=== PATIENT | female | born 1965 | race Caucasian/White ===

== ENCOUNTER → 2017-06-30 13:58 | Outpatient (CLI) | payer OTHER, SELFPAY ==
[2017-07-01 01:09] LABS: Rapid Plasmin Reagin (RPR) NONREACTIVE (NONREACTIVE)
== END ==
PROVIDERS: Nurse Practitioner Women's Health; Family Provider Family Medicine; PCP Family Medicine; Visit Provider Obstetrics & Gynecology
DX: Z11.3 Encounter for screening for infections with a predominantly sexual mode of transmission (principal)
CPT/HCPCS: 36415; 86592; 86695; 86696; 87340; 87522

== ENCOUNTER → 2017-06-30 20:31 | Outpatient (CLI) | payer OTHER, SELFPAY ==
[2017-06-30 22:24] LABS: Chlamydia Trachomatis by PCR Negative (Negative); Neisserai gonorrhoeae by PCR Negative (Negative); Probe Check PASS; Sample Adequacy Control PASS; Specimen Processing Control PASS
[2017-07-06 11:20] LABS: HPV APTIMA, High Risk Negative (Negative)
== END ==
PROVIDERS: Family Provider Family Medicine; PCP Family Medicine; Visit Provider Nurse Practitioner Women's Health
DX: Z11.3 Encounter for screening for infections with a predominantly sexual mode of transmission (principal); Z12.4 Encounter for screening for malignant neoplasm of cervix
CPT/HCPCS: 87491; 87591; 88175; G0145

== ENCOUNTER 2018-06-26 22:04 | Observation (INO) | payer OTHER, SELFPAY ==
[2018-06-26 22:05] VITALS: BP 175/108; PULSE 108; RESP 14; TEMP 36.9; O2SAT 96; BMI 37.8
[2018-06-26 22:11] VITALS: BP 175/108; PULSE 105; RESP 20; TEMP 36.9; O2SAT 94
--- NOTE | 2018-06-26 22:19 | EKG12_ITS ---
Test Reason : ABD PAIN/CP Blood Pressure : / mmHG Vent. Rate : 109 BPM Atrial Rate : 109 BPM P-R Int : 132 ms QRS Dur : 076 ms QT Int : 334 ms P-R-T Axes : 012 -38 048 degrees QTc Int : 449 ms Sinus tachycardia with occasional Premature ventricular complexes Nonspecific ST abnormality Abnormal ECG Confirmed by TYLER VERMA ([id number]), continuity editor YOHANA CHUN ([id number]) on 06/30/2018 1:24:40 PM Referred By: Nilton Nguyen Confirmed By:TYLER VERMA
[2018-06-26] MEDS: 0.9% Normal Saline 1,000 ML 125 ML IV (22:46)
[2018-06-26] MEDS: Ondansetron 4 MG/2 ML Vial IV (22:46)
[2018-06-26] MEDS: Morphine 4 MG/ML Syringe IV (22:48)
[2018-06-26 22:59] LABS: Absolute Lymphocyte Count 0.62 X10^3/ul (0.83-4.51); Absolute Neutrophil Count 5.8 X10^3/uL (2.0-7.7); Basophil# 0.02 X10^3/uL; Basophil% 0.3 % (0-1); Eosinophil# 0.02 X10^3/uL; Eosinophils% 0.3 % (0-5); Hematocrit 50.1 % (37-47); Hemoglobin 16.1 g/dl (12.0-15.0); Lymphocyte # 0.62 X10^3/ul (4.0); Lymphocyte % 9.2 % (19-41); Mean Corp Hgb Conc 32.1 g/gl (32-36); Mean Corpuscular Hgb 26.8 pg (27.0-32.0); Mean Corpuscular Volume 83.5 fL (81-99); Mean Platelet Vol. 10.3 fl (6.2-12.0); Monocyte# 0.28 X10^3/uL; Monocyte% 4.2 % (0-10); Neutrophil # 5.78 X10^3/uL (2.7-7.7); Neutrophil % 85.7 % (47-70); POSITIVE COUNT NO; POSITIVE DIFFERENTIAL NO; POSITIVE MORPHOLOGY NO; Platelet Count 237 K/mm3 (150-450); RBC Distribution Width CV 14.1 % (11.6-14.6); RBC Distribution Width SD 43.6 fl (35.1-43.9); White Blood Count 6.7 K/mm3 (4.4-11.0)
[2018-06-26 23:19] LABS: AST(SGOT) 24 U/L (15-37); Alanine Aminotransfer ALT/SGPT 27 U/L (13-56); Albumin, Serum 3.6 g/dL (3.2-5.0); Alkaline Phosphatase 79 U/L (45-117); Anion Gap 9 (5-15); BUN 11 mg/dL (7-18); BUN/Creat Ratio 13.4 RATIO (10-20); Bilirubin, Direct 0.15 mg/dL (0.00-0.30); Calcium,Total 8.7 mg/dL (8.5-10.1); Chloride 105 mmol/L (98-107); Creatinine, Serum 0.82 mg/dL (0.55-1.02); EST Glomerular Filtration Rate 78 mL/min (>60); Est Glom Filt Rate - Afr Amer 94 mL/min (>60); Estimated Creatinine Clearance 60.56 ml/min; Globulin 3.4 g/dL (2.2-4.2); Glucose 121 mg/dL (74-106); Lipase 80 U/L (73-393); Potassium 3.4 mmol/L (3.5-5.1); Sodium Level 138 mmol/L (136-145)
--- NOTE | 2018-06-26 23:58 | ED.VISSUMM ---
- ER Visit Summary Date of Service: 06/26/18 Chief Complaint: Abdominal pain History of Present Illness: The patient is a 53 F with diffuse abdominal pain he describes it as cramping sensation. He occasionally has radiated to the epigastric region but is mostly in the left lower quadrant and left flank. No chest pain or shortness of breath. No cough. No neck pain or headaches. No confusion. No rash or fever. Physical Examination: Mild tenderness in the left lower quadrant. Bowel sounds normal. No clinical evidence of DVT. Strong pulses in all extremities. Test Results: Labs are fairly unremarkable so far. CT scan is pending. Emergency Department Course and Treatment: Care will be turned over to the oncoming physician to check labs and CT scan. Treatment Plan: [] Disposition: [] Impression: [] This note was generated with [employer] dictation software. It may contain incorrect words, spelling, and punctuation that were not noted in review of the chart prior to signing ED Disposition - Plan for ED Patient: Referrals: Anibal Oliva III, MD [Primary Care Provider] -
[2018-06-27] VITALS (17 sets, daily range): BP systolic 101–154; BP diastolic 46–102; PULSE 73–106; RESP 14–19; TEMP 36.4–37.8; O2SAT 93–100; BMI 37.7
--- NOTE | 2018-06-27 | RAD_ITS ---
STUDY: X-RAY CHEST REASON FOR EXAM: Female, 53 years old. Epigastric pain. TECHNIQUE: Frontal and lateral views of the chest. COMPARISON: CT scan abdomen and pelvis done today. FINDINGS: There is mild atelectasis in the lung bases. Otherwise the lungs are clear and adequately expanded. There is no demonstrated pleural abnormality. Normal size heart. Normal mediastinum and johnnie. Normal visualized pulmonary arteries. Normal visualized aortic arch and descending thoracic aorta. There are multilevel degenerative changes of the visualized thoracic spine. Normal visualized ribs, clavicles, and shoulders. There is a small hiatal hernia. RAD/Chest PA and Lateral IMPRESSION: No evidence for acute cardiopulmonary pathology. Electronically Signed: Shin Bang MD at 1:06 EST , Service support ,
[2018-06-27] MEDS: Ketorolac 30 MG/ML Syringe IV (00:53)
[2018-06-27] MEDS: Dicyclomine 10 MG Capsule 20 MG PO (00:54)
[2018-06-27 01:20] LABS: Mucous, Urine 0 SEEN /hpf (<or=2+); Red Blood Cells-Urine 0 SEEN /hpf (0-5)
[2018-06-27 01:25] LABS: Color, Urine Yellow (Yellow); Glucose, Dipstick Normal (Normal); Ketone-Dipstick 5 mg/dl (Negative); Leukocyte Esterase-Dipstick 25 /ul (Negative); Nitrite-Dipstick Negative (Negative); Occult Blood-Urine 10 /ul (Negative); Protein-Dipstick 15 mg/dl (Negative); Urine Bilirubin Dipstick Negative (Negative); Urine Clarity Clear (Clear); Urine Urobilinogen Normal (Normal)
[2018-06-27 01:26] LABS: Bacteria RARE /hpf (None Seen); Squamous Epithelial Cells - UA 0-5 SEEN /hpf (5-10); White Blood Cells 0-5 SEEN /hpf (0-5)
--- NOTE | 2018-06-27 01:50 | ED.RN ---
PER DR. KO, SURGEON REQUESTED PT TO REMOVE ALL CLOTHING EXCEPT GOWN, BE PLACED IN TRENDELENBURG, ICE PACK APPLIED TO RIGHT GROIN. THIS RN COMPLETED VERBAL ORDERS REQUESTED. PT REQUESTING MORE PAIN MEDICATION. DR. KO AWARE.
--- NOTE | 2018-06-27 02:21 | CT_ITS ---
STUDY: CT ABDOMEN AND PELVIS WITHOUT CONTRAST REASON FOR EXAM: Female, 53 years old. Right inguinal hernia RADIATION DOSAGE (If Supplied By Facility): CTDIvol = ( 19.23 ) mGy, DLP = ( 994.47 ) mGycm TECHNIQUE: Transaxial images were obtained from the dome of the diaphragm to the symphysis pubis with oral contrast, and without intravenous contrast. Sagittal and coronal images were reconstructed. Individualized dose optimization techniques were used for this CT. COMPARISON: Same day FINDINGS: The visualized lung bases are unremarkable. The visualized portions of the heart are within normal limits. Interval decrease in size of hiatal hernia. Normal liver. There are surgical clips in the gallbladder fossa consistent with a prior cholecystectomy. Normal spleen. Normal pancreas. Normal bilateral adrenal glands. Bilateral peripelvic renal cysts. 2 cm left cortical renal cyst. Normal visualized stomach. 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 No evidence of associated volvulus. There is non-visualization of the appendix. Normal abdominal aorta. Normal inferior vena cava. Normal retroperitoneum. Normal urinary bladder. Pelvic surgical clips. Right inguinal hernia containing a segment of small bowel. When compared to exam from earlier same day, small bowel within the hernia is no longer dilated. No secondary signs of interval strangulation. The recently described associated mechanical small bowel obstruction has apparently resolved, as no residual small bowel dilation is seen. Anterior abdominal wall hernia repair. Normal osseous structures. CT/Abdomen/Pelvis without Cont IMPRESSION: Interval resolution of recently described mechanical small bowel obstruction. Small bowel loops within the right inguinal hernia are now normal in size and there are no secondary signs of strangulation. Interval decrease in size of hiatal hernia. Electronically Signed: Piyush Yepez MD at 3:15 EST Tel , Service support ,
--- NOTE | 2018-06-27 02:24 | PCM.HP.STD ---
Problem List (1) Incarcerated right inguinal hernia Status: Acute (2) SBO (small bowel obstruction) Status: Acute History of Present Illness Date of Admission: 06/27/18 The patient is a 53 year old F who presented to the emergency room with abdominal pain. She reports abdominal pain is in the epigastric region and radiates to the back. The patient reports that she has had nausea but no vomiting. She reports feeling very gassy. Past Medical History Medical History: Medical History (Last Updated 06/30/17 @ 13:26 by Theresa Sparks) Endometrial cancer C54.1 H/O: hysterectomy Onset Date: ~2005 Z98.890, Z90.710 Allergies Penicillins [PCN] Allergy (Verified 06/26/18 22:04) Swelling erythromycin base [Erythromycin Base] Adverse Reaction (Verified 06/26/18 22:04) Upset Stomach sulfamethoxazole [From Bactrim] Adverse Reaction (Verified 06/26/18 22:04) Upset Stomach trimethoprim [From Bactrim] Adverse Reaction (Verified 06/26/18 22:04) Upset Stomach MACROBID Allergy (Mild, Uncoded 06/26/18 22:04) Hives Home Medications: Ambulatory Orders Medication Instructions Recorded Lorazepam 0.5 mg PO PRN 04/23/13 Citalopram Hydrobromide [Celexa] 60 mg PO DAILY 08/26/13 buspirone 10 mg tablet 15 mg PO BID 06/30/17 gabapentin 300 mg capsule 300 mg PO QHS 06/30/17 Gabapentin [Neurontin] 100 mg PO DAILY 06/26/18 Hydrochlorothiazide 1 tablet PO DAILY 06/26/18 Surgical History: - - Hysterectomy, ventral hernia repair, cholecystectomy Smoking Status: Never smoker Alcohol: None Drugs: None - *Family History Maternal History Items: No pertinent history Review of Systems Constitutional: Reports: Anorexia. Denies: Fever HEENT: Denies: Difficulty Swallowing Cardiovascular: Denies: Chest Pain Respiratory: Denies: Cough, Shortness of Breath Gastrointestinal: Reports: Abdominal Pain, Nausea. Denies: Vomiting Genitourinary: Denies: Dysuria Musculoskeletal: Denies: Joint Tenderness Skin: Denies: Jaundice Neurological: Denies: Balance problems Hematologic/ Lymphatic: Denies: Anemia VTE Information - Inpt Only VTE Present on Admission: No VTE Mechan Device Prophylaxis: SCD's Patient Problems: Active and Suspected Problems (Last Updated 06/30/17 @ 13:26 by Theresa Sparks) Incarcerated right inguinal hernia (Acute) SBO (small bowel obstruction) (Acute) - Physical Exam General: Alert, Oriented x3, Cooperative Oral: Moist Mucosa Neck: No JVD Lungs: Normal air movement Cardiovascular: Regular rate, Regular Rhythm Abdomen: Soft, Non Tender, Non-Distended Extremities: No edema Musculoskeletal: No Muscle Wasting Neurological: Cranial nerves II-XII grossly intact Psych/Mental Status: Normal Affect Vital Signs Temp Pulse Resp BP Pulse Ox 99.3 F H 102 H 19 H 148/90 H 94 06/27/18 01:33 06/27/18 01:33 06/27/18 01:33 06/27/18 01:33 06/27/18 01:33 Oxygen Delivery Method Room Air Weight: 200 lb Body Mass Index (BMI) 37.8 Laboratory Tests Past 24 Hrs 06/26/18 06/26/18 06/27/18 22:50 22:50 01:10 WBC 6.7 RBC 6.00 H Hgb 16.1 H Hct 50.1 H MCV 83.5 MCH 26.8 L MCHC 32.1 RDW 14.1 RDW Differential 43.6 Plt Count 237 MPV 10.3 Immature Gran % (Auto) 0.300 Neut % (Auto) 85.7 H Lymph % (Auto) 9.2 L [place] % (Auto) 4.2 Eos % (Auto) 0.3 Baso % (Auto) 0.3 Absolute Neuts (auto) 5.8 Absolute Lymphs (auto) 0.62 L Total Counted Not Reportable Sodium 138 Potassium 3.4 L Chloride 105 Carbon Dioxide 24.0 Anion Gap 9 BUN 11 Creatinine 0.82 Estim Creat Clear Calc 60.56 Est GFR (MDRD) Af Amer 94 Est GFR (MDRD) Non-Af 78 BUN/Creatinine Ratio 13.4 Glucose 121 H Calcium 8.7 Total Bilirubin 0.60 Direct Bilirubin 0.15 AST 24 ALT 27 Alkaline Phosphatase 79 Troponin I < 0.015 Total Protein 7.0 Albumin 3.6 Globulin 3.4 Lipase 80 Urine Color Yellow Urine Clarity Clear Urine pH 6.0 Ur Specific [place] 1.010 Urine Protein 15 H Urine Glucose (UA) Normal Urine Ketones 5 H Urine Occult Blood 10 H Urine Nitrite Negative Urine Bilirubin Negative Urine Urobilinogen Normal Ur Leukocyte Esterase 25 H Urine RBC 0 SEEN Urine WBC 0-5 SEEN Ur Squamous Epith Cells 0-5 SEEN Urine Bacteria RARE Urine Mucus 0 SEEN Clinical Impression(s) from Imaging Studies Chest X-Ray 06/27/18 00:00 IMPRESSION: No evidence for acute cardiopulmonary pathology. Electronically Signed: Shin Bang MD at 1:06 EST , Service support , Abdomen/Pelvis CT 06/27/18 22:19 IMPRESSION: Right inguinal hernia contains a loop of jejunum. There is associated partial small bowel obstruction, but no evidence for strangulation. Developmental large and small bowel malrotation. There is no evidence for associated midgut volvulus.. Moderately large hiatal hernia. Minimal colonic diverticulosis, without evidence for acute diverticulitis. Previous ventral hernia repair. Left inguinal hernia contains fat, but no bowel. Previous cholecystectomy and hysterectomy. Renal cysts. No demonstrated urinary calculi or hydronephrosis. Atherosclerosis. N.B. : The above information has been verbally conveyed by Shin Bang MD to Dr. Anabela MD, on 06/27/2018 01:03:15 (ET). Electronically Signed: Shin Bang MD at 1:04 EST , Service support , ADDENDUM: 06/27/18 0111 IMPRESSION: Right inguinal hernia contains a loop of jejunum. There is associated partial small bowel obstruction, but no evidence for strangulation. Developmental large and small bowel malrotation. There is no evidence for associated midgut volvulus.. Moderately large hiatal hernia. Minimal colonic diverticulosis, without evidence for acute diverticulitis. Previous ventral hernia repair. Left inguinal hernia contains fat, but no bowel. Previous cholecystectomy and hysterectomy. Renal cysts. No demonstrated urinary calculi or hydronephrosis. Atherosclerosis. N.B. : The above information has been verbally conveyed by Shin Bang MD to Dr. Anabela MD, on 06/27/2018 01:03:15 (ET). Electronically Signed: Shin Bang MD at 1:04 EST , Service support , Assessment/Plan All Active Problems (Last Updated 06/30/17 @ 13:26 by Theresa Sparks) Incarcerated right inguinal hernia (Acute) SBO (small bowel obstruction) (Acute) 53-year-old female with incarcerated right inguinal hernia and small bowel obstruction 1. Patient was placed in Trendelenburg position and hernia was attempted to be reduced and repeat CT scan was performed. Repeat CAT scan showed that the contrast had reached the colon and that the loops of small bowel are nondilated. She still did have loops of bowel in her inguinal hernia but these were non-obstructed after reduction. I will admit the patient and keep her n.p.o. and take her for surgery in the morning for right inguinal hernia repair. It appears she is currently not obstructed and shows no signs of strangulation. 2. I discussed right inguinal hernia repair with the patient in detail. I discussed the risks including but not limited to bleeding, infection, injury to bowel or surrounding organs, chronic groin pain, placement of mesh with mesh infection. The patient understands the risks and is willing to proceed with surgery. Nilton Nguyen MD Pager: [facility] [address] [place] [address], [address] [place] [address] Office:
--- NOTE | 2018-06-27 02:29 | HP.PCM_ITS ---
Problem List (1) Incarcerated right inguinal hernia Status: Acute (2) SBO (small bowel obstruction) Status: Acute History of Present Illness Date of Admission: 06/27/18 The patient is a 53 year old F who presented to the emergency room with abdominal pain. She reports abdominal pain is in the epigastric region and radiates to the back. The patient reports that she has had nausea but no vomiting. She reports feeling very gassy. Past Medical History Medical History: Medical History (Last Updated 06/30/17 @ 13:26 by Theresa Sparks) Endometrial cancer C54.1 H/O: hysterectomy Onset Date: ~2005 Z98.890, Z90.710 Allergies Penicillins [PCN] Allergy (Verified 06/26/18 22:04) Swelling erythromycin base [Erythromycin Base] Adverse Reaction (Verified 06/26/18 22:04) Upset Stomach sulfamethoxazole [From Bactrim] Adverse Reaction (Verified 06/26/18 22:04) Upset Stomach trimethoprim [From Bactrim] Adverse Reaction (Verified 06/26/18 22:04) Upset Stomach MACROBID Allergy (Mild, Uncoded 06/26/18 22:04) Hives Home Medications: Ambulatory Orders Medication Instructions Recorded Lorazepam 0.5 mg PO PRN 04/23/13 Citalopram Hydrobromide [Celexa] 60 mg PO DAILY 08/26/13 buspirone 10 mg tablet 15 mg PO BID 06/30/17 gabapentin 300 mg capsule 300 mg PO QHS 06/30/17 Gabapentin [Neurontin] 100 mg PO DAILY 06/26/18 Hydrochlorothiazide 1 tablet PO DAILY 06/26/18 Surgical History: - - Hysterectomy, ventral hernia repair, cholecystectomy Smoking Status: Never smoker Alcohol: None Drugs: None - *Family History Maternal History Items: No pertinent history Review of Systems Constitutional: Reports: Anorexia. Denies: Fever HEENT: Denies: Difficulty Swallowing Cardiovascular: Denies: Chest Pain Respiratory: Denies: Cough, Shortness of Breath Gastrointestinal: Reports: Abdominal Pain, Nausea. Denies: Vomiting Genitourinary: Denies: Dysuria Musculoskeletal: Denies: Joint Tenderness Skin: Denies: Jaundice Neurological: Denies: Balance problems Hematologic/ Lymphatic: Denies: Anemia VTE Information - Inpt Only VTE Present on Admission: No VTE Mechan Device Prophylaxis: SCD's Patient Problems: Active and Suspected Problems (Last Updated 06/30/17 @ 13:26 by Theresa Sparks) Incarcerated right inguinal hernia (Acute) SBO (small bowel obstruction) (Acute) - Physical Exam General: Alert, Oriented x3, Cooperative Oral: Moist Mucosa Neck: No JVD Lungs: Normal air movement Cardiovascular: Regular rate, Regular Rhythm Abdomen: Soft, Non Tender, Non-Distended Extremities: No edema Musculoskeletal: No Muscle Wasting Neurological: Cranial nerves II-XII grossly intact Psych/Mental Status: Normal Affect Vital Signs Temp Pulse Resp BP Pulse Ox 99.3 F H 102 H 19 H 148/90 H 94 06/27/18 01:33 06/27/18 01:33 06/27/18 01:33 06/27/18 01:33 06/27/18 01:33 Oxygen Delivery Method Room Air Weight: 200 lb Body Mass Index (BMI) 37.8 Laboratory Tests Past 24 Hrs 06/26/18 06/26/18 06/27/18 22:50 22:50 01:10 WBC 6.7 RBC 6.00 H Hgb 16.1 H Hct 50.1 H MCV 83.5 MCH 26.8 L MCHC 32.1 RDW 14.1 RDW Differential 43.6 Plt Count 237 MPV 10.3 Immature Gran % (Auto) 0.300 Neut % (Auto) 85.7 H Lymph % (Auto) 9.2 L [place] % (Auto) 4.2 Eos % (Auto) 0.3 Baso % (Auto) 0.3 Absolute Neuts (auto) 5.8 Absolute Lymphs (auto) 0.62 L Total Counted Not Reportable Sodium 138 Potassium 3.4 L Chloride 105 Carbon Dioxide 24.0 Anion Gap 9 BUN 11 Creatinine 0.82 Estim Creat Clear Calc 60.56 Est GFR (MDRD) Af Amer 94 Est GFR (MDRD) Non-Af 78 BUN/Creatinine Ratio 13.4 Glucose 121 H Calcium 8.7 Total Bilirubin 0.60 Direct Bilirubin 0.15 AST 24 ALT 27 Alkaline Phosphatase 79 Troponin I < 0.015 Total Protein 7.0 Albumin 3.6 Globulin 3.4 Lipase 80 Urine Color Yellow Urine Clarity Clear Urine pH 6.0 Ur Specific [place] 1.010 Urine Protein 15 H Urine Glucose (UA) Normal Urine Ketones 5 H Urine Occult Blood 10 H Urine Nitrite Negative Urine Bilirubin Negative Urine Urobilinogen Normal Ur Leukocyte Esterase 25 H Urine RBC 0 SEEN Urine WBC 0-5 SEEN Ur Squamous Epith Cells 0-5 SEEN Urine Bacteria RARE Urine Mucus 0 SEEN Clinical Impression(s) from Imaging Studies Chest X-Ray 06/27/18 00:00 IMPRESSION: No evidence for acute cardiopulmonary pathology. Electronically Signed: Shin Bang MD at 1:06 EST , Service support , Abdomen/Pelvis CT 06/27/18 22:19 IMPRESSION: Right inguinal hernia contains a loop of jejunum. There is associated partial small bowel obstruction, but no evidence for strangulation. Developmental large and small bowel malrotation. There is no evidence for associated midgut volvulus.. Moderately large hiatal hernia. Minimal colonic diverticulosis, without evidence for acute diverticulitis. Previous ventral hernia repair. Left inguinal hernia contains fat, but no bowel. Previous cholecystectomy and hysterectomy. Renal cysts. No demonstrated urinary calculi or hydronephrosis. Atherosclerosis. N.B. : The above information has been verbally conveyed by Shin Bang MD to Dr. Anabela MD, on 06/27/2018 01:03:15 (ET). Electronically Signed: Shin Bang MD at 1:04 EST , Service support , ADDENDUM: 06/27/18 0111 IMPRESSION: Right inguinal hernia contains a loop of jejunum. There is associated partial small bowel obstruction, but no evidence for strangulation. Developmental large and small bowel malrotation. There is no evidence for associated midgut volvulus.. Moderately large hiatal hernia. Minimal colonic diverticulosis, without evidence for acute diverticulitis. Previous ventral hernia repair. Left inguinal hernia contains fat, but no bowel. Previous cholecystectomy and hysterectomy. Renal cysts. No demonstrated urinary calculi or hydronephrosis. Atherosclerosis. N.B. : The above information has been verbally conveyed by Shin Bang MD to Dr. Anabela MD, on 06/27/2018 01:03:15 (ET). Electronically Signed: Shin Bang MD at 1:04 EST , Service support , Assessment/Plan All Active Problems (Last Updated 06/30/17 @ 13:26 by Theresa Sparks) Incarcerated right inguinal hernia (Acute) SBO (small bowel obstruction) (Acute) 53-year-old female with incarcerated right inguinal hernia and small bowel o bstruction 1. Patient was placed in Trendelenburg position and hernia was attempted to be reduced and repeat CT scan was performed. Repeat CAT scan showed that the contrast had reached the colon and that the loops of small bowel are nondilated. She still did have loops of bowel in her inguinal hernia but these were non- obstructed after reduction. I will admit the patient and keep her n.p.o. and take her for surgery in the morning for right inguinal hernia repair. It appears she is currently not obstructed and shows no signs of strangulation. 2. I discussed right inguinal hernia repair with the patient in detail. I discussed the risks including but not limited to bleeding, infection, injury to bowel or surrounding organs, chronic groin pain, placement of mesh with mesh infection. The patient understands the risks and is willing to proceed with surgery. Nilton Nguyen MD Pager: [facility] [address] [place] [address], [address] [place] [address] Office:
[2018-06-27] MEDS: Morphine 2 MG/ML Syringe IV ×3 (04:25→23:24)
[2018-06-27] MEDS: 0.9% Normal Saline 1,000 ML 125 ML IV ×2 (04:26→09:55)
[2018-06-27] MEDS: 0.9% NaCl Peripheral Flush Adult/Peds IV (06:01)
[2018-06-27 06:33] LABS: Anion Gap 11 (5-15); BUN 10 mg/dL (7-18); BUN/Creat Ratio 12.1 RATIO (10-20); Calcium,Total 8.2 mg/dL (8.5-10.1); Chloride 105 mmol/L (98-107); Creatinine, Serum 0.83 mg/dL (0.55-1.02); EST Glomerular Filtration Rate 77 mL/min (>60); Est Glom Filt Rate - Afr Amer 93 mL/min (>60); Estimated Creatinine Clearance 59.83 ml/min; Glucose 115 mg/dL (74-106); Sodium Level 138 mmol/L (136-145)
[2018-06-27 06:34] LABS: Absolute Lymphocyte Count 0.39 X10^3/ul (0.83-4.51); Absolute Neutrophil Count 3.4 X10^3/uL (2.0-7.7); Basophil# 0.06 X10^3/uL; Basophil% 1.4 % (0-1); Eosinophil# 0.01 X10^3/uL; Eosinophils% 0.2 % (0-5); Hematocrit 44.8 % (37-47); Lymphocyte # 0.39 X10^3/ul (4.0); Lymphocyte % 9.4 % (19-41); Mean Corp Hgb Conc 31.3 g/gl (32-36); Mean Corpuscular Hgb 26.4 pg (27.0-32.0); Mean Corpuscular Volume 84.5 fL (81-99); Mean Platelet Vol. 10.2 fl (6.2-12.0); Monocyte# 0.35 X10^3/uL; Monocyte% 8.4 % (0-10); Neutrophil # 3.35 X10^3/uL (2.7-7.7); Neutrophil % 80.6 % (47-70); Platelet Count 198 K/mm3 (150-450); RBC Distribution Width CV 14.3 % (11.6-14.6); RBC Distribution Width SD 44.4 fl (35.1-43.9); White Blood Count 4.2 K/mm3 (4.4-11.0)
[2018-06-27 06:40] LABS: Differential Indicated SCAN CRITERIA MET; POSITIVE COUNT NO; POSITIVE DIFFERENTIAL YES; POSITIVE MORPHOLOGY NO
[2018-06-27 06:50] LABS: Reactive Lymphocyte RARE
--- NOTE | 2018-06-27 07:30 | HERN_PTH ---
PATIENT: ANGELITO LIVE LOC: MS3 U#:[id number] AGE/SX: 53/F ROOM: MS319 RE06/27/[address]: Dr. Nilton Nguyen MD : 1965 BED: 1 DIS: 06/28/2018 SPEC #: [id number] RECD: 06/27/18 12:08 STATUS: BOBBY TA #: [id number] RACHEL: 06/27/18 07:[address]: Nilton Nguyen DEPT: SURGICAL PATHOLOGY RECD BY: Kwabena Palm ENTERED: 06/27/18 13:05 SP TYPE: Hernia OTHR DR: Dr. Anibal Oliva III, MD Tissues: HERNIA Procedures: Surgery Specimen Level II HEADER OPERATION: Hernia, inguinal with mesh PRE-OP DIAGNOSIS: Incarcerated right inguinal hernia TISSUE SUBMITTED: Hernia sac MICROSCOPIC DIAGNOSIS Soft tissue of right inguinal region, excision: Hernia sac with mild fibrosis. AM:bo 06/28/18 MICROSCOPIC DESCRIPTION Slides are reviewed. GROSS DESCRIPTION Received in fixative is one container labeled with the patient's name and designated hernia sac. The specimen consists of an irregular piece of weaver-yellow adipose tissue measuring 9.5 x 4 x 1 cm. No mass lesion is identified. Pin Attacher sections are submitted in one cassette. / SJ:bo 06/27/18 TC:5 CPT: [id number]
--- NOTE | 2018-06-27 07:41 | NURSING ---
Called handoof down to PACU.
--- NOTE | 2018-06-27 07:44 | NURSING ---
off unit via bed for surgery
[2018-06-27] MEDS: Bupiv/Epi 0.25% 30 ML Vial (09:22)
[2018-06-27 10:36] LABS: Pathologist Review Reviewed
--- NOTE | 2018-06-27 12:05 | OP.PCM_ITS ---
Problem List (1) Incarcerated right inguinal hernia Status: Acute (2) SBO (small bowel obstruction) Status: Acute Report of Operation Date of Procedure: 06/27/18 Pre-Operative Diagnosis: Right inguinal hernia causing small bowel obstruction Post-Operative Diagnosis: Same Surgery/Procedure Performed:: Right inguinal hernia repair with mesh Specimen's removed: Hernia sac Description of Procedure: Patient was brought to surgery and general anesthesia was induced. The right groin is prepped and draped in the usual sterile fashion. Incision was marked between the ASIS and the pubic tubercle and then injected with lidocaine and an incision was made with a scalpel. This was deepened to the external aponeurosis using electrocautery. Next the external aponeurosis was nicked with a scalpel and the edges were raised with hemostats and using scissors this was extended to the external ring as well as proximally. The external aponeurosis was retracted and the hernia sac was identified and dissected free. The hernia sac was opened and inspected. There was a piece of small bowel inside of the hernia sac was reduced. It appeared very viable and pink. Next the hernia sac was suture ligated with a pursestring suture of 2-0 silk from the inside under direct visualization. The remainder of the hernia sac was then divided and sent for pathology. The hernia sac was reduced. The weak floor of the inguinal canal was reapproximated with interrupted 3-0 Vicryl sutures to reduce the tissue. Next a piece of polypropylene keyhole mesh was tacked to the pubic tubercle using 2-0 PDS suture. Next using interrupted 2-0 PDS sutures the lateral aspect of the mesh was tacked to the shelving portion of the inguinal ligament. The medial edge was tacked to the conjoined tendon using interrupted 2-0 PDS sutures. The tail was brought together and tied to obliterate the opening using 2-0 PDS sutures. The tails were tucked down and the inguinal canal was irrigated and suctioned. The external aponeurosis was then reapproximated using running 3-0 Vicryl suture. Phyllis's fascia was then reapproximated with interr upted 3-0 Vicryl suture. The skin was then anesthetized with Marcaine and closed with a running 4-0 Monocryl suture as well as glue. The patient tolerated the procedure well was brought back in stable condition. Grafts/Implants Used: Polypropylene keyhole mesh - Admit VTE Documentation VTE Mechan Device Prophylaxis: SCD's
[2018-06-27] MEDS: hydroCHLOROthiazide 12.5mg 12.5 MG PO (13:15)
[2018-06-27] MEDS: Citalopram 40 MG TABLET 60 MG PO (13:15)
[2018-06-27] MEDS: busPIRone 15 MG TABLET PO ×2 (13:16→21:12)
[2018-06-27] MEDS: Gabapentin 100 MG Capsule PO (13:16)
--- NOTE | 2018-06-27 15:01 | DCINST_ITS ---
Discharge Diet: Light diet - advance as tolerated Discharge Activity: Return to Normal Activity, May Not Drive - for 2-3 days or while taking narcotic pain meds., May Shower - with the bandage in place 1-2 days after surgery. Lifting Restrictions: 20 pounds for 4 weeks. Additional Activity Instructions:: Climbing stairs is fine, walking is encouraged. Sitting in bed may be uncomfortable. Sitting up using your lateral muscles (sitting up sideways) is usually more comfortable. Do not drive, work heavy equipment of sign legal documents for 24 hours. Pain medications may cause nausea, you should typically eat light foods as you take your pain medications. Pain medications may also cause constipation. If you have difficulty with this, discuss with your doctor. Call your doctor if your incision/area has: Continuous Slow Oozing, Sudden Increased Bleeding, Increased Pain/ Swelling, Increased Redness, Foul Smelling Discharge Call your doctor if you observe: Fever of 101 or Higher Suture Line Care: Avoid Pulling/Pushing, Avoid Pinching/Bending Cleanse incision/area with: Soap & Water Allergies/Adverse Reactions: Allergies Penicillins [PCN] Allergy (Verified 06/26/18 22:04) Swelling erythromycin base [Erythromycin Base] Adverse Reaction (Verified 06/26/18 22:04) Upset Stomach sulfamethoxazole [From Bactrim] Adverse Reaction (Verified 06/26/18 22:04) Upset Stomach trimethoprim [From Bactrim] Adverse Reaction (Verified 06/26/18 22:04) Upset Stomach MACROBID Allergy (Mild, Uncoded 06/26/18 22:04) Hives Medications to take at Discharge Citalopram Hydrobromide [Celexa] 60 mg PO DAILY 08/26/13 buspirone 10 mg tablet 15 mg PO BID 06/30/17 gabapentin 300 mg capsule 300 mg PO QHS 06/30/17 Gabapentin [Neurontin] 100 mg PO DAILY 06/26/18 Hydrochlorothiazide 1 tablet PO DAILY 06/26/18 Oxycodone HCl/Acetaminophen [Percocet 5/325] 1 - 2 tablet PO Q4H PRN PRN 7 Days #40 tablet 06/27/18 The following prescriptions were given: Oxycodone HCl/Acetaminophen [Percocet 5/325] 1 - 2 tablet PO Q4H PRN PRN 7 Days #40 tablet PRN Reason: Pain Primary Care Physician: Anibal Oliva III, MD [Primary Care Provider] - Test Results: Test results from this visit will be discussed in further detail at your follow- up appointment, if applicable. Please Follow Up With: Nilton Nguyen MD When: Call for 2 week follow up appt [phone]
[2018-06-27] MEDS: oxyCODONE 5 MG Tablet PO (15:39)
[2018-06-27] MEDS: Ensure Clear 120 ML Liquid PO ×2 (18:24→21:18)
[2018-06-27] MEDS: Acetaminophen 325 MG Tablet 650 MG PO (18:27)
[2018-06-27] MEDS: Gabapentin 300 MG Capsule PO (21:12)
--- NOTE | 2018-06-27 22:19 | CT_ITS ---
STUDY: CT ABDOMEN AND PELVIS WITH CONTRAST REASON FOR EXAM: Female, 53 years old. Lower abdominal pain tonight. Elevated blood pressure. History of uterine cancer. RADIATION DOSAGE (If Supplied By Facility): CTDIvol = ( 18.72 ) mGy, DLP = ( 1224.57 ) mGycm TECHNIQUE: Transaxial images were obtained from the dome of the diaphragm to the symphysis pubis with oral contrast. Isovue 300 100ML IV/Oral was administered. Sagittal and coronal images were reconstructed. Individualized dose optimization techniques were used for this CT. COMPARISON: 04/02/2015. FINDINGS: The visualized lung bases are unremarkable. The visualized portions of the heart are within normal limits. Normal liver. There are surgical clips in the gallbladder fossa consistent with a prior cholecystectomy. Normal spleen. Normal pancreas. Normal bilateral adrenal glands. There are prominent peripelvic cysts in both kidneys as well as a few small cortical cysts. There is no demonstrated urinary calculus or hydronephrosis. There is a moderately large hiatal hernia. There is a developmental small bowel malrotation with a non-extension of the duodenum across the midline. There is a right inguinal hernia containing a loop of jejunum. The afferent loops of jejunum are dilated, with diameters ranging up to 4.4 cm while the afferent loops are relatively decompressed, consistent with a partial small bowel obstruction. There is minimal fluid in the hernia sac, however, there is no demonstrated mural thickening of the herniated loops or significant fat infiltration to indicate strangulation. There is a developmental large bowel malrotation, with absence of a retroperitoneal and ascending colon and with location of the cecum in the left side of the pelvis. There are a few colonic diverticula consistent with diverticulosis. There is non-visualization of the appendix. There is no evidence for appendicitis. There is diffuse atherosclerotic calcification of the abdominal aorta, without a demonstrated aneurysm. Normal inferior vena cava. Normal retroperitoneum. Normal urinary bladder. There is absence of the uterus consistent with a prior hysterectomy. There is surgical mesh underlying the anterior midline abdomen, consistent with previous ventral hernia repair. There is a right inguinal hernia which contains a loop of jejunum, as described above. There is a left inguinal hernia which contains fat but no bowel. There are multilevel degenerative changes of the visualized lumbar spine. CT/Abdomen/Pelvis WITH Contrast IMPRESSION: Right inguinal hernia contains a loop of jejunum. There is associated partial small bowel obstruction, but no evidence for strangulation. Developmental large and small bowel malrotation. There is no evidence for associated midgut volvulus.. Moderately large hiatal hernia. Minimal colonic diverticulosis, without evidence for acute diverticulitis. Previous ventral hernia repair. Left inguinal hernia contains fat, but no bowel. Previous cholecystectomy and hysterectomy. Renal cysts. No demonstrated urinary calculi or hydronephrosis. Atherosclerosis. N.B. : The above information has been verbally conveyed by Shin Bang MD to Dr. Anabela MD, on 06/27/2018 01:03:15 (ET). Electronically Signed: Shin Bang MD at 1:04 EST , Service support ,
[2018-06-28 01:00] VITALS: RESP 16
[2018-06-28] MEDS: oxyCODONE 5 MG Tablet PO ×2 (06:18→10:25)
[2018-06-28 07:05] VITALS: O2SAT 96
[2018-06-28 08:02] VITALS: BP 149/84; PULSE 86; RESP 16; TEMP 36.9; O2SAT 96
[2018-06-28] MEDS: Gabapentin 100 MG Capsule PO (08:22)
[2018-06-28] MEDS: 0.9% NaCl Peripheral Flush Adult/Peds IV (08:40)
[2018-06-28] MEDS: Morphine 2 MG/ML Syringe IV (08:41)
[2018-06-28] MEDS: Citalopram 40 MG TABLET 60 MG PO (10:28)
[2018-06-28] MEDS: hydroCHLOROthiazide 12.5mg 12.5 MG PO (10:29)
[2018-06-28] MEDS: busPIRone 15 MG TABLET PO (10:29)
[2018-06-28] MEDS: Ensure Clear 120 ML Liquid PO (10:31)
[2018-06-28 10:51] VITALS: TEMP 36.8
[2018-06-28 14:35] VITALS: BP 153/84; PULSE 88; RESP 16; TEMP 37.1; O2SAT 94
--- NOTE | 2018-06-28 14:41 | NURSING ---
[facility] student nurse's charting reviewed for educational learning purposes by shira marroquin.
[2018-06-28] MEDS: Acetaminophen 325 MG Tablet 650 MG PO (15:52)
== END 2018-06-28 16:52 | disposition home or self-care (01) ==
LOC: ED 22:27 → MS3 06-27 03:00
PROVIDERS: Admitting Provider Surgery; Emergency Provider Emergency Medicine; Family Provider Family Medicine; PCP Family Medicine; Referring Provider Surgery; Visit Provider Surgery
PROC: (CPT 49507; principal; 2018-06-27 07:15)
DX: K40.30 Unilateral inguinal hernia, with obstruction, without gangrene, not specified as recurrent (principal); Z85.42 Personal history of malignant neoplasm of other parts of uterus; F41.9 Anxiety disorder, unspecified; F32.9 Major depressive disorder, single episode, unspecified; Z79.899 Other long term (current) drug therapy; I10 Essential (primary) hypertension; Z87.891 Personal history of nicotine dependence; G47.30 Sleep apnea, unspecified; G25.81 Restless legs syndrome
CPT/HCPCS: 49507; 36415; 71046; 74176; 74177; 80048; 80076; 81001; 83690; 84484; 85025; 88302; 93005; 96361; 96374; 96375; 96376; 97802; 99282; J7030; Q9967; A4216; C1781; J2405

== ENCOUNTER → 2018-08-25 12:36 | Outpatient (CLI) | payer OTHER, SELFPAY ==
[2018-06-27 07:28] VITALS: BMI 37.7
--- NOTE | 2018-08-25 12:45 | BI_ITS ---
MAMMOGRAPHY - BILATERAL SCREENING 3-D TOMOSYNTHESIS REASON FOR EXAM: Female, 53 years old. Bilateral Screening 3-D tomosynthesis PERTINENT HISTORY: Maternal grandmother at age 89 with history of breast cancer. Patient has lost 35 pounds in the interval. Bilateral reduction surgery in 1990.. TECHNIQUE: 2-D mammograms and 3-D Tomosynthesis of the breast (s) were performed. CAD was performed. COMPARISON: Digitized film-screen mammograms from outside institution dated May 31, 2011. FINDINGS: The breast composition is almost entirely fat. Scattered benign calcifications are seen. No dense spiculated masses or suspicious microcalcifications are identified. No architectural distortion is identified. There is no skin thickening or retraction. There are stable, subcentimeter, well-defined, reniform foci within bilateral breasts most compatible with intramammary lymph nodes. There are benign macrocalcifications within the anterior right breast. There has been no significant change since the prior study. BI/SCREENING MAMM (CAD), BILAT IMPRESSION: No mammographic signs of malignancy. Routine yearly mammograms recommended. ASSESSMENT CATEGORY: BIRADS Category 2: Benign. A letter regarding these results will be sent to the patient by the facility within 30 days. FOLLOW UP RECOMMENDATION: Yearly follow up mammogram recommended. (A) Approximately 10% of breast cancers are not detected by mammography. A normal mammogram should not delay biopsy of a clinically suspicious abnormality. Electronically Signed: Tank Herring MD at 16:01 EDT , Service support ,
== END ==
PROVIDERS: Family Provider Family Medicine; PCP Family Medicine; Referring Provider Nurse Practitioner Women's Health; Visit Provider Nurse Practitioner Women's Health
DX: Z12.31 Encounter for screening mammogram for malignant neoplasm of breast (principal)
CPT/HCPCS: 77063; 77067

== ENCOUNTER → 2018-09-27 | Outpatient (CLI) | payer OTHER, SELFPAY ==
[2018-09-27 13:36] VITALS: BMI 37.7
[2018-09-27 14:11] LABS: Mucous, Urine 0 SEEN /hpf (<or=2+)
[2018-09-27 14:19] LABS: Color, Urine Yellow (Yellow); Glucose, Dipstick Normal (Normal); Ketone-Dipstick 5 mg/dl (Negative); Leukocyte Esterase-Dipstick 500 /ul (Negative); Nitrite-Dipstick Positive (Negative); Occult Blood-Urine 10 /ul (Negative); Protein-Dipstick 15 mg/dl (Negative); Urine Bilirubin Dipstick Negative (Negative); Urine Clarity Sl. Cloudy (Clear); Urine Urobilinogen Normal (Normal)
[2018-09-27 14:38] LABS: Bacteria 2+ /hpf (None Seen); Red Blood Cells-Urine 0-5 SEEN /hpf (0-5); Squamous Epithelial Cells - UA 0-5 SEEN /hpf (5-10); White Blood Cells 25-50 SEEN /hpf (0-5)
== END | disposition home or self-care (01) ==
LOC: LABSPEC 14:06
PROVIDERS: Family Provider Family Medicine; PCP Family Medicine; Referring Provider Physician Assistant Medical; Visit Provider Physician Assistant Medical
DX: R30.0 Dysuria (principal)
CPT/HCPCS: 81001; 87086; 87088; 87186

== ENCOUNTER 2018-11-15 22:57 | Emergency (ER) | payer OTHER, SELFPAY ==
[2018-09-27 13:36] VITALS: BMI 37.7
[2018-11-15 22:59] VITALS: BP 163/103; PULSE 92; RESP 18; TEMP 36.1; O2SAT 96; BMI 35.1
--- NOTE | 2018-11-15 23:07 | ED.RN ---
corporate care transportation planner notified to see pt in ed room 8.
--- NOTE | 2018-11-15 23:11 | RAD_ITS ---
STUDY: X-RAY - LEFT FOOT CLINICAL: Female, 53 years old. Pain TECHNIQUE: 3 view(s) of the foot. COMPARISON: None. FINDINGS: Fourth digit amputation. Diffuse hindfoot osteoarthritis. No acute fractures or osteolytic lesions are seen. Soft tissue swelling. RAD/Foot min 3 Views IMPRESSION: Diffuse hindfoot osteoarthritis. No acute fractures or osteolytic lesions are seen. Electronically Signed: Piyush Yepez MD at 23:32 EDT Tel , Service support ,
--- NOTE | 2018-11-15 23:11 | RAD_ITS ---
STUDY: X-RAY - LEFT ANKLE REASON FOR EXAM: Female, 53 years old. Pain TECHNIQUE: 3 view(s) of the ankle. COMPARISON: None. FINDINGS: Diffuse hindfoot osteoarthritis. Tibiotalar osteoarthritis. Soft tissue swelling. No fractures or osteolytic lesions. Fourth digit amputation. RAD/Ankle min 3 Views IMPRESSION: Diffuse hindfoot osteoarthritis. Tibiotalar osteoarthritis. No fractures or osteolytic lesions. Electronically Signed: Piyush Yepez MD at 23:35 EDT Tel , Service support ,
--- NOTE | 2018-11-15 23:49 | ED.DCSUM_ITS ---
- ER Visit Summary Date of Service: 11/15/18 Chief Complaint: Left ankle injury History of Present Illness: The patient is a 53 F presenting with left ankle pain. She states she was walking at work. She felt a pop, sudden pain in left ankle. She states it felt like she was struck in the left ankle but did not get hit by anything. She was able to bear weight with pain. She denies other injuries. Physical Examination: Vitals are stable. Patient is afebrile. Alert no acute distress. HEENT exam is unremarkable. Neck is supple. Lungs are clear and equal bilaterally. Heart is regular rate and rhythm. Extremities tenderness left lateral and posterior ankle. Normal pulse. Tho mpson test is positive. Skin is warm and dry. No focal neurologic deficit. Remainder of exam is unremarkable. Emergency Department Course and Treatment: Left foot xray diffuse hindfoot osteoarthritis. No acute fractures or osteolytic lesions are seen. Left ankle xray shows diffuse hindfoot osteoarthritis. Tibiotalar osteoarthritis. No fractures or osteolytic lesions. Patient was given [place]. Advised to ice and elevate. She was put in a boot orthosis. She is advised nonweightbearing. She is given crutches. She is [facility]. Advised to return to the ED for worsening complaints. Disposition: Discharge home Impression: Left ankle injury, concern for Achilles tear This note was generated with [employer] dictation software. It may contain incorrect words, spelling, and punctuation that were not noted in review of the chart prior to signing ED Disposition - Plan for ED Patient: Instructions: Achilles Tendon Rupture, Sprain, Ankle, with X-Ray Prescriptions: Hydrocodone Bitart/Apap 5-325 [[place] 5MG-325MG] 1 tab PO Q6H PRN PRN 3 Days #10 tab PRN Reason: Pain Prescription Printed Referrals: [facility] [GROUP OF PHYSICIANS] - Laura Harris DO [STAFF PHYSICIAN] - Anibal Oliva III, MD [Primary Care Provider] -
--- NOTE | 2018-11-16 00:07 | ED.DEP ---
ED Disposition - Plan for ED Patient: Instructions: Achilles Tendon Rupture, Sprain, Ankle, with X-Ray Prescriptions: Hydrocodone Bitart/Apap 5-325 [[place] 5MG-325MG] 1 tablet PO Q6H PRN PRN 3 Days #10 tablet PRN Reason: Pain Referrals: Anibal Oliva III, MD [Primary Care Provider] - Laura Harris DO [STAFF PHYSICIAN] - [facility] [[facility] OF PHYSICIANS] -
[2018-11-16] MEDS: HYDROcodone Bitartrate/Apap 5/325 Tablet PO (00:36)
[2018-11-16 00:47] VITALS: BP 178/102; PULSE 84; RESP 18; O2SAT 99
== END 2018-11-16 00:51 | disposition home or self-care (01) ==
PROVIDERS: Emergency Provider Emergency Medicine; Family Provider Family Medicine; PCP Family Medicine
DX: S99.912A Unspecified injury of left ankle, initial encounter (principal); X50.1XXA Overexertion from prolonged static or awkward postures, initial encounter; Y93.01 Activity, walking, marching and hiking; Y92.89 Other specified places as the place of occurrence of the external cause; Y99.0 Civilian activity done for income or pay; I10 Essential (primary) hypertension; Z86.73 Personal history of transient ischemic attack (TIA), and cerebral infarction without residual deficits
CPT/HCPCS: 73610; 73630; 99283

== ENCOUNTER → 2018-12-01 12:01 | Outpatient (CLI) | payer OTHER, SELFPAY ==
[2018-11-20 09:06] VITALS: BMI 35.1
--- NOTE | 2018-12-01 12:05 | MRI_ITS ---
STUDY: MRI LEFT ANKLE WITHOUT CONTRAST REASON FOR EXAM: Female, 53 years old. Ankle pain TECHNIQUE: Standardized fat and water weighted pulse sequences were obtained in all 3 orthogonal planes. COMPARISON: None. FINDINGS: Normal subcutis adipose space. Normal posterior tibialis tendon. Normal flexor digitorum longus tendon. Normal flexor hallucis longus tendon. There is a tenosynovitis of the peroneal tendons without a demonstrated tendon tear. Normal tibialis anterior tendon. Normal extensor hallucis longus tendon. Normal extensor digitorum longus tendons. Severe noninsertional Achilles tendinitis with a full-thickness split tear of the Achilles tendon 5 cm proximal to the insertion. Normal plantar fascia. Normal plantar calcaneal tubercles. Normal intrinsic muscles of the rearfoot. Normal distal tibiofibular syndesmotic ligamentous complex. Normal lateral ligamentous complex. Normal subtalar ligaments and sinus tarsi. Normal deltoid ligamentous complexes. Normal plantar calcaneonavicular (spring) ligament. Normal tibiotalar articulation. Normal talar dome. Normal subtalar articulations. Normal talonavicular articulation. Mild midfoot arthrosis with erosions of the calcaneocuboid joint and the navicular-cuneiform joints. MRI/Lower Ext Joint Only (Routine) IMPRESSION: 1. Severe noninsertional Achilles tendinosis with a full-thickness split tear of the Achilles tendon 5 cm proximal to the insertion. 2. Mild peroneus brevis tenosynovitis. 3. Mild midfoot arthrosis. Electronically Signed: Charlie Alejandro MD at 13:44 EDT Tel , Service support ,
== END ==
PROVIDERS: Family Provider Family Medicine; PCP Family Medicine; Referring Provider Physician Assistant; Visit Provider Physician Assistant
DX: M25.572 Pain in left ankle and joints of left foot (principal); M65.9 Synovitis and tenosynovitis, unspecified
CPT/HCPCS: 73721

== ENCOUNTER 2020-04-25 19:37 | Observation (INO) | payer OTHER, SELFPAY ==
[2018-12-06 08:11] VITALS: BMI 35.1
[2020-04-25] VITALS (7 sets, daily range): BP systolic 144–171; BP diastolic 87–105; PULSE 76–94; RESP 16–17; TEMP 36.4–36.8; O2SAT 92–100; BMI 34.9; BMI 36.6
--- NOTE | 2020-04-25 19:57 | EKG12_ITS ---
Test Reason : DYSRHYTHMIA Blood Pressure : / mmHG Vent. Rate : 082 BPM Atrial Rate : 082 BPM P-R Int : 154 ms QRS Dur : 088 ms QT Int : 358 ms P-R-T Axes : 028 -01 072 degrees QTc Int : 418 ms Sinus rhythm with Premature atrial complexes with Aberrant conduction Nonspecific ST abnormality Abnormal ECG Confirmed by FALLON GOODWIN, HUGO ([id number]), editor in chief СЕРГЕЙ VALDERRAMA ([id number]) on 04/28/2020 8:56:45 AM Referred By: [facility] Confirmed By:HUGO LEHMAN MD
--- NOTE | 2020-04-25 19:58 | ED.VIS.GEN ---
History of Present Illness Chief Complaint: Dizziness Informant: Patient Narrative: 55-year-old female states that prior to arrival she was eating at [employer] in [place]. She states that she did not have anything unusual but she suddenly felt like she was going to pass out had nausea and lightheadedness. She states that last about a minute but she has had several intermittent episodes while driving from [place] to [place]. She states that her noted that she looked pale. She states that she was not sweaty or clammy. No palpitations. No chest pain. She states that her chest does feel different. She states that she was told she had a heart murmur prior to a surgery several years ago. Patient denies any diarrhea. No pain. She tells me that 7 8 years ago she was to have a surgery and she tells me she was diagnosed with a murmur and saw cardiology. She states nothing more is come from that. She also reports a history of sleep apnea that is gone untreated. She states she had the test and was fitted for the machine but could not get used to the machine so she stopped wearing it. Past Medical History - Allergies and Home Meds Allergies/Adverse Reactions: Allergies Penicillins [PCN] Allergy (Verified 04/25/20 19:40) Swelling erythromycin base [Erythromycin Base] Adverse Reaction (Verified 04/25/20 19:40) Upset Stomach sulfamethoxazole [From Bactrim] Adverse Reaction (Verified 04/25/20 19:40) Upset Stomach trimethoprim [From Bactrim] Adverse Reaction (Verified 04/25/20 19:40) Upset Stomach MACROBID Allergy (Mild, Uncoded 04/25/20 19:40) Hives Primary Care Physician: Anibal Oliva III, MD [Primary Care Provider] - Past Medical History: - - Hypertension stroke seizure Surgical History: - Lives: Spouse/ Significant Other Smoking Status: Former smoker Drugs: None - Family History Maternal Family History: Reports: No pertinent history Review of Systems General: Denies: Chills, Fever, Sweats Eyes: Denies: Visual changes - bilaterally, Diplopia ENT: Denies: Rhinorrhea, Sore throat Cardiovascular: Reports: - - Near syncope. Denies: Chest pain, Palpitations, Heart racing Respiratory: Denies: Dyspnea, Cough, Dyspnea on exertion Gastrointestinal: Reports: Nausea, -. Denies: Abdominal pain, Vomiting, Diarrhea, Melena, Hematochezia Genitourinary: Denies: Dysuria, Hematuria, Frequency Musculoskeletal: Denies: Back pain, Extremity Pain Skin: Denies: Rash, Wounds Neurological: Denies: Headache, Weakness, Numbness Physical Exam Vital Signs/Narrative: Vital Signs Temp Pulse Resp BP Pulse Ox 04/25/20 19:38 97.6 F L 91 16 150/87 H 92 Inital Vital Signs reviewed: Yes General: Well nourished, Well developed, No Acute Distress Head: Normocephalic, Atraumatic Eyes: Perrl, EOMI ENT: Moist mucous membranes, No rhinorrhea Neck: Supple, Nontender Cardiovascular: Regular rate, Regular rhythm, No murmurs Respiratory: No distress, CTA bilaterally, Chest nontender Abdomen: Soft, Nontender, Nondistended, Normal bowel sounds Back: Nontender, Normal Inspection Extremities: Nontender, No edema Skin: Normal color, No rash Neurological: Alert, Oriented x3, Cranial nerves II-XII grossly intact, Normal Strength, Normal Sensation Psychological: Normal affect, Normal Mood Diagnostic/Tx/Re-eval Clinical Impression(s) from Imaging Studies Chest X-Ray 04/25/20 20:20 IMPRESSION: Hiatal hernia. No acute disease. Electronically Signed: Darren Andersen MD at 20:55 EST , Service support , Laboratory Last Values WBC 6.8 K/mm3 (4.4-11.0) 04/25/20 20:25 RBC 6.15 M/mm3 (4.2-5.4) H 04/25/20 20:25 Hgb 15.9 g/dL (12.0-15.0) H 04/25/20 20:25 Hct 49.8 % (37-47) H 04/25/20 20:25 MCV 81.0 fL (81-99) 04/25/20 20:25 MCH 25.9 pg (27.0-32.0) L 04/25/20 20:25 MCHC 31.9 g/dL (32-36) L 04/25/20 20:25 RDW Std Deviation 50.2 fl (35.1-43.9) H 04/25/20 20:25 RDW Coeff of Love 18.4 % (11.6-14.6) H 04/25/20 20:25 Plt Count 303 K/mm3 (150-450) 04/25/20 20:25 MPV 10.2 fl (6.2-12.0) 04/25/20 20:25 Immature Gran % (Auto) 0.300 % (0.0-0.9) 04/25/20 20:25 Neut % (Auto) 64.2 % (47-70) 04/25/20 20:25 Lymph % (Auto) 25.2 % (19-41) 04/25/20 20:25 [place] % (Auto) 6.6 % (0-10) 04/25/20 20:25 Eos % (Auto) 1.2 % (0-5) 04/25/20 20:25 Baso % (Auto) 2.5 % (0-1) H 04/25/20 20:25 Absolute Neuts (auto) 4.4 X10^3/uL (2.0-7.7) 04/25/20 20:25 Absolute Lymphs (auto) 1.72 X10^3/uL (0.83-4.51) 04/25/20 20:25 Nucleated RBC % 0 % (0-5) 04/25/20 20:25 Sodium 142 mmol/L (136-145) 04/25/20 20:25 Potassium 3.1 mmol/L (3.5-5.1) L 04/25/20 20:25 Chloride 109 mmol/L (98-107) H 04/25/20 20:25 Carbon Dioxide 28.0 mmol/L (21.0-32.0) 04/25/20 20:25 Anion Gap 5 (5-15) 04/25/20 20:25 BUN 17 mg/dL (7-18) 04/25/20 20:25 Creatinine 0.96 mg/dL (0.55-1.02) 04/25/20 20:25 Estim Creat Clear Calc 50.55 ml/min 04/25/20 20:25 Est GFR (MDRD) Af Amer 78 mL/min (>60) 04/25/20 20:25 Est GFR (MDRD) Non-Af 64 mL/min (>60) 04/25/20 20:25 BUN/Creatinine Ratio 17.7 RATIO (10-20) 04/25/20 20:25 Glucose 130 mg/dL (74-106) H 04/25/20 20:25 Calcium 9.1 mg/dL (8.5-10.1) 04/25/20 20:25 Troponin I < 0.015 ng/mL (<0.045) 04/25/20 20:25 - EKG Initial EKG Interpretation: Sinus Rhythm - EKG demonstrates a sinus rhythm at a rate of 82 with PACs. No concerning features of ACS. - Medical Decision Making While on the monitor patient has had a couple episodes of nonsustained ventricular tachycardia. These have lasted about 10 beats each. She is slightly hypokalemic at 3.1. She is on HCTZ and states that she was on potassium supplementation but stopped. We are going to check a magnesium level. We gave her 40 mEq p.o. x1. I spoke with our on-call configuration engineer Dr. Lopez. We will plan on observing the patient tonight obtain echocardiogram in the morning. ED Disposition - Plan for ED Patient: Disposition: Acute Care Hospital [facility] Diagnosis: Non-sustained ventricular tachycardia, Hypokalemia, Near syncope Referrals: Anibal Oliva III, MD [Primary Care Provider] -
--- NOTE | 2020-04-25 20:20 | RAD_ITS ---
STUDY: X-RAY CHEST REASON FOR EXAM: Female, 55 years old. PT BECAME SUDDENLY DIZZY TONIGHT AND FELT LIKE SHE WAS GOING TO PASS OUT TECHNIQUE: Single frontal view of the chest. COMPARISON: 06/27/2018 FINDINGS: The lungs are clear and expanded. There is no demonstrated pleural abnormality. Normal size heart. Normal mediastinum and johnnie. Normal visualized pulmonary arteries. Normal visualized aortic arch and descending thoracic aorta. Normal visualized thoracic spine. Normal visualized ribs, clavicles, and shoulders. Hiatal hernia. RAD/Chest 1 View (Portable) IMPRESSION: Hiatal hernia. No acute disease. Electronically Signed: Darren Andersen MD at 20:55 EST , Service support ,
[2020-04-25] MEDS: 0.9% Normal Saline 1,000 ML 1000 ML IV (20:35)
[2020-04-25 20:38] LABS: Absolute Lymphocyte Count 1.72 X10^3/uL (0.83-4.51); Absolute Neutrophil Count 4.4 X10^3/uL (2.0-7.7); Basophil# 0.17 X10^3/uL; Basophil% 2.5 % (0-1); Eosinophil# 0.08 X10^3/uL; Eosinophils% 1.2 % (0-5); Hematocrit 49.8 % (37-47); Hemoglobin 15.9 g/dL (12.0-15.0); Lymphocyte # 1.72 X10^3/ul (4.0); Lymphocyte % 25.2 % (19-41); Mean Corp Hgb Conc 31.9 g/dL (32-36); Mean Corpuscular Hgb 25.9 pg (27.0-32.0); Mean Platelet Vol. 10.2 fl (6.2-12.0); Monocyte# 0.45 X10^3/uL; Monocyte% 6.6 % (0-10); NRBC Flagged by Analyzer 0 % (0-5); Neutrophil # 4.38 X10^3/uL (2.7-7.7); Neutrophil % 64.2 % (47-70); Platelet Count 303 K/mm3 (150-450); RBC Distribution Width CV 18.4 % (11.6-14.6); RBC Distribution Width SD 50.2 fl (35.1-43.9); Red Blood Count 6.15 M/mm3 (4.2-5.4); White Blood Count 6.8 K/mm3 (4.4-11.0)
[2020-04-25 21:00] LABS: Anion Gap 5 (5-15); BUN 17 mg/dL (7-18); BUN/Creat Ratio 17.7 RATIO (10-20); Calcium,Total 9.1 mg/dL (8.5-10.1); Chloride 109 mmol/L (98-107); Creatinine, Serum 0.96 mg/dL (0.55-1.02); EST Glomerular Filtration Rate 64 mL/min (>60); Est Glom Filt Rate - Afr Amer 78 mL/min (>60); Estimated Creatinine Clearance 50.55 ml/min; Glucose 130 mg/dL (74-106); Potassium 3.1 mmol/L (3.5-5.1); Sodium Level 142 mmol/L (136-145)
--- NOTE | 2020-04-25 21:50 | HP.PCM_ITS ---
Problem List (1) Near syncope Status: Acute (2) Non-sustained ventricular tachycardia Status: Acute (3) Hypokalemia Status: Acute (4) Chronic anemia Status: Chronic (5) Anxiety and depression Status: Chronic (6) Hypertension Status: Chronic Qualifiers: Hypertension type: essential hypertension Qualified Code(s): I10 - Essential (primary) hypertension (7) History of hemorrhagic cerebrovascular accident (CVA) without residual deficits Status: Chronic (8) Seizure disorder as sequela of cerebrovascular accident Status: Chronic (9) History of uterine cancer Status: Chronic (10) Obesity (BMI 30-39.9) Status: Chronic (11) CLARKE (obstructive sleep apnea) Status: Chronic (12) Former tobacco use Status: Chronic History of Present Illness Date of Admission: 04/25/20 Chief Complaint: Dizziness, near syncope The patient is a 55 y/o F w/ PMHx: Chronic anemia, Obesity, Seizure disorder, HTN, Hx endometrial CA, OA, Hx CVA, Anxiety and Depression who presents to the [facility] ED on 04/25/20 with history of onset near syncopal sensation while at dinner at [employer] in [place], noted sudden in nature with lightheadedness/dizziness (no spinning), noted she was very pale with nausea without emesis which resolved initially in < 1 minute however upon attempted return to home she had 2 similar episodes which lasted less long prompting eventual ED presentation. Patient denied any chest discomfort, palpitations, dyspnea with these episodes. Work-up in the ED included T 97.6, heart rate 91, BP 150/87 with not marked appearing orthostatic vital signs, respiratory rate 16, 92% on room air, CBC with WBC 6.8, hemoglobin 15.9, platelet 303 with no significant left shift, BMP with potassium 3.1, chloride 109, glucose 130, troponin less than 0.015, chest x-ray with no acute cardiopulmonary findings with evidence hiatal hernia, EKG with sinus rhythm with PACs however on monitor patient with couple episodes per ED physician of nonsustained ventricular tachycardia noted to be approximately 10 beats each. 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 In the ED patient ministered normal saline, potassium 40 mill equivalent p.o. x1. Past Medical History Past Medical History (Chronic Problems): Chronic Problems Chronic anemia (Chronic) Anxiety and depression (Chronic) Hypertension (Chronic) History of hemorrhagic cerebrovascular accident (CVA) without residual deficits (Chronic) Seizure disorder as sequela of cerebrovascular accident (Chronic) History of uterine cancer (Chronic) Obesity (BMI 30-39.9) (Chronic) CLARKE (obstructive sleep apnea) (Chronic) Former tobacco use (Chronic) Medical History: Medical History (Last Updated 09/27/18 @ 13:21 by Kavitha Zhang) Anemia D64.9 Arthritis M19.90 Right inguinal hernia K40.90 Seizures R56.9 Stroke I63.9 Hypertension I10 Endometrial cancer C54.1 Allergies Penicillins [PCN] Allergy (Verified 04/25/20 19:40) Swelling erythromycin base [Erythromycin Base] Adverse Reaction (Verified 04/25/20 19:40) Upset Stomach sulfamethoxazole [From Bactrim] Adverse Reaction (Verified 04/25/20 19:40) Upset Stomach trimethoprim [From Bactrim] Adverse Reaction (Verified 04/25/20 19:40) Upset Stomach MACROBID Allergy (Mild, Uncoded 04/25/20 19:40) Hives Home Medications: Ambulatory Orders Medication Instructions Recorded buspirone 10 mg tablet 15 mg PO BID 06/30/17 gabapentin 300 mg capsule 300 mg PO QHS PRN 06/30/17 Hydrochlorothiazide 1 tab PO DAILY 06/26/18 Duloxetine Hcl [Cymbalta] 60 mg PO DAILY 04/25/20 Loratadine 10 mg PO DAILY 04/25/20 Losartan Potassium [Cozaar] 50 mg PO DAILY 04/25/20 Meloxicam 7.5 mg PO QHS 04/25/20 Surgical History: Surgical History (Last Updated 09/27/18 @ 13:21 by Kavitha Zhang) History of cholecystectomy Z90.49 Status post club foot correction at Z87.76 s/p right inguinal hernia repair with mesh Onset Date: ~06/27/18 H/O: hysterectomy Onset Date: ~2005 Z98.890, Z90.710 Surgical History: - 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 Lives: Spouse/ Significant Other Smoking Status: Former smoker - Patient quit cigarette tobacco usage approximately 25 years prior to current presentation with prior to this 1 pack/day since approximately age 19. Tobacco Use: Non-smoker Alcohol: None Drugs: None - *Family History Maternal History Items: Hypertension Paternal History Items: High Cholesterol, Heart Disease, Hypertension Review of Systems Constitutional: Reports: Malaise, Weakness, Fatigue. Denies: Chills, Fever, Weight Change HEENT: Denies: Head Aches, Sinus Congestion, Sinus Drainage Cardiovascular: Reports: Light Headedness. Denies: Chest Pain, Chest Pressure, Chest Tightness, Orthopnea, Palpitations, Syncope Respiratory: Denies: Cough, Shortness of breath at rest, Sputum production Gastrointestinal: Reports: Nausea. Denies: Abdominal Pain, Vomiting Genitourinary: Denies: Dysuria Musculoskeletal: Reports: Joint Pain. Denies: Joint Tenderness Skin: Denies: Rash, Wounds Neurological: Denies: Numbness, Tingling, Focal weakness Psychiatric: Reports: Anxiety, Depression. Denies: Homicidal Ideations, Suicidal Ideations Hematologic/ Lymphatic: Reports: Anemia. Denies: Easy Bruising, Easy Bleeding VTE Information - Inpt Only VTE Present on Admission: No VTE Mechan Device Prophylaxis: SCD's VTE Pharm Prophylaxis ordered?: Yes Patient Problems: Active and Suspected Problems (Last Updated 09/27/18 @ 13:21 by Kavitha Zhang) Non-sustained ventricular tachycardia (Acute) Hypokalemia (Acute) Near syncope (Acute) Subjective: Patient seated upright in the ED bed, mildly fatigued appearance otherwise no acute distress, no chest discomfort, dyspnea, dizziness complaint at this time. Objective: Physical Examination: General: awake, alert, oriented x 3 and cooperative, seated upright in the ED bed in no apparent distress. Skin: normal color, turgor, no icterus, cyanosis. HEENT: AT/NC, EOMI, PERRLA, MMM, no carotid bruits or JVD noted. Lungs: CTA bilaterally, moderate effort, moderate decrease BL bases, no rales, ronchi or wheezing. Heart: Currently regular rate and rhythm; no gallop, rub audible, + SM. Abdomen: soft, obese, NTTP, ND, mildly hyperactive BS, no HSM. Extremities: no cyanosis, clubbing, or edema. Neurological: patient awake, alert, oriented as noted; cognitive function intact; pupils equally reactive to light and accomodation; cranial nerves II-XII grossly normal, moving all 4 extremities, no focal deficits, strength mildly globally Nara secondary to acute presentation and complaints. Psychiatric: affect appears mildly fatigued otherwise normal, no acute evidence of depressive or anxiety feelings. - Physical Exam Vitals/I&O's: Vital Signs Temp Pulse Resp BP Pulse Ox 97.6 F L 80 16 144/90 H 92 04/25/20 19:38 04/25/20 19:57 04/25/20 19:38 04/25/20 19:57 04/25/20 19:38 Oxygen Delivery Method Room Air Weight: 185 lb Body Mass Index (BMI) 34.9 Laboratory Results 04/25/20 20:25: WBC 6.8, RBC 6.15 H, Hgb 15.9 H, Hct 49.8 H, MCV 81.0, MCH 25.9 L, MCHC 31.9 L, RDW Std Deviation 50.2 H, RDW Coeff of Love 18.4 H, Plt Count 303, MPV 10.2, Immature Gran % (Auto) 0.300, Neut % (Auto) 64.2, Lymph % (Auto) 25.2, [place] % (Auto) 6.6, Eos % (Auto) 1.2, Baso % (Auto) 2.5 H, Absolute Neuts (auto) 4.4, Absolute Lymphs (auto) 1.72, Nucleated RBC % 0 04/25/20 20:25: Sodium 142, Potassium 3.1 L, Chloride 109 H, Carbon Dioxide 28.0, Anion Gap 5, BUN 17, Creatinine 0.96, Estim Creat Clear Calc 50.55, Est GFR (MDRD) Af Amer 78, Est GFR (MDRD) Non-Af 64, BUN/Creatinine Ratio 17.7, Glucose 130 H, Calcium 9.1, Troponin I < 0.015 Assessment/Plan All Active Problems (Last Updated 09/27/18 @ 13:21 by Kavitha Zhang) Non-sustained ventricular tachycardia (Acute) Hypokalemia (Acute) Near syncope (Acute) UTI (urinary tract infection) (Acute) Incarcerated right inguinal hernia (Acute) SBO (small bowel obstruction) (Acute) The patient is a 55 y/o F w/ PMHx: Chronic anemia, Obesity, Seizure disorder, HTN, Hx endometrial CA, OA, Hx CVA, Anxiety and Depression who presents to the [facility] ED on 04/25/20 with history of onset near syncopal sensation while at dinner at [employer] in [place], noted sudden in nature with lightheadedness/dizziness (no spinning), noted she was very pale with nausea without emesis which resolved initially in < 1 minute however upon attempted return to home she had 2 similar episodes which lasted less long prompting eventual ED presentation. 1. Near syncopal event likely secondary to nonsustained SVT: EKG in ED w/ sinus rhythm without evidence of acute ischemia however had 2 episodes of nonsustained SVT with 10 beats each on monitor (was not symptomatic when she had her episodes), CXR w/ no acute cardiopulmonary findings, initial trop normal. Will admit to PCU, place on a monitored bed to assure no acute myocardial infarction with serial cardiac enzymes and EKGs planned administration of supplemental potassium, magnesium level requested and supplementation will be performed if appropriate, TSH pending, will obtain echocardiogram, will initiate low dose BB therapy pending Cardiology assessment in AM. 2. Hypokalemia: Admission K+ 3.1, magnesium level requested, supplementation given, repeat level in AM. 3. Chronic anemia, unclear type: Admission hemoglobin 15.9, unclear prior type, MCV 81, encourage continued outpatient follow-up. 4. Anxiety and depression: We will continue patient home duloxetine and BuSpar regimen. 5. Hypertension: Continue home regimen including losartan, hydrochlorothiazide regimen with hold parameters given presentation, monitor electrolytes, PRN hydralazine. 6. 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 7. History of Uterine cancer: Remission, s/p radical hysterectomy, encourage continued outpatient follow-up. 8. Obesity: Weight loss and lifestyle changes encouraged. 9. CLARKE: Non-complaint with CPAP, will attempt usage again per her amenability especially given #1. 10. DVT prophylaxis: SCDs, Lovenox. 11. CODE status: Patient NADIYA is her son Osvaldo and living will is currently in place. Discussed CODE status at length including difference between FULL code, DNR-CCA and DNR-CC status. 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 Advanced Care Planning Face to Face Time: 16 minutes. OBSV E&M: 12028 Initial observation care L3 Procedures: 58755 Advncd Care Plan 30 Min
[2020-04-25 22:22] LABS: Magnesium 1.9 mg/dL (1.6-2.6)
--- NOTE | 2020-04-25 23:00 | ECHOD_ITS ---
Reason For Study: Arrhythmia Procedure This was a 2D Doppler, Color Flow transthoracic echocardiogram. Exam performed portable in patient room. Left Ventricle Normal LV size. Left ventricular systolic function is normal. The estimated ejection fraction is 65 %. Stage 1 diastolic dysfunction. No regional wall motion abnormalities noted. Right Ventricle Normal RV size. Normal systolic function. Atria Normal left atrium. Normal right atrium. Mitral Valve Mild mitral valve prolapse. Tricuspid Valve Normal tricuspid valve. Mild tricuspid valve insufficiency. Aortic Valve Normal aortic valve. Trisinus/trileaflet aortic valve. Pulmonic Valve Normal pulmonic valve. Great Vessels Normal aortic root. The pulmonary artery is normal size. Normal inferior vena cava. Pericardium/Pleural No pericardial effusion. MMode/2D Measurements & Calculations LVIDd: 3.8 cm IVSd: 1.1 cm Ao root diam: 3.3 cm LVIDs: 2.1 cm LVPWd: 1.1 cm RVDd: 3.3 cm FS: 44.3 % LAV(MOD-bp): 60.5 ml LA A4 area: 20.3 cm2 LA dimension(2D): 4.1 cm LAV(MOD-bp) Indexed: 32.5 ml/m2 LAV(MOD-sp2): 51.7 ml LAV(MOD-sp4): 60.8 ml RA A4 area: 13.5 cm2 Doppler Measurements & Calculations MV E max jewel: 80.8 cm/sec Lat Peak E' Jewel: 10.6 cm/sec Med Peak E' Jewel: 8.1 cm/sec MV A max jewel: 85.9 cm/sec E/E' lat: 7.6 E/E' med: 10.0 MV E/A: 0.94 Ao V2 max: 104.0 cm/sec LV V1 max: 79.7 cm/sec PA V2 max: 84.4 cm/sec Ao max P.3 mmHg LV V1 max P.5 mmHg TR max jewel: 220.6 cm/sec TR max P.5 mmHg Interpretation Summary Normal LV size. Left ventricular systolic function is normal. The estimated ejection fraction is 65 %. Stage 1 diastolic dysfunction. Mild mitral valve prolapse. Mild tricuspid valve insufficiency. Ordering Physician: Lucero Us Referring Physician: LIN Oliva M.D. Performed By: Chapis Claros RDCS
[2020-04-25] MEDS: Losartan Potassium 50 MG Tablet PO (23:36)
[2020-04-25] MEDS: Metoprolol Tartrate 25 MG Tablet PO (23:36)
[2020-04-25] MEDS: busPIRone 15 MG TABLET PO (23:37)
[2020-04-25] MEDS: Meloxicam 7.5 MG Tablet PO (23:38)
[2020-04-25] MEDS: Gabapentin 300 MG Capsule PO (23:41)
[2020-04-25 23:42] LABS: Cholesterol 216 mg/dL (200); High Density Lipoprotein 50 mg/dL; T4 Free Direct 0.99 ng/dL (0.76-1.46); Thyroid Stim Hormone (TSH) 3.55 uIU/mL (0.358-3.74); Triglycerides 331 mg/dL; Very Low Density Lipoprotein 66 mg/dL (5-40)
[2020-04-25] MEDS: Mag Hydrox/Al Hydrox/Simeth 30 ML UDC PO (23:42)
[2020-04-26] VITALS (18 sets, daily range): BP systolic 103–181; BP diastolic 55–105; PULSE 53–86; RESP 14–20; TEMP 36.2–36.8; O2SAT 87–96
[2020-04-26 05:24] LABS: Absolute Lymphocyte Count 2.11 X10^3/uL (0.83-4.51); Basophil# 0.16 X10^3/uL; Basophil% 2.8 % (0-1); Eosinophil# 0.12 X10^3/uL; Eosinophils% 2.1 % (0-5); Hemoglobin 13.7 g/dL (12.0-15.0); Lymphocyte # 2.11 X10^3/ul (4.0); Lymphocyte % 36.5 % (19-41); Mean Corp Hgb Conc 31.1 g/dL (32-36); Mean Corpuscular Hgb 25.3 pg (27.0-32.0); Mean Corpuscular Volume 81.2 fL (81-99); Mean Platelet Vol. 10.3 fl (6.2-12.0); Monocyte# 0.37 X10^3/uL; Monocyte% 6.4 % (0-10); NRBC Flagged by Analyzer 0 % (0-5); Neutrophil % 51.9 % (47-70); Platelet Count 257 K/mm3 (150-450); RBC Distribution Width CV 17.4 % (11.6-14.6); RBC Distribution Width SD 51.5 fl (35.1-43.9); Red Blood Count 5.42 M/mm3 (4.2-5.4); White Blood Count 5.8 K/mm3 (4.4-11.0)
[2020-04-26 05:49] LABS: ALB/GLOB Ratio 1.2 RATIO (0.9-2.4); AST(SGOT) 11 U/L (15-37); Alanine Aminotransfer ALT/SGPT 21 U/L (13-56); Albumin, Serum 2.9 g/dL (3.2-5.0); Alkaline Phosphatase 53 U/L (45-117); Anion Gap 5 (5-15); BUN 16 mg/dL (7-18); BUN/Creat Ratio 20.6 RATIO (10-20); Calcium,Total 8.5 mg/dL (8.5-10.1); Chloride 115 mmol/L (98-107); Creatinine, Serum 0.78 mg/dL (0.55-1.02); EST Glomerular Filtration Rate 82 mL/min (>60); Est Glom Filt Rate - Afr Amer 99 mL/min (>60); Estimated Creatinine Clearance 62.22 ml/min; Globulin 2.5 g/dL (2.2-4.2); Glucose 103 mg/dL (74-106); Potassium 3.5 mmol/L (3.5-5.1); Protein, Total 5.4 g/dL (6.4-8.2); Sodium Level 145 mmol/L (136-145)
--- NOTE | 2020-04-26 05:55 | EKG12_ITS ---
Test Reason : AM EKG Blood Pressure : / mmHG Vent. Rate : 054 BPM Atrial Rate : 054 BPM P-R Int : 166 ms QRS Dur : 080 ms QT Int : 402 ms P-R-T Axes : 038 011 251 degrees QTc Int : 381 ms Sinus bradycardia Nonspecific ST and T wave abnormality Abnormal ECG Confirmed by FALLON GOODWIN, HUGO ([id number]), publications editor СЕРГЕЙ VALDERRAMA ([id number]) on 04/29/2020 9:20:11 AM Referred By: CLIFTON Confirmed By:HUGO LEHMAN MD
[2020-04-26] MEDS: Metoprolol Tartrate 25 MG Tablet PO ×2 (09:42→21:43)
[2020-04-26] MEDS: Loratadine 10 MG Tablet PO (09:42)
[2020-04-26] MEDS: Enoxaparin 40 MG/0.4 ML Syringe SC (09:42)
[2020-04-26] MEDS: busPIRone 15 MG TABLET PO ×2 (09:42→20:23)
[2020-04-26] MEDS: hydroCHLOROthiazide 12.5mg 12.5 MG PO (09:43)
[2020-04-26] MEDS: DULoxetine Hcl 60 MG Capsule PO (09:44)
--- NOTE | 2020-04-26 09:53 | CON.PCM_ITS ---
Reason for Consult Date of Consultation: 04/26/20 Reason for Consultation: Presyncopal episode History of Present Illness: The patient is a 55 year old F with no previous cardiac history other than hypertension and hyperlipidemia who went to eat at [employer]. After she ordered her fettuccine Ashwin she started getting dizzy and felt that she was going to pass out. This happened on 2 occasions. Her then told her that they needed to go home and while she was getting to the car she also nearly passed out. This was not preceded by any chest pain or palpitations. This is the first episode of this symptomatology. She has had no pedal edema no neck arm or jaw discomfort suggest angina. The emergency medical squad was called and at the time of the saw had an EKG was done with a rhythm strip demonstrating a 9 beat run of a wide-complex tachycardia. She was brought to the emergency room she was noted to be mildly hypokalemic. She was admitted to the telemetry care unit. She has had no further symptomatology. [] Past Medical History Allergies/Adverse Reactions: Allergies Penicillins [PCN] Allergy (Verified 04/25/20 19:40) Swelling erythromycin base [Erythromycin Base] Adverse Reaction (Verified 04/25/20 19:40) Upset Stomach sulfamethoxazole [From Bactrim] Adverse Reaction (Verified 04/25/20 19:40) Upset Stomach trimethoprim [From Bactrim] Adverse Reaction (Verified 04/25/20 19:40) Upset Stomach MACROBID Allergy (Mild, Uncoded 04/25/20 19:40) Hives Home Medications: Ambulatory Orders Medication Instructions Recorded buspirone 10 mg tablet 15 mg PO BID 06/30/17 gabapentin 300 mg capsule 300 mg PO QHS PRN 06/30/17 Hydrochlorothiazide 1 tab PO DAILY 06/26/18 Duloxetine Hcl [Cymbalta] 60 mg PO DAILY 04/25/20 Loratadine 10 mg PO DAILY 04/25/20 Losartan Potassium [Cozaar] 50 mg PO DAILY 04/25/20 Meloxicam 7.5 mg PO QHS 04/25/20 Past Medical History (Chronic Problems): Chronic Problems Chronic anemia (Chronic) Anxiety and depression (Chronic) Hypertension (Chronic) History of hemorrhagic cerebrovascular accident (CVA) without residual deficits (Chronic) Seizure disorder as sequela of cerebrovascular accident (Chronic) History of uterine cancer (Chronic) Obesity (BMI 30-39.9) (Chronic) CLARKE (obstructive sleep apnea) (Chronic) Former tobacco use (Chronic) Surgical History: - 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 - *Family History Maternal History Items: Hypertension Paternal History Items: High Cholesterol, Heart Disease, Hypertension Lives: Spouse/ Significant Other Smoking Status: Former smoker - Patient quit cigarette tobacco usage approximately 25 years prior to current presentation with prior to this 1 pack/day since approximately age 19. Tobacco Use: Non-smoker Alcohol: None Drugs: None Review of Systems - Review of Systems General: Denies: Fever, Night Sweats, Fatigue HEENT: Denies: Vision Change Cardiovascular: Reports: Dizziness, Near Syncope. Denies: Chest Discomfort, Shortness of Breath, Orthopnea, PND, Peripheral Edema, Palpitations, Lightheadedness, Syncope Respiratory: Denies: Cough, Sputum Production, Hemoptysis Gastrointestinal: Denies: Hematemesis, Hematochezia, Melena Genitourinary: Denies: Dysuria, Hematuria Skin: Denies: Rash Psychiatric: Reports: Anxiety Endocrine: Denies: Heat Intolerance Hematologic/ Lymphatic: Denies: Anemia Subjectve: Pleasant lady in no distress Objective: Vital Signs Temp Pulse Resp BP Pulse Ox 97.8 F 66 14 125/58 H 94 04/26/20 09:15 04/26/20 09:42 04/26/20 09:15 04/26/20 09:42 04/26/20 09:15 Oxygen Flow Rate (L/min) 2 Oxygen Delivery Method Nasal Cannula Weight: 193 lb 9.054 oz Body Mass Index (BMI) 36.6 Intake and Output for Last 24 Hours 04/24/20 04/25/20 04/26/20 23:59 23:59 23:59 Intake Total 1000 / 1000 120 / 120 Balance 1000 / 1000 120 / 120 General: Awake, Alert, Oriented x 3 HEENT: PERRL, EOMI, Sclera Non Icteric Neck: Supple, Good ROM, No Lymph Node Enlargement Lungs: Clear to auscultation Cardiovascular: Regular Rhythm, Normal S1, Normal S2, No Murmurs, No Rubs, No Gallops Vascular: No Carotid Bruits, Normal Femoral Pulses, Normal Radial Pulses, Normal Dorsalis Pedal Pulse, Normal Posterior Tibial Pulses Abdomen: Bowel Sounds Present, Soft, Non Tender, No HSM, No Organomegaly Extremities: No Cyanosis, No Clubbing, No edema Musculoskeletal: No Erythema Skin: No Rashes Lymphatic: No Lymph Node Enlargement Neurological: No Focal Motor or Sensory Deficit Psych/Mental Status: Appropriate 04/25/20 20:25: WBC 6.8, RBC 6.15 H, Hgb 15.9 H, Hct 49.8 H, MCV 81.0, MCH 25.9 L, MCHC 31.9 L, Plt Count 303, MPV 10.2, Immature Gran % (Auto) 0.300, Neut % (Auto) 64.2, Lymph % (Auto) 25.2, Callahan % (Auto) 6.6, Eos % (Auto) 1.2, Baso % (Auto) 2.5 H, Absolute Neuts (auto) 4.4, Nucleated RBC % 0 04/25/20 20:25: Sodium 142, Potassium 3.1 L, Chloride 109 H, Carbon Dioxide 28.0 , Anion Gap 5, BUN 17, Creatinine 0.96, Est GFR (MDRD) Af Amer 78, Est GFR (MDRD) Non-Af 64, BUN/Creatinine Ratio 17.7, Glucose 130 H, Calcium 9.1, Troponin I < 0.015 04/25/20 20:25: Magnesium 1.9 04/25/20 20:25: Triglycerides 331 H, Cholesterol 216 H, LDL Cholesterol 100, VLDL Cholesterol 66 H, HDL Cholesterol 50 04/26/20 01:25: Troponin I < 0.015 04/26/20 05:12: WBC 5.8, RBC 5.42 H, Hgb 13.7, Hct 44.0, MCV 81.2, MCH 25.3 L, MCHC 31.1 L, Plt Count 257, MPV 10.3, Immature Gran % (Auto) 0.300, Neut % (Auto) 51.9, Lymph % (Auto) 36.5, Callahan % (Auto) 6.4, Eos % (Auto) 2.1, Baso % (Auto) 2.8 H, Absolute Neuts (auto) 3.0, Nucleated RBC % 0 04/26/20 05:12: Sodium 145, Potassium 3.5, Chloride 115 H, Carbon Dioxide 25.0, Anion Gap 5, BUN 16, Creatinine 0.78, Est GFR (MDRD) Af Amer 99, Est GFR (MDRD) Non-Af 82, BUN/Creatinine Ratio 20.6 H, Glucose 103, Calcium 8.5, Total Bilirubin 0.30 04/26/20 05:12: Troponin I < 0.015 Rhythm: Normal sinus rhythm with a wide complex tachycardia of 9 beats of over 200 bpm EKG: Normal sinus rhythm with no acute changes ECHO: Pending Stress Test: Cardiac Cath: PCI: CT Surgery: Holter monitor: EPS: PPM: CXR: Chest CT Scan: Assessment/Plan 1. Presyncopal episode * She presents with an episode of presyncope with a normal EKG and rhythm strip demonstrating a wide-complex tachycardia at the pretty fast rate. This appears to be fairly malignant and symptomatic. I would therefore recommend that we obtain an echocardiogram to assess her ventricular function * Consider coronary ischemia as a possible etiology and exclude the above. I would therefore recommend a cardiac catheterization. If the above is normal then further recommendations will be made. * Electrolyte replacement would be aggressive. * Would recommend discontinuing the hydrochlorothiazide * I have discussed the above with her in detail she understands and agrees to proceed. 2. Hypertension * Good control would recommend DC hydrochlorothiazide * Use an JAJA inhibitor instead * 3. Risk factor modification We will continue with aggressive risk factor modification.Thank you for allowing me to participate in the care of your patient. Please don't hesitate to call if any issues arise.
--- NOTE | 2020-04-26 12:33 | PN_ITS ---
<Dora Hitchcock INVESTIGATION MANAGER - Last Filed: 04/26/20 12:43> Patient Problems: Active and Suspected Problems (Last Updated 09/27/18 @ 13:21 by Kavitha Zhang) Non-sustained ventricular tachycardia (Acute) Hypokalemia (Acute) Near syncope (Acute) Subjective: Patient seen and examined. Denies further lightheadedness, presyncope/syncope. States she has been experiencing these symptoms off and on over the past week. Denies palpitations, chest pain. - Physical Exam Vitals/I&O's: Vital Signs Temp Pulse Resp BP Pulse Ox 97.8 F 61 15 138/83 H 93 04/26/20 12:01 04/26/20 12:01 04/26/20 12:04/26/20 12:04/26/20 12:01 Oxygen Flow Rate (L/min) 2 Oxygen Delivery Method Room Air Weight: 193 lb 9.054 oz Body Mass Index (BMI) 36.6 Intake and Output for Last 24 Hours 04/24/20 04/25/20 04/26/20 23:59 23:59 23:59 Intake Total 1000 / 1000 640 / 640 Balance 1000 / 1000 640 / 640 General: Alert, Oriented x3, Cooperative HEENT: Atraumatic, PERRLA, EOMI, Normocephalic Neck: Supple, No JVD, Negative Carotid Bruits Lungs: Clear to auscultation, Normal air movement Cardiovascular: Regular rate, Regular Rhythm, Normal S1, Normal S2, No murmurs, - - PVCs on monitor Abdomen: Bowel Sounds Present, Soft, Non Tender, Non-Distended Extremities: No clubbing, No cyanosis, No edema, Capillary Refill Less than 3 Seconds Skin: No rashes, No breakdown Musculoskeletal: No Tenderness to Palpation of Joints or Extremities Neurological: Cranial nerves II-XII grossly intact, Neuro grossly intact Psych/Mental Status: Normal Affect, Appropriate Laboratory Results 04/25/20 20:25: WBC 6.8, RBC 6.15 H, Hgb 15.9 H, Hct 49.8 H, MCV 81.0, MCH 25.9 L, MCHC 31.9 L, RDW Std Deviation 50.2 H, RDW Coeff of Love 18.4 H, Plt Count 303, MPV 10.2, Immature Gran % (Auto) 0.300, Neut % (Auto) 64.2, Lymph % (Auto) 25.2, Whitley % (Auto) 6.6, Eos % (Auto) 1.2, Baso % (Auto) 2.5 H, Absolute Neuts (auto) 4.4, Absolute Lymphs (auto) 1.72, Nucleated RBC % 0 04/25/20 20:25: Sodium 142, Potassium 3.1 L, Chloride 109 H, Carbon Dioxide 28.0, Anion Gap 5, BUN 17, Creatinine 0.96, Estim Creat Clear Calc 50.55, Est GFR (MDRD) Af Amer 78, Est GFR (MDRD) Non-Af 64, BUN/Creatinine Ratio 17.7, Glucose 130 H, Calcium 9.1, Troponin I < 0.015 04/25/20 20:25: Magnesium 1.9 04/25/20 20:25: Triglycerides 331 H, Cholesterol 216 H, LDL Cholesterol 100, VLDL Cholesterol 66 H, HDL Cholesterol 50, TSH 3.55, Free T4 0.99 04/26/20 01:25: Troponin I < 0.015 04/26/20 05:12: WBC 5.8, RBC 5.42 H, Hgb 13.7, Hct 44.0, MCV 81.2, MCH 25.3 L, MCHC 31.1 L, RDW Std Deviation 51.5 H, RDW Coeff of Love 17.4 H, Plt Count 257, MPV 10.3, Immature Gran % (Auto) 0.300, Neut % (Auto) 51.9, Lymph % (Auto) 36.5, Whitley % (Auto) 6.4, Eos % (Auto) 2.1, Baso % (Auto) 2.8 H, Absolute Neuts (auto) 3.0, Absolute Lymphs (auto) 2.11, Nucleated RBC % 0 04/26/20 05:12: Sodium 145, Potassium 3.5, Chloride 115 H, Carbon Dioxide 25.0, Anion Gap 5, BUN 16, Creatinine 0.78, Estim Creat Clear Calc 62.22, Est GFR (MDRD) Af Amer 99, Est GFR (MDRD) Non-Af 82, BUN/Creatinine Ratio 20.6 H, Glucose 103, Calcium 8.5, Total Bilirubin 0.30, AST 11 L, ALT 21, Alkaline Phosphatase 53, Total Protein 5.4 L, Albumin 2.9 L, Globulin 2.5, Albumin/Globulin Ratio 1.2 04/26/20 05:12: Troponin I < 0.015 Current Medications Acetaminophen (Acetaminophen 325 Mg Tablet) 650 mg PO Q6H PRN PRN PRN Reason: Pain Score 1-10/Temp > 100.7 F Al Hydroxide/Mg Hydroxide (Mag Hydrox/Al Hydrox/Simeth 30 Ml Udc) 30 ml PO Q6H PRN PRN PRN Reason: Gastric Burning Last Admin: 04/25/20 23:42 Dose: 30 ml Documented by: Albuterol Sulfate (Albuterol 2.5 Mg/3 Ml Vial.Neb.) 2.5 mg INHALATION Q2H PRN PRN PRN Reason: Dyspnea, wheezing Buspirone HCl (Buspirone 15 Mg Tablet) 15 mg PO BID [facility] Last Admin: 04/26/20 09:42 Dose: 15 mg Documented by: Duloxetine HCl (Duloxetine Hcl 60 Mg Capsule) 60 mg PO DAILY [facility] Last Admin: 04/26/20 09:44 Dose: 60 mg Documented by: Enoxaparin Sodium (Enoxaparin 40 Mg/0.4 Ml Syringe) 40 mg SC DAILY [facility] Last Admin: 04/26/20 09:42 Dose: 40 mg Documented by: Gabapentin (Gabapentin 300 Mg Capsule) 300 mg PO QHS PRN PRN PRN Reason: Pain/Inflammation Last Admin: 04/25/20 23:41 Dose: 300 mg Documented by: Guaifenesin (Guaifenesin 10 Ml Udc (200mg/10ml)) 20 ml PO Q4H PRN PRN PRN Reason: COUGH Hydralazine HCl (Hydralazine 20 Mg/Ml Vial) 10 mg IV Q4H PRN PRN PRN Reason: SBP > 160 Loratadine (Loratadine 10 Mg Tablet) 10 mg PO DAILY [facility] Last Admin: 04/26/20 09:42 Dose: 10 mg Documented by: Losartan Potassium (Losartan Potassium 50 Mg Tablet) 50 mg PO DAILY [facility] Last Admin: 04/25/20 23:36 Dose: 50 mg Documented by: Magnesium Hydroxide (Magnesium Hydroxide 30 Ml Udc) 30 ml PO DAILY PRN PRN PRN Reason: Constipation Meloxicam (Meloxicam 7.5 Mg Tablet) 7.5 mg PO QHS [facility] Last Admin: 04/25/20 23:38 Dose: 7.5 mg Documented by: Metoprolol Tartrate (Metoprolol Tartrate 25 Mg Tablet) 25 mg PO BID [facility] Last Admin: 04/26/20 09:42 Dose: 25 mg Documented by: Nitroglycerin (Nitroglycerin (Inpatient Use) 0.4 Mg Tab.Subl) 0.4 mg SUBLINGUAL Q5M PRN PRN Reason: CARDIAC/CHEST PAIN Ondansetron HCl (Ondansetron 4 Mg/2 Ml Vial) 4 mg IV Q8H PRN PRN PRN Reason: NAUSEA/VOMITING Prochlorperazine Edisylate (Prochlorperazine 10 Mg/2 Ml Vial) 5 mg IV Q4H PRN PRN PRN Reason: Breakthrough Nausea/Vomiting Psyllium Hydrophilic Mucilloid (Psyllium 1 Packet) 1 packet PO DAILY PRN PRN PRN Reason: Constipation Senna/Docusate Sodium (Senna/Docusate Sodium 1 Tablet) 2 tablet PO BID PRN PRN PRN Reason: Constipation Sodium Chloride (0.9% Saline Lock 10 Ml Syringe) 10 - 40 ml IV UD PRN PRN Reason: SALINE FLUSH Temazepam (Temazepam 15 Mg Capsule) 15 mg PO QHS PRN PRN PRN Reason: INSOMNIA Throat Lozenges (Benzocaine/Menthol 1 Lozenge) 1 lozenge MUCOUS MEM Q2H PRN PRN PRN Reason: SORE THROAT Medical Necessity - Tobacco Use Smoking Status: Former smoker - Patient quit cigarette tobacco usage approximately 25 years prior to current presentation with prior to this 1 pack/day since approximately age 19. Tobacco Use: Non-smoker Assessment/Plan All Active Problems (Last Updated 09/27/18 @ 13:21 by Kavitha Zhang) Non-sustained ventricular tachycardia (Acute) Hypokalemia (Acute) Near syncope (Acute) UTI (urinary tract infection) (Acute) Incarcerated right inguinal hernia (Acute) SBO (small bowel obstruction) (Acute) 1. Presyncope, nonsustained wide-complex tachycardia-cardiology consulted. Echocardiogram pending. Plan for heart cath on Tuesday. HCTZ discontinued. Initiated on metoprolol 25 mg twice daily. PVCs on monitor however no further wide-complex tachycardia since about 8 PM last night. Troponin negative. 2. Hypokalemia- replaced per protocol. Mag normal. 3. Hypertension-stable. HCTZ discontinued. Continue losartan regimen. 4. Hyperlipidemia-lipid panel elevated. Initiate statin. 5. 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 6. History of uterine cancer-in remission. 7. CLARKE-reports she has not worn CPAP in 12 years. Encouraged outpatient follow-up for repeat sleep study. 8. Anxiety/depression-continue home duloxetine, BuSpar. DVT prophylaxis- Lovenox sc This patient was seen by IRENA Ugalde under the supervision of Dr. Calzada. <Fabian Calzada - Last Filed: 04/26/20 14:48> Objective: Patient was admitted with dizziness and lightheadedness but no syncope. No vertigo. Currently she does not have dizziness and vertigo. Orthostatic vitals was negative for hypotension or tachycardia. groundwater monitoring technician shows 9 beats of NSVT, PVCs, pulsus bigeminy. Physical exam General: Alert, Oriented x3, Cooperative HEENT: Atraumatic, PERRLA, EOMI, Normocephalic Oral: No Gingival or Mucosal Lesions/ Ulcerations Neck: Supple, No JVD, Negative Carotid Bruits Lungs: Air entry equal in bilateral lung bases. No crepitation/rhonchi Cardiovascular: Regular rate, Regular Rhythm, Normal S1, Normal S2, No murmurs Abdomen: Bowel Sounds Present, Soft, Non Tender, Non-Distended : No renal angle tenderness. No suprapubic tenderness. Extremities: No edema, Capillary Refill Less than 3 Seconds Skin: No rashes, No breakdown Musculoskeletal: No Tenderness to Palpation of Joints or Extremities Neurological: Cranial nerves II-XII grossly intact, Deep Tendon Reflexes 2+/4 and Symmetrical, Neuro grossly intact Psych/Mental Status: Normal Affect, Appropriate. - Physical Exam Vitals/I&O's: Vital Signs Temp Pulse Resp BP Pulse Ox 97.8 F 62 15 135/81 H 93 04/26/20 12:01 04/26/20 12:46 04/26/20 12:01 04/26/20 12:46 04/26/20 12:01 Oxygen Flow Rate (L/min) 2 Oxygen Delivery Method Room Air Weight: 193 lb 9.054 oz Body Mass Index (BMI) 36.6 Orthostatic Vital Signs Start: 04/26/20 12:46 Freq: q24h Status: Active Protocol: Activity Type Activity Date Activity User E-Sign Co-Sign Detail Recorded Client Recorded Date Recorded By Document 04/26/20 12:46 DS [id number] 04/26/20 12:51 DS 04/26/20 12:46 Orthostatic Vitals Standing -Blood Pressure (90/60-120/80) 156/101 H -Extremity Use Right Arm -Pulse Rate (60-100) 67 Sitting -Blood Pressure (90/60-120/80) 152/86 H -Extremity Use Right Arm -Pulse Rate (60-100) 60 Lying -Blood Pressure (90/60-120/80) 135/81 H -Extremity Use Right Arm -Pulse Rate (60-100) 62 Intake and Output for Last 24 Hours 04/24/20 04/25/20 04/26/20 23:59 23:59 23:59 Intake Total 1000 / 1000 640 / 640 Balance 1000 / 1000 640 / 640 Laboratory Results 04/25/20 20:25: WBC 6.8, RBC 6.15 H, Hgb 15.9 H, Hct 49.8 H, MCV 81.0, MCH 25.9 L, MCHC 31.9 L, RDW Std Deviation 50.2 H, RDW Coeff of Love 18.4 H, Plt Count 303, MPV 10.2, Immature Gran % (Auto) 0.300, Neut % (Auto) 64.2, Lymph % (Auto) 25.2, Whitley % (Auto) 6.6, Eos % (Auto) 1.2, Baso % (Auto) 2.5 H, Absolute Neuts (auto) 4.4, Absolute Lymphs (auto) 1.72, Nucleated RBC % 0 04/25/20 20:25: Sodium 142, Potassium 3.1 L, Chloride 109 H, Carbon Dioxide 28.0, Anion Gap 5, BUN 17, Creatinine 0.96, Estim Creat Clear Calc 50.55, Est GFR (MDRD) Af Amer 78, Est GFR (MDRD) Non-Af 64, BUN/Creatinine Ratio 17.7, Glucose 130 H, Calcium 9.1, Troponin I < 0.015 04/25/20 20:25: Magnesium 1.9 04/25/20 20:25: Triglycerides 331 H, Cholesterol 216 H, LDL Cholesterol 100, VLDL Cholesterol 66 H, HDL Cholesterol 50, TSH 3.55, Free T4 0.99 04/26/20 01:25: Troponin I < 0.015 04/26/20 05:12: WBC 5.8, RBC 5.42 H, Hgb 13.7, Hct 44.0, MCV 81.2, MCH 25.3 L, MCHC 31.1 L, RDW Std Deviation 51.5 H, RDW Coeff of Love 17.4 H, Plt Count 257, MPV 10.3, Immature Gran % (Auto) 0.300, Neut % (Auto) 51.9, Lymph % (Auto) 36.5, Whitley % (Auto) 6.4, Eos % (Auto) 2.1, Baso % (Auto) 2.8 H, Absolute Neuts (auto) 3.0, Absolute Lymphs (auto) 2.11, Nucleated RBC % 0 04/26/20 05:12: Sodium 145, Potassium 3.5, Chloride 115 H, Carbon Dioxide 25.0, Anion Gap 5, BUN 16, Creatinine 0.78, Estim Creat Clear Calc 62.22, Est GFR (MDRD) Af Amer 99, Est GFR (MDRD) Non-Af 82, BUN/Creatinine Ratio 20.6 H, Glucose 103, Calcium 8.5, Total Bilirubin 0.30, AST 11 L, ALT 21, Alkaline Phosphatase 53, Total Protein 5.4 L, Albumin 2.9 L, Globulin 2.5, Albumin/Globulin Ratio 1.2 04/26/20 05:12: Troponin I < 0.015 Current Medications Acetaminophen (Acetaminophen 325 Mg Tablet) 650 mg PO Q6H PRN PRN PRN Reason: Pain Score 1-10/Temp > 100.7 F Al Hydroxide/Mg Hydroxide (Mag Hydrox/Al Hydrox/Simeth 30 Ml Udc) 30 ml PO Q6H PRN PRN PRN Reason: Gastric Burning Last Admin: 04/25/20 23:42 Dose: 30 ml Documented by: Albuterol Sulfate (Albuterol 2.5 Mg/3 Ml Vial.Neb.) 2.5 mg INHALATION Q2H PRN PRN PRN Reason: Dyspnea, wheezing Buspirone HCl (Buspirone 15 Mg Tablet) 15 mg PO BID [facility] Last Admin: 04/26/20 09:42 Dose: 15 mg Documented by: Duloxetine HCl (Duloxetine Hcl 60 Mg Capsule) 60 mg PO DAILY [facility] Last Admin: 04/26/20 09:44 Dose: 60 mg Documented by: Enoxaparin Sodium (Enoxaparin 40 Mg/0.4 Ml Syringe) 40 mg SC DAILY [facility] Last Admin: 04/26/20 09:42 Dose: 40 mg Documented by: Gabapentin (Gabapentin 300 Mg Capsule) 300 mg PO QHS PRN PRN PRN Reason: Pain/Inflammation Last Admin: 04/25/20 23:41 Dose: 300 mg Documented by: Guaifenesin (Guaifenesin 10 Ml Udc (200mg/10ml)) 20 ml PO Q4H PRN PRN PRN Reason: COUGH Hydralazine HCl (Hydralazine 20 Mg/Ml Vial) 10 mg IV Q4H PRN PRN PRN Reason: SBP > 160 Loratadine (Loratadine 10 Mg Tablet) 10 mg PO DAILY [facility] Last Admin: 04/26/20 09:42 Dose: 10 mg Documented by: Losartan Potassium (Losartan Potassium 50 Mg Tablet) 50 mg PO DAILY [facility] Last Admin: 04/25/20 23:36 Dose: 50 mg Documented by: Magnesium Hydroxide (Magnesium Hydroxide 30 Ml Udc) 30 ml PO DAILY PRN PRN PRN Reason: Constipation Meloxicam (Meloxicam 7.5 Mg Tablet) 7.5 mg PO QHS [facility] Last Admin: 04/25/20 23:38 Dose: 7.5 mg Documented by: Metoprolol Tartrate (Metoprolol Tartrate 25 Mg Tablet) 25 mg PO BID [facility] Last Admin: 04/26/20 09:42 Dose: 25 mg Documented by: Nitroglycerin (Nitroglycerin (Inpatient Use) 0.4 Mg Tab.Subl) 0.4 mg SUBLINGUAL Q5M PRN PRN Reason: CARDIAC/CHEST PAIN Ondansetron HCl (Ondansetron 4 Mg/2 Ml Vial) 4 mg IV Q8H PRN PRN PRN Reason: NAUSEA/VOMITING Prochlorperazine Edisylate (Prochlorperazine 10 Mg/2 Ml Vial) 5 mg IV Q4H PRN PRN PRN Reason: Breakthrough Nausea/Vomiting Psyllium Hydrophilic Mucilloid (Psyllium 1 Packet) 1 packet PO DAILY PRN PRN PRN Reason: Constipation Senna/Docusate Sodium (Senna/Docusate Sodium 1 Tablet) 2 tablet PO BID PRN PRN PRN Reason: Constipation Sodium Chloride (0.9% Saline Lock 10 Ml Syringe) 10 - 40 ml IV UD PRN PRN Reason: SALINE FLUSH Temazepam (Temazepam 15 Mg Capsule) 15 mg PO QHS PRN PRN PRN Reason: INSOMNIA Throat Lozenges (Benzocaine/Menthol 1 Lozenge) 1 lozenge MUCOUS MEM Q2H PRN PRN PRN Reason: SORE THROAT Assessment/Plan This patient was seen in conjunction with INVESTIGATION MANAGERDora. I have independently interviewed and examined the patient and reviewed pertinent history, examination findings, laboratory and plan of management. I have reviewed the note and agree with the documented findings with the few additional points. In brief, patient is 55-year-old female was admitted with near syncope on cardiac telemetry. She did not pass out. Patient found to have nonsustained V. tach. Serial troponin enzymes are negative. Mild hypokalemia, potassium corrected. Magnesium 1.9. Fasting profile TG 1031, TC 216, LDL 100 and HDL 50. TSH and free T4 are in normal range. 2D echo is ordered. Cardiac cath on Tuesday. Keep potassium above 4 and magnesium more than 1.8. Other comorbidities include hypertension, dyslipidemia, seizure disorder secondary to traumatic brain injury with hemorrhagic stroke in 2008. Obstructive sleep apnea does not wear CPAP. I have discussed my assessment with Dora MIKE and orders have been reviewed. Inpatient E&M: 58891 Subs Hosp L2
[2020-04-26] MEDS: hydrALAZINE 20 MG/ML Vial 10 MG IV (17:59)
[2020-04-26] MEDS: 0.9% Saline Lock 10 ML Syringe IV (18:00)
--- NOTE | 2020-04-26 21:06 | PCM.DC.SUM ---
Discharge Date and Diagnosis - Problem List Patient Problems: Active and Suspected Problems (Last Updated 09/27/18 @ 13:21 by Kavitha Zhang) Non-sustained ventricular tachycardia (Acute) Hypokalemia (Acute) Near syncope (Acute) Date of Admission: 04/25/20 Date of Discharge: 04/26/20 - Primary Discharge Diagnosis Acute Problems: Active Problems (Last Updated 09/27/18 @ 13:21 by Kavitha Zhang) 1. Near syncopal event likely secondary to nonsustained SVT 2. Hypokalemia, likely secondary to HCTZ regimen 3. Chronic anemia, unclear type 4. Anxiety and depression 5. Hypertension 6. 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 History of Uterine cancer, Remission, s/p radical hysterectomy 8. Obesity 9. CLARKE, non-complaint with CPAP - Secondary Discharge Diagnosis Chronic Problems: Chronic Problems Chronic anemia (Chronic) Anxiety and depression (Chronic) Hypertension (Chronic) History of hemorrhagic cerebrovascular accident (CVA) without residual deficits (Chronic) Seizure disorder as sequela of cerebrovascular accident (Chronic) History of uterine cancer (Chronic) Obesity (BMI 30-39.9) (Chronic) CLARKE (obstructive sleep apnea) (Chronic) Former tobacco use (Chronic) Hospital Course and Treatment Cardiology consulted Rogelio Lopez Operations: None Procedures: 2-D Echocardiogram, EKG Summary of Care Provided: The patient is a 55 y/o F w/ PMHx: Chronic anemia, Obesity, Seizure disorder, HTN, Hx endometrial CA, OA, Hx CVA, Anxiety and Depression who presented to the [facility] ED on 04/25/20 with history of onset near syncopal sensation while at dinner at [employer] in [place], noted sudden in nature with lightheadedness/dizziness (no spinning), noted she was very pale with nausea without emesis which resolved initially in < 1 minute however upon attempted return to home she had 2 similar episodes which lasted less long prompting eventual ED presentation. Patient denied any chest discomfort, palpitations, dyspnea with these episodes. Work-up in the ED included T 97.6, heart rate 91, BP 150/87 with not marked appearing orthostatic vital signs, respiratory rate 16, 92% on room air, CBC with WBC 6.8, hemoglobin 15.9, platelet 303 with no significant left shift, BMP with potassium 3.1, chloride 109, glucose 130, troponin less than 0.015, chest x-ray with no acute cardiopulmonary findings with evidence hiatal hernia, EKG with sinus rhythm with PACs however on monitor patient with couple episodes per ED physician of nonsustained ventricular tachycardia noted to be approximately 10 beats each. ED physician discussed case with patient pomologist, Dr. Lopez. In the ED patient ministered normal saline, potassium 40 mill equivalent p.o. x1. The patient was admitted to the PCU, placed on a monitored bed with serial cardiac enzymes which remained < 0.015 x 3 and EKGs which remained unremarkable, continued planned administration of supplemental potassium, normal magnesium level requested. TSH normal level. She had no further events on telemetry. ECHO was obtained 04/26/19 with normal LV size, normal LV systolic function, EF 65%, stage I diastolic dysfunction, mild mitral valve prolapse, mild tricuspid valve insufficiency. Patient was initiated on metoprolol therapy additionally. Patient evaluated 04/26/2020 per cardiology who reviewed echocardiogram, labs and following evaluation recommended plan for cardiac catheterization to be performed on 04/28/2020 with continued electrolyte replacement, discontinuation of home hydrochlorothiazide regimen and transition to JAJA inhibitor if necessary. 04/26/2020 evening patient and family insistent she be transferred to [facility]. Rapid covid ag negative. Transfer was arranged to [facility] per their preference. They were made aware that the care plan per Cardiology at [facility] may be different than at [facility], including potentially deferral of cardiac catheterization. Patient Problems: Active and Suspected Problems (Last Updated 09/27/18 @ 13:21 by Kavitha Zhang) Non-sustained ventricular tachycardia (Acute) Hypokalemia (Acute) Near syncope (Acute) - Physical Exam Vitals/I&O's: Vital Signs Temp Pulse Resp BP Pulse Ox 98.1 F 83 17 145/100 H 94 04/26/20 20:21 04/26/20 20:21 04/26/20 20:21 04/26/20 20:21 04/26/20 20:21 Oxygen Flow Rate (L/min) 2 Oxygen Delivery Method Room Air Weight: 193 lb 9.054 oz Body Mass Index (BMI) 36.6 Orthostatic Vital Signs Start: 04/26/20 12:46 Freq: q24h Status: Active Protocol: Activity Type Activity Date Activity User E-Sign Co-Sign Detail Recorded Client Recorded Date Recorded By Document 04/26/20 12:46 DS [id number] 04/26/20 12:51 DS 04/26/20 12:46 Orthostatic Vitals Standing -Blood Pressure (90/60-120/80 mm Hg) 156/101 H -Extremity Use Right Arm -Pulse Rate (60-100 beats/min) 67 Sitting -Blood Pressure (90/60-120/80 mm Hg) 152/86 H -Extremity Use Right Arm -Pulse Rate (60-100 beats/min) 60 Lying -Blood Pressure (90/60-120/80 mm Hg) 135/81 H -Extremity Use Right Arm -Pulse Rate (60-100 beats/min) 62 Intake and Output for Last 24 Hours 04/24/20 04/25/20 04/26/20 23:59 23:59 23:59 Intake Total 1000 / 1000 1160 / 1160 Balance 1000 / 1000 1160 / 1160 Laboratory Results 04/25/20 20:25: Magnesium 1.9 04/25/20 20:25: Triglycerides 331 H, Cholesterol 216 H, LDL Cholesterol 100, VLDL Cholesterol 66 H, HDL Cholesterol 50, TSH 3.55, Free T4 0.99 04/26/20 01:25: Troponin I < 0.015 04/26/20 05:12: WBC 5.8, RBC 5.42 H, Hgb 13.7, Hct 44.0, MCV 81.2, MCH 25.3 L, MCHC 31.1 L, RDW Std Deviation 51.5 H, RDW Coeff of Love 17.4 H, Plt Count 257, MPV 10.3, Immature Gran % (Auto) 0.300, Neut % (Auto) 51.9, Lymph % (Auto) 36.5, Bollinger % (Auto) 6.4, Eos % (Auto) 2.1, Baso % (Auto) 2.8 H, Absolute Neuts (auto) 3.0, Absolute Lymphs (auto) 2.11, Nucleated RBC % 0 04/26/20 05:12: Sodium 145, Potassium 3.5, Chloride 115 H, Carbon Dioxide 25.0, Anion Gap 5, BUN 16, Creatinine 0.78, Estim Creat Clear Calc 62.22, Est GFR (MDRD) Af Amer 99, Est GFR (MDRD) Non-Af 82, BUN/Creatinine Ratio 20.6 H, Glucose 103, Calcium 8.5, Total Bilirubin 0.30, AST 11 L, ALT 21, Alkaline Phosphatase 53, Total Protein 5.4 L, Albumin 2.9 L, Globulin 2.5, Albumin/Globulin Ratio 1.2 04/26/20 05:12: Troponin I < 0.015 Current Medications Acetaminophen (Acetaminophen 325 Mg Tablet) 650 mg PO Q6H PRN PRN PRN Reason: Pain Score 1-10/Temp > 100.7 F Al Hydroxide/Mg Hydroxide (Mag Hydrox/Al Hydrox/Simeth 30 Ml Udc) 30 ml PO Q6H PRN PRN PRN Reason: Gastric Burning Last Admin: 04/25/20 23:42 Dose: 30 ml Documented by: Albuterol Sulfate (Albuterol 2.5 Mg/3 Ml Vial.Neb.) 2.5 mg INHALATION Q2H PRN PRN PRN Reason: Dyspnea, wheezing Buspirone HCl (Buspirone 15 Mg Tablet) 15 mg PO BID [facility] Last Admin: 04/26/20 20:23 Dose: 15 mg Documented by: Duloxetine HCl (Duloxetine Hcl 60 Mg Capsule) 60 mg PO DAILY [facility] Last Admin: 04/26/20 09:44 Dose: 60 mg Documented by: Enoxaparin Sodium (Enoxaparin 40 Mg/0.4 Ml Syringe) 40 mg SC DAILY [facility] Last Admin: 04/26/20 09:42 Dose: 40 mg Documented by: Gabapentin (Gabapentin 300 Mg Capsule) 300 mg PO QHS PRN PRN PRN Reason: Pain/Inflammation Last Admin: 04/25/20 23:41 Dose: 300 mg Documented by: Guaifenesin (Guaifenesin 10 Ml Udc (200mg/10ml)) 20 ml PO Q4H PRN PRN PRN Reason: COUGH Hydralazine HCl (Hydralazine 20 Mg/Ml Vial) 10 mg IV Q4H PRN PRN PRN Reason: SBP > 160 Last Admin: 04/26/20 17:59 Dose: 10 mg Documented by: Loratadine (Loratadine 10 Mg Tablet) 10 mg PO DAILY [facility] Last Admin: 04/26/20 09:42 Dose: 10 mg Documented by: Losartan Potassium (Losartan Potassium 50 Mg Tablet) 50 mg PO DAILY [facility] Last Admin: 04/25/20 23:36 Dose: 50 mg Documented by: Magnesium Hydroxide (Magnesium Hydroxide 30 Ml Udc) 30 ml PO DAILY PRN PRN PRN Reason: Constipation Meloxicam (Meloxicam 7.5 Mg Tablet) 7.5 mg PO QHS [facility] Last Admin: 04/25/20 23:38 Dose: 7.5 mg Documented by: Metoprolol Tartrate (Metoprolol Tartrate 25 Mg Tablet) 25 mg PO BID [facility] Last Admin: 04/26/20 09:42 Dose: 25 mg Documented by: Nitroglycerin (Nitroglycerin (Inpatient Use) 0.4 Mg Tab.Subl) 0.4 mg SUBLINGUAL Q5M PRN PRN Reason: CARDIAC/CHEST PAIN Ondansetron HCl (Ondansetron 4 Mg/2 Ml Vial) 4 mg IV Q8H PRN PRN PRN Reason: NAUSEA/VOMITING Prochlorperazine Edisylate (Prochlorperazine 10 Mg/2 Ml Vial) 5 mg IV Q4H PRN PRN PRN Reason: Breakthrough Nausea/Vomiting Psyllium Hydrophilic Mucilloid (Psyllium 1 Packet) 1 packet PO DAILY PRN PRN PRN Reason: Constipation Senna/Docusate Sodium (Senna/Docusate Sodium 1 Tablet) 2 tablet PO BID PRN PRN PRN Reason: Constipation Sodium Chloride (0.9% Saline Lock 10 Ml Syringe) 10 - 40 ml IV UD PRN PRN Reason: SALINE FLUSH Last Admin: 04/26/20 18:00 Dose: 20 ml Documented by: Temazepam (Temazepam 15 Mg Capsule) 15 mg PO QHS PRN PRN PRN Reason: INSOMNIA Throat Lozenges (Benzocaine/Menthol 1 Lozenge) 1 lozenge MUCOUS MEM Q2H PRN PRN PRN Reason: SORE THROAT Home Medications: Medications to take at Discharge buspirone 10 mg tablet 15 mg PO BID 06/30/17 gabapentin 300 mg capsule 300 mg PO QHS PRN 06/30/17 Hydrochlorothiazide 1 tab PO DAILY 06/26/18 Duloxetine Hcl [Cymbalta] 60 mg PO DAILY 04/25/20 Loratadine 10 mg PO DAILY 04/25/20 Losartan Potassium [Cozaar] 50 mg PO DAILY 04/25/20 Meloxicam 7.5 mg PO QHS 04/25/20 Primary Care Physician: Anibal Oliva III, MD [Primary Care Provider] - Disposition: Acute care Hospital Minutes spent on discharge:: 35 Patient Condition:: Fair Medical Necessity - Tobacco Use Smoking Status: Former smoker - Patient quit cigarette tobacco usage approximately 25 years prior to current presentation with prior to this 1 pack/day since approximately age 19. Tobacco Use: Non-smoker Meaningful Use Info Meaningful Use Diagnoses (Choose all that apply): None applicable OBSV E&M: 33774 Observation care discharge
[2020-04-26] MEDS: Gabapentin 300 MG Capsule PO (21:43)
[2020-04-26] MEDS: Losartan Potassium 50 MG Tablet PO (21:44)
[2020-04-26] MEDS: Meloxicam 7.5 MG Tablet PO (21:44)
== END 2020-04-26 23:26 | disposition short-term general hospital (02) ==
LOC: ED 21:23 → PCU 22:43
PROVIDERS: Admitting Provider Family Medicine; Emergency Provider Emergency Medicine; PCP Family Medicine; Visit Provider Internal Medicine
DX: R55 Syncope and collapse (principal); I47.2 Ventricular tachycardia; E87.6 Hypokalemia; F41.9 Anxiety disorder, unspecified; F32.9 Major depressive disorder, single episode, unspecified; I10 Essential (primary) hypertension; I69.398 Other sequelae of cerebral infarction; E66.9 Obesity, unspecified; G40.509 Epileptic seizures related to external causes, not intractable, without status epilepticus; E78.5 Hyperlipidemia, unspecified; G47.33 Obstructive sleep apnea (adult) (pediatric); M19.90 Unspecified osteoarthritis, unspecified site; Z68.34 Body mass index [BMI] 34.0-34.9, adult; Z79.899 Other long term (current) drug therapy; Z87.891 Personal history of nicotine dependence
CPT/HCPCS: 36415; 71045; 80048; 80053; 80061; 83735; 84439; 84443; 84484; 85025; 87426; 93005; 93306; 96361; 96372; 96374; 99218; 99251; 99285; J7030; Q9957; A4216; G0378; G0463

== ENCOUNTER 2020-05-26 14:36 | Emergency (ER) | payer OTHER, SELFPAY ==
[2020-04-25 23:01] VITALS: BMI 36.6
[2020-05-26 14:37] VITALS: BP 180/115; PULSE 92; RESP 18; TEMP 36.1; O2SAT 97; BMI 36.8
--- NOTE | 2020-05-26 15:16 | CT_ITS ---
STUDY: CT BRAIN WITHOUT CONTRAST REASON FOR EXAM: Female, 55 years old. CONFUSION TODAY, DISORIENTED, ?UTI, HX-HTN, SZ, UTERINE CA RADIATION DOSAGE (If Supplied By Facility): CTDIvol = ( 44.99 ) mGy, DLP = ( 745.49 ) mGycm TECHNIQUE: Transaxial CT imaging of the brain was performed without administration of intravenous contrast material. Individualized dose optimization techniques were used for this CT. COMPARISON: 01/18/2016 FINDINGS: Normal soft tissue structures. Normal calvarium. Normal size ventricles and extra-axial spaces for the patient''s age. Normal white matter tracts of the cerebral hemispheres. Normal basal ganglia and thalami. Normal brainstem. Normal cerebellum. Focal encephalomalacia in the superior left parietal lobe at the site of prior hemorrhage. There is no intracranial hemorrhage. There are no findings of an acute ischemic infarction. Normal visualized paranasal sinuses. CT/Brain/Head without Contrast IMPRESSION: No acute abnormality. Electronically Signed: Charlie Alejandro MD at 16:31 EST Tel , Service support ,
--- NOTE | 2020-05-26 16:06 | ED.VISSUMM ---
- ER Visit Summary Date of Service: 05/26/20 Chief Complaint: Confusion History of Present Illness: The patient is a 55 F who presents with confusion episode that occurred today. Patient states she got out of her bathtub today and went to get her medicines to take later in the day. Patient states that she then became confused as to what medicine she should grab. Patient states she knew where she was at but did not know what she should do with her medications. Patient states this episode lasted approximately 15 minutes and then she started to feel better. Patient states she has been having thick urine. Patient states she feels like there is some mucus in her urine. Patient states she does self cath for urine and has been noticing some burning with catheterization. Patient is concerned over possible urinary tract infection. Physical Examination: Vital signs are stable. Patient is afebrile. Patient is in no acute distress. Patient is texting on her phone as I walked into the room. Neck is supple. Trachea is midline. There is no JVD. Heart was regular rate and rhythm. Lungs are clear and equal bilateral. Abdomen is soft. Bowel sounds are normal. There is no tenderness. Cranial nerves II through XII are intact. There are no focal motor or sensory deficits. Extremities are intact. There is no calf tenderness or edema. Test Results: CBC was within normal limits. Comprehensive metabolic profile was within normal limits. Urinalysis shows leukocyte esterase of 25 with positive nitrates, 2+ bacteria, and 5-[address] scan of the brain was obtained. There is no acute intracranial abnormality. Emergency Department Course and Treatment: Patient was given a dose of Keflex here. Patient was given a prescription for Keflex. Patient states this has worked for her urinary tract infections in the past. Patient was instructed to follow-up with her primary care physician in 5 to 7 days. Patient understood and was agreeable with plan. All questions were answered. Disposition: Discharge home Impression: 1. Urinary tract infection 2. Confusion episode This note was generated with [employer] dictation software. It may contain incorrect words, spelling, and punctuation that were not noted in review of the chart prior to signing ED Disposition - Plan for ED Patient: Disposition: Home or Assisted Living Diagnosis: UTI (urinary tract infection), Episode of confusion Instructions: ED Bladder Infection, Female (Adult) Prescriptions: Cephalexin [Keflex] 500 mg PO Q6 #28 cap Transmission Status: Received by [facility]/pharmacy #[id number] Referrals: Anibal Oliva III, MD [Primary Care Provider] - 3-5 Days
[2020-05-26 16:08] LABS: Mucous, Urine 0 SEEN /hpf (<or=2+); Red Blood Cells-Urine 0 SEEN /hpf (0-5)
[2020-05-26 16:11] LABS: Color, Urine Yellow (Yellow); Glucose, Dipstick Normal (Normal); Ketone-Dipstick Negative (Negative); Leukocyte Esterase-Dipstick 25 /ul (Negative); Nitrite-Dipstick Positive (Negative); Occult Blood-Urine Negative /ul (Negative); Protein-Dipstick Negative (Negative); Specific Gravity, Urine 1.015 (1.002-1.030); Urine Bilirubin Dipstick Negative (Negative); Urine Clarity Clear (Clear); Urine Urobilinogen Normal (Normal)
[2020-05-26 16:18] LABS: Bacteria 2+ /hpf (None Seen); Squamous Epithelial Cells - UA 0-5 SEEN /hpf (5-10); White Blood Cells 5-10 SEEN /hpf (0-5)
[2020-05-26 16:23] VITALS: BP 188/103; PULSE 83; RESP 17; O2SAT 97
[2020-05-26 16:48] LABS: Absolute Lymphocyte Count 2.15 X10^3/uL (0.83-4.51); Absolute Neutrophil Count 4.1 X10^3/uL (2.0-7.7); Basophil# 0.18 X10^3/uL; Basophil% 2.5 % (0-1); Eosinophil# 0.07 X10^3/uL; Hematocrit 54.1 % (37-47); Hemoglobin 16.9 g/dL (12.0-15.0); Lymphocyte # 2.15 X10^3/ul (4.0); Lymphocyte % 30.2 % (19-41); Mean Corp Hgb Conc 31.2 g/dL (32-36); Mean Corpuscular Hgb 26.2 pg (27.0-32.0); Monocyte# 0.55 X10^3/uL; Monocyte% 7.7 % (0-10); NRBC Flagged by Analyzer 0 % (0-5); Neutrophil # 4.13 X10^3/uL (2.7-7.7); Neutrophil % 58.2 % (47-70); Platelet Count 269 K/mm3 (150-450); RBC Distribution Width CV 18.3 % (11.6-14.6); Red Blood Count 6.44 M/mm3 (4.2-5.4); White Blood Count 7.1 K/mm3 (4.4-11.0)
[2020-05-26 17:02] VITALS: BP 195/115; PULSE 82; RESP 16; O2SAT 96
[2020-05-26 17:05] LABS: ALB/GLOB Ratio 1.3 RATIO (0.9-2.4); AST(SGOT) 17 U/L (15-37); Alanine Aminotransfer ALT/SGPT 26 U/L (13-56); Albumin, Serum 3.5 g/dL (3.2-5.0); Alkaline Phosphatase 63 U/L (45-117); Anion Gap 10 (5-15); BUN 11 mg/dL (7-18); BUN/Creat Ratio 12.9 RATIO (10-20); Chloride 107 mmol/L (98-107); Creatinine, Serum 0.85 mg/dL (0.55-1.02); EST Glomerular Filtration Rate 74 mL/min (>60); Est Glom Filt Rate - Afr Amer 90 mL/min (>60); Estimated Creatinine Clearance 57.09 ml/min; Globulin 2.7 g/dL (2.2-4.2); Glucose 93 mg/dL (74-106); Protein, Total 6.2 g/dL (6.4-8.2); Sodium Level 142 mmol/L (136-145)
[2020-05-26 17:28] VITALS: BP 160/122; PULSE 89; RESP 18; O2SAT 96
[2020-05-26] MEDS: Cephalexin 250 MG Capsule 500 MG PO (17:29)
== END 2020-05-26 17:57 | disposition home or self-care (01) ==
PROVIDERS: Emergency Provider Emergency Medicine; PCP Family Medicine
DX: N39.0 Urinary tract infection, site not specified (principal); R41.0 Disorientation, unspecified; I10 Essential (primary) hypertension; Z85.42 Personal history of malignant neoplasm of other parts of uterus; Z87.440 Personal history of urinary (tract) infections
CPT/HCPCS: 70450; 80053; 81001; 85025; 99284; A4216

== ENCOUNTER 2020-06-15 16:56 | Emergency (ER) | payer OTHER, SELFPAY ==
[2020-06-15] VITALS (11 sets, daily range): BP systolic 98–138; BP diastolic 66–104; PULSE 71–190; RESP 12–22; TEMP 35.1–36.2; O2SAT 93–98; BMI 36.8
--- NOTE | 2020-06-15 17:02 | EKG12_ITS ---
Test Reason : V-TACH Blood Pressure : / mmHG Vent. Rate : 186 BPM Atrial Rate : 182 BPM P-R Int : 000 ms QRS Dur : 114 ms QT Int : 260 ms P-R-T Axes : 000 264 080 degrees QTc Int : 457 ms AGE AND GENDER SPECIFIC ECG ANALYSIS Supraventricular tachycardia Wide QRS tachycardia Confirmed by FALLON GOODWIN, HUGO ([id number]), senior technical editor СЕРГЕЙ VALDERRAMA ([id number]) on 06/17/2020 11:35:23 AM Referred By: RO Confirmed By:HUGO LEHMAN MD
[2020-06-15] MEDS: Adenosine 6 MG/2 ML Syringe IV (17:21)
[2020-06-15] MEDS: Adenosine 6 MG/2 ML Syringe 12 MG IV (17:22)
[2020-06-15] MEDS: Etomidate 20 MG/10 ML Vial 8 MG IV (17:25)
--- NOTE | 2020-06-15 17:30 | EKG12_ITS ---
Test Reason : V-TACH Blood Pressure : / mmHG Vent. Rate : 057 BPM Atrial Rate : 057 BPM P-R Int : 150 ms QRS Dur : 078 ms QT Int : 436 ms P-R-T Axes : 056 -19 056 degrees QTc Int : 424 ms Sinus bradycardia Nonspecific ST and T wave abnormality Abnormal ECG Confirmed by FALLON GOODWIN, HUGO ([id number]), newspaper editor managing СЕРГЕЙ VALDERRAMA ([id number]) on 06/17/2020 11:36:00 AM Referred By: RO Confirmed By:HUGO LEHMAN MD
[2020-06-15] MEDS: Metoprolol Tartrate 5 MG/5 ML Vial IV (17:37)
[2020-06-15] MEDS: Amiodarone 360 MG in Dextrose 5% Viaflo Bag 192.8 ML 33.3 MG CONT INF (18:02)
[2020-06-15 18:04] LABS: Absolute Lymphocyte Count 2.52 X10^3/uL (0.83-4.51); Basophil# 0.15 X10^3/uL; Basophil% 1.4 % (0-1); Eosinophil# 0.07 X10^3/uL; Eosinophils% 0.7 % (0-5); Hematocrit 52.2 % (37-47); Hemoglobin 16.9 g/dL (12.0-15.0); Lymphocyte # 2.52 X10^3/ul (4.0); Lymphocyte % 23.8 % (19-41); Mean Corp Hgb Conc 32.4 g/dL (32-36); Mean Corpuscular Hgb 26.7 pg (27.0-32.0); Mean Corpuscular Volume 82.5 fL (81-99); Mean Platelet Vol. 10.5 fl (6.2-12.0); Monocyte# 0.76 X10^3/uL; Monocyte% 7.2 % (0-10); NRBC Flagged by Analyzer 0 % (0-5); Neutrophil # 7.02 X10^3/uL (2.7-7.7); Neutrophil % 66.4 % (47-70); Platelet Count 325 K/mm3 (150-450); RBC Distribution Width CV 16.7 % (11.6-14.6); RBC Distribution Width SD 48.6 fl (35.1-43.9); Red Blood Count 6.33 M/mm3 (4.2-5.4); White Blood Count 10.6 K/mm3 (4.4-11.0)
[2020-06-15] MEDS: Ondansetron 4 MG/2 ML Vial IV (18:12)
--- NOTE | 2020-06-15 18:15 | EKG12_ITS ---
Test Reason : V-TACH Blood Pressure : / mmHG Vent. Rate : 191 BPM Atrial Rate : 193 BPM P-R Int : 000 ms QRS Dur : 108 ms QT Int : 252 ms P-R-T Axes : 000 266 084 degrees QTc Int : 449 ms AGE AND GENDER SPECIFIC ECG ANALYSIS Wide QRS tachycardia Inferior-posterior infarct , possibly acute Confirmed by FALLON GOODWIN, HUGO ([id number]), technical editor СЕРГЕЙ VALDERRAMA ([id number]) on 06/17/2020 11:36:33 AM Referred By: RO Confirmed By:HUGO LEHMAN MD
[2020-06-15 18:22] LABS: ALB/GLOB Ratio 1.2 RATIO (0.9-2.4); AST(SGOT) 12 U/L (15-37); Alanine Aminotransfer ALT/SGPT 20 U/L (13-56); Albumin, Serum 3.5 g/dL (3.2-5.0); Alkaline Phosphatase 60 U/L (45-117); Anion Gap 10 (5-15); BUN 14 mg/dL (7-18); BUN/Creat Ratio 13.7 RATIO (10-20); Calcium,Total 8.7 mg/dL (8.5-10.1); Chloride 110 mmol/L (98-107); Creatinine, Serum 1.02 mg/dL (0.55-1.02); EST Glomerular Filtration Rate 60 mL/min (>60); Est Glom Filt Rate - Afr Amer 73 mL/min (>60); Estimated Creatinine Clearance 47.58 ml/min; Globulin 2.9 g/dL (2.2-4.2); Glucose 144 mg/dL (74-106); Potassium 3.3 mmol/L (3.5-5.1); Protein, Total 6.4 g/dL (6.4-8.2); Sodium Level 143 mmol/L (136-145)
--- NOTE | 2020-06-15 18:29 | ED.DCSUM_ITS ---
History of Present Illness Chief Complaint: Chest Pain Detail of Chief Complaint: Discomfort, near syncope and palpitations 15 to 30 minutes prior to present Informant: Patient Onset: Hours Context: Sudden Onset Timing: Continuous Quality: Palpitations and chest discomfort Location: Midsternal Current Severity: Mild Maximum Severity: Moderate Worsened by: Standing Relieved by: Nothing Associated Symptoms: Nausea and near syncope Narrative: Patient is a 55-year-old woman who was seen beginning of April. Patient had a wide-complex tachycardia that was felt to be supraventricular in origin. Patient's hydrochlorothiazide was discontinued. She is presently on Coreg and losartan. She states she is compliant with her medication. She was seen by grinder set up operator centerless at [facility]. She wore a 30-day Holter monitor. No abnormality noted. Patient states her heart began to beat quickly developed chest discomfort with near syncope and nausea. She states she was slightly sweaty. She denies headache, visual, ocular auditory symptoms. She denies trouble with speech or swallowing. She states she had something to eat and drink 1 hour prior to presentation. She denies black or maroon stool. She denies urologic symptoms. She denies focal neurologic symptoms. Prior similar symptoms: Yes Recent Illness/Hospitalization: Yes - Past Medical History (1) SBO (small bowel obstruction) Status: Acute (2) Anxiety and depression Status: Chronic (3) Chronic anemia Status: Chronic (4) Former tobacco use Status: Chronic (5) History of hemorrhagic cerebrovascular accident (CVA) without residual deficits Status: Chronic (6) History of uterine cancer Status: Chronic (7) Hypertension Status: Chronic (8) CLARKE (obstructive sleep apnea) Status: Chronic (9) Obesity (BMI 30-39.9) Status: Chronic (10) Seizure disorder as sequela of cerebrovascular accident Status: Chronic Past Medical History - Allergies and Home Meds Allergies/Adverse Reactions: Allergies Penicillins [PCN] Allergy (Verified 05/26/20 14:36) Swelling erythromycin base [Erythromycin Base] Adverse Reaction (Verified 05/26/20 14:36) Upset Stomach sulfamethoxazole [From Bactrim] Adverse Reaction (Verified 05/26/20 14:36) Upset Stomach trimethoprim [From Bactrim] Adverse Reaction (Verified 05/26/20 14:36) Upset Stomach MACROBID Allergy (Mild, Uncoded 05/26/20 14:36Franky Marin Primary Care Physician: Anibal Oliva III, MD [Primary Care Provider] - Prior records reviewed: Yes Surgical History: noncontributory, - Lives: Spouse/ Significant Other Smoking Status: Former smoker Alcohol: Rare Drugs: None - Family History Maternal Family History: Reports: Hypertension Paternal Family History: Reports: High Cholesterol, Heart Disease, Hypertension Review of Systems General: Denies: Chills, Fever, Malaise ENT: Denies: Rhinorrhea, Sore throat Cardiovascular: Reports: Chest pain, Palpitations, Heart racing Respiratory: Reports: Dyspnea. Denies: Cough, Sputum, Dyspnea on exertion, Orthopnea, Paroxysmal nocturnal dyspnea Gastrointestinal: Reports: Nausea. Denies: Abdominal pain, Vomiting, Diarrhea, Melena, Hematochezia Genitourinary: Denies: Dysuria, Hematuria, Frequency Musculoskeletal: Denies: Myalgias, Arthralgias, Neck pain, Back pain, Swelling, Extremity Pain, -, - Skin: Denies: Rash, Wounds Neurological: Reports: Weakness. Denies: Headache, Parasthesia Endocrine: Denies: Polyuria, Polydipsia Hematologic: Reports: - - States she is on a baby aspirin a day. She is not on anticoagulant.. Denies: Easy bruising, Easy bleeding Physical Exam Vital Signs/Narrative: Vital Signs Temp Pulse Pulse Resp Resp BP BP 06/15/20 18:02 95.1 F L 163 H 12 102/66 06/15/20 17:53 190 H 190 H 22 H 20 H 98/85 H 98/85 H 06/15/20 17:51 169 H 18 116/77 06/15/20 17:25 186 H 15 138/93 H 06/15/20 17:17 186 H 20 H 123/104 H 06/15/20 17:05 97.2 F L 184 H 19 H 123/104 H Pulse Ox 06/15/20 18:02 95 06/15/20 17:53 96 06/15/20 17:51 93 06/15/20 17:25 96 06/15/20 17:17 06/15/20 17:05 98 Inital Vital Signs reviewed: Yes General: Well nourished, Well developed, Obese, Acute Distress Head: Normocephalic, Atraumatic Eyes: Perrl, EOMI. Negative for: Pale conjunctiva, Scleral icterus ENT: No rhinorrhea Neck: Supple, Nontender, No lymphadenopathy, No JVD Cardiovascular: Regular rhythm, No murmurs, Tachycardia Respiratory: No distress, CTA bilaterally, Chest nontender Abdomen: Soft, Nontender, Nondistended, Normal bowel sounds Rectal: Deferred Back: Nontender, Normal Inspection. Negative for: CVA tenderness Extremities: Nontender, No edema. Negative for: Tenderness, Edema Skin: No rash, Pallor. Negative for: Normal color, Cyanosis, Diaphoresis, Jaundice, No Trauma Psychological: Normal Mood Diagnostic/Tx/Re-eval - EKG Initial EKG Interpretation: SVT - Wide-complex supraventricular tachycardia with a heart rate of 185. ST T wave changes felt to be due to heart rate/demand. Follow-up EKG Interpretation: Sinus Bradycardia - Sinus bradycardia with a ventricular to 57. OR interval 150 ms. Cures duration 78 ms. QT duration 436 ms. [place] is normal. Computer is reading nonspecific ST-T wave changes which is artifact in the inferior leads. Similar to EKG obtained in April. - Medical Decision Making Patient presents with wide-complex tachycardia. Suspected a supraventricular tachycardia based on twelve-lead. I right IJ was placed by me. Site right was used. Attempted to put an Angiocath. Angiocath was not long enough. Using 7.5 Kenyan triple-lumen a 2- 1/2 inch Angiocath was placed in the right IJ. Blood was drawn. 6 mg of adenosine was administered with no effect. 12 mg of adenosine was administered with no effect. Since patient is hypotensive she received 8 mg of etomidate. Once patient was sedated attempt at cardioversion using 100 J and 200 J he converted her 5 and 3 seconds respectively. Once it was determined patient on beta-adilene she received 5 mg metoprolol. This did not have any effect on her heart rate. Spoke with the grinder set up operator centerless on- call Dr. Vega. He recommended amiodarone. Amiodarone was ordered. Patient did convert to a sinus bradycardia and appears similar to the EKG that was performed in April. Spoke with Dr. Benítez grinder set up operator centerless on-call at [facility]. He requested Dr. Mondragon involvement. I was informed by the transfer line that patient was not accepted. Patient requested [facility]. Spoke with the transfer nurse at [facility]. Spoke with the EP grinder set up operator centerless. He accepted patient. Patient will be a direct admit to the coronary care unit. - Critical Care Time Critical care time (excluding procedures): 30-74 minutes - Critical care time excluding procedures 37 minutes this included obtaining history, physical exam, documentation, bedside management of patient, obtaining medications from pharmacist, speaking with grinder set up operator centerless at outside facility and destination, [facility]., Discussing w/Patient &/or Family/Concrete Paving Supervisor, Discussing w/Consultants, Arranging Admission or Transfer Procedures Procedure(s): Consent was not obtained because of the critical nature of situation. Patient was informed what was going to be done and she acknowledged she understood. Patient received 8 mg of etomidate (4 cc) IV push through the right IJ. Once patient was sedated attempt at cardioversion using 100 J and 200 J. This was transiently effective. With use of ultrasound a 1/2 inch Angiocath was placed in the right IJ for IV access since there was none. Was done under sterile condition. Blood was aspirated from Angiocath. Port was used for administration of meds. ED Disposition - Plan for ED Patient: Disposition: [facility] Diagnosis: Wide-complex tachycardia, Acute hypotension, History of hypertension Referrals: Anibal Oliva III, MD [Primary Care Provider] -
--- NOTE | 2020-06-15 18:43 | ED.RN ---
aware of hard stick and asked if lactic acid was necessary. dr. macedo cancelled.
--- NOTE | 2020-06-15 19:25 | ED.RN ---
was unable to complete aldrette score due pt pt having decreased respirations, pt was being bag valve mask respirs with near intubation. pt awoke spontaneously and did not require intubation. pt continued to have svt with rate between 170 and 190 until after her amiodarone was started and pt converted back to sinus rhythm.
== END 2020-06-15 20:24 | disposition short-term general hospital (02) ==
PROVIDERS: Emergency Provider Emergency Medicine; PCP Family Medicine
DX: I47.1 Supraventricular tachycardia (principal); I10 Essential (primary) hypertension; I95.9 Hypotension, unspecified; E66.9 Obesity, unspecified; F32.9 Major depressive disorder, single episode, unspecified; F41.9 Anxiety disorder, unspecified; G47.33 Obstructive sleep apnea (adult) (pediatric); Z82.49 Family history of ischemic heart disease and other diseases of the circulatory system; Z83.49 Family history of other endocrine, nutritional and metabolic diseases; Z85.42 Personal history of malignant neoplasm of other parts of uterus; Z86.73 Personal history of transient ischemic attack (TIA), and cerebral infarction without residual deficits; Z87.891 Personal history of nicotine dependence; Z88.0 Allergy status to penicillin; Z88.1 Allergy status to other antibiotic agents; Z88.2 Allergy status to sulfonamides
CPT/HCPCS: 80053; 84484; 85025; 87426; 92960; 93005; 99285; J7030; A4216; C1751; J0153; J2405

== ENCOUNTER 2020-10-06 19:12 | Emergency (ER) | payer OTHER, SELFPAY ==
[2020-06-15 17:05] VITALS: BMI 36.8
[2020-10-06 19:13] VITALS: BP 208/114; PULSE 62; RESP 18; TEMP 36.7; O2SAT 97; BMI 35.9
--- NOTE | 2020-10-06 19:16 | EKG12_ITS ---
Test Reason : CP Blood Pressure : / mmHG Vent. Rate : 060 BPM Atrial Rate : 060 BPM P-R Int : 180 ms QRS Dur : 074 ms QT Int : 436 ms P-R-T Axes : 011 000 006 degrees QTc Int : 436 ms Atrial-paced rhythm Septal infarct , age undetermined Abnormal ECG Confirmed by FALLON GOODWIN, HUGO ([id number]), general expeditor СЕРГЕЙ VALDERRAMA ([id number]) on 10/09/2020 9:59:36 AM Referred By: MARLEE Confirmed By:HUGO LEHMAN MD
[2020-10-06 19:23] VITALS: PULSE 63; RESP 18; O2SAT 97
[2020-10-06 19:37] VITALS: O2SAT 97
[2020-10-06 19:50] LABS: Absolute Lymphocyte Count 2.22 X10^3/uL (0.83-4.51); Absolute Neutrophil Count 4.2 X10^3/uL (2.0-7.7); Basophil# 0.18 X10^3/uL; Basophil% 2.5 % (0-1); Eosinophil# 0.18 X10^3/uL; Eosinophils% 2.5 % (0-5); Hematocrit 51.5 % (37-47); Hemoglobin 16.2 g/dL (12.0-15.0); Lymphocyte # 2.22 X10^3/ul (0.83-4.51); Lymphocyte % 30.5 % (19-41); Mean Corp Hgb Conc 31.5 g/dL (32-36); Mean Corpuscular Volume 85.8 fL (81-99); Mean Platelet Vol. 10.6 fl (6.2-12.0); Monocyte# 0.46 X10^3/uL; Monocyte% 6.3 % (0-10); NRBC Flagged by Analyzer 0 % (0-5); Neutrophil % 57.8 % (47-70); Platelet Count 281 K/mm3 (150-450); RBC Distribution Width CV 14.5 % (11.6-14.6); RBC Distribution Width SD 45.5 fl (35.1-43.9); White Blood Count 7.3 K/mm3 (4.4-11.0)
[2020-10-06 20:06] LABS: Anion Gap 6 (5-15); BUN 21 mg/dL (7-18); BUN/Creat Ratio 19.4 RATIO (10-20); Calcium,Total 9.3 mg/dL (8.5-10.1); Chloride 104 mmol/L (98-107); Creatinine, Serum 1.08 mg/dL (0.55-1.02); EST Glomerular Filtration Rate 56 mL/min (>60); Est Glom Filt Rate - Afr Amer 68 mL/min (>60); Estimated Creatinine Clearance 44.94 ml/min; Glucose 89 mg/dL (74-106); Potassium 4.7 mmol/L (3.5-5.1); Sodium Level 137 mmol/L (136-145)
--- NOTE | 2020-10-06 20:07 | RAD_ITS ---
STUDY: X-RAY CHEST REASON FOR EXAM: Female, 55 years old. chest pain TECHNIQUE: Frontal portable view of the chest COMPARISON: 25 April 2020 FINDINGS: Pacemaker is present in the left upper chest with leads terminating in the right atrium and right ventricle. The lungs are clear and expanded. There is no demonstrated pleural abnormality. The heart is mildly enlarged. Normal mediastinum and johnnie. Normal visualized pulmonary arteries. Normal visualized aortic arch and descending thoracic aorta. There is hiatal hernia. Normal visualized thoracic spine. Normal visualized ribs, clavicles, and shoulders. There is no demonstrated abnormality of the visualized soft tissue structures of the upper abdomen. RAD/Chest 1 View (Portable) IMPRESSION: No acute findings. Mild cardiomegaly, no failure. Hiatal hernia. Electronically Signed: Pan Laurent MD at 20:26 EDT Tel , Service support ,
[2020-10-06 20:13] VITALS: BP 165/107; PULSE 64; RESP 16; O2SAT 96
[2020-10-06 21:32] VITALS: BP 138/98; PULSE 60; RESP 18; O2SAT 94
--- NOTE | 2020-10-06 21:38 | ED.VIS.CHEST ---
HPI History of Present Illness Chief Complaint: Chest Pain Narrative Narrative: Patient presenting for evaluation secondary chest pain. Patient states prior to arrival she was at work, and had a sudden onset of a chest pain. Patient states that it felt as if she had an electric shock in her chest that spontaneously resolved. It did not cause her to fall to the floor. She did not have any preceding chest pain or palpitations or shortness of breath or lightheadedness. Patient does have a history of cardiac arrhythmia with recent ablation and implantation of a defibrillator/pacer. Patient denies recent illnesses. She denies that she has had any discharges of her defibrillator prior to this. She has been dealing with high blood pressures that have been difficult to control, and she stated that following this chest pain episode she had blood pressures in the 200s systolics. No recent changes in her medications. Review of systems otherwise negative. [facility] Medical History Anemia Arthritis Endometrial cancer Hypertension ICD (implantable cardioverter-defibrillator) in place Right inguinal hernia Seizures Stroke Ventricular tachycardia Home Medications buspirone 10 mg tablet 15 mg PO TID PRN PRN 06/30/17 [History Last Taken 04/24/20 22:00] loratadine 10 mg PO DAILY 04/25/20 [History Last Taken 04/24/20 22:00] losartan 100 mg PO DAILY 04/25/20 [History Last Taken 04/24/20 22:00] meloxicam 15 mg PO QHS 04/25/20 [History Last Taken 04/24/20 22:00] potassium chloride 10 meq PO DAILY 05/26/20 [History Last Taken Unknown] carvedilol 6.25 mg PO BID 06/15/20 [History Last Taken Unknown] duloxetine 60 mg PO DAILY 06/15/20 [History Last Taken Unknown] gabapentin 300 mg PO QHS 10/06/20 [History Last Taken Unknown] magnesium oxide 400 mg PO DAILY 10/06/20 [History Last Taken Unknown] sotalol 120 mg PO BID 10/06/20 [History Last Taken Unknown] Allergy/AdvReac Type Severity Reaction Status Date / Time Penicillins [PCN] Allergy Swelling Verified 10/06/20 19:13 erythromycin base AdvReac Upset Verified 10/06/20 19:13 [Erythromycin Base] Stomach sulfamethoxazole AdvReac Upset Verified 10/06/20 19:13 [From Bactrim] Stomach trimethoprim [From Bactrim] AdvReac Upset Verified 10/06/20 19:13 Stomach MACROBID Allergy Mild Hives Uncoded 05/26/20 14:36 Surgical History H/O: hysterectomy (~2005) History of cholecystectomy s/p right inguinal hernia repair with mesh (~06/27/18) Status post club foot correction at Social History Smoking Status: Former smoker ROS ROS ED Constitutional Constitutional ED: Denies fever(s) Eyes Eyes: Denies change in vision ENT ENT ED: Denies rhinorrhea or sore throat Cardiovascular Cardiovascular: Reports as per HPI and chest pain Respiratory/Chest Respiratory/Chest: Denies cough, dyspnea or dyspnea on exertion Gastrointestinal Gastrointestinal: Denies abdominal pain, nausea or vomiting Genitourinary Genitourinary ED: Denies dysuria Musculoskeletal Musculoskeletal: Denies myalgias or neck pain Integumentary Denies rash Neurologic Neurologic: Denies headache(s), paresthesias or weakness Psychiatric Psychiatric: Denies depression Endocrine Endocrinology: Denies polydipsia or polyuria Hematologic/Lymphatic Hematologic/Lymphatic: Denies easy bleeding or easy bruising Allergic/Immunologic Allergic/Immunologic ED: Denies urticaria EXAM Physical Exam Const Vital Signs: 10/06/20 19:13 10/06/20 19:23 10/06/20 19:37 Temperature 98.1 F Temperature Source Temporal Pulse Rate 62 63 Respiratory Rate 18 18 Respiratory Effort Normal Respiratory Pattern Normal Blood Pressure 208/114 H Blood Pressure Mean 145 Pulse Ox 97 97 97 Oxygen Delivery Method Room Air Room Air Room Air 10/06/20 20:13 10/06/20 21:32 Temperature Temperature Source Pulse Rate 64 60 Respiratory Rate 16 18 Respiratory Effort Respiratory Pattern Blood Pressure 165/107 H 138/98 H Blood Pressure Mean 126 111 Pulse Ox 96 94 Oxygen Delivery Method Room Air Positive well nourished and well developed General Appearance ED: well developed and NAD HEENT Reports moist mucous membranes normocephalic and atraumatic Eyes EOMs intact bilaterally Neck no lymphadenopathy, supple and no JVD Chest Wall inspection of chest normal and palpation of chest normal Chest Narrative: No evidence of vesicular rash Well-healing surgical scar over the patient's pacer implantation site Resp normal respiratory effort and clear to auscultation bilaterally Auscultation: Negative for rales, rhonchi or wheezes Cardio regular rate, regular rhythm, S1 normal heart sound, S2 normal heart sound and no murmurs Rate: other Other Details: Occasional extrasystoles are noted Peripheral Pulses: radial pulses present and posterior tibial pulses present GI normal to inspection, nondistended, normoactive bowel sounds, soft to palpation and non-tender Extremity normal to inspection Extremity Narrative: Calves are supple no palpable cord General Extremety ED: Negative for edema or tenderness General Extremity: Negative for edema Neuro oriented x3 and no sensory deficits noted Sensorium / Orientation: awake and alert Motor Exam: strength abnormal Psych mental status grossly normal Skin no rashes or lesions noted MDM MDM MDM Narrative Medical decision making narrative: Patient presented secondary to chest pain. She was concerned for a defibrillator discharge, I did have the defibrillator interrogated. Patient has not had any events since September 02, and this was a nonsustained VT that did not require any sort of intervention. Patient had negative work-up in the emergency department including CBC, chemistry, and troponin. Her chest x-ray by my personal review as well as radiology is found to be negative for acute process and to only show chronic changes. Patient's symptoms sound relatively atypical, and I do not think that she requires admission. Her blood pressure did downward trend in the emergency department without intervention. I believe the patient is safe and appropriate for discharge and follow-up with her park guard. Patient was discharged in stable condition. Lab Data Labs: Laboratory Results - last 24 hr 10/06/20 10/06/20 19:38 19:38 WBC 7.3 RBC 6.00 H Hgb 16.2 H Hct 51.5 H MCV 85.8 MCH 27.0 MCHC 31.5 L RDW Std Deviation 45.5 H RDW Coeff of Love 14.5 Plt Count 281 MPV 10.6 Immature Gran % (Auto) 0.400 Neut % (Auto) 57.8 Lymph % (Auto) 30.5 [place] % (Auto) 6.3 Eos % (Auto) 2.5 Baso % (Auto) 2.5 H Absolute Neuts (auto) 4.2 Absolute Lymphs (auto) 2.22 Nucleated RBC % 0 Sodium 137 Potassium 4.7 Chloride 104 Carbon Dioxide 27.0 Anion Gap 6 BUN 21 H Creatinine 1.08 H Estim Creat Clear Calc 44.94 Est GFR (MDRD) Af Amer 68 Est GFR (MDRD) Non-Af 56 L BUN/Creatinine Ratio 19.4 Glucose 89 Calcium 9.3 Troponin I < 0.015 Radiography Chest X-Ray - ED: 2 View and Chronic Changes Diagnostic Testing: Radiology Impression Chest X-Ray 10/06/20 20:07 IMPRESSION: No acute findings. Mild cardiomegaly, no failure. Hiatal hernia. Electronically Signed: Pan Laurent MD at 20:26 EDT Tel , Service support , Discharge Plan Triage Chief Complaint: Chest Pain ED Provider: Tenzin Bob Dx/Rx/DC Orders Clinical Impression: Chest pain Instructions: ED Chest Pain, Noncardiac Prescriptions: No Action buspirone 10 mg tablet 15 mg PO TID PRN PRN (Reason: Anxiety/Agitation) RF: 0 losartan 50 MG tablet 100 mg PO DAILY RF: 0 loratadine 10 MG tablet 10 mg PO DAILY RF: 0 meloxicam 7.5 MG tablet 15 mg PO QHS RF: 0 potassium chloride 10 MEQ tablet,ER particles/crystals 10 meq PO DAILY RF: 0 carvedilol 6.25 MG tablet 6.25 mg PO BID RF: 0 duloxetine 60 MG capsule,delayed release(DR/EC) 60 mg PO DAILY RF: 0 sotalol 120 mg Tablet 120 mg PO BID RF: 0 gabapentin 300 mg Tablet 300 mg PO QHS RF: 0 magnesium oxide 400 mg magnesium Tablet 400 mg PO DAILY RF: 0 Primary Care Provider: Anibal Oliva III Referrals: Anibal Oliva III, MD [Primary Care Provider] - Activity Restrictions/Additional Instructions: Follow-up with your park guard in 3 to 5 days Disposition Disposition: Home, self care
[2020-10-06 21:47] VITALS: BP 175/111; PULSE 62; RESP 16; O2SAT 93
== END 2020-10-06 21:53 | disposition home or self-care (01) ==
PROVIDERS: Emergency Provider Emergency Medicine; PCP Family Medicine
DX: R07.9 Chest pain, unspecified (principal); K44.9 Diaphragmatic hernia without obstruction or gangrene; Z87.891 Personal history of nicotine dependence; Z90.49 Acquired absence of other specified parts of digestive tract; D64.9 Anemia, unspecified; I10 Essential (primary) hypertension; Z79.1 Long term (current) use of non-steroidal anti-inflammatories (NSAID)
CPT/HCPCS: 71045; 80048; 84484; 85025; 93005; 99284; A4216

== ENCOUNTER 2021-01-30 17:34 | Outpatient (CLI) | payer OTHER, SELFPAY ==
[2021-01-30 18:12] VITALS: BP 94/57; PULSE 70; RESP 16; TEMP 37.1; O2SAT 92; BMI 34.7
[2021-01-30] MEDS: 0.9% Saline Lock 10 ML Syringe IV (18:23)
[2021-01-30 18:58] VITALS: BP 112/62; PULSE 71; RESP 16; TEMP 37.3; O2SAT 91
[2021-01-30 19:47] VITALS: BP 123/57; PULSE 71; RESP 16; TEMP 36.6; O2SAT 94
== END 2021-01-30 20:00 | disposition home or self-care (01) ==
LOC: MS3OUT 17:34 → MS3 17:35
PROVIDERS: Referring Provider Nurse Practitioner Adult Health; Visit Provider Nurse Practitioner Adult Health
DX: Z23 Encounter for immunization (principal); U07.1 COVID-19
CPT/HCPCS: J7050; M0243; A4216; Q0240

== ENCOUNTER 2021-02-01 16:26 | Inpatient (IN) | payer OTHER, SELFPAY ==
[2021-02-01] VITALS (8 sets, daily range): BP systolic 120–135; BP diastolic 82–87; PULSE 59–64; RESP 18–25; TEMP 36.5–36.6; O2SAT 88–97; BMI 34.9; BMI 35.1
--- NOTE | 2021-02-01 17:15 | RAD_ITS ---
STUDY: X-RAY CHEST REASON FOR EXAM: Female, 55 years old. Bilateral rales, Covid positive and hypoxic TECHNIQUE: Frontal portable view of the chest COMPARISON: 06 October 2020 FINDINGS: Examination is technically suboptimal due to patient''s condition and ability to cooperate. Diagnostic information is available. There is no pneumothorax, pulmonary edema or pleural effusions. There are bilateral irregular basal opacities, worse on the right. Cardiac size is normal. There is hiatal hernia. Pacemaker is present in the left upper chest with intact leads in the right atrium and right ventricle. RAD/Chest 1 View (Portable) IMPRESSION: Bilateral basal pneumonia. Electronically Signed: Pan Laurent MD at 17:49 EDT Tel , Service support ,
[2021-02-01] MEDS: Loperamide 2 MG Capsule 4 MG PO (17:35)
--- NOTE | 2021-02-01 17:37 | ED.VIS.DYS ---
HPI History of Present Illness Chief Complaint: Shortness of Breath Informant: patient Onset/Context/Timing Onset: Days (January 27) Context: sudden Timing: Continuous Quality: Positive for Dyspnea on exertion Current Severity: Mild Maximum Severity: Moderate Worsened by: Exertion and Coughing Relieved by: Nothing Associated Symptoms cough, rhinorrhea, sore throat, chills and sweats; Negative for post nasal drip, ear pain, fever or subjective Chest Pain: Positive for None Narrative Narrative: Patient is a 58-year-old woman who presents with Covid-like symptoms. She had a positive Covid test on January 28. She presents with increased shortness of breath and GI symptoms. She states does not feel well. She does report headache. Denies photophobia, neck pain or neck stiffness. She denies loss of taste or smell. She does report nasal symptoms. She does report shortness of breath and cough. Cough is nonproductive. She does have GI symptoms. She complains of vague GI symptoms. She does report thirst and dry mouth. She denies rash. She does complain of body aches. There is no history of PE or DVT. PE Risk Factors: Negative for Cancer, OCP + Smoking + > 35, Prior DVT or PE, Recent immobilization, Recent surgery and Recent travel Prior similar symptoms: Yes Recent Illness/Hospitalization: Yes PFSH [facility] Medical History Anemia Arthritis Endometrial cancer Hypertension ICD (implantable cardioverter-defibrillator) in place Right inguinal hernia Seizures Stroke Ventricular tachycardia Home Medications buspirone 10 mg tablet 15 mg PO TID PRN PRN 06/30/17 [History Last Taken 01/31/21] loratadine 10 mg PO DAILY 04/25/20 [History Last Taken 01/31/21] losartan 100 mg PO DAILY 04/25/20 [History Last Taken 01/31/21] meloxicam 15 mg PO DAILY 04/25/20 [History Last Taken 01/31/21] potassium chloride 10 meq PO DAILY 05/26/20 [History Last Taken 01/31/21] carvedilol 12.5 mg PO BID 06/15/20 [History Last Taken 01/31/21] duloxetine 60 mg PO DAILY 06/15/20 [History Last Taken 01/31/21] gabapentin 400 mg PO BID 10/06/20 [History Last Taken 01/31/21] magnesium oxide 400 mg PO DAILY 10/06/20 [History Last Taken 01/31/21] sotalol 120 mg PO BID 10/06/20 [History Last Taken 01/31/21] Allergy/AdvReac Type Severity Reaction Status Date / Time Penicillins [PCN] Allergy Swelling Verified 02/01/21 16:27 erythromycin base AdvReac Upset Verified 02/01/21 16:27 [Erythromycin Base] Stomach sulfamethoxazole AdvReac Upset Verified 02/01/21 16:27 [From Bactrim] Stomach trimethoprim [From Bactrim] AdvReac Upset Verified 02/01/21 16:27 Stomach MACROBID Allergy Mild Hives Uncoded 02/01/21 16:27 Family History (Updated 02/01/21 @ 19:[address] Lucero Us MD) Mother Cancer Hx endometrial CA. Father Myocardial infarction Heart disease Surgical History H/O: hysterectomy (~2005) History of cholecystectomy s/p right inguinal hernia repair with mesh (~06/27/18) Status post club foot correction at Status post implantation of automatic cardioverter/defibrillator (AICD) Social History (Updated 02/01/21 @ 17:[address] Miguel Up MD) household members: spouse Smoking Status: Former smoker alcohol intake: current alcohol intake frequency: other substance use type: does not use ROS ROS ED Constitutional Constitutional ED: Reports chills, fever(s) and other Details: Fevers are subjective. There is no documented fever. ; Denies sweats or weight loss Eyes Eyes: Denies blurry vision, change in vision or diplopia ENT ENT ED: Reports ear pain, rhinorrhea and sore throat Cardiovascular Cardiovascular: Denies chest pain, orthopnea, palpitations or paroxysmal nocturnal dyspnea Respiratory/Chest Respiratory/Chest: Reports cough, dyspnea and dyspnea on exertion; Denies orthopnea or paroxysmal nocturnal dyspnea Gastrointestinal Gastrointestinal: Reports diarrhea and nausea; Denies abdominal pain, constipation or vomiting Genitourinary Genitourinary ED: Denies dysuria, hematuria or urinary frequency Musculoskeletal Musculoskeletal: Reports arthralgias and myalgias; Denies back pain or neck pain Integumentary Denies rash Neurologic Neurologic: Reports headache(s) and weakness; Denies paresthesias Endocrine Endocrinology: Denies polydipsia, polyphagia or polyuria Hematologic/Lymphatic Hematologic/Lymphatic: Denies easy bleeding or easy bruising EXAM Physical Exam Const Vital Signs: 02/01/21 16:27 02/01/21 16:28 02/01/21 16:32 Temperature 97.8 F Temperature Source Temporal Pulse Rate 61 Respiratory Rate 18 Respiratory Effort Normal Non-Labored Respiratory Depth Normal Respiratory Pattern Normal Blood Pressure 122/82 H Blood Pressure Mean 95 Pulse Ox 88 95 Oxygen Delivery Method Room Air Nasal Cannula Oxygen Flow Rate (L/min) 2 02/01/21 18:11 02/01/21 18:13 Temperature 97.8 F Temperature Source Oral Pulse Rate 60 60 Respiratory Rate 25 H 25 H Respiratory Effort Respiratory Depth Respiratory Pattern Blood Pressure 120/82 H 120/82 H Blood Pressure Mean 94 94 Pulse Ox 96 96 Oxygen Delivery Method Nasal Cannula Nasal Cannula Oxygen Flow Rate (L/min) 2 2 Positive well nourished, well developed and obese General Appearance ED: well developed and other Patient appears slightly tachypneic and does not appear toxic. Nutritional Appearance: obese HEENT Reports TM's clear and dry mucous membranes HEENT Narrative: Head is normocephalic. atraumatic Tympanic Membrane ED: Yes TM's clear Mouth ED: Yes dry mucous membranes Mouth: dry mucous membranes Eyes PERRL and EOMs intact bilaterally General Eye ED: Negative for pale conjunctiva or scleral icterus Neck no lymphadenopathy, supple and no meningeal signs Resp normal respiratory effort and No clear to auscultation bilaterally Auscultation: rales bilateral lower and diminished lung sounds Cardio regular rate, regular rhythm, S1 normal heart sound, S2 normal heart sound and no murmurs GI non-tender, non-distended and no masses Auscultation: normoactive bowel sounds Palpation: soft Back/Spine no CVA tenderness and normal to inspection Extremity normal to inspection Extremity Narrative: There is no asymmetry, swelling, discoloration, leg vein distention, palpable cords or tenderness along the distribution of the deep venous system. General Extremety ED: Negative for edema or tenderness General Extremity: Negative for edema Neuro oriented x3 and CN's II-XII intact bilaterally Sensorium / Orientation: alert Motor Exam: strength 5/5 throughout Psych mental status grossly normal Skin no wounds Lesions: no lesions Rashes: no rashes MDM MDM MDM Narrative Medical decision making narrative: With bilateral rales dyspnea suspect patient has Covid pneumonia. She states she has been treated with monoclonal antibiotic therapy. She has not been on Decadron. Since she was hypoxic and clinically has pneumonia will treat with Decadron. Blood work was obtained to assess white count and rule out anemia. Has a diarrhea electrolyte panel was obtained and to specifically rule out hypokalemia. Also to evaluate for any kidney dysfunction. In light of hypoxia, acute renal insufficiency with GFR of 41 diarrhea, and infiltrates due to Covid pneumonia will contact hospitalist for admission. Lab Data Attestation: I reviewed the patient's lab results. Lab results narrative: Patient is neutropenic consistent with Covid. Sodium is 134. Creatinine is 1.41. We will need to compare to prior. Lactate is normal. Labs: Laboratory Results - last 24 hr 02/01/21 02/01/21 02/01/21 17:30 17:30 17:30 WBC 4.1 L RBC 5.81 H Hgb 15.6 H Hct 49.7 H MCV 85.5 MCH 26.9 L MCHC 31.4 L RDW Std Deviation 45.0 H RDW Coeff of Love 14.5 Plt Count 141 L MPV 11.2 Immature Gran % (Auto) 0.500 Neut % (Auto) 71.2 H Lymph % (Auto) 20.8 [place] % (Auto) 7.0 Eos % (Auto) 0.0 Baso % (Auto) 0.5 Absolute Neuts (auto) 2.9 Absolute Lymphs (auto) 0.86 Nucleated RBC % 0 Sodium 134 L Potassium 4.9 Chloride 101 Carbon Dioxide 26.0 Anion Gap 7 BUN 25 H Creatinine 1.41 H Estim Creat Clear Calc 34.42 Est GFR (MDRD) Af Amer 50 L Est GFR (MDRD) Non-Af 41 L BUN/Creatinine Ratio 17.7 Glucose 109 H Lactic Acid 0.8 Calcium 8.7 Phosphorus Magnesium Ferritin Total Bilirubin 0.40 AST 65 H ALT 62 H Alkaline Phosphatase 92 Lactate Dehydrogenase C-React Prot Ext Range B-Natriuretic Peptide Total Protein 6.8 Albumin 2.8 L Globulin 4.0 Albumin/Globulin Ratio 0.7 L Procalcitonin 02/01/21 02/01/21 02/01/21 17:30 17:30 17:30 WBC RBC Hgb Hct MCV MCH MCHC RDW Std Deviation RDW Coeff of Love Plt Count MPV Immature Gran % (Auto) Neut % (Auto) Lymph % (Auto) [place] % (Auto) Eos % (Auto) Baso % (Auto) Absolute Neuts (auto) Absolute Lymphs (auto) Nucleated RBC % Sodium Potassium Chloride Carbon Dioxide Anion Gap BUN Creatinine Estim Creat Clear Calc Est GFR (MDRD) Af Amer Est GFR (MDRD) Non-Af BUN/Creatinine Ratio Glucose Lactic Acid Calcium Phosphorus 4.2 Magnesium 2.6 Ferritin 470 H Total Bilirubin AST ALT Alkaline Phosphatase Lactate Dehydrogenase 505 H C-React Prot Ext Range 56.30 H B-Natriuretic Peptide 48.2 Total Protein Albumin Globulin Albumin/Globulin Ratio Procalcitonin 0.31 H Radiography Chest X-Ray - ED: 1 View, Read by ED Physician (Bibasilar infiltrates are noted. In light of patient's clinical presentation, positive Covid test she has Covid pneumonia.), Normal, Heart, Mediastinum, Bony Structures, Right Infiltrate and Left Infiltrate Diagnostic Testing: Clinical Impression(s) from Imaging Studies Chest X-Ray 02/01/21 17:15 IMPRESSION: Bilateral basal pneumonia. Electronically Signed: Pan Laurent MD at 17:49 EDT Tel , Service support , Discharge Plan Dx/Rx/DC Orders Clinical Impression: Pneumonia due to 2019-nCoV, Diarrhea, MARY (acute kidney injury) Disposition Disposition: Acute Care Hospital [facility] Discharge Date/Time: 02/01/21 19:35
[2021-02-01 17:47] LABS: Absolute Lymphocyte Count 0.86 X10^3/uL (0.83-4.51); Absolute Neutrophil Count 2.9 X10^3/uL (2.0-7.7); Basophil# 0.02 X10^3/uL; Basophil% 0.5 % (0-1); Hematocrit 49.7 % (37-47); Hemoglobin 15.6 g/dL (12.0-15.0); Lymphocyte # 0.86 X10^3/ul (0.83-4.51); Lymphocyte % 20.8 % (19-41); Mean Corp Hgb Conc 31.4 g/dL (32-36); Mean Corpuscular Hgb 26.9 pg (27.0-32.0); Mean Corpuscular Volume 85.5 fL (81-99); Mean Platelet Vol. 11.2 fl (6.2-12.0); Monocyte# 0.29 X10^3/uL; NRBC Flagged by Analyzer 0 % (0-5); Neutrophil # 2.94 X10^3/uL (2.7-7.7); Neutrophil % 71.2 % (47-70); Platelet Count 141 K/mm3 (150-450); RBC Distribution Width CV 14.5 % (11.6-14.6); Red Blood Count 5.81 M/mm3 (4.2-5.4); White Blood Count 4.1 K/mm3 (4.4-11.0)
[2021-02-01] MEDS: dexAMETHasone 10 MG/ML Vial IV (17:52)
[2021-02-01 18:07] LABS: ALB/GLOB Ratio 0.7 RATIO (0.9-2.4); AST(SGOT) 65 U/L (15-37); Alanine Aminotransfer ALT/SGPT 62 U/L (13-56); Albumin, Serum 2.8 g/dL (3.2-5.0); Alkaline Phosphatase 92 U/L (45-117); Anion Gap 7 (5-15); BUN 25 mg/dL (7-18); BUN/Creat Ratio 17.7 RATIO (10-20); Calcium,Total 8.7 mg/dL (8.5-10.1); Chloride 101 mmol/L (98-107); Creatinine, Serum 1.41 mg/dL (0.55-1.02); EST Glomerular Filtration Rate 41 mL/min (>60); Est Glom Filt Rate - Afr Amer 50 mL/min (>60); Estimated Creatinine Clearance 34.42 ml/min; Glucose 109 mg/dL (74-106); Potassium 4.9 mmol/L (3.5-5.1); Protein, Total 6.8 g/dL (6.4-8.2); Sodium Level 134 mmol/L (136-145)
[2021-02-01 18:13] LABS: Lactic Acid 0.8 mmol/L (0.4-1.9)
--- NOTE | 2021-02-01 18:25 | HP.PCM.HOS_ITS ---
HPI - General General Date of Admission: 02/01/21 Date of Service: 02/01/21 Chief Complaint: COVID +, worsening dyspnea HPI Narrative The patient is a 55 y/o F w/ PMHx: Obesity, HTN, Hx endometrial CA, OA, Chronic anemia, Hx ventricular arrhythmias status post ICD placement, Hx remote seizure w/ TBI (only once, not on AED), Hx CVA, Former Tobacco use who presents to the [facility] ED on 02/01/21 with history of initial onset of Covid type symptoms 01/26/2021, testing positive on 01/27/2021 with monoclonal antibody administration however patient has had continued fatigue, malaise, dyspnea, worse with exertion, body aches, ongoing coughing, rhinorrhea, sore throat, diaphoresis, subjective fevers, chills in addition to nausea without emesis and now onset diarrhea 4-5 episodes daily with failure to thrive at home prompting ED reevaluation. Patient is not vaccinated against COVID-19. Work-up in the ED included T 98, heart rate 61, BP 122/82, RR 18, 88% on RA-->95% on 2L NC, CBC with WC 4.1, hemoglobin 15.6, platelet 141 with no marked shift, CMP with sodium 134, BUN/creatinine 25/1.41, glucose 109, lactic acid 0.8, AST/ALT 65/62, chest x-ray with bilateral basal pneumonia. In the ED patient ministered loperamide and Decadron 10 mg IV x1. [facility] Medical History (Updated 02/01/21 @ 18:[address] Miguel Up MD) Anemia Arthritis Endometrial cancer Hypertension ICD (implantable cardioverter-defibrillator) in place Right inguinal hernia Seizures Stroke Ventricular tachycardia Home Medications buspirone 10 mg tablet 15 mg PO TID PRN PRN 06/30/17 [History Last Taken 04/24/20 22:00] loratadine 10 mg PO DAILY 04/25/20 [History Last Taken 04/24/20 22:00] losartan 100 mg PO DAILY 04/25/20 [History Last Taken 04/24/20 22:00] meloxicam 15 mg PO DAILY 04/25/20 [History Last Taken 04/24/20 22:00] potassium chloride 10 meq PO DAILY 05/26/20 [History Last Taken Unknown] carvedilol 12.5 mg PO BID 06/15/20 [History Last Taken Unknown] duloxetine 60 mg PO DAILY 06/15/20 [History Last Taken Unknown] gabapentin 400 mg PO BID 10/06/20 [History Last Taken Unknown] magnesium oxide 400 mg PO DAILY 10/06/20 [History Last Taken Unknown] sotalol 120 mg PO BID 10/06/20 [History Last Taken Unknown] Allergy/AdvReac Type Severity Reaction Status Date / Time Penicillins [PCN] Allergy Swelling Verified 02/01/21 16:27 erythromycin base AdvReac Upset Verified 02/01/21 16:27 [Erythromycin Base] Stomach sulfamethoxazole AdvReac Upset Verified 02/01/21 16:27 [From Bactrim] Stomach trimethoprim [From Bactrim] AdvReac Upset Verified 02/01/21 16:27 Stomach MACROBID Allergy Mild Hives Uncoded 02/01/21 16:27 Family History (Updated 02/01/21 @ 19:[address] Lucero Us MD) Mother Cancer Hx endometrial CA. Father Myocardial infarction Heart disease Surgical History (Updated 02/01/21 @ 19:[address] Lucero Us MD) H/O: hysterectomy (~2005) History of cholecystectomy s/p right inguinal hernia repair with mesh (~06/27/18) Status post club foot correction at Status post implantation of automatic cardioverter/defibrillator (AICD) Social History (Updated 02/01/21 @ 17:[address] Miguel Up MD) household members: spouse Smoking Status: Former smoker alcohol intake: current alcohol intake frequency: other substance use type: does not use ROS ROS Narrative Admission Review of Systems: CONSTITUTIONAL: No weight loss, + fever, chills, weakness or fatigue. HEENT: + TRAN, sore throat, rhinorrhea. Eyes: No visual loss, blurred vision, double vision or yellow sclerae. Ears, Nose, Throat: No hearing loss. SKIN: No rash or itching, lesions, wounds. CARDIOVASCULAR: No chest pain, chest pressure or chest discomfort, palpitations, edema, orthopnea, syncopal events. RESPIRATORY: + shortness of breath, cough without marked sputum, No wheezing, hemoptysis. GASTROINTESTINAL: + anorexia, nausea without vomiting, diarrhea, No abdominal pain, melena, BRBPR. GENITOURINARY: No dysuria, frequency, urgency or retention. NEUROLOGICAL: + headache, Remote Hx TBI w/ seizure x 1. No dizziness, syncope, paralysis, ataxia, numbness or tingling in the extremities, focal weakness, change in bowel or bladder control. MUSCULOSKELETAL: + muscle, back pain, joint pain or stiffness. HEMATOLOGIC: + anemia, bleeding or bruising. LYMPHATICS: No enlarged nodes. No history of splenectomy. PSYCHIATRIC: + history of depression or anxiety. ENDOCRINOLOGIC: No reports of sweating, cold or heat intolerance. No polyuria or polydipsia. ALLERGIES: No history of asthma, hives, eczema or rhinitis. Vital Signs Vital Signs Vital Signs: 02/01/21 16:27 02/01/21 16:28 02/01/21 16:32 Temperature 97.8 F Temperature Source Temporal Pulse Rate 61 Respiratory Rate 18 Respiratory Effort Normal Non-Labored Respiratory Depth Normal Respiratory Pattern Normal Blood Pressure 122/82 H Blood Pressure Mean 95 Pulse Ox 88 95 Oxygen Delivery Method Room Air Nasal Cannula Oxygen Flow Rate (L/min) 2 02/01/21 18:11 02/01/21 18:13 Temperature 97.8 F Temperature Source Oral Pulse Rate 60 60 Respiratory Rate 25 H 25 H Respiratory Effort Respiratory Depth Respiratory Pattern Blood Pressure 120/82 H 120/82 H Blood Pressure Mean 94 94 Pulse Ox 96 96 Oxygen Delivery Method Nasal Cannula Nasal Cannula Oxygen Flow Rate (L/min) 2 2 Weight Weight: 184 lb 15.485 oz Body Mass Index (BMI) 34.9 Physical Exam Narrative Physical Examination: General: Awake, alert, oriented x 3 and cooperative, seated upright in the ED bed, fatigued, ill-appearing, no acute distress. Skin: Normal color, normal turgor, no icterus, no cyanosis. HEENT: AT/NC, EOMI, PERRLA, moderately dry MM, no carotid bruits or JVD noted. Lungs: Diffusely diminished, greater bases, mildly increased respiratory rate, no evidence of any respiratory distress, no rales, ronchi or wheezing. Heart: Regular rate and rhythm; no gallop, rub audible. Abdomen: Soft, obese, NTTP, ND, mildly hyperactive BS, no HSM. Extremities: No cyanosis, clubbing, or edema. Neurological: Patient awake, alert, oriented as noted, cognitive function appears baseline intact; pupils equally reactive to light and accommodation, cranial nerves II-XII grossly normal, moving all 4 extremities, no focal deficits, strength moderately global decrease secondary to acute presentation. Psychiatric: Affect appears fatigued, ill-appearing, no acute evidence of depressive or anxiety feelings. Results Lab / Micro Data Result Diagrams: 02/01/21 17:30 02/01/21 17:30 Labs: Laboratory Results - last 24 hr 02/01/21 17:30: WBC 4.1 L, RBC 5.81 H, Hgb 15.6 H, Hct 49.7 H, MCV 85.5, MCH 26.9 L, MCHC 31.4 L, RDW Std Deviation 45.0 H, RDW Coeff of Love 14.5, Plt Count 141 L, MPV 11.2, Immature Gran % (Auto) 0.500, Neut % (Auto) 71.2 H, Lymph % (Auto) 20.8, [place] % (Auto) 7.0, Eos % (Auto) 0.0, Baso % (Auto) 0.5, Absolute Neuts (auto) 2.9, Absolute Lymphs (auto) 0.86, Nucleated RBC % 0 02/01/21 17:30: Sodium 134 L, Potassium 4.9, Chloride 101, Carbon Dioxide 26.0, Anion Gap 7, BUN 25 H, Creatinine 1.41 H, Estim Creat Clear Calc 34.42, Est GFR (MDRD) Af Amer 50 L, Est GFR (MDRD) Non-Af 41 L, BUN/Creatinine Ratio 17.7, Glucose 109 H, Calcium 8.7, Total Bilirubin 0.40, AST 65 H, ALT 62 H, Alkaline Phosphatase 92, Total Protein 6.8, Albumin 2.8 L, Globulin 4.0, Albumin/Globulin Ratio 0.7 L 02/01/21 17:30: Lactic Acid 0.8 Radiology Impression Chest X-Ray 02/01/21 17:15 IMPRESSION: Bilateral basal pneumonia. Electronically Signed: Pan Laurent MD at 17:49 EDT Tel , Service support , Assessment & Plan Assessment/Plan (1) Pneumonia due to 2019-nCoV: (2) COVID-19: PLAN: The patient is a 55 y/o F w/ PMHx: Obesity, HTN, Hx endometrial CA, OA, Chronic anemia, Hx ventricular arrhythmias status post ICD placement, Hx remote seizure w/ TBI (only once, not on AED), Hx CVA, Former Tobacco use who presents to the [facility] ED on 02/01/21 with history of initial onset of Covid type symptoms 01/26/2021, testing positive on 01/27/2021 with monoclonal antibody administration however patient has had continued fatigue, malaise, dyspnea, worse with exertion, body aches, ongoing coughing, rhinorrhea, sore throat, diaphoresis, subjective fevers, chills in addition to nausea without emesis and now onset diarrhea 4-5 episodes daily with failure to thrive at home prompting ED reevaluation. 1. Acute Hypoxia secondary to Acute Bilateral Pneumonia secondary to Acute Viral Syndrome, COVID-19: Will admit to the MS telemetry, maintain on COVID precautions, will maintain on oxygen with wean as tolerated to room air, PRN albuterol, HOB, IS parameters w/ pending sputum cultures, respiratory viral panel and urine antigens, will obtain D-dimer, procalcitonin, CRP, CPK, Ferritin, LDH, trop and BNP, continue supportive care including q 2 hour turning including prone given no prone bed availability and judicious hydration, closely monitor for worsening status for ARDS and multiorgan failure, will continue IV decadron x 10 doses, given presentation timeline will also initiate IV remdesivir but will need to closely monitor patient renal function and if worsens may need to discontinue. Will have as needed loperamide in addition given ongoing diarrhea. 2. Mild acute renal insufficiency: Secondary to acute presentation as noted #1, GI losses concurrently. Admission BUN/Cr 25/1.41, prior baseline creatinine noted to be 0.7-1.0 primary. Will hydrate, hold nephrotoxic medications and repeat chemistry in AM. If no improvement would plan FeNa assessment. 3. Ventricular arrhythmias: Status post ICD placement, will continue patient home Coreg, sotalol with hold parameters as needed. 4. Hypertension: Continue home regimen including Coreg, sotalol, losartan however if renal function worsens any further will hold nephrotoxic regimen, PRN hydralazine. 5. Chronic pain syndrome with neuropathy: We will continue patient home gabapentin regimen however if renal function worsens further may require renal dosing adjustments. 6. Chart reported History CVA: Will maintain on aspirin, not on statin therapy, continue hypertensive regimen as noted 7. Anxiety and depression: We will continue patient home duloxetine as well as BuSpar regimen. 8. History of TBI with seizure x1: Patient reports she only had one seizure with a head injury and has had no seizure since, not on antiepileptic medication. States she is not on the gabapentin for seizure disorder. 9. DVT prophylaxis: SCDs, Lovenox. 10. CODE status: Patient NADIYA is her son Osvaldo and living will is currently in place. Discussed CODE status at length including difference between FULL code, DNR-CCA and DNR-CC status. Following discussions about the differences in these status, requested Full Code status. Advanced Care Planning Face to Face Time: 16 minutes. Charges/Coding Visit Charges Inpatient E&M: 30004 Init Hosp L3 Procedures Hospitalists Procedures: 41696 Advncd Care Plan 30 Min
[2021-02-01 19:20] LABS: BNP,B-Type NATRIURETIC PEPTIDE 48.2 pg/mL (0-100); Ferritin 470 ng/mL (8-252); LDH 505 U/L (84-246); Magnesium 2.6 mg/dL (1.6-2.6); Phosphorus 4.2 mg/dL (2.5-4.9)
[2021-02-01 19:34] LABS: Procalcitonin 0.31 ng/mL (0.00-0.09)
[2021-02-01] MEDS: 0.9% Normal Saline 1,000 ML 100 ML IV (20:28)
[2021-02-01] MEDS: 0.9% Saline Lock 10 ML Syringe IV (20:28)
[2021-02-01] MEDS: Enoxaparin 30 MG/0.3 ML Syringe SC (22:27)
[2021-02-01] MEDS: Famotidine 20 MG Tablet PO (22:28)
[2021-02-01] MEDS: Sotalol Hydrochloride 80 MG Tablet 120 MG PO (22:28)
[2021-02-01] MEDS: Carvedilol 12.5 MG Tablet PO (22:28)
[2021-02-01] MEDS: Gabapentin 400 MG Capsule PO (22:28)
--- NOTE | 2021-02-01 23:26 | PCS.PANDOC ---
PANDEMIC DOCUMENTATION INITIATED: Date: 02/01/21 Time: 1899
[2021-02-02] VITALS (13 sets, daily range): BP systolic 108–147; BP diastolic 71–85; PULSE 60–64; RESP 16–18; TEMP 36.5–36.9; O2SAT 85–94
[2021-02-02 05:47] LABS: Absolute Lymphocyte Count 0.46 X10^3/uL (0.83-4.51); Absolute Neutrophil Count 1.2 X10^3/uL (2.0-7.7); Basophil# 0.01 X10^3/uL; Basophil% 0.6 % (0-1); Hematocrit 48.5 % (37-47); Hemoglobin 15.3 g/dL (12.0-15.0); Lymphocyte # 0.46 X10^3/ul (0.83-4.51); Lymphocyte % 26.1 % (19-41); Mean Corp Hgb Conc 31.5 g/dL (32-36); Mean Corpuscular Hgb 27.3 pg (27.0-32.0); Mean Corpuscular Volume 86.6 fL (81-99); Mean Platelet Vol. 11.3 fl (6.2-12.0); Monocyte# 0.09 X10^3/uL; Monocyte% 5.1 % (0-10); NRBC Flagged by Analyzer 0 % (0-5); Neutrophil # 1.19 X10^3/uL (2.7-7.7); Neutrophil % 67.6 % (47-70); POSITIVE DIFFERENTIAL YES; POSITIVE MORPHOLOGY YES; Platelet Count 126 K/mm3 (150-450); RBC Distribution Width CV 14.2 % (11.6-14.6); RBC Distribution Width SD 45.3 fl (35.1-43.9); White Blood Count 1.8 K/mm3 (4.4-11.0)
[2021-02-02 05:57] LABS: D-Dimer Quantitative (DVT/PE) <= 0.27 FEU/ug/m (0.27-0.49)
[2021-02-02 06:13] LABS: ALB/GLOB Ratio 0.6 RATIO (0.9-2.4); AST(SGOT) 86 U/L (15-37); Alanine Aminotransfer ALT/SGPT 89 U/L (13-56); Albumin, Serum 2.4 g/dL (3.2-5.0); Alkaline Phosphatase 100 U/L (45-117); Anion Gap 8 (5-15); BUN 20 mg/dL (7-18); BUN/Creat Ratio 20.7 RATIO (10-20); Chloride 107 mmol/L (98-107); Creatinine, Serum 0.97 mg/dL (0.55-1.02); EST Glomerular Filtration Rate 64 mL/min (>60); Est Glom Filt Rate - Afr Amer 77 mL/min (>60); Estimated Creatinine Clearance 50.03 ml/min; Globulin 3.9 g/dL (2.2-4.2); Glucose 168 mg/dL (74-106); Potassium 4.7 mmol/L (3.5-5.1); Protein, Total 6.3 g/dL (6.4-8.2); Sodium Level 136 mmol/L (136-145)
[2021-02-02 06:18] LABS: Differential Indicated SCAN CRITERIA MET
[2021-02-02] MEDS: Losartan Potassium 100 MG Tablet PO (09:30)
[2021-02-02] MEDS: Meloxicam 15 MG Tablet PO (09:30)
[2021-02-02] MEDS: Famotidine 20 MG Tablet PO ×2 (09:30→21:41)
[2021-02-02] MEDS: Potassium Chloride Oral Tablet 10 MEQ PO (09:30)
[2021-02-02] MEDS: Sotalol Hydrochloride 80 MG Tablet 120 MG PO ×2 (09:30→21:41)
[2021-02-02] MEDS: Carvedilol 12.5 MG Tablet PO ×2 (09:30→21:41)
[2021-02-02] MEDS: DULoxetine Hcl 60 MG Capsule PO (09:31)
[2021-02-02] MEDS: Gabapentin 400 MG Capsule PO ×2 (09:31→21:41)
[2021-02-02] MEDS: Magnesium Chloride 64 MG Delay Rel.Tablet 128 MG PO (09:31)
[2021-02-02] MEDS: Loratadine 10 MG Tablet PO (09:31)
[2021-02-02] MEDS: dexAMETHasone 4 MG/ML Vial 6 MG IV (09:32)
[2021-02-02] MEDS: Enoxaparin 30 MG/0.3 ML Syringe SC ×2 (09:32→21:41)
--- NOTE | 2021-02-02 12:21 | CASEMGMT ---
Social Work Note Per geochemist questions, pt has completed HCPOA and LW and provided documents to [facility]. SW reviewed chart, both HCPOA and LW are on file at [facility]. SW printed off documents and placed on pt's chart. Radha Dash MSW, INSIDE SALES ACCOUNT REPRESENTATIVE
--- NOTE | 2021-02-02 12:34 | CASEMGMT ---
ESMER LEWIS Assessment: Face to Face with pt for initial transition planning/care coordination assessment. ESMER LEWIS introduced self and role at [facility], pt voices understanding and consents to assessment. Pt is A/O x4 and answers all questions appropriately at this time. Pt sitting up in bed with O2 on in no distress. Care providers, pharmacy, and demographics verified/updated. Admitting Dx: COVID PNA, hypoxia, renal insuff PCP: Jarett Specialists: Dr. Martin, cardio invoice coder in [place] Preferred Pharmacy: [facility] Insurance: [employer] Prescription Benefit: yes LW/HPOA: Pt states she has a LW/DPOA. Her DPOA is her son Osvaldo Hernandez. LNOK: Osvaldo and Timoteo Hernandez, sons; Cali Hernnadez, Living Arrangements: Pt lives with in a ground level apt with 7 steps to enter with a rail. Pt reports being I in ADL's and denies concerns at home. Transportation: Pt drives self and denies concerns with transportation. DME/HHC/SNF: Pt has a pulse ox at home, denies previous hx of HHC or SNF stays. Pt states she was first tested at [facility] urgent care. She states her is also positive. Provided pt with a verbal local in network list of DME providers, pt has no preference between [facility] [place] [place] and [facility]. Pt states her dil has been providing groceries and supplies. 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 She denies alcohol, cigarette, street drug or illegal drug use. Pt states no concerns with going home at time of dc. Pt states no further concerns/needs. CM to follow. Advised pt to ask CM if any further question/concerns/needs arise, voices understanding. Pt Goal: Home Plan: Home
[2021-02-02 12:55] LABS: Pathologist Review Reviewed
--- NOTE | 2021-02-02 15:43 | PCM.PN.HOSP ---
Subjective Subjective Patient symptom onset on 01/26 and tested positive on 01/27. Mild shortness of breath on exertion and cough with clear phlegm. Mild chest pleuritic discomfort all around the chest on deep breathing and cough. Objective Data Objective Data Vital Signs: Vital Signs Temp Pulse Resp BP Pulse Ox 97.8 F 60 16 108/74 94 02/02/21 08:30 02/02/21 14:00 02/02/21 08:30 02/02/21 08:30 02/02/21 08:30 Oxygen Flow Rate (L/min) 2 Oxygen Delivery Method Nasal Cannula Weight: 185 lb 13.595 oz Body Mass Index (BMI) 35.1 Intake & Output: Intake and Output for Last 24 Hours 01/31/21 02/01/21 02/02/21 23:59 23:59 23:59 Intake Total 750 / 750 1600 / 1600 Balance 750 / 750 1600 / 1600 Lab / Micro Data Result Diagrams: 02/02/21 05:20 02/02/21 05:20 Labs: Laboratory Results - last 24 hr 02/01/21 17:30: WBC 4.1 L, RBC 5.81 H, Hgb 15.6 H, Hct 49.7 H, MCV 85.5, MCH 26.9 L, MCHC 31.4 L, RDW Std Deviation 45.0 H, RDW Coeff of Love 14.5, Plt Count 141 L, MPV 11.2, Immature Gran % (Auto) 0.500, Neut % (Auto) 71.2 H, Lymph % (Auto) 20.8, [place] % (Auto) 7.0, Eos % (Auto) 0.0, Baso % (Auto) 0.5, Absolute Neuts (auto) 2.9, Absolute Lymphs (auto) 0.86, Nucleated RBC % 0 02/01/21 17:30: Sodium 134 L, Potassium 4.9, Chloride 101, Carbon Dioxide 26.0, Anion Gap 7, BUN 25 H, Creatinine 1.41 H, Estim Creat Clear Calc 34.42, Est GFR (MDRD) Af Amer 50 L, Est GFR (MDRD) Non-Af 41 L, BUN/Creatinine Ratio 17.7, Glucose 109 H, Calcium 8.7, Total Bilirubin 0.40, AST 65 H, ALT 62 H, Alkaline Phosphatase 92, Total Protein 6.8, Albumin 2.8 L, Globulin 4.0, Albumin/Globulin Ratio 0.7 L 02/01/21 17:30: Lactic Acid 0.8 02/01/21 17:30: Phosphorus 4.2, Magnesium 2.6, Ferritin 470 H, Lactate Dehydrogenase 505 H, C-React Prot Ext Range 56.30 H 02/01/21 17:30: B-Natriuretic Peptide 48.2 02/01/21 17:30: Procalcitonin 0.31 H 02/02/21 05:20: D-Dimer Quant (PE/DVT) <= 0.27 02/02/21 05:20: WBC 1.8 L, RBC 5.60 H, Hgb 15.3 H, Hct 48.5 H, MCV 86.6, MCH 27.3, MCHC 31.5 L, RDW Std Deviation 45.3 H, RDW Coeff of Love 14.2, Plt Count 126 L, MPV 11.3, Immature Gran % (Auto) 0.600, Neut % (Auto) 67.6, Lymph % (Auto) 26.1, [place] % (Auto) 5.1, Eos % (Auto) 0.0, Baso % (Auto) 0.6, Absolute Neuts (auto) 1.2 L, Absolute Lymphs (auto) 0.46 L, Nucleated RBC % 0, Diff Path Review Reviewed 02/02/21 05:20: Sodium 136, Potassium 4.7, Chloride 107, Carbon Dioxide 21.0, Anion Gap 8, BUN 20 H, Creatinine 0.97, Estim Creat Clear Calc 50.03, Est GFR (MDRD) Af Amer 77, Est GFR (MDRD) Non-Af 64, BUN/Creatinine Ratio 20.7 H, Glucose 168 H, Calcium 8.0 L, Total Bilirubin 0.40, AST 86 H, ALT 89 H, Alkaline Phosphatase 100, Total Protein 6.3 L, Albumin 2.4 L, Globulin 3.9, Albumin/Globulin Ratio 0.6 L Micro: Microbiology 02/01/21 22:00 Urine, Random Legionella Antigen - Final 02/01/21 22:00 Urine, Random Streptococcus pneumoniae Antigen (M - Final 02/01/21 20:15 Mucosa - Nasopharyngeal Respiratory Panel (PCR) - Final Radiography Diagnostic Testing: Radiology Impression Chest X-Ray 10/10/21 17:15 IMPRESSION: Bilateral basal pneumonia. Electronically Signed: Pan Laurent MD at 17:49 EDT Tel , Service support , Physical Exam Narrative General: Alert, Oriented x3, Cooperative HEENT: Atraumatic, PERRLA, EOMI, Normocephalic Oral: No Gingival or Mucosal Lesions/ Ulcerations Neck: Supple, No JVD, Negative Carotid Bruits Lungs: Air entry diminished in bilateral lung bases. Bilateral expiratory wheezing Cardiovascular: Regular rate, Regular Rhythm, Normal S1, Normal S2, No murmurs Abdomen: Bowel Sounds Present, Soft, Non Tender, Non-Distended : No renal angle tenderness. No suprapubic tenderness. Extremities: No edema, Capillary Refill Less than 3 Seconds Skin: No rashes, No breakdown Musculoskeletal: No Tenderness to Palpation of Joints or Extremities Neurological: Cranial nerves II-XII grossly intact, DTR 2+/4 and Symmetrical, Neuro grossly intact Psych/Mental Status: Normal Affect, Appropriate. Assessment & Plan Assessment/Plan (1) Pneumonia due to 2019-nCoV: (2) COVID-19: PLAN: The patient is a 55 y/o F was admitted with flulike symptoms consistent with COVID-19 pneumonia. 1. Acute Hypoxia secondary to Acute Bilateral Pneumonia secondary to COVID-19: On Decadron and remdesivir. Incentive spirometry, Pep and bronchodilator as needed. Respiratory panel negative. Urinary antigens are negative. Inflammatory markers are elevated. Calcitonin 0.31. 2. Mild acute acute renal failure probably prerenal from, GI losses: Admission BUN/Cr 25/1.41, repeat creatinine 0.97 returned to the baseline. MARY resolved 3. Ventricular arrhythmias: Status post ICD placement, on home Coreg, sotalol with hold parameters as needed. 4. Hypertension: Continue Coreg, sotalol, losartan, PRN hydralazine. 5. Chronic pain syndrome with neuropathy: continue patient home gabapentin regimen 6. Chart reported History CVA: Will maintain on aspirin, not on statin therapy, continue hypertensive regimen as noted 7. Anxiety and depression: We will continue patient home duloxetine as well as BuSpar regimen. 8. History of TBI with seizure x1: Patient reports she only had one seizure with a head injury and has had no seizure since, not on antiepileptic medication. States she is not on the gabapentin for seizure disorder. 9. DVT prophylaxis: SCDs, Lovenox. 10. CODE status: Patient NADIYA is her son Osvaldo and living will is currently in place. Full code. Clinical Impression(s) from Imaging Studies Chest X-Ray 02/01/21 17:15 IMPRESSION: Bilateral basal pneumonia. Charges/Coding Visit Charges Inpatient E&M: 00773 Subs Hosp L2
[2021-02-02] MEDS: MELATONIN 3 MG TABLET PO (21:43)
[2021-02-03] VITALS (13 sets, daily range): BP systolic 117–153; BP diastolic 70–97; PULSE 60–64; RESP 16–18; TEMP 36.4–36.8; O2SAT 79–96
--- NOTE | 2021-02-03 04:06 | NURSING ---
Patients pulse ox alarming at 79%, this RN went into patients room and patient had removed 02. 02 reapplied and increased from 5L to 6L, now 92%. IS encouraged and humidification to 02 applied
--- NOTE | 2021-02-03 04:46 | NURSING ---
Patient assisted into prone position.
[2021-02-03] MEDS: Enoxaparin 30 MG/0.3 ML Syringe SC ×2 (09:46→22:54)
[2021-02-03] MEDS: Famotidine 20 MG Tablet PO ×2 (09:47→22:53)
[2021-02-03] MEDS: Losartan Potassium 100 MG Tablet PO (09:47)
[2021-02-03] MEDS: Magnesium Chloride 64 MG Delay Rel.Tablet 128 MG PO (09:47)
[2021-02-03] MEDS: Sotalol Hydrochloride 80 MG Tablet 120 MG PO ×2 (09:47→22:53)
[2021-02-03] MEDS: 0.9% Saline Lock 10 ML Syringe IV (09:47)
[2021-02-03] MEDS: Loratadine 10 MG Tablet PO (09:47)
[2021-02-03] MEDS: Carvedilol 12.5 MG Tablet PO ×2 (09:47→22:54)
[2021-02-03] MEDS: DULoxetine Hcl 60 MG Capsule PO (09:47)
[2021-02-03] MEDS: Meloxicam 15 MG Tablet PO (09:48)
[2021-02-03] MEDS: Gabapentin 400 MG Capsule PO ×2 (09:48→22:54)
[2021-02-03] MEDS: dexAMETHasone 4 MG/ML Vial 6 MG IV (09:48)
[2021-02-03] MEDS: Potassium Chloride Oral Tablet 10 MEQ PO (09:48)
--- NOTE | 2021-02-03 10:41 | PCM.CONS.GEN ---
Assessment & Plan Assessment/Plan (1) Pneumonia due to 2019-nCoV: (2) MARY (acute kidney injury): (3) COVID-19: PLAN: Sx started 01/26. Unvaccinated. recovering. Got monoclonal Ab 01/30. On dex, remdesivir. Isolate for 20 days until 02/15. Vaccination in 3 months due to monoclonal Abs. O2 at 8L. With borderline neutropenia and mid-level O2 reqs, will hold off on baricitinib for now. Will follow, thank you HPI Consult Data Date of Consult: 02/03/21 HPI Narrative HPI Narrative: ANGELITO LIVE, is a 55 F who presented with sx starting 01/26, c/o dry cough, some headache, fatigue, not feeling well. No change in taste or smell. was sick with covid first, recovering. Unvaccinated. Got monoclonal Ab 01/30. Sx worsened, came to ED 02/01, admitted on dex, remdesivir. Feeling a little better, proning. Full ROS performed and neg except as noted above. [facility] Medical History Anemia Arthritis Endometrial cancer Hypertension ICD (implantable cardioverter-defibrillator) in place Right inguinal hernia Seizures Stroke Ventricular tachycardia Home Medications buspirone 10 mg tablet 15 mg PO TID PRN PRN 06/30/17 [History Last Taken 01/31/21] loratadine 10 mg PO DAILY 04/25/20 [History Last Taken 01/31/21] losartan 100 mg PO DAILY 04/25/20 [History Last Taken 01/31/21] meloxicam 15 mg PO DAILY 04/25/20 [History Last Taken 01/31/21] potassium chloride 10 meq PO DAILY 05/26/20 [History Last Taken 01/31/21] carvedilol 12.5 mg PO BID 06/15/20 [History Last Taken 01/31/21] duloxetine 60 mg PO DAILY 06/15/20 [History Last Taken 01/31/21] gabapentin 400 mg PO BID 10/06/20 [History Last Taken 01/31/21] magnesium oxide 400 mg PO DAILY 10/06/20 [History Last Taken 01/31/21] sotalol 120 mg PO BID 10/06/20 [History Last Taken 01/31/21] Allergy/AdvReac Type Severity Reaction Status Date / Time Penicillins [PCN] Allergy Swelling Verified 02/01/21 16:27 erythromycin base AdvReac Upset Verified 02/01/21 16:27 [Erythromycin Base] Stomach sulfamethoxazole AdvReac Upset Verified 02/01/21 16:27 [From Bactrim] Stomach trimethoprim [From Bactrim] AdvReac Upset Verified 02/01/21 16:27 Stomach MACROBID Allergy Mild Hives Uncoded 02/01/21 16:27 Family History (Updated 02/01/21 @ 19:[address] Lucero Us MD) Mother Cancer Hx endometrial CA. Father Myocardial infarction Heart disease Surgical History H/O: hysterectomy (~2005) History of cholecystectomy s/p right inguinal hernia repair with mesh (~06/27/18) Status post club foot correction at Status post implantation of automatic cardioverter/defibrillator (AICD) Social History (Updated 02/01/21 @ 17:[address] Miguel Up MD) household members: spouse Smoking Status: Former smoker alcohol intake: current alcohol intake frequency: other substance use type: does not use Physical Exam Const alert and oriented x3 General Appearance: cooperative Exam Limitations: no limitations HEENT normocephalic and head/scalp atraumatic Eyes PERRL and EOMs intact bilaterally Neck supple and No nodes Resp Auscultation: wheezes and diminished lung sounds Cardio regular rate and regular rhythm GI normal to inspection, nondistended, normoactive bowel sounds Extremity no clubbing, cyanosis or edema Skin no rashes or lesions noted Neuro CN's II-XII intact bilaterally Lab / Micro Data Result Diagrams: 02/02/21 05:20 02/02/21 05:20 Labs: Laboratory Results - last 24 hr 02/02/21 05:20: Diff Path Review Reviewed Micro: Microbiology 02/01/21 22:00 Urine, Random Legionella Antigen - Final 02/01/21 22:00 Urine, Random Streptococcus pneumoniae Antigen (M - Final
--- NOTE | 2021-02-03 13:01 | PCM.PN.HOSP ---
Subjective Subjective Patient got more hypoxic and requires 10 L of oxygen. Mild short of breath. Leukopenia with lymphopenia. ID consulted Objective Data Objective Data Vital Signs: Vital Signs Temp Pulse Resp BP Pulse Ox 97.8 F 60 18 131/78 H 96 02/03/21 09:38 02/03/21 09:38 02/03/21 10:00 02/03/21 09:38 02/03/21 09:45 Oxygen Flow Rate (L/min) 10 Oxygen Delivery Method Nasal Cannula Weight: 187 lb 6.287 oz Body Mass Index (BMI) 35.1 Intake & Output: Intake and Output for Last 24 Hours 02/01/21 02/02/21 02/03/21 23:59 23:59 23:59 Intake Total 750 / 750 1600 / 1600 250 / 250 Output Total 200 / 200 Balance 750 / 750 1400 / 1400 250 / 250 Lab / Micro Data Result Diagrams: 02/02/21 05:20 02/02/21 05:20 Micro: Microbiology 02/01/21 22:00 Urine, Random Legionella Antigen - Final 02/01/21 22:00 Urine, Random Streptococcus pneumoniae Antigen (M - Final 02/01/21 20:15 Mucosa - Nasopharyngeal Respiratory Panel (PCR) - Final Physical Exam Narrative General: Alert, Oriented x3, Cooperative HEENT: Atraumatic, PERRLA, EOMI, Normocephalic Oral: No Gingival or Mucosal Lesions/ Ulcerations Neck: Supple, No JVD, Negative Carotid Bruits Lungs: Air entry diminished in bilateral lung bases. No obvious crepitation or wheezing. Cardiovascular: Regular rate, Regular Rhythm, Normal S1, Normal S2, No murmurs Abdomen: Bowel Sounds Present, Soft, Non Tender, Non-Distended : No renal angle tenderness. No suprapubic tenderness. Extremities: No edema, Capillary Refill Less than 3 Seconds Skin: No rashes, No breakdown Musculoskeletal: No Tenderness to Palpation of Joints or Extremities Neurological: Cranial nerves II-XII grossly intact, DTR 2+/4 and Symmetrical, Neuro grossly intact Psych/Mental Status: Normal Affect, Appropriate. Assessment & Plan Assessment/Plan (1) Pneumonia due to 2019-nCoV: (2) COVID-19: PLAN: The patient is a 55 y/o F was admitted with flulike symptoms consistent with COVID-19 pneumonia. 1. Acute Hypoxia secondary to Acute Bilateral Pneumonia secondary to COVID-19: On Decadron and remdesivir. Incentive spirometry, Pep and bronchodilator as needed. Respiratory panel negative. Urinary antigens are negative. Inflammatory markers are elevated. Calcitonin 0.31. 02/03: Leukopenic with lymphopenia, 0.46 thousand. Thrombocytopenia. Overall suggestive of severe infection. ID consult reviewed and appreciated. Not an ideal candidate for baricitinib with ongoing neutropenia and moderate oxygen requirement. Patient on Decadron and remdesivir. Continue bronchopulmonary hygiene. Transaminases elevated suggestive of acute viral hepatitis due to COVID-19 2. Mild acute acute renal failure probably prerenal from, GI losses: Admission BUN/Cr 25/1.41, repeat creatinine 0.97 returned to the baseline. MARY resolved 3. Ventricular arrhythmias: Status post ICD placement, on home Coreg, sotalol with hold parameters as needed. 4. Hypertension: Continue Coreg, sotalol, losartan, PRN hydralazine. 5. Chronic pain syndrome with neuropathy: continue patient home gabapentin regimen 6. Chart reported History CVA: Will maintain on aspirin, not on statin therapy, continue hypertensive regimen as noted 7. Anxiety and depression: We will continue patient home duloxetine as well as BuSpar regimen. 8. History of TBI with seizure x1: Patient reports she only had one seizure with a head injury and has had no seizure since, not on antiepileptic medication. States she is not on the gabapentin for seizure disorder. 9. DVT prophylaxis: SCDs, Lovenox. 10. CODE status: Patient NADIYA is her son Osvaldo and living will is currently in place. Full code. Clinical Impression(s) from Imaging Studies Chest X-Ray 02/01/21 17:15 IMPRESSION: Bilateral basal pneumonia. Charges/Coding Visit Charges Inpatient E&M: 42906 Subs Hosp L2
--- NOTE | 2021-02-03 15:45 | NURSING ---
talked with Casie Hartmann Infectious disease as well as patient. requested copy of lab result from [facility] regarding covid results. Recieved return fax lab report stating positive Covid collected on 01/27/21, placed on chart
[2021-02-04] VITALS (9 sets, daily range): BP systolic 143–183; BP diastolic 76–97; PULSE 59–62; RESP 16–19; TEMP 36.3–36.7; O2SAT 92–98
--- NOTE | 2021-02-04 00:58 | NURSING ---
Osvaldo Hernandez, pt's son, called in for an update. Yaa LYMAN was unavailable so I updated him on her current condition.
[2021-02-04 06:04] LABS: Hematocrit 44.4 % (37-47); Mean Corp Hgb Conc 31.5 g/dL (32-36); Mean Corpuscular Hgb 27.3 pg (27.0-32.0); Mean Corpuscular Volume 86.5 fL (81-99); Mean Platelet Vol. 11.3 fl (6.2-12.0); Platelet Count 220 K/mm3 (150-450); RBC Distribution Width CV 13.9 % (11.6-14.6); RBC Distribution Width SD 44.9 fl (35.1-43.9); Red Blood Count 5.13 M/mm3 (4.2-5.4); White Blood Count 7.6 K/mm3 (4.4-11.0)
[2021-02-04 06:35] LABS: ALB/GLOB Ratio 0.7 RATIO (0.9-2.4); AST(SGOT) 151 U/L (15-37); Alanine Aminotransfer ALT/SGPT 355 U/L (13-56); Albumin, Serum 2.3 g/dL (3.2-5.0); Alkaline Phosphatase 88 U/L (45-117); Anion Gap 10 (5-15); BUN 22 mg/dL (7-18); BUN/Creat Ratio 22.2 RATIO (10-20); Calcium,Total 7.9 mg/dL (8.5-10.1); Chloride 105 mmol/L (98-107); Creatinine, Serum 0.99 mg/dL (0.55-1.02); EST Glomerular Filtration Rate 62 mL/min (>60); Est Glom Filt Rate - Afr Amer 75 mL/min (>60); Estimated Creatinine Clearance 49.02 ml/min; Globulin 3.5 g/dL (2.2-4.2); Glucose 208 mg/dL (74-106); Potassium 3.9 mmol/L (3.5-5.1); Protein, Total 5.8 g/dL (6.4-8.2); Sodium Level 135 mmol/L (136-145)
[2021-02-04] MEDS: Sotalol Hydrochloride 80 MG Tablet 120 MG PO ×2 (10:20→21:15)
[2021-02-04] MEDS: Loratadine 10 MG Tablet PO (10:21)
[2021-02-04] MEDS: Meloxicam 15 MG Tablet PO (10:21)
[2021-02-04] MEDS: Magnesium Chloride 64 MG Delay Rel.Tablet 128 MG PO (10:21)
[2021-02-04] MEDS: DULoxetine Hcl 60 MG Capsule PO (10:21)
[2021-02-04] MEDS: Losartan Potassium 100 MG Tablet PO (10:21)
[2021-02-04] MEDS: Carvedilol 12.5 MG Tablet PO ×2 (10:21→21:15)
[2021-02-04] MEDS: Gabapentin 400 MG Capsule PO ×2 (10:21→21:15)
[2021-02-04] MEDS: Potassium Chloride Oral Tablet 10 MEQ PO (10:21)
[2021-02-04] MEDS: Famotidine 20 MG Tablet PO ×2 (10:21→21:15)
[2021-02-04] MEDS: Enoxaparin 30 MG/0.3 ML Syringe SC ×2 (11:07→21:15)
[2021-02-04] MEDS: dexAMETHasone 4 MG/ML Vial 6 MG IV (11:44)
[2021-02-04] MEDS: 0.9% Saline Lock 10 ML Syringe IV (11:44)
--- NOTE | 2021-02-04 17:29 | PN.HOSP_ITS ---
Subjective Subjective Patient was seen and examined today, she remains on 7 L via nasal cannula. Patient has no complaints of any fevers or chills to this examiner. Objective Data Objective Data Vital Signs: Vital Signs Temp Pulse Resp BP Pulse Ox 97.6 F L 60 19 H 143/94 H 98 02/04/21 14:16 02/04/21 14:16 02/04/21 14:16 02/04/21 14:16 02/04/21 14:16 Oxygen Flow Rate (L/min) 7 Oxygen Delivery Method Nasal Cannula Weight: 84.9 kg Body Mass Index (BMI) 35.1 Intake & Output: Intake and Output for Last 24 Hours 02/02/21 02/03/21 02/04/21 23:59 23:59 23:59 Intake Total 1600 / 1600 250 / 250 700 / 700 Output Total 200 / 200 Balance 1400 / 1400 250 / 250 700 / 700 Lab / Micro Data Result Diagrams: 02/04/21 05:18 02/04/21 05:18 Labs: Laboratory Results - last 24 hr 02/04/21 05:18: WBC 7.6, RBC 5.13, Hgb 14.0, Hct 44.4, MCV 86.5, MCH 27.3, MCHC 31.5 L, RDW Std Deviation 44.9 H, RDW Coeff of Love 13.9, Plt Count 220, MPV 11.3 02/04/21 05:18: Sodium 135 L, Potassium 3.9, Chloride 105, Carbon Dioxide 20.0 L , Anion Gap 10, BUN 22 H, Creatinine 0.99, Estim Creat Clear Calc 49.02, Est GFR (MDRD) Af Amer 75, Est GFR (MDRD) Non-Af 62, BUN/Creatinine Ratio 22.2 H, Glucose 208 H, Calcium 7.9 L, Total Bilirubin 0.30, AST 151 H, ALT 355 H, Alkaline Phosphatase 88, Total Protein 5.8 L, Albumin 2.3 L, Globulin 3.5, Albumin/Globulin Ratio 0.7 L Micro: Microbiology 02/01/21 22:00 Urine, Random Legionella Antigen - Final 02/01/21 22:00 Urine, Random Streptococcus pneumoniae Antigen (M - Final 02/01/21 20:15 Mucosa - Nasopharyngeal Respiratory Panel (PCR) - Final Physical Exam Const alert, oriented x3, no apparent distress and healthy appearing General Appearance: cooperative, well kempt and well developed Orientation / Consciousness: awake, oriented to person, oriented to place and oriented to time HEENT normocephalic, head/scalp atraumatic and moist oral mucous membranes Head and Scalp: normocephalic Eyes PERRL, EOMs intact bilaterally and conjunctivae normal Neck nuchal rigidity, supple, no JVD, thyroid normal and no carotid bruits General: trachea midline Resp normal respiratory effort, no retractions, no use of accessory muscles and clear to auscultation bilaterally Auscultation: Negative for rales, rhonchi or wheezes Cardio regular rate, regular rhythm, S1 normal heart sound, S2 normal heart sound, no murmurs, no rub, no gallops and no clicks GI normal to inspection, nondistended, normoactive bowel sounds, soft to palpation, non-tender and non-distended Extremity normal to inspection and no clubbing, cyanosis or edema Skin no rashes or lesions noted General Skin Exam: no breakdown Neuro oriented x3, CN's II-XII intact bilaterally, no focal motor deficits and no sensory deficits noted Sensorium / Orientation: awake and alert Speech: speech normal Psych thought process normal and affect normal Assessment & Plan Assessment/Plan (1) Pneumonia due to 2019-nCoV: PLAN: 1. COVID-19 pneumonia-patient remains on dexamethasone and remdesivir, she is being seen by infectious disease #2 acute hypoxic respiratory failure secondary to COVID-19 pneumonia-continue to monitor pulse ox and adjust oxygen accordingly #3 essential hypertension #4 acute kidney injury-resolved #5 history of ventricular tachycardia-status post ICD placement #6 obstructive sleep apnea Charges/Coding Visit Charges Inpatient E&M: 68467 Subs Hosp L2
[2021-02-05] VITALS (8 sets, daily range): BP systolic 117–175; BP diastolic 65–97; PULSE 60–61; RESP 18–20; TEMP 36.4–36.8; O2SAT 92–97
[2021-02-05] MEDS: hydrALAZINE 20 MG/ML Vial 10 MG IV (03:40)
[2021-02-05 07:46] LABS: Hematocrit 45.5 % (37-47); Hemoglobin 14.9 g/dL (12.0-15.0); Mean Corp Hgb Conc 32.7 g/dL (32-36); Mean Corpuscular Hgb 26.6 pg (27.0-32.0); Mean Corpuscular Volume 81.3 fL (81-99); Mean Platelet Vol. 10.7 fl (6.2-12.0); Platelet Count 239 K/mm3 (150-450); RBC Distribution Width CV 13.7 % (11.6-14.6); RBC Distribution Width SD 40.4 fl (35.1-43.9); White Blood Count 8.1 K/mm3 (4.4-11.0)
[2021-02-05 07:53] LABS: Scan Indicated on CBC? Y/N NO
[2021-02-05 08:13] LABS: ALB/GLOB Ratio 0.8 RATIO (0.9-2.4); AST(SGOT) 59 U/L (15-37); Alanine Aminotransfer ALT/SGPT 278 U/L (13-56); Albumin, Serum 2.4 g/dL (3.2-5.0); Alkaline Phosphatase 80 U/L (45-117); Anion Gap 9 (5-15); BUN 18 mg/dL (7-18); Calcium,Total 8.3 mg/dL (8.5-10.1); Chloride 106 mmol/L (98-107); Creatinine, Serum 0.78 mg/dL (0.55-1.02); EST Glomerular Filtration Rate 81 mL/min (>60); Est Glom Filt Rate - Afr Amer 99 mL/min (>60); Estimated Creatinine Clearance 62.22 ml/min; Globulin 3.2 g/dL (2.2-4.2); Glucose 146 mg/dL (74-106); Protein, Total 5.6 g/dL (6.4-8.2); Sodium Level 138 mmol/L (136-145)
[2021-02-05] MEDS: Sotalol Hydrochloride 80 MG Tablet 120 MG PO ×2 (10:48→21:16)
[2021-02-05] MEDS: Gabapentin 400 MG Capsule PO ×2 (10:48→21:16)
[2021-02-05] MEDS: Famotidine 20 MG Tablet PO ×2 (10:48→21:16)
[2021-02-05] MEDS: Potassium Chloride Oral Tablet 10 MEQ PO (10:48)
[2021-02-05] MEDS: Losartan Potassium 100 MG Tablet PO (10:49)
[2021-02-05] MEDS: DULoxetine Hcl 60 MG Capsule PO (10:49)
[2021-02-05] MEDS: Enoxaparin 30 MG/0.3 ML Syringe SC ×2 (10:49→21:16)
[2021-02-05] MEDS: Carvedilol 12.5 MG Tablet PO ×2 (10:49→21:16)
[2021-02-05] MEDS: Loratadine 10 MG Tablet PO (10:49)
[2021-02-05] MEDS: Magnesium Chloride 64 MG Delay Rel.Tablet 128 MG PO (10:49)
[2021-02-05] MEDS: Meloxicam 15 MG Tablet PO (10:49)
[2021-02-05] MEDS: dexAMETHasone 4 MG/ML Vial 6 MG IV (10:50)
[2021-02-05] MEDS: 0.9% Saline Lock 10 ML Syringe IV ×2 (10:50→11:42)
--- NOTE | 2021-02-05 11:01 | PCM.PN.ID ---
Physical Exam Narrative Feeling better, no fever, no sputum, no n/v/d Const alert and no apparent distress General Appearance: cooperative Resp clear to auscultation bilaterally Auscultation: diminished lung sounds Cardio regular rate and regular rhythm GI normal to inspection, nondistended, normoactive bowel sounds Skin no rashes or lesions noted ID ID: Route of nutrition/ use of supplements: [] Nutritional Intake: [] IV Site: [] Flores Catheter: [] Assessment & Plan Assessment/Plan (1) Pneumonia due to 2019-nCoV: (2) MARY (acute kidney injury): (3) COVID-19: PLAN: Sx started 01/26. Unvaccinated. recovering. Got monoclonal Ab 01/30. On dex, remdesivir. Isolate for 20 days until 02/15. Vaccination in 3 months due to monoclonal Abs. O2 at 9L. Feeling better. ALT starting to improve. Will follow
--- NOTE | 2021-02-05 17:52 | PN.HOSP_ITS ---
Subjective Subjective Patient was seen and examined today, she does not complain of any shortness of breath or chest discomfort, she has no complaints of fevers or chills. Patient is currently on 6 L via nasal cannula at this time. Objective Data Objective Data Vital Signs: Vital Signs Temp Pulse Resp BP Pulse Ox 98.1 F 60 18 158/94 H 96 02/05/21 15:55 02/05/21 15:55 02/05/21 15:55 02/05/21 15:55 02/05/21 15:55 Oxygen Flow Rate (L/min) 6 Oxygen Delivery Method Nasal Cannula Weight: 85.4 kg Body Mass Index (BMI) 35.1 Intake & Output: Intake and Output for Last 24 Hours 02/03/21 02/04/21 02/05/21 23:59 23:59 23:59 Intake Total 250 / 250 1400 / 1650 1150 / 1150 Balance 250 / 250 1400 / 1650 1150 / 1150 Lab / Micro Data Result Diagrams: 02/05/21 06:50 02/05/21 06:50 Labs: Laboratory Results - last 24 hr 02/05/21 06:50: WBC 8.1, RBC 5.60 H, Hgb 14.9, Hct 45.5, MCV 81.3 D, MCH 26.6 L , MCHC 32.7, RDW Std Deviation 40.4, RDW Coeff of Love 13.7, Plt Count 239, MPV 10.7 02/05/21 06:50: Sodium 138, Potassium 4.0, Chloride 106, Carbon Dioxide 23.0, Anion Gap 9, BUN 18, Creatinine 0.78, Estim Creat Clear Calc 62.22, Est GFR (MDRD) Af Amer 99, Est GFR (MDRD) Non-Af 81, BUN/Creatinine Ratio 23.0 H, Glucose 146 H, Calcium 8.3 L, Total Bilirubin 0.60, AST 59 H, ALT 278 H, Alkaline Phosphatase 80, Total Protein 5.6 L, Albumin 2.4 L, Globulin 3.2, Albumin/Globulin Ratio 0.8 L Micro: Microbiology 02/01/21 22:00 Urine, Random Legionella Antigen - Final 02/01/21 22:00 Urine, Random Streptococcus pneumoniae Antigen (M - Final 02/01/21 20:15 Mucosa - Nasopharyngeal Respiratory Panel (PCR) - Final Physical Exam Narrative General: Alert, Oriented x3, Cooperative HEENT: Atraumatic, PERRLA, EOMI, Normocephalic Oral: No Gingival or Mucosal Lesions/ Ulcerations Neck: Supple, No JVD, Negative Carotid Bruits Lungs: Air entry diminished in bilateral lung bases. No obvious crepitation or wheezing. Cardiovascular: Regular rate, Regular Rhythm, Normal S1, Normal S2, No murmurs Abdomen: Bowel Sounds Present, Soft, Non Tender, Non-Distended : No renal angle tenderness. No suprapubic tenderness. Extremities: No edema, Capillary Refill Less than 3 Seconds Skin: No rashes, No breakdown Musculoskeletal: No Tenderness to Palpation of Joints or Extremities Neurological: Cranial nerves II-XII grossly intact, DTR 2+/4 and Symmetrical, Neuro grossly intact Psych/Mental Status: Normal Affect, Appropriate. Const alert, oriented x3, no apparent distress and healthy appearing General Appearance: cooperative, well kempt and well developed Orientation / Consciousness: awake, oriented to person, oriented to place and oriented to time HEENT normocephalic, head/scalp atraumatic and moist oral mucous membranes Eyes PERRL, EOMs intact bilaterally and conjunctivae normal Neck nuchal rigidity, supple, no JVD, thyroid normal and no carotid bruits General: trachea midline Resp normal respiratory effort, no retractions, no use of accessory muscles and clear to auscultation bilaterally Auscultation: Negative for rales, rhonchi or wheezes Cardio regular rate, regular rhythm, S1 normal heart sound, S2 normal heart sound, no murmurs, no rub, no gallops and no clicks GI normal to inspection, nondistended, normoactive bowel sounds, soft to palpation, non-tender and non-distended Extremity normal to inspection and no clubbing, cyanosis or edema Skin no rashes or lesions noted General Skin Exam: no breakdown Neuro oriented x3, CN's II-XII intact bilaterally, no focal motor deficits and no sensory deficits noted Sensorium / Orientation: awake and alert Speech: speech normal Psych thought process normal and affect normal Assessment & Plan Assessment/Plan (1) Pneumonia due to 2019-nCoV: PLAN: 1. COVID-19 pneumonia-patient remains on dexamethasone and remdesivir, she is being seen by infectious disease, date of onset appears to be January 27, 2021 #2 acute hypoxic respiratory failure secondary to COVID-19 pneumonia-continue to monitor pulse ox and adjust oxygen accordingly, patient's oxygenation has improved from yesterday #3 essential hypertension #4 acute kidney injury-resolved #5 history of ventricular tachycardia-status post ICD placement #6 obstructive sleep apnea Charges/Coding Visit Charges Inpatient E&M: 70910 Subs Hosp L2
[2021-02-06] VITALS (11 sets, daily range): BP systolic 125–183; BP diastolic 66–101; PULSE 59–61; RESP 16–18; TEMP 36.1–36.8; O2SAT 86–96
[2021-02-06] MEDS: hydrALAZINE 20 MG/ML Vial 10 MG IV (03:56)
[2021-02-06 07:31] LABS: Hematocrit 45.8 % (37-47); Hemoglobin 15.2 g/dL (12.0-15.0); Mean Corp Hgb Conc 33.2 g/dL (32-36); Mean Corpuscular Hgb 26.8 pg (27.0-32.0); Mean Corpuscular Volume 80.8 fL (81-99); Mean Platelet Vol. 10.6 fl (6.2-12.0); Platelet Count 264 K/mm3 (150-450); RBC Distribution Width CV 13.8 % (11.6-14.6); RBC Distribution Width SD 40.4 fl (35.1-43.9); Red Blood Count 5.67 M/mm3 (4.2-5.4); White Blood Count 7.9 K/mm3 (4.4-11.0)
[2021-02-06 07:39] LABS: ALB/GLOB Ratio 0.8 RATIO (0.9-2.4); AST(SGOT) 40 U/L (15-37); Alanine Aminotransfer ALT/SGPT 213 U/L (13-56); Albumin, Serum 2.5 g/dL (3.2-5.0); Alkaline Phosphatase 71 U/L (45-117); Anion Gap 7 (5-15); BUN 19 mg/dL (7-18); BUN/Creat Ratio 26.4 RATIO (10-20); Calcium,Total 8.6 mg/dL (8.5-10.1); Chloride 105 mmol/L (98-107); Creatinine, Serum 0.72 mg/dL (0.55-1.02); EST Glomerular Filtration Rate 89 mL/min (>60); Est Glom Filt Rate - Afr Amer 108 mL/min (>60); Globulin 3.1 g/dL (2.2-4.2); Glucose 135 mg/dL (74-106); Potassium 4.1 mmol/L (3.5-5.1); Protein, Total 5.6 g/dL (6.4-8.2); Sodium Level 136 mmol/L (136-145)
[2021-02-06] MEDS: Magnesium Chloride 64 MG Delay Rel.Tablet 128 MG PO (09:36)
[2021-02-06] MEDS: Famotidine 20 MG Tablet PO (09:36)
[2021-02-06] MEDS: Meloxicam 15 MG Tablet PO (09:36)
[2021-02-06] MEDS: DULoxetine Hcl 60 MG Capsule PO (09:36)
[2021-02-06] MEDS: Sotalol Hydrochloride 80 MG Tablet 120 MG PO (09:36)
[2021-02-06] MEDS: Losartan Potassium 100 MG Tablet PO (09:36)
[2021-02-06] MEDS: Gabapentin 400 MG Capsule PO (09:36)
[2021-02-06] MEDS: Carvedilol 12.5 MG Tablet PO (09:36)
[2021-02-06] MEDS: Loratadine 10 MG Tablet PO (09:37)
[2021-02-06] MEDS: Enoxaparin 30 MG/0.3 ML Syringe SC (09:37)
[2021-02-06] MEDS: 0.9% Saline Lock 10 ML Syringe IV (09:37)
[2021-02-06] MEDS: Potassium Chloride Oral Tablet 10 MEQ PO (09:37)
[2021-02-06] MEDS: dexAMETHasone 4 MG/ML Vial 6 MG IV (09:37)
--- NOTE | 2021-02-06 11:17 | PCM.DC ---
Discharge Instructions Diet Discharge Diet: No restrictions Activity Discharge Activity: Return to Normal Activity Weight Bearing Status: Full weight bearing Additional Activity Instructions:: Please quarantine till 02/15/2021 Follow Up Care Test Results: Test results from this visit will be discussed in further detail at your follow-up appointment, if applicable. Discharge Plan Admission Admit Date/Time: 02/01/21 18:34 Primary Reason for Your Visit: covid-19 Attending Provider: Bal Tanner Primary Care Provider: Slim Denson Consulting Providers: Gregory Eduardo Instructions Additional Instructions / Restrictions: Use oxygen-2 L/min at rest, 4 L/min with ambulation Quarantine until 02/15/2021 Discharge Orders/Prescriptions Prescriptions: New dexamethasone 2 mg tablet 6 mg PO DAILY Qty: 15 RF: 0 famotidine 20 mg Tablet 20 mg PO BID Qty: 10 RF: 0 Continued buspirone 10 mg tablet 15 mg PO TID PRN PRN (Reason: Anxiety/Agitation) RF: 0 losartan 50 MG tablet 100 mg PO DAILY RF: 0 loratadine 10 MG tablet 10 mg PO DAILY RF: 0 meloxicam 7.5 MG tablet 15 mg PO DAILY RF: 0 potassium chloride 10 MEQ tablet,ER particles/crystals 10 meq PO DAILY RF: 0 carvedilol 6.25 MG tablet 12.5 mg PO BID RF: 0 duloxetine 60 MG capsule,delayed release(DR/EC) 60 mg PO DAILY RF: 0 sotalol 120 mg Tablet 120 mg PO BID RF: 0 gabapentin 300 mg Tablet 400 mg PO BID RF: 0 magnesium oxide 400 mg magnesium Tablet 400 mg PO DAILY RF: 0 Referrals / Follow Up: Slim Denson DO [Primary Care Provider] - See Referral Note (in two weeks) Disposition Disposition (needs filled in before D/C Order can be placed): Home, Self Care
--- NOTE | 2021-02-06 19:52 | PCM.DC.SUM ---
Providers Date of Admission: 02/01/21 Date of Discharge: 02/06/21 Primary Care Physician: Dr. Slim Denson, Consultations 02/03/21 08:46 Consult: Infectious Disease Routine Consulting Provider: Gregory Eduardo Reason for Consult: Leukopenia, lymphopenia, COVID-19. Severe hypoxia, Barticinib? EMERGENT Consult: No MD Notified: Yes Date Notified: 02/03/21 Time Notified: 08:46 Method of Notification: Verbal Reason For Visit: COVID PNA, HYPOXIA, RENAL INSUFFICIENCY Diagnosis Discharge Diagnosis (1) Pneumonia due to 2019-nCoV: Status: Acute Code(s): U07.1 - COVID-19; J12.82 - Pneumonia due to coronavirus disease 2018 Plan: Diagnosis: #1 COVID-19 pneumonia #2 acute hypoxic respiratory failure secondary to COVID-19 pneumonia #3 essential hypertension #4 acute kidney injury #5 obstructive sleep apnea Medications at Discharge Home Medications buspirone 10 mg tablet 15 mg PO TID PRN PRN 06/30/17 loratadine 10 mg PO DAILY 04/25/20 losartan 100 mg PO DAILY 04/25/20 meloxicam 15 mg PO DAILY 04/25/20 potassium chloride 10 meq PO DAILY 05/26/20 carvedilol 12.5 mg PO BID 06/15/20 duloxetine 60 mg PO DAILY 06/15/20 gabapentin 400 mg PO BID 10/06/20 magnesium oxide 400 mg PO DAILY 10/06/20 sotalol 120 mg PO BID 10/06/20 dexamethasone 6 mg PO DAILY #15 tab 02/06/21 famotidine 20 mg PO BID #10 tab 02/06/21 Hospital Course Operations None Procedures None Summary of Care Provided Minutes Spent on Discharge: 31 Hospital Course: This 56-year-old white female was seen in the emergency room at [facility] with complaints of shortness of breath, she had positive Covid test on Thursday, January 28, 2021, she complained of shortness of breath and GI symptoms and malaise. Work-up in the emergency room revealed the patient to be hypoxic, labs showed an elevated creatinine at 1.41 and an elevated BUN of 25. Chest x-ray showed bilateral basal pneumonia. Patient was admitted to [place] [address], he was maintained on supplemental oxygen, she was seen in consultation by infectious diseases and she was placed on dexamethasone and remdesivir. Patient improved during her hospital stay, on 02/06/2021, patient was felt to be stable for discharge home, patient needed supplemental oxygen at home at the time of discharge, she needed 2 L via nasal cannula at rest and 4 L via nasal cannula when ambulating. Patient was expected to use oxygen in her home and outside of her home. Patient was cautioned to quarantine until 02/15/2021. On 02/06/2021, patient was seen and examined: On examination she appeared in good health and spirits, she does not appear to be in any distress. Vital signs as documented. Skin warm and dry and without overt rashes. Neck without JVD, thyroid appears normal, trachea is midline, neck is supple. Lungs clear, normal air movement was noted. Heart exam notable for regular rhythm, normal sounds and absence of murmurs, rubs or gallops. Abdomen unremarkable and without evidence of organomegaly, masses, or abdominal aortic enlargement, bowel sounds are present in all 4 quadrants, no abdominal tenderness was noted. Extremities nonedematous, no cyanosis was noted, no clubbing was noted. Neuro: Cranial nerves II through XII are grossly intact, no focal motor deficits were noted, sensation to light touch and pinprick is intact, motor exam 5/5 throughout. Psych: Patient is alert and oriented x3, she does not appear anxious or depressed, she does not appear agitated. Patient was discharged home in stable condition on 02/06/2021. Weight / BMI Weight Weight: 84.7 kg Body Mass Index (BMI) 35.1 ABG / Lab / Microbiology Data Result Diagrams: 02/06/21 07:00 02/06/21 07:00 Laboratory: Laboratory Results - last 24 hr 02/06/21 07:00: WBC 7.9, RBC 5.67 H, Hgb 15.2 H, Hct 45.8, MCV 80.8 L, MCH 26.8 L, MCHC 33.2, RDW Std Deviation 40.4, RDW Coeff of Love 13.8, Plt Count 264, MPV 10.6 02/06/21 07:00: Sodium 136, Potassium 4.1, Chloride 105, Carbon Dioxide 24.0, Anion Gap 7, BUN 19 H, Creatinine 0.72, Estim Creat Clear Calc 67.40, Est GFR (MDRD) Af Amer 108, Est GFR (MDRD) Non-Af 89, BUN/Creatinine Ratio 26.4 H, Glucose 135 H, Calcium 8.6, Total Bilirubin 0.60, AST 40 H, ALT 213 H, Alkaline Phosphatase 71, Total Protein 5.6 L, Albumin 2.5 L, Globulin 3.1, Albumin/Globulin Ratio 0.8 L Microbiology: Microbiology 02/01/21 22:00 Urine, Random Legionella Antigen - Final 02/01/21 22:00 Urine, Random Streptococcus pneumoniae Antigen (M - Final 02/01/21 20:15 Mucosa - Nasopharyngeal Respiratory Panel (PCR) - Final D/C Instructions Discharge Diet: No restrictions Weight Bearing Status: Full weight bearing Additional Activity Instructions: Please quarantine till 02/15/2021 Meaningful Use Info Meaningful Use Diagnoses (Choose all that apply): None applicable Discharge Plan Admission Admit Date/Time: 02/01/21 18:34 Primary Reason for Your Visit: covid-19 Attending Provider: Bal Tanner Primary Care Provider: Slim Denson Consulting Providers: Gregory Eduardo Instructions Additional Instructions / Restrictions: Use oxygen-2 L/min at rest, 4 L/min with ambulation Quarantine until 02/15/2021 Discharge Orders/Prescriptions Prescriptions: New dexamethasone 2 mg tablet 6 mg PO DAILY Qty: 15 RF: 0 famotidine 20 mg Tablet 20 mg PO BID Qty: 10 RF: 0 Continued buspirone 10 mg tablet 15 mg PO TID PRN PRN (Reason: Anxiety/Agitation) RF: 0 losartan 50 MG tablet 100 mg PO DAILY RF: 0 loratadine 10 MG tablet 10 mg PO DAILY RF: 0 meloxicam 7.5 MG tablet 15 mg PO DAILY RF: 0 potassium chloride 10 MEQ tablet,ER particles/crystals 10 meq PO DAILY RF: 0 carvedilol 6.25 MG tablet 12.5 mg PO BID RF: 0 duloxetine 60 MG capsule,delayed release(DR/EC) 60 mg PO DAILY RF: 0 sotalol 120 mg Tablet 120 mg PO BID RF: 0 gabapentin 300 mg Tablet 400 mg PO BID RF: 0 magnesium oxide 400 mg magnesium Tablet 400 mg PO DAILY RF: 0 Referrals / Follow Up: Slim Denson DO [Primary Care Provider] - See Referral Note (in two weeks) Disposition Disposition (needs filled in before D/C Order can be placed): Home, Self Care Charges/Coding Visit Charges Inpatient E&M: 64495 Disch Hosp
--- NOTE | 2021-02-09 15:14 | CASEMGMT ---
RN CM Discharge Follow Up Phone Call: DAMIAN: Radha Strata:3 Call Date: 02/09/21 Discharge Date: 02/06/21 Time of Call:[id number] Duration:<1 min Admitting Dx:Covid pna, hypoxia, renal insuff RN CM attempted to complete follow up phone call after recent hospitalization. Received unidentified voicemail, no message left.
== END 2021-02-06 17:04 | disposition home or self-care (01) | DRG 177 ==
LOC: ED 18:23 → MS3 18:46
PROVIDERS: Internal Medicine Infectious Disease; Admitting Provider Family Medicine; Emergency Provider Emergency Medicine; PCP Student in an Organized Health Care Education/Training Program; Visit Provider Internal Medicine
DX: U07.1 COVID-19 (principal); J12.82 Pneumonia due to coronavirus disease 2019; J96.01 Acute respiratory failure with hypoxia; N17.9 Acute kidney failure, unspecified; I10 Essential (primary) hypertension; F32.A Depression, unspecified; F41.9 Anxiety disorder, unspecified; Z66 Do not resuscitate; Z95.810 Presence of automatic (implantable) cardiac defibrillator; G89.4 Chronic pain syndrome; G62.9 Polyneuropathy, unspecified; Z87.820 Personal history of traumatic brain injury; D64.9 Anemia, unspecified; G47.33 Obstructive sleep apnea (adult) (pediatric); Z28.3 Underimmunization status; Z79.1 Long term (current) use of non-steroidal anti-inflammatories (NSAID); Z82.49 Family history of ischemic heart disease and other diseases of the circulatory system; Z85.42 Personal history of malignant neoplasm of other parts of uterus; Z87.891 Personal history of nicotine dependence; Z88.0 Allergy status to penicillin; Z90.49 Acquired absence of other specified parts of digestive tract; Z90.710 Acquired absence of both cervix and uterus; E66.9 Obesity, unspecified; Z68.35 Body mass index [BMI] 35.0-35.9, adult
CPT/HCPCS: 36415; 71045; 80053; 82728; 83605; 83615; 83735; 83880; 84100; 84145; 85025; 85027; 85379; 86140; 87449; 87633; 97110; 97116; 97162; 97166; 97530; 97535; 99251; 99285; J7030; J7040; J7050; A4216; G0463

== ENCOUNTER 2021-02-10 14:36 | Emergency (ER) | payer OTHER, SELFPAY ==
[2021-02-10 14:38] VITALS: BP 154/91; PULSE 78; RESP 20; TEMP 36.1; O2SAT 92; BMI 34.7
--- NOTE | 2021-02-10 16:48 | RAD_ITS ---
STUDY: X-RAY CHEST REASON FOR EXAM: Female, 56 years old. cough TECHNIQUE: Single AP portable view of the chest. COMPARISON: February 01, 2021 FINDINGS: Moderate irregular consolidation is present throughout the right lung with mild to moderate finding seen in the left lung. The apices are relatively spared. Small bilateral pleural effusions are also present. Stable left chest cardiac device and leads. Normal size heart. Normal mediastinum and johnnie. Normal visualized pulmonary arteries. Normal visualized aortic arch and descending thoracic aorta. Stable osseous structures A small hiatal hernia is present. RAD/Chest 1 View (Portable) IMPRESSION: 1. Mild to moderate bilateral patchy pneumonia Electronically Signed: Reid Smallwood MD at 18:33 EDT , Service support ,
--- NOTE | 2021-02-10 16:48 | CT_ITS ---
STUDY: CT BRAIN WITHOUT CONTRAST REASON FOR EXAM: Female, 56 years old. Confusion covid, foggy, dizzy, hx htn, ca RADIATION DOSAGE (If Supplied By Facility): CTDIvol = ( 44.99 ) mGy, DLP = ( 796.11 ) mGycm TECHNIQUE: Transaxial CT imaging of the brain was performed without administration of intravenous contrast material. Individualized dose optimization techniques were used for this CT. COMPARISON: Head CT dated May 26, 2020 FINDINGS: Normal soft tissue structures. Normal calvarium. There is mild cerebral atrophy with widening of the extra-axial spaces and ventricular dilatation. Focal parenchymal loss in the superior aspect of the left frontal lobe suggest prior infarction or sequela from old trauma. Asymmetric density in the cavernous ICAs and MCAs is a chronic finding. Normal white matter tracts of the cerebral hemispheres. Normal basal ganglia and thalami. Normal brainstem. Normal cerebellum. There is no intracranial hemorrhage. There are no findings of an acute ischemic infarction. Normal visualized paranasal sinuses. CT/Brain/Head without Contrast IMPRESSION: Chronic involutional changes of the brain. Electronically Signed: Reid Smallwood MD at 19:24 EDT , Service support ,
--- NOTE | 2021-02-10 16:50 | EKG12_ITS ---
Test Reason : Blood Pressure : / mmHG Vent. Rate : 066 BPM Atrial Rate : 066 BPM P-R Int : 154 ms QRS Dur : 080 ms QT Int : 434 ms P-R-T Axes : 019 -12 -85 degrees QTc Int : 454 ms Atrial-paced rhythm with occasional Premature ventricular complexes Nonspecific ST-T Changes Abnormal ECG Confirmed by CAITLYN GOODWIN, VAMSI ([id number]), newspaper editor СЕРГЕЙ VALDERRAMA ([id number]) on 02/12/2021 1:44:36 P M Referred By: AKIL Confirmed By:JALIL BRADY MD
[2021-02-10 18:10] LABS: Absolute Lymphocyte Count 0.41 X10^3/uL (0.83-4.51); Absolute Neutrophil Count 6.7 X10^3/uL (2.0-7.7); Basophil# 0.02 X10^3/uL; Basophil% 0.3 % (0-1); Hematocrit 48.9 % (37-47); Hemoglobin 16.3 g/dL (12.0-15.0); Lymphocyte # 0.41 X10^3/ul (0.83-4.51); Lymphocyte % 5.3 % (19-41); Mean Corp Hgb Conc 33.3 g/dL (32-36); Mean Corpuscular Hgb 26.9 pg (27.0-32.0); Mean Corpuscular Volume 80.7 fL (81-99); Mean Platelet Vol. 9.9 fl (6.2-12.0); Monocyte# 0.52 X10^3/uL; Monocyte% 6.7 % (0-10); NRBC Flagged by Analyzer 0 % (0-5); Neutrophil # 6.72 X10^3/uL (2.7-7.7); Neutrophil % 86.9 % (47-70); POSITIVE DIFFERENTIAL YES; Platelet Count 315 K/mm3 (150-450); RBC Distribution Width CV 14.2 % (11.6-14.6); RBC Distribution Width SD 41.1 fl (35.1-43.9); Red Blood Count 6.06 M/mm3 (4.2-5.4); White Blood Count 7.7 K/mm3 (4.4-11.0)
[2021-02-10 18:27] LABS: Differential Indicated SCAN CRITERIA MET
[2021-02-10 18:42] LABS: AST(SGOT) 19 U/L (15-37); Alanine Aminotransfer ALT/SGPT 95 U/L (13-56); Albumin, Serum 2.6 g/dL (3.2-5.0); Alkaline Phosphatase 64 U/L (45-117); Anion Gap 10 (5-15); BUN 16 mg/dL (7-18); BUN/Creat Ratio 19.3 RATIO (10-20); Bilirubin, Direct 0.18 mg/dL (0.00-0.30); Calcium,Total 9.3 mg/dL (8.5-10.1); Chloride 107 mmol/L (98-107); Creatinine, Serum 0.83 mg/dL (0.55-1.02); EST Glomerular Filtration Rate 76 mL/min (>60); Est Glom Filt Rate - Afr Amer 92 mL/min (>60); Estimated Creatinine Clearance 57.79 ml/min; Glucose 192 mg/dL (74-106); Potassium 4.2 mmol/L (3.5-5.1); Protein, Total 6.6 g/dL (6.4-8.2); Sodium Level 138 mmol/L (136-145); Thyroid Stim Hormone (TSH) 0.84 uIU/mL (0.358-3.74); Troponin-I HS 8 pg/mL (3.0-54.0)
[2021-02-10 18:49] LABS: Platelet Estimate ADEQUATE (ADEQ)
[2021-02-10 18:50] LABS: Anisocytosis RARE; Platelet Morphology LARGE; Red Cell Morphology N CHROM NORMAL (NORM C&C)
[2021-02-10 18:53] LABS: Alcohol, Blood (Medical)-Serum < 3.0 mg/dL
[2021-02-10 20:27] LABS: Mucous, Urine 0 SEEN /hpf (<or=2+); Red Blood Cells-Urine 0 SEEN /hpf (0-5)
[2021-02-10 20:29] LABS: Color, Urine Yellow (Yellow); Glucose, Dipstick 50 mg/dl (Normal); Ketone-Dipstick Negative (Negative); Leukocyte Esterase-Dipstick 25 /ul (Negative); Nitrite-Dipstick Positive (Negative); Occult Blood-Urine 10 /ul (Negative); Protein-Dipstick Negative (Negative); Urine Bilirubin Dipstick Negative (Negative); Urine Clarity Clear (Clear); Urine Urobilinogen Normal (Normal)
[2021-02-10 20:34] LABS: Bacteria 2+ /hpf (None Seen); Squamous Epithelial Cells - UA 0-5 SEEN /hpf (5-10); White Blood Cells 0-5 SEEN /hpf (0-5)
[2021-02-10 21:18] LABS: Amphetamine Urine VISTA NEGATIVE (<1000 ng/mL); Barbiturate Urine VISTA NEGATIVE (< 200 ng/mL); Benzodiazepine Urine VISTA NEGATIVE (< 200 ng/mL); Cocaine Urine VISTA NEGATIVE (< 300 ng/mL); Ecstacy Urine VISTA NEGATIVE (< 500 ng/mL); Methadone Urine VISTA NEGATIVE (< 300 ng/mL); PCP Urine VISTA NEGATIVE (< 25 ng/mL); THC Urine VISTA NEGATIVE (< 50 ng/mL); Vista UDS pH Range 5
--- NOTE | 2021-02-10 21:20 | EX.ED.DYSGE1 ---
HPI History of Present Illness Chief Complaint: Dizziness Narrative Narrative: Patient is a 56-year-old female who presents to the ER with multiple complaints. She states she was positive for Covid about 10 days ago and admitted to the hospital for a few days. She states she was discharged home but is felt like she has been having mild confusion and difficulty performing simple tasks. She states she has felt lightheaded and dizzy and with the confusion was concerned there could be worsening infection or need for oxygen so she presents to the hospital for evaluation [facility] Medical History Anemia Arthritis COVID-19 Endometrial cancer Hypertension ICD (implantable cardioverter-defibrillator) in place Right inguinal hernia Seizures Stroke Ventricular tachycardia Home Medications buspirone 10 mg tablet 15 mg PO TID PRN PRN 06/30/17 [History Last Taken 01/31/21] loratadine 10 mg PO DAILY 04/25/20 [History Last Taken 01/31/21] losartan 100 mg PO DAILY 04/25/20 [History Last Taken 01/31/21] meloxicam 15 mg PO DAILY 04/25/20 [History Last Taken 01/31/21] potassium chloride 10 meq PO DAILY 05/26/20 [History Last Taken 01/31/21] carvedilol 12.5 mg PO BID 06/15/20 [History Last Taken 01/31/21] duloxetine 60 mg PO DAILY 06/15/20 [History Last Taken 01/31/21] gabapentin 400 mg PO BID 10/06/20 [History Last Taken 01/31/21] magnesium oxide 400 mg PO DAILY 10/06/20 [History Last Taken 01/31/21] sotalol 120 mg PO BID 10/06/20 [History Last Taken 01/31/21] dexamethasone 6 mg PO DAILY #15 tab 02/06/21 [Rx Last Taken Unknown] famotidine 20 mg PO BID #10 tab 02/06/21 [Rx Last Taken Unknown] cephalexin 500 mg PO TID 7 Days #21 cap 02/10/21 [Rx Last Taken Unknown] Allergy/AdvReac Type Severity Reaction Status Date / Time Penicillins [PCN] Allergy Swelling Verified 02/10/21 14:37 erythromycin base AdvReac Upset Verified 02/10/21 14:37 [Erythromycin Base] Stomach sulfamethoxazole AdvReac Upset Verified 02/10/21 14:37 [From Bactrim] Stomach trimethoprim [From Bactrim] AdvReac Upset Verified 02/10/21 14:37 Stomach MACROBID Allergy Mild Hives Uncoded 02/10/21 14:37 Family History (Updated 02/01/21 @ 19:[address] Lucero Us MD) Mother Cancer Hx endometrial CA. Father Myocardial infarction Heart disease Surgical History H/O: hysterectomy (~2005) History of cholecystectomy s/p right inguinal hernia repair with mesh (~06/27/18) Status post club foot correction at Status post implantation of automatic cardioverter/defibrillator (AICD) Social History (Updated 02/01/21 @ 17:[address] Miguel Up MD) household members: spouse Smoking Status: Former smoker alcohol intake: current alcohol intake frequency: other substance use type: does not use ROS ROS ED Constitutional Constitutional ED: Reports chills, fever(s) and subjective ENT ENT ED: Reports rhinorrhea; Denies sore throat Cardiovascular Cardiovascular: Denies chest pain Respiratory/Chest Respiratory/Chest: Reports cough and dyspnea Gastrointestinal Gastrointestinal: Denies abdominal pain, diarrhea, nausea or vomiting Genitourinary Genitourinary ED: Denies dysuria Musculoskeletal Musculoskeletal: Reports myalgias Integumentary Denies rash Neurologic Neurologic: Denies headache(s) Hematologic/Lymphatic Hematologic/Lymphatic: Denies easy bleeding or easy bruising EXAM Physical Exam Const Vital Signs: 02/10/21 14:38 02/10/21 17:31 Temperature 97 F L Temperature Source Temporal Pulse Rate 78 Respiratory Rate 20 H Respiratory Effort Normal Non-Labored Respiratory Pattern Normal Blood Pressure 154/91 H Blood Pressure Mean 112 Pulse Ox 92 Oxygen Delivery Method Room Air Positive well nourished and well developed General Appearance ED: well developed HEENT Reports moist mucous membranes Eyes PERRL and EOMs intact bilaterally Neck supple Chest Wall palpation of chest normal Resp normal respiratory effort and clear to auscultation bilaterally Cardio regular rate and regular rhythm GI normal to inspection, nondistended, normoactive bowel sounds, non-tender, non-distended and no masses Auscultation: normoactive bowel sounds Palpation: soft Extremity normal to inspection Neuro oriented x3 and CN's II-XII intact bilaterally Neuro Narrative: Cranial nerves II through XII are grossly intact there are no focal neurologic deficits. No pronator drift no dysmetria no truncal ataxia Sensorium / Orientation: alert Motor Exam: strength 5/5 throughout Psych mental status grossly normal Skin no rashes or lesions noted MDM MDM MDM Narrative Medical decision making narrative: Patient presented to the ER in no acute distress with normal neurologic exam and no focal deficits to suggest stroke. With her report of dizziness and mild confusion I did elect to perform a basic laboratory work. Blood work revealed no acute findings and urine sample did show changes consistent with infection. However patient does not have acute kidney injury changes or uroseptic changes. Noncontrast CT revealed no acute finding is age-related change. Chest x-ray did show infiltrates but with her recent Covid diagnosis this is consistent with Covid pneumonia. On reevaluation the patient is awake and alert with normal neurologic exam. She has no need for supplemental oxygen. Therefore I do not feel there is need to keep the patient in the hospital and she can be placed on antibiotics for the UTI and can follow-up with family doctor on an outpatient basis Lab Data Attestation: I reviewed the patient's lab results. Labs: Laboratory Results - last 24 hr 02/10/21 02/10/21 02/10/21 17:45 17:45 17:45 WBC 7.7 RBC 6.06 H Hgb 16.3 H Hct 48.9 H MCV 80.7 L MCH 26.9 L MCHC 33.3 RDW Std Deviation 41.1 RDW Coeff of Love 14.2 Plt Count 315 MPV 9.9 Immature Gran % (Auto) 0.800 Neut % (Auto) 86.9 H Lymph % (Auto) 5.3 L [place] % (Auto) 6.7 Eos % (Auto) 0.0 Baso % (Auto) 0.3 Absolute Neuts (auto) 6.7 Absolute Lymphs (auto) 0.41 L Nucleated RBC % 0 Differential Comment SEE COMMENT Platelet Estimate ADEQUATE Plt Morphology Comment LARGE RBC Morphology N CHROM Anisocytosis RARE Sodium 138 Potassium 4.2 Chloride 107 Carbon Dioxide 21.0 Anion Gap 10 BUN 16 Creatinine 0.83 Estim Creat Clear Calc 57.79 Est GFR (MDRD) Af Amer 92 Est GFR (MDRD) Non-Af 76 BUN/Creatinine Ratio 19.3 Glucose 192 H Calcium 9.3 Total Bilirubin 0.70 Direct Bilirubin 0.18 AST 19 ALT 95 H Alkaline Phosphatase 64 Ammonia 17.0 Troponin I High Sens 8 Total Protein 6.6 Albumin 2.6 L Globulin 4.0 TSH 0.84 Urine Color Urine Clarity Urine pH Ur Specific [place] Urine Protein Urine Glucose (UA) Urine Ketones Urine Occult Blood Urine Nitrite Urine Bilirubin Urine Urobilinogen Ur Leukocyte Esterase Urine RBC Urine WBC Ur Squamous Epith Cells Urine Bacteria Urine Mucus Urine Opiates Screen Urine Methadone Screen Ur Barbiturates Screen Ur Phencyclidine Scrn Ur Amphetamines Screen U Methamphetamin-MDMA U Benzodiazepines Scrn Urine Cocaine Screen U Cannabinoids Screen Ur Drug Screen Comment Ethyl Alcohol 02/10/21 02/10/21 02/10/21 17:45 20:22 20:22 WBC RBC Hgb Hct MCV MCH MCHC RDW Std Deviation RDW Coeff of Love Plt Count MPV Immature Gran % (Auto) Neut % (Auto) Lymph % (Auto) [place] % (Auto) Eos % (Auto) Baso % (Auto) Absolute Neuts (auto) Absolute Lymphs (auto) Nucleated RBC % Differential Comment Platelet Estimate Plt Morphology Comment RBC Morphology Anisocytosis Sodium Potassium Chloride Carbon Dioxide Anion Gap BUN Creatinine Estim Creat Clear Calc Est GFR (MDRD) Af Amer Est GFR (MDRD) Non-Af BUN/Creatinine Ratio Glucose Calcium Total Bilirubin Direct Bilirubin AST ALT Alkaline Phosphatase Ammonia Troponin I High Sens Total Protein Albumin Globulin TSH Urine Color Yellow Urine Clarity Clear Urine pH 5.0 Ur Specific [place] 1.020 Urine Protein Negative Urine Glucose (UA) 50 H Urine Ketones Negative Urine Occult Blood 10 H Urine Nitrite Positive H Urine Bilirubin Negative Urine Urobilinogen Normal Ur Leukocyte Esterase 25 H Urine RBC 0 SEEN Urine WBC 0-5 SEEN Ur Squamous Epith Cells 0-5 SEEN Urine Bacteria 2+ Urine Mucus 0 SEEN Urine Opiates Screen NEGATIVE Urine Methadone Screen NEGATIVE Ur Barbiturates Screen NEGATIVE Ur Phencyclidine Scrn NEGATIVE Ur Amphetamines Screen NEGATIVE U Methamphetamin-MDMA NEGATIVE U Benzodiazepines Scrn NEGATIVE Urine Cocaine Screen NEGATIVE U Cannabinoids Screen NEGATIVE Ur Drug Screen Comment Ethyl Alcohol < 3.0 Radiography Diagnostic Testing: Clinical Impression(s) from Imaging Studies Brain CT 02/10/21 16:48 IMPRESSION: Chronic involutional changes of the brain. Electronically Signed: Reid Smallwood MD at 19:24 EDT , Service support , Chest X-Ray 02/10/21 16:48 IMPRESSION: 1. Mild to moderate bilateral patchy pneumonia Electronically Signed: Reid Smallwood MD at 18:33 EDT , Service support , Discharge Plan Triage Chief Complaint: Dizziness Other Complaint: Shortness of Breath ED Provider: Scar Howe Dx/Rx/DC Orders Clinical Impression: UTI (urinary tract infection), Pneumonia due to 2019 novel coronavirus Instructions: Coronavirus Disease 2019 (COVID-19): Caring for Yourself or Others, Urinary Tract Infections in Women Prescriptions: New cephalexin 500 mg capsule 500 mg PO TID 7 Days Qty: 21 RF: 0 No Action buspirone 10 mg tablet 15 mg PO TID PRN PRN (Reason: Anxiety/Agitation) RF: 0 losartan 50 MG tablet 100 mg PO DAILY RF: 0 loratadine 10 MG tablet 10 mg PO DAILY RF: 0 meloxicam 7.5 MG tablet 15 mg PO DAILY RF: 0 potassium chloride 10 MEQ tablet,ER particles/crystals 10 meq PO DAILY RF: 0 carvedilol 6.25 MG tablet 12.5 mg PO BID RF: 0 duloxetine 60 MG capsule,delayed release(DR/EC) 60 mg PO DAILY RF: 0 sotalol 120 mg Tablet 120 mg PO BID RF: 0 gabapentin 300 mg Tablet 400 mg PO BID RF: 0 magnesium oxide 400 mg magnesium Tablet 400 mg PO DAILY RF: 0 dexamethasone 2 mg tablet 6 mg PO DAILY Qty: 15 RF: 0 famotidine 20 mg Tablet 20 mg PO BID Qty: 10 RF: 0 Primary Care Provider: Slim Denson Referrals: Slim Denson DO [Primary Care Provider] - Disposition Disposition: Home, Self Care
[2021-02-10 21:44] VITALS: BP 151/89; PULSE 68; RESP 20; O2SAT 99
[2021-02-10] MEDS: Cephalexin 250 MG Capsule 500 MG PO (21:47)
== END 2021-02-10 21:49 | disposition home or self-care (01) ==
PROVIDERS: Emergency Provider Emergency Medicine; PCP Student in an Organized Health Care Education/Training Program
DX: N39.0 Urinary tract infection, site not specified (principal); U07.1 COVID-19; J12.82 Pneumonia due to coronavirus disease 2019; Z87.891 Personal history of nicotine dependence
CPT/HCPCS: 70450; 71045; 80048; 80076; 80307; 81001; 82077; 82140; 84443; 84484; 85025; 87077; 87086; 87088; 87186; 93005; 99285; A4216

== ENCOUNTER 2021-04-01 09:00 | Outpatient (RCR) | payer OTHER, SELFPAY ==
--- NOTE | 2021-04-01 09:03 | BH.SGPN.GN ---
Behaviors/Verbalizations/Mental Status: []Client alert and oriented, casually dressed and groomed. Eye contact good. Motor activity appropriate. Speech within normal limits. Affect constricted, mood dysthymic. Thoughts linear, logical, no signs of hallucinations or delusions. Reviewed client?s symptom tracker, no risk for suicidal ideation, plan, or intent as of 04/01/21 Client Response/Progress/Benefit: C[]Client responded well to session, receptive to feedback. Client's first day of IOP tx and reports feeling ready to be in treatment, but also anxious. Client shared she had COVID a few months ago and now has long-COVID which continues to impact client's ability to function. Client has been off work because of her health which increases financial stress. Client reports she hopes to learn how to manage her depression and anxiety while in IOP. Group members did well to welcome client and give client feedback on what to expect from IOP. Appeared to benefit from connecting with peers. Client will continue IOP tx to prevent decompensation, gain healthy coping skills, and improve daily functioning. Narrative Note: []
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
[2021-04-01 12:23] VITALS: BP 142/98; PULSE 69
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
--- NOTE | 2021-04-01 12:50 | BH.DR.ITP ---
Initial Treatment Plan Patient Information Visit Information: ADMISSION DATE: EXPECTED LOS: 4-6 weeks Problems/Symptoms Problem #1:: Anxiety Symptom:: Worry, negative rumination, avoidance and isolating Problem #2:: Depression Symptom:: Sadness, crying, irritable, low energy, decreased concentration, worthlessness, guilt, passive thoughts of
--- NOTE | 2021-04-01 16:06 | BH.COMM_ITS ---
Communication Note - Communication with Client Communication Note: Discussed with Dr. Chavarria after Dr. Chavarria spoke with client's criminal defense attorney about possibly ordering Wellbutrin XL 150mg. Dr. Chavarria gave verbal order for Wellbutrin XL 150mg PO daily. Discussed this new order with client and prescription was called into [facility] in [place] per client's request.
--- NOTE | 2021-04-02 09:07 | BH.SGPN.GN ---
Behaviors/Verbalizations/Mental Status: []Eye contact is good. Motor activity is appropriate. Appearance is casual. Speech is Appropriate. Mood is euthymic. Affect is congruent. Thoughts are linear and logical. No evidence of psychosis. Reviewed daily check in sheet and no reports of suicidal ideations or intent. Client Response/Progress/Benefit: [] Pt responded well to session AEB pt listening attentively to others and sharing thoughts and feelings. 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 Pt stated additional mental health positive as getting the appropriate amount of sleep last night for the first time in a long time. Pt reported additional positive as making it to IOP despite having stressor of having to find transportation this morning. Pt stated in the past she would have just cancelled coming but instead called herself a taxi so she could make it today. Pt identified stressor as her apartment being cluttered and she has a hard time letting go of items. Pt seemed to benefit from support from peers and openly sharing her thoughts. Pt to continue IOP to continue use of healthy coping skills, challenge negative thoughts and prevent decompensation.
--- NOTE | 2021-04-02 10:18 | BH.SGPN.GN ---
Behaviors/Verbalizations/Mental Status: []Client alert and oriented, casually dressed and groomed. Eye contact good. Motor activity appropriate. Speech within normal limits. Affect congruent, mood anxious and depressed. Thoughts linear, logical, no signs of hallucinations or delusions.[] Client Response/Progress/Benefit: []Pt first day in IOP treatment, she was an attentive participant AEB taking notes and contributing throughout. Attentive during psychoeducation on Conflict Styles ( Avoidant, Competing, Accommodating, and Collaborating). Participated in interactive group discussion on benefits of conflict.? Pt agreed with fellow participants that ?conflict is necessary for personal growth?. Pt along with peers identified several reasons conflict is often avoided which included; anxiety, fear of other?s reaction, not wanting to face additional conflict, and negative past experiences. Pt reported connecting most with the competing conflict resolution style. Benefited from increased awareness on conflict styles. Will continue in IOP to increase insight into healthier coping skills, promote mood stability, and improve functioning. Narrative Note: []
--- NOTE | 2021-04-02 11:19 | BH.SGPN.GN ---
Behaviors/Verbalizations/Mental Status: []Client alert and oriented, casually dressed and groomed. Eye contact good. Motor activity appropriate. Speech within normal limits. Affect congruent, mood anxious. Thoughts linear, logical, no signs of hallucinations or delusions. Client Response/Progress/Benefit: []Client new to IOP tx, did well to remain engaged in session AEB actively participating in group activity and providing input during reflection exercise. Client did well to review own approach to conflict in the activity versus how she approaches conflict outside group environment. Client wants to work on better managing conflict by taking more of a cooperative approach to conflict as she often struggles with being competing. Shared she can do so by challenging herself to refrain from responding right away and instead take a break to calm down first. Appeared to benefit from gaining strategies to help client better manage conflict. Will continue IOP tx to improve mood stability, improve self-care and use of healthy coping skills, as well as improve overall functioning. Narrative Note: []
--- NOTE | 2021-04-02 13:37 | BH.MDN ---
Multi-Disciplinary Note - Note 30-min Individual Time Started:: 11:30 Date: 04/02/21 Purpose of session/treatment goals addressed:: To gather information on client's current stressors, symptoms, triggers, and tx goals. Another goal was to build rapport and provide emotional support. Eye Contact:: Good Motor Activity:: Appropriate Appearance:: Casual Speech:: Rapid, Other - circumstantial Mood:: Euthymic, Anxious Affect:: Congruent Thoughts:: Racing, No evidence of hallucinations/delusions noted Staff Interventions:: psychoeducation on: - depression, anxiety, and the connection of emotions, thoughts, and behaviors., rapport building, strengths perspective, goal setting Client Response:: Client responded well to session, open to meeting with therapist. Client stated she is excited to be in IOP and recognizes she needed the help. Client reported she has struggled with anxiety and depression for a long time, but having COVID exacerbated her mental health symptoms. Client identified her treatment goals as reducing overthinking, reduce guilt, gain better communication skills, reduce avoidance, improve daily functioning, and breaking unhelpful patterns of behavior to improve her relationships. Client shared she has been avoiding everything right now, even though she knows there are consequences and things need done. Responded well to the psychoeducation on the connection between emotions, thoughts, and behaviors. Client stated she wants to stop being like my mother referring to certain behaviors she does that create conflict between client and her son. Client has been in counseling on and off for the past 3-4 years and has found it helpful. Client shared she is receptive to homework. Risks/Concerns:: Client denies any suicidal ideations, plan, or intent as of 04/02/21. Denies any homicidal ideations. Progress Toward Goals/Plan:: Client?s second day of IOP tx and she reports feeling excited about the program, but also overwhelmed. Client reports numerous stressors within the last year that contribute to her worsening mental health symptoms including getting COVID earlier this year. Client now has long COVID which continues to impact her physical functioning and mental health. Client endorses a depressed mood, anxiety, ruminations, irritability, guilt, and difficulty regulating her emotions. Client to continue IOP tx as the structure, support, and education will hopefully prevent worsening of symptoms and hospitalization. Time Stopped:: 11:55
--- NOTE | 2021-04-02 13:51 | BH.MTP_ITS ---
Master Treatment Plan - Patient Information Program Physician:: Dr. Yoanna Buchanan Primary Therapist:: Mel KINNEY - Psychiatric Diagnoses Psychiatric Diagnoses:: Generalized anxiety disorder; Major depressive disorder, recurrent, severe without psychosis F 33.2 Diagnosis Code(s):: F 33.2 - Estimated LOS Estimated LOS (in weeks):: 6 Problem/Goal #1 - Problem/Goal #1 Stated Goal:: Client will decrease intensity, duration, and frequency of anxiety so that daily functioning is not impaired. Description of Barriers: Client has numerous health issues including long COVID that continues to impact client. Client has experienced grief throughout her life and lost her daughter almost two decades ago. Client reports because she has been depressed she has been more irritable and isolating which impacts relationships. Functional Impact: Client is a 56 year-old female who was self-referred to [facility] due to worsening depression, anxiety, and functioning. Client reports history of anxiety, depression, and hoarding behaviors. No previous psychiatric admissions. Client reports her anxiety exacerbates her depressive symptoms because of constant worries that lead to negative thought patterns. Client reports symptoms have been worsening over the last several months. Client had COVID in January 2021 and she is still experiencing after effects that are preventing client from working. Client currently endorses poor concentration, lack of energy, lack of motivation, poor sleep, decreased appetite, racing thoughts, and increased irritability. 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 Client has also been isolating which is impacting her relationships and social life. Goal Relevant Strengths/Supports: Client is motivated and tired of feeling this way which will benefit client in treatment. Client has family support. - Objectives Objective #1 Stated Objective: Client will identify 2-3 anxiety triggers and 2 calming coping skills to reduce anxiety as shown by decreased DSM-5 cross cutting symptom measure scores. Interventions: Therapist will help client increase awareness of anxiety triggers and avoidance behaviors. Therapist will teach client various calming and mindfulness strategies to promote emotional regulation and reduction of anxiety. Therapist will encourage client to implement healthy coping skills on a regular basis and increase self-care in all areas. Discharge Criteria: Client will have accomplished this goal when can report at least 2 triggers for anxiety and 2 calming strategies to manage symptoms. Additionally, client will have accomplished this goal when she can report reduced DSM-5 cross cutting symptoms for anxiety. Target Date: 05/13/21 Review Date: 04/29/21 Status: open Objective #2 Stated Objective: Client will identify 2-3 cognitive distortions that lead to rumination and learn 2-3 ways to manage these thoughts to better manage anxiety and stress. Interventions: Therapist will provide education on the most common cognitive distortions and teach client the connection between thoughts, emotions, and feelings. Therapist will assist client in identifying, challenging, and replacing dysfunctional thoughts with positive, more realistic thoughts. Therapist will use CBT and DBT techniques to help client gain awareness of thinking errors and learn how to more effectively handle negative thoughts. Discharge Criteria: Client will have accomplished this goal when can identify at least 2 cognitive distortions and at least 2 coping skills to manage negative thoughts. Target Date: 05/13/21 Review Date: 04/29/21 Status: open Problem/Goal #2 - Problem/Goal #2 Stated Goal:: Client will decrease depressive symptoms, guilt, low motivation, negative self-talk, and passive thoughts of due to major depression disorder. Description of Barriers: Client has numerous health issues including long COVID that continues to impact client. Client has experienced grief throughout her life and lost her daughter almost two decades ago. Client reports because she has been depressed she has been more irritable and isolating which impacts relationships. Functional Impact: Client is a 56 year-old female who was self-referred to [facility] due to worsening depression, anxiety, and functioning. Client reports history of anxiety, depression, and hoarding behaviors. No previous psychiatric admissions. Client reports her anxiety exacerbates her depressive symptoms because of constant worries that lead to negative thought patterns. Client reports symptoms have been worsening over the last several months. Client had COVID in January 2021 and she is still experiencing after effects that are preventing client from working. Client currently endorses poor concentration, lack of energy, lack of motivation, poor sleep, decreased appetite, racing thoughts, and increased irritability. 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 Client has also been isolating which is impacting her relationships and social life. Goal Relevant Strengths/Supports: Client is motivated and tired of feeling this way which will benefit client in treatment. Client has family support. - Objectives Objective #1 Stated Objective: Client will learn and utilize 2-3 healthy coping strategies to better manage depressive symptoms as shown by a reduced DSM-5 scores for depression. Interventions: Through group and individual sessions, therapist will help client identify triggers and warning signs of depression and emotional dysregulation including emotional, physical, and behavioral changes. Therapist will teach client various coping skills to manage her symptoms and give client tangible resources to use to regulate emotions. Therapist will use cognitive restructuring techniques and help client gain awareness of negative thoughts that reinforce guilt and depression. Therapist will provide psychoeducation on maintenance cycles and help client learn ways to break unhealthy maintenance cycles. Therapist will help client incorporate behavioral activation and assist client in setting SMART goals. Discharge Criteria: Client will have met this goal when she can report learning and using at least 2 coping skills to manage depressive symptoms. Additionally, client will have met this goal when her depressive symptoms have reduced on the DSM-5 scale. Target Date: 05/13/21 Review Date: 04/29/21 Status: open Objective #2 Stated Objective: Client will identify at least 2-3 negative self-talk messages used to reinforce negative core beliefs and replace thoughts with positive, realistic messages. Interventions: Therapist will help client identify distorted, negative beliefs about self and replace with more realistic, affirmative messages. Therapist will use CBT to help client increase insight to the connection between thoughts, emotions, and behaviors. Therapist will encourage client to practice thought challenging. Discharge Criteria: Client will have achieved this goal when can verbalize at least 2 negative self-talk messages and effectively replace those thoughts with affirmative messages. Target Date: 05/13/21 Review Date: 04/29/21 Status: open
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
--- NOTE | 2021-04-06 09:07 | BH.SGPN.GN ---
Behaviors/Verbalizations/Mental Status: []Client alert and oriented, casually dressed and groomed. Eye contact good. Motor activity appropriate. Speech within normal limits. Affect congruent, mood euthymic and anxious. Thoughts linear, logical, no signs of hallucinations or delusions. Reviewed client?s symptom tracker, no risk for suicidal ideation, plan, or intent as of 04/06/21 Client Response/Progress/Benefit: []Client responded well to session, providing input to peers and willing to process with group. Client reports feeling optimistic? today as she had a positive weekend spending time with her grandchildren. Shared that she had a small moment of increased stress and anxiety when one of her older grandchildren appeared overwhelmed and began acting out. Shared that she did well to communicate with him and ask what he needed which aided in successfully defusing the situation and allowing him to get his needs met. Shared additional wins of going shopping with her without becoming too overwhelmed, as well as attending jainism. Shared that reconnecting with her jainism community has aided in feeling more supported and positive. Appeared to benefit from group support and discussing skills client has been using. Will continue IOP tx to continue to promote healthy change behaviors, improve consistent use of anxiety management skills, and prevent decompensation. Narrative Note: []
--- NOTE | 2021-04-06 10:15 | BH.SGPN.GN ---
Behaviors/Verbalizations/Mental Status: []Client alert and oriented, neatly dressed and groomed. Eye contact good. Motor activity appropriate. Speech within normal limits. Affect congruent, mood euthymic. Thoughts linear, logical, no signs of hallucinations or delusions. Client Response/Progress/Benefit: []Client responded well to session, attentive and participating in discussion. Participated in discussion of things that can keep people feeling trapped or stuck in life including: avoidance, decreased confidence, give up easily and not try. Group discussed the connection between thoughts, emotions, and behaviors as well as how negative thinking can keep a person stuck. Client attentive during psychoeducation on maintenance cycles. Client able to identify negative thoughts that have kept client stuck which included I can't get my house cleaned. I'll never get this filing done, I'll never get a better job. Appeared to benefit from gaining awareness of how negative thoughts reinforce mental health symptoms and keep people stuck. Will continue IOP tx to reinforce healthy coping skills, challenge negative thoughts and prevent decompensation.
--- NOTE | 2021-04-06 11:15 | BH.SGPN.GN ---
Behaviors/Verbalizations/Mental Status: []Client alert and oriented, neatly dressed and groomed. Eye contact good. Motor activity appropriate. Speech within normal limits. Affect constricted, mood anxious. Thoughts linear, logical, no signs of hallucinations or delusions. Client Response/Progress/Benefit: []Client engaged during activity and discussion. Client worked in small group to apply skills learned to reframe own personal fixed thoughts. Appeared to benefit from suggestions provided by peers and from providing ideas to peers in return. Client identified several fixed thoughts including ?I can?t get my house clean? and ?I?ll never get a better job.? Client practiced reframing these fixed thoughts using growth-mindset strategies. Reframed one of her thoughts and shared ?I can clean my kitchen counter and then move on to another area of the house.? Benefitted from discussing benefits of growth mindset and brainstorming strategies for prompting growth-mindset. Will continue IOP tx to improve mood stability, gain healthy coping skills, and reduce isolative behaviors. Narrative Note: []
--- NOTE | 2021-04-07 09:05 | BH.SGPN.GN ---
Behaviors/Verbalizations/Mental Status: []Client alert and oriented, neatly dressed and groomed. Eye contact good. Motor activity appropriate. Speech tangential. Affect congruent, mood euthymic. Thoughts linear, logical, no signs of hallucinations or delusions. Reviewed client?s symptom tracker, no risk for suicidal ideation, plan, or intent as of 04/07/22 Client Response/Progress/Benefit: C[]Client responded well to session, providing emotional support to peers. Client reports feeling optimistic this morning. Client shared she had a good and relaxing evening last night and that she has been using the coping skills from IOP. Client stated she did not want to come to IOP today, but she used opposite action. Client reports opposite action has been helpful and it reminds client how she feels better after accomplishing things. Client's stressor today is that she has been feeling guilty and ruminating about the past. Client receptive to group support and feedback which client appeared to benefit from. Client will continue IOP tx to prevent decompensation, increase knowledge of healthy coping skills, and reduce isolation. Narrative Note: []
--- NOTE | 2021-04-07 10:25 | BH.SGPN.GN ---
Behaviors/Verbalizations/Mental Status: [] Client Response/Progress/Benefit: [] Pt was an active participant in interactive group discussion and experiential activity. Attentive and provided insight and feedback during psychoeducation on the role and types of supports. Group members were able to identify types of healthy support which included; family, friends, medications, pets, professionals, and healthy hobbies. Also able to identify the difference between healthy and unhealthy support. Listed that healthy support is; non-judgemental, understanding, challenges us, can keep us in check, motivates us, and gives us space when needed. Obstacles that were identified to keep one from seeking or utilizing support included; cognitive distortions, pride, lack of awareness, fear of other's reactions. During experiential activity pt was able to relate and make connections between psychoeducation and the activity. Benefited from increased insight into the benefits of having a balanced support system. Will continue in IOP to prevent decompensation, stabilize anxiety, and increase healthy coping. Narrative Note: []
--- NOTE | 2021-04-07 11:16 | BH.SGPN.GN ---
Behaviors/Verbalizations/Mental Status: []Client alert and oriented, casually dressed and groomed. Eye contact good. Motor activity appropriate. Speech within normal limits. Affect congruent, mood euthymic and anxious. Thoughts linear, logical, no signs of hallucinations or delusions. Client Response/Progress/Benefit: []Client was an active participant throughout AEB contributing to discussion, providing personal examples, and taking notes. Client did well to relate group topic back to her own experiences. Participated in the group activity highlighting the various barriers to effectively utilizing supports and strategies for improving support. Client provided input during discussion on the types of support our supports can provide (emotional, tangible, affirmational, network/belonging, and instructional) and the group listed examples for all types. Client reports wanting to work on increasing emotional supports, noting this will help improve anxiety and her ability to manage her anger when feeling anxious. Client plans to improve this support area by continuing to seek support through episcopal and therapy, as well as creating a list reminding her of her reasons to get out of bed each day. Client seemed to benefit from identifying the type of support and how this support will aid in promoting overall mental wellness. Will continue IOP tx to further improve healthy coping repertoire, continue to improve anxiety management, as well as prevent decompensation. Narrative Note: []
--- NOTE | 2021-04-08 10:15 | BH.SGPN.GN ---
Behaviors/Verbalizations/Mental Status: []Client alert and oriented, neatly dressed and groomed. Eye contact good. Motor activity appropriate. Speech within normal limits. Affect congruent, mood euthymic. Thoughts linear, logical, no signs of hallucinations or delusions. Client Response/Progress/Benefit: []Client engaged in session AEB taking notes, contributing to discussion, and providing examples throughout. Client assisted group with identifying benefits of setting boundaries such as advocating for oneself, less anxiety and stress, and better quality of life. Client also identified personal barriers to setting boundaries such as having a hard time saying no and putting others? needs ahead of her own. Client seemed to benefit from increased awareness of how boundaries impact mental health and the different types of boundaries there are. Progress noted as client reports using healthy coping skills outside of IOP setting. Will continue IOP tx reduce isolative behaviors, improve emotional regulation skills, and improve daily functioning. Narrative Note: []
--- NOTE | 2021-04-08 10:24 | BH.MDN_ITS ---
Multi-Disciplinary Note - Note 45-min Individual Time Started:: 09:05 Date: 04/08/21 Purpose of session/treatment goals addressed:: To provide education on the maintenance cycle for depression as well as teach client about the common cognitive distortions. Other topics included behavioral activation. Eye Contact:: Good Motor Activity:: Appropriate Appearance:: Casual Speech:: Appropriate Mood:: Dysthymic Affect:: Congruent Thoughts:: Linear, Logical, No evidence of hallucinations/delusions noted Staff Interventions:: thought challenging, psychoeducation on: - depression, CBT techniques, strengths perspective, other - reviewed the cognitive distortions and provided a handout on strategies to challenge negative thinking. Client Response:: Client responded well to session, open to meeting with therapist. Client shared she has been using opposite action in the mornings when she does not want to get out of bed. Client reports when she uses opposite action she feels less depressed and more accomplished. Discussed why IOP encourages opposite action and client learned about the depressive maintenance cycle. Client connected with the maintenance cycle and able to see how thoughts and behaviors reinforce depression. Client was introduced to the common cognitive distortions, but did not get to read all of them during session. Emotional reasoning and jumping to conclusions were two of client's most used distortions. Discussed how these impact client including creating self- fulfilling prophecies and reinforcing guilt. Client receptive to reviewing the rest of the distortions for homework and reading the handout given. Risks/Concerns:: Client denies any suicidal ideations, plan, or intent as of 04/08/21. Denies HI Progress Toward Goals/Plan:: Client responding well to IOP tx AEB her active engagement and consistent attendance. Client reports gaining valuable skill from IOP and shared she has been using opposite action a lot in the mornings. Client recently stopped her Wellbutrin due to headaches and met with the psychiatrist today. Client continues to endorse a depressed mood, isolative behaviors, constant worry, inappropriate guilt, and distorted thought patterns. Client will continue IOP tx to prevent decompensation, learn healthy coping skills to improve functioning, and reduce isolative behaviors. Time Stopped:: 09:55
--- NOTE | 2021-04-08 12:12 | PCM.BH.PN ---
Progress Note Progress Note: History of Present Illness/Interim History: [] The patient is a 56-year-old female who was last seen 1 week ago at the [facility] health IOP program. I called the patient's learning disabilities resource teacher to see if he would okay her starting Wellbutrin to augment her treatment of depression. The Wellbutrin had an interaction potentially with the carvedilol she takes but the learning disabilities resource teacher said that it was not contraindicated. The patient started the Wellbutrin XL but says that it gave her severe headache so she stopped taking it after 2 to 3 days and her headaches pretty much resolved. Her mood is still depressed. She does feel though that she is learning valuable skills in the [facility] program. She denies any passive thoughts of and denies any suicidal ideation, homicidal ideation, hallucinations, delusions. She continues to suffer from some of her long Covid symptoms including fatigue and muscle weakness. She continues to worry as she has been a worrier for all of her life. Current Psychiatric Medications: [] BuSpar 15 mg twice a day; Cymbalta 60 mg p.o. daily; Wellbutrin XL discontinued after 2 days. Mental Status Examination: [] The patient is a 56-year-old female who appears older than stated age and is casually dressed and groomed with good hygiene. She is seen wearing a mask due to the pandemic. She has no psychomotor agitation or retardation. Eye contact is good and speech is normal rate and rhythm and fluent with no pressure. Mood is depressed. Affect is full and normal. Thought processes goal-directed and organized. Thought content: There is no evidence of thoughts of , suicidal ideation, homicidal ideation, plan for suicide, hallucinations or delusions. Reality testing is intact. Judgment is intact. Insight is good. Impulsivity is low. Diagnoses: [] 1. Generalized anxiety disorder 2. Major depressive disorder, recurrent, severe without psychosis 3. Urinary retention requiring self-catheterization 4. Traumatic brain injury in 2016 5. History of V. tach with pacemaker cardiac in place 6. Financial, work and primary support issues Plan: [] The patient will continue the IOP program as the structure, support, education and group therapy will hopefully prevent worsening of the patient's symptoms. She felt safe during the interview and if it anytime she does not feel safe she agrees to let us know or go to the emergency room. The risk, options, possible complications and side effects of medications were discussed with the patient and she understands and accepts these. She agrees to try increasing the BuSpar to 20 mg p.o. twice a day to help with her anxiety and depression. Prescription was sent in for BuSpar 5 mg p.o. twice daily. She is to take 1 5 mg in 115 mg for a total of 20 mg twice daily. She will continue to follow-up with her outpatient medical and psychiatric providers.
--- NOTE | 2021-04-13 09:05 | BH.SGPN.GN ---
Behaviors/Verbalizations/Mental Status: [] Eye contact is good. Motor activity is appropriate. Appearance is casual. Speech is Appropriate. Mood is depressed/irritable. Affect is flat. Thoughts are linear and logical. No evidence of psychosis. Reviewed daily check in sheet and no reports of suicidal ideations or intent. Client Response/Progress/Benefit: [] Pt was an active participant in group discussion. Attentive. Provided appropriate feedback. Emotion for today is stressed. Reports holiday stress and elaborated on her stressors and how they impact her mental health. Increased irritability, ruminations, and anxiety. Overwhelming at times which has impact some social functions. Mental issa wins included spending time with support. Group provided feedback and some suggestions for dealing with holiday stress which was beneficial. Will continue in IOP to prevent decompensation, increase healthy coping, and improve functioning. Narrative Note: []
--- NOTE | 2021-04-13 10:10 | BH.SGPN.GN ---
Behaviors/Verbalizations/Mental Status: []Client alert and oriented, casually dressed and groomed. Eye contact good. Motor activity appropriate. Speech within normal limits. Affect congruent, mood euthymic. Thoughts linear, logical, no signs of hallucinations or delusions. Client Response/Progress/Benefit: []Client was an engaged participant AEB contributing to discussion and staying engaged with group activity. Connected with the topic of pitfalls and helped the group discuss barriers that keep them from choosing a healthier path to mental wellness such as pitfalls. Group worked together to identify examples of personal pitfalls which included: lashing out, jumping to conclusions, social media, isolation and addictive behaviors. Client shared personal pitfalls as: no patience, self-doubt, fear of change, and procrastination. Engaged during the activity by offering group members encouragement and problem solving techniques. Client benefited from group as learned personal barriers from improving mental health. Client will continue IOP to increase the use of healthy coping skills, reduce negative thinking, and prevent decompensation.
--- NOTE | 2021-04-13 11:10 | BH.SGPN.GN ---
Behaviors/Verbalizations/Mental Status: []Client alert and oriented, neatly dressed and groomed. Eye contact good. Motor activity appropriate. Speech within normal limits. Affect congruent, mood euthymic. Thoughts linear, logical, no signs of hallucinations or delusions. Client Response/Progress/Benefit: []Client engaged throughout AEB client actively listening, taking notes, and at times contributing to discussion. Client completed worksheet identifying personal pitfalls impacting mental health progress. Client identified the following pitfalls: fear of failure, fear of change, lack of patience, self-doubt, and procrastination. Group brainstormed different coping skills to help manage pitfalls. Client selected fear of failure as the pitfall client would like to overcome. Client plans to work on this by using positive self-talk and challenging distorted thoughts. Benefited from identifying personal pitfalls and strategies to overcome these pitfalls. Will continue IOP tx to reduce isolative behaviors, improve daily functioning, and increase mood stability. Narrative Note: []
--- NOTE | 2021-04-14 09:00 | BH.SGPN.GN ---
Behaviors/Verbalizations/Mental Status: [] Eye contact is good. Motor activity is appropriate. Appearance is casual. Speech is Appropriate. Mood is depressed/irritable. Affect is congruent. Thoughts are linear and logical. No evidence of psychosis. Reviewed daily check-in tracker and no reports of suicidal ideations or intent. Client Response/Progress/Benefit: [] Pt was an active participant in group discussion. Attentive. Provided appropriate feedback. Daily symptom tracker notes 2/5 for depression, anxiety, and irritability. Emotion for today is stressed. Mental health wins include setting boundary with support. Talked about close support that can often be judgemental which can make the holidays very stressful and lead he to be irritable. While support is frustrating she does appreciate them and understands they are of importance to her. She talked at length regarding her perceived struggle with patience. She is able to be patient in certain situations (mainly work) however during day-today interactions struggles. Insight that she has the overall tools however would benefit from applying them more consistently. Progress noted per pt report. Benefited from group support, encouragement, and feedback. Will continue in IOP to prevent decompensation, improve functioning, and learn healthy coping skills. Narrative Note: []
--- NOTE | 2021-04-14 10:15 | BH.SGPN.GN ---
Behaviors/Verbalizations/Mental Status: []Client alert and oriented, casually dressed and groomed. Eye contact good. Motor activity appropriate. Speech within normal limits. Affect congruent, mood anxious and euthymic. Thoughts linear, logical, no signs of hallucinations or delusions Client Response/Progress/Benefit: [] Client was an engaged participant AEB providing input to discussion and taking notes throughout. Connected with group topic of perspective and the impacts of one?s perspective on mental health. Client worked with the group to identify impact of a negative perspective which included: not believing treatment will work, giving up, negative self-talk, and unhealthy coping. Client stated she can relate to the idea that humans tend to ?revert to the negative?. Client appeared to benefit from increasing understanding of mental health benefits of a positive perspective which included: improved resilience, willing to try new things, able to cope with setbacks, and improved self-esteem. Progress noted as client is more interactive during group sessions and reports application of skills outside group environment. Will continue IOP tx to reduce anxiety, improve self-care, and continue to promote healthy communication with supports. Narrative Note: []
--- NOTE | 2021-04-14 11:15 | BH.SGPN.GN ---
Behaviors/Verbalizations/Mental Status: []Client alert and oriented, neatly dressed and groomed. Eye contact good. Motor activity appropriate. Speech within normal limits. Affect congruent, mood euthymic and anxious. Thoughts linear, logical, no signs of hallucinations or delusions Client Response/Progress/Benefit: []Pt did well to remain attentive throughout session, AEB providing input throughout discussion. Engaged as group reviewed the importance of taking a strengths-based approach in order to foster a healthier perspective and better manage mental health symptoms. Completed strengths exploration worksheet and identified personal strengths to include: humor, persistence, love, empathy, common sense, honesty, and assertiveness. Pt reported she will build her strengths by working on increasing self-control and patience. Benefited from identifying personal strengths and strategies for enhancing use of identified strengths. Pt demonstrating progress AEB her increased insight. Pt to continue IOP tx to improve emotional regulation skills, reduce isolation, and improve overall functioning. Narrative Note: []
--- NOTE | 2021-04-15 11:15 | BH.SGPN.GN ---
Behaviors/Verbalizations/Mental Status: []Client alert and oriented, casually dressed and groomed. Eye contact good. Motor activity appropriate. Speech within normal limits. Affect congruent, mood euthymic. Thoughts linear, logical, no signs of hallucinations or delusions Client Response/Progress/Benefit: []Client responded well to session AEB contributing to discussion and completing the resilience worksheet provided. Client participated in the discussion of how each resiliency component can help increase personal resiliency and worked cooperatively with group to identify strategies to enhance each of the components discussed. Client identifying doing well with the resilience component of accepting that change is a part of living. Went on to reflect wanting to improve in the personal resilience component of keeping things in perspective and avoiding seeing problems as insurmountable problems. Client stated she wants to work on this by reminding herself that rough times will pass. Client seemed to benefit from discussing strategies for improving personal resilience. Will continue IOP tx to reduce intensity of symptoms, improve emotional regulation skills, and increase motivation. Narrative Note: []
--- NOTE | 2021-04-15 15:08 | BH.MDN ---
Multi-Disciplinary Note - Note 60-min Individual Time Started:: 08:50 Date: 04/15/21 Purpose of session/treatment goals addressed:: to address goal #1 of client's tx plan. Another goal was to help client learn how to set more realistic goals that will reduce anxiety and improve productivity. Eye Contact:: Good Motor Activity:: Appropriate Appearance:: Casual Speech:: Tangential Mood:: Anxious Affect:: Congruent Thoughts:: Circular, No evidence of hallucinations/delusions noted Staff Interventions:: thought challenging, psychoeducation on: - stress, CBT techniques, strengths perspective, goal setting - identify five priorities to focus on today to reduce stress. Client Response:: Client responded well to session, open to meeting with therapist. Client reports feeling very stressed today as client has a much to do before [place]. Client also has a sleep study scheduled for tomorrow which is adding to client's stress. Through processing client's stress, client able to recognize that her expectations for herself around the holidays are unrealistic. Client willing to break down these stressors, set goals for herself that are realistic, and identify who can help her. Client identified her top five priorities to accomplish today and reported that after organizing her to-do list, she felt less anxious. Client also learned a new way to cope with stress (the 4 A's) avoid, adapt, accept, and adjust. Client used these strategies to identify what tasks are top priority and to increase awareness of how client's expectations increase stress. Risks/Concerns:: Client denies any suicidal ideations, plan, or intent as of 04/15/21. Denies any HI. Progress Toward Goals/Plan:: Client responding well to IOP tx AEB her active engagement and consistent attendance. Client reports gaining valuable skill from IOP and shared she benefits from working through her stressors. Client reports application of coping skills outside of IOP, but her symptoms are still ongoing. Client continues to endorse constant worry, inappropriate guilt, irritability, lack of motivation and energy, and distorted thought patterns. Client?s depressed mood is beginning to resolve. Client will continue IOP tx to improve daily functioning, improve mood stability, and reduce intensity of anxiety. Time Stopped:: 09:55
--- NOTE | 2021-04-21 09:05 | BH.SGPN.GN ---
Behaviors/Verbalizations/Mental Status: []Eye contact is good. Motor activity is appropriate. Appearance is casual. Speech is Appropriate. Mood is dysthymic, anxious. Affect is congruent. Thoughts are linear and logical. No evidence of psychosis. Reviewed daily check in sheet and no reports of suicidal ideations or intent. Client Response/Progress/Benefit: []Pt responded well to session AEB listening attentively to peers and sharing thoughts with group. Reported her current emotion is ?overwhelmed? as she had several experiences over the holiday weekend in which she was confronted with navigating family stress. Discussed feeling frustrated by this as well as struggling to sleep the previous night, further impacting her mood. Pt shared feeling unsure of what she may need today to reduce her anxiety and improve her overall mood. Receptive of discussion reviewing impact of external stressors on feeling ?out of control? and suggestions for improving her internal locus of control today. Connected with idea of taking time to engage in self-care and challenge herself to focus on remaining in the present moment. Identified current positives as not escalating the family stress over the weekend and making a dessert for one of the events. Appeared to benefit from supportive group environment and suggestions provided. Pt to continue IOP to continue practicing challenging negative thinking patterns, further improve mood and stress management, as well as promote healthy conflict resolution skills. Narrative Note: []
--- NOTE | 2021-04-21 10:10 | BH.SGPN.GN ---
Behaviors/Verbalizations/Mental Status: []Client alert and oriented, casually dressed and groomed. Eye contact good. Motor activity appropriate. Speech within normal limits. Affect congruent, mood euthymic. Thoughts linear, logical, no signs of hallucinations or delusions. Client Response/Progress/Benefit: []Client responded well to session, attentive and providing input throughout. Participated in discussion of things that can keep people feeling trapped or stuck in life including: avoidance, unhealthy coping, isolation, self-harm, and surrounding self with toxic people. Group discussed the connection between thoughts, emotions, and behaviors as well as how negative thinking can keep a person stuck. Client attentive during psychoeducation on maintenance cycles. Client able to identify negative thoughts that have kept client stuck which included: I failed my family. What's wrong with me? I can't do anything right. What is wrong with me? Appeared to benefit from gaining awareness of how negative thoughts reinforce mental health symptoms and keep people stuck. Will continue IOP tx to prevent decompensation, increase healthy coping skills, and continue challenging negative thoughts.
--- NOTE | 2021-04-21 11:10 | BH.SGPN.GN ---
Behaviors/Verbalizations/Mental Status: []Client alert and oriented, casually dressed and groomed. Eye contact good. Motor activity appropriate. Speech within normal limits. Affect congruent, mood calm. Thoughts linear, logical, no signs of hallucinations or delusions. Client Response/Progress/Benefit: []Client responded well to session, contributing to discussion and completed worksheet. Client identified a negative thought that has kept client stuck. Client's thought was I just can?t do anything right.? Client reported when client thinks this way, client isolates, stays in bed, does not accomplish tasks, and ?I feel worse.? Client worked to reframe the thought by finding more rational, realistic ways to look at the thought and then processed within group setting. Client reframed the thought to ?it?s okay if I can?t get it all done today, I can do one thing today.? Client stated she will work on telling herself thoughts are thoughts not facts to combat distortions. Client appeared to benefit from practicing challenging negative thinking. Client will continue IOP tx to reduce isolation, improve daily functioning, and increase motivation. Narrative Note: []
--- NOTE | 2021-04-22 09:05 | BH.SGPN.GN ---
Behaviors/Verbalizations/Mental Status: []Client alert and oriented, casually dressed and groomed. Eye contact good. Motor activity appropriate. Speech within normal limits. Affect congruent, mood calm. Thoughts linear, logical, no signs of hallucinations or delusions. Reviewed client?s symptom tracker, no risk for suicidal ideation, plan, or intent as of 04/22/21 Client Response/Progress/Benefit: []Client responded well to session, providing supportive statements to peers. Client reports feeling blah this morning, but per client's daily symptom tracker, client reports her mood has generally been better. Client had several mental health wins this morning including doing her dishes, successfully making it through [employer] without getting angry, and reading affirmations. Client's stressor today is that she is missing going to alevism because services are closed this week. Discussed alternative options and client is considering attending another a[facility]ism this week. Appeared to benefit from reflecting on her wins and connecting with peers. Progress noted in client's increased motivation. Will continue IOP tx to increase emotional regulation skills, improve daily functioning, and reduce anxiety. Narrative Note: []
--- NOTE | 2021-04-22 10:10 | BH.SGPN.GN ---
Behaviors/Verbalizations/Mental Status: [] Eye contact is good. Motor activity is appropriate. Appearance is casual. Speech is Appropriate. Mood is anxious. Affect is congruent. Thoughts are linear and logical. No evidence of psychosis. Client Response/Progress/Benefit: [] Pt was an active participant in group discussion. Attentive during psychoeducation. Pt provided insight and was engaged during interactive discussion on the definition of anxiety, what distinguishes normal anxiety vs anxiety disorder, and the benefits of anxiety. Also participated in discussion on the physiological symptoms, fearful thoughts, and safety behaviors related to anxiety. Pt was able to identify the 3 most significant physiological symptoms of anxiety that she experiences which included; racing thoughts, blurry focus, heart pounding, and SOB. Benefited from psychoeducation on anxiety as well as personal physiological signs of anxiety. Will continue in IOP to prevent decompensation, increase healthy coping, and improve functioning. Narrative Note: []
--- NOTE | 2021-04-23 10:10 | BH.SGPN.GN ---
Behaviors/Verbalizations/Mental Status: []Client alert and oriented, casually dressed and groomed. Eye contact good. Motor activity appropriate. Speech within normal limits. Affect congruent, mood euthymic. Thoughts linear, logical, no signs of hallucinations or delusions. Client Response/Progress/Benefit: [] Pt was an active participant in group discussion and activity. Attentive during psychoeducation on what it means to take action. Group discussed barriers to taking action as well as what it takes to finally overcome the fear associated with change. Pt identified symptoms pt want to take gain control over which included fear of change, self-criticism, fear of disappointing others, and self of self.? Increased insight into what could be holding pt back from mental wellness and the importance of taking action on symptoms and obstacles rather than avoiding or ignoring. Will continue in IOP tx to reduce rumination, improve daily functioning, and increase application of healthy coping skills. Narrative Note: []
--- NOTE | 2021-04-23 11:10 | BH.SGPN.GN ---
Behaviors/Verbalizations/Mental Status: []Client alert and oriented, neatly dressed and groomed. Eye contact good. Motor activity appropriate. Speech within normal limits. Affect congruent, mood euthymic. Thoughts linear, logical, no signs of hallucinations or delusions. Client Response/Progress/Benefit: []Client responded well to session, taking notes and participating in worksheet discussion. Client set a goal to gain control over negative thinking and self-talk. Client plans to work on this by working on identifying and challenging distortions using a thought log. Client reports she will need to set a time to write out her thoughts and challenge them and to use self-care after working on her thought log to help accomplish this goal. Appeared to benefit from identifying a small goal to benefit mental health. Progress noted as client reports increased use of opposite action, but she continues to struggle with challenging negative thinking that reinforces anxiety and depression. Will continue IOP tx to combat distorted thought patterns, improve mood stability, and increase knowledge of healthy coping skills. Narrative Note: []
--- NOTE | 2021-04-23 11:10 | BH.SGPN.GN ---
Behaviors/Verbalizations/Mental Status: []Client alert and oriented, casually dressed and groomed. Eye contact good. Motor activity appropriate. Speech within normal limits. Affect congruent, mood euthymic. Thoughts linear, logical, no signs of hallucinations or delusions. Client Response/Progress/Benefit: []Client able to provide input to discussion when prompted, appeared to listen attentively to peers. Reviewed safety behaviors she engages in that reinforce anxiety. Client identified spending money, avoidance and isolation as safety behaviors she uses to make anxiety go away. Attentive during psychoeducation on healthy coping skills and their impact on mental health wellness. The group worked together to brainstorm anxiety reduction strategies. Client reported will practice breathing skills and walking as ways to help manage his anxious symptoms. Client seemed to benefit from increased repertoire of anxiety reduction skills. Client will continue IOP tx to continue to continue to practice healthy coping skills, challenge negative thoughts and prevent decompensation.
--- NOTE | 2021-04-23 14:35 | BH.MDN_ITS ---
Multi-Disciplinary Note - Note 45-min Individual Time Started:: 09:10 Date: 04/23/21 Purpose of session/treatment goals addressed:: To work on identifying and challenging distortions using thought logs. Another goal was to review progress towards goals. Eye Contact:: Good Motor Activity:: Appropriate Appearance:: Casual Speech:: Tangential Mood:: Euthymic Affect:: Congruent Thoughts:: Linear, Logical, No evidence of hallucinations/delusions noted Staff Interventions:: thought challenging, CBT techniques, strengths perspective, goal setting, taught coping skills Client Response:: Client responded well to session, open to meeting with therapist. Client reports her sleep study went well and she is having a better week this week. Client stated she accomplished all the tasks on her to-do list from last session. Client reports she feels good about being productive, but she still struggles with motivation. Through further exploration, client able to see how her underlying thought patterns led to feeling overwhelmed and shutting down. Client receptive to learning how to use a thought log. Practiced client's recent negative thought of I'll never get things done. Client identified emotions that result from this thought including loneliness, depressed, anxious, and overwhelmed. Client labeled this thought as the all or nothing distortion. Client then reframed the thought saying, I can get things done and then listed all the things she did last week. Client will identify and reframe two thoughts for homework using her thought log and call her old therapist. Risks/Concerns:: Client denies any suicidal ideations, plan, or intent as of 04/23/21. Denies any HI. Progress Toward Goals/Plan:: Client responding well to IOP tx AEB her consistent attendance and self-report of increased functioning at home. Client reports accomplishing ?all my goals from last week.? Client has also increased self- awareness since starting IOP per her report. Client continues to endorse constant worry, inappropriate guilt, irritability, lack of motivation and energy, and rumination, especially at night. Client shared ?I?m always negative? which impacts client?s outlook on tasks and relationships. Client will continue IOP tx to reduce distorted thought patterns that reinforce anxiety and depression and to improve daily functioning. Time Stopped:: 09:53
== END 2021-04-24 23:59 ==
LOC: BHIOP 09:00
PROVIDERS: PCP Student in an Organized Health Care Education/Training Program; Referring Provider Psychiatry & Neurology Psychiatry; Visit Provider Psychiatry & Neurology Psychiatry
DX: F41.1 Generalized anxiety disorder (principal); F33.2 Major depressive disorder, recurrent severe without psychotic features; R33.9 Retention of urine, unspecified; Z87.820 Personal history of traumatic brain injury; Z95.0 Presence of cardiac pacemaker; Z79.899 Other long term (current) drug therapy
CPT/HCPCS: S9480; 90832; 90834; 90837; 90853

== ENCOUNTER → 2021-04-16 19:49 | Outpatient (CLI) | payer OTHER, SELFPAY | PROVIDERS: PCP Student in an Organized Health Care Education/Training Program; Referring Provider Psychiatry & Neurology Sleep Medicine; Visit Provider Psychiatry & Neurology Sleep Medicine | DX: G47.33 Obstructive sleep apnea (adult) (pediatric) (principal) | CPT/HCPCS: 95811 ==

== ENCOUNTER 2021-04-28 09:00 | Outpatient (RCR) | payer OTHER, SELFPAY ==
[2021-04-25 00:38] VITALS: BP 142/98; PULSE 69
--- NOTE | 2021-04-28 11:42 | BH.COMM ---
Communication Note - Communication with Client Communication Note: Client is out this week due to illness. Client reported plan to take a COVID test yesterday, 04/27/21. IOP staff will follow up on status of test to determine next steps and protocol.
--- NOTE | 2021-05-05 09:05 | BH.SGPN.GN ---
Behaviors/Verbalizations/Mental Status: []Eye contact is good. Motor activity is appropriate. Appearance is casual. Speech is Appropriate. Mood is euthymic, anxious. Affect is congruent. Thoughts are linear and logical. No evidence of psychosis. Reviewed daily check in sheet and no reports of suicidal ideations or intent Client Response/Progress/Benefit: []Pt responded well to session AEB pt listening attentively to peers and willing to process. Pt reported she is feeling ?anxious? today as she is beginning to feel worried about her upcoming return to work. Shared that she had be scheduled to return last week but had tested positive for COVID and is therefore unable to return until released by her doctor. Shared she is excited but anxious to go back as she has not worked since January and several changes have been made in the meantime. 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 Went on to share that she has been struggling with self-care over that past several days due to being sick and being isolated as a result. Expressed plans to reach out to her mother and call her grandchildren to help reduce feelings of loneliness. Pt continues to make progress with insight, however, continues to struggle with internal motivation when supports are unavailable. Seemed to benefit from supportive group environment and identifying skills to help reduce anxiety about returning to work. Pt to continue IOP to continue promote self-care, further improve anxiety management as pt returns to work, as well as prevent decompensation. Narrative Note: []
--- NOTE | 2021-05-05 10:10 | BH.SGPN.GN ---
Behaviors/Verbalizations/Mental Status: []Client alert and oriented, casually dressed and groomed. Eye contact good. Motor activity appropriate. Speech within normal limits. Affect congruent, mood euthymic. Thoughts linear, logical, no signs of hallucinations or delusions. Client Response/Progress/Benefit: []Pt was well engaged in group AEB taking notes, providing input, and listening attentively throughout. Attentive during psychoeducation and discussed the importance of goal-setting with the group. Group identified potential benefits of having goals include: giving direction, giving purpose, improving mood, and better relationships. Group also worked together to identify barriers to goal-setting which included; negative self-talk, fear of change, unrealistic expectations, and fear of failure. Pt reported personal barriers for her are motivating herself and following through with goals. Benefited from increased awareness of benefits and barriers to goal-setting. Pt missed a week due to COVID. Will continue IOP tx to increase mood stability, increase motivation, and improve daily functioning. Narrative Note: []
--- NOTE | 2021-05-05 11:15 | BH.SGPN.GN ---
Behaviors/Verbalizations/Mental Status: []Client alert, oriented, casually dressed and groomed. Eye contact good. Motor activity appropriate. Speech within normal limits. Affect congruent, mood euthymic. Thoughts linear, logical, no signs of hallucinations or delusions. Client Response/Progress/Benefit: []Pt was a active participant in group discussions and activities. Engaged in activity. Was willing to complete the goal setting worksheet provided. Pt identified a SMART goal for the next week is: Spend 15-20 minutes daily on one area of her kitchen for one week. Pt reported this would benefit her mental health by decreasing clutter, don't waste food and easier to food prep with counters clean. Identified negative thoughts and procrastination as potential barriers to completing this goal. Pt able to identify several solutions, such as identifying daily accomplishments and making a list, that can help overcome identified barriers. Benefited from group by being able to utilize SMART formula to create a goal. Pt to continue IOP to continue use of healthy coping, challenge negative thoughts and prevent decompensation. Narrative Note: []
--- NOTE | 2021-05-06 08:12 | BH.MTP_ITS ---
Treatment Plan Review Date of Admission:: 04/01/21 Date of Treatment Plan Review:: 05/04/21 Admitting Diagnoses:: Generalized anxiety disorder; Major depressive disorder, recurrent, severe without psychosis F 33.2 Current Diagnoses:: Generalized anxiety disorder; Major depressive disorder, recurrent, severe without psychosis F 33.2 Patient's Response to Treatment:: Pt has responded well to treatment AEB pt consistently attending IOP sessions and her reduction of DSM-5 scores by 30% since admission. Pt contributes well during individual sessions and listens and takes notes during group sessions. Pt applies coping skills outside of IOP and r eports she has been feeling better most days. Pt reports she has been setting and accomplishing small goals which has helped pt increase motivation. Status of Current Problems and Symptoms: Pt recently missed a week of IOP due to illness which impacted client's motivation at home. Pt continues to report moderate anxiety, ruminations, and catastrophizing that pt is working on reducing. Pt reports ongoing issues with sleep that has impacted client's ability to attend IOP a few times. Pt also has stressors of finances and returning to work. Problem #1 Problem Name:: Intensity, duration, and frequency of anxiety impairing functioning Status of Goals:: Objective 1- complete with ongoing work encouraged. Pt?s DSM-5 scores for anxiety have decreased by 30% since admission. Pt can identify triggers and warning signs for anxiety and reports utilizing grounding skills and affirmations. Pt?s DSM-5 scores are still moderate in severity. Objective 2- in progress. Pt is working on catching her catastrophizing and jumping to conclusion distortions and challenging these. Team Recommendations:: Treatment team recommends pt continue to work on self- care strategies and to further combat catastrophizing thoughts that reinforce anxiety. Pt also does well with breaking down stressors and prioritizing tasks to manage anxiety. Problem #2 Problem Name:: Guilt, low motivation, negative self-talk, and passive thoughts of Status of Goals:: Objective 1- complete with ongoing work encouraged. Pt?s DSM-5 scores for depression have decreased by 17% since admission. Pt has been using opposite action, thought challenging, and affirmations to manage depression. Pt continues to struggle with self-motivation and lack of energy. Objective 2- In progress. Pt recently got a journal to keep track of her accomplishments and mental health wins. Pt will be using this to increase self-compassion and positive self-talk. Team Recommendations:: Treatment team recommends that pt continue to work on setting small goals, increasing self-accountability, and exploring potential volunteer or career changes that will help client feel valued.
--- NOTE | 2021-05-06 09:05 | BH.SGPN.GN ---
Behaviors/Verbalizations/Mental Status: []Client alert and oriented, casually dressed and groomed. Eye contact good. Motor activity appropriate. Speech within normal limits. Affect congruent, mood euthymic. Thoughts linear, logical, no signs of hallucinations or delusions. Reviewed client?s symptom tracker, no risk for suicidal ideation, plan, or intent as of 05/06/21 Client Response/Progress/Benefit: []Client responded well to session, providing emotional support and attentive. Client reports feeling accomplished this morning and shared that she did the dishes and vacuumed last night. Client also went out to lunch with her mother and bought a journal yesterday. Client reports plan to use the journal to write down her accomplishments and mental health wins. Client stated her stressor today is that she is having sleep issues, which makes it harder to get up for IOP. Client reported she had to use opposite action today to get out of bed. Appeared to benefit from reflecting on her use of coping skills. Will continue IOP tx to promote gains, increase work-related functioning, and improve mood stability. Narrative Note: []
--- NOTE | 2021-05-06 10:05 | BH.SGPN.GN ---
Behaviors/Verbalizations/Mental Status: []Client alert and oriented, casually dressed and groomed. Eye contact good. Motor activity appropriate. Speech within normal limits. Affect congruent, mood anxious. Thoughts linear, logical, no signs of hallucinations or delusions. Client Response/Progress/Benefit: []Client responded well to session AEB client contributing to session and listening attentively to others. Client participated in group discussion introducing the topic of self care. Discussed that though self care is not selfish, she has a hard time practicing it. Group identified myths about self care, such as self care is selfish, takes too much time, has to be fun, and has to be earned.Client discussed these myths and identified their invalidity, stating that self care is difficult for her to fit into her schedule but not impossible. Client gave the example of cleaning her dishes as self care that is not fun in the moment, but feels good afterward. Client appeared to benefit from increased knowledge of the importance and benefits of self care. Will continue IOP treatment to increase self care usage and decrease negative self talk. Narrative Note: []
--- NOTE | 2021-05-06 11:13 | BH.SGPN.GN ---
Behaviors/Verbalizations/Mental Status: [] Client alert and oriented, casually dressed and groomed. Eye contact good. Motor activity appropriate. Speech within normal limits, at times tangential. Affect congruent and bright, mood euthymic. Thoughts linear, logical, no signs of hallucinations or delusions. Client Response/Progress/Benefit: [] Client engaged participant AEB taking notes and providing input and examples throughout. Attentive during group discussion on the various areas of self-care and made connections with the activity. Client completed worksheet which identified current self-care practices and what self-care activities client wants to start using. Client shared currently doing well in self-care areas of physical via attending medical check-ups and spiritual via connecting with her pentecostal. Client selected physical self-care via establishing a better diet and sleep routine as the areas of self-care client would like to improve. Appeared to benefit from completing the self-care evaluation and gaining insights into current self-care practices, as well as identifying areas in which she would like to improve upon. Will continue IOP tx to increase application of healthy coping skills, further improve personal accountability, and transition back to full-time employment. Narrative Note: []
--- NOTE | 2021-05-08 08:24 | BH.COMM ---
Communication Note - Communication with Client Communication Note: Pt cancelled today due to not sleeping well last night. Pt will continue treatment next week.
--- NOTE | 2021-05-12 10:05 | BH.SGPN.GN ---
Behaviors/Verbalizations/Mental Status: []Client alert and oriented, casually dressed and groomed. Eye contact good. Motor activity appropriate. Speech within normal limits. Affect congruent, mood anxious. Thoughts linear, logical, no signs of hallucinations or delusions. Client Response/Progress/Benefit: []Client responded well to session AEB client contributing to group discussion and listening attentively to others. Group discussed coping skills, reviewing examples of unhealthy coping, and why we use them. Client participated in experiential activity, and was attentive throughout group processing, showing an understanding of the importance of internal coping skills and external supports. Client discussed the importance of having a foundation of internal coping skills to maintain stability. Appeared to benefit from increased knowledge of internal coping skills and external supports, as well as increased self awareness. 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 Narrative Note: []
--- NOTE | 2021-05-12 11:10 | BH.SGPN.GN ---
Behaviors/Verbalizations/Mental Status: []Client alert and oriented, casually dressed and groomed. Eye contact good. Motor activity appropriate. Speech within normal limits. Affect congruent, mood dysthymic. Thoughts linear, logical, no signs of hallucinations or delusions. Client Response/Progress/Benefit: []Client responded well to session, taking notes and contributing at times. Group discussed the different categories of coping skills which included distraction, emotional release, grounding, self-love, and thought challenging. Client's coping skill menu included: cleaning and organizing, attending tenriism, affirmations, keeping track of her wins, and using thoughts are thoughts not facts. Appeared to benefit from increasing repertoire of healthy coping skills. Progress noted in client?s report of using opposite action after a difficult weekend. Will continue tx to combat distorted thoughts that increased over the weekend and to improve overall mood stability. Narrative Note: []
--- NOTE | 2021-05-12 13:13 | BH.MDN ---
Multi-Disciplinary Note - Note 45-min Individual Time Started:: 09:10 Date: 05/12/21 Purpose of session/treatment goals addressed:: To work on goal #2 of client's treatment plan. Eye Contact:: Good Motor Activity:: Appropriate Appearance:: Casual Speech:: Appropriate Mood:: Anxious, Dysthymic Affect:: Constricted Thoughts:: Linear, Logical, No evidence of hallucinations/delusions noted Staff Interventions:: thought challenging, CBT techniques, strengths perspective, other - discussed DBT skills including riding the wave and gave client homework to write letters to self to help combat distortions. Client Response:: Client responded well to session, open to meeting with therapist. Client shared this was a really tough weekend. Client stated she became depressed on night and throughout the weekend she had a difficult time getting out of bed. Discussed triggers and client could identify being frustrated about the length of the pandemic, family illness, and negative self-talk. Client shared she gets frustrated with having to deal with this stuff and getting tired of it. Receptive to thought challenging and learning about riding the wave. Client connected with these skills and shared that challenging her perspective continues to be a barrier for her. Client stated she gets swept away by her emotions and it leads to client catastrophizing and shutting down. Client able to use thought challenging and identify positives over the weekend and give herself credit for what she did do to support her mental health. Client also receptive to writing a letter to depressed self and her anxious self when she is in a more balanced mindset, so client can help herself challenge her thoughts when not at IOP. Client to work on this for homework. Risks/Concerns:: Client denies any suicidal ideations, plan, or intent as of 05/12/21. Progress Toward Goals/Plan:: Client continues to respond well to IOP tx AEB her reduced DSM-5 scores of 30% since admission. Client reports feeling anxious about returning to work and maintaining the progress made in IOP. Client continues to endorse ruminations, depressive symptoms (although resolving) and negative self-talk. Discussed aftercare options including IOP aftercare and outpatient counseling with her previous counselor at [facility]. Client given homework to write a letter to herself and to begin working on her maintenance plan. Will continue IOP tx to promote mood stability, reduce ruminations, and increase work-related functioning. Time Stopped:: 09:54
--- NOTE | 2021-05-13 09:00 | BH.SGPN.GN ---
Behaviors/Verbalizations/Mental Status: []Eye contact is good. Motor activity is appropriate. Appearance is casual. Speech is Appropriate. Mood is euthymic. Affect is congruent. Thoughts are linear and logical. No evidence of psychosis. Reviewed daily check in sheet and no reports of suicidal ideations or intent. Client Response/Progress/Benefit: []Client was attentive and engaged throughout group session. Client identified some of last week and past weekend she struggled with getting out of bed. Client reported she used opposite action to get out of bed on Tuesday and move around. Client stated she noticed laying around started to increase her negative thinking so is glad she made herself get moving. Client identified mental health positive as completing thank you notes she had been putting off for awhile. client stated current stressor is being tired of covid and the isolation due to covid. Identified feeling optimistic today. Client appeared to benefit from supportive group environment. Will continue IOP to continue use of healthy coping, challenge negative thoughts and prevent decompensation. Narrative Note: []
--- NOTE | 2021-05-13 11:08 | BH.SGPN.GN ---
Behaviors/Verbalizations/Mental Status: []Client alert and oriented, casually dressed and groomed. Eye contact good. Motor activity appropriate. Speech within normal limits. Affect congruent, mood dysthymic and anxious. Thoughts linear, logical, no signs of hallucinations or delusions. Client Response/Progress/Benefit: []Client engaged in session AEB listening attentively, working collaboratively with others, and providing input throughout discussions. Client was an active participant in challenge activity and did well to use calming and healthy communication skills in the moment to help group with problem solving while in high stress situations. Client remained attentive during discussion about the 4 A's of managing stress and expressed connecting with the various benefits of each. Shared she would like to work on using the skill of accept to recognize the stressors she does have and be more open to accepting help. Discussed she has begun to accept her mental health as a long-term stressor and has been more open to seeking help via therapy, which client indicates as progress. Client seemed to benefit from increased awareness of the impact of stress on mental health and increasing repertoire of stress management strategies. Will continue IOP tx to continue to promote thought challenging and use of self-care skills, as well as further improve social support. Narrative Note: []
--- NOTE | 2021-05-14 09:00 | BH.SGPN.GN ---
Behaviors/Verbalizations/Mental Status: [] Eye contact is good. Motor activity is appropriate. Appearance is casual. Speech is Appropriate. Mood is depressed/irritable. Affect is congruent. Thoughts are linear and logical. No evidence of psychosis. Reviewed daily check in sheet and pt denies any suicidal ideations. Client Response/Progress/Benefit: [] Pt was an active participant. Attentive. Provided appropriate feedback. Mental health wins included self-care last evening. She discussed attending an event rather than isolating and how this was beneficial. She also discussed setting boundaries and communicating assertively with support. Pt's car has been in the shop for several weeks which has impacted her mental health. She feels stuck and does not have the freedom to leave at her will. She also has to taxi her spouse around which is increasing irritability and has led to conflict. Group reframed this as an opportunity to work on internal skills and assertive communication with spouse which she was responsive. Progress noted. Benefited from group support, encouragement, and feedback. Will continue in IOP to maintain progress, increase healthy coping, and stabilize mood. Narrative Note: []
--- NOTE | 2021-05-14 10:05 | BH.SGPN.GN ---
Behaviors/Verbalizations/Mental Status: [] Client alert and oriented, casually dressed and groomed. Eye contact good. Motor activity appropriate. Speech within normal limits. Affect congruent, mood euthymic. Thoughts linear, logical, no signs of hallucinations or delusions. Client Response/Progress/Benefit: []Client responded well to session AEB contributing to group discussion and listening attentively to others. Client participated in experiential activity illustrating emotions that come with change, and was attentive throughout group processing. Client connected with change feeling overwhelming, stating that making change can be time-limited and like it needs to happen all at once. Clinician provided psychoeducation on the stages of change, and led group discussion of emotions associated with each. Client appeared to benefit from increased knowledge of stages of change and self awareness of emotions surrounding change. 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 Narrative Note: []
--- NOTE | 2021-05-14 11:16 | BH.SGPN.GN ---
Behaviors/Verbalizations/Mental Status: []Client alert and oriented, casually dressed and groomed. Eye contact good. Motor activity appropriate. Speech within normal limits. Affect congruent, mood euthymic and anxious. Thoughts linear, logical, no signs of hallucinations or delusions. Client Response/Progress/Benefit: []Client responded well to session, attentive and providing input and personal examples throughout. Did well to process activity and work with group to relate the strategies used to overcome barriers in the activity to managing change in own life. Client identified a change they would like to make as ?find a different job?. Client reports making this change will benefit her by reducing financial stress, improving personal growth, and learning new skills which will improve self-confidence as well. Client plans to try using starting small by finding a few places to send her resume out to. Appeared to benefit from identifying a small goal to work towards. Client will continue IOP tx to further reduce negative self-talk, improve self-care and personal accountability, as well as prevent decompensation. Narrative Note: []
--- NOTE | 2021-05-21 10:15 | BH.SGPN.GN ---
Behaviors/Verbalizations/Mental Status: []Client alert and oriented, casually dressed and groomed. Eye contact good. Motor activity appropriate. Speech within normal limits. Affect congruent, mood euthymic. Thoughts linear, logical, no signs of hallucinations or delusions. Client Response/Progress/Benefit: []Client engaged during session AEB client contributing thoughts throughout discussion and completing worksheet. Connected with discussion on crisis and how coping with external crises by using unhealthy coping skills could result in a personal crisis. Group reflected on the importance of having awareness of personal warning signs in order to prevent reaching crisis point. Group identified potential warning signs for crisis and client completed the personal warning signs worksheet. Client identified personal crisis warning signs to include: isolation, lack of motivation, and lash out on loved ones. Client benefited by increasing awareness of what leads to crisis and personal warning signs. Client will continue IOP to continue use of healthy skills, successfully transition back to work and prevent decompensation.
--- NOTE | 2021-05-21 11:15 | BH.SGPN.GN ---
Behaviors/Verbalizations/Mental Status: []Client alert and oriented, casually dressed and groomed. Eye contact good. Motor activity appropriate. Speech within normal limits. Affect congruent, mood euthymic. Thoughts linear, logical, no signs of hallucinations or delusions Client Response/Progress/Benefit: []Client responded well to session as evidenced by client listening attentively to others and providing strategies during discussion. Client identified warning signs for crisis and gained further awareness of earliest warning signs. Client created a crisis action plan to help client better manage warning signs for crisis. Client?s action plan for negative thinking, loss of motivation, and uncontrollable worries included coping skills such as: identify positive affirmations, break down chores into smaller parts, make a list of what is good in her life, and remember a thought is just a thought not a fact. Client appeared to benefit from creating a crisis action plan and increasing self-awareness. Client to continue IOP tx to reinforce healthy coping skills, continue to challenge negative thoughts and prevent decompensation.
--- NOTE | 2021-05-21 12:21 | BH.MDN_ITS ---
Multi-Disciplinary Note - Note 30-min Individual Time Started:: 09:27 Date: 05/21/21 Purpose of session/treatment goals addressed:: Reviewed progress on treatment plan in IOP. Discussed pt aftercare plans and reviewed importance of boundaries in maintaining self-care post IOP discharge. Eye Contact:: Good Motor Activity:: Appropriate Appearance:: Casual Speech:: Rambling Mood:: Euthymic, Anxious Affect:: Congruent Thoughts:: Linear, Logical, Other - at times appearing tangential and difficult to remain on topic, No evidence of hallucinations/delusions noted Staff Interventions:: motivational interviewing, discharge planning, strengths perspective, goal setting - identifying self-care activities to continue following IOP discharge and upon returning to work Client Response:: Reviewed progress in IOP and on treatment plan goals. Pt discussed recently struggling with increased anxiety about upcoming return to work as well as fears she won?t be able to maintain progress after discharging from IOP tx. Pt reports forgetting to complete the maintenance plan she and her regular therapist had discussed last week. Shared knowing self-care is an important component of maintaining progress but is unsure of what her schedule will look like upon retuning to work. Reports anxiety about unknows associated with return to work, such as no start date or clear job role. Discussed identifying brewer self-care activities she would like to continue following return to work so that she can ensure she makes time for these when planning her work schedule. Identified having Sundays for jehovah's witness as well as some daylight hours to go for walks with her dog as important. Shared she would like to additionally work on establishing concrete aftercare services and inquired about local therapists as she does not believe her previously established provider is still practicing in the area. Open to having several counseling options given to her and reports plans to follow up with suggested agencies. Risks/Concerns:: none noted as of this date, 05/21/21. Progress Toward Goals/Plan:: Client responding well to IOP tx AEB her continued consistency of attendance and self-report of readiness to return to work. Discussed some anxiety about doing so but ultimately is ready for a change in her routine and knows this is a positive step. Client reports anxieties about maintaining progress post-iop discharge and was receptive of discussion on healthy boundaries regarding her time and self-care skills for preventing decompensation. Client continues to endorse worry, rumination, and lack of motivation though this is improved. Client displays readiness to step down to outpatient level of counseling given consistent gains and is scheduled for discharge on 05/25/21. Interested in attending the Aftercare program but is checking into her schedule for availability to do so. Time Stopped:: 09:56
--- NOTE | 2021-05-22 10:10 | BH.SGPN.GN ---
Behaviors/Verbalizations/Mental Status: []Client alert and oriented, casually dressed and groomed. Eye contact good. Motor activity appropriate. Speech within normal limits. Affect congruent, mood euthymic. Thoughts linear, logical, no signs of hallucinations or delusions. Client Response/Progress/Benefit: []Pt was an attentive participant AEB taking notes and contributing throughout. Attentive during psychoeducation on Conflict Styles ( Avoidant, Competing, Accommodating, and Collaborating). Participated in interactive group discussion on benefits of conflict.? Pt along with peers identified several reasons conflict is often avoided which included: anxiety, fear of other?s reaction, not wanting to face additional conflict, and negative past experiences. Pt reported connecting most with the competing style when at work. Pt stated competing style can be helpful when advocating for someone else. Recognizes if overuses this style it can cause more conflict with others. Benefited from increased awareness on conflict styles. Will continue in IOP to maintain gains, continue use of healthy coping and prevent decompensation.
--- NOTE | 2021-05-22 11:10 | BH.SGPN.GN ---
Behaviors/Verbalizations/Mental Status: []Client alert and oriented, casually dressed and groomed. Eye contact good. Motor activity appropriate. Speech within normal limits. Affect congruent, mood euthymic. Thoughts linear, logical, no signs of hallucinations or delusions. Client Response/Progress/Benefit: []Client engaged in session AEB contributing to discussion and engaging in activity. Client did well to review conflict styles and the various impacts of each on mental health. Client participated in activity and was actively listening to peers? suggestions at times, as well as was willing to be assertive when the potential conflict was important. Client attentive on education about fair fighting rules handout. To better address conflict, client wants to work on using a calm voice instead of yelling when upset. Client stated she realizes when she is yelling no one is listening to what she's saying. Appeared to benefit from gaining strategies to help client better manage conflict. Pt is to continue IOP to maintain gains, continue use of healthy coping and prevent decompensation.
--- NOTE | 2021-05-25 10:05 | BH.SGPN.GN ---
Behaviors/Verbalizations/Mental Status: []Client alert and oriented, casually dressed and groomed. Eye contact good. Motor activity appropriate. Speech within normal limits. Affect congruent, mood euthymic. Thoughts linear, logical, no signs of hallucinations or delusions. Client Response/Progress/Benefit: []Pt was an engaged participant AEB pt listening attentively to others and providing input throughout. Attentive during psychoeducation on communication styles. Assisted group with identifying benefits of effective communication on mental health which included: getting needs met, improves relationships, maintains boundaries, and prevents additional conflict. Pt reported yelling as a communication barrier because recognizes others are not listening to her when yells. Pt identified she most often uses passive-aggressive and aggressive communication styles. Pt stated she has been moving towards using assertive communication. Benefited from increased awareness of different communication barriers, styles, and the importance of communicating effectively to improve mental wellness. Will continue IOP tx to continue use of healthy coping strategies, maintain gains, and prevent decompensation.
--- NOTE | 2021-05-25 11:05 | BH.SGPN.GN ---
Behaviors/Verbalizations/Mental Status: []Client alert and oriented, casually dressed and groomed. Eye contact good. Motor activity appropriate. Speech within normal limits. Affect constricted, mood anxious and euthymic. Thoughts linear, logical, no signs of hallucinations or delusions. Client Response/Progress/Benefit: []Pt was a active participant in group discussion. Attentive during psychoeducation on communication styles (Passive, Passive-Aggressive, Aggressive, and Assertive) and benefits/disadvantages to each style. Pt reflected on how her communication styles of passive aggressive and aggressive have impacted her mental health and relationships. Participated in the group activity and learned DEAR MAN skill. Pt reports wanting to work on the assert component of this skill to advocate for herself at work. Benefited from learning DEAR MAN and setting a goal to improve communication. Will discharge from IOP tx today as client has made significant progress and no longer meets criteria for IOP level of care. Narrative Note: []
--- NOTE | 2021-05-25 14:43 | BH.MDN_ITS ---
Multi-Disciplinary Note - Note 45-min Individual Time Started:: 12:20 Date: 05/25/21 Purpose of session/treatment goals addressed:: The purpose of this session was to review client's progress and review strategies that will promote mood stability and gains made in [facility]. Another goal was to discuss discharge recommendations and process any current stressors. Eye Contact:: Good Motor Activity:: Appropriate Appearance:: Casual Speech:: Tangential, Rambling Mood:: Euthymic, Anxious Affect:: Congruent Thoughts:: Other - Tangential, No evidence of hallucinations/delusions noted Staff Interventions:: discharge planning, reviewed DSM-5, goal setting Client Response:: Client responded well to session, open to meeting with therapist. This therapist had been out due to COVID, so client met with another therapist last week. Client shared she worked on identifying self-care strategies and has been thinking about the pros and cons of finding a new job. Client will discharge from [facility] today, and she reports feeling anxious about l eaving the supportive network, but client recognizes the progress she has made. Client wants to participate in [facility] aftercare and also see her outpatient counseling which will help promote gains. Discussed other strategies such as continuing to journal, use opposite action, and challenge negative thought patterns. Discussed the maintenance plan worksheet provided by therapist that included triggers, warning signs, and coping skills. Client able to identify her warning signs for worsening mental health symptoms including isolation, avoidance, ruminations, and lack of motivation. Client has done well to set small goals while in [facility] and she has been isolating less. Client still has days when client struggles to get out of bed, but she reports she is able to challenge herself and bounce back quicker. 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 Client is anxious about this, but less anxious than last week. Client continues to experience long COVID symptoms, and will be evaluating in two weeks to see if she can return to work full-time. Client stated she will advocate for herself and make sure she gets time off each week for counseling. Risks/Concerns:: Client denies any suicidal ideations, plan, or intent as of 05/25/21. Denies any thoughts of or HI. Progress Toward Goals/Plan:: Client has responded well to treatment and has made great progress while in [facility] AEB her DSM-5 score reduction and self-report. Client self-reports overall improved ability to cope with stressors, reduced depression, and increased ability to manage anxiety. Client?s DSM-5 scores decreased by 48% since admission. Client reports increased ability to manage her emotions and challenge negative thoughts. Client still endorses mild anxiety and depression, but she reports increased confidence to manage these symptoms despite feeling worried about leaving IOP. Client will continue with outpatient counseling and plans to participate in IOP aftercare. Time Stopped:: 13:00
--- NOTE | 2021-05-25 14:50 | BH.AFTERPLAN ---
Aftercare Plan - Demographics Treatment End Date:: 05/25/21 Psychiatrist:: Yoanna Buchanan Psychiatrist Office #:: [phone] [facility]/IOP Therapist:: Mel Rodriguez Therapist Phone #:: [phone] - Plan Details Progress/Aftercare Plan Details:: Gema has made significant strides since starting IOP as shown by her reduced symptoms, ability to challenge distortions, and overall increased ability to manage emotions and stressors. When Gema started IOP, she was anxious and depressed. Gema was isolating, was feeling constantly overwhelmed, and had increased irritability. Now, Gema is actively using healthy coping skills like opposite action, challenging negative thoughts, and using the awareness she has gained to manage her emotions. Gema was always attentive during group, offered emotional support to peers, and consistently followed through with her goals. In individual sessions, Gema was receptive to feedback, consistent with homework, and willing to push herself. Gema?s overall DSM-5 scores decreased by 48% since admission. Depression decreased by 33%, anxiety by 60%, and thoughts of actually hurting herself decreased by 100%. Gema still has anxiety about returning to work and about maintenance, but she is doing much better at handling daily stressors. Gema plans to follow up with outpatient counseling at [facility]. Strategies for Success:: 1. Continue to use positive self-talk when you feel anxious, fearful, or down. 2. Remember thoughts are thoughts NOT facts! And feelings are feelings NOT facts. 3. When anxious thoughts and feelings of being overwhelmed occur, remember to break down your stressors and set small, realistic goals. Ask yourself ?what can be done today?? 4. Opposite action! Continue to push yourself to do the anxious thing or be social when you want to isolate. 5. Self-care and boundaries! At work, at home, and with self to keep you accountable. 6. Continue to spend time with supports and go to yazidism. 7. Keep journaling and giving yourself credit. 8. Maintenance! Self-care is important and so is checking in with yourself each day. - Appointments Appointments/Referrals to Other Services:: 1. Twila treviño [facility] on 06/11/21 at 12:30pm 2. IOP aftercare starting 06/04/21 at 2:00pm. 3. Follow up with Dr. Denson for medication management or explore psychiatry options at [facility]. - Medications Home Medications: Home Medications buspirone 10 mg tablet 15 mg PO TID PRN PRN 06/30/17 loratadine 10 mg PO DAILY 04/25/20 losartan 100 mg PO DAILY 04/25/20 meloxicam 15 mg PO DAILY 04/25/20 potassium chloride 10 meq PO DAILY 05/26/20 carvedilol 12.5 mg PO BID 06/15/20 duloxetine 60 mg PO DAILY 06/15/20 magnesium oxide 400 mg PO DAILY 10/06/20 sotalol 120 mg PO BID 10/06/20 gabapentin 300 mg PO BID 04/01/21 buspirone 5 mg PO BID #60 tab 04/08/21
--- NOTE | 2021-05-25 15:01 | BH.DS_ITS ---
Discharge Summary - Demographics Date of Admission:: 04/01/21 Discharge Date: 05/25/21 Presenting Problems at Admission:: Client is a 56 year-old female who was self- referred to [facility] due to worsening depression, anxiety, and functioning. Client reports history of anxiety, depression, and hoarding behaviors. No previous psychiatric admissions. Client reports her anxiety exacerbates her depressive symptoms because of constant worries that lead to negative thought patterns. Client reports symptoms have been worsening over the last several months. Client had COVID in January 2021 and she is still experiencing after effects that are preventing client from working. Client currently endorses poor concentration, lack of energy, lack of motivation, poor sleep, decreased appetite, racing thoughts, and increased irritability. 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 Client has also been isolating which is impacting her relationships and social life. Discharge Diagnoses:: Generalized anxiety disorder; Major depressive disorder, recurrent, severe without psychosis F 33.2 Reason for Discharge:: Client has made significant progress towards her treatment goals AEB her reduction in DSM-5 symptom scores, self-report of increased ability to manage emotions and negative thoughts, and improved functioning. Client no longer meets criteria for IOP level of care and will transition to outpatient counseling and IOP aftercare. - Treatment Progress During Treatment & Response: Client has made significant strides since starting IOP as shown by her reduced symptoms, ability to challenge distortions, and overall increased ability to manage emotions and stressors. When Client started IOP, she was anxious and depressed. Client was isolating, was feeling constantly overwhelmed, and had increased irritability. Now, Client is actively using healthy coping skills like opposite action, challenging negative thoughts, and using the awareness she has gained to manage her emotions. Client was always attentive during group, offered emotional support to peers, and consistently followed through with her goals. In individual sessions, Client was receptive to feedback, consistent with homework, and willing to push herself. Client?s overall DSM-5 scores decreased by 48% since admission. Depression decreased by 33%, anxiety by 60%, and thoughts of actually hurting herself decreased by 100%. Client still has anxiety about returning to work and about maintenance, but she is doing much better at handling daily stressors. Client plans to follow up with outpatient counseling at [facility]. Issues Still to be Addressed:: Client can benefit from ongoing counseling to reinforce healthy coping skills, challenge negative thought patterns, and promote gains made in IOP. Client self-reported that the accountability from IOP was very helpful as client struggles with internal motivation at times. Client encouraged to set small daily/weekly goals and to focus on prioritizing tasks. Client can benefit from continuing to work on establishing a self-care routine and utilizing emotional regulation skills. Lastly, client is considering finding a new job and can benefit from processing anxiety and stress that comes with changing employment. Discharge Recommendations/Instructions:: Client is recommended to follow up with her outpatient therapist, Twila, at [facility] for individual counseling. Client will see Twila on 06/11/21 at 12:30pm. Client would like to have her PCP, Dr. Denson, monitor medications for now and client reports plan to explore psychiatry in the future if she does not find this beneficial. Client will start IOP aftercare group on 06/04/21. Discharge Handout: Complete Discharge Handout with client on aftercare options and continuity of care.
== END 2021-05-25 13:02 | disposition home or self-care (01) ==
LOC: BHIOP 09:00
PROVIDERS: PCP Student in an Organized Health Care Education/Training Program; Referring Provider Psychiatry & Neurology Psychiatry; Visit Provider Psychiatry & Neurology Psychiatry
DX: F41.8 Other specified anxiety disorders (principal); F33.2 Major depressive disorder, recurrent severe without psychotic features
CPT/HCPCS: S9480; 90832; 90834; 90853

== ENCOUNTER 2021-06-04 09:00 | Outpatient (RCR) | payer OTHER, SELFPAY ==
--- NOTE | 2021-06-04 13:27 | BH.MTP ---
Master Treatment Plan - Patient Information Program Physician:: Dr. Yoanna Buchanan Primary Therapist:: Mel KINNEY - Psychiatric Diagnoses Psychiatric Diagnoses:: Generalized anxiety disorder; Major depressive disorder, recurrent, severe without psychosis F 33.2 Diagnosis Code(s):: F 33.2 - Estimated LOS Estimated LOS (in weeks):: 12 Problem/Goal #1 - Problem/Goal #1 Stated Goal:: client will maintain or see a reduction in symptoms AEB client score on the DSM 5 cross-cutting measure and improve client's daily functioning. - Objectives Objective #1 Stated Objective: Client will continue to consistently apply healthy coping skills to maintain progress made in IOP tx. Interventions: Through group therapy, client will review warning signs and triggers as well as healthy coping skills learned in IOP tx to successfully maintain gains while transitioning into outpatient therapy. Discharge Criteria: Client will have accomplished this goal when client's score on the DSM-5 cross-cutting measure has either maintained or reduced over a 12 week period. Target Date: 08/27/21 Review Date: 07/02/21 Status: open Objective #2 Stated Objective: Client will learn and utilize 2-3 maintenance strategies to prevent decompensation. Interventions: Through group therapy, client will be provided with education on healthy maintenance behaviors, relapse prevention techniques, and healthy coping strategies. Discharge Criteria: Client will have accomplished this goal when can report using at least 2 maintenance skills to prevent decompensation. Target Date: 08/27/21 Review Date: 07/02/21 Status: open
--- NOTE | 2021-06-04 14:00 | BH.SGPN.GN ---
Behaviors/Verbalizations/Mental Status: []Client alert and oriented, casually dressed and groomed. Eye contact good. Motor activity appropriate. Speech within normal limits. Affect congruent, mood euthymic and anxious. Thoughts linear, logical, no signs of hallucinations or delusions. Client Response/Progress/Benefit: []Client responded well to session, actively engaged and providing supportive feedback throughout. Client reported her emotion as ?optimistic? as today is her first day of aftercare. Discussed getting ready for a job fair and her car not starting, causing agitation. Client stated that she used breathing as a way to calm herself. Client stated that she is anxious about the unknown, but is looking over her therapy notes and is working toward finding a new job. Client participated in group discussion regarding skills and routines that make up mental health maintenance, and completed their own maintenance plan. Client identified her triggers as the seasons changing and making other people?s stressors her own. Client reported her warning signs including irritability, sleep problems, and self isolation. Client?s prevention plan included self care activities and coping strategies, as well as identified how they will know when to return to therapy. Appeared to benefit from identifying personal triggers, warning signs, and skills to help maintain mental health. Client to continue aftercare group to reinforce healthy coping skills and promote mood stability. Narrative Note: []
--- NOTE | 2021-06-11 14:00 | BH.SGPN.GN ---
Behaviors/Verbalizations/Mental Status: []Client alert and oriented, casually dressed and groomed. Eye contact good. Motor activity appropriate. Speech within normal limits, tangential at times. Affect congruent, mood euthymic. Thoughts linear, logical, no signs of hallucinations or delusions. Client Response/Progress/Benefit: []Pt responded well to session AEB pt openly sharing thoughts and feelings and completing worksheet. Pt stated she is feeling ?more optimistic than usual? today. Pt stated she returned to work this week which pt was anxious about, but it is going better than expected. Pt feels with her new schedule she can more easily balance self-care and her appointments. Pt also had her first outpatient counseling appointment today post IOP and it went well. Pt is anxious about an upcoming heart appointment, but is challenging distortions. Pt responded well to group discussion and review about self-care. Pt stated she will work on following self-care activities: reading, making phone calls as needed, attending jewish and small jewish groups, spending time with family, and house hold chores. Pt seemed to benefit from support from peers and identifying self-care plan. Pt to continue aftercare to prevent decompensation and continue use of healthy coping. Narrative Note: []
--- NOTE | 2021-06-18 14:00 | BH.SGPN.GN ---
Behaviors/Verbalizations/Mental Status: []Client alert and oriented, casually dressed and groomed. Eye contact good. Motor activity appropriate. Speech within normal limits. Affect congruent, mood euthymic. Thoughts linear, logical, no signs of hallucinations or delusions. Client Response/Progress/Benefit: []Client responded well to session AEB providing supportive feedback throughout and listening attentively to others. Client reported her emotion as ?excited?, as she is looking forward to attending a meeting at her hindu. Client discussed that she has been back to work for two weeks and is feeling tired, but that she is seeing her family, participating in hindu groups, and doing crossword puzzles as self care. Client participated in group discussion of gratitude and the importance of practicing both internal and external gratitude into your routine. Client completed a one-week gratitude challenge schedule, setting a goal to focus on internal gratitude by listening to a song she loves, noticing something that she likes about herself, and appreciating somethings she has created. Appeared to benefit from increased knowledge of the internal and external gratitude in relation to mental health and increased self-awareness. Client to continue aftercare group to reinforce healthy coping skills and continue increasing application of self care to promote gains. Narrative Note: []
== END 2021-06-22 23:59 ==
LOC: BHOG 09:00
PROVIDERS: PCP Student in an Organized Health Care Education/Training Program; Referring Provider Psychiatry & Neurology Psychiatry; Visit Provider Psychiatry & Neurology Psychiatry
DX: F41.8 Other specified anxiety disorders (principal); F33.2 Major depressive disorder, recurrent severe without psychotic features
CPT/HCPCS: 90853

== ENCOUNTER 2021-06-23 07:55 | Outpatient (RCR) | payer OTHER, SELFPAY ==
--- NOTE | 2021-06-25 14:00 | BH.SGPN.GN ---
Behaviors/Verbalizations/Mental Status: []Client alert and oriented, casually dressed and groomed. Eye contact good. Motor activity appropriate. Speech within normal limits. Affect congruent, mood euthymic. Thoughts linear, logical, no signs of hallucinations or delusions. Client Response/Progress/Benefit: []Client responded well to session AEB sharing and listening attentively to others. Client reported her emotion as ?upbeat?. Client discussed staying busy by taking care of her family, working, and attending hoahaoism events. Client reports continuing to look for a new job, and is planning to attend a job fair this week. Client was attentive throughout group discussion defining self compassion, reviewing the three brewer elements, and identifying what self compassion is not. Client completed exercise working through a past situation where they could have benefited from self compassion. Client identified ?shoulding? herself when she was asked to babysit when she had plans. Client applied self compassion to this situation, stating, ?I need to get out with a friend? and remembered that she has helped in the past. Appeared to benefit from increased knowledge of self compassion and increased self awareness. Will continue aftercare treatment to reinforce application of self-care to continue to promote gains. Narrative Note: []
== END 2021-07-23 23:59 | disposition short-term general hospital (02) ==
LOC: BHOG 07:55
PROVIDERS: PCP Student in an Organized Health Care Education/Training Program; Referring Provider Psychiatry & Neurology Psychiatry; Visit Provider Psychiatry & Neurology Psychiatry
DX: F41.8 Other specified anxiety disorders (principal); F33.2 Major depressive disorder, recurrent severe without psychotic features
CPT/HCPCS: 90853

== ENCOUNTER 2021-07-02 08:01 | Emergency (ER) | payer OTHER, SELFPAY ==
--- NOTE | 2021-07-02 08:07 | RAD_ITS ---
HISTORY: cp. TECHNIQUE: XR Chest 1 View. # of images incl. paperwork: 2. COMPARISON: 02/10/2021. FINDINGS: CARDIOMEDIASTINAL STRUCTURES: Unchanged borderline cardiomegaly with pacemaker. Moderate hiatal hernia noted. LUNGS: Mild left basilar atelectasis or scarring. PLEURA: No pleural effusion or pneumothorax. OSSEOUS STRUCTURES: Unremarkable. RAD/Chest 1 View (Portable) IMPRESSION: Mild left basilar atelectasis or scarring. Hiatal hernia. at 0916 Reported and signed by: Antonia Calles MD Electronically Signed: Antonia Calles MD at 9:15 EST ,
[2021-07-02 08:08] VITALS: BP 150/111; PULSE 63; RESP 22; TEMP 36.4; O2SAT 99; BMI 37.5
--- NOTE | 2021-07-02 08:08 | EKG12_ITS ---
Test Reason : CP Blood Pressure : / mmHG Vent. Rate : 066 BPM Atrial Rate : 066 BPM P-R Int : 152 ms QRS Dur : 074 ms QT Int : 436 ms P-R-T Axes : 015 -08 020 degrees QTc Int : 457 ms Suspect unspecified pacemaker failure Normal sinus rhythm with sinus arrhythmia Normal ECG Confirmed by FALLON GOODWIN, HUGO ([id number]), supervising editor news reel [email or web address] VALDERRAMA ([id number]) on 07/03/2021 8:38:05 AM Referred By: SUREKHA Confirmed By:HUGO LEHMAN MD
--- NOTE | 2021-07-02 08:11 | CT_ITS ---
EXAM: CT ANGIOGRAPHY CHEST WITHOUT AND WITH INTRAVENOUS CONTRAST CLINICAL INDICATION: Chest pain. TECHNIQUE: Helically acquired angiography images were obtained of the chest without and with intravenous contrast. This CT exam was performed using one or more of the following dose reduction techniques: automated exposure control, adjustment of the mA and/or kV according to patient size, and/or use of iterative reconstruction technique. This report was created using [employer] report generation technology. MIP reconstructed images were created and reviewed. CONTRAST: IV 100mL Isovue-370 COMPARISON: None. FINDINGS: PULMONARY ARTERIES: Unremarkable. Normal in caliber. No evidence of pulmonary embolism. AORTA: Unremarkable. Normal in caliber. No evidence of dissection. GREAT VESSELS OF AORTIC ARCH: Unremarkable. Normal in caliber. No evidence of dissection. LUNGS AND PLEURAL SPACES: Asymmetric posterior pleural thickening, right greater than left. No mass. No pneumothorax. HEART: Cardiomegaly. Normal pericardium. No signs of right heart strain, ratio of right ventricle to left ventricle measures less than 1. MEDIASTINUM: Unremarkable. No mediastinal or hilar adenopathy. Esophagus is unremarkable. No hiatal hernia. THYROID: Unremarkable. No thyroid lesions. BONES/JOINTS: Unremarkable. No suspicious lytic or blastic abnormality. SOFT TISSUES: Large left gastric hernia. GALLBLADDER AND BILE DUCTS: Surgical clips in the gallbladder fossa area from cholecystectomy. CT/CTA Chest W/WO Contrast IMPRESSION: 1. No CTA evidence of pulmonary thromboemboli, thoracic aortic aneurysm or dissection. 2. Cardiomegaly with dual-chamber pacing lead tips in the right atrium and right ventricle. 3. Asymmetric posterior pleural thickening, right greater than left. The possibility of right pleural based masses cannot be excluded. CT guided biopsy may be helpful for further evaluation. 4. Large left gastric hernia. Electronically Signed: Monty Crespo MD at 9:35 EST ,
--- NOTE | 2021-07-02 08:11 | CT_ITS ---
STUDY: CTA HEAD AND NECK WITH CONTRAST REASON FOR EXAM: Female, 56 years old. Headache RADIATION DOSAGE (If Supplied By Facility): CTDIvol = ( 21.50 ) mGy, DLP = ( 2571.43 ) mGycm TECHNIQUE: CT angiography was performed with a multi-detector CT scanner. Data acquisition was obtained from the skull base through the vertex following intravenous administration of 100CC ISOVUE 370. MIP images were reconstructed from the axial data set. Post-processing of the angiographic images was performed, with multiplanar reformation and 3D reconstruction. Individualized dose optimization techniques were used for this CT. COMPARISON: No relevant priors. FINDINGS: Normal bilateral petrous carotid arteries. Normal right cavernous carotid artery with a normal supraclinoid bifurcation. Normal left cavernous carotid artery with a normal supraclinoid bifurcation. Normal right A1 segment of the anterior cerebral artery. Normal left A1 segment of the anterior cerebral artery. Normal intact anterior communicating artery (ACOM). Normal bilateral A2 segments of the anterior cerebral arteries. Normal right M1 and M2 segments of the middle cerebral arteries, with a normal M1 bifurcation. Normal left M1 and M2 segments of the middle cerebral arteries, with a normal M1 bifurcation. No visible right posterior communicating artery (PCOM). Normal left posterior communicating artery (PCOM). Normal bilateral vertebral arteries. The left is slightly more dominant. Normal basilar artery with a normal basilar bifurcation. The visualized bilateral superior cerebellar (SCA) arteries are normal. Normal bilateral P1, P2 and visualized P3 segments of the posterior cerebral arteries. There is no demonstrated aneurysm of the knik of [place]. There is no demonstrated abnormality of the visualized brain. AORTIC ARCH: Normal visualized aortic arch. Normal origins of the brachiocephalic, left common carotid, and left subclavian arteries. RIGHT CAROTID ARTERIES: Normal right common carotid artery (CCA). Normal right carotid bulb. Normal origin of the right internal carotid (ICA) artery without a hemodynamically significant stenosis. Normal visualized cervical portion of the right internal carotid artery. Normal origin of the right external carotid artery (ECA). LEFT CAROTID ARTERIES: Normal left common carotid artery (CCA). Normal left carotid bulb. Normal origin of the left internal carotid (ICA) artery without a hemodynamically significant stenosis. Normal visualized cervical portion of the left internal carotid artery. Normal origin of the left external carotid artery (ECA). VERTEBRAL ARTERIES: Normal bilateral vertebral arteries. CT/CTA Head AND Neck W/ Contrast IMPRESSION: Normal CTA Head and neck with contrast. Electronically Signed: Monty Crespo MD at 9:14 EST ,
--- NOTE | 2021-07-02 08:12 | EDS_ITS ---
HPI History of Present Illness Chief Complaint: Chest Pain Narrative Narrative: Patient woke up this morning she did not have any symptoms, she developed a relatively rapid onset of a headache and then very briefly afterwards developed severe chest pain, both which she rates 10 out of 10. She has no back pain or tearing sensation. She has no neurological deficits, no vision changes no weakness or paresthesias. She has no neck pain or stiffness. No abdominal pain. [facility] Medical History Anemia Arthritis COVID-19 Endometrial cancer Generalized anxiety disorder History of traumatic brain injury Hypertension ICD (implantable cardioverter-defibrillator) in place Major depressive disorder, recurrent severe without psychotic features Pneumonia due to 2019-nCoV Right inguinal hernia Seizures Stroke Urinary retention Ventricular tachycardia Home Medications loratadine 10 mg PO DAILY 04/25/20 [History Last Taken 01/31/21] losartan 100 mg PO DAILY 04/25/20 [History Last Taken 01/31/21] meloxicam 15 mg PO DAILY 04/25/20 [History Last Taken 01/31/21] potassium chloride 10 meq PO DAILY 05/26/20 [History Last Taken 01/31/21] carvedilol 12.5 mg PO BID 06/15/20 [History Last Taken 01/31/21] duloxetine 60 mg PO DAILY 06/15/20 [History Last Taken 01/31/21] magnesium oxide 400 mg PO DAILY 10/06/20 [History Last Taken 01/31/21] sotalol 120 mg PO BID 10/06/20 [History Last Taken 01/31/21] gabapentin 400 mg PO QHS 04/01/21 [History Last Taken Unknown] buspirone 30 mg PO BID 07/02/21 [History Last Taken Unknown] cephalexin 500 mg PO HUNTER 07/02/21 [History Last Taken Unknown] cholecalciferol (vitamin D3) [Vitamin D3] 125 mcg PO DAILY 07/02/21 [History Last Taken Unknown] qjsvoeyrhbwh-[id number]-[id number] acid [Centrum Women] 1 tab PO DAILY 07/02/21 [History Last Taken Unknown] nortriptyline 75 mg PO DAILY #14 cap 07/02/21 [Rx Last Taken Unknown] oxycodone 5 mg PO BID PRN 3 Days #12 tab 07/02/21 [Rx Last Taken Unknown] triamcinolone acetonide [Nasacort] 2 spray INTRANASAL BID 07/02/21 [History Last Taken Unknown] Allergy/AdvReac Type Severity Reaction Status Date / Time Penicillins [PCN] Allergy Swelling Verified 07/02/21 08:02 erythromycin base AdvReac Upset Verified 07/02/21 08:02 [Erythromycin Base] Stomach sulfamethoxazole AdvReac Upset Verified 07/02/21 08:02 [From Bactrim] Stomach trimethoprim [From Bactrim] AdvReac Upset Verified 07/02/21 08:02 Stomach MACROBID Allergy Mild Hives Uncoded 07/02/21 08:02 Family History Mother Cancer Hx endometrial CA. Father Myocardial infarction Heart disease Surgical History H/O: hysterectomy (~2005) History of cholecystectomy s/p right inguinal hernia repair with mesh (~06/27/18) Status post club foot correction at Status post implantation of automatic cardioverter/defibrillator (AICD) Social History household members: spouse Smoking Status: Former smoker alcohol intake: current alcohol intake frequency: other substance use type: does not use ROS ROS ED ROS Narrative Past medical history: Reviewed, it is extensive, includes history of CLARKE, hypertension, hypercholesterolemia, history of V. tach, anxiety depression, history of hemorrhagic CVA Medications: Reviewed, she is not anticoagulated. Social history: Noncontributory Review of systems: All systems negative except as indicated General: No fever. Eyes: No visual changes ENT: No upper airway congestion, normal voice Neck: No neck pain Cardiovascular: Chest pain as in HPI Respiratory: No shortness of breath or cough Gastrointestinal: No abdominal pain, nausea vomiting or diarrhea Genitourinary: No dysuria Musculoskeletal: Denies myalgias no difficulty with ambulation Skin: No rash Neurological: Severe headache as in HPI. No memory loss, confusion or any focal weakness. Psych: No recent behavioral changes Hematologic: No easy bleeding or easy bruising EXAM Physical Exam Narrative Exam Narrative: Physical exam General: Patient appears uncomfortable. She does appear in distress. Head: Normocephalic, Atraumatic Eyes: Conjunctiva not pale ENT: Moist mucous membranes Neck: Supple, Nontender, No lymphadenopathy Cardiovascular: Regular rate, Regular rhythm Chest wall: Patient does have somewhat reproducible diffuse but mostly midline chest wall pain Respiratory: No distress, CTA bilaterally Abdomen: Soft, Nontender, Nondistended Back: Nontender, Normal Inspection. Negative for: CVA tenderness Extremities: Nontender, No edema Skin: Normal color, No rash Neurological: Alert, Normal Strength, Normal Sensation Psychological: Slightly anxious Const Vital Signs: 07/02/21 08:08 07/02/21 10:50 07/02/21 11:05 Temperature 97.5 F L Temperature Source Oral Pulse Rate 63 63 60 Respiratory Rate 22 H 24 H 17 Respiratory Effort Normal Non-Labored Respiratory Pattern Normal Blood Pressure 150/111 H 126/47 H 103/43 L Blood Pressure Mean 124 73 63 Pulse Ox 99 95 95 Oxygen Delivery Method Room Air Room Air MDM MDM MDM Narrative Medical decision making narrative: Patient has an unremarkable emergency department work-up, she still has pain but now her pain is the right side of her face, she does have a history of trigeminal neuralgia I wonder if this is what is causing her symptoms. I will add Pamelor to her treatment and discharge her with analgesia. I will refer to pain management. Lab Data Labs: Laboratory Results - last 24 hr 07/02/21 07/02/21 07/02/21 08:20 08:20 08:20 WBC 5.7 RBC 5.49 H Hgb 15.7 H Hct 46.9 MCV 85.4 MCH 28.6 MCHC 33.5 RDW Std Deviation 42.4 RDW Coeff of Love 13.5 Plt Count 275 MPV 10.3 Immature Gran % (Auto) 0.200 Neut % (Auto) 49.2 Lymph % (Auto) 38.1 Hernando % (Auto) 7.5 Eos % (Auto) 2.4 Baso % (Auto) 2.6 H Absolute Neuts (auto) 2.8 Absolute Lymphs (auto) 2.18 Nucleated RBC % 0 PT 12.3 INR 1.0 Sodium 141 Potassium 4.1 Chloride 109 H Carbon Dioxide 27.0 Anion Gap 5 BUN 16 Creatinine 0.85 Estim Creat Clear Calc 56.43 Est GFR (MDRD) Af Amer 89 Est GFR (MDRD) Non-Af 74 BUN/Creatinine Ratio 18.8 Glucose 131 H Calcium 9.2 Total Bilirubin 0.30 AST 17 ALT 23 Alkaline Phosphatase 47 Troponin I High Sens 5 B-Natriuretic Peptide Total Protein 6.2 L Albumin 3.3 Globulin 2.9 Albumin/Globulin Ratio 1.1 Lipase 95 07/02/21 07/02/21 08:20 10:37 WBC RBC Hgb Hct MCV MCH MCHC RDW Std Deviation RDW Coeff of Love Plt Count MPV Immature Gran % (Auto) Neut % (Auto) Lymph % (Auto) Hern[place] % (Auto) Eos % (Auto) Baso % (Auto) Absolute Neuts (auto) Absolute Lymphs (auto) Nucleated RBC % PT INR Sodium Potassium Chloride Carbon Dioxide Anion Gap BUN Creatinine Estim Creat Clear Calc Est GFR (MDRD) Af Amer Est GFR (MDRD) Non-Af BUN/Creatinine Ratio Glucose Calcium Total Bilirubin AST ALT Alkaline Phosphatase Troponin I High Sens 10 B-Natriuretic Peptide 56.7 Total Protein Albumin Globulin Albumin/Globulin Ratio Lipase Radiography Diagnostic Testing: Clinical Impression(s) from Imaging Studies Chest X-Ray 07/02/21 08:07 IMPRESSION: Mild left basilar atelectasis or scarring. Hiatal hernia. at 0916 Reported and signed by: Antonia Calles MD Electronically Signed: Antonia Calles MD at 9:15 EST , Chest CTA 07/02/21 08:11 IMPRESSION: 1. No CTA evidence of pulmonary thromboemboli, thoracic aortic aneurysm or dissection. 2. Cardiomegaly with dual-chamber pacing lead tips in the right atrium and right ventricle. 3. Asymmetric posterior pleural thickening, right greater than left. The possibility of right pleural based masses cannot be excluded. CT guided biopsy may be helpful for further evaluation. 4. Large left gastric hernia. Electronically Signed: Monty Crespo MD at 9:35 EST , Head/Neck CTA 07/02/21 08:11 IMPRESSION: Normal CTA Head and neck with contrast. Electronically Signed: Monty Crespo MD at 9:14 EST , EKG Initial EKG: Comments: Sinus rhythm with a rate of 66. Normal MT and QTc intervals. No obvious ischemic changes. No pacemaker spikes seen. Interpreted by emergency doctor Discharge Plan Triage Chief Complaint: Chest Pain ED Provider: Olegario Lee Dx/Rx/DC Orders Clinical Impression: Chest pain, Headache Instructions: Measuring Your Pain, Medicine for Pain Prescriptions: New nortriptyline 75 mg capsule 75 mg PO DAILY Qty: 14 RF: 0 oxycodone 5 mg tablet 5 mg PO BID PRN (Reason: pain) 3 Days Qty: 12 RF: 0 No Action losartan 50 MG tablet 100 mg PO DAILY RF: 0 loratadine 10 MG tablet 10 mg PO DAILY RF: 0 meloxicam 7.5 MG tablet 15 mg PO DAILY RF: 0 potassium chloride 10 MEQ tablet,ER particles/crystals 10 meq PO DAILY RF: 0 carvedilol 6.25 MG tablet 12.5 mg PO BID RF: 0 duloxetine 60 MG capsule,delayed release(DR/EC) 60 mg PO DAILY RF: 0 sotalol 120 mg Tablet 120 mg PO BID RF: 0 magnesium oxide 400 mg magnesium Tablet 400 mg PO DAILY RF: 0 gabapentin 300 mg Capsule 400 mg PO QHS RF: 0 triamcinolone acetonide [Nasacort] 55 mcg Aerosol,[place] 2 spray INTRANASAL BID RF: 0 cephalexin 500 mg Tablet 500 mg PO HUNTER RF: 0 Centrum Women 18-400 mg-mcg Tablet 1 tab PO DAILY RF: 0 cholecalciferol (vitamin D3) [Vitamin D3] 125 mcg (5,000 unit) Tablet 125 mcg PO DAILY RF: 0 buspirone 5 mg tablet 30 mg PO BID RF: 0 Stand Alone Forms: Work / School Excuse Primary Care Provider: Slim Denson Referrals: Slim Denson DO [Primary Care Provider] - Akiko Chao MD [STAFF PHYSICIAN] - 2 Days Disposition Disposition: Home, Self Care
[2021-07-02] MEDS: Ondansetron 4 MG/2 ML Vial IV (08:28)
[2021-07-02] MEDS: Morphine 4 MG/ML Syringe IV (08:28)
[2021-07-02 08:32] LABS: Absolute Lymphocyte Count 2.18 X10^3/uL (0.83-4.51); Absolute Neutrophil Count 2.8 X10^3/uL (2.0-7.7); Basophil# 0.15 X10^3/uL; Basophil% 2.6 % (0-1); Eosinophil# 0.14 X10^3/uL; Eosinophils% 2.4 % (0-5); Hematocrit 46.9 % (37-47); Hemoglobin 15.7 g/dL (12.0-15.0); Lymphocyte # 2.18 X10^3/ul (0.83-4.51); Lymphocyte % 38.1 % (19-41); Mean Corp Hgb Conc 33.5 g/dL (32-36); Mean Corpuscular Hgb 28.6 pg (27.0-32.0); Mean Corpuscular Volume 85.4 fL (81-99); Mean Platelet Vol. 10.3 fl (6.2-12.0); Monocyte# 0.43 X10^3/uL; Monocyte% 7.5 % (0-10); NRBC Flagged by Analyzer 0 % (0-5); Neutrophil # 2.81 X10^3/uL (2.7-7.7); Neutrophil % 49.2 % (47-70); Platelet Count 275 K/mm3 (150-450); RBC Distribution Width CV 13.5 % (11.6-14.6); RBC Distribution Width SD 42.4 fl (35.1-43.9); Red Blood Count 5.49 M/mm3 (4.2-5.4); White Blood Count 5.7 K/mm3 (4.4-11.0)
[2021-07-02 08:51] LABS: ALB/GLOB Ratio 1.1 RATIO (0.9-2.4); AST(SGOT) 17 U/L (15-37); Alanine Aminotransfer ALT/SGPT 23 U/L (13-56); Albumin, Serum 3.3 g/dL (3.2-5.0); Alkaline Phosphatase 47 U/L (45-117); Anion Gap 5 (5-15); BUN 16 mg/dL (7-18); BUN/Creat Ratio 18.8 RATIO (10-20); Calcium,Total 9.2 mg/dL (8.5-10.1); Chloride 109 mmol/L (98-107); Creatinine, Serum 0.85 mg/dL (0.55-1.02); EST Glomerular Filtration Rate 74 mL/min (>60); Est Glom Filt Rate - Afr Amer 89 mL/min (>60); Estimated Creatinine Clearance 56.43 ml/min; Globulin 2.9 g/dL (2.2-4.2); Glucose 131 mg/dL (74-106); Lipase 95 U/L (73-393); Potassium 4.1 mmol/L (3.5-5.1); Protein, Total 6.2 g/dL (6.4-8.2); Sodium Level 141 mmol/L (136-145); Troponin-I HS 5 pg/mL (3.0-54.0)
[2021-07-02 08:52] LABS: BNP,B-Type NATRIURETIC PEPTIDE 56.7 pg/mL (0-100)
[2021-07-02 09:42] LABS: Prothrombin Time (Protime)PT. 12.3 SECONDS (11.7-14.9)
[2021-07-02] MEDS: Ketorolac 15 MG/ML Vial IV (09:53)
[2021-07-02 10:50] VITALS: BP 126/47; PULSE 63; RESP 24; O2SAT 95
[2021-07-02] MEDS: HYDROmorphone 1 MG/ML Syringe IM (11:00)
[2021-07-02 11:02] LABS: Troponin-I HS 10 pg/mL (3.0-54.0)
[2021-07-02 11:05] VITALS: BP 103/43; PULSE 60; RESP 17; O2SAT 95
[2021-07-02] MEDS: Gabapentin 600 MG Tablet 300 MG PO (11:57)
[2021-07-02 12:47] VITALS: BP 108/45; PULSE 62; RESP 16; O2SAT 95
[2021-07-02] MEDS: oxyCODONE 5 MG Tablet 10 MG PO (12:52)
== END 2021-07-02 13:09 | disposition home or self-care (01) ==
PROVIDERS: Emergency Provider Emergency Medicine; PCP Student in an Organized Health Care Education/Training Program; Visit Provider Emergency Medicine
DX: R07.9 Chest pain, unspecified (principal); Z87.891 Personal history of nicotine dependence; I10 Essential (primary) hypertension; E78.00 Pure hypercholesterolemia, unspecified; R51.9 Headache, unspecified
CPT/HCPCS: 36415; 70496; 70498; 71045; 71275; 80053; 83690; 83880; 84484; 85025; 85610; 93005; 99285; J7040; Q9967; A4216; J2405

== ENCOUNTER 2021-07-03 14:17 | Inpatient (IN) | payer OTHER, SELFPAY ==
[2021-07-03] VITALS (18 sets, daily range): BP systolic 60–138; BP diastolic 35–111; PULSE 90–110; RESP 17–30; TEMP 36.3–37.2; O2SAT 80–96; BMI 37.4; BMI 35.4
--- NOTE | 2021-07-03 14:57 | EX.ED.VIS.HA ---
HPI History of Present Illness Chief Complaint: Overdose Informant: patient Onset/Context/Timing Onset: Yesterday Context: Sudden Timing: Continuous Quality -Headache: Positive for Sharp Location: Right side of head Worsened by: Nothing Relieved by: Nothing Associated Symptoms/Injury Associated Symptoms: Positive for Nausea and Vomiting; Negative for Fever, Sore Throat, Sinus Pressure, Numbness, Tingling, Preceding Aura, Visual Changes, Blurred Vision, Photophobia and Visual Loss Injury - TRAN: Negative for Direct Trauma Narrative Narrative: Patient presents with a headache that began yesterday. Patient states it began rather suddenly yesterday. Patient was seen here yesterday for this. Patient had a negative CTA of the head neck and chest. Patient states that her symptoms improved yesterday and she was able to sleep last night without any problems. Patient was given a prescription for nortriptyline and oxycodone. Patient took 3 doses of oxycodone with minimal relief. Patient describes her pain as sharp. Patient states the pain is localized to the right side of her head. Patient states nothing makes it worse and nothing makes it better. [facility] Medical History Anemia Arthritis COVID-19 Endometrial cancer Generalized anxiety disorder History of traumatic brain injury Hypertension ICD (implantable cardioverter-defibrillator) in place Major depressive disorder, recurrent severe without psychotic features Pneumonia due to 2019-nCoV Right inguinal hernia Seizures Stroke Urinary retention Ventricular tachycardia Home Medications loratadine 10 mg PO DAILY 04/25/20 [History Last Taken 01/31/21] losartan 100 mg PO DAILY 04/25/20 [History Last Taken 01/31/21] meloxicam 15 mg PO DAILY 04/25/20 [History Last Taken 01/31/21] potassium chloride 10 meq PO DAILY 05/26/20 [History Last Taken 01/31/21] carvedilol 12.5 mg PO BID 06/15/20 [History Last Taken 01/31/21] duloxetine 60 mg PO DAILY 06/15/20 [History Last Taken 01/31/21] magnesium oxide 400 mg PO DAILY 10/06/20 [History Last Taken 01/31/21] sotalol 120 mg PO BID 10/06/20 [History Last Taken 01/31/21] gabapentin 400 mg PO QHS 04/01/21 [History Last Taken Unknown] buspirone 30 mg PO BID 07/02/21 [History Last Taken Unknown] cephalexin 500 mg PO DAILY 07/02/21 [History Last Taken Unknown] cholecalciferol (vitamin D3) [Vitamin D3] 125 mcg PO DAILY 07/02/21 [History Last Taken Unknown] [id number] acid [Centrum Women] 1 tab PO DAILY 07/02/21 [History Last Taken Unknown] nortriptyline 75 mg PO DAILY #14 cap 07/02/21 [Rx Last Taken Unknown] oxycodone 5 mg PO BID PRN 3 Days #12 tab 07/02/21 [Rx Last Taken Unknown] triamcinolone acetonide [Nasacort] 2 spray INTRANASAL BID 07/02/21 [History Last Taken Unknown] Allergy/AdvReac Type Severity Reaction Status Date / Time nitrofurantoin Allergy Hives Verified 07/03/21 21:28 [From Macrobid] Penicillins [PCN] Allergy Swelling Verified 07/03/21 21:28 erythromycin base AdvReac Upset Verified 07/03/21 21:28 [Erythromycin Base] Stomach sulfamethoxazole AdvReac Upset Verified 07/03/21 21:28 [From Bactrim] Stomach trimethoprim [From Bactrim] AdvReac Upset Verified 07/03/21 21:28 Stomach Family History Mother Cancer Hx endometrial CA. Father Myocardial infarction Heart disease Surgical History H/O: hysterectomy (~2005) History of cholecystectomy s/p right inguinal hernia repair with mesh (~06/27/18) Status post club foot correction at Status post implantation of automatic cardioverter/defibrillator (AICD) Social History household members: spouse Smoking Status: Former smoker alcohol intake: current alcohol intake frequency: other substance use type: does not use ROS ROS ED Constitutional Constitutional ED: Denies chills or fever(s) Eyes Eyes: Denies blurry vision or change in vision ENT ENT ED: Denies rhinorrhea or sore throat Cardiovascular Cardiovascular: Reports chest pain; Denies palpitations Respiratory/Chest Respiratory/Chest: Denies cough or dyspnea Gastrointestinal Gastrointestinal: Reports nausea and vomiting Genitourinary Genitourinary ED: Denies dysuria or hematuria Musculoskeletal Musculoskeletal: Reports neck pain; Denies back pain Integumentary Denies abscess or rash Neurologic Neurologic: Reports headache(s); Denies weakness Allergic/Immunologic Allergic/Immunologic ED: Denies mouth swelling or urticaria EXAM Physical Exam Const Vital Signs: 07/03/21 14:20 07/03/21 14:24 07/03/21 14:28 Temperature 97.4 F L Temperature Source Oral Pulse Rate 98 Respiratory Rate 20 H Blood Pressure 70/56 L Blood Pressure Mean 60 Pulse Ox 80 88 89 Oxygen Delivery Method Room Air Nasal Cannula Nasal Cannula Oxygen Flow Rate (L/min) 4 4 07/03/21 14:30 07/03/21 14:31 07/03/21 14:44 Temperature Temperature Source Pulse Rate 109 H Respiratory Rate 26 H Blood Pressure 78/50 L 60/35 L 96/47 L Blood Pressure Mean 59 43 63 Pulse Ox 91 92 94 Oxygen Delivery Method Nasal Cannula Nasal Cannula Nasal Cannula Oxygen Flow Rate (L/min) 5 5 5 07/03/21 15:44 07/03/21 16:25 07/03/21 16:39 Temperature Temperature Source Pulse Rate 110 H 103 H 100 Respiratory Rate 21 H Blood Pressure 82/73 L 138/111 H 101/50 L Blood Pressure Mean 76 120 67 Pulse Ox 90 Oxygen Delivery Method Nasal Cannula Oxygen Flow Rate (L/min) 5 07/03/21 16:54 07/03/21 17:15 07/03/21 17:16 Temperature Temperature Source Pulse Rate 103 H Respiratory Rate 30 H Blood Pressure 103/51 L Blood Pressure Mean 68 Pulse Ox 94 95 95 Oxygen Delivery Method Nasal Cannula Nasal Cannula Nasal Cannula Oxygen Flow Rate (L/min) 5 5 5 07/03/21 18:21 07/03/21 19:06 Temperature Temperature Source Pulse Rate 96 104 H Respiratory Rate 17 20 H Blood Pressure 93/52 L Blood Pressure Mean 65 Pulse Ox 95 Oxygen Delivery Method Oxygen Flow Rate (L/min) Positive well nourished and well developed General Appearance ED: well developed HEENT Reports normocephalic and moist mucous membranes atraumatic Neck supple and no JVD Resp normal respiratory effort and clear to auscultation bilaterally Cardio regular rate, regular rhythm and no murmurs GI normal to inspection, nondistended, normoactive bowel sounds, non-tender and non-distended Palpation: soft Extremity normal to inspection General Extremety ED: Negative for edema or tenderness General Extremity: Negative for edema Neuro oriented x3, CN's II-XII intact bilaterally and no sensory deficits noted Sensorium / Orientation: awake and alert Motor Exam: strength 5/5 throughout Psych mental status grossly normal Skin no rashes or lesions noted MDM MDM MDM Narrative Medical decision making narrative: Patient was given IV fluids, Compazine, and Benadryl. EKG was obtained. On my interpretation, was there is atrial fibrillation with occasional sinus beats and occasional with a rate of 107. There is a right bundle branch block pattern noted. There are no acute ST or T wave changes. Portable 1 view chest x-ray was obtained. On my interpretation, lung mullins show bibasilar atelectasis. There is normal cardiac silhouette. Bony thorax is normal. There is no acute process noted. Radiologist also interpreted the x-ray and agrees. CBC was within normal limits. Comprehensive metabolic profile showed an elevated BUN and creatinine of 25 and 1.4. These are consistent with prior results. High-sensitivity troponin was elevated at 1309. Patient was given aspirin. Patient states her headache has improved on reevaluation. Patient was sleeping when I walked in the room on reevaluation. Patient woke up to tactile stimulation. Patient was immediately awake and alert. Patient answers questions appropriately. Patient denies any chest pain. Case was discussed with the hospitalist. She will admit the patient to her service. Case was also discussed with cardiology. He recommended starting the patient on a heparin drip. This was ordered. Patient and family understood and were agreeable with the plan. All questions were answered. Lab Data Attestation: I reviewed the patient's lab results. Labs: Laboratory Results - last 24 hr 07/03/21 07/03/21 07/03/21 04:26 15:50 15:50 WBC 10.3 RBC 5.15 Hgb 14.9 Hct 45.7 MCV 88.7 MCH 28.9 MCHC 32.6 RDW Std Deviation 45.2 H RDW Coeff of Love 14.0 Plt Count 181 MPV 10.7 Immature Gran % (Auto) 0.600 Neut % (Auto) 70.5 H Lymph % (Auto) 15.3 L Waller % (Auto) 12.4 H Eos % (Auto) 0.2 Baso % (Auto) 1.0 Absolute Neuts (auto) 7.2 Absolute Lymphs (auto) 1.57 Nucleated RBC % 0 Sodium 139 Potassium 4.6 Chloride 110 H Carbon Dioxide 23.0 Anion Gap 6 BUN 25 H Creatinine 1.40 H Estim Creat Clear Calc 34.26 Est GFR (MDRD) Af Amer 50 L Est GFR (MDRD) Non-Af 41 L BUN/Creatinine Ratio 17.9 Glucose 100 Lactic Acid Cancelled Calcium 8.8 Magnesium Total Bilirubin 0.50 AST 33 ALT 32 Alkaline Phosphatase 48 Troponin I High Sens 1309 H* Total Protein 5.8 L Albumin 3.1 L Globulin 2.7 Albumin/Globulin Ratio 1.1 Urine Color Urine Clarity Urine pH Ur Specific Jud Urine Protein Urine Glucose (UA) Urine Ketones Urine Occult Blood Urine Nitrite Urine Bilirubin Urine Urobilinogen Ur Leukocyte Esterase Urine RBC Urine WBC Ur Squamous Epith Cells Urine Bacteria Urine Mucus 07/03/21 07/03/21 07/03/21 19:31 19:40 19:40 WBC RBC Hgb Hct MCV MCH MCHC RDW Std Deviation RDW Coeff of Love Plt Count MPV Immature Gran % (Auto) Neut % (Auto) Lymph % (Auto) Waller % (Auto) Eos % (Auto) Baso % (Auto) Absolute Neuts (auto) Absolute Lymphs (auto) Nucleated RBC % Sodium Potassium Chloride Carbon Dioxide Anion Gap BUN Creatinine Estim Creat Clear Calc Est GFR (MDRD) Af Amer Est GFR (MDRD) Non-Af BUN/Creatinine Ratio Glucose Lactic Acid Calcium Magnesium 2.2 Total Bilirubin AST ALT Alkaline Phosphatase Troponin I High Sens 1245 H* Total Protein Albumin Globulin Albumin/Globulin Ratio Urine Color Yellow Urine Clarity Clear Urine pH 5.0 Ur Specific Jud 1.020 Urine Protein 30 H Urine Glucose (UA) Normal Urine Ketones 5 H Urine Occult Blood Negative Urine Nitrite Negative Urine Bilirubin 1 H Urine Urobilinogen Normal Ur Leukocyte Esterase 25 H Urine RBC 0 SEEN Urine WBC 0-5 SEEN Ur Squamous Epith Cells 0-5 SEEN Urine Bacteria 0 SEEN Urine Mucus 1+ Radiography Chest X-Ray - ED: 1 View, Read by ED Physician and Read by Radiologist Diagnostic Testing: Clinical Impression(s) from Imaging Studies Chest X-Ray 07/03/21 17:00 IMPRESSION: Poor inspiration with some bibasilar atelectasis. Electronically Signed: Charlie Alejandro MD at 17:19 EST , Treatment and Re-Evaluation Narrative: Vital signs were reviewed prior to admission. Blood pressure is 93/52. Patient is asymptomatic with this. Remaining vital signs are stable. Discharge Plan Dx/Rx/DC Orders Clinical Impression: Non-STEMI (non-ST elevated myocardial infarction) Disposition Disposition: Acute Care Hospital [facility] Discharge Date/Time: 07/03/21 21:01
--- NOTE | 2021-07-03 15:01 | ED.RN ---
spoke with provider regarding giving pt benadryl. reminded provider pt given narcan d/t pt being lethargic after taking oxycontin. provider stated he was aware of this and continues to want benadryl given for hernandez. this rn concerned by will become more lethargic with benadryl. provider states she was awake and talking. pt does awaken when spoken too or with touch. this rn remain concerned regarding pt remain lethargic and falling asleep.
--- NOTE | 2021-07-03 15:03 | EKG12_ITS ---
Test Reason : AM EKG Blood Pressure : / mmHG Vent. Rate : 089 BPM Atrial Rate : 089 BPM P-R Int : 128 ms QRS Dur : 080 ms QT Int : 380 ms P-R-T Axes : 020 019 -88 degrees QTc Int : 462 ms Sinus rhythm with frequent Premature ventricular complexes in a pattern of bigeminy ST & T wave abnormality, consider inferior ischemia Prolonged QT Abnormal ECG When compared with ECG of 03-JUL-2021 15:15, MANUAL COMPARISON REQUIRED, DATA IS UNCONFIRMED Confirmed by FALLON GOODWIN, HUGO ([id number]), metropolitan editor СЕРГЕЙ VALDERRAMA ([id number]) on 07/06/2021 11:20:56 AM Referred By: CLIFTON Confirmed By:HUGO LEHMAN MD
[2021-07-03] MEDS: 0.9% Normal Saline 1,000 ML 999 ML IV (15:06)
[2021-07-03] MEDS: proCHLORPERazine 10 MG/2 ML Vial IV (15:18)
[2021-07-03] MEDS: DiphenhydrAMINE 50 MG/ML Syringe 25 MG IV (15:19)
[2021-07-03 16:00] LABS: Absolute Lymphocyte Count 1.57 X10^3/uL (0.83-4.51); Absolute Neutrophil Count 7.2 X10^3/uL (2.0-7.7); Eosinophil# 0.02 X10^3/uL; Eosinophils% 0.2 % (0-5); Hematocrit 45.7 % (37-47); Hemoglobin 14.9 g/dL (12.0-15.0); Lymphocyte # 1.57 X10^3/ul (0.83-4.51); Lymphocyte % 15.3 % (19-41); Mean Corp Hgb Conc 32.6 g/dL (32-36); Mean Corpuscular Hgb 28.9 pg (27.0-32.0); Mean Corpuscular Volume 88.7 fL (81-99); Mean Platelet Vol. 10.7 fl (6.2-12.0); Monocyte# 1.27 X10^3/uL; Monocyte% 12.4 % (0-10); NRBC Flagged by Analyzer 0 % (0-5); Neutrophil # 7.24 X10^3/uL (2.7-7.7); Neutrophil % 70.5 % (47-70); Platelet Count 181 K/mm3 (150-450); RBC Distribution Width SD 45.2 fl (35.1-43.9); Red Blood Count 5.15 M/mm3 (4.2-5.4); White Blood Count 10.3 K/mm3 (4.4-11.0)
[2021-07-03 16:23] LABS: ALB/GLOB Ratio 1.1 RATIO (0.9-2.4); AST(SGOT) 33 U/L (15-37); Alanine Aminotransfer ALT/SGPT 32 U/L (13-56); Albumin, Serum 3.1 g/dL (3.2-5.0); Alkaline Phosphatase 48 U/L (45-117); Anion Gap 6 (5-15); BUN 25 mg/dL (7-18); BUN/Creat Ratio 17.9 RATIO (10-20); Calcium,Total 8.8 mg/dL (8.5-10.1); Chloride 110 mmol/L (98-107); EST Glomerular Filtration Rate 41 mL/min (>60); Est Glom Filt Rate - Afr Amer 50 mL/min (>60); Estimated Creatinine Clearance 34.26 ml/min; Globulin 2.7 g/dL (2.2-4.2); Glucose 100 mg/dL (74-106); Potassium 4.6 mmol/L (3.5-5.1); Protein, Total 5.8 g/dL (6.4-8.2); Sodium Level 139 mmol/L (136-145); Troponin-I HS 1309 pg/mL (3.0-54.0)
[2021-07-03] MEDS: Aspirin 81 MG TAB.CHEW 324 MG PO (16:40)
--- NOTE | 2021-07-03 17:00 | RAD_ITS ---
STUDY: X-RAY CHEST REASON FOR EXAM: Female, 56 years old. Hypotension TECHNIQUE: Single AP portable view of the chest. COMPARISON: 07/02/2021 FINDINGS: Left subclavian dual-lead AICD which is unchanged. Poor inspiration with some bibasilar atelectasis. There is no demonstrated pleural abnormality. There is moderate cardiac enlargement. Normal mediastinum and johnnie. Normal visualized pulmonary arteries. Normal visualized aortic arch and descending thoracic aorta. Normal visualized thoracic spine. Normal visualized ribs, clavicles, and shoulders. There is no demonstrated abnormality of the visualized soft tissue structures of the upper abdomen. RAD/Chest 1 View (Portable) IMPRESSION: Poor inspiration with some bibasilar atelectasis. Electronically Signed: Charlie Alejandro MD at 17:19 EST ,
[2021-07-03 19:39] LABS: Bacteria 0 SEEN /hpf (None Seen); Red Blood Cells-Urine 0 SEEN /hpf (0-5)
--- NOTE | 2021-07-03 19:42 | HP.PCM.HOS_ITS ---
HPI - General General Date of Admission: 07/03/21 Date of Service: 07/03/21 Chief Complaint: Suspected accidental opiate overdose, increased lethargy HPI Narrative The patient is a 56 y/o F w/ PMHx: Hx VT s/p AICD placement, Obesity, Hx CVA w/ Hx TBI, HTN, HLD, Seizure disorder, Anxiety and Depression, Chronic anemia, Hx COVID-10 illness, CLARKE who presents to the [facility] ED on 07/03/21 with history of headache that began the day prior noted to have come on suddenly with patient actual evaluation in the ED with negative CTA of the head and neck as well as chest at that time with symptom improvement and patient noted she felt improved with no difficulty sleeping with prescription at that time for nortriptyline as well as oxycodone with unfortunate return of her headache on day of presentation with associated nausea as well as emesis with self administration of 3 doses of oxycodone on day of presentation with unfortunately ongoing recurrent sharp pain localized to the right side of her head with onset of fatigue, lethargy and hypoxia prompting ED evaluation. Patient denies any chest discomfort, chest tightness or significant dyspnea complaint work-up in the ED included T 97.4, heart rate 98, BP initially 70/56, respiratory rate 20, initially 80% on room air with most recent vital signs heart rate 104, BP 93/52, respiratory rate 20, 95% on 5 L nasal cannula, CBC with WC 10.3, hemoglobin 14.9, platelet 181 without marked shift, CMP with chloride 110, BUN/creat 25/1.40, initial cardiac troponin 1309, urinalysis pending per ED, chest x-ray with bibasilar atelectasis otherwise no acute cardiopulmonary findings, EKG sinus beats with ? intermittent difficulty noting P waves, occasional PVC, ? wandering pacemaker. In the ED p atient administered ASA 324 mg x 1, benadryl IV x 1, prochlorperazine. [facility] Medical History Anemia Arthritis COVID-19 Endometrial cancer Generalized anxiety disorder History of traumatic brain injury Hypertension ICD (implantable cardioverter-defibrillator) in place Major depressive disorder, recurrent severe without psychotic features Pneumonia due to 2019 Right inguinal hernia Seizures Stroke Urinary retention Ventricular tachycardia Home Medications loratadine 10 mg PO DAILY 04/25/20 [History Last Taken 01/31/21] losartan 100 mg PO DAILY 04/25/20 [History Last Taken 01/31/21] meloxicam 15 mg PO DAILY 04/25/20 [History Last Taken 01/31/21] potassium chloride 10 meq PO DAILY 05/26/20 [History Last Taken 01/31/21] carvedilol 12.5 mg PO BID 06/15/20 [History Last Taken 01/31/21] duloxetine 60 mg PO DAILY 06/15/20 [History Last Taken 01/31/21] magnesium oxide 400 mg PO DAILY 10/06/20 [History Last Taken 01/31/21] sotalol 120 mg PO BID 10/06/20 [History Last Taken 01/31/21] gabapentin 400 mg PO QHS 04/01/21 [History Last Taken Unknown] buspirone 30 mg PO BID 07/02/21 [History Last Taken Unknown] cephalexin 500 mg PO HUNTER 07/02/21 [History Last Taken Unknown] cholecalciferol (vitamin D3) [Vitamin D3] 125 mcg PO DAILY 07/02/21 [History Last Taken Unknown] qadsueekczpa-plya-ollde acid [Centrum Women] 1 tab PO DAILY 07/02/21 [History Last Taken Unknown] nortriptyline 75 mg PO DAILY #14 cap 07/02/21 [Rx Last Taken Unknown] oxycodone 5 mg PO BID PRN 3 Days #12 tab 07/02/21 [Rx Last Taken Unknown] triamcinolone acetonide [Nasacort] 2 spray INTRANASAL BID 07/02/21 [History Last Taken Unknown] Allergy/AdvReac Type Severity Reaction Status Date / Time Penicillins [PCN] Allergy Swelling Verified 07/03/21 14:19 erythromycin base AdvReac Upset Verified 07/03/21 14:19 [Erythromycin Base] Stomach sulfamethoxazole AdvReac Upset Verified 07/03/21 14:19 [From Bactrim] Stomach trimethoprim [From Bactrim] AdvReac Upset Verified 07/03/21 14:19 Stomach MACROBID Allergy Mild Hives Uncoded 07/03/21 14:19 Family History Mother Cancer Hx endometrial CA. Father Myocardial infarction Heart disease Surgical History H/O: hysterectomy (~2005) History of cholecystectomy s/p right inguinal hernia repair with mesh (~06/27/18) Status post club foot correction at Status post implantation of automatic cardioverter/defibrillator (AICD) Social History household members: spouse Smoking Status: Former smoker alcohol intake: current alcohol intake frequency: other substance use type: does not use ROS Review of Systems ROS Unobtainable: due to encephalopathy Vital Signs Vital Signs Vital Signs: 07/03/21 14:20 07/03/21 14:24 07/03/21 14:28 Temperature 97.4 F L Temperature Source Oral Pulse Rate 98 Respiratory Rate 20 H Blood Pressure 70/56 L Blood Pressure Mean 60 Pulse Ox 80 88 89 Oxygen Delivery Method Room Air Nasal Cannula Nasal Cannula Oxygen Flow Rate (L/min) 4 4 07/03/21 14:30 07/03/21 14:31 07/03/21 14:44 Temperature Temperature Source Pulse Rate 109 H Respiratory Rate 26 H Blood Pressure 78/50 L 60/35 L 96/47 L Blood Pressure Mean 59 43 63 Pulse Ox 91 92 94 Oxygen Delivery Method Nasal Cannula Nasal Cannula Nasal Cannula Oxygen Flow Rate (L/min) 5 5 5 07/03/21 15:44 07/03/21 16:25 07/03/21 16:39 Temperature Temperature Source Pulse Rate 110 H 103 H 100 Respiratory Rate 21 H Blood Pressure 82/73 L 138/111 H 101/50 L Blood Pressure Mean 76 120 67 Pulse Ox 90 Oxygen Delivery Method Nasal Cannula Oxygen Flow Rate (L/min) 5 07/03/21 16:54 07/03/21 17:15 07/03/21 17:16 Temperature Temperature Source Pulse Rate 103 H Respiratory Rate 30 H Blood Pressure 103/51 L Blood Pressure Mean 68 Pulse Ox 94 95 95 Oxygen Delivery Method Nasal Cannula Nasal Cannula Nasal Cannula Oxygen Flow Rate (L/min) 5 5 5 07/03/21 18:21 07/03/21 19:06 Temperature Temperature Source Pulse Rate 96 104 H Respiratory Rate 17 20 H Blood Pressure 93/52 L Blood Pressure Mean 65 Pulse Ox 95 Oxygen Delivery Method Oxygen Flow Rate (L/min) Weight Weight: 198 lb 3.129 oz Body Mass Index (BMI) 37.4 Physical Exam Narrative Physical Examination: General: Patient will awaken with stimuli, becomes alert for several moments and will discuss things but does quickly fall back asleep, oriented to self, place and eventually gives correct year and month but is very fatigued, no acute distress, denies any current pain. Skin: Normal color, normal turgor, no icterus, no cyanosis. HEENT: AT/NC, EOMI, PERRLA, dry MM, no carotid bruits or JVD noted. Lungs: Diminished, greater bases, mildly decreased effort, no rales, ronchi or wheezing. Heart: Irregular irregular; no gallop, rub audible. Abdomen: Soft, obese, NTTP, ND, distant mildly hyperactive BS, no HSM. Extremities: No cyanosis, clubbing, or edema. Neurological: Patient will awaken with stimuli, becomes alert for several moments and will discuss things but does quickly fall back asleep, oriented to self, place and eventually gives correct year and month but is very fatigued, cognitive function not baseline intact; pupils equally reactive to light and accommodation but sluggish, cranial nerves grossly normal, moving all 4 extremities, strength severely globallly decreased. Psychiatric: Affect appears lethargic, flat, no acute evidence of depressive or anxiety feelings. Results Lab / Micro Data Result Diagrams: 07/03/21 15:50 07/03/21 15:50 Labs: Laboratory Results - last 24 hr 07/03/21 04:26: Lactic Acid Cancelled 07/03/21 15:50: WBC 10.3, RBC 5.15, Hgb 14.9, Hct 45.7, MCV 88.7, MCH 28.9, MCHC 32.6, RDW Std Deviation 45.2 H, RDW Coeff of Love 14.0, Plt Count 181, MPV 10.7, Immature Gran % (Auto) 0.600, Neut % (Auto) 70.5 H, Lymph % (Auto) 15.3 L, [place] % (Auto) 12.4 H, Eos % (Auto) 0.2, Baso % (Auto) 1.0, Absolute Neuts (auto) 7.2, Absolute Lymphs (auto) 1.57, Nucleated RBC % 0 07/03/21 15:50: Sodium 139, Potassium 4.6, Chloride 110 H, Carbon Dioxide 23.0, Anion Gap 6, BUN 25 H, Creatinine 1.40 H, Estim Creat Clear Calc 34.26, Est GFR (MDRD) Af Amer 50 L, Est GFR (MDRD) Non-Af 41 L, BUN/Creatinine Ratio 17.9, Glucose 100, Calcium 8.8, Total Bilirubin 0.50, AST 33, ALT 32, Alkaline Phosphatase 48, Troponin I High Sens 1309 H*, Total Protein 5.8 L, Albumin 3.1 L , Globulin 2.7, Albumin/Globulin Ratio 1.1 Radiology Impression Chest X-Ray 07/03/21 17:00 IMPRESSION: Poor inspiration with some bibasilar atelectasis. Electronically Signed: Charlie Alejandro MD at 17:19 EST Reading Location ID and State: [id number] [facility] Tel , Service support , Assessment & Plan Assessment/Plan (1) Acute respiratory failure with hypoxia: (2) Non-STEMI (non-ST elevated myocardial infarction): (3) Accidental overdose: QUALIFIERS: Encounter type: initial encounter Qualified Code(s): T50.901A - Poisoning by unspecified drugs, medicaments and biological substances, accidental (unintentional), initial encounter (4) Headache: QUALIFIERS: Headache type: unspecified Headache chronicity fabio peter: acute headache Intractability: intractable Qualified Code(s): R51.9 - Headache, unspecified PLAN: The patient is a 56 y/o F w/ PMHx: Hx VT s/p AICD placement, Obesity, Hx CVA w/ Hx TBI, HTN, HLD, Seizure disorder, Anxiety and Depression, Chronic anemia, Hx COVID-10 illness, CLARKE who presents to the [facility] ED on 07/03/21 with history of headache that began the day prior noted to have come on suddenly with patient actual evaluation in the ED with negative CTA of the head and neck as well as chest at that time with symptom improvement and patient noted she felt improved with no difficulty sleeping with prescription at that time for nortriptyline as well as oxycodone with unfortunate return of her headache on day of presentation with associated nausea as well as emesis with self administration of 3 doses of oxycodone on day of presentation with unfortunately ongoing recurrent sharp pain localized to the right side of her head with onset of fatigue, lethargy and hypoxia. #1. Acute NSTEMI, suspect likely type II with demand secondary to hypoxia from overdose w/ Unclear rhythm: EKG in ED w/ sinus beats with ? intermittent difficulty noting P waves, occasional PVC, ? wandering pacemaker sent to cardiology for evaluation, CXR w/ bibasilar atelectasis, Trop elevated, 1309. Will admit to PCU, maintain on a monitored bed, continue serial cardiac enzymes and EKGs. Admission EKG sent to [facility] given atypical appearance. Obtain magnesium level upon admission. Start Heparin drip. Continue medical management. Cardiology consulted. Magnesium requested. FLP in AM. Echocardiogram requeste d. Maintain NPO after midnight. ASA, NG, morphine only if not extremely sedate and if has onset chest pain. #2. Acute Persistent Headache: Will hold narcotic therapy give this may exacerbate migraine unless needed for chest pain, improved in the ED with their regimen, if returns and intractable will initiate IV VPA 500mg Q6 hours, IV Decadron 4mg Q6 hours, hold on toradol given NSTEMI concurrently, hold on neurotin given lethargy but improves add. Given AICD will be unable to obtain MRI of the brain and CTA head, neck and chest were not marked appearing day prior. Will consider Neurology consultation. #3. Acute Hypoxic Respiratory Failure, Suspect medication related with narcotics and nortriptyline: Suspect it is more the combination, will maintain on monitor, continue hydration, hold sedative regimen, supplement oxygen as needed, CXR without acute findings, as noted in the setting of NSTEMI, unfortunately compounded by COVID PNA long-hauler syndrome (01/2021). #4. Mild acute renal insufficiency: Admission BUN/creatinine 25/1.40, baseline creatinine 0.7-0.9, will continue judicious hydration, repeat CMP in AM. #5. Hypertension: We will hold all hypertensive regimen given hypotension upon ED presentation, continue hydration, resume medications once appropriate. #6. Anxiety and Depression: We will hold patient BuSpar regimen, continue duloxetine if able, resume BuSpar once mental status and respiratory status have improved. #7. Hx CVA w/ Hx TBI with reported seizure disorder: Patient only on gabapentin chronically and suspect this is likely more neuropathy related, temporally holding given sedation, not on any antielliptic drugs per review of current regimen, suspect likely this was related to prior TBI, will continue aspirin, statin, heparin drip as noted, holding all hypertensive medications given hypotension as noted. #8. History of VT: Status post AICD placement. #9. CLARKE: We will place on CPAP nightly #10. DVT prophylaxis: SCDs, heparin drip as noted. Charges/Coding Visit Charges Inpatient E&M: 22093 Init Hosp L3
[2021-07-03 19:43] LABS: Color, Urine Yellow (Yellow); Glucose, Dipstick Normal (Normal); Ketone-Dipstick 5 mg/dl (Negative); Leukocyte Esterase-Dipstick 25 /ul (Negative); Nitrite-Dipstick Negative (Negative); Occult Blood-Urine Negative /ul (Negative); Protein-Dipstick 30 mg/dl (Negative); Urine Clarity Clear (Clear); Urine Urobilinogen Normal (Normal)
[2021-07-03 19:50] LABS: Urine Bilirubin Dipstick 1 mg/dL (Negative)
[2021-07-03 19:53] LABS: Mucous, Urine 1+ /hpf (<or=2+); Squamous Epithelial Cells - UA 0-5 SEEN /hpf (5-10); White Blood Cells 0-5 SEEN /hpf (0-5)
[2021-07-03 20:17] LABS: Troponin-I HS 1245 pg/mL (3.0-54.0)
[2021-07-03 20:23] LABS: Magnesium 2.2 mg/dL (1.6-2.6)
--- NOTE | 2021-07-03 21:02 | ECHOD_ITS ---
Reason For Study: NSTEMI Procedure This was a 2D Doppler, Color Flow transthoracic echocardiogram. Exam performed portable in patient room. Left Ventricle Normal left ventricle. The estimated ejection fraction is 55-60 %. Right Ventricle Normal right ventricle. Normal systolic function. Atria Normal left atrium. Normal right atrium. Mitral Valve The mitral valve is structurally normal. No prolapse or stenosis seen. Mild (1+) mitral valve insufficiency. Tricuspid Valve Normal tricuspid valve. Aortic Valve Dissection Flap/ascending aortic dissection extending into Abdominal aorta Moderate AI. Moderate (2+) eccentric aortic valve insufficiency. Pulmonic Valve The pulmonic valve is not well visualized. Great Vessels Aortic root dissection. Pericardium/Pleural No pericardial effusion. MMode/2D Measurements & Calculations LVIDd: 3.6 cm IVSd: 1.4 cm Ao root diam: 4.3 cm LVIDs: 1.8 cm LVPWd: 1.3 cm FS: 51.0 % LAV(MOD-sp4): 58.7 ml LVAd ap4: 24.4 cm2 SV(MOD-sp4): 50.4 ml LVLd ap4: 7.2 cm EDV(MOD-sp4): 65.5 ml EDV(sp4-el): 70.1 ml LVAs ap4: 10.7 cm2 LVLs ap4: 6.2 cm ESV(MOD-sp4): 15.1 ml ESV(sp4-el): 15.5 ml EF(MOD-sp4): 77.0 % EF(sp4-el): 77.8 % SV(sp4-el): 54.6 ml LA A4 area: 19.6 cm2 LA dimension(2D): 3.8 cm RA A4 area: 15.9 cm2 Doppler Measurements & Calculations MV E max maría elena: 114.3 cm/sec Ao V2 max: 107.0 cm/sec AI max maría elena: 297.4 cm/sec MV A max maría elena: 38.8 cm/sec Ao max P.6 mmHg AI max P.4 mmHg MV E/A: 2.9 AI dec slope: 533.0 cm/sec2 AI P1/2t: 163.4 msec LV V1 max: 91.0 cm/sec LV V1 max P.3 mmHg ECHO/Echo Complete Interpretation Summary The estimated ejection fraction is 55-60 %. Dissection Flap/ascending aortic dissection extending into Abdominal aorta Moderate AI ICD/Pacer lead on R.side Ordering Physician: Lucero Us Referring Physician: Slim Denson Performed By: Chapis Claros RDCS
[2021-07-03] MEDS: 0.9% Normal Saline 1,000 ML 125 ML IV (21:57)
--- NOTE | 2021-07-03 23:47 | CPS ---
Pt refusing CPAP at this time
--- NOTE | 2021-07-03 23:52 | PCM.HOSP.N ---
Hospitalist Note Significantly difficult access with several tries per staff including ICU nurses. Lab also unable to draw any labs including coags needed to start heparin drip. Discussed with patient and she was loath to have a central line but was amenable to trying an easy IJ. The region was cleaned in a standard fashion and ultrasound guidance was used to obtain access with catheter placement with lines drawn and flushed without difficulty and covered in appropriate fashion.
[2021-07-04] VITALS (19 sets, daily range): BP systolic 105–156; BP diastolic 40–89; PULSE 87–101; RESP 18–36; TEMP 36.3–36.7; O2SAT 85–98
[2021-07-04] MEDS: Atorvastatin Calcium 80 MG Tablet PO (00:06)
[2021-07-04] MEDS: Sotalol Hydrochloride 80 MG Tablet 120 MG PO (00:06)
[2021-07-04 00:09] LABS: International Normalized Ratio 1.1
[2021-07-04 00:25] LABS: Partial Thromboplast Time 31.2 Seconds (24.1-36.2)
[2021-07-04 00:35] LABS: Lactic Acid 0.8 mmol/L (0.4-1.9)
--- NOTE | 2021-07-04 00:38 | NURSING ---
Lab unable to draw labs ordered. Multiple attempts by other ICU and ED RNs, also ED RN looked w/ US. Unable to obtain labs, Dr. Us notified. to bedside to place R IJ.
[2021-07-04] MEDS: HEPARIN/D5w 25,000 UNITS 25,000 UNITS/250 ML IV.SOLN. 12 UNITS IV (00:39)
[2021-07-04 00:46] LABS: Troponin-I HS 1215 pg/mL (3.0-54.0)
[2021-07-04] MEDS: Heparin Injection (Vial) 5,000 UNIT/ML VIAL 6000 UNIT IV (01:09)
--- NOTE | 2021-07-04 05:16 | NURSING ---
This RN went into room to plug in beeping IV pump and found R IJ IV lying beside pt's neck. When questioned what had happened, pt stated, I thought I was just sweaty and denied knowing what happened to the IV. Dr. Us notified and order placed for midline. Access[facility] called.
--- NOTE | 2021-07-04 05:55 | EKG12_ITS ---
Test Reason : OVERDOSE Blood Pressure : / mmHG Vent. Rate : 107 BPM Atrial Rate : 122 BPM P-R Int : 000 ms QRS Dur : 132 ms QT Int : 334 ms P-R-T Axes : 000 261 065 degrees QTc Int : 445 ms Atrial fibrillation with frequent AV dual-paced complexes Right bundle branch block Abnormal ECG Confirmed by RADHA GOODWIN, GABRIELLA ([id number]), map editor СЕРГЕЙ VALDERRAMA ([id number]) on 07/09/2021 10:22:35 AM Referred By: DANNY Confirmed By:GABRIELLA GARCIA MD
[2021-07-04] MEDS: 0.9% Saline Lock 10 ML Syringe IV (06:52)
[2021-07-04] MEDS: 0.9% Normal Saline 1,000 ML 125 ML IV (06:53)
[2021-07-04 08:57] LABS: Absolute Lymphocyte Count 1.84 X10^3/uL (0.83-4.51); Absolute Neutrophil Count 7.6 X10^3/uL (2.0-7.7); Basophil# 0.11 X10^3/uL; Eosinophil# 0.05 X10^3/uL; Eosinophils% 0.5 % (0-5); Hematocrit 46.9 % (37-47); Hemoglobin 14.8 g/dL (12.0-15.0); Lymphocyte # 1.84 X10^3/ul (0.83-4.51); Lymphocyte % 17.1 % (19-41); Mean Corp Hgb Conc 31.6 g/dL (32-36); Mean Corpuscular Hgb 28.2 pg (27.0-32.0); Mean Corpuscular Volume 89.5 fL (81-99); Mean Platelet Vol. 11.9 fl (6.2-12.0); Monocyte# 1.14 X10^3/uL; Monocyte% 10.6 % (0-10); NRBC Flagged by Analyzer 0 % (0-5); Neutrophil # 7.59 X10^3/uL (2.7-7.7); Neutrophil % 70.2 % (47-70); POSITIVE COUNT YES; RBC Distribution Width CV 14.3 % (11.6-14.6); RBC Distribution Width SD 46.5 fl (35.1-43.9); Red Blood Count 5.24 M/mm3 (4.2-5.4); White Blood Count 10.8 K/mm3 (4.4-11.0)
[2021-07-04 09:26] LABS: Differential Indicated SCAN CRITERIA MET
[2021-07-04 09:27] LABS: Platelet Estimate ADEQUATE (ADEQ)
[2021-07-04 09:28] LABS: ALB/GLOB Ratio 0.9 RATIO (0.9-2.4); AST(SGOT) 44 U/L (15-37); Alanine Aminotransfer ALT/SGPT 30 U/L (13-56); Albumin, Serum 2.9 g/dL (3.2-5.0); Alkaline Phosphatase 58 U/L (45-117); Anion Gap 5 (5-15); BUN 22 mg/dL (7-18); BUN/Creat Ratio 22.4 RATIO (10-20); Calcium,Total 8.5 mg/dL (8.5-10.1); Chloride 113 mmol/L (98-107); Cholesterol 179 mg/dL (200); Creatinine, Serum 0.98 mg/dL (0.55-1.02); EST Glomerular Filtration Rate 62 mL/min (>60); Est Glom Filt Rate - Afr Amer 76 mL/min (>60); Estimated Creatinine Clearance 48.94 ml/min; Globulin 3.1 g/dL (2.2-4.2); Glucose 92 mg/dL (74-106); High Density Lipoprotein 63 mg/dL; Potassium 5.1 mmol/L (3.5-5.1); Sodium Level 138 mmol/L (136-145); Triglycerides 127 mg/dL; Very Low Density Lipoprotein 25 mg/dL (5-40)
--- NOTE | 2021-07-04 09:50 | CT_ITS ---
INDICATION: Dissection COMPARISON: 02 July 2021 TECHNIQUE: CT scan angiographic through the chest, abdomen, and pelvis was performed before and after the administration of intravenous contrast and with oral contrast. CT scan done according to ALARA (As Low As Reasonably Achievable). CONTRAST: mL of Omnipaque (350 mmol/mL) single-use vial was administered IV with 0 mL discarded. FINDINGS: There is extensive dissection arising from the ascending aorta, reaching the right and noncoronary sinuses of Valsalva. True lumen is to the left and is smaller than the false lumen. Brachiocephalic, left common carotid and left subclavian arteries are perfused from the true lumen. Dissection extends through the transverse and into the descending aorta and continues to the abdomen. The dissection involves the left renal artery origin partially narrowing it. Right renal artery is normal. Celiac and SMA are perfused from the true lumen without extension of dissection into them. The dissection continues to the bifurcation and extends predominantly to the left iliac. Left common iliac is severely narrow, greater than 85% stenosis, possibly due dissection related thrombus. Left external and internal iliacs further down are patent. Right common and internal and external iliac arteries are patent. There is mediastinal hematoma, new since 2 days prior. Pericardium is normal without fluid. There are surgical clips in the pelvis. There is moderate pulmonary edema and pleural effusions. There is no pneumothorax. Abdominal solid organs are normal. Kidneys contain benign central renal sinus cysts not requiring further evaluation. Bowel is normal. Bladder is decompressed with a Flores catheter. There is prior mesh repair of ventral abdominal hernia without recurrence. Skeletal structures are intact. Pacemaker is present in the left upper chest. CT/CTA Chst, Abd, Pel W and/or WO IMPRESSION: 1. 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 2. Mediastinal hematoma. 3. Great vessels and visceral arteries perfused from the true lumen. 4. Thrombus in the left common iliac with high-grade stenosis, attention to left leg perfusion is advised. 5. Moderate pulmonary edema, small effusions. N.B. : The above Results were Read Back by Pan Laurent MD to Jennifer Santiago RN, and understanding confirmed on 07/04/2021 12:19:55 (ET). Electronically Signed: Pan Laurent MD at 12:36 EST ,
--- NOTE | 2021-07-04 09:55 | CASEMGMT ---
According to the [facility] website, the following are in-network tertiary facilities: [facility], [place], [facility], [facility], and . Lino LYMAN CM
--- NOTE | 2021-07-04 10:39 | NURSING ---
Pt taken to CTA @ 1005
--- NOTE | 2021-07-04 10:39 | NURSING ---
1020- [employer] into room to speak with . 1038-Pt mouth breathing. Placed on non rebreather.
--- NOTE | 2021-07-04 10:53 | PCM.CONS.C ---
Assessment & Plan Assessment/Plan (1) Chest pain: (2) Ascending aortic dissection: (3) CLARKE (obstructive sleep apnea): (4) Former tobacco use: (5) Non-STEMI (non-ST elevated myocardial infarction): PLAN: 56-year-old patient seen and evaluated at bedside today Bedside echocardiogram showing ascending aortic flap with ascending aortic dissection extending into the descending abdominal aorta Urgent CT chest abdomen and pelvis confirmed the aortic dissection On clinical exam she had clinical evidence of aortic incompetence. Patient had a history of V. tach with ICD device in place Also had a history of for obstructive sleep apnea She had elevated troponin level Her symptoms of chest pain resolved Cardiac care plan and assessment; I discussed with the cardiothoracic surgeons at [facility] for emergency transfer of this patient accepted the patient to be transferred as emergency, to cardiothoracic ICU?[id number] To evaluate for ascending aortic dissection and to discuss surgical plan. 2. Patient has been stable clinically. 3. Other health problem include history of obstructive sleep apnea she been on CPAP. 4. History of V. tach with ICD device 5. I discussed in detail with the patient, and her mother as well as the nursing staff the emergency transfer to [facility] for type A aortic dissection surgery. HPI Consult Data Date of Consult: 07/04/21 HPI Narrative Reason for Consultation: Patient with a history of V. tach/AICD elevated troponin HPI Narrative: ANGELITO LIEV, is a 56 F who presents [facility] Medical History Anemia Arthritis COVID-19 Endometrial cancer Generalized anxiety disorder History of traumatic brain injury Hypertension ICD (implantable cardioverter-defibrillator) in place Major depressive disorder, recurrent severe without psychotic features Pneumonia due to 2019-nCoV Right inguinal hernia Seizures Stroke Urinary retention Ventricular tachycardia Home Medications loratadine 10 mg PO DAILY 04/25/20 [History Last Taken 01/31/21] losartan 100 mg PO DAILY 04/25/20 [History Last Taken 01/31/21] meloxicam 15 mg PO DAILY 04/25/20 [History Last Taken 01/31/21] potassium chloride 10 meq PO DAILY 05/26/20 [History Last Taken 01/31/21] carvedilol 12.5 mg PO BID 06/15/20 [History Last Taken 01/31/21] duloxetine 60 mg PO DAILY 06/15/20 [History Last Taken 01/31/21] magnesium oxide 400 mg PO DAILY 10/06/20 [History Last Taken 01/31/21] sotalol 120 mg PO BID 10/06/20 [History Last Taken 01/31/21] gabapentin 400 mg PO QHS 04/01/21 [History Last Taken Unknown] buspirone 30 mg PO BID 07/02/21 [History Last Taken Unknown] cephalexin 500 mg PO DAILY 07/02/21 [History Last Taken Unknown] cholecalciferol (vitamin D3) [Vitamin D3] 125 mcg PO DAILY 07/02/21 [History Last Taken Unknown] vztuczuceeqy-csjw-rdozs acid [Centrum Women] 1 tab PO DAILY 07/02/21 [History Last Taken Unknown] nortriptyline 75 mg PO DAILY #14 cap 07/02/21 [Rx Last Taken Unknown] oxycodone 5 mg PO BID PRN 3 Days #12 tab 07/02/21 [Rx Last Taken Unknown] triamcinolone acetonide [Nasacort] 2 spray INTRANASAL BID 07/02/21 [History Last Taken Unknown] Allergy/AdvReac Type Severity Reaction Status Date / Time nitrofurantoin Allergy Hives Verified 07/03/21 21:28 [From Macrobid] Penicillins [PCN] Allergy Swelling Verified 07/03/21 21:28 erythromycin base AdvReac Upset Verified 07/03/21 21:28 [Erythromycin Base] Stomach sulfamethoxazole AdvReac Upset Verified 07/03/21 21:28 [From Bactrim] Stomach trimethoprim [From Bactrim] AdvReac Upset Verified 07/03/21 21:28 Stomach Family History Mother Cancer Hx endometrial CA. Father Myocardial infarction Heart disease Surgical History H/O: hysterectomy (~2005) History of cholecystectomy s/p right inguinal hernia repair with mesh (~06/27/18) Status post club foot correction at Status post implantation of automatic cardioverter/defibrillator (AICD) Social History household members: spouse Smoking Status: Former smoker alcohol intake: current alcohol intake frequency: other substance use type: does not use Physical Exam Narrative Seen and evaluated at bedside along with the nursing staff and the medical team and mother were at bedside. Mildly confused but she denied symptoms of chest pain at this time. 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 Examination abdomen soft. Examination lower extremity palpable pedal pulses Central nervous system exam no focal neurological deficit. R Risk Stratification Risk Stratification Applicable: Yes Age >/= 65: No >/= 3 CAD Risk Factors (HTN, HLD, DM, family hx of CAD, or current smoker): No Aspirin Use in the Past 7 Days: No Severe Angina (>/= episodes in 24 hours): No EKG ST Changes >/= 0.5mm: Yes Positive Cardiac Marker: Yes ARCHIE Risk Stratification Score: 2 ARCHIE % Risk: 8% Risk Objective Data Vital Signs: Vital Signs Temp Pulse Resp BP Pulse Ox 97.5 F L 91 31 H 121/42 H 96 07/04/21 10:45 07/04/21 10:45 07/04/21 10:45 07/04/21 10:45 07/04/21 10:45 Oxygen Flow Rate (L/min) 15 Oxygen Delivery Method Non-Rebreather Weight: 187 lb 13.341 oz Body Mass Index (BMI) 35.4 Intake & Output: Intake and Output for Last 24 Hours 07/02/21 07/03/21 07/04/21 23:59 23:59 23:59 Intake Total 1500 / 1500 1083.2 / 1083.2 Output Total 0 / 0 Balance 1500 / 1500 1083.2 / 1083.2 Lab / Micro Data Result Diagrams: 07/04/21 08:26 07/04/21 08:26 Labs: Laboratory Results - last 24 hr 07/03/21 04:26: Lactic Acid Cancelled 07/03/21 15:50: WBC 10.3, RBC 5.15, Hgb 14.9, Hct 45.7, MCV 88.7, MCH 28.9, MCHC 32.6, RDW Std Deviation 45.2 H, RDW Coeff of Love 14.0, Plt Count 181, MPV 10.7, Immature Gran % (Auto) 0.600, Neut % (Auto) 70.5 H, Lymph % (Auto) 15.3 L, [place] % (Auto) 12.4 H, Eos % (Auto) 0.2, Baso % (Auto) 1.0, Absolute Neuts (auto) 7.2, Absolute Lymphs (auto) 1.57, Nucleated RBC % 0 07/03/21 15:50: Sodium 139, Potassium 4.6, Chloride 110 H, Carbon Dioxide 23.0, Anion Gap 6, BUN 25 H, Creatinine 1.40 H, Estim Creat Clear Calc 34.26, Est GFR (MDRD) Af Amer 50 L, Est GFR (MDRD) Non-Af 41 L, BUN/Creatinine Ratio 17.9, Glucose 100, Calcium 8.8, Total Bilirubin 0.50, AST 33, ALT 32, Alkaline Phosphatase 48, Troponin I High Sens 1309 H*, Total Protein 5.8 L, Albumin 3.1 L, Globulin 2.7, Albumin/Globulin Ratio 1.1 07/03/21 19:31: Urine Color Yellow, Urine Clarity Clear, Urine pH 5.0, Ur Specific [place] 1.020, Urine Protein 30 H, Urine Glucose (UA) Normal, Urine Ketones 5 H, Urine Occult Blood Negative, Urine Nitrite Negative, Urine Bilirubin 1 H, Urine Urobilinogen Normal, Ur Leukocyte Esterase 25 H, Urine RBC 0 SEEN, Urine WBC 0-5 SEEN, Ur Squamous Epith Cells 0-5 SEEN, Urine Bacteria 0 SEEN, Urine Mucus 1+ 07/03/21 19:40: Troponin I High Sens 1245 H* 07/03/21 19:40: Magnesium 2.2 07/03/21 23:45: PT 14.0, INR 1.1, APTT 31.2 07/03/21 23:45: Lactic Acid 0.8 07/03/21 23:45: Troponin I High Sens 1215 H* 07/04/21 06:50: WBC Cancelled, Corrected WBC Cancelled, RBC Cancelled, Hgb Cancelled, Hct Cancelled, MCV Cancelled, MCH Cancelled, MCHC Cancelled, RDW Std Deviation Cancelled, RDW Coeff of Love Cancelled, Plt Count Cancelled, MPV Cancelled, Immature Gran % (Auto) Cancelled, Neut % (Auto) Cancelled, Lymph % (Auto) Cancelled, [place] % (Auto) Cancelled, Eos % (Auto) Cancelled, Baso % (Auto) Cancelled, Absolute Neuts (auto) Cancelled, Absolute Lymphs (auto) Cancelled, Total Counted Cancelled, Neutrophils % (Manual) Cancelled, Band Neutrophils % Cancelled, Lymphocytes % (Manual) Cancelled, Monocytes % (Manual) Cancelled, Eosinophils % (Manual) Cancelled, Basophils % (Manual) Cancelled, Metamyelocytes % Cancelled, Myelocytes % Cancelled, Promyelocytes % Cancelled, Blast Cells % Cancelled, Plasma Cell % (Manual) Cancelled, Other Cells % Cancelled, Nucleated RBC % Cancelled, Nucleated RBCs/100 WBC Cancelled, Differential Comment Cancelled, Diff Path Review Cancelled, Hypersegmented Neuts Cancelled, Atypical Lymphocytes Cancelled, Reactive Lymphocytes Cancelled, Smudge Cells Cancelled, Toxic Granulation Cancelled, Toxic Vacuolation Cancelled, Dohle Bodies Cancelled, Joce Rods Cancelled, Platelet Estimate Cancelled, Plt Morphology Comment Cancelled, RBC Morphology Cancelled, Polychromasia Cancelled, Hypochromasia Cancelled, Poikilocytosis Cancelled, Basophilic Stippling Cancelled, Anisocytosis Cancelled, Microcytosis Cancelled, Macrocytosis Cancelled, Spherocytes Cancelled, Sickle Cells Cancelled, Target Cells Cancelled, Tear Drop Cells Cancelled, Ovalocytes Cancelled, Stomatocytes Cancelled, [place] Bodies Cancelled, Willie Cells Cancelled, Bite Cells Cancelled, Crenated Cell Cancelled, Acanthocytes (Spur) Cancelled, Rouleaux Cancelled, Schistocytes Cancelled 07/04/21 06:50: Sodium Cancelled, Potassium Cancelled, Chloride Cancelled, Carbon Dioxide Cancelled, Anion Gap Cancelled, BUN Cancelled, Creatinine Cancelled, Estim Creat Clear Calc Cancelled, Est GFR (MDRD) Af Amer Cancelled, Est GFR (MDRD) Non-Af Cancelled, BUN/Creatinine Ratio Cancelled, Glucose Cancelled, Calcium Cancelled, Total Bilirubin Cancelled, AST Cancelled, ALT Cancelled, Alkaline Phosphatase Cancelled, Total Protein Cancelled, Albumin Cancelled, Globulin Cancelled, Albumin/Globulin Ratio Cancelled, Triglycerides Cancelled, Cholesterol Cancelled, LDL Cholesterol Cancelled, VLDL Cholesterol Cancelled, HDL Cholesterol Cancelled 07/04/21 06:50: APTT Cancelled 07/04/21 08:26: WBC 10.8, RBC 5.24, Hgb 14.8, Hct 46.9, MCV 89.5, MCH 28.2, MCHC 31.6 L, RDW Std Deviation 46.5 H, RDW Coeff of Love 14.3, Plt Count , MPV 11.9, Immature Gran % (Auto) 0.600, Neut % (Auto) 70.2 H, Lymph % (Auto) 17.1 L, [place] % (Auto) 10.6 H, Eos % (Auto) 0.5, Baso % (Auto) 1.0, Absolute Neuts (auto) 7.6, Absolute Lymphs (auto) 1.84, Nucleated RBC % 0, Platelet Estimate ADEQUATE 07/04/21 08:26: Sodium 138, Potassium 5.1, Chloride 113 H, Carbon Dioxide 20.0 L, Anion Gap 5, BUN 22 H, Creatinine 0.98, Estim Creat Clear Calc 48.94, Est GFR (MDRD) Af Amer 76, Est GFR (MDRD) Non-Af 62, BUN/Creatinine Ratio 22.4 H, Glucose 92, Calcium 8.5, Total Bilirubin 0.80, AST 44 H, ALT 30, Alkaline Phosphatase 58, Total Protein 6.0 L, Albumin 2.9 L, Globulin 3.1, Albumin/Globulin Ratio 0.9, Triglycerides 127, Cholesterol 179, LDL Cholesterol 91, VLDL Cholesterol 25, HDL Cholesterol 63 07/04/21 08:26: APTT Cancelled Cardiology Labs/Tests 07/03/21 04:26: Lactic Acid Cancelled 07/03/21 15:50: WBC 10.3, RBC 5.15, Hgb 14.9, Hct 45.7, MCV 88.7, MCH 28.9, MCHC 32.6, Plt Count 181, MPV 10.7, Immature Gran % (Auto) 0.600, Neut % (Auto) 70.5 H, Lymph % (Auto) 15.3 L, [place] % (Auto) 12.4 H, Eos % (Auto) 0.2, Baso % (Auto) 1.0, Absolute Neuts (auto) 7.2, Nucleated RBC % 0 07/03/21 15:50: Sodium 139, Potassium 4.6, Chloride 110 H, Carbon Dioxide 23.0, Anion Gap 6, BUN 25 H, Creatinine 1.40 H, Est GFR (MDRD) Af Amer 50 L, Est GFR (MDRD) Non-Af 41 L, BUN/Creatinine Ratio 17.9, Glucose 100, Calcium 8.8, Total Bilirubin 0.50 07/03/21 19:31: Urine Color Yellow, Urine Clarity Clear, Urine pH 5.0, Ur Specific [place] 1.020, Urine Protein 30 H, Urine Glucose (UA) Normal, Urine Ketones 5 H, Urine Occult Blood Negative, Urine Nitrite Negative, Urine Bilirubin 1 H, Urine Urobilinogen Normal, Ur Leukocyte Esterase 25 H, Urine RBC 0 SEEN, Urine WBC 0-5 SEEN 07/03/21 19:40: Magnesium 2.2 07/03/21 23:45: PT 14.0, INR 1.1, APTT 31.2 07/03/21 23:45: Lactic Acid 0.8 07/04/21 06:50: WBC Cancelled, Corrected WBC Cancelled, RBC Cancelled, Hgb Cancelled, Hct Cancelled, MCV Cancelled, MCH Cancelled, MCHC Cancelled, Plt Count Cancelled, MPV Cancelled, Immature Gran % (Auto) Cancelled, Neut % (Auto) Cancelled, Lymph % (Auto) Cancelled, [place] % (Auto) Cancelled, Eos % (Auto) Cancelled, Baso % (Auto) Cancelled, Absolute Neuts (auto) Cancelled, Total Counted Cancelled, Neutrophils % (Manual) Cancelled, Band Neutrophils % Cancelled, Lymphocytes % (Manual) Cancelled, Monocytes % (Manual) Cancelled, Eosinophils % (Manual) Cancelled, Basophils % (Manual) Cancelled, Metamyelocytes % Cancelled, Myelocytes % Cancelled, Promyelocytes % Cancelled, Blast Cells % Cancelled, Plasma Cell % (Manual) Cancelled, Other Cells % Cancelled, Nucleated RBC % Cancelled 07/04/21 06:50: Sodium Cancelled, Potassium Cancelled, Chloride Cancelled, Carbon Dioxide Cancelled, Anion Gap Cancelled, BUN Cancelled, Creatinine Cancelled, Est GFR (MDRD) Af Amer Cancelled, Est GFR (MDRD) Non-Af Cancelled, BUN/Creatinine Ratio Cancelled, Glucose Cancelled, Calcium Cancelled, Total Bilirubin Cancelled, Triglycerides Cancelled, Cholesterol Cancelled, LDL Cholesterol Cancelled, VLDL Cholesterol Cancelled, HDL Cholesterol Cancelled 07/04/21 06:50: APTT Cancelled 07/04/21 08:26: WBC 10.8, RBC 5.24, Hgb 14.8, Hct 46.9, MCV 89.5, MCH 28.2, MCHC 31.6 L, Plt Count , MPV 11.9, Immature Gran % (Auto) 0.600, Neut % (Auto) 70.2 H, Lymph % (Auto) 17.1 L, [place] % (Auto) 10.6 H, Eos % (Auto) 0.5, Baso % (Auto) 1.0, Absolute Neuts (auto) 7.6, Nucleated RBC % 0 07/04/21 08:26: Sodium 138, Potassium 5.1, Chloride 113 H, Carbon Dioxide 20.0 L, Anion Gap 5, BUN 22 H, Creatinine 0.98, Est GFR (MDRD) Af Amer 76, Est GFR (MDRD) Non-Af 62, BUN/Creatinine Ratio 22.4 H, Glucose 92, Calcium 8.5, Total Bilirubin 0.80, Triglycerides 127, Cholesterol 179, LDL Cholesterol 91, VLDL Cholesterol 25, HDL Cholesterol 63 07/04/21 08:26: APTT Cancelled Rhythm: Normal sinus with frequent PVCs EKG: Normal sinus with ventricular bigeminy. ECHO: Abnormal at bedside echocardiogram with evidence of a dissection flap noted in the ascending aorta as well as the descending aorta And evidence of aortic incompetence LV function is preserved Chest CT Scan: Radiography Diagnostic Testing: Radiology Impression Chest X-Ray 07/03/21 17:00 IMPRESSION: Poor inspiration with some bibasilar atelectasis. Electronically Signed: Charlie Alejandro MD at 17:19 EST ,
--- NOTE | 2021-07-04 12:17 | DS.PCM_ITS ---
Documented by User: Dora Hitchcock NP, MACHINE SHOP SPECIALIST-C 07/04/21 12:43 Providers Date of Admission: 07/03/21 Date of Discharge: 07/04/21 Primary Care Physician: Dr. Slim Dneson, Consultations 07/03/21 21:02 Consult: Cardiology Routine Consulting Provider: Martha Vega Reason for Consult: NSTEMI, suspect demand w/ hypoxia 2/2 accidental overdose EMERGENT Consult: No MD Notified: Yes Date Notified: 07/03/21 Time Notified: 19:58 Method of Notification: Page Reason For Visit: NSTEMI, ACCIDENTAL OD, RESP FAILURE Diagnosis Discharge Diagnosis (1) Chest pain: Status: Acute Code(s): R07.9 - Chest pain, unspecified (2) Ascending aortic dissection: Status: Acute Code(s): I71.01 - Dissection of thoracic aorta (3) CLARKE (obstructive sleep apnea): Status: Chronic Code(s): G47.33 - Obstructive sleep apnea (adult) (pediatric) (4) Former tobacco use: Status: Chronic Code(s): Z87.891 - Personal history of nicotine dependence (5) Non-STEMI (non-ST elevated myocardial infarction): Status: Acute Code(s): I21.4 - Non-ST elevation (NSTEMI) myocardial infarction Medications at Discharge Home Medications loratadine 10 mg PO DAILY 04/25/20 losartan 100 mg PO DAILY 04/25/20 meloxicam 15 mg PO DAILY 04/25/20 potassium chloride 10 meq PO DAILY 05/26/20 carvedilol 12.5 mg PO BID 06/15/20 duloxetine 60 mg PO DAILY 06/15/20 magnesium oxide 400 mg PO DAILY 10/06/20 sotalol 120 mg PO BID 10/06/20 gabapentin 400 mg PO QHS 04/01/21 buspirone 30 mg PO BID 07/02/21 cephalexin 500 mg PO DAILY 07/02/21 cholecalciferol (vitamin D3) [Vitamin D3] 125 mcg PO DAILY 07/02/21 [id number]-vhya-qguex acid [Centrum Women] 1 tab PO DAILY 07/02/21 nortriptyline 75 mg PO DAILY #14 cap 07/02/21 oxycodone 5 mg PO BID PRN 3 Days #12 tab 07/02/21 triamcinolone acetonide [Nasacort] 2 spray INTRANASAL BID 07/02/21 Hospital Course Operations None Procedures None Summary of Care Provided Hospital Course: Patient is a normal admitted 07/03/2021 due to lethargy. Patient was seen in the emergency room 07/02/2021 due to chest pain and headache. CT of chest and CTA of head and neck at that time unremarkable. 1. Type A ascending aortic dissection-echocardiogram with EF 55 to 60%, dissection flap/a sending aortic dissection extending into the abdominal aorta. CTA of chest/abdomen/pelvis read pending however consistent with dissection. Patient emergently transferred to [facility], accepted by cardiothoracic surgery. 2. NSTEMI- secondary to #1. Echo per above. 3. Acute hypoxic respiratory failure- secondary to above. On 15 L nonreb reather. May require intubation prior to transfer. 4. History of CVA/TBI with seizure disorder-not on antiepileptic drugs. Continue aspirin, statin. 5. History of VT-status post AICD. On sotalol. 6. Hypertension-on carvedilol, losartan. 7. CLARKE-on CPAP. 8. Depression/anxiety-oral regimen on hold due to lethargy. Patient seen and examined prior to discharge. Physical assessment as noted above. Attempted med flight however canceled due to weather. Ground transfer emergently to [facility]. This patient was seen by IRENA Ugalde under the supervision of Dr. Calzada. Time spent examining patient, reviewing data and subsequent management of care: 35 Minutes Physical Exam Const Constitutional Narrative: Lethargic, confused HEENT Mouth: dry mucous membranes Eyes PERRL, EOMs intact bilaterally and conjunctivae normal Neck no lymphadenopathy Resp clear to auscultation bilaterally Auscultation: diminished lung sounds Cardio regular rate, regular rhythm and no murmurs Peripheral Pulses: pulses 2+ throughout GI normal to inspection, nondistended, normoactive bowel sounds, non-tender and non-distended Extremity normal to inspection Skin no rashes or lesions noted Lesions: no lesions Rashes: no rashes Trauma: no lacerations or abrasions Neuro CN's II-XII intact bilaterally, no focal motor deficits, no sensory deficits noted and deep tendon reflexes 2+ bilaterally Psych mental status grossly normal and affect normal Weight / BMI Weight Weight: 187 lb 13.341 oz Body Mass Index (BMI) 35.4 ABG / Lab / Microbiology Data Result Diagrams: 07/04/21 08:26 07/04/21 08:26 Laboratory: Laboratory Results - last 24 hr 07/03/21 04:26: Lactic Acid Cancelled 07/03/21 15:50: WBC 10.3, RBC 5.15, Hgb 14.9, Hct 45.7, MCV 88.7, MCH 28.9, MCHC 32.6, RDW Std Deviation 45.2 H, RDW Coeff of Love 14.0, Plt Count 181, MPV 10.7, Immature Gran % (Auto) 0.600, Neut % (Auto) 70.5 H, Lymph % (Auto) 15.3 L, [place] % (Auto) 12.4 H, Eos % (Auto) 0.2, Baso % (Auto) 1.0, Absolute Neuts (auto) 7.2, Absolute Lymphs (auto) 1.57, Nucleated RBC % 0 07/03/21 15:50: Sodium 139, Potassium 4.6, Chloride 110 H, Carbon Dioxide 23.0, Anion Gap 6, BUN 25 H, Creatinine 1.40 H, Estim Creat Clear Calc 34.26, Est GFR (MDRD) Af Amer 50 L, Est GFR (MDRD) Non-Af 41 L, BUN/Creatinine Ratio 17.9, Glucose 100, Calcium 8.8, Total Bilirubin 0.50, AST 33, ALT 32, Alkaline Phosphatase 48, Troponin I High Sens 1309 H*, Total Protein 5.8 L, Albumin 3.1 L , Globulin 2.7, Albumin/Globulin Ratio 1.1 07/03/21 19:31: Urine Color Yellow, Urine Clarity Clear, Urine pH 5.0, Ur Specific Outlook 1.020, Urine Protein 30 H, Urine Glucose (UA) Normal, Urine Ketones 5 H, Urine Occult Blood Negative, Urine Nitrite Negative, Urine Bilirubin 1 H, Urine Urobilinogen Normal, Ur Leukocyte Esterase 25 H, Urine RBC 0 SEEN, Urine WBC 0-5 SEEN, Ur Squamous Epith Cells 0-5 SEEN, Urine Bacteria 0 SEEN, Urine Mucus 1+ 07/03/21 19:40: Troponin I High Sens 1245 H* 07/03/21 19:40: Magnesium 2.2 07/03/21 23:45: PT 14.0, INR 1.1, APTT 31.2 07/03/21 23:45: Lactic Acid 0.8 07/03/21 23:45: Troponin I High Sens 1215 H* 07/04/21 06:50: WBC Cancelled, Corrected WBC Cancelled, RBC Cancelled, Hgb Cancelled, Hct Cancelled, MCV Cancelled, MCH Cancelled, MCHC Cancelled, RDW Std Deviation Cancelled, RDW Coeff of Love Cancelled, Plt Count Cancelled, MPV Cancelled, Immature Gran % (Auto) Cancelled, Neut % (Auto) Cancelled, Lymph % (Auto) Cancelled, [place] % (Auto) Cancelled, Eos % (Auto) Cancelled, Baso % (Auto) Cancelled, Absolute Neuts (auto) Cancelled, Absolute Lymphs (auto) Cancelled, Total Counted Cancelled, Neutrophils % (Manual) Cancelled, Band Neutrophils % Cancelled, Lymphocytes % (Manual) Cancelled, Monocytes % (Manual) Cancelled, Eosinophils % (Manual) Cancelled, Basophils % (Manual) Cancelled, Metamyelocytes % Cancelled, Myelocytes % Cancelled, Promyelocytes % Cancelled, Blast Cells % Cancelled, Plasma Cell % (Manual) Cancelled, Other Cells % Cancelled, Nucleated RBC % Cancelled, Nucleated RBCs/100 WBC Cancelled, Differential Comment Cancelled, Diff Path Review Cancelled, Hypersegmented Neuts Cancelled, Atypical Lymphocytes Cancelled, Reactive Lymphocytes Cancelled, Smudge Cells Cancelled, Toxic Granulation Cancelled, Toxic Vacuolation Cancelled, Dohle Bodies Cancelled, Joce Rods Cancelled, Platelet Estimate Cancelled, Plt Morphology Comment Cancelled, RBC Morphology Cancelled, Polychromasia Cancelled, Hypochromasia Cancelled, Poikilocytosis Cancelled, Basophilic Stippling Cancelled, Anisocytosis Cancelled, Microcytosis Cancelled, Macrocytosis Cancelled, Spherocytes Cancelled, Sickle Cells Cancelled, Target Cells Cancelled, Tear Drop Cells Cancelled, Ovalocytes Cancelled, Stomatocytes Cancelled, [place] Bodies Cancelled, Willie Cells Cancelled, Bite Cells Cancelled, Crenated Cell Cancelled, Acanthocytes (Spur) Cancelled, Rouleaux Cancelled, Schistocytes Cancelled 07/04/21 06:50: Sodium Cancelled, Potassium Cancelled, Chloride Cancelled, Carbon Dioxide Cancelled, Anion Gap Cancelled, BUN Cancelled, Creatinine Cancelled, Estim Creat Clear Calc Cancelled, Est GFR (MDRD) Af Amer Cancelled, Est GFR (MDRD) Non-Af Cancelled, BUN/Creatinine Ratio Cancelled, Glucose Cancelled, Calcium Cancelled, Total Bilirubin Cancelled, AST Cancelled, ALT Cancelled, Alkaline Phosphatase Cancelled, Total Protein Cancelled, Albumin Cancelled, Globulin Cancelled, Albumin/Globulin Ratio Cancelled, Triglycerides Cancelled, Cholesterol Cancelled, LDL Cholesterol Cancelled, VLDL Cholesterol Cancelled, HDL Cholesterol Cancelled 07/04/21 06:50: APTT Cancelled 07/04/21 08:26: WBC 10.8, RBC 5.24, Hgb 14.8, Hct 46.9, MCV 89.5, MCH 28.2, MCHC 31.6 L, RDW Std Deviation 46.5 H, RDW Coeff of Love 14.3, Plt Count , MPV 11.9, Immature Gran % (Auto) 0.600, Neut % (Auto) 70.2 H, Lymph % (Auto) 17.1 L, [place] % (Auto) 10.6 H, Eos % (Auto) 0.5, Baso % (Auto) 1.0, Absolute Neuts (auto) 7.6, Absolute Lymphs (auto) 1.84, Nucleated RBC % 0, Platelet Estimate ADEQUATE 07/04/21 08:26: Sodium 138, Potassium 5.1, Chloride 113 H, Carbon Dioxide 20.0 L , Anion Gap 5, BUN 22 H, Creatinine 0.98, Estim Creat Clear Calc 48.94, Est GFR (MDRD) Af Amer 76, Est GFR (MDRD) Non-Af 62, BUN/Creatinine Ratio 22.4 H, Glucose 92, Calcium 8.5, Total Bilirubin 0.80, AST 44 H, ALT 30, Alkaline Phosphatase 58, Total Protein 6.0 L, Albumin 2.9 L, Globulin 3.1, Albumin/Globulin Ratio 0.9, Triglycerides 127, Cholesterol 179, LDL Cholesterol 91, VLDL Cholesterol 25, HDL Cholesterol 63 07/04/21 08:26: APTT Cancelled Microbiology: Microbiology 07/04/21 Unknown Nasal Secretion SARS-CoV-2 Antigen (Rapid) - Final Radiography Diagnostic Testing: Radiology Impression Chest X-Ray 07/03/21 17:00 IMPRESSION: Poor inspiration with some bibasilar atelectasis. Electronically Signed: Charlie Alejandro MD at 17:19 EST , Meaningful Use Info Meaningful Use Diagnoses (Choose all that apply): AMI AMI/Post PCI/Angioplasty Aspirin given w/in 24hrs of arrival?: Yes ASA at discharge?: Yes Statins at discharge?: Yes Colin/ARB at discharge?: Yes Beta Yenni at discharge?: Yes Done w/ Acute TX measure.: Yes Discharge Plan Admission Admit Date/Time: 07/03/21 19:54 Primary Reason for Your Visit: Aortic dissection Attending Provider: Fabian Calzada Primary Care Provider: Slim Denson Consulting Providers: Martha Vega ; Chance Duarte ; Ryan Selby ; Reyes House MACHINE SHOP SPECIALIST Discharge Orders/Prescriptions Prescriptions: No Action losartan 50 MG tablet 100 mg PO DAILY RF: 0 loratadine 10 MG tablet 10 mg PO DAILY RF: 0 meloxicam 7.5 MG tablet 15 mg PO DAILY RF: 0 potassium chloride 10 MEQ tablet,ER particles/crystals 10 meq PO DAILY RF: 0 carvedilol 6.25 MG tablet 12.5 mg PO BID RF: 0 duloxetine 60 MG capsule,delayed release(DR/EC) 60 mg PO DAILY RF: 0 sotalol 120 mg Tablet 120 mg PO BID RF: 0 magnesium oxide 400 mg magnesium Tablet 400 mg PO DAILY RF: 0 gabapentin 300 mg Capsule 400 mg PO QHS RF: 0 triamcinolone acetonide [Nasacort] 55 mcg Aerosol,Ida 2 spray INTRANASAL BID RF: 0 cephalexin 500 mg Tablet 500 mg PO DAILY RF: 0 Centrum Women 18-400 mg-mcg Tablet 1 tab PO DAILY RF: 0 cholecalciferol (vitamin D3) [Vitamin D3] 125 mcg (5,000 unit) Tablet 125 mcg PO DAILY RF: 0 buspirone 5 mg tablet 30 mg PO BID RF: 0 nortriptyline 75 mg capsule 75 mg PO DAILY Qty: 14 RF: 0 oxycodone 5 mg tablet 5 mg PO BID PRN (Reason: pain) 3 Days Qty: 12 RF: 0 Referrals / Follow Up: Slim Denson DO [Primary Care Provider] - Disposition Disposition (needs filled in before D/C Order can be placed): [facility] Documented by User: Dr. Fabian Calzada MD 07/04/21 14:22 Providers Date of Admission: 07/03/21 Reason For Visit: NSTEMI, ACCIDENTAL OD, RESP FAILURE Medications at Discharge Home Medications loratadine 10 mg PO DAILY 04/25/20 losartan 100 mg PO DAILY 04/25/20 meloxicam 15 mg PO DAILY 04/25/20 potassium chloride 10 meq PO DAILY 05/26/20 carvedilol 12.5 mg PO BID 06/15/20 duloxetine 60 mg PO DAILY 06/15/20 magnesium oxide 400 mg PO DAILY 10/06/20 sotalol 120 mg PO BID 10/06/20 gabapentin 400 mg PO QHS 04/01/21 buspirone 30 mg PO BID 07/02/21 cephalexin 500 mg PO DAILY 07/02/21 cholecalciferol (vitamin D3) [Vitamin D3] 125 mcg PO DAILY 07/02/21 [id number]-ovdh-acnma acid [Centrum Women] 1 tab PO DAILY 07/02/21 nortriptyline 75 mg PO DAILY #14 cap 07/02/21 oxycodone 5 mg PO BID PRN 3 Days #12 tab 07/02/21 triamcinolone acetonide [Nasacort] 2 spray INTRANASAL BID 07/02/21 Hospital Course Summary of Care Provided Hospital Course: Seen and examined in the morning this patient was seen in conjunction with MACHINE SHOP SPECIALIST, Dora. I have independently interviewed and examined the patient and reviewed pertinent history, examination findings, laboratory and plan of management. I have reviewed the note and agree with the documented findings with the few additional points. In brief, patient is a 36-year-old female admitted in PCU with headache, nausea and emesis and then shortness of breath. Her troponins are high, 1309, 1245 and 1215. Glass Toughening Operator was consulted. 2D echo done shows dissection flap ascending aortic dissection extending to the abdominal aorta. Moderate AI. I suggest patient did on the right side. Subsequently, CTA chest abdomen and was done CTA shows extensive dissection arising from ascending aorta reaching right and the noncoronary sinuses of Valsalva. 2 luminous to the left and smaller than false lumen. Brachiocephalic, left CCA and left subclavian artery are perfused through true lumen. Dissection continues to abdominal aorta and involves the left renal artery origin. Right renal artery normal. Mediastinal hematoma new since 2 days prior. Pericardium normal without fluid. Patient blood pressure was low yesterday afternoon in ED, systolic 60 and she was restarted. Her blood pressure responded good and by the morning it was 123/50. Patient has high pulse pressure. Heart rate diminished in low 90s. Patient tachypneic res piratory rate 30 to 34/min. Patient initially on 4 to 5 L of oxygen. After that it was increased to 15 L/min nonrebreather still she was short of breath and stated she is difficult to breathe. Thereafter she was transferred to ICU. She has history of sleep apnea on CPAP at home. In the ICU, patient underwent rapid sequence intubation. Discussed with the instructional resource teacher. ET tube patient confirmed with the chest x-ray. Please see the procedure note Her diagnoses as mentioned below along with assessment and plan Type A ascending aortic dissection flap extending up to the abdominal aorta with moderate aortic regurgitation. Echo EF 55 to 30%. Moderate aortic stenosis. Glass Toughening Operator immediately talk to cardiothoracic surgeon and just admit her to instructional resource teacher and patient accepted in [facility] patient AND transferred to [facility] by ICU embolus ruled as weather was bad for helicopter. Non-STEMI due to type A aortic dissection Acute hypoxic respiratory failure secondary to type a aortic dissection. Patient intubated on AC mode of ventilator and transferred to [facility] History of CVA/TBI with seizure disorder. Not on elliptic medication History of V. tach status post AICD Other comorbidities include hypertension, central sleep apnea anxiety depression on CPAP Total time spent more than 60 minutes in overall care regarding type A aortic dissection, moderate AR, non-STEMI, discussion with the statuary painter patient's mother, [facility] instructional resource teacher and overall transfer of the care. I have discussed my assessment with MACHINE SHOP SPECIALISTDora and orders have been reviewed. Physical Exam Narrative Seen and examined in the morning, noontime and then intubated the patient in ICU. I also talked to the patient's mother near the bedside Patient came to the ER on past mainly for headache for 1 day. She had a CTA head and neck and chest done which was negative. Her symptoms improved thereafter she was sent on oxycodone and nortriptyline. She came back to ER on 07/03 with headache associated with nausea and vomiting after taking oxycodone 3 doses. She was very groggy and EMS even given a dose of Narcan. She denies chest discomfort tightness or chest pain. Patient had shortness of breath since early years teacher. After that she had an echo. Echo showed aortic dissection type I. This was confirmed by CT angiogram chest abdomen pelvis. This is measuring during course of hospitalization. Patient got more progressively short of breath short of breath during afternoon therefore intubated Physical exam General: Alert, Oriented x3, Cooperative HEENT: Atraumatic, PERRLA, EOMI, Normocephalic Oral: No Gingival or Mucosal Lesions/ Ulcerations Neck: Supple, No JVD, Negative Carotid Bruits Lungs: Air entry diminished in bilateral lung bases. No crepitation/rhonchi. Severe hypoxia. Tachypnea Cardiovascular: Sinus rhythm. Status post AICD. Diastolic murmur over the rig ht second ICS, AI Abdomen: Bowel Sounds Present, Soft, Non Tender, Non-Distended : No renal angle tenderness. No suprapubic tenderness. Extremities: Mild bilateral ankle pitting edema, Capillary Refill Less than 3 Seconds Skin: No rashes, No breakdown Musculoskeletal: No Tenderness to Palpation of Joints or Extremities Neurological: Cranial nerves II-XII grossly intact, DTR 2+/4 and Symmetrical, Neuro grossly intact Psych/Mental Status: Anxiety ABG / Lab / Microbiology Data Result Diagrams: 07/04/21 08:26 07/04/21 08:26 Discharge Plan Admission Admit Date/Time: 07/03/21 19:54 Primary Reason for Your Visit: Aortic dissection Attending Provider: Fabian Calzada Primary Care Provider: Slim Denson Consulting Providers: Martha Vega ; Chance Duarte ; Ryan Selby ; Marjan House MACHINE SHOP SPECIALIST Discharge Orders/Prescriptions Prescriptions: No Action losartan 50 MG tablet 100 mg PO DAILY RF: 0 loratadine 10 MG tablet 10 mg PO DAILY RF: 0 meloxicam 7.5 MG tablet 15 mg PO DAILY RF: 0 potassium chloride 10 MEQ tablet,ER particles/crystals 10 meq PO DAILY RF: 0 carvedilol 6.25 MG tablet 12.5 mg PO BID RF: 0 duloxetine 60 MG capsule,delayed release(DR/EC) 60 mg PO DAILY RF: 0 sotalol 120 mg Tablet 120 mg PO BID RF: 0 magnesium oxide 400 mg magnesium Tablet 400 mg PO DAILY RF: 0 gabapentin 300 mg Capsule 400 mg PO QHS RF: 0 triamcinolone acetonide [Nasacort] 55 mcg Aerosol,Ida 2 spray INTRANASAL BID RF: 0 cephalexin 500 mg Tablet 500 mg PO DAILY RF: 0 Centrum Women 18-400 mg-mcg Tablet 1 tab PO DAILY RF: 0 cholecalciferol (vitamin D3) [Vitamin D3] 125 mcg (5,000 unit) Tablet 125 mcg PO DAILY RF: 0 buspirone 5 mg tablet 30 mg PO BID RF: 0 nortriptyline 75 mg capsule 75 mg PO DAILY Qty: 14 RF: 0 oxycodone 5 mg tablet 5 mg PO BID PRN (Reason: pain) 3 Days Qty: 12 RF: 0 Referrals / Follow Up: Slim Denson DO [Primary Care Provider] - Disposition Disposition (needs filled in before D/C Order can be placed): Acute Care Hospital Charges/Coding Visit Charges Inpatient E&M: 27397 Disch Hosp
--- NOTE | 2021-07-04 12:22 | NURSING ---
Addendum entered by Dora See 07/04/21 13:06: Call placed to [address] to Kyung LYMAN, updated on changes in transport. Original Note: Updated Carlos Hitchcock [employer] on pt oxygenation. pt satting 86% on non rebreather. While speaking with Carlos Hitchcock, charge out clerk received CT results. Results shared with [employer]. [id number] secretary to the vice president received call from [facility] that air transport was cancelled and they are sending ground transport which will not be here for roughly 55 mins. Decision was made to transfer pt to ICU. Report called to Caio LYMAN @ [phone]
[2021-07-04] MEDS: Propofol 10MG/Ml 1,000 MG/100 ML Bottle 5.1 MG CONT INF (12:30)
--- NOTE | 2021-07-04 13:00 | NURSING ---
pt intubated per Dr Calzada started on fentanyl & propofol gtt as per order, transferred per [facility] ground crew with Fentanyl & propofol
[2021-07-04] MEDS: Midazolam 2 MG/2 ML Syringe IV (13:12)
[2021-07-04] MEDS: Etomidate 20 MG/10 ML Vial IV (13:15)
--- NOTE | 2021-07-04 13:20 | RAD_ITS ---
STUDY: X-RAY CHEST REASON FOR EXAM: Female, 56 years old. et tube placement OG NG tube placement TECHNIQUE: Frontal portable view of the chest COMPARISON: Same day CT chest, 03 July 2021 chest x-ray FINDINGS: Endotracheal tube terminates with its tip 3.5 cm from the maia. Gastric tube terminates in the distal esophagus with side-port in the mid esophagus. Pacemaker is in the left upper chest. There are extensive heterogeneous bilateral pulmonary opacities, new since 24 hours prior, likely pulmonary edema and possibly superimposed lung disease such as pneumonia. The heart is mildly enlarged. Superior mediastinum is widened due to known mediastinal hematoma of dissection. There is no pneumothorax on this supine portable view. There no pleural effusions. RAD/Chest 1 View (Portable) IMPRESSION: 1. Endotracheal tube 3.5 center meters from the maia. 2. Gastric drainage tube with tip in the distal esophagus, recommend advancement. 3. Extensive bilateral lung disease, most probably pulmonary edema given the rapidity of development since 24 hours prior. 4. Known mediastinal hematoma and aortic dissection. Electronically Signed: Pan Laurent MD at 15:34 EST ,
--- NOTE | 2021-07-04 13:40 | PCM.OP.PRO ---
Assessment & Plan Assessment/Plan (1) Acute respiratory failure with hypoxia: Procedure Report Date of Procedure: 07/04/21 Rapid sequence intubation under Gleidoscope Earlier, patient was moved to ICU because of shortness of breath and hypoxia even 100% nonrebreather. Urine retention. Patient was desaturating 88% to 91% intermittently. Discussed with the account processor we are all agree for intubation. Verbal consult taken from patient's mother near the bedside and patient herself. Patient received 2 mg IV Versed and 20 mg of etomidate for sedation but still her jaw muscle was tight therefore 100 mg IV succinylcholine given as muscle relaxant. With glideoscope, she conciliation base of tongue, vallecula and aryepiglottic folds and epiglottis and vocal cords visualized. Under vision, 7.5 mm endotracheal tube passed. Colorimeter showed the change of color. Air entry equal on both lungs. ET tube was secured at 23 cm from incisor teeth level. Chest x-ray was done and tip of ET tube about 2 cm above maia. Tip of OG tube at gastric fundus level. Advised to possible G-tube 5 cm more. EMS at the bedside and patient is transferred. Vent setting 100% FiO2, 450 mL/12/5. Advised ABG after 1 hour to titrate the vent setting. Procedures Hospitalists Procedures: 90365 Insert Emergency Airway
--- NOTE | 2021-07-04 14:02 | NURSING ---
Patient received to ICU4 from PCU while waiting for transport to [facility] for Aortic Dissection. On arrival, patient was alert and oriented, conversing with staff on 100% Non-rebreather. Pulse Ox would not increase above 87% once transferred into new bed and placed on monitor. Dr Calzada notified and he came to the bedside. Decision made to intubate patient, Dr Calzada discussed intubation with the patient and her family at the bedside. [facility] team arrived as preperations for intubation were completed. Patient was intubated by Dr Calzada at 1340, #7.5 ETT, 23 CM at lip. Patient tolerated without complications. After intubation, Fentanyl and propofol gtts were started by the transport team and patient was transferred to EMS stretcher. Family came back into room to briefly before transport team took her out to ambulance.
== END 2021-07-04 13:40 | disposition short-term general hospital (02) | DRG 280 ==
LOC: ED 19:59 → PCU 20:06 → ICU 07-04 12:50
PROVIDERS: Admitting Provider Family Medicine; Emergency Provider Emergency Medicine; PCP Student in an Organized Health Care Education/Training Program; Visit Provider Internal Medicine
DX: I71.01 Dissection of thoracic aorta (principal); I21.4 Non-ST elevation (NSTEMI) myocardial infarction; J96.01 Acute respiratory failure with hypoxia; G40.909 Epilepsy, unspecified, not intractable, without status epilepticus; I48.91 Unspecified atrial fibrillation; E78.5 Hyperlipidemia, unspecified; F32.A Depression, unspecified; I10 Essential (primary) hypertension; G62.9 Polyneuropathy, unspecified; G47.31 Primary central sleep apnea; I35.2 Nonrheumatic aortic (valve) stenosis with insufficiency; I45.10 Unspecified right bundle-branch block; G47.33 Obstructive sleep apnea (adult) (pediatric); F41.1 Generalized anxiety disorder; Z87.891 Personal history of nicotine dependence; Z95.810 Presence of automatic (implantable) cardiac defibrillator; Z79.82 Long term (current) use of aspirin; Z86.16 Personal history of COVID-19; Z87.820 Personal history of traumatic brain injury
CPT/HCPCS: 31500; 71045; 71275; 74174; 80053; 80061; 81001; 83605; 83735; 84484; 85025; 85610; 85730; 87426; 93005; 93306; 99251; 99285; J7030; J7040; P9612; Q9967; A4216; C1751; G0463; J3010

== ENCOUNTER 2021-07-18 17:35 | Inpatient (IN) | payer OTHER, SELFPAY ==
[2021-07-18 17:49] VITALS: BP 173/90; PULSE 89; RESP 18; TEMP 36.6; O2SAT 99; BMI 36.6
--- NOTE | 2021-07-18 18:01 | NURSING ---
Patient just admitted, alert but delayed with thought processes. BS check 31, lab called for back up. Able to swallow and orange juice given at this time.
[2021-07-18 18:05] LABS: Bedside Glucose 31 mg/dL (74-106)
--- NOTE | 2021-07-18 18:08 | NURSING ---
Patient drank 8 ounces orange juice, lab back up here, patient currently eating sandwich.
--- NOTE | 2021-07-18 18:15 | NURSING ---
BS WNL at this time, Dr. Robertson aware of hypoglycemia. Family made aware. Will continue to monitor.
[2021-07-18 18:21] LABS: Bedside Glucose 82 mg/dL (74-106)
[2021-07-18 20:41] LABS: Bedside Glucose 95 mg/dL (74-106)
[2021-07-18 20:43] VITALS: BP 150/90; PULSE 88; RESP 18; TEMP 36.7; O2SAT 98
[2021-07-18 21:50] VITALS: O2SAT 88
[2021-07-18 22:00] VITALS: PULSE 88; RESP 18
[2021-07-18 22:10] VITALS: BMI 37.7
[2021-07-18] MEDS: Acetaminophen 325 MG Tablet 650 MG PO (22:13)
[2021-07-18] MEDS: busPIRone 5 MG Tablet 10 MG PO (22:14)
[2021-07-18] MEDS: Magnesium Chloride 64 MG Delay Rel.Tablet 128 MG PO (22:14)
[2021-07-18] MEDS: ALPRAZolam 0.25 MG Tablet PO (22:14)
[2021-07-18] MEDS: APIXABAN 2.5 MG TABLET PO (22:15)
[2021-07-18 22:51] LABS: Bedside Glucose 115 mg/dL (74-106)
[2021-07-19 01:20] LABS: Bedside Glucose 120 mg/dL (74-106)
[2021-07-19 02:50] LABS: Bedside Glucose 110 mg/dL (74-106)
[2021-07-19] MEDS: oxyCODONE 5 MG Tablet PO ×2 (04:36→22:00)
[2021-07-19 04:51] LABS: Bedside Glucose 72 mg/dL (74-106)
[2021-07-19 06:18] VITALS: O2SAT 94
[2021-07-19 06:36] LABS: Bedside Glucose 151 mg/dL (74-106)
[2021-07-19] MEDS: busPIRone 5 MG Tablet 10 MG PO ×3 (06:36→21:23)
[2021-07-19 07:21] LABS: Hematocrit 30.7 % (37-47); Hemoglobin 10.2 g/dL (12.0-15.0); Mean Corp Hgb Conc 33.2 g/dL (32-36); Mean Corpuscular Volume 87.2 fL (81-99); Mean Platelet Vol. 10.2 fl (6.2-12.0); Platelet Count 312 K/mm3 (150-450); RBC Distribution Width CV 15.7 % (11.6-14.6); Red Blood Count 3.52 M/mm3 (4.2-5.4); White Blood Count 9.1 K/mm3 (4.4-11.0)
[2021-07-19] MEDS: APIXABAN 2.5 MG TABLET PO ×2 (07:35→21:23)
[2021-07-19] MEDS: Aspirin 81 MG TAB.CHEW PO (07:35)
[2021-07-19] MEDS: Cholecalciferol (Vit D3) 125 MCG CAPSULE (5,000 UNITS) PO (07:36)
[2021-07-19] MEDS: Magnesium Chloride 64 MG Delay Rel.Tablet 128 MG PO ×2 (07:36→21:22)
[2021-07-19] MEDS: Losartan Potassium 50 MG Tablet PO (07:37)
[2021-07-19] MEDS: Acetaminophen 325 MG Tablet 650 MG PO ×2 (07:38→13:49)
[2021-07-19 07:48] LABS: ALB/GLOB Ratio 0.6 RATIO (0.9-2.4); AST(SGOT) 32 U/L (15-37); Alanine Aminotransfer ALT/SGPT 51 U/L (13-56); Albumin, Serum 2.2 g/dL (3.2-5.0); Alkaline Phosphatase 76 U/L (45-117); Anion Gap 5 (5-15); BUN 14 mg/dL (7-18); BUN/Creat Ratio 18.6 RATIO (10-20); Calcium,Total 8.4 mg/dL (8.5-10.1); Chloride 111 mmol/L (98-107); Creatinine, Serum 0.75 mg/dL (0.55-1.02); EST Glomerular Filtration Rate 85 mL/min (>60); Est Glom Filt Rate - Afr Amer 103 mL/min (>60); Estimated Creatinine Clearance 63.95 ml/min; Globulin 3.6 g/dL (2.2-4.2); Glucose 126 mg/dL (74-106); Magnesium 1.8 mg/dL (1.6-2.6); Phosphorus 2.5 mg/dL (2.5-4.9); Potassium 3.9 mmol/L (3.5-5.1); Protein, Total 5.8 g/dL (6.4-8.2); Sodium Level 136 mmol/L (136-145)
[2021-07-19 08:19] VITALS: BP 153/74; PULSE 103; RESP 20; TEMP 37.2; O2SAT 92
[2021-07-19] MEDS: ALPRAZolam 0.25 MG Tablet PO ×2 (11:04→21:59)
[2021-07-19 11:06] LABS: Bedside Glucose 97 mg/dL (74-106)
[2021-07-19 11:33] VITALS: BMI 37.7
[2021-07-19 16:20] LABS: Bedside Glucose 97 mg/dL (74-106)
--- NOTE | 2021-07-19 18:42 | NURSING ---
Patient is alert to self. Patient can answer some questions appropriately but is mostly confused and needs reorientation and cues. This AM x 4 staff members including 2 therapists, she was [place] [facility] [place] have a BM and once on the toilet, she stated, do you guys have a toilet around her? Patient did not even try to have a BM and then reported she did not need to go. Patient had a BM the day before. Fluids encouraged, her mother brought her in electrolyte drinks because she will not drink water.
[2021-07-19 18:57] VITALS: BP 147/77; PULSE 97; RESP 18; TEMP 36.7; O2SAT 98
[2021-07-19 19:41] VITALS: O2SAT 96
--- NOTE | 2021-07-19 19:42 | CPS ---
set up pt home CPAP, Auto CPAP +5-+20, 21%, pt did not have mask gave her a Medium nasal mask, tolerating well at this time
[2021-07-19] MEDS: Senna/Docusate Sodium 1 Tablet 2 TABLET PO (21:22)
[2021-07-19 21:26] LABS: Bedside Glucose 122 mg/dL (74-106)
[2021-07-19 21:34] VITALS: BMI 37.7
[2021-07-19 22:00] VITALS: PULSE 94; RESP 14; RESP 18; O2SAT 89
--- NOTE | 2021-07-19 23:03 | NURSING ---
Pt restless and anxious this hs. Pt impulsive as well and demanding to get OOB. 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 Pt falls asleep readily but awakens suddenly making numerous demands. Pt removed CPAP and stated she will not wear this thing! O2 @ 2L has been applied. Staff is in and out of the room frequently.
[2021-07-20 00:56] LABS: Bedside Glucose 152 mg/dL (74-106)
[2021-07-20] MEDS: busPIRone 5 MG Tablet 10 MG PO ×3 (06:11→21:08)
[2021-07-20] MEDS: oxyCODONE 5 MG Tablet PO ×3 (06:42→21:52)
[2021-07-20] MEDS: Magnesium Hydroxide 30 ML UDC PO (06:47)
[2021-07-20 07:11] LABS: Bedside Glucose 159 mg/dL (74-106)
[2021-07-20 07:36] VITALS: BP 162/86; PULSE 96; RESP 18; TEMP 36.6; O2SAT 92
[2021-07-20] MEDS: Losartan Potassium 50 MG Tablet PO (08:25)
[2021-07-20] MEDS: Aspirin 81 MG TAB.CHEW PO (08:25)
[2021-07-20] MEDS: Magnesium Chloride 64 MG Delay Rel.Tablet 128 MG PO ×2 (08:25→21:10)
[2021-07-20] MEDS: Senna/Docusate Sodium 1 Tablet 2 TABLET PO ×2 (08:26→21:10)
[2021-07-20] MEDS: Cholecalciferol (Vit D3) 125 MCG CAPSULE (5,000 UNITS) PO (08:26)
[2021-07-20] MEDS: APIXABAN 2.5 MG TABLET PO ×2 (08:26→21:08)
[2021-07-20 11:17] LABS: Bedside Glucose 114 mg/dL (74-106)
--- NOTE | 2021-07-20 11:44 | EX.PCM.HP.RE ---
HPI - General General Date of Admission: 07/18/21 HPI Narrative GEMA LIVE, is a 56 YO F with a PMH of non-ischemic VT (hx of ICD placement), non-obstructive CAD, tobacco dependence in remission, TBI, seizure disorder, hx of CVA (hemorrhagic at the time of the TBI), HLD, CLARKE, HTN, endometrial CA (S/P radical hysterectomy in 2005), generalized anxiety, Major depression, urine retention due to a neurogenic bladder, hx of trigeminal neuralgia and obesity who presented to the ED at [facility] on 07/02/21 c/o TRAN followed by severe CP estimated at 02/01. She later developed pain in the R face. Chest x-ray in the emergency department showed mild left basilar atelectasis versus scarring and a hiatal hernia. CTA of the chest showed no evidence of pulmonary thromboemboli, thoracic aortic aneurysm or dissection. CTA of the head neck was normal. EKG showed no obvious ischemic changes. She was given a prescription for Pamelor 75 mg and also oxycodone 5 mg tablets. The following day she returned to the ED again c/o a severe R side TRAN. She had taken 3 doses of the Oxycodone 5 mg and Pamelor 75mg and had no relief. Pulse ox on RA at presentation to the ER was 80% and it came up to 89% on a 4LPM NC. BP was low at 70/56. She was not on oxygen at home. Lab was unremarkable with the exception of an elevated Troponin at 1390. She was admitted to the hospitalist service with acute respiratory failure and hypotension due to suspected overdose of sedative medications including Oxycodone/Pamelor and NSTEMI. Cardiology consult was ordered and also a ECHO. The echocardiogram showed dissection flap/ascending aortic dissection extending into the abdominal aorta with moderate aortic insufficiency. The EF was estimated at 55 to 60%. An urgent CTA of the abdomen and chest confirmed the aortic dissection. She was emergently transferred to [facility] for cardiothoracic surgery. Surgery was done on 07/04/21. She underwent root replacement #27 Konect, ascending and arch replacement with Gelweave tube graft with single sidearm, frozen elephant trunk CTAG [id number], left subclavian stent and reconstruction of the RCA ostium and left main ostium. In addition to the repair of the dissection she also had a ablation for VT. Post operatively she had increased neuro deficits including dysarthria and left side weakness and a CTH without contrast revealed possibly acute BL cerebellar infarcts and chronic LBG infarct. A cervical spine infarct was suspected by neurology and MRI of the C/T/L was recommended. I do not have any imaging reports of the C/T or LS spine. She also had a blood clot to the L radial artery and is on anticoagulation (Eliquis). Post op ECHO showed and EF of 55%n and the L atrium was not well visualized. Gema was transferred to the inpt acute rehab unit at [facility] on 07/18/21 for 3 hours of therapy daily to restore function/independence at or near her prior level of function. All documentation from the 2 ER visits to [facility], the inpt admission at [facility] and admission to [facility] were personally reviewed. She had a sleep study on 04/16/21. She had 0 apneas but. she had 90 hypopneas per hour. 46% of the time the O2 was less than 88% There were 0 PML's. She had a split study and when she had CPAP the O2 was < 89% only 12% of the time. She had 12 arousals per hour on CPAP. Interpretation: 1. Severe CLARKE that appears worse when she is supine. 2. ECG was irregular irregular at times with premature beats. 3. At CPAP of 11 the AHI improved to the mild range despite persistence of respiratory events when she was supine. When oxygen was added The AHI normalized. [facility] Medical History (Updated 07/21/21 @ 10:[address] Liberty Robertson, ) Arthritis Cognitive dysfunction COVID-19 DVT (deep venous thrombosis) (~07/14/21) Endometrial cancer Former tobacco use Generalized anxiety disorder History of IBS History of traumatic brain injury Hypertension ICD (implantable cardioverter-defibrillator) in place Infarction of left basal ganglia Insomnia Intracerebral bleed due to trauma Major depressive disorder, recurrent severe without psychotic features Neurogenic bladder CLARKE (obstructive sleep apnea) Prediabetes Right inguinal hernia SBO (small bowel obstruction) Seizure disorder Seizures Tobacco dependence due to cigarettes, in remission Urinary retention Ventricular tachycardia Home Medications losartan 50 mg PO DAILY 04/25/20 [History Last Taken 01/31/21] cholecalciferol (vitamin D3) [Vitamin D3] 125 mcg PO DAILY 07/02/21 [History Last Taken Unknown] acetaminophen [Tylenol] 650 mg PO Q4H PRN 07/18/21 [History Last Taken Unknown] alprazolam [Xanax] 0.25 mg PO BID PRN 07/18/21 [History Last Taken Unknown] apixaban 2.5 mg PO BID 07/18/21 [History Last Taken Unknown] aspirin 81 mg PO DAILY 07/18/21 [History Last Taken Unknown] buspirone 10 mg PO TID 07/18/21 [History Last Taken Unknown] dextrose 15 g PO TID PRN PRN 07/18/21 [History Last Taken Unknown] ipratropium-albuterol 3 ml INHALATION Q6H PRN 07/18/21 [History Last Taken Unknown] lidocaine HCl [Lidocaine Viscous] 1 applic MUCOUS MEMBRANE TID PRN 07/18/21 [History Last Taken Unknown] oxycodone 5 mg PO Q4H PRN PRN 07/18/21 [History Last Taken Unknown] Allergy/AdvReac Type Severity Reaction Status Date / Time nitrofurantoin Allergy Hives Verified 07/03/21 21:28 [From Macrobid] Penicillins [PCN] Allergy Swelling Verified 07/03/21 21:28 amlodipine AdvReac Other Verified 07/18/21 19:48 ciprofloxacin AdvReac Other Verified 07/18/21 19:48 erythromycin base AdvReac Upset Verified 07/03/21 21:28 [Erythromycin Base] Stomach lisinopril AdvReac Other Verified 07/18/21 19:47 sulfamethoxazole AdvReac Upset Verified 07/03/21 21:28 [From Bactrim] Stomach trimethoprim [From Bactrim] AdvReac Upset Verified 07/03/21 21:28 Stomach Family History (Updated 07/20/21 @ 14:[address] Liberty Robertson DO) Mother Cancer Hx endometrial CA. Hypertension Father Myocardial infarction Heart disease Hypertension Grandfather CAD (coronary artery disease) Diabetes Daughter Seizures Surgical History (Updated 07/20/21 @ 16:[address] Liberty Robertson DO) H/O umbilical hernia repair H/O: hysterectomy (~2005) History of cholecystectomy Hx of breast reduction, elective s/p right inguinal hernia repair with mesh (~06/27/18) Status post aortic dissection repair Status post club foot correction at Status post implantation of automatic cardioverter/defibrillator (AICD) Social History (Updated 07/20/21 @ 16:[address] 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 She had seizures. Smoking Status: Former smoker how long ago did patient quit smoking: She quit smoking in 1995 alcohol intake: current alcohol intake frequency: holidays/special occasions only substance use type: does not use ROS Constitutional Constitutional: Reports fatigue and weakness; Denies anorexia, change in weight, chills, fever(s) or night sweats Eyes Eyes: Denies blurry vision, change in vision, eye pain or loss of vision ENT HEENT: Denies abnormal hearing, dysphagia, headache(s), hearing loss, nasal congestion or sore throat Cardiovascular Cardiovascular: Reports chest pain and edema; Denies dyspnea on exertion, lightheadedness, orthopnea, palpitations, paroxysmal nocturnal dyspnea or syncope Respiratory/Chest Respiratory/Chest: Reports shortness of breath with exertion; Denies cough, dyspnea, shortness of breath at rest or wheezing Gastrointestinal Gastrointestinal: Reports constipation; Denies abdominal pain, diarrhea, dyspepsia, hematemesis, hematochezia, nausea or vomiting Genitourinary Genitourinary: Reports other Details: Flores present and the urine in the tubing is a dark yellow but it is clear. ; Denies dysuria, hematuria, nocturia, urinary frequency, urinary hesitancy, urinary incontinence or urinary urgency Musculoskeletal Musculoskeletal: Denies back pain, joint pain, joint swelling or neck pain Integumentary Integumentary: Reports dry skin, rash and other Details: many bruises ; Denies jaundice Neurologic Neurologic: Reports confusion and other Details: She has not had a seizure since the fall that lead to the hemorrhagic CVA vs hemorrhage due to injury. She is no antiepileptic drugs. She does have some persistent cognitive dysfunction since the TBI. ; Denies disequilibrium, dizziness, focal weakness, headache(s), paresthesias, seizures or tremor(s) Psychiatric Psychiatric: Reports anxiety, depression and other Details: She has thought she would be better off in the past but, would never try and hurt herself. ; Denies homicidal ideation or suicidal ideation Endocrine Endocrinology: Denies change in body appearance, polydipsia or polyuria Hematologic/Lymphatic Hematologic/Lymphatic: Reports easy bleeding and easy bruising; Denies lymphadenopathy Allergic/Immunologic Allergic/Immunologic: Denies rhinitis, eczemia or asthma Vital Signs Vital Signs Vital Signs: 07/19/21 18:57 07/19/21 19:41 07/19/21 22:00 Temperature 98.1 F Temperature Source Oral Pulse Rate 97 94 Respiratory Rate 18 14 Respiratory Effort Normal Respiratory Depth Shallow Respiratory Pattern Normal Apnea Blood Pressure 147/77 H Blood Pressure Mean 100 Blood Pressure Source Monitor Blood Pressure Position Sitting Blood Pressure Location Right Forearm Pulse Ox 98 96 89 Oxygen Delivery Method Room Air Room Air Oxygen Flow Rate (L/min) Fraction of Inspired Oxygen (FIO2) 21 07/20/21 07:36 07/20/21 10:00 07/20/21 10:38 Temperature 97.8 F Temperature Source Temporal Pulse Rate 96 Respiratory Rate 18 Respiratory Effort Respiratory Depth Respiratory Pattern Blood Pressure 162/86 H Blood Pressure Mean 111 Blood Pressure Source Monitor Blood Pressure Position Semi-Fowlers Blood Pressure Location Right Arm Pulse Ox 92 Oxygen Delivery Method Room Air Room Air Oxygen Flow Rate (L/min) 1.5 Fraction of Inspired Oxygen (FIO2) Weight Weight: 188 lb 0.869 oz Body Mass Index (BMI) 37.7 Indicators for Scoring Admitted with or Primary Diagnosis of CVA/Stroke: Yes Hx of CVA/Stroke: Yes Modified Towns Score MRS Score at time of Evaluation: 4-Moderate/severe disability NIHSS NIHSS 1a. Level of Consciousness: Alert; keenly responsive (she does nod off while I am talking with her but arouses to calling her name) 1b. LOC Questions: Answers one question correctly. 1c. LOC Commands: Performs one task correctly. (She closed her eyes when asked but, when I told her to open her eyes she opened her mouth repeatedly and not her eyes. She was able to make a fist with the left hand and releases when U told her to. ) 2. Best Gaze: Normal 3. Visual: No visual loss 4. Facial Palsy: Minor paralysis (flattened nasolabial fold, asymmetry on smiling) (when she smiles I see more teeth on the left than the R and there is mild flattening of the R nasolabial fold. ) 5a. Left Arm: No drift; arm holds 90 (or 45) degrees for full 10 seconds 5b. Right Arm: Drift; arm drifts downward but doesn?t hit the bed 6a. Left Leg: Some effort against gravity; (falls to the bed in 1 sec) 6b. Right Leg: Some effort against gravity; (fell to the bed at 5 sec) 7. Limb Ataxia: Absent 8. Sensory: Normal; no sensory loss 9. Best Language: [id number] aphasia; (She could not read the word Mama........She kept spelling it and saying M, A, M, A ) 10. Dysarthria: Normal 11. Extinction and Inattention: No abnormality Total: 9 Stroke Questions Stroke Team Activated: No Physical Exam Const well nourished Constitutional Narrative: She is alert when I arouse her but, she drifts off to sleep frequently and has to be aroused again. Seems very fatigued. She did not wear the CPAP last night......she said it was too tight. General Appearance: well developed HEENT normocephalic and head/scalp atraumatic HEENT Narrative: some dental caries. No thrush Mouth: dry mucous membranes Eyes PERRL and EOMs intact bilaterally Neck No nuchal rigidity, supple and no carotid bruits Neck Narrative: She has many bruises of the R neck and they are very tender to touch. General: trachea midline; Negative for lymphadenopathy Lymph Lymphatic: no lymphadenopathy noted Resp normal respiratory effort Resp Narrative: very diminished in the bases. Effort and Inspection: Negative for tachypneic, respiratory distress, labored or uses accessory muscles Auscultation: diminished lung sounds; Negative for wheezes Cardio regular rate, regular rhythm, S1 normal heart sound, S2 normal heart sound, no rub and no gallops Cardio Narrative: She has a soft 1-2/6 systolic MM over the second RICS GI normal to inspection, nondistended, normoactive bowel sounds, soft to palpation and non-tender Extremity Extremity Narrative: She has some edema of the ankles. She has no calf tenderness. General Extremity: edema; Negative for clubbing or cyanosis Skin no jaundice Skin Narrative: She has a sternal wound and the incision is intact and has no erythema and no DC. She also has an incision in the epigastric area and there are still sutures present. This incision is intact with no erythema and no discharge. She has bruising over the chest, neck, extremities. She is very tender in the Left wrist and this is where she has a radial clot. The fingers on both hands are warm with intact sensation. General Skin Exam: no breakdown Rashes: no rashes Neuro Neuro Narrative: See the NIHSS. She has mild trouble with word finding and some trouble with following instructions. This may be due to the fact that she has untreated CLARKE and she is very tired. She has generalized weakness. The Left arm is stronger than the R and the Left leg is weaker than the R. She has decreased plantar flexion on the L compared to the R. Psych cooperative, denies hallucinations, denies homicidal ideation and denies suicidal ideation Appearance: grossly normal and appropriate Attitude: calm and engaged Activity / Motor Behavior: appropriate eye contact; Negative for fidgetting, hyperactive, disorganized or restless Speech: normal speech Results Lab / Micro Data Result Diagrams: 07/19/21 07:12 07/19/21 07:12 Labs: Laboratory Results - last 24 hr 07/19/21 16:15: POC Glucose 97 07/19/21 21:19: POC Glucose 122 H 07/20/21 00:49: POC Glucose 152 H 07/20/21 06:52: POC Glucose 159 H 07/20/21 11:10: POC Glucose 114 H Assessment & Plan Assessment/Plan (1) Physical debility: (2) Recent non-ST elevation myocardial infarction (NSTEMI): (3) History of aortic dissection: (4) Status post aortic dissection repair: (5) Spinal cord infarction: (6) New cerebellar infarct: (7) Non-sustained ventricular tachycardia: (8) History of radiofrequency ablation (RFA) procedure for cardiac arrhythmia: (9) Acute blood loss anemia: (10) Chronic anemia: (11) Anxiety and depression: (12) Hypertension: QUALIFIERS: Hypertension type: essential hypertension Qualified Code(s): I10 - Essential (primary) hypertension (13) Pseudobulbar affect: (14) Insomnia: QUALIFIERS: Insomnia type: unspecified Qualified Code(s): G47.00 - Insomnia, unspecified (15) Obesity (BMI 30-39.9): (16) History of traumatic brain injury: (17) Acute respiratory failure with hypoxia: (18) Radial artery thrombosis, left: (19) CLARKE (obstructive sleep apnea): (20) Cognitive dysfunction: PLAN: PLAN PT for gait stability OT for ADL's ST for evaluation Analgesics as needed Bowel protocol Fall precautions Assess for Anxiety/Depression GI prophylaxis not necessary at this time.,....no nausea or epigastric pain DVT prophylaxis - Eliquis 2.5 BID for L radial artery or vein clot Follow up with cardiology, thoracic surgery and PCP following DC from [facility] AM lab including CMP, CBC, Mag and Phos - all personally reviewed I encouraged her to wear the CPAP - she refused last night. Nursing placed her on a NC at 2 LPM. Continue to encourage use of CPAP. She was hypoglycemia at arrival from [facility] and she is not on any hypoglycemic agents........overnight the BS's were WNL. I suspect she got a dose of insulin by mistake at previous hospital. The hypoglycemia was apparently new on the day of DC. I do not like Xanax in a pt with cognitive dysfunction and brenda with severe untreated CLARKE. Use sparingly and hopefully DC prior to DC. She is on Buspar and she is not currently on anything for depression. May benefit from an SSRI to treat anxiety and depression. Aggressive pulmonary toilet. Check a UA Maintain the Flores and she will need to be able to straight cath prior to DC or go home with a Flores Improvement will be slow if she is chronically sleep deprived and she will not likely reach her full potential unless she is complaint with the PAP therapy. Get an overnight trending pulse ox. Charges/Coding Visit Charges Inpatient E&M: 70949 Init Hosp L3
[2021-07-20 14:19] VITALS: O2SAT 97
[2021-07-20 14:22] VITALS: BMI 37.7
--- NOTE | 2021-07-20 16:05 | NURSING ---
pt requesting 4 side rails up while in bed. states she feels more comfortable that way
[2021-07-20 16:41] LABS: Bedside Glucose 99 mg/dL (74-106)
--- NOTE | 2021-07-20 17:06 | REHABEVAL_ITS ---
Admission Information Primary Diagnosis:: Physical debility due to aortic dissection with subsequent surgical repair and complications that include cerebellar infarcts and a suspected C3 spinal infarct that are likely embolic. Status Changes from Prescreening?: No changes Identified Actual Problem List:: DVT, Skin Intergrity, Pain, ALteration in Cmfrt, Cognitve Impr/Memory Loss, Depression, Bladder Incontinence, Bowel, Constipation, Mobility Impaired, Self Care Deficit, Know.Dfct/Disease Process, BP, Hypertension, Alteration/ Air Exchange, Fluid Change-Dehydration and Alteration- Leisure Activ. Potential Problem List:: DVT, Bleeding, Infection, UTI, Aspiration, Falls, Skin Integrity and Depression Risk of Complications DVT: XAVIER Hose and - (Eliquis) Bleeding: Monitor Lab Values, Nursing to Teach Precautions for anti-coagulation therapy., Wound, if applicable, to be assessed every shift. and Stroke patients assessed for lethargy or change in status. Infection: Clinical Staff to Monitor for S/S of infection: and S/S of infection include fever, redness, warmth, etc. Urinary Tract Infection: Monitor for frequency, burning, discomfort, or incon tinence. and Nursing will obtain urine sample for urinalysis and C&S when ordered. Aspiration: Clinical staff will monitor for coughing, drooling, congestion., Speech will evaluate swallowing and dsyphasia. and Nursing will monitor patient swallowing during meals. Falls: Patient will be evaluated for Fall Precautions and Patient will be placed on Fall Precautions as indicated per protocol. Skin Breakdown: Nursing will assess skin daily using assessment tool. and Nursing will place on Skin Breakdown Precautions as indicated. Pain: Clinical staff will assess patient's pain level per protocol., Medications will be given, if needed, and the pain level reassessed. and Other methods: Massage, distraction, decrease stimulus, etc. used PRN. Plan of Care Patient requires physician specializing in physical medicine and rehab oversight to provide close medical supervision of rehab issues including: Pain Management, Sleep Problems, Bowel and Bladder, Medical and co-morbidity Management, DVT prophylaxis, Rehabilitation Leadership and Coordination of treatment team Patient needs Physical Therapy: For a minimum of 1 hour and At least 5 out of 7 days Patient needs Physical Therapy to improve:: Mobility, Strengthening, Transfers, Stretching, ROM, Endurance, Stairs, Gait and Balance Patient needs Occupational Therapy: For a minimum of 1 hour and At least 5 out of 7 days Patient needs Occupational Therapy to improve ADL's incl.: Eating, Grooming, Bathing, Dressing, Toileting, Toilet transfers, Community Reintegration, Higher functioning activities, Household tasks, Adaptive Equipment, Splinting and Other activities as determined Patient requires speech therapy: For a minimum of 1 hour and At least 5 out of 7 days Patient requires speech therapy for: Swallowing, Cognition, Language Skills and Compensatory Strategies Patient requires 24/7 Rehabilitation Nursing for: Pain Issues, Identifying and preventing risk factors, Monitoring and reporting current medical conditions, Assisting with ambulation, transfer, and all ADL's, Teaching patients about disease process and medications, Family teaching, Providing safe environment, Bowel and Bladder Issues, Skin integrity and Medication Management Patient needs Yardage Control Clerk/ Case Management for: Discharge Planning, Arranging Home Equipment or Services and Family Interventions Patient needs Dietary and Nutrition Services for: Adequate Nutrition, Nutritional Supplements and Nutritional Education Goals Patient will remain: free from falls and or injury at time of discharge. Patient will perform bed mobility at: MOD I level of assist. Patient will complete transfers from bed to chair at: MOD I level of assist. Patient will ambulate: with LRD and - (150 ft) Patient will complete upper body dressing at: MOD I level of assist. Patient will complete lower body dressing at: - (MIN A or better with AD/AE) Patient will complete toileting at: - (toilet hygiene at SBA, transfer at min A or better) Patient will perform bathing at: - (min to mod assist) Patient will complete grooming at: MOD I level of assist. Patient will complete home management skills at: MOD I level of assist. Patient will achieve: - (1 curb step and 7 steps. ) Patient will have pain level of: of 3 or less Patient's skin will: remain intact Patient will receive: adequate nutrition. Discharge Planning Pt Prognosis for Sig. Practical Improv. w/in Reasonable Time: Good Estimated Length of stay (days): 28 Anticipated D/C Destination: Home Was Preadmission Assessment Accurate?: Yes
[2021-07-20 19:18] VITALS: BP 127/79; PULSE 90; RESP 17; TEMP 35.7; O2SAT 98
[2021-07-20 22:00] VITALS: PULSE 90; RESP 16
[2021-07-20 22:11] LABS: Bedside Glucose 149 mg/dL (74-106)
--- NOTE | 2021-07-20 22:16 | NURSING ---
22:00- RT notified that pt is ready for Trending Pulse Ox.
[2021-07-20 22:25] VITALS: PULSE 114; O2SAT 94
--- NOTE | 2021-07-20 22:32 | NURSING ---
RT in room to apply Trending Pulse Ox.
[2021-07-20 22:45] VITALS: BMI 37.7
[2021-07-21 00:56] LABS: Mucous, Urine 0 SEEN /hpf (<or=2+); Red Blood Cells-Urine 0 SEEN /hpf (0-5); Squamous Epithelial Cells - UA 0 SEEN /hpf (5-10)
[2021-07-21 00:57] LABS: Color, Urine Yellow (Yellow); Glucose, Dipstick Normal (Normal); Ketone-Dipstick Negative (Negative); Leukocyte Esterase-Dipstick 25 /ul (Negative); Nitrite-Dipstick Negative (Negative); Occult Blood-Urine Negative /ul (Negative); Protein-Dipstick Negative (Negative); Specific Gravity, Urine 1.005 (1.002-1.030); Urine Bilirubin Dipstick Negative (Negative); Urine Clarity Clear (Clear); Urine Urobilinogen Normal (Normal)
[2021-07-21 01:31] LABS: Bacteria RARE /hpf (None Seen); White Blood Cells 0-5 SEEN /hpf (0-5)
[2021-07-21] MEDS: busPIRone 5 MG Tablet 10 MG PO ×3 (06:24→20:17)
[2021-07-21] MEDS: oxyCODONE 5 MG Tablet PO ×2 (06:43→16:03)
[2021-07-21] MEDS: Acetaminophen 325 MG Tablet 650 MG PO ×3 (06:43→20:17)
[2021-07-21 07:01] LABS: Bedside Glucose 127 mg/dL (74-106)
[2021-07-21 07:15] VITALS: O2SAT 97
[2021-07-21 07:33] VITALS: BP 150/71; PULSE 105; RESP 16; TEMP 36.4; O2SAT 99
[2021-07-21] MEDS: Losartan Potassium 50 MG Tablet PO (07:56)
[2021-07-21] MEDS: Aspirin 81 MG TAB.CHEW PO (07:56)
[2021-07-21] MEDS: APIXABAN 2.5 MG TABLET PO ×2 (07:56→20:17)
[2021-07-21] MEDS: Cholecalciferol (Vit D3) 125 MCG CAPSULE (5,000 UNITS) PO (07:57)
[2021-07-21] MEDS: Senna/Docusate Sodium 1 Tablet 2 TABLET PO ×2 (07:57→20:16)
[2021-07-21] MEDS: Magnesium Chloride 64 MG Delay Rel.Tablet 128 MG PO ×2 (07:57→20:16)
--- NOTE | 2021-07-21 10:43 | PN_ITS ---
Subjective Subjective Afebrile VSS-blood pressures are erratic but the systolic blood pressure is more often than not greater than goal. The diastolic ranges from 40-90. Pulse rate ranges from 88-114. Maintaining appropriate oxygen saturation on RA while awake Oral intake is erratic...she took 1020 yesterday WT is stable. I reviewed the nutrition consult and appreciate the recommendations. No evidence of malnutrition exists. Discussed with nursing - no problems that need addressed. She was more alert and cooperative last night with nursing. Reviewed the PT/OT/ST notes Medication list reviewed. I reviewed the overnight trending pulse ox results and the study was done on RA. Approximately 14% of the time the pulse ox was less than 89% but, there were no desaturation events. The HR was > 100 most of the monitoring period and reached a high of 120. The UA had only 0-5 WBC's and rare bacteria. She continues to c/o chest wall pain. It does not radiate. She denies SOB and she is also denying palpitations, nausea and diaphoresis. She denies epigastric pain. Will apply oxygen at night if she is not wearing the CPAP....I continue to urge her to wear the CPAP because it will help with the cognitive dysfuncti on. Whenever I enter her room she is lying in bed sleeping.....no matter what time of day it is. She sometimes tells the therapist that she does not want to get out of bed and do therapy. She can not stay on topic when I talk with her and goes off on tangents and then perseverates on whatever topic she has picked. Attention span is very short and short term memory is poor. Objective Data Objective Data Vital Signs: Vital Signs Temp Pulse Resp BP Pulse Ox 97.6 F L 105 H 16 150/71 H 99 07/21/21 07:33 07/21/21 07:33 07/21/21 07:33 07/21/21 07:33 07/21/21 07:33 Oxygen Flow Rate (L/min) 1.5 Oxygen Delivery Method Room Air Weight: 189 lb 9.561 oz Body Mass Index (BMI) 37.7 Intake & Output: Intake and Output for Last 24 Hours 07/19/21 07/20/21 07/21/21 23:59 23:59 23:59 Intake Total 2060 / 2260 1020 / 1020 300 / 300 Output Total 1625 / 1875 1900 / 1900 825 / 825 Balance 435 / 385 -880 / -880 -525 / -525 Lab / Micro Data Result Diagrams: 07/19/21 07:12 07/25/21 22:24 Labs: Laboratory Results - last 24 hr 07/20/21 11:10: POC Glucose 114 H 07/20/21 16:33: POC Glucose 99 07/20/21 21:57: POC Glucose 149 H 07/20/21 23:11: Urine Color Yellow, Urine Clarity Clear, Urine pH 7.0, Ur Specific Thelma 1.005, Urine Protein Negative, Urine Glucose (UA) Normal, Urine Ketones Negative, Urine Occult Blood Negative, Urine Nitrite Negative, Urine Bilirubin Negative, Urine Urobilinogen Normal, Ur Leukocyte Esterase 25 H, Urine RBC 0 SEEN, Urine WBC 0-5 SEEN, Ur Squamous Epith Cells 0 SEEN, Urine Bacteria RARE, Urine Mucus 0 SEEN 07/21/21 06:30: POC Glucose 127 H Physical Exam Const Constitutional Narrative: Sleeping when I entered the room. Appears in no acute distress. Resp Resp Narrative: Initially had a few coarse crackles in the bases but, after several deep breaths the lungs were CTA. She is not tachypneic and she is able to speak in full sentences. Cardio regular rhythm, no murmurs and no gallops Cardio Narrative: She has a mild resting tachycardia with no ectopy. Heart sounds are distant over the apex. GI normal to inspection, nondistended, normoactive bowel sounds, soft to palpation and non-tender GI Narrative: no guarding with palpation Extremity no calf tenderness Extremity Narrative: Her ankles and feet are puffy but there is no pitting. There is also no pitting in the posterior thighs or over the distal tibia. Skin Skin Narrative: Incisions are healing well and have no erythema or DC. General Skin Exam: no breakdown Rashes: no rashes Neuro CN's II-XII intact bilaterally, moves all extremities and no focal motor deficits Psych denies hallucinations and denies homicidal ideation Psych Narrative: She is having some bad dreams at times Appearance: grossly normal Attitude: calm, No belligerent, No agitated, No aggressive and No hostile Activity / Motor Behavior: appropriate eye contact; Negative for psychomotor agitation, fidgetting, hyperactive or restless Speech: No slurred Mood & Affect: labile affect Thought Process: disorganized, flight of ideas, loose associations and perseverating Thought Content: No depersonalization Attention / Concentration: attention grossly impaired and concentration grossly impaired Memory / Cognition: cognition impaired Insight: poor Judgement: poor Assessment & Plan Assessment/Plan (1) Cognitive dysfunction: (2) CLARKE (obstructive sleep apnea): (3) Radial artery thrombosis, left: (4) Physical debility: (5) History of traumatic brain injury: (6) Acute blood loss anemia: (7) Insomnia: QUALIFIERS: Insomnia type: unspecified Qualified Code(s): G47.00 - Insomnia, unspecified (8) Recent non-ST elevation myocardial infarction (NSTEMI): (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 Continue therapy 2. Monitor the BP for another 2-3 days and if it remains elevated will need to adjust the antihypertensives. 3. Continue to encourage her to use the CPAP - she keeps perseverating on the fact that she got a mask from someplace in [place] and it was not the right size and then she never picked up another mask etc. there is a nasal mask in her room with the CPAP unit from the hospital and I told her that is hers to keep and she can use that one. Her cognitive dysfunction is a barrier to therapy. 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 Will continue to observe but if she is not able to do therapy for 3 hours daily will need to consider transfer to an SNF. She also is not willing to do things for herself and is asking staff to do things like feed her, move her cereal a few inches closer to her.....things that she could be doing for herself. I explained to her that the goal of therapy is to get her back to her prior level of function and her do things for herself to get stronger so that she may 1 day return home. Charges/Coding Visit Charges Inpatient E&M: 74885 Subs Hosp L2
[2021-07-21 10:58] VITALS: BP 129/65; BP 130/65; BP 136/64; PULSE 104; PULSE 96
[2021-07-21 14:49] VITALS: BMI 37.7
--- NOTE | 2021-07-21 15:45 | CASEMGMT ---
Social Work Met with patient to complete initial assessment. Introduced self and role. Pt wishes to have son, Osvaldo, as primary contact, whom is also HCPOA. Pt states she does not want her listed as a contact. Only disclosed he left me 4 years ago and I'm not going to have him know what's going on. Inquired about safety and returning home with him. She said she feels safe and has no issues with him otherwise. Offered support or to provide supportive listening if she chooses. Pt expressed understanding. Explained [facility] insurance with [employer] 07/28 and continued stay is not guaranteed with each review. The goal is for pt to return home, however, encouraged to begin brainstorming on alternative plans if she cannot go home directly from . Pt agreed. Will Team 07/23. SW to continue to follow. Sabina Lee, CARYN KRUSEW
[2021-07-21] MEDS: Bisacodyl 10 MG Suppository RC (16:03)
--- NOTE | 2021-07-21 18:07 | NURSING ---
pts mother questioning why pt has to use BSC and can not go in to restroom. explained to mother that the pt is not able to ambulate into the restroom to be transferred to the toilet, the pt is a 2A St pivot and is only able to stand for less than a minute at a time, so the BSC is used for her safety. pts mother also demanding that pt have her hair washed, this nurse explain to her that the pt is an ADL in the morning with OT and that the plan is to get the pt into the shower as long as the pt is able to transferred safely.
[2021-07-21 19:45] VITALS: BP 137/77; PULSE 97; RESP 16; TEMP 36.5; O2SAT 99; BMI 37.7
[2021-07-21] MEDS: Polyethylene Glycol 3350 17 GM PACKET PO (20:16)
[2021-07-21] MEDS: ALPRAZolam 0.25 MG Tablet PO (20:17)
[2021-07-22] MEDS: Acetaminophen 325 MG Tablet 650 MG PO (00:24)
[2021-07-22] MEDS: oxyCODONE 5 MG Tablet PO ×2 (00:24→08:32)
[2021-07-22] MEDS: busPIRone 5 MG Tablet 10 MG PO ×3 (06:32→22:12)
[2021-07-22] MEDS: Aspirin 81 MG TAB.CHEW PO (08:02)
[2021-07-22] MEDS: Polyethylene Glycol 3350 17 GM PACKET PO ×2 (09:15→22:13)
[2021-07-22] MEDS: APIXABAN 2.5 MG TABLET PO ×2 (09:15→22:12)
[2021-07-22] MEDS: Cholecalciferol (Vit D3) 125 MCG CAPSULE (5,000 UNITS) PO (09:15)
[2021-07-22] MEDS: Losartan Potassium 50 MG Tablet PO (09:15)
[2021-07-22] MEDS: Magnesium Chloride 64 MG Delay Rel.Tablet 128 MG PO ×2 (09:15→22:13)
[2021-07-22 10:00] VITALS: BP 136/86; PULSE 115; RESP 18; TEMP 36.3; O2SAT 98
[2021-07-22] MEDS: Senna/Docusate Sodium 1 Tablet 2 TABLET PO ×2 (10:08→22:13)
[2021-07-22] MEDS: Menthol/Lanolin/Calamine/Znox 113 GM Tube 1 APPLIC TOPICAL (10:08)
[2021-07-22 10:39] VITALS: O2SAT 98
[2021-07-22 14:44] VITALS: BMI 37.7
[2021-07-22 19:00] VITALS: BP 122/57; PULSE 113; RESP 18; TEMP 36.9; O2SAT 99
[2021-07-22 20:00] VITALS: PULSE 114; RESP 18; O2SAT 99
--- NOTE | 2021-07-22 20:09 | EKG12_ITS ---
Test Reason : CP Blood Pressure : / mmHG Vent. Rate : 115 BPM Atrial Rate : 115 BPM P-R Int : 142 ms QRS Dur : 072 ms QT Int : 298 ms P-R-T Axes : 017 002 005 degrees QTc Int : 412 ms Sinus tachycardia with occasional Premature ventricular complexes Nonspecific T wave abnormality Abnormal ECG Confirmed by RADHA GOODWIN, GABRIELLA ([id number]), deputy editor in chief VIVIANE YAO ([id number]) on 07/28/2021 1:14:45 PM Referred By: MARANDA Confirmed By:GABRIELLA GARCIA MD
--- NOTE | 2021-07-22 20:41 | RAD_ITS ---
INDICATION: chest pain EXAMINATION/TECHNIQUE: X-RAY - XR Chest 1 View COMPARISON: CT angiography thoracic and abdominal aorta 07/04/2021. Also compared with recent chest x-ray 07/04/2021 FINDINGS: LINES/DEVICES: Left chest x-ray cardiac device with leads projecting over right atrium and right ventricle unchanged. The device secures left costophrenic angle. New thoracotomy wires and aortic arch graft. New cardiac valve, likely aortic. Previously seen enteric tube and endotracheal tube are absent. LUNGS: Improved aeration of the lungs compared to prior exam. There appears to be some minimal residual bibasilar airspace disease likely representing atelectasis, associated with hiatal hernia on the left. No pneumothorax. No nodule, mass or significant pleural effusion. MEDIASTINUM AND CARDIOVASCULAR STRUCTURES: No significant mediastinal widening or heart enlargement. BONES AND SOFT TISSUES: No abnormality within limits of the exam. RAD/Chest 1 View (Portable) IMPRESSION: 1. No evidence of acute cardiopulmonary disease. 2. New aortic arch graft and cardiac valve status post thoracotomy. No significant mediastinal widening. 3. Hiatal hernia. Electronically Signed: Tenzin Mckeon DO at 22:01 EDT ,
[2021-07-22] MEDS: Aspirin 325 MG Tablet PO (20:58)
[2021-07-22] MEDS: Mag Hydrox/Al Hydrox/Simeth 30 ML UDC PO (21:10)
[2021-07-22 22:02] VITALS: BP 129/54; PULSE 111
[2021-07-22] MEDS: Nitroglycerin (INPATIENT USE) 0.4 MG TAB.SUBL SL ×2 (22:02→22:23)
[2021-07-22 22:08] LABS: Troponin-I HS 100 pg/mL (3.0-54.0)
[2021-07-22 22:23] VITALS: BP 119/62; PULSE 111
[2021-07-22 23:01] LABS: Erythrocyte Sedimentation Rate 54 mm/hr (0-30)
[2021-07-22 23:13] LABS: Troponin-I HS 122 pg/mL (3.0-54.0)
--- NOTE | 2021-07-22 23:46 | PCM.PN.BLA ---
Progress Note Patient with recent thoracic aneurysm repair currently on the rehabilitation unit complaining of sharp substernal chest pain at 10 out of 10. EKG with no ST-T wave abnormalities. Giving GI cocktail with no effect. Patient received nitroglycerin that brought her blood pressure but improved her symptoms. ESR and CRP ordered; returned elevated. Cannot rule out acute pericarditis at this time. Previously given aspirin 325 mg x 1. Will give additional aspirin 325 mg. Will start patient on colchicine. Last echocardiogram was on 07/04/2021. Patient was then transferred for ascending aortic dissection repair. High-sensitivity troponin x2 elevated: 102, then 122. Troponin on 07/03/2021 was 1215; 1245 and 1309. Will discuss with cardiology in the a.m.
[2021-07-23] MEDS: Aspirin 325 MG Tablet PO (00:01)
[2021-07-23] MEDS: Colchicine 0.6 MG TABLET PO ×3 (00:01→19:53)
[2021-07-23] MEDS: ALPRAZolam 0.25 MG Tablet PO (00:01)
--- NOTE | 2021-07-23 02:52 | NURSING ---
2004; Pt called nurse in states she has chest pain. Describes as burning pain. Radiates to back 1010. Skin warm and dry. O2 placed on per nc at 2 L. Called for EKG. VS 146/53, 114 hr, 100% spo2, rr 18, 98.2. 2009; EKG being done. Pt denies change in chest pain 10/10, burning pain in center of chest, radiates to back. Denies sob. Skin warm and dry. 2012; EKG Completed. VS 162/60, hr 115, 99% spo2 on 2 l o2. No changes in chest pain from above. 2014; Call to Dr. Sousa to update on pt status. 2019; Orders received from Dr. Sousa for stat chest xray, asa 325 mg po, order troponins x 3. 2027; current ekg and ekg from 07-[address] Sousa. 2049; VSS 159/40, hr 116, spo2 98%, rr 20, skin warm and dry states cp remains same, no change. pt laying on back with head elevated. 2057; Dr. Sousa here to see pt. 325 mg asa given po. Lab here to draw blood. 2109; GI cocktail given to pt. 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 Pt states Pain now at a 7/10. Center of chest. Radiation to back. Burning pain. Skin warm and dry. 2144; This nurse spoke to Dr. Sousa to give update on pt. Notified unable to get an IV. Nitro ordered sl. 2149; 142/69, 114 hr, 98% spo2 on 2 L nc, rr 20. CP at a 7. Burning pain center of chest with radiation to back. Skin warm and dry, Denies sob. 2201; 1 st nitro sl given. VS 129/54, hr 111, rr 18, spo2 98%. 2209; Pt diaphoretic. States she feels hot and woozy BP 97/41, hr 122, 96% on 2 l per nc, rr 18. Fan turned on. Pt given drink of water. Denies nausea. States Chest pain decreased to 5 out of 10. 2222; VS 119/62, 118 hr, 98% on 2 l per nc, rr 18. Skin warm and dry. Pt states she feels better the woozy feeling gone. 2nd nitro given sl. 2235; 114/62, 113 hr, 98% on2 l per nc, rr 18, skin warm and dry. Pt states chest pain is down to a 2. 2245; Pt continues to rest in bed. States chest pain is a 1 or less. Skin warm and dry. Pt denies sob. O2 remains on at 2 l per nc. 2330; Lab called this nurse with critical troponin 122. Call to Dr. Sousa with lab and update on pt. Orders received see jun. 0030; Pt sleeping at this time.
[2021-07-23 03:57] VITALS: BMI 37.7
[2021-07-23 04:42] LABS: Troponin-I HS 109 pg/mL (3.0-54.0)
--- NOTE | 2021-07-23 06:22 | ECHOD_ITS ---
Reason For Study: Chest pain Procedure This was a 2D Doppler, Color Flow transthoracic echocardiogram. The study was technically difficult. Patient scanned supine due to recent surgery. Technically limited due to incisions. No IV access. Patient scanned portable in rehab unit. Left Ventricle Normal LV size. Left ventricular systolic function is normal. The estimated ejection fraction is 60 %. No regional wall motion abnormalities noted. Right Ventricle Normal RV size. Normal systolic function. Pulmonic Valve Normal pulmonic valve. Great Vessels Normal aortic root. Pericardium/Pleural No pericardial effusion. Doppler Measurements & Calculations MV E max jewel: 53.4 cm/sec Lat Peak E' Jewel: 4.5 cm/sec Med Peak E' Jewel: 4.5 cm/sec MV A max jewel: 103.3 cm/sec E/E' lat: 11.8 E/E' med: 11.8 MV E/A: 0.52 Ao V2 max: 172.0 cm/sec PA V2 max: 88.2 cm/sec Ao max P.8 mmHg ECHO/Echo Complete Interpretation Summary Normal LV size. Left ventricular systolic function is normal. The estimated ejection fraction is 60 %. Ordering Physician: John Sousa Referring Physician: Slim Denson Performed By: Chapis Claros RDCS
[2021-07-23 07:00] VITALS: BP 155/73; PULSE 99; RESP 20; TEMP 36.4; O2SAT 95
[2021-07-23] MEDS: busPIRone 5 MG Tablet 10 MG PO ×3 (07:11→19:53)
[2021-07-23] MEDS: Aspirin 81 MG TAB.CHEW PO (08:15)
[2021-07-23 08:35] VITALS: BP 149/73; PULSE 107; RESP 18; TEMP 36.2; O2SAT 97
[2021-07-23 08:54] VITALS: PULSE 107
--- NOTE | 2021-07-23 09:26 | PCM.PROGNOTE ---
Subjective Subjective Gema was seen on TEAM rounds today. Her mother was present in the room and her son Osvaldo participated by phone. Afebrile VSS-systolic blood pressure is mildly elevated today. Heart rate has ranged from 10 7-1 14 over the past 24 hours. Maintaining appropriate oxygen saturation on RA-95 to 97% on room air. Oral intake is not accurately being recorded by nursing and the wt yesterday was 9 lbs less than the previous day........this can not be right Discussed with nursing - She had CP last night and she was evaluated by the hospitalist. I reviewed his note. The CP was sharp and she was resting when it started. No relief with a GI cocktail. She was given NTG with some relief of the pain. Troponin was very mildly elevated but really did not trend. She recently had thoracotomy for dissecting aortic aneurysm. An ECHO was ordered. Reviewed the PT/OT/ST notes Medication list reviewed. I reviewed the EKG from last night and there are NS ST and T wave changes and she is in SR. voltage is mildly decreased but, I suspect this is due to body habitus. I do not appreciate NC depression in any of the leads and There is no significant ST depression and no ST elevation. Troponins are not trending. She states she was lying in the bed last night and the CP started suddenly. It went through to her back. No radiation to the neck, jaw or arm. No diaphoresis. No lightheadedness. she had 2 NTG and she said the pain went from a 10 to a 1. She tells me that she has some soreness in the chest wqall today. The ESR and the CRP were elevated last night.....which they would be with the recent surgery.....and she was started on Colchicine for suspected pericarditis. Denies palpitations. She does have a large hiatal hernia and the pain could have been reflux, although the GI cocktail did not help. She refused to do therapy today. She tells me that she wore the CPAP last night BUT, there is no documentation that she did. She seems more alert today. She only started to nod off once when I was talking to her. Memory is poor and she can not remember if she ever got a CPAP machine after the sleep study in March......she did remember that Dr. Vazquez was the one who did the test. Will have to query the night staff if she did in fact wear the CPAP and for how long. Urine culture had yeast........no tx at this time Objective Data Objective Data Vital Signs: Vital Signs Temp Pulse Resp BP Pulse Ox 97.1 F L 107 H 18 149/73 H 97 07/23/21 08:35 07/23/21 08:54 07/23/21 08:35 07/23/21 08:35 07/23/21 08:35 Oxygen Flow Rate (L/min) 2 Oxygen Delivery Method Room Air Weight: 180 lb 12.465 oz Body Mass Index (BMI) 37.7 Intake & Output: Intake and Output for Last 24 Hours 07/21/21 07/22/21 07/23/21 23:59 23:59 23:59 Intake Total 1140 / 1140 60 / 260 460 / 460 Output Total 1575 / 1575 1000 / 1275 725 / 725 Balance -435 / -435 -940 / -1015 -265 / -265 Lab / Micro Data Result Diagrams: 07/19/21 07:12 07/25/21 22:24 Labs: Laboratory Results - last 24 hr 07/22/21 21:12: Troponin I High Sens 100 H, C-React Prot Ext Range 57.40 H 07/22/21 22:45: ESR 54 H 07/22/21 22:45: Troponin I High Sens 122 H* 07/23/21 03:41: Troponin I High Sens 109 H Micro: Microbiology 07/20/21 23:11 Urine Catheter - Flores Urine Culture - Final Lilia albicans Radiography Diagnostic Testing: Radiology Impression Chest X-Ray 07/22/21 20:41 IMPRESSION: 1. No evidence of acute cardiopulmonary disease. 2. New aortic arch graft and cardiac valve status post thoracotomy. No significant mediastinal widening. 3. Hiatal hernia. Electronically Signed: Tenzin Mckeon DO at 22:01 EDT , Physical Exam Const Constitutional Narrative: She is lying on her left side in bed and was sleeping when I entered the room. She appeared in no distress. General Appearance: uncooperative and other Not compliant with getting out of bed today for orthostatics or therapy. Chest Chest: symmetrical chest wall rise Resp Resp Narrative: Clear after a few deep breaths. Breathing is not labored. She nodded off to sleep once during my visit with her today and she was apneic. She is not tachypneic. Effort and Inspection: able to speak in complete sentences Cardio regular rhythm Cardio Narrative: Tachycardic at rest. Having premature beats. she has a soft systolic MM at the 2nd RICS with radiation to the apex. There is no pericardial friction rub. No gallop. No diastolic MM. The chest wall on the left is tender to palpation.......hx from this pt is a challenge because her memory is poor and she has some expressive aphasia. The bowel sounds are loud in the left chest. GI normal to inspection, nondistended, normoactive bowel sounds, soft to palpation and non-tender GI Narrative: obese. Extremity no calf tenderness Extremity Narrative: she has some edema in the ankles. Skin Skin Narrative: The chest and abdomen incisions are intact with no dehiscence. There is no purulent DC and no significant erythema. Assessment & Plan Assessment/Plan (1) Cognitive dysfunction: (2) CLARKE (obstructive sleep apnea): (3) History of traumatic brain injury: (4) Recent non-ST elevation myocardial infarction (NSTEMI): (5) New cerebellar infarct: (6) Status post aortic dissection repair: (7) History of aortic dissection: (8) Chest pain: PLAN: 1. I do not think the CP is cardiac but, in light of recent NSTEMI, aortic dissection with extension into the coronary ostia of 2 arteries I think the ECHO and a cardiology consult is warranted. A cortext was sent to Dr. Kothari about the consult. She has a large HH and the gastric bubble last night was in the left chest. She is not on a PPI and I suspect the pain last night might have been GI, even though the viscous Lidocaine did not relieve the pain. Will start her on a PPI BID. Will continue the colchicine for now......if no change in the pain in the next couple days will DC the colchicine. 2. Recheck CBC and a BMP and Mag in the AM 3. I reinforced with the patient that in order to be in an acute rehab facility she must d 3 hours of therapy daily and if she continues to refuse she will need to be downgraded to an SNF. I also reinforced again that she has severe CLARKE and she is confused and nods off when you are talking with her. If she is going to get back home and be functional she must wear the CPAP and have good sleep. She will not benefit from therapy to the degree she would if she had adequate sleep and the thought Charges/Coding Visit Charges Inpatient E&M: 80245 Subs Hosp L2
[2021-07-23] MEDS: APIXABAN 2.5 MG TABLET PO ×2 (12:03→19:53)
[2021-07-23] MEDS: Losartan Potassium 50 MG Tablet PO (12:03)
[2021-07-23] MEDS: Polyethylene Glycol 3350 17 GM PACKET PO ×2 (12:03→19:53)
[2021-07-23] MEDS: Magnesium Chloride 64 MG Delay Rel.Tablet 128 MG PO ×2 (12:03→19:52)
[2021-07-23] MEDS: Cholecalciferol (Vit D3) 125 MCG CAPSULE (5,000 UNITS) PO (12:04)
[2021-07-23] MEDS: Senna/Docusate Sodium 1 Tablet 2 TABLET PO ×2 (12:04→19:49)
--- NOTE | 2021-07-23 14:32 | CASEMGMT ---
Social Work IDT met with patient, mother and son via conference call for Team meeting. Discussed patient's progress in PT/OT/ST and nursing. IDT spoke on pt's recent refusals to work with therapy, low participation during therapy sessions, perseveration on topics, lack of consistency with wearing cpap and negative effects of that. Explained [facility] insurance update is 07/28 and will look at pt's progress. IDT nor insurance will continue to approve for pt to remain if she is unable to tolerate 3 hours of therapy a day or if she refuses therapy multiple times. Encouraged more independence, motivation to improve. Pt agreeable and understandable to all information. Mother and son agree with IDT. Explained pt will not be able to DC home from IRU and recommending SNF. Explained insurance may not cover SNF stay, then pt would need GENA or to pay privately. Provided in-network SNF list with Medicare data and a Medicaid application to complete to determine eligibility. Pt and family agreeable. Will ReTeam next week. SW to continue to follow. CARYN SebastianW
[2021-07-23 14:44] VITALS: BMI 37.7
[2021-07-23] MEDS: Menthol/Lanolin/Calamine/Znox 113 GM Tube 1 APPLIC TOPICAL ×2 (15:00→19:57)
[2021-07-23] MEDS: Magnesium Hydroxide 30 ML UDC PO (16:13)
--- NOTE | 2021-07-23 16:53 | CON.PCM.CA_ITS ---
Assessment & Plan Assessment/Plan (1) Chest pain: QUALIFIERS: Chest pain type: unspecified Qualified Code(s): R07.9 - Chest pain, unspecified PLAN: Appears musculoskeletal. Will monitor. ESR and CRP are elevated. She has been started on colchicine. If she has symptomatic benefit from this then we can continue this for a longer time. HPI Consult Data Date of Consult: 07/23/21 HPI Narrative HPI Narrative: ANGELITO LIVE, is a 56 F who is undergoing rehab after recent hospitalization for type a aortic dissection. She was found to have type a aortic dissection and was transferred to [facility]. She had a root replacement with reconstruction of the RCA and left main ostia, subclavian stent placement, V. tach ablation and and subsequently ICD placement. Patient is a somewhat poor historian. She does not recall her admission prior to surgery. She states that she has been having pain since surgery in the anterior part of the chest radiating to the back. She states that it has not changed. However her family member mentions that she has not mention chest pain in the past to her. It appears that patient had worsening of the chest pain yesterday. Patient also mentions that her bed is not very comfortable. Patient had a 2D echo today which is unremarkable. Review of systems: All systems reviewed. All else is negative except in HPI PFSH Medical History (Updated 07/23/21 @ 17:[address] Dominick Kothari MD) Arthritis Cognitive dysfunction COVID-19 DVT (deep venous thrombosis) (~07/14/21) Endometrial cancer Former tobacco use Generalized anxiety disorder History of IBS History of traumatic brain injury Hypertension ICD (implantable cardioverter-defibrillator) in place Infarction of left basal ganglia Insomnia Intracerebral bleed due to trauma Major depressive disorder, recurrent severe without psychotic features Neurogenic bladder CLARKE (obstructive sleep apnea) Prediabetes Right inguinal hernia SBO (small bowel obstruction) Seizure disorder Seizures Tobacco dependence due to cigarettes, in remission Urinary retention Ventricular tachycardia Home Medications losartan 50 mg PO DAILY 04/25/20 [History Last Taken 01/31/21] cholecalciferol (vitamin D3) [Vitamin D3] 125 mcg PO DAILY 07/02/21 [History Last Taken Unknown] acetaminophen [Tylenol] 650 mg PO Q4H PRN 07/18/21 [History Last Taken Unknown] alprazolam [Xanax] 0.25 mg PO BID PRN 07/18/21 [History Last Taken Unknown] apixaban 2.5 mg PO BID 07/18/21 [History Last Taken Unknown] aspirin 81 mg PO DAILY 07/18/21 [History Last Taken Unknown] buspirone 10 mg PO TID 07/18/21 [History Last Taken Unknown] dextrose 15 g PO TID PRN PRN 07/18/21 [History Last Taken Unknown] ipratropium-albuterol 3 ml INHALATION Q6H PRN 07/18/21 [History Last Taken Unknown] lidocaine HCl [Lidocaine Viscous] 1 applic MUCOUS MEMBRANE TID PRN 07/18/21 [History Last Taken Unknown] oxycodone 5 mg PO Q4H PRN PRN 07/18/21 [History Last Taken Unknown] Allergy/AdvReac Type Severity Reaction Status Date / Time nitrofurantoin Allergy Hives Verified 07/03/21 21:28 [From Macrobid] Penicillins [PCN] Allergy Swelling Verified 07/03/21 21:28 amlodipine AdvReac Other Verified 07/18/21 19:48 ciprofloxacin AdvReac Other Verified 07/18/21 19:48 erythromycin base AdvReac Upset Verified 07/03/21 21:28 [Erythromycin Base] Stomach lisinopril AdvReac Other Verified 07/18/21 19:47 sulfamethoxazole AdvReac Upset Verified 07/03/21 21:28 [From Bactrim] Stomach trimethoprim [From Bactrim] AdvReac Upset Verified 07/03/21 21:28 Stomach Family History (Updated 07/20/21 @ 14:[address] Liberty Robertson DO) Mother Cancer Hx endometrial CA. Hypertension Father Myocardial infarction Heart disease Hypertension Grandfather CAD (coronary artery disease) Diabetes Daughter Seizures Surgical History (Updated 07/20/21 @ 16:[address] Liberty Robertson DO) H/O umbilical hernia repair H/O: hysterectomy (~2005) History of cholecystectomy Hx of breast reduction, elective s/p right inguinal hernia repair with mesh (~06/27/18) Status post aortic dissection repair Status post club foot correction at Status post implantation of automatic cardioverter/defibrillator (AICD) Social History (Updated 07/20/21 @ 16:[address] 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 She had seizures. Smoking Status: Former smoker how long ago did patient quit smoking: She quit smoking in 1995 alcohol intake: current alcohol intake frequency: holidays/special occasions only substance use type: does not use Physical Exam Const alert and oriented x3 Orientation / Consciousness: awake HEENT normocephalic Eyes no scleral icterus Chest Chest: midline sternotomy incision Resp clear to auscultation bilaterally Cardio regular rate and regular rhythm Extremity no pedal edema Skin no rashes or lesions noted Neuro oriented x3 Risk Stratification Risk Stratification Applicable: No Charges/Coding Visit Charges Inpatient E&M: 90216 Init Hosp L2 Objective Data Vital Signs: Vital Signs Temp Pulse Resp BP Pulse Ox 97.1 F L 107 H 18 149/73 H 97 07/23/21 08:35 07/23/21 08:54 07/23/21 08:35 07/23/21 08:35 07/23/21 08:35 Oxygen Flow Rate (L/min) 2 Oxygen Delivery Method Room Air Weight: 180 lb 12.465 oz Body Mass Index (BMI) 37.7 Intake & Output: Intake and Output for Last 24 Hours 07/21/21 07/22/21 07/23/21 23:59 23:59 23:59 Intake Total 1140 / 1140 60 / 260 1070 / 1070 Output Total 1575 / 1575 1000 / 1275 1125 / 1125 Balance -435 / -435 -940 / -1015 -55 / -55 Lab / Micro Data Result Diagrams: 07/19/21 07:12 07/19/21 07:12 Labs: Laboratory Results - last 24 hr 07/22/21 21:12: Troponin I High Sens 100 H, C-React Prot Ext Range 57.40 H 07/22/21 22:45: ESR 54 H 07/22/21 22:45: Troponin I High Sens 122 H* 07/23/21 03:41: Troponin I High Sens 109 H Micro: Microbiology 07/20/21 23:11 Urine Catheter - Flores Urine Culture - Final Lilia albicans Cardiology Labs/Tests Rhythm: EKG: ECHO: Stress Test: Cardiac Cath: PCI: CT Surgery: Holter monitor: EPS: PPM: CXR: Chest CT Scan: Radiography Diagnostic Testing: Radiology Impression Chest X-Ray 07/22/21 20:41 IMPRESSION: 1. No evidence of acute cardiopulmonary disease. 2. New aortic arch graft and cardiac valve status post thoracotomy. No significant mediastinal widening. 3. Hiatal hernia. Electronically Signed: Tenzin Mckeon DO at 22:01 EDT , Echocardiogram 07/23/21 06:22 Interpretation Summary Normal LV size. Left ventricular systolic function is normal. The estimated ejection fraction is 60 %. Ordering Physician: John Sousa Referring Physician: Slim Denson Performed By: Chapis Claros RDCS
[2021-07-23 19:30] VITALS: BP 137/60; PULSE 107; RESP 18; TEMP 36.4; O2SAT 100
--- NOTE | 2021-07-23 21:17 | NURSING ---
Contacted respiratory due to patient complaints of CPAP mask not fitting well. Patient states that she will not wear it and she cannot tolerate it. Education provided on importance of wearing mask, patient voiced understanding.
[2021-07-23 21:21] VITALS: BMI 37.7
[2021-07-23] MEDS: Bisacodyl 10 MG Suppository RC (23:54)
--- NOTE | 2021-07-24 00:01 | NURSING ---
Respiratory fitted pt with a new cpap mask. Pt had mask off when this nurse entered the room.
--- NOTE | 2021-07-24 00:04 | NURSING ---
Pt has not had a bowel movement since 07/20/21, she has tried senna, miralax. with no result. Gave suppository will monitor.
[2021-07-24] MEDS: ALPRAZolam 0.25 MG Tablet PO (02:27)
--- NOTE | 2021-07-24 02:43 | NURSING ---
Pt had suppository with lg results.
[2021-07-24] MEDS: busPIRone 5 MG Tablet 10 MG PO ×3 (05:25→20:40)
[2021-07-24] MEDS: Aspirin 81 MG TAB.CHEW PO (08:06)
[2021-07-24] MEDS: APIXABAN 2.5 MG TABLET PO ×2 (08:07→20:41)
[2021-07-24] MEDS: Senna/Docusate Sodium 1 Tablet 2 TABLET PO ×2 (08:07→20:41)
[2021-07-24] MEDS: Cholecalciferol (Vit D3) 125 MCG CAPSULE (5,000 UNITS) PO (08:07)
[2021-07-24] MEDS: Magnesium Chloride 64 MG Delay Rel.Tablet 128 MG PO ×2 (08:07→20:41)
[2021-07-24] MEDS: Polyethylene Glycol 3350 17 GM PACKET PO ×2 (08:07→20:42)
[2021-07-24] MEDS: Menthol/Lanolin/Calamine/Znox 113 GM Tube 1 APPLIC TOPICAL (08:08)
[2021-07-24] MEDS: Losartan Potassium 50 MG Tablet PO (08:08)
[2021-07-24 08:30] VITALS: BP 126/82; PULSE 90; RESP 17; TEMP 36.6; O2SAT 98
[2021-07-24] MEDS: Colchicine 0.6 MG TABLET PO ×2 (09:49→20:40)
--- NOTE | 2021-07-24 14:36 | PN.CARD_ITS ---
Subjective Subjective Patient states her chest continues to remain sore. No significant worsening from baseline. 2D echo was unremarkable. Chest pain appears musculoskeletal at this time. She can follow-up with us as an outpatient. We will sign off at this time. If we can be of any further assistance please let us know. Thank you much for letting us participate in the care of this patient. Objective Data Vital Signs: Vital Signs Temp Pulse Resp BP Pulse Ox 97.8 F 90 17 126/82 H 98 07/24/21 08:30 07/24/21 08:30 07/24/21 08:30 07/24/21 08:30 07/24/21 08:30 Oxygen Flow Rate (L/min) 2 Oxygen Delivery Method Room Air Weight: 186 lb 4 oz Body Mass Index (BMI) 37.7 Intake & Output: Intake and Output for Last 24 Hours 07/22/21 07/23/21 07/24/21 23:59 23:59 23:59 Intake Total 60 / 260 1310 / 1310 1920 / 1920 Output Total 1000 / 1275 1425 / 1425 1720 / 1720 Balance -940 / -1015 -115 / -115 200 / 200 Lab / Micro Data Result Diagrams: 07/19/21 07:12 07/19/21 07:12 Cardiology Labs/Tests Rhythm: EKG: ECHO: Stress Test: Cardiac Cath: PCI: CT Surgery: Holter monitor: EPS: PPM: CXR: Chest CT Scan: Radiography Diagnostic Testing: Radiology Impression Echocardiogram 07/23/21 06:22 Interpretation Summary Normal LV size. Left ventricular systolic function is normal. The estimated ejection fraction is 60 %. Ordering Physician: John Sousa Referring Physician: Slim Denson Performed By: Chapis Claros RDCS Physical Exam Const alert and oriented x3 Orientation / Consciousness: awake HEENT normocephalic Resp normal respiratory effort Charges/Coding Visit Charges Inpatient E&M: 64982 Subs Hosp L2
[2021-07-24 16:26] VITALS: BMI 37.7
[2021-07-24 19:28] VITALS: BP 158/87; PULSE 109; RESP 14; TEMP 36.7; O2SAT 100
[2021-07-24 22:30] VITALS: BP 148/61; PULSE 108
--- NOTE | 2021-07-24 22:43 | NURSING ---
RT, Richi, called to explain the CPAP as pt was wondering why she had to wear the CPAP. RT changed the mask to a full mask and gave education to pt. Pt wondered how to get a drink if she wants one during the night. Then she wondered how she was going to talk through the night with the mask on. RT showed her how to use the magnetic straps.
--- NOTE | 2021-07-24 23:59 | NURSING ---
23:40- Pt found sitting in bed with CPAP off when staff when in to empty [place]. Pt stated, Oh, I'm supposed to have this CPAP on but I took it off to get a drink and couldn't figure it out to put it back on. Staff reeducated pt and put mask back on. Pt was reminded to call staff when she removes mask and needs assistance to get it back on.
[2021-07-25 01:09] VITALS: BMI 37.7
--- NOTE | 2021-07-25 04:32 | NURSING ---
0040 CPAP mask on. 0100 Pt awake with mask on. 0130 and 0200 mask on. 0300 Pt awake with mask on. SN notes left strap undone. Assisted Pt in repositioning mask and strap, added water to reservoir. 0400 Mask on. Pt sleeping 0430 Mask on. Pt sleeping. Pt seems much more compliant and comfortable with this mask.
[2021-07-25] MEDS: busPIRone 5 MG Tablet 10 MG PO ×3 (05:35→22:27)
[2021-07-25 07:06] VITALS: BP 139/67; PULSE 98; RESP 16; TEMP 36.6; O2SAT 98
--- NOTE | 2021-07-25 07:22 | NURSING ---
0530 Pt continued to leave mask on until staff assisted with AM care.
[2021-07-25] MEDS: Aspirin 81 MG TAB.CHEW PO (08:03)
[2021-07-25] MEDS: Colchicine 0.6 MG TABLET PO ×2 (08:09→22:26)
[2021-07-25] MEDS: Losartan Potassium 50 MG Tablet PO (08:09)
[2021-07-25] MEDS: APIXABAN 2.5 MG TABLET PO ×2 (08:10→22:27)
[2021-07-25] MEDS: Magnesium Chloride 64 MG Delay Rel.Tablet 128 MG PO ×2 (08:10→22:27)
[2021-07-25] MEDS: Polyethylene Glycol 3350 17 GM PACKET PO ×2 (08:10→22:24)
[2021-07-25] MEDS: Cholecalciferol (Vit D3) 125 MCG CAPSULE (5,000 UNITS) PO (08:11)
[2021-07-25] MEDS: Senna/Docusate Sodium 1 Tablet 2 TABLET PO (08:11)
[2021-07-25] MEDS: oxyCODONE 5 MG Tablet PO ×2 (08:52→21:49)
[2021-07-25 16:29] VITALS: BMI 37.7
--- NOTE | 2021-07-25 20:15 | CPS ---
pt will wear 2 l/m via nc if not on own cpap at night
[2021-07-25 21:25] VITALS: PULSE 100; RESP 18; TEMP 36.6; O2SAT 100; BMI 37.7
[2021-07-25 21:27] VITALS: BP 171/81; PULSE 112
[2021-07-25] MEDS: Nitroglycerin (INPATIENT USE) 0.4 MG TAB.SUBL SL (21:27)
--- NOTE | 2021-07-25 21:47 | NURSING ---
2126 staff to pt room and pt reports that she is having chest pain a 9/10 on pain scale , pt stated that her pain is in her chest and back. vs as follows:171/81 ap112 and spo2 was 94%. bp retaken in 5 mins and bp was 147/46 ap 120, and spo2 was 95% . rn made aware and went in to see pt, when asked by rn pt was still stating that her pain was a 7/10, then pt stated that she though it was more muscle and bone pain now. 2148 rn called hospitalist and gave pt a oxyir at ths time.
[2021-07-25 22:00] VITALS: BP 142/83; PULSE 110; O2SAT 95
--- NOTE | 2021-07-25 22:17 | EKG12_ITS ---
Test Reason : CP Blood Pressure : / mmHG Vent. Rate : 113 BPM Atrial Rate : 113 BPM P-R Int : 158 ms QRS Dur : 072 ms QT Int : 312 ms P-R-T Axes : 032 -01 055 degrees QTc Int : 427 ms Sinus tachycardia with frequent Premature ventricular complexes Nonspecific T wave abnormality Abnormal ECG When compared with ECG of 22-JUL-2021 20:13, MANUAL COMPARISON REQUIRED, DATA IS UNCONFIRMED Confirmed by CAITLYN GOODWIN, VAMSI ([id number]), editor magazine [employer] ([id number]) on 08/07/2021 1:30:26 PM Referred By: MARANDA Confirmed By:JALIL BRADY MD
[2021-07-25 22:20] VITALS: BP 152/86; PULSE 111; O2SAT 98
[2021-07-25] MEDS: Acetaminophen 325 MG Tablet 650 MG PO (22:24)
[2021-07-25] MEDS: Menthol/Lanolin/Calamine/Znox 113 GM Tube 1 APPLIC TOPICAL (22:27)
[2021-07-25 22:47] LABS: Anion Gap 6 (5-15); BUN 17 mg/dL (7-18); Calcium,Total 8.7 mg/dL (8.5-10.1); Chloride 110 mmol/L (98-107); Creatinine, Serum 0.68 mg/dL (0.55-1.02); EST Glomerular Filtration Rate 95 mL/min (>60); Est Glom Filt Rate - Afr Amer 115 mL/min (>60); Estimated Creatinine Clearance 70.54 ml/min; Glucose 126 mg/dL (74-106); Magnesium 1.7 mg/dL (1.6-2.6); Sodium Level 139 mmol/L (136-145)
[2021-07-25 23:16] LABS: Troponin-I HS 34 pg/mL (3.0-54.0)
[2021-07-26] MEDS: ALPRAZolam 0.25 MG Tablet PO (00:09)
[2021-07-26 00:53] LABS: Troponin-I HS 38 pg/mL (3.0-54.0)
--- NOTE | 2021-07-26 02:00 | NURSING ---
late entry; 07-25-2021 214 MANAGER NURSING HOME notified RN pt is complaining of chest pain. This RN went into assess pt. MANAGER NURSING HOME had given pt a nitro sl and her chest pain had gone from a 9-02/01 with bp 171/81, hr 112 to a 710 bp 147/46 hr 120. Pt states chest pain is more muscular and bone. Assessment done on pt per RN. It was noted by both RN and MANAGER NURSING HOME pt had increased irregular beats so an EKG was ordered. Call to Dr. Sousa with update on pt vs, that she had received nitro sl x 1, oxycodone 5 mg and that an EKG had been done and cortexted to him along with the EKG from Tue-. Orders received for labs. Pts pain decreased throughout the [place]. Pt is resting in recliner without complaint. She is sleeping well. Cpap in place.
--- NOTE | 2021-07-26 04:14 | NURSING ---
0400 staff making hourly rounds and noted that pt had her cpap off and went in and assisted pt in reapplying. pt thanked staff and stated that she was sleeping better in the recliner. no other needs were voiced and call light was in reach. 0410 rn going up the [place] and noted that pt had her c-pap off again and assisted pt reapplying, after assisting pt getting a drink.
--- NOTE | 2021-07-26 04:17 | NURSING ---
Reviewed and agree with IMPREGNATOR CARBON PRODUCTS assessment and handoff.
[2021-07-26] MEDS: oxyCODONE 5 MG Tablet PO ×3 (05:18→18:17)
[2021-07-26] MEDS: Acetaminophen 325 MG Tablet 650 MG PO (05:19)
[2021-07-26] MEDS: busPIRone 5 MG Tablet 10 MG PO ×3 (05:19→22:19)
[2021-07-26 05:29] LABS: Troponin-I HS 33 pg/mL (3.0-54.0)
--- NOTE | 2021-07-26 07:30 | NURSING ---
0730 pt wore her c-pap for 3 hour and 49 minutes per what was on the c-pap machine
[2021-07-26 07:42] VITALS: BP 159/97; PULSE 71; RESP 18; TEMP 36.9; O2SAT 99
[2021-07-26] MEDS: Cholecalciferol (Vit D3) 125 MCG CAPSULE (5,000 UNITS) PO (08:15)
[2021-07-26] MEDS: Magnesium Chloride 64 MG Delay Rel.Tablet 128 MG PO ×2 (08:15→22:19)
[2021-07-26] MEDS: Aspirin 81 MG TAB.CHEW PO (08:15)
[2021-07-26] MEDS: Polyethylene Glycol 3350 17 GM PACKET PO ×2 (08:16→22:20)
[2021-07-26] MEDS: Colchicine 0.6 MG TABLET PO ×2 (08:16→22:19)
[2021-07-26] MEDS: APIXABAN 2.5 MG TABLET PO ×2 (08:16→22:19)
[2021-07-26] MEDS: Losartan Potassium 50 MG Tablet PO (08:16)
[2021-07-26] MEDS: Menthol/Lanolin/Calamine/Znox 113 GM Tube 1 APPLIC TOPICAL ×2 (08:17→22:21)
[2021-07-26 10:52] VITALS: O2SAT 98
[2021-07-26 14:46] VITALS: BMI 37.7
[2021-07-26] MEDS: Acetaminophen 500 MG Tablet 1000 MG PO ×2 (14:54→22:19)
[2021-07-26 22:30] VITALS: BP 150/70; PULSE 97; RESP 18; TEMP 36.6; O2SAT 95; BMI 37.7
[2021-07-27] MEDS: oxyCODONE 5 MG Tablet PO ×5 (01:40→18:16)
--- NOTE | 2021-07-27 03:38 | NURSING ---
Reviewed and agree with BUSINESS LIAISON OFFICER assessment.
[2021-07-27] MEDS: Acetaminophen 500 MG Tablet 1000 MG PO ×3 (05:41→21:03)
[2021-07-27] MEDS: busPIRone 5 MG Tablet 10 MG PO ×3 (05:41→21:04)
--- NOTE | 2021-07-27 06:24 | NURSING ---
0649 pt noted to have c-pap on for 6 hour and 27minutes approximately this past hs
[2021-07-27 07:05] VITALS: O2SAT 94
[2021-07-27] MEDS: Aspirin 81 MG TAB.CHEW PO (07:35)
[2021-07-27 07:47] VITALS: BP 155/89; PULSE 94; RESP 16; TEMP 36.7; O2SAT 96
--- NOTE | 2021-07-27 08:09 | CASEMGMT ---
Addendum entered by Sabina Lee 07/27/21 13:24: [facility] can accept pt. Contacted son to update and inquire about GENA macy or paying privately. Son stated he is working on the GENA macy and will provide to this worker. Reexplained insurance precert at SN[facility] and needing alternative payment. Son expressed understanding. Original Note: Social Work Received voicemail from son requesting referral to [facility] for alternative DC plan. Referral made. CARYN Sebastian MARBLE SETTER HELPER
[2021-07-27] MEDS: Colchicine 0.6 MG TABLET PO ×2 (11:59→21:04)
[2021-07-27] MEDS: Cholecalciferol (Vit D3) 125 MCG CAPSULE (5,000 UNITS) PO (11:59)
[2021-07-27] MEDS: APIXABAN 2.5 MG TABLET PO ×2 (12:00→21:04)
[2021-07-27] MEDS: Senna/Docusate Sodium 1 Tablet 2 TABLET PO (12:00)
[2021-07-27] MEDS: Magnesium Chloride 64 MG Delay Rel.Tablet 128 MG PO ×2 (12:01→21:03)
[2021-07-27] MEDS: Menthol/Lanolin/Calamine/Znox 113 GM Tube 1 APPLIC TOPICAL ×2 (12:01→21:04)
[2021-07-27] MEDS: Losartan Potassium 50 MG Tablet PO (12:02)
[2021-07-27 12:59] VITALS: BMI 37.7
[2021-07-27 16:35] LABS: Bedside Glucose 109 mg/dL (74-106)
[2021-07-27 19:37] VITALS: BP 179/97; PULSE 97; RESP 14; TEMP 36.6; O2SAT 100
[2021-07-27] MEDS: Polyethylene Glycol 3350 17 GM PACKET PO (21:03)
[2021-07-27 21:21] VITALS: BMI 37.7
--- NOTE | 2021-07-27 23:07 | NURSING ---
CPAP on at 2245
[2021-07-28] VITALS (8 sets, daily range): BP systolic 130–173; BP diastolic 73–95; PULSE 89–110; RESP 16–18; TEMP 36.2–37; O2SAT 100; BMI 37.7
--- NOTE | 2021-07-28 02:13 | NURSING ---
CPap removed by patient between rounds. Reapplied without complaint.
--- NOTE | 2021-07-28 02:41 | NURSING ---
Staff has found cpap removed within minutes of replacing the cpap. Pt calims that her teeth hurt and recalled a story about covid and being told her sinuses were filled with fluid and causing oral discomfort.
[2021-07-28] MEDS: oxyCODONE 5 MG Tablet PO ×3 (02:48→18:29)
[2021-07-28] MEDS: ALPRAZolam 0.25 MG Tablet PO (03:17)
--- NOTE | 2021-07-28 03:32 | NURSING ---
Responded to patient yelling out. Patient in chair trying to take of CPAP. Patient stating that her foot is cramping and that she is so tense. She states she is restless and anxious. She is unable to sleep. PRN Xanax given by MILL CRANE OPERATOR and banana. Mask remains off as patient continues to eat a banana. Patient states that she will call staff back into room to put mask back on when she is finished eating.
--- NOTE | 2021-07-28 04:05 | NURSING ---
Patient states that she will not be going back to sleep and will not be placing CPAP on. She is awake and on her phone currently.
--- NOTE | 2021-07-28 04:16 | NURSING ---
CPAP in place for about 5 hours overnight.
--- NOTE | 2021-07-28 04:17 | NURSING ---
Reviewed and agree with RAW PRODUCTS DIRECTOR documentation and assessment charting.
[2021-07-28] MEDS: Acetaminophen 500 MG Tablet 1000 MG PO ×3 (04:36→21:26)
[2021-07-28] MEDS: busPIRone 5 MG Tablet 10 MG PO ×3 (04:36→21:26)
--- NOTE | 2021-07-28 07:40 | NURSING ---
Appointments for lab, ekg, xray and f/u with cardiology at [facility] for today, canceled. Will call to reschedule once patient is closer to D/C date.
[2021-07-28] MEDS: Colchicine 0.6 MG TABLET PO (08:10)
[2021-07-28] MEDS: Losartan Potassium 50 MG Tablet PO (08:10)
[2021-07-28] MEDS: Aspirin 81 MG TAB.CHEW PO (08:10)
[2021-07-28] MEDS: Polyethylene Glycol 3350 17 GM PACKET PO ×2 (08:11→21:26)
[2021-07-28] MEDS: Cholecalciferol (Vit D3) 125 MCG CAPSULE (5,000 UNITS) PO (08:11)
[2021-07-28] MEDS: APIXABAN 2.5 MG TABLET PO ×2 (08:11→21:26)
[2021-07-28] MEDS: Magnesium Chloride 64 MG Delay Rel.Tablet 128 MG PO ×2 (08:18→21:26)
[2021-07-28] MEDS: Menthol/Lanolin/Calamine/Znox 113 GM Tube 1 APPLIC TOPICAL ×2 (08:33→22:09)
--- NOTE | 2021-07-28 09:35 | PN_ITS ---
Subjective Subjective Afebrile VSS-blood pressures are frequently elevated, both systolic and diastolic. Heart rate over the past few days has ranged from 71-1 10. Maintaining appropriate oxygen saturation on RA Oral intake is good Discussed with nursing -She was awake frequently last night and c/o pain. She was repositioned a few times. She had Oxycodone 5 times yesterday and had 1 Xanax. She wears the CPAP inconsistently and takes it off, nursing replaces. When she wore the CPAP for 6 hours her performance in therapy was much better the following day.......not as good today due to restlessness and inability to sleep last night and she took the mask off several times. Reviewed the PT/OT/ST notes Medication list reviewed. Gema is c/o pain in the Left foot today and last night. She had this at home prior to the dissection. What she is describing to me is restless leg. Prior to the dissection she had been taking Gabapentin 400 mg BID and she states that worked for her. She is not c/o chest pain today. She denies dysuria, SOB, lightheadedness, N/V or abd pain, cephalgia. She takes the Xanax when she has pain and it is not time for Oxycodone. She denies cough, sore throat, nasal DC. Urine grew Lilia Albicans......she has no vaginal itching or pain and she is AF so will not treat at this time. Objective Data Objective Data Vital Signs: Vital Signs Temp Pulse Resp BP Pulse Ox 98.6 F 110 H 16 159/76 H 100 07/28/21 07:30 07/28/21 07:30 07/28/21 07:30 07/28/21 07:30 07/28/21 09:07 Oxygen Flow Rate (L/min) 2 Oxygen Delivery Method Room Air Weight: 278 lb 10.629 oz Body Mass Index (BMI) 37.7 Intake & Output: Intake and Output for Last 24 Hours 07/26/21 07/27/21 07/28/21 23:59 23:59 23:59 Intake Total 1450 / 1450 1570 / 2520 1350 / 1350 Output Total 1000 / 1000 1300 / 1750 900 / 900 Balance 450 / 450 270 / 770 450 / 450 Lab / Micro Data Result Diagrams: 07/19/21 07:12 07/25/21 22:24 Labs: Laboratory Results - last 24 hr 07/27/21 16:28: POC Glucose 109 H Micro: Microbiology 07/20/21 23:11 Urine Catheter - Flores Urine Culture - Final Lilia albicans Physical Exam Const Constitutional Narrative: She is alert when I entered the room and she did not appear to be in any distress. She perseverates and it not always on the same topic. Today she is perseverating about the pain in her L>R leg and has retold a story about this several times. She can not seem to remember what I have told her we are going to do about this and then tells me the story again. General Appearance: cooperative Eyes conjunctivae normal and no scleral icterus Chest Chest Narrative: The sternal incision is intact with no dehiscence, no erythema and no DC. Chest: symmetrical chest wall rise Resp normal respiratory effort, normal air movement and clear to auscultation bilaterally Effort and Inspection: able to speak in complete sentences Cardio regular rate, regular rhythm, S1 normal heart sound, S2 normal heart sound, no murmurs and no gallops Cardio Narrative: no ectopy GI GI Narrative: sutures were removed from the abd incision today and there is no erythema, dehiscence and no purulent DC. No significant swelling around the incision Extremity no calf tenderness Extremity Narrative: no putting edema Skin General Skin Exam: no breakdown Rashes: no rashes Neuro CN's II-XII intact bilaterally and moves all extremities Assessment & Plan Assessment/Plan (1) Cognitive dysfunction: (2) CLARKE (obstructive sleep apnea): PLAN: 1. DC Xanax - Continue the Buspar. She does not appear anxious. She is not restless or fidgeting. She is almost always sleeping during the day when I enter her room. Will try adding Seroquel at HS to help re-establish the sleep wake cycle. 2. Change oxycodone to 5 mg p.o. every 6 hours as needed pain. She has not macy eared to be in any significant distress when she is asking for pain medication and she has pain at multiple different sites. Will try topical agents and try to wean off the narcotic as I am sure it contributes to her sleeping during the day. she was started on Tylenol 1 GM Q8H over the weekend to help with pain. 3. chest pain is not cardiac....it is likely musculoskeletal. Will try arthritis compounded cream with Lidocaine, Baclofen and Voltaren 3 times a day. 4. Repeat a CBC, BMP and mag in the AM. 5. She is only on Cozaar for BP - will add a cardioselective beta-adilene to help control heart rate and decrease the BP. Orthostatics in the AM. Check the BP Q4H while awake 6. Start Neurontin 200 mg at night - I do not know if she was being treated for neuropathy or RLS with this. It makes sense that she would have RLS due to severe CLARKE in a non-compliant patient who will not wear CPAP. Since she is anemic and has been microcytic in the past will also check iron studies to r/o iron deficiency as contributing to RLS sx. Charges/Coding Visit Charges Inpatient E&M: 88993 Subs Hosp L2
[2021-07-28] MEDS: Metoprolol Tartrate 25 MG Tablet PO ×2 (11:39→21:26)
--- NOTE | 2021-07-28 13:43 | NURSING ---
Sutures okay to remove per CC physician. 4 Sutures removed on abdomen. Scabbing intact and overlapping of the skin healed but noted. Patient tolerated removal overall pretty well. No complaints at this time. Will continue to monitor.
[2021-07-28] MEDS: Arthritis Pain Compound 60 CLICK TUBE TOPICAL ×2 (13:52→21:23)
--- NOTE | 2021-07-28 14:41 | CASEMGMT ---
Social Work Spoke with son to update on insurance NRD 08/03. Reminded son to provide this worker with completed GENA macy. Sabina Lee ,WORM FARM LABORER RESIDENTIAL MENTAL HEALTH WORKER
[2021-07-28] MEDS: QUEtiapine 25 MG Tablet PO (21:25)
[2021-07-28] MEDS: Gabapentin 100 MG Capsule 200 MG PO (21:25)
[2021-07-29] VITALS (7 sets, daily range): BP systolic 110–171; BP diastolic 67–100; PULSE 81–106; RESP 16–18; TEMP 36.4–36.8; O2SAT 95–99; BMI 37.7
--- NOTE | 2021-07-29 02:07 | NURSING ---
pt placed on her cpap at 2230 and rested well until 0020, staff assisted in putting cpap back on, pt continues to rest quietly. 0100 c-pap off and pt rings for assistance to place back and then completed task herself
--- NOTE | 2021-07-29 02:16 | NURSING ---
Reviewed and agree with SUPERVISOR FABRICATION documentation and assessment charting.
[2021-07-29] MEDS: busPIRone 5 MG Tablet 10 MG PO ×2 (05:36→20:36)
[2021-07-29] MEDS: Acetaminophen 500 MG Tablet 1000 MG PO ×3 (05:36→20:35)
[2021-07-29] MEDS: Arthritis Pain Compound 60 CLICK TUBE TOPICAL ×3 (05:36→20:14)
[2021-07-29 05:56] LABS: Hematocrit 34.4 % (37-47); Hemoglobin 10.8 g/dL (12.0-15.0); Mean Corp Hgb Conc 31.4 g/dL (32-36); Mean Corpuscular Hgb 28.6 pg (27.0-32.0); Mean Corpuscular Volume 91.2 fL (81-99); Mean Platelet Vol. 9.6 fl (6.2-12.0); Platelet Count 258 K/mm3 (150-450); RBC Distribution Width CV 16.9 % (11.6-14.6); RBC Distribution Width SD 54.9 fl (35.1-43.9); Red Blood Count 3.77 M/mm3 (4.2-5.4); White Blood Count 4.3 K/mm3 (4.4-11.0)
[2021-07-29 06:22] LABS: Anion Gap 4 (5-15); BUN 12 mg/dL (7-18); BUN/Creat Ratio 18.4 RATIO (10-20); Calcium,Total 9.3 mg/dL (8.5-10.1); Chloride 111 mmol/L (98-107); Creatinine, Serum 0.65 mg/dL (0.55-1.02); EST Glomerular Filtration Rate 100 mL/min (>60); Est Glom Filt Rate - Afr Amer 121 mL/min (>60); Estimated Creatinine Clearance 73.79 ml/min; Ferritin 223 ng/mL (8-252); Glucose 92 mg/dL (74-106); Iron 74 ug/dL (50-170); Iron Binding Capacity,Total 495 ug/dL (250-450); Magnesium 2.1 mg/dL (1.6-2.6); PERCENT IRON SATURATION 14.9 % (15.0-55.0); Potassium 4.1 mmol/L (3.5-5.1); Sodium Level 138 mmol/L (136-145)
[2021-07-29] MEDS: oxyCODONE 5 MG Tablet PO ×2 (06:37→12:41)
--- NOTE | 2021-07-29 06:41 | NURSING ---
pt used her c-pap for 7 hours and 51 minutes
[2021-07-29] MEDS: Menthol/Lanolin/Calamine/Znox 113 GM Tube 1 APPLIC TOPICAL ×2 (08:26→20:39)
[2021-07-29] MEDS: Metoprolol Tartrate 25 MG Tablet PO ×2 (08:29→20:36)
[2021-07-29] MEDS: Cholecalciferol (Vit D3) 125 MCG CAPSULE (5,000 UNITS) PO (08:29)
[2021-07-29] MEDS: APIXABAN 2.5 MG TABLET PO ×2 (08:29→20:36)
[2021-07-29] MEDS: Aspirin 81 MG TAB.CHEW PO (08:29)
[2021-07-29] MEDS: Losartan Potassium 50 MG Tablet PO (08:29)
[2021-07-29] MEDS: Magnesium Chloride 64 MG Delay Rel.Tablet 128 MG PO ×2 (10:17→20:36)
--- NOTE | 2021-07-29 11:16 | PCM.PN.BLA ---
Progress Note Afebrile VSS-blood pressure has improved somewhat with the addition of Lopressor 25 mg p.o. twice daily to her drug regimen. The heart rate has also come down and today is in the 80s. Maintaining appropriate oxygen saturation on RA while awake Oral intake is good Discussed with nursing - She slept well last night and she kept the CPAP on for 7 and 1/2 hours without taking it off. Reviewed the PT/OT/ST notes Medication list reviewed. She is c/o abd pain today. Denies nausea, heartburn, vomiting, loss of appetite, CP, SOB. The pain in the left LE was somewhat better last night with the Gabapentin. No hangover today. She is alert and she tells me that she notices a difference in her thinking today! She is not c/o pain in the chest or the L leg today. She has had severe Achilles tendonitis in the past and a full thickness tear. This may be what is causing the pain in the left foot and ankle. OA/nerve irritation/increased activity with therapy? Alert, appropriate, pleasant, not perseverating with me today, focusing better with no light of ideas today. Lungs - CTA with excellent air exchange better color in her face today and she does not look so fatigued. HRRR with normal HR today. No pitting edema in the LE's no rashes and no skin breakdown. Some scabbing of the abd incision but, no erythema and no drainage. ABD is soft, very active BS's, no guarding with palpation, soft and ND. May be having some cramping from stool softeners......I told her walking would help. Impressions 1. Severe sleep apnea - historically non-compliant with CPAP. Did very well last night with sleeping and wearing the CPAP - will continue the Seroquel and the Gabapentin 2. Denies anxiety at the present time. I discussed with her why I discontinued the Xanax. I think the anxiety probably had a lot to do with anxiety/depression. She was on Cymbalta in the past. I am going to start an SSRI and trying discontinuing the Buspar in 1 week. She tends to take medications any time she does not feel well or has a discomfort. I think many of her psychosomatic complaints will go away with consistent good sleep hygiene and wearing the CPAP. she has significant cognitive dysfunction and I would like to avoid any sedating meds that would add to confusion. 3. HR and BP are better with the addition of the Lopressor to the drug regimen.......will continue the current dose and continue to monitor the BP and HR closely 4. Continue therapy. Since cognition is improving she may be able to go home from rehab IF she has 24/7 supervision for at least 2 weeks. She will need someone to monitor her medications. 5. Check a UA today.......the urine in the Flores tubing is cloudy Visit Charges Inpatient E&M: 39138 Subs Hosp L2
[2021-07-29] MEDS: Sertraline 50 MG Tablet PO (12:43)
[2021-07-29] MEDS: Gabapentin 100 MG Capsule 200 MG PO (20:35)
[2021-07-29] MEDS: QUEtiapine 25 MG Tablet PO (20:35)
[2021-07-29] MEDS: Polyethylene Glycol 3350 17 GM PACKET PO (20:40)
--- NOTE | 2021-07-29 23:37 | NURSING ---
2145 c-pap mask placed on at this time. 2330 urine collected for ua and sent to the lab. pt took cpap off while staff was in the room, staff assisted in placing back on
[2021-07-29 23:38] LABS: Mucous, Urine 0 SEEN /hpf (<or=2+); Squamous Epithelial Cells - UA 0 SEEN /hpf (5-10)
[2021-07-29 23:39] LABS: Color, Urine Yellow (Yellow); Glucose, Dipstick Normal (Normal); Ketone-Dipstick 5 mg/dl (Negative); Leukocyte Esterase-Dipstick 500 /ul (Negative); Nitrite-Dipstick Positive (Negative); Occult Blood-Urine 150 /ul (Negative); Protein-Dipstick 30 mg/dl (Negative); Specific Gravity, Urine 1.025 (1.002-1.030); Urine Bilirubin Dipstick Negative (Negative); Urine Clarity Sl. Cloudy (Clear); Urine Urobilinogen Normal (Normal)
[2021-07-29 23:53] LABS: Bacteria 3+ /hpf (None Seen); White Blood Cells 25-50 SEEN /hpf (0-5)
[2021-07-29 23:54] LABS: Red Blood Cells-Urine 0-5 SEEN /hpf (0-5); Yeast-Urine RARE /hpf (None Seen)
--- NOTE | 2021-07-30 01:09 | NURSING ---
Upon rounding, staff found CPAP removed from pt. CPAP reapplied and straps tightened.
--- NOTE | 2021-07-30 02:56 | NURSING ---
Reviewed and agree with FOREST RESOURCE SPECIALIST documentation and assessment charting.
[2021-07-30] MEDS: Arthritis Pain Compound 60 CLICK TUBE TOPICAL ×3 (05:48→21:02)
[2021-07-30] MEDS: Acetaminophen 500 MG Tablet 1000 MG PO ×3 (05:48→20:55)
[2021-07-30] MEDS: oxyCODONE 5 MG Tablet PO ×3 (06:01→18:15)
--- NOTE | 2021-07-30 06:03 | NURSING ---
pt had c-pap on for 7hour and 56 minutes
[2021-07-30 06:48] VITALS: BP 145/80; PULSE 84; RESP 16; TEMP 36.1; O2SAT 98
[2021-07-30 07:43] VITALS: BP 145/80; PULSE 84; RESP 16; TEMP 36.1; O2SAT 98
[2021-07-30] MEDS: Losartan Potassium 50 MG Tablet PO (08:09)
[2021-07-30] MEDS: Aspirin 81 MG TAB.CHEW PO (08:09)
[2021-07-30] MEDS: busPIRone 5 MG Tablet 10 MG PO ×2 (08:09→21:02)
[2021-07-30 08:10] VITALS: PULSE 84
[2021-07-30] MEDS: Magnesium Chloride 64 MG Delay Rel.Tablet 128 MG PO ×2 (08:10→20:56)
[2021-07-30] MEDS: Polyethylene Glycol 3350 17 GM PACKET PO ×2 (08:10→20:56)
[2021-07-30] MEDS: APIXABAN 2.5 MG TABLET PO ×2 (08:10→20:57)
[2021-07-30] MEDS: Metoprolol Tartrate 25 MG Tablet PO ×2 (08:10→20:56)
[2021-07-30] MEDS: Sertraline 50 MG Tablet PO (08:11)
[2021-07-30] MEDS: Cholecalciferol (Vit D3) 125 MCG CAPSULE (5,000 UNITS) PO (08:11)
[2021-07-30] MEDS: Menthol/Lanolin/Calamine/Znox 113 GM Tube 1 APPLIC TOPICAL ×2 (08:22→21:03)
--- NOTE | 2021-07-30 10:46 | PCM.PROGNOTE ---
Subjective Subjective Afebrile VSS - BP is coming down. If it is still not at goal by Tuesday will adjust the antihypertensives again. Maintaining appropriate oxygen saturation on RA Oral intake is good Discussed with nursing - no problems that need addressed. she wore the CPAP of 7 hours and 56 minutes last night. she is sleeping much better since we added the Gabapentin and Seroquel Reviewed the PT/OT/ST notes She was able to ambulate 20' today for the TUG with a FWW at [facility]. She has done 3 steps and 4 inches with 2 handrails at contact-guard assist. she did a modified curb step today and had LOB and the L knee buckled when stepping up. She is supervision/set up for grooming today and requires minimal assistance with bathing. She was able to dress her upper body at set up but required moderate assistance to don her lower body clothing. She is contact-guard assist for tub/shower transfer. She was administered the brief cognitive assessment tool by speech therapy and scored 43 out of a total of 50 points which is consistent with mild cognitive impairment. Sleeping and wearing the CPAP has dramatically improved her cognition since admission. Medication list reviewed. She only took 2 doses of oxycodone 5 mg today and this is an improvement. She is sleeping well with Gabapentin and Seroquel at night and she is no longer c/o L foot pain. A UA was obtained yesterday due to cloudy urine in the Flores tubing and it had 25-50 WBCs per high-power field and was positive for nitrite. There was 3+ bacteria and rare yeast. Urine culture is pending. She lists many antibiotics as allergies including sulfa drugs which cause her an upset stomach, erythromycin which upsets her stomach, Cipro (unknown reaction), nitrofurantoin, PCN's which cause swelling. She is going to get Duricef empirically until the results of the culture are back. She self caths at home for neurogenic bladder......I can not see her being able to do that yet but, cognitively she is doing better so will discuss with nursing pulling the Flores Tuesday and having her try. Alert, still easily distracted but, clearly much better in the past few days since she has consistently wearing the CPAP. HRRR abd - soft, ND , NT to palpation and no guarding, no nausea and no vomiting or flank pain. Not c/o suprapubic pain. L - CTA after a few deep breath. no calf pain No pretibial edema Impressions 1. S/P aortic dissection with surgery to repair 2. S/P ischemic strokes during or after the surgery 3. hx of remote TBI 4. neurogenic bladder 5. severe CLARKE 6. cognitive impairment - doing much better since she is wearing CPAP and getting good sleep. 7. Neuropathy L foot - pain improved with restarting the Gabapentin at bedtime. 8. UTI/cystitis Continue therapy - she is making good progress. Objective Data Objective Data Vital Signs: Vital Signs Temp Pulse Resp BP Pulse Ox 97 F L 84 16 145/80 H 98 07/30/21 07:43 07/30/21 08:10 07/30/21 07:43 07/30/21 07:43 07/30/21 07:43 Oxygen Flow Rate (L/min) 2 Oxygen Delivery Method CPAP Weight: 183 lb 10.321 oz Body Mass Index (BMI) 37.7 Intake & Output: Intake and Output for Last 24 Hours 07/28/21 07/29/21 07/30/21 23:59 23:59 23:59 Intake Total 2510 / 2510 880 / 880 410 / 410 Output Total 2275 / 2275 625 / 625 100 / 100 Balance 235 / 235 255 / 255 310 / 310 Lab / Micro Data Result Diagrams: 07/29/21 05:45 07/29/21 05:45 Labs: Laboratory Results - last 24 hr 07/29/21 23:30: Urine Color Yellow, Urine Clarity Sl. Cloudy, Urine pH 5.0, Ur Specific [place] 1.025, Urine Protein 30 H, Urine Glucose (UA) Normal, Urine Ketones 5 H, Urine Occult Blood 150 H, Urine Nitrite Positive H, Urine Bilirubin Negative, Urine Urobilinogen Normal, Ur Leukocyte Esterase 500 H, Urine RBC 0-5 SEEN, Urine WBC 25-50 SEEN, Ur Squamous Epith Cells 0 SEEN, Urine Bacteria 3+, Urine Mucus 0 SEEN, Urine Yeast RARE Micro: Microbiology 07/20/21 23:11 Urine Catheter - Flores Urine Culture - Final Lilia albicans Charges/Coding Visit Charges Inpatient E&M: 87954 Subs Hosp L2
[2021-07-30] MEDS: Ferrous Sulfate 325 MG Tablet PO (12:08)
[2021-07-30] MEDS: Ascorbic Acid 500 MG Tablet 1000 MG PO (12:08)
[2021-07-30 15:00] VITALS: BP 140/82; PULSE 83; RESP 16; TEMP 36.2; O2SAT 96
[2021-07-30 16:35] VITALS: BMI 37.7
--- NOTE | 2021-07-30 18:09 | CASEMGMT ---
Addendum entered by Sabina Lee 07/31/21 15:06: Son provided SW with completed [employer] macy. Faxed to [facility]. Original Note: Social Work IDT met with patient, mother and son via conference call for Team meeting. Discussed patient's progress in PT/OT/ST and nursing. Pt making progress. IDT and pt would like pt to return home, but still realistic with needing supervision with IADLs and assistance with ADLs. [facility] can accept pt. Reiterated son needs to provide SW with completed [employer] application, otherwise, pt would need to pay privately, if insurance denies SNF. Son expressed understanding. SW to continue to follow. Sabina Lee ,CARYN KRUSEW
[2021-07-30 19:00] VITALS: BP 154/66; PULSE 77; RESP 16; TEMP 36.7; O2SAT 98
[2021-07-30 20:56] VITALS: BP 154/66; PULSE 77
[2021-07-30] MEDS: Senna/Docusate Sodium 1 Tablet 2 TABLET PO (20:56)
[2021-07-30] MEDS: Cefadroxil 500 MG CAPSULE 1000 MG PO (21:02)
[2021-07-30] MEDS: Gabapentin 100 MG Capsule 200 MG PO (21:03)
[2021-07-30] MEDS: QUEtiapine 25 MG Tablet PO (21:03)
[2021-07-31] MEDS: Acetaminophen 500 MG Tablet 1000 MG PO ×3 (04:31→22:56)
[2021-07-31] MEDS: Arthritis Pain Compound 60 CLICK TUBE TOPICAL ×3 (04:32→22:53)
[2021-07-31] MEDS: oxyCODONE 5 MG Tablet PO ×3 (05:56→18:19)
[2021-07-31 07:00] VITALS: BP 163/81; PULSE 86; RESP 16; TEMP 36.5; O2SAT 96
[2021-07-31] MEDS: Cefadroxil 500 MG CAPSULE 1000 MG PO ×2 (07:59→22:55)
[2021-07-31] MEDS: Losartan Potassium 50 MG Tablet PO (07:59)
[2021-07-31] MEDS: APIXABAN 2.5 MG TABLET PO ×2 (07:59→22:55)
[2021-07-31] MEDS: Cholecalciferol (Vit D3) 125 MCG CAPSULE (5,000 UNITS) PO (07:59)
[2021-07-31] MEDS: busPIRone 5 MG Tablet 10 MG PO ×2 (07:59→22:54)
[2021-07-31 08:00] VITALS: BP 163/81; PULSE 86
[2021-07-31] MEDS: Metoprolol Tartrate 25 MG Tablet PO ×2 (08:00→22:57)
[2021-07-31] MEDS: Sertraline 50 MG Tablet PO (08:00)
[2021-07-31] MEDS: Senna/Docusate Sodium 1 Tablet 2 TABLET PO ×2 (08:00→22:57)
[2021-07-31] MEDS: Aspirin 81 MG TAB.CHEW PO (08:00)
[2021-07-31] MEDS: Magnesium Chloride 64 MG Delay Rel.Tablet 128 MG PO ×2 (08:00→22:56)
[2021-07-31] MEDS: Menthol/Lanolin/Calamine/Znox 113 GM Tube 1 APPLIC TOPICAL ×2 (08:02→22:54)
[2021-07-31 11:00] VITALS: BP 157/73
[2021-07-31] MEDS: Ascorbic Acid 500 MG Tablet 1000 MG PO (12:09)
[2021-07-31] MEDS: Ferrous Sulfate 325 MG Tablet PO (12:09)
[2021-07-31 14:54] VITALS: BP 156/77
[2021-07-31 17:00] VITALS: BMI 37.7
[2021-07-31 19:00] VITALS: BP 150/69; PULSE 83; RESP 14; TEMP 36.7; O2SAT 98
[2021-07-31] MEDS: Gabapentin 100 MG Capsule 200 MG PO (22:52)
[2021-07-31] MEDS: QUEtiapine 25 MG Tablet PO (22:53)
[2021-07-31 22:57] VITALS: BP 180/77; PULSE 83
[2021-07-31] MEDS: Polyethylene Glycol 3350 17 GM PACKET PO (23:12)
[2021-08-01] VITALS (8 sets, daily range): BP systolic 146–167; BP diastolic 70–90; PULSE 78–95; RESP 16–18; TEMP 36.1–36.6; O2SAT 95–97; BMI 37.7
[2021-08-01] MEDS: oxyCODONE 5 MG Tablet PO ×4 (00:23→23:43)
[2021-08-01] MEDS: Acetaminophen 500 MG Tablet 1000 MG PO ×3 (06:33→21:18)
[2021-08-01] MEDS: Arthritis Pain Compound 60 CLICK TUBE TOPICAL ×3 (06:33→21:16)
--- NOTE | 2021-08-01 07:34 | NURSING ---
0700 am; pt wore cpap from midnight to 6 am. she did wake up at 3 am and took it off. pt was assisted with putting cpap back on. pt wore cpap a total of 5 hours and 45 min.
[2021-08-01] MEDS: Sertraline 50 MG Tablet PO (08:50)
[2021-08-01] MEDS: Cefadroxil 500 MG CAPSULE 1000 MG PO ×2 (08:50→21:17)
[2021-08-01] MEDS: Magnesium Chloride 64 MG Delay Rel.Tablet 128 MG PO ×2 (08:50→21:17)
[2021-08-01] MEDS: Metoprolol Tartrate 25 MG Tablet PO ×2 (08:50→21:17)
[2021-08-01] MEDS: APIXABAN 2.5 MG TABLET PO ×2 (08:51→21:17)
[2021-08-01] MEDS: Cholecalciferol (Vit D3) 125 MCG CAPSULE (5,000 UNITS) PO (08:52)
[2021-08-01] MEDS: busPIRone 5 MG Tablet 10 MG PO ×2 (08:53→21:17)
[2021-08-01] MEDS: Aspirin 81 MG TAB.CHEW PO (08:53)
[2021-08-01] MEDS: Losartan Potassium 50 MG Tablet PO ×2 (08:54→17:11)
[2021-08-01] MEDS: Menthol/Lanolin/Calamine/Znox 113 GM Tube 1 APPLIC TOPICAL ×2 (08:55→21:20)
[2021-08-01] MEDS: Mag Hydrox/Al Hydrox/Simeth 30 ML UDC PO (08:57)
[2021-08-01] MEDS: Ascorbic Acid 500 MG Tablet 1000 MG PO (12:31)
[2021-08-01] MEDS: Ferrous Sulfate 325 MG Tablet PO (12:32)
[2021-08-01] MEDS: QUEtiapine 25 MG Tablet PO (21:16)
[2021-08-01] MEDS: Gabapentin 100 MG Capsule 200 MG PO (21:16)
[2021-08-02] VITALS (8 sets, daily range): BP systolic 133–195; BP diastolic 68–104; PULSE 70–92; RESP 16–18; TEMP 36.6–36.8; O2SAT 96–98; BMI 37.7
--- NOTE | 2021-08-02 02:18 | NURSING ---
2230 Pt states not ready for CPAP just yet. Pt resting in bed, watching t.v. 2300 Pt still not ready for CPAP. 2345 SN notes Pt sleeping in bed. SN woke Pt up to put CPAP on at this time. Pt continues to wear CPAP and appears to be resting comfortably. Will continue to monitor.
--- NOTE | 2021-08-02 02:39 | NURSING ---
REVIEWED AND AGREE WITH UX INTERACTION DESIGNER'S FUNCTIONAL ASSESSMENT AND HANDOFF CHARTING.
--- NOTE | 2021-08-02 05:56 | NURSING ---
Pt wore CPAP all night. Off at 0600.
[2021-08-02] MEDS: Acetaminophen 500 MG Tablet 1000 MG PO ×3 (06:10→21:21)
[2021-08-02] MEDS: Arthritis Pain Compound 60 CLICK TUBE TOPICAL ×3 (06:10→21:20)
[2021-08-02] MEDS: oxyCODONE 5 MG Tablet PO ×3 (06:13→19:05)
[2021-08-02] MEDS: Menthol/Lanolin/Calamine/Znox 113 GM Tube 1 APPLIC TOPICAL ×2 (08:11→21:22)
[2021-08-02] MEDS: Aspirin 81 MG TAB.CHEW PO (08:15)
[2021-08-02] MEDS: Metoprolol Tartrate 25 MG Tablet PO ×2 (08:15→21:30)
[2021-08-02] MEDS: Cholecalciferol (Vit D3) 125 MCG CAPSULE (5,000 UNITS) PO (08:15)
[2021-08-02] MEDS: Sertraline 50 MG Tablet PO (08:15)
[2021-08-02] MEDS: Cefadroxil 500 MG CAPSULE 1000 MG PO ×2 (08:15→21:21)
[2021-08-02] MEDS: Magnesium Chloride 64 MG Delay Rel.Tablet 128 MG PO ×2 (08:15→21:21)
[2021-08-02] MEDS: Losartan Potassium 100 MG Tablet PO (08:16)
[2021-08-02] MEDS: busPIRone 5 MG Tablet 10 MG PO ×2 (08:16→21:21)
[2021-08-02] MEDS: APIXABAN 2.5 MG TABLET PO ×2 (08:16→21:21)
[2021-08-02] MEDS: Ascorbic Acid 500 MG Tablet 1000 MG PO (13:02)
[2021-08-02] MEDS: Ferrous Sulfate 325 MG Tablet PO (13:02)
[2021-08-02] MEDS: Mag Hydrox/Al Hydrox/Simeth 30 ML UDC PO (17:30)
[2021-08-02] MEDS: Gabapentin 100 MG Capsule 200 MG PO (21:20)
[2021-08-02] MEDS: QUEtiapine 25 MG Tablet PO (21:20)
[2021-08-03] VITALS (7 sets, daily range): BP systolic 145–151; BP diastolic 51–73; PULSE 76–79; RESP 16–18; TEMP 36.3–36.5; O2SAT 95–99; BMI 37.7
[2021-08-03] MEDS: Arthritis Pain Compound 60 CLICK TUBE TOPICAL ×3 (05:43→20:57)
[2021-08-03] MEDS: Acetaminophen 500 MG Tablet 1000 MG PO ×3 (05:43→20:55)
[2021-08-03] MEDS: oxyCODONE 5 MG Tablet PO ×3 (05:45→18:53)
--- NOTE | 2021-08-03 05:47 | NURSING ---
CPAP on at 2300, Pt wore mask all night. Pt meds around 0545, Pt put mask back on and plans to go back to sleep until about 0630 when OT in to work with Pt.
[2021-08-03] MEDS: APIXABAN 2.5 MG TABLET PO ×2 (08:09→20:56)
[2021-08-03] MEDS: Magnesium Chloride 64 MG Delay Rel.Tablet 128 MG PO ×2 (08:09→20:56)
[2021-08-03] MEDS: Cholecalciferol (Vit D3) 125 MCG CAPSULE (5,000 UNITS) PO (08:09)
[2021-08-03] MEDS: Sertraline 50 MG Tablet PO (08:09)
[2021-08-03] MEDS: busPIRone 5 MG Tablet 10 MG PO (08:09)
[2021-08-03] MEDS: Metoprolol Tartrate 25 MG Tablet PO ×2 (08:09→20:56)
[2021-08-03] MEDS: Aspirin 81 MG TAB.CHEW PO (08:10)
[2021-08-03] MEDS: Cefadroxil 500 MG CAPSULE 1000 MG PO (08:10)
[2021-08-03] MEDS: Losartan Potassium 100 MG Tablet PO (08:12)
[2021-08-03] MEDS: Menthol/Lanolin/Calamine/Znox 113 GM Tube 1 APPLIC TOPICAL ×2 (08:15→21:00)
--- NOTE | 2021-08-03 11:34 | PCM.PROGNOTE ---
Subjective Subjective Day #5 cefadroxil Afebrile VSS-the diastolic is now consistently within goal. The systolic blood pressure is in the 140s. Heart rate is within normal limits. Maintaining appropriate oxygen saturation on RA Oral intake is good Weight is erratic but, it appears that she has lost about 10lbs since admission. Discussed with nursing - no problems that need addressed Reviewed the PT/OT/ST notes - She ambulated off the unit today with FWW at [facility] and went 41 ft up a ramp prior to asking to sit due to fatigue. She c/o left wrist pain. PT tried QC and she was not steady enough for this. She did better with a HW but had a LOB. She is min assist for bathing and UB dressing but, still mod A with LB dressing. she is independent with eating and sup/set up with grooming. CGA for tub/shower transfer. Medication list reviewed. The urine culture results are not finalized yet and it has been 5 days since the urine was collected....will need to call the lab. Latasha has been wearing the CPAP at night consistently. She is alert and progressing in therapy. She is sleeping well with gabapentin and Seroquel at bedtime. Denies anxiety. Tolerating the sertraline with no nausea/vomiting/abdominal pain/cramping. Objective Data Objective Data Vital Signs: Vital Signs Temp Pulse Resp BP Pulse Ox 97.4 F L 79 18 145/51 H 99 08/03/21 08:29 08/03/21 08:29 08/03/21 08:29 08/03/21 08:29 08/03/21 08:29 Oxygen Flow Rate (L/min) 2 Oxygen Delivery Method Room Air Weight: 179 lb 7.3 oz Body Mass Index (BMI) 37.7 Intake & Output: Intake and Output for Last 24 Hours 08/01/21 08/02/21 08/03/21 23:59 23:59 23:59 Intake Total 2070 / 2070 2200 / 2200 560 / 560 Output Total 1725 / 1725 1150 / 1150 250 / 250 Balance 345 / 345 1050 / 1050 310 / 310 Lab / Micro Data Result Diagrams: 07/29/21 05:45 07/29/21 05:45 Micro: Microbiology 07/29/21 23:30 Urine Catheter - Flores Urine Culture - Preliminary Presumptive E. coli 07/20/21 23:11 Urine Catheter - Flores Urine Culture - Final Lilia albicans Physical Exam Const alert, oriented x3 and no apparent distress Resp clear to auscultation bilaterally Cardio regular rate and regular rhythm GI normal to inspection, nondistended, normoactive bowel sounds and soft to palpation Extremity no calf tenderness Extremity Narrative: she has not mentioned the pain in the left foot to me for the past few days. She continues to c/o pain in the left wrist and forearm. Skin General Skin Exam: no breakdown Rashes: no rashes Assessment & Plan Assessment/Plan (1) History of aortic dissection: (2) Hx of repair of dissecting thoracic aortic aneurysm, [place] type A: (3) Cognitive dysfunction: (4) CLARKE (obstructive sleep apnea): (5) Radial artery thrombosis, left: (6) Anxiety and depression: PLAN: Overall she is doing much better since she has been compliant with wearing the CPAP. Xanax has been discontinued and the Buspar is being tapered. She is tolerating the Sertraline with no adverse side effects. She has a CPAP unit at home and will be given the current mask when she is discharged from rehab. Will need to follow up with Dr. Vazquez at [facility]. Will decrease the Buspar to once a day in the AM. Continue the current dose of Sertraline. Destination at [facility]. She is progressing in therapy and is getting stronger but still not ready for DC......Will continue to work on strengthening and cognition......she is doing better with speech. Lab was called for the results of the urine culture.....continue the Cefadroxil for now.......she c/o burning around the catheter over the weekend and I have a feeling the Cefadroxil may not be helping. Charges/Coding Visit Charges Inpatient E&M: 03985 Subs Hosp L2
[2021-08-03] MEDS: Ascorbic Acid 500 MG Tablet 1000 MG PO (12:04)
[2021-08-03] MEDS: Ferrous Sulfate 325 MG Tablet PO (12:04)
[2021-08-03] MEDS: levoFLOXacin 250 MG Tablet PO (17:41)
[2021-08-03] MEDS: Gabapentin 100 MG Capsule 200 MG PO (20:55)
[2021-08-03] MEDS: Senna/Docusate Sodium 1 Tablet 2 TABLET PO (20:55)
[2021-08-03] MEDS: QUEtiapine 25 MG Tablet PO (20:56)
[2021-08-03] MEDS: Polyethylene Glycol 3350 17 GM PACKET PO (20:57)
[2021-08-03] MEDS: Mag Hydrox/Al Hydrox/Simeth 30 ML UDC PO (21:11)
[2021-08-03] MEDS: Calcium Carbonate 500 MG Tablet PO (21:11)
--- NOTE | 2021-08-03 21:20 | NURSING ---
Upon entrance to room patient is talking on cell phone with a family member, laughing while watching WWE wrestling on TV. Patient talks on phone for approximately 45 seconds while continuing to laugh and talk with family member. When patient hangs up phone she begins to moan and clutch her abdomen, stating that she is in extreme pain and nobody is helping her. This RN discusses options with patient regarding pain control and the use of PRN medications and when they are due. As this RN leaves the room the patient calls another family member on the phone and begins speak and laugh audibly which can be heard from the nurses station. Will continue to monitor patient and medicate as needed according to orders for patient comfort.
[2021-08-04] VITALS (8 sets, daily range): BP systolic 127–181; BP diastolic 56–90; PULSE 73–88; RESP 16; TEMP 36.1–36.4; O2SAT 94–95; BMI 37.7
[2021-08-04] MEDS: oxyCODONE 5 MG Tablet PO ×3 (06:01→19:06)
[2021-08-04] MEDS: Acetaminophen 500 MG Tablet 1000 MG PO ×3 (06:01→22:13)
[2021-08-04] MEDS: levoFLOXacin 250 MG Tablet PO (06:01)
[2021-08-04] MEDS: Arthritis Pain Compound 60 CLICK TUBE TOPICAL ×3 (06:04→22:15)
[2021-08-04] MEDS: Aspirin 81 MG TAB.CHEW PO (08:00)
[2021-08-04] MEDS: busPIRone 5 MG Tablet 10 MG PO (08:01)
[2021-08-04] MEDS: Metoprolol Tartrate 25 MG Tablet PO ×2 (08:01→22:22)
[2021-08-04] MEDS: Cholecalciferol (Vit D3) 125 MCG CAPSULE (5,000 UNITS) PO (08:01)
[2021-08-04] MEDS: Polyethylene Glycol 3350 17 GM PACKET PO ×2 (08:03→22:13)
[2021-08-04] MEDS: Losartan Potassium 100 MG Tablet PO (08:03)
[2021-08-04] MEDS: APIXABAN 2.5 MG TABLET PO ×2 (08:03→22:13)
[2021-08-04] MEDS: Magnesium Chloride 64 MG Delay Rel.Tablet 128 MG PO ×2 (08:09→22:14)
[2021-08-04] MEDS: Sertraline 50 MG Tablet PO (08:09)
[2021-08-04] MEDS: Calcium Carbonate 500 MG Tablet PO (08:10)
[2021-08-04] MEDS: Menthol/Lanolin/Calamine/Znox 113 GM Tube 1 APPLIC TOPICAL ×2 (08:13→22:30)
--- NOTE | 2021-08-04 11:04 | PCM.PROGNOTE ---
Subjective Subjective Dose #2 of 7 Levaquin for UTI associated for Flores catheter for neurogenic bladder. The bacteria is an E. Coli ESBL. Afebrile VSS-systolic blood pressure is still mildly elevated but the diastolics are all within normal limits now. Heart rate is within normal limits. Maintaining appropriate oxygen saturation on RA Oral intake is good Weight is stable. Discussed with nursing - no problems that need addressed. I reviewed the nurses notes from last night. She claims she did not sleep well but, in fact the nurse documented she slept well. She C/O heart burn but, she refused the Maalox and demanded TUMS for 10/10 pain but, prior to the TUMS coming up from pharmacy she was on the phone laughing and in no distress. Reviewed the PT/OT/ST notes - Cognition is improving. Wearing the CPAP is brewer to a lot of improvement in the cognitive function. She is now able to stay awake during the day and I can hold a conversation with her without her falling asleep while talking with me. Medication list reviewed. No adverse reactions to the Levaquin - no rashes, no pruritus. Gema is complaining about the Flores and insists she can straight cath herself.......I do not believe she can but, will give her that opportunity. She has a bizarre affect. She is laughing and talking on the phone one minute and then c/o 10/10 pain the next and then laughing again. She has an exaggerated response to any perceived discomfort. She continues to perseverate. Memory is short lived although her attention to task she is working on has improved somewhat. this AM she had a large BM and this afternoon she demanded MOM because she had not moved her bowels. She has not complained to me about chest pain in several days. She is also no longer c/o pain in the left foot. She is c/o fatigue. She di not c/o Left wrist pain today and she was able to do 15 biceps curls with noth arms today and did not c/o pain in either arm. She is perseverating today about the Flores and pain in the perineal area........she tells me it feels like sandpaper. Objective Data Objective Data Vital Signs: Vital Signs Temp Pulse Resp BP Pulse Ox 97.5 F L 87 16 156/78 H 94 04/12/22 07:00 08/04/21 08:01 08/04/21 07:00 08/04/21 07:00 08/04/21 07:00 Oxygen Flow Rate (L/min) 2 Oxygen Delivery Method Room Air Weight: 180 lb 15.992 oz Body Mass Index (BMI) 37.7 Intake & Output: Intake and Output for Last 24 Hours 08/02/21 08/03/21 08/04/21 23:59 23:59 23:59 Intake Total 2200 / 2200 1440 / 1790 470 / 470 Output Total 1150 / 1150 850 / 1100 450 / 450 Balance 1050 / 1050 590 / 690 20 / Lab / Micro Data Result Diagrams: 07/29/21 05:45 07/29/21 05:45 Micro: Microbiology 07/29/21 23:30 Urine Catheter - Flores Urine Culture - Final Escherichia coli 07/20/21 23:11 Urine Catheter - Flores Urine Culture - Final Lilia albicans Physical Exam Const alert and no apparent distress General Appearance: cooperative Eyes PERRL, EOMs intact bilaterally, conjunctivae normal and no scleral icterus Resp clear to auscultation bilaterally Cardio regular rate, regular rhythm and no gallops GI normal to inspection, nondistended, normoactive bowel sounds, soft to palpation and non-tender GI Narrative: She appears in no distress. She perseverated on heartburn with the ST today even after I discussed with her that TUMS contain calcium which lowers the LES pressure and increases acid production in the stomach and ultimately makes the heartburn worse. this has been explained to her more than once this admission. she can not retain information. Narrative: No irritation around the vaginal introitus, no vaginal DC. No irritation around the Flores and no DC around the Flores catheter. Extremity no calf tenderness and no pedal edema Extremity Narrative: The left hand/wrist and forearm today are warm with intact sensation. She did not c/o pain in the LUE today. Skin General Skin Exam: no breakdown Rashes: no rashes Psych cooperative, denies hallucinations, denies homicidal ideation and denies suicidal ideation Appearance: grossly normal Activity / Motor Behavior: appropriate eye contact and disorganized Mood & Affect: expansive affect; Negative for anxious, sad or tearful Thought Process: disorganized and flight of ideas Attention / Concentration: attention grossly impaired and concentration grossly impaired Memory / Cognition: memory grossly impaired and cognition impaired Insight: poor Judgement: poor Assessment & Plan Assessment/Plan (1) History of aortic dissection: (2) Hx of repair of dissecting thoracic aortic aneurysm, [place] type A: (3) Cognitive dysfunction: (4) CLARKE (obstructive sleep apnea): (5) New cerebellar infarct: (6) GERD (gastroesophageal reflux disease): PLAN: 1. Start Protonix 20 mg p.o. twice daily. Discontinue Tums. Continue Maalox as needed. 2. Continue Levaquin 3. Discontinue the Flores catheter today and institute straight cath every 8 hours. Will allow her to attempt this by herself with direct nursing supervision. 4. Continue CPAP at night. 5. Continue therapy - At this time I do not feel she would be safe at home. She is impulsive, has poor safety awareness, impaired cognition, likely needs to have someone straight cath her regularly.........she wants to take a pill for every complaint she has even though she is no apparent distress and she is laughing at the time she is complaining. She also thinks she can do more than she actually can and is at risk for falls/injuries. She would need close 24/7 supervision if she would go home......she would need this indefinitely and I do not think her family will be able to provide this type of supervision. I discussed this with the SW and the family has decided to have her go to [facility] for additional therapy. DC date is 08/10. The son was given a Medicaid application to complete last week. Charges/Coding Visit Charges Inpatient E&M: 59563 Subs Hosp L2
[2021-08-04] MEDS: Ascorbic Acid 500 MG Tablet 1000 MG PO (11:05)
[2021-08-04] MEDS: Ferrous Sulfate 325 MG Tablet PO (11:05)
--- NOTE | 2021-08-04 14:04 | CASEMGMT ---
Social Work Insurance approved with anticipated DC 08/10. Spoke with IDT and agreeable to DC 08/10. Contacted son whom is also agreeable. Updated [facility] and they can still accept. Will complete PASRR and schedule transport. [facility] to submit for precert 08/10, if denied, pt will admit part B therapies, MCDP. Emailed [facility] to obtain MCDP# and notify of DC disposition. Will Team . SW to continue to follow to finalize DC. Sabina Lee, DRUG REGULATORY AFFAIRS SPECIALIST REGULATORY AFFAIRS SPEC
[2021-08-04] MEDS: Mag Hydrox/Al Hydrox/Simeth 30 ML UDC PO (16:06)
[2021-08-04] MEDS: Gabapentin 100 MG Capsule 200 MG PO (22:13)
[2021-08-04] MEDS: Pantoprazole Sodium 20 MG Tablet PO (22:13)
[2021-08-04] MEDS: QUEtiapine 25 MG Tablet PO (22:13)
--- NOTE | 2021-08-05 01:26 | NURSING ---
2215 pt bp noted to be elevated this hs and retaken at this time and was found to be 181/80 and ap was 88. lopressor given and will recheck bp, rn aware. 2355 pt found sleeping after not wanting c-pap put on earlier d/t she wanted to drink some fluids. bp retaken and was 127/56 and pulse was 80. c-pap applied at this time and will monitor through out the night for compliance
--- NOTE | 2021-08-05 02:28 | NURSING ---
Reviewed and agree with SPRING SETTER documentation and assessment charting.
[2021-08-05] MEDS: Arthritis Pain Compound 60 CLICK TUBE TOPICAL ×3 (06:22→21:25)
[2021-08-05] MEDS: levoFLOXacin 250 MG Tablet PO (06:23)
[2021-08-05] MEDS: Acetaminophen 500 MG Tablet 1000 MG PO ×3 (06:23→21:24)
--- NOTE | 2021-08-05 06:28 | NURSING ---
pt used c-pap for 6 hours and 27 minutes and kept her mask on all of hs during rounding and intermittent checks
[2021-08-05 07:00] VITALS: BP 117/43; PULSE 78; RESP 16; TEMP 36.2; O2SAT 96
[2021-08-05 07:24] LABS: Absolute Lymphocyte Count 1.23 X10^3/uL (0.83-4.51); Absolute Neutrophil Count 1.5 X10^3/uL (2.0-7.7); Basophil# 0.04 X10^3/uL; Basophil% 1.2 % (0-1); Eosinophil# 0.15 X10^3/uL; Eosinophils% 4.4 % (0-5); Hematocrit 31.9 % (37-47); Hemoglobin 10.1 g/dL (12.0-15.0); Lymphocyte # 1.23 X10^3/ul (0.83-4.51); Lymphocyte % 35.9 % (19-41); Mean Corp Hgb Conc 31.7 g/dL (32-36); Mean Corpuscular Hgb 28.9 pg (27.0-32.0); Mean Corpuscular Volume 91.4 fL (81-99); Mean Platelet Vol. 9.5 fl (6.2-12.0); Monocyte# 0.46 X10^3/uL; Monocyte% 13.4 % (0-10); NRBC Flagged by Analyzer 0 % (0-5); Neutrophil # 1.54 X10^3/uL (2.7-7.7); Neutrophil % 44.8 % (47-70); Platelet Count 280 K/mm3 (150-450); RBC Distribution Width CV 16.3 % (11.6-14.6); RBC Distribution Width SD 54.2 fl (35.1-43.9); Red Blood Count 3.49 M/mm3 (4.2-5.4); White Blood Count 3.4 K/mm3 (4.4-11.0)
[2021-08-05 07:39] LABS: Anion Gap 4 (5-15); BUN 11 mg/dL (7-18); BUN/Creat Ratio 16.3 RATIO (10-20); Calcium,Total 8.9 mg/dL (8.5-10.1); Chloride 109 mmol/L (98-107); Creatinine, Serum 0.67 mg/dL (0.55-1.02); EST Glomerular Filtration Rate 96 mL/min (>60); Est Glom Filt Rate - Afr Amer 117 mL/min (>60); Estimated Creatinine Clearance 71.59 ml/min; Glucose 89 mg/dL (74-106); Potassium 4.1 mmol/L (3.5-5.1); Sodium Level 140 mmol/L (136-145)
[2021-08-05] MEDS: Aspirin 81 MG TAB.CHEW PO (08:00)
[2021-08-05] MEDS: busPIRone 5 MG Tablet 10 MG PO (08:00)
[2021-08-05] MEDS: Polyethylene Glycol 3350 17 GM PACKET PO ×2 (08:00→21:25)
[2021-08-05] MEDS: Losartan Potassium 100 MG Tablet PO (08:00)
[2021-08-05 08:01] VITALS: PULSE 78
[2021-08-05] MEDS: Cholecalciferol (Vit D3) 125 MCG CAPSULE (5,000 UNITS) PO (08:01)
[2021-08-05] MEDS: Metoprolol Tartrate 25 MG Tablet PO ×2 (08:01→21:30)
[2021-08-05] MEDS: APIXABAN 2.5 MG TABLET PO ×2 (08:01→21:26)
[2021-08-05] MEDS: Pantoprazole Sodium 20 MG Tablet PO ×2 (08:01→21:25)
[2021-08-05] MEDS: Magnesium Chloride 64 MG Delay Rel.Tablet 128 MG PO ×2 (08:01→21:24)
[2021-08-05] MEDS: Sertraline 50 MG Tablet PO (08:02)
[2021-08-05] MEDS: Menthol/Lanolin/Calamine/Znox 113 GM Tube 1 APPLIC TOPICAL (08:07)
[2021-08-05] MEDS: oxyCODONE 5 MG Tablet PO ×2 (10:20→18:19)
[2021-08-05 11:00] VITALS: BP 166/82; PULSE 86
[2021-08-05] MEDS: Ferrous Sulfate 325 MG Tablet PO (12:42)
[2021-08-05] MEDS: Ascorbic Acid 500 MG Tablet 1000 MG PO (12:42)
[2021-08-05 14:26] VITALS: BMI 37.7
[2021-08-05 15:00] VITALS: BP 160/76; PULSE 76
[2021-08-05] MEDS: Gabapentin 100 MG Capsule 200 MG PO (21:24)
[2021-08-05] MEDS: QUEtiapine 25 MG Tablet PO (21:25)
[2021-08-05 21:30] VITALS: BP 145/73; BP 180/80; PULSE 80; PULSE 83; RESP 16; TEMP 36.7; O2SAT 97; BMI 37.7
[2021-08-05] MEDS: Mag Hydrox/Al Hydrox/Simeth 30 ML UDC PO (22:35)
[2021-08-05 23:30] VITALS: BP 130/59; PULSE 72
[2021-08-06] VITALS (8 sets, daily range): BP systolic 145–185; BP diastolic 57–93; PULSE 71–97; RESP 16–18; TEMP 36.4–36.6; O2SAT 97–99; BMI 37.7
--- NOTE | 2021-08-06 00:03 | NURSING ---
2130 pt bp checked for lopressor and was found to bed 180/80 while sitting up in the recliner on her rt arm. hs medications were given and will recheck bp later. pt denied any sx, and rn aware 2330 pt resting in the bed and bp rechecked and was 130/59 on her right arm and semi-fowlers position. c-pap applied at this time
[2021-08-06] MEDS: Acetaminophen 500 MG Tablet 1000 MG PO ×3 (06:19→22:18)
[2021-08-06] MEDS: levoFLOXacin 250 MG Tablet PO (06:19)
[2021-08-06] MEDS: Arthritis Pain Compound 60 CLICK TUBE TOPICAL ×3 (06:19→22:18)
--- NOTE | 2021-08-06 07:27 | NURSING ---
pt had her c-pap on for 6 hour and 3 minutes this hs
[2021-08-06] MEDS: Cholecalciferol (Vit D3) 125 MCG CAPSULE (5,000 UNITS) PO (08:27)
[2021-08-06] MEDS: busPIRone 5 MG Tablet 10 MG PO (08:27)
[2021-08-06] MEDS: Sertraline 50 MG Tablet PO (08:27)
[2021-08-06] MEDS: Aspirin 81 MG TAB.CHEW PO (08:27)
[2021-08-06] MEDS: Polyethylene Glycol 3350 17 GM PACKET PO ×2 (08:28→22:19)
[2021-08-06] MEDS: Metoprolol Tartrate 25 MG Tablet PO ×2 (08:28→22:29)
[2021-08-06] MEDS: APIXABAN 2.5 MG TABLET PO ×2 (08:28→22:20)
[2021-08-06] MEDS: Losartan Potassium 100 MG Tablet PO (08:28)
[2021-08-06] MEDS: Magnesium Chloride 64 MG Delay Rel.Tablet 128 MG PO ×2 (08:28→22:19)
[2021-08-06] MEDS: Pantoprazole Sodium 20 MG Tablet PO ×2 (08:28→22:18)
--- NOTE | 2021-08-06 10:10 | CASEMGMT ---
Social Work Received Medicaid pending number - #[id number] Provided to [facility]. CARYN SebastianW
[2021-08-06] MEDS: Ferrous Sulfate 325 MG Tablet PO (12:12)
[2021-08-06] MEDS: Ascorbic Acid 500 MG Tablet 1000 MG PO (12:12)
[2021-08-06] MEDS: oxyCODONE 5 MG Tablet PO ×2 (12:15→19:53)
--- NOTE | 2021-08-06 12:15 | PN_ITS ---
Subjective Subjective Latasha was seen on TEAM rounds today. Her mother was present in the room and her son Osvaldo participated by phone. Her mother stayed after rounds for family training. Afebrile VSS Maintaining appropriate oxygen saturation on RA Oral intake is good Weight is stable Discussed with nursing - no problems that need addressed Reviewed the PT/OT/ST notes - She is doing much better cognitively and I suspect this is largely due to wearing the CPAP and getting effective sleep. Medication list reviewed. All lab from the was reviewed. White blood cell count is low at 4.3 and the hemoglobin is 10.1 which is stable. It was 10.8 on 29 July but, 10.1 prior to that. Sodium and potassium were within normal limits. BUN is 11 and the 12 is 0.67. Her only complaint is occasional pain in the L upper arm. It is not burning or lighting like and I suspect it is musculoskeletal. No CP, SOB, Lightheadedness, N/V. She complains of gas and this may be due to the greasy food brought in to her or to the CPAP........but the CPAP should not be causing the gas in the late morning and afternoon. Objective Data Objective Data Vital Signs: Vital Signs Temp Pulse Resp BP Pulse Ox 97.8 F 78 16 150/80 H 97 08/06/21 07:00 08/06/21 10:32 08/06/21 10:32 08/06/21 10:32 08/06/21 07:00 Oxygen Flow Rate (L/min) 2 Oxygen Delivery Method Room Air Weight: 182 lb 5.156 oz Body Mass Index (BMI) 37.7 Intake & Output: Intake and Output for Last 24 Hours 08/04/21 08/05/21 08/06/21 23:59 23:59 23:59 Intake Total 1320 / 1320 1335 / 1335 165 / 165 Output Total 900 / 900 900 / 900 350 / 350 Balance 420 / 420 435 / 435 -185 / -185 Lab / Micro Data Result Diagrams: 08/05/21 07:15 08/09/21 06:39 Micro: Microbiology 07/29/21 23:30 Urine Catheter - Flores Urine Culture - Final Escherichia coli 07/20/21 23:11 Urine Catheter - Flores Urine Culture - Final Lilia albicans Physical Exam Const alert and no apparent distress Constitutional Narrative: Sitting in the recliner at the bedside. General Appearance: cooperative, comfortable, well kempt and well developed; Negative for in distress Eyes conjunctivae normal and no scleral icterus Resp clear to auscultation bilaterally Effort and Inspection: able to speak in complete sentences Cardio regular rate, regular rhythm and no gallops GI normal to inspection, nondistended, normoactive bowel sounds, soft to palpation and non-tender Extremity no calf tenderness Skin General Skin Exam: no breakdown Rashes: no rashes Wound Narrative: the sternal incision and the incision in the upper abd are healing and there is no swelling, erythema, dehiscence or Purulent DC. Psych cooperative and affect normal Activity / Motor Behavior: appropriate eye contact Assessment & Plan Assessment/Plan (1) UTI due to extended-spectrum beta lactamase (ESBL) producing Escherichia col i: PLAN: finish 7 days of Levaquin (2) Granulocytopenia: PLAN: Suspect this is due to Seroquel. Will discontinue and start Tr azodone at HS for insomnia in addition to the Gabapentin at night for neuropathy in the L foot. (3) Catheter-associated urinary tract infection: PLAN: Will DC the Flores and allow her to try straight cath (4) Iron deficiency: PLAN: Continue iron and ascorbic acid at lunch. (5) History of aortic dissection: (6) Cognitive dysfunction: PLAN: Negative function is much improved since she has been consistently wearing the CPAP at night. She is also not falling asleep while I talk to her more during her therapy hours. (7) CLARKE (obstructive sleep apnea): PLAN: Continue CPAP. Charges/Coding Visit Charges Inpatient E&M: 12981 Subs Hosp L2
--- NOTE | 2021-08-06 14:50 | CASEMGMT ---
Social Work IDT met with patient, mother and son via conference call for Team meeting. Discussed patient's progress in PT/OT/ST and nursing. Pt progressing well, but still cannot return home alone. Pt will be discharging to [facility] 08/10. [facility] to start precert 08/10, if denied, MCDP# has been provided to [place]. W/C transport through [facility] has been scheduled for 1300. Plan: DC to [facility] 08/10, skilled CARYN Sebastian
[2021-08-06] MEDS: Mag Hydrox/Al Hydrox/Simeth 30 ML UDC PO (19:56)
[2021-08-06] MEDS: QUEtiapine 25 MG Tablet PO (22:18)
[2021-08-06] MEDS: Gabapentin 100 MG Capsule 200 MG PO (22:18)
[2021-08-07] VITALS (11 sets, daily range): BP systolic 124–189; BP diastolic 64–90; PULSE 80–87; RESP 16–23; TEMP 36.3–37.1; O2SAT 95–99; BMI 37.7
--- NOTE | 2021-08-07 00:14 | NURSING ---
2330 pt bp rechecked prior to given lopressor and was 182/87 and ap was 89 at 2114, then second recheck was at 0 and continued to be elevated at 172/86 and ap was 80. rn aware of elevated sbp and will continue to monitor. c-pap -placed on at 2330
--- NOTE | 2021-08-07 01:08 | NURSING ---
Reviewed and agree with [employer] assessment.
--- NOTE | 2021-08-07 01:23 | NURSING ---
0120 pt bp rechecked and was 124/64 and ap of 83. c-pap intact
[2021-08-07] MEDS: levoFLOXacin 250 MG Tablet PO (06:38)
[2021-08-07] MEDS: Arthritis Pain Compound 60 CLICK TUBE TOPICAL ×3 (06:39→21:12)
[2021-08-07] MEDS: Acetaminophen 500 MG Tablet 1000 MG PO ×3 (06:39→21:11)
--- NOTE | 2021-08-07 06:48 | NURSING ---
pt wore c-pap for 5hour and 10 minutes this hs and maintained all this hs
[2021-08-07] MEDS: Magnesium Chloride 64 MG Delay Rel.Tablet 128 MG PO ×2 (09:06→21:12)
[2021-08-07] MEDS: Senna/Docusate Sodium 1 Tablet 2 TABLET PO (09:06)
[2021-08-07] MEDS: Metoprolol Tartrate 25 MG Tablet PO ×2 (09:06→21:11)
[2021-08-07] MEDS: Sertraline 50 MG Tablet PO (09:07)
[2021-08-07] MEDS: busPIRone 5 MG Tablet 10 MG PO (09:07)
[2021-08-07] MEDS: Losartan Potassium 100 MG Tablet PO (09:07)
[2021-08-07] MEDS: Pantoprazole Sodium 20 MG Tablet PO ×2 (09:07→21:11)
[2021-08-07] MEDS: APIXABAN 2.5 MG TABLET PO ×2 (09:07→21:11)
[2021-08-07] MEDS: Aspirin 81 MG TAB.CHEW PO (09:07)
[2021-08-07] MEDS: Cholecalciferol (Vit D3) 125 MCG CAPSULE (5,000 UNITS) PO (09:08)
[2021-08-07] MEDS: Polyethylene Glycol 3350 17 GM PACKET PO (09:08)
--- NOTE | 2021-08-07 10:53 | PN_ITS ---
Progress Note Afebrile The blood pressure in the a.m. is within goal however all other blood pressures throughout the day are elevated. She is currently taking Cozaar 100 mg daily and metoprolol 25 mg twice daily. Heart rate over the past few days has ranged from 71-97. There has been no bradycardia. She is maintaining appropriate oxygen saturation on room air when awake. Good oral intake She is able to self cath however she is not good with sterile technique and the nurses are trying to educate her. Sleeping well. No CP, no SOB and no lightheadedness. Still c/o Left arm pain. She perseverates on this being due to the blood clot in the L radial artery however, the left hand is warm and there is a decent radial pulse. She has intact sensation in th e left hand and the pain is in the upper arm. I think it is musculosketal. GI - Soft, NT, ND, normal BS's, no guarding with palpation Some edema of the feet and ankles that is non-pitting and chronic due to multiple surgeries for club feet in the remote past. no rashes and no breakdown Impressions 1. Debility due to aortic dissection and surgical repair 2. Hx of TBI 3. CLARKE - non-compliant with CPAP in the past 4. Cognitive dysfunction - much improved after she started wearing the CPAP 5. iron deficiency - on Iron and Ascorbic acid. she is on a PPI and may not be able to absorb the Iron, even with the Vitamin C. Would recheck the iron studies again in 6 weeks if she is still anemic and if the iron saturation is less than 20% consider referral to hematology for iron infusions. 6. E. Coli ESBL UTI related to Flores 7. Neurogenic bladder with hx of multiple UTI's - nursing is educating her on proper technique. 8. HTN - ? It is going up? Seroquel can increase BP.....Will DC and use Trazodone for sleep instead. 9. Leukopenia-Seroquel and sertraline are the 2 newest medications and both can cause granulocytopenia but it is not common with either drug. The white blood cell count was low at 4.3 on the day the sertraline was started so I suspect it is the Seroquel that may be lowering the white blood cell count. Will recheck Tuesday, prior to discharge Tuesday since the Seroquel is being discontinued. 10. Add Hydralazine Q4H PRN HTN Visit Charges Inpatient E&M: 23531 Subs Hosp L2
[2021-08-07] MEDS: Ascorbic Acid 500 MG Tablet 1000 MG PO (12:17)
[2021-08-07] MEDS: Ferrous Sulfate 325 MG Tablet PO (12:18)
[2021-08-07] MEDS: oxyCODONE 5 MG Tablet PO ×2 (12:18→21:21)
--- NOTE | 2021-08-07 13:42 | PCM.TXEXTCAR ---
Diet 07/18/21 17:51 Diet: Cardiac - Heart Healthy Food consistency:: Regular Liquid Consistency:: Regular/Thin Diet Comments: add gravy/sauces on the side, pt c/o dry food; extra mrs.dash Ryder trasong Routine Orders/Code Status Enema Type: Fleetz Enema Frequency: Daily PRN Suppository Type: Dulcolax 10mg Suppository Frequency: Daily PRN Change Flores Catheter: She straight caths herself due to hx of neurogenic bladder. O2 Liters per Minute: 1-2 LPM O2 Frequency: PRN Keep PO Greater than or Equal to (%): 90 Routine Lab Work: CBC (1 week) Code Status: Full Code Wound(s) Rt neck: Wound Type: Surgical Incision sternum: Wound Type: Surgical Incision upper mid abdomen: Wound Type: Surgical Incision Left groin: Wound Type: Surgical Incision rt groin: Wound Type: Surgical Incision RAC: Wound Type: Surgical Incision Therapies Weight Bearing: Full weight bearing Physical Therapy: Eval and Treat Occupational Therapy: Eval and Treat Speech Therapy: Eval and Treat Problem/Diagnosis (1) Physical debility: Status: Acute (2) History of aortic dissection: Status: Acute Comment: into the coronary ostia and extending into the abd aorta (3) Hx of repair of dissecting thoracic aortic aneurysm, Ezequiel type A: Status: Acute Comment: Repair Type A aortic dissection, root replacement #27 Konect, ,ascending and arch replacement 30 mm Gelweave tube graft with single side arm, Frozen elephant trunk [place] CTAG 26 X 26 x 10, Left subclavian artery stent 12 x 40 fluency plus, BSAFER.. Reconstruction right coronary artery ostium and left main ostium. 07/04/2021 (4) New cerebellar infarct: Status: Acute Comment: BL (5) Radial artery thrombosis, left: Status: Acute Comment: The hand is warm and the documentation stated it was dora to PICC but I suspect it is venous thrombosis. (6) Spinal cord infarction: Status: Suspected Comment: Though by Neuro to be at the level of C3 (7) Cognitive dysfunction: Status: Acute Comment: this existed prior to the dissection and strokes due to TBI and is worse now (8) Sustained ventricular tachycardia: Status: Acute Comment: RFA 07/16/2021 (9) History of radiofrequency ablation (RFA) procedure for cardiac arrhythmia: Status: Acute Comment: RFA recurrent ventricular tachycardia 07/16/21 (10) History of implantable cardiac defibrillator (ICD): Status: Chronic (11) CLARKE (obstructive sleep apnea): Status: Acute Comment: severe on sleep study 04/16/22. Not compliant with CPAP (12) Acute blood loss anemia: Status: Acute (13) Iron deficiency: Status: Acute (14) Chronic anemia: Status: Chronic Comment: Attributed to iron deficiency (15) Insomnia: Status: Acute Comment: This started after the TBI in 2016 (16) GERD (gastroesophageal reflux disease): Status: Acute (17) Anxiety and depression: Status: Chronic (18) Hypertension: Status: Chronic (19) Obesity (BMI 30-39.9): Status: Chronic (20) Peripheral neuropathy: Status: Acute Comment: L foot/ankle - Allergies/Procedures Done in Hospital Allergies nitrofurantoin [From Macrobid] Allergy (Verified 07/03/21 21:28) Hives Penicillins [PCN] Allergy (Verified 07/03/21 21:28) Swelling amlodipine Adverse Reaction (Verified 07/18/21 19:48) Other ciprofloxacin Adverse Reaction (Verified 07/18/21 19:48) Other erythromycin base [Erythromycin Base] Adverse Reaction (Verified 07/03/21 21:28) Upset Stomach lisinopril Adverse Reaction (Verified 07/18/21 19:47) Other sulfamethoxazole [From Bactrim] Adverse Reaction (Verified 07/03/21 21:28) Upset Stomach trimethoprim [From Bactrim] Adverse Reaction (Verified 07/03/21 21:28) Upset Stomach Procedures: None Type of Care/Length of Stay Estimated LOS: Convalescent Care Less Than 30 days Type of Care Needed: Skilled Rehab Potential: Good Prognosis: Good Additional Orders/Day of Discharge Additional Orders: 1. She must remain upright for30- 60 minutes after eating and you should be in a chair and sitting at 90 degrees anytime she is eating. 2. She be wearing CPAP anytime she is sleeping. Cognitive function severely declines when she does not comply with the CPAP for a few days. 3. She has iron deficiency and she has never had a colonoscopy. 4. She was started on Sertraline for anxiety and depression in the rehab unit and she has been weaned off the Buspar with no problems. 5. She occasionally c/o Abd discomfort/cramping - usually after she has eaten a large meal of greasy foods brought in by family.......hamburgers and fries. 6. She will occasionally c/o chest pain and she was seen by cardiology in rehab and had CE's, EKG and an ECHO and the CP is due to musculoskeletal pain and reflux. 7. She has been on iron chronically but she is also chronically on a PPI. Ascorbic acid was added while in rehab. She needs a repeat iron, TIBC, transferrin saturation and ferritin in 1 month if she is still anemic and if the transferring saturation is Less 20% she should get IV Iron sucrose. 8. She lists many antibiotics as allergies. Some of the reactions are nausea which is a adverse reaction and not an allergy. She had a E. Coli ESL UTI while in rehab and she has tolerated both Cefadroxil and Levaquin with no adverse reactions. I recommended to her that she see and chief of police at some point and be tested for allergies to antibiotics so we know what she is truly allergic to since she lists Nitrofurantoin, PCN, Bactrim, EMycin and Cipro as allergies. H&P will serve as current which was dated: 07/18/21 Day of Discharge: 08/10/21 Dietary and Speech Recommendations Dietitian Recommendations/Changes: Will continue Cardiac - Heart Healthy diet with Ensure Enlive 120mL 4x/day medpass. Will add extra sauce/gravy on the side in addition to extra packets of Mrs. Clinton w/ meals. PO overall much improved at meals, d/c ensure with medpass as indicated upon follow-up if weight remains stable. Speech Linguistic Eval Summary: Informal cognitive-linguistic evaluation. Oriented to name, age, , current month and year. Verbal expression marked by mild-moderate dysarthria w/ frequent sound paraphasias and whole word substitutions. Impaired auditory comprehension suspected w/ little to no self-awareness of errored speech production errors. Significant lethargy was a limiting factor in participation. Plan to administer a standardized assessment of cognitive-communicative function 07/21/21. Follow Up Care Please Follow Up With: Slim Denson DO When: following DC from SNF Please Follow Up With: cardiothoracic surgery at [facility] main campus Discharge Plan Admission Admit Date/Time: 07/18/21 17:35 Primary Reason for Your Visit: Debility due to aortic dissection/CT surgery, cerebellar and spinal infarct Attending Provider: Liberty Robertson Primary Care Provider: Slim Denson Consulting Providers: Bret Kothari ; Rogelio Lopez Discharge Orders/Prescriptions Prescriptions: New acetaminophen 500 mg Tablet 1,000 mg PO Q8 Qty: 0 RF: 0 lidocaine HCl [Lidocaine Viscous] 2 % Solution 5 ml PO TID PRN PRN (Reason: Pain for right cheek) Qty: 0 RF: 0 losartan 100 mg Tablet 100 mg PO DAILY Qty: 0 RF: 0 ascorbic acid (vitamin C) 500 mg Tablet 1,000 mg PO LUNCH Qty: 0 RF: 0 bisacodyl 10 mg Suppository 10 mg NC .PRN X 1 PRN (Reason: Constipation) Qty: 0 RF: 0 Ensure Enlive 0.08 gram-1.5 kcal/mL Liquid 120 ml PO 4X/DAY Qty: 1 RF: 0 ferrous sulfate [FeroSul] 325 mg (65 mg iron) Tablet 325 mg PO DAILY@1200 Qty: 0 RF: 0 gabapentin 100 mg Capsule 200 mg PO 2100 7 Days Qty: 14 RF: 0 hydralazine 10 mg Tablet 10 mg PO Q4H PRN PRN (Reason: Sys>160Dist> 90) Qty: 0 RF: 0 sennosides-docusate sodium [Stool Softener-Stimulant Laxat] 8.6-50 mg Tablet 2 tab PO DAILY Qty: 1 RF: 0 pantoprazole 20 mg Tablet,Delayed Release (Dr/Ec) 20 mg PO BID Qty: 0 RF: 0 magnesium hydroxide 400 mg/5 mL Suspension 30 ml PO .PRN X 1 PRN (Reason: Constipation) Qty: 0 RF: 0 alum-mag hydroxide-simeth [Mag-Al Plus Extra Strength] 400-400-40 mg/5 mL Suspension 30 ml PO Q6H PRN PRN (Reason: chest discomfort) Qty: 0 RF: 0 Mag 64 64 mg Tablet,Delayed Release (Dr/Ec) 128 mg PO BID Qty: 0 RF: 0 menthol-zinc oxide [Calmoseptine] 0.44-20.6 % Ointment 1 applic topical BID Qty: 0 RF: 0 trazodone 50 mg Tablet 50 mg PO QHS Qty: 0 RF: 0 sertraline 50 mg Tablet 50 mg PO DAILY Qty: 0 RF: 0 metoprolol succinate 50 mg capsule,sprinkle,ER 24hr 50 mg PO DAILY Qty: 1 RF: 0 Continued cholecalciferol (vitamin D3) [Vitamin D3] 125 mcg (5,000 unit) Tablet 125 mcg PO DAILY RF: 0 aspirin 81 mg Capsule 81 mg PO DAILY RF: 0 apixaban 2.5 mg Tablet 2.5 mg PO BID Qty: 60 RF: 0 Changed oxycodone 5 mg tablet 5 mg PO Q4H PRN PRN (Reason: pain) 7 Days Qty: 14 RF: 0 Discontinued losartan 50 MG tablet 50 mg PO DAILY RF: 0 acetaminophen [Tylenol] 325 mg Tablet 650 mg PO Q4H PRN (Reason: Pain) RF: 0 ipratropium-albuterol 0.5 mg-3 mg(2.5 mg base)/3 mL Solution For Nebulization 3 ml INHALATION Q6H PRN (Reason: wheeze/sob) RF: 0 dextrose 40 % Gel 15 g PO TID PRN PRN (Reason: Hypoglycemia) RF: 0 alprazolam [Xanax] 0.25 mg Tablet 0.25 mg PO BID PRN (Reason: Anxiety) RF: 0 buspirone 10 mg Tablet 10 mg PO TID RF: 0 lidocaine HCl [Lidocaine Viscous] 2 % Solution 1 applic MUCOUS MEMBRANE TID PRN (Reason: Pain for right cheek) RF: 0 Referrals / Follow Up: Rogelio Lopez MD [STAFF PHYSICIAN] - 08/27/21 3:00 pm Slim Denson DO [Primary Care Provider] - (patient will make follow up appointment) Disposition Disposition (needs filled in before D/C Order can be placed): [facility]
--- NOTE | 2021-08-07 14:28 | DS.PCM_ITS ---
Providers Date of Admission: 07/18/21 Primary Care Physician: Dr. Slim Denson DO Reason For Visit: STROKE Diagnosis Discharge Diagnosis (1) Physical debility: Status: Acute Code(s): R53.81 - Other malaise (2) History of aortic dissection: Status: Acute Code(s): Z86.79 - Personal history of other diseases of the circulatory system (3) Hx of repair of dissecting thoracic aortic aneurysm, [place] type A: Status: Acute Code(s): Z98.890 - Other specified postprocedural states; Z86.79 - Personal history of other diseases of the circulatory system (4) New cerebellar infarct: Status: Acute Code(s): I63.9 - Cerebral infarction, unspecified (5) Radial artery thrombosis, left: Status: Acute Code(s): I74.2 - Embolism and thrombosis of arteries of the upper extremities (6) Spinal cord infarction: Status: Suspected Code(s): G95.11 - Acute infarction of spinal cord (embolic) (nonembolic) (7) Cognitive dysfunction: Status: Acute Code(s): F09 - Unspecified mental disorder due to known physiological condition (8) Sustained ventricular tachycardia: Status: Acute Code(s): I47.2 - Ventricular tachycardia (9) History of radiofrequency ablation (RFA) procedure for cardiac arrhythmia: Status: Acute Code(s): Z98.890 - Other specified postprocedural states (10) History of implantable cardiac defibrillator (ICD): Status: Acute Code(s): Z95.810 - Presence of automatic (implantable) cardiac defibrillator (11) CLARKE (obstructive sleep apnea): Status: Chronic Code(s): G47.33 - Obstructive sleep apnea (adult) (pediatric) (12) Acute blood loss anemia: Status: Acute Code(s): D62 - Acute posthemorrhagic anemia (13) Iron deficiency: Status: Acute Code(s): E61.1 - Iron deficiency (14) Chronic anemia: Status: Chronic Code(s): D64.9 - Anemia, unspecified (15) Insomnia: Status: Chronic Code(s): G47.00 - Insomnia, unspecified Qualifiers: Insomnia type: unspecified Qualified Code(s): G47.00 - Insomnia, unspecified (16) GERD (gastroesophageal reflux disease): Status: Acute Code(s): K21.9 - Gastro-esophageal reflux disease without esophagitis (17) Anxiety and depression: Status: Chronic Code(s): F41.9 - Anxiety disorder, unspecified; F32.9 - Major depressive disorder, single episode, unspecified (18) Hypertension: Status: Chronic Code(s): I10 - Essential (primary) hypertension Qualifiers: Hypertension type: essential hypertension Qualified Code(s): I10 - Essential (primary) hypertension (19) Obesity (BMI 30-39.9): Status: Chronic Code(s): E66.9 - Obesity, unspecified (20) Peripheral neuropathy: Status: Chronic Code(s): G62.9 - Polyneuropathy, unspecified (21) Catheter-associated urinary tract infection: Status: Acute Code(s): T83.511A - Infection and inflammatory reaction due to indwelling urethral catheter, initial encounter; N39.0 - Urinary tract infection, site not specified (22) Granulocytopenia: Status: Acute Code(s): D70.9 - Neutropenia, unspecified (23) UTI due to extended-spectrum beta lactamase (ESBL) producing Escherichia coli: Status: Acute Code(s): N39.0 - Urinary tract infection, site not specified; B96.29 - Other Escherichia coli [E. coli] as the cause of diseases classified elsewhere; Z16.12 - Extended spectrum beta lactamase (ESBL) resistance (24) Neurogenic bladder: Status: Chronic Code(s): N31.9 - Neuromuscular dysfunction of bladder, unspecified Plan: 1. DC to [facility] for additional therapy prior to returning home. 2. Needs a iron, TIBC, % transferrin saturation and ferritin in 4-6 weeks. If the transferrin saturation is still less than 20% would consider IV iron supplementation. She is on Ferrous sulfate and Vitamin C to increase absorption of iron from the GI tract at the time of DC. She has never had a Colonoscopy. 3. Compliance with CPAP is critical to her cognitive function........prior to being consistent with the CPAP she would fall asleep while you were talking with her and cognitive function was very poor making it difficult to do therapy. 4. Follow up with Dr. Denson following DC from [facility]. 5. Follow up with Dr. Lopez for cardiology care. 6. Follow up with cardiothoracic surgeon at [facility]. 7. Follow up with Dr. Vazquez for CLARKE Medications at Discharge Home Medications cholecalciferol (vitamin D3) [Vitamin D3] 125 mcg PO DAILY 07/02/21 aspirin 81 mg PO DAILY 07/18/21 acetaminophen 1,000 mg PO Q8 #0 tab 08/07/21 alum-mag hydroxide-simeth [Mag-Al Plus Extra Strength] 30 ml PO Q6H PRN PRN #0 ml 08/07/21 apixaban 2.5 mg PO BID #60 tab 08/07/21 ascorbic acid (vitamin C) 1,000 mg PO LUNCH #0 tab 08/07/21 bisacodyl 10 mg [place] .PRN X 1 PRN #0 ea 08/07/21 ferrous sulfate [FeroSul] 325 mg PO DAILY@1200 #0 tab 08/07/21 food supplemt, lactose-reduced [Ensure Enlive] 120 ml PO 4X/DAY #1 ml 08/07/21 gabapentin 200 mg PO 2100 7 Days #14 cap 08/07/21 hydralazine 10 mg PO Q4H PRN PRN #0 tab 08/07/21 lidocaine HCl [Lidocaine Viscous] 5 ml PO TID PRN PRN #0 ml 08/07/21 losartan 100 mg PO DAILY #0 tab 08/07/21 magnesium chloride [Mag 64] 128 mg PO BID #0 tab 08/07/21 magnesium hydroxide 30 ml PO .PRN X 1 PRN #0 ml 08/07/21 menthol-zinc oxide [Calmoseptine] 1 applic TOPICAL BID #0 g 08/07/21 metoprolol succinate 50 mg PO DAILY #1 ea 08/07/21 oxycodone 5 mg PO Q4H PRN PRN 7 Days #14 tab 08/07/21 pantoprazole 20 mg PO BID #0 tab 08/07/21 sennosides-docusate sodium [Stool Softener-Stimulant Laxat] 2 tab PO DAILY #1 tab 08/07/21 sertraline 50 mg PO DAILY #0 tab 08/07/21 trazodone 50 mg PO QHS #0 tab 08/07/21 Hospital Course Operations - (07/04/21 repair of aortic dissection at [facility] along with an ablation for VT ) Summary of Care Provided Minutes Spent on Discharge: 50 Hospital Course: GEMA BIENIEK, is a 56 YO F with a PMH of non-ischemic VT (hx of ICD placement), non-obstructive CAD, tobacco dependence in remission, TBI, seizure disorder, hx of CVA (hemorrhagic at the time of the TBI), HLD, severe LCARKE (non-compliant with CPAP), HTN, endometrial CA (S/P radical hysterectomy in 2005), generalized anxiety, Major depression, urine retention due to a neurogenic bladder, hx of trigeminal neuralgia and obesity who presented to the ED at [facility] on 07/02/21 c/o TRAN followed by severe CP estimated at 02/01. She later developed pain in the R face. Chest x-ray in the emergency department showed mild left basilar atelectasis versus scarring and a hiatal hernia. CTA of the chest showed no evidence of pulmonary thromboemboli, thoracic aortic aneurysm or dissection. CTA of the head neck was normal. EKG showed no obvious ischemic changes. She was given a prescription for Pamelor 75 mg and also oxycodone 5 mg tablets. The following day she returned to the ED again c/o a severe R side TRAN. She had taken 3 doses of the Oxycodone 5 mg and Pamelor 75mg and had no relief. Pulse ox on RA at presentation to the ER was 80% and it came up to 89% on a 4LPM NC. BP was low at 70/56. She was not on oxygen at home. Lab was unremarkable with the exception of an elevated Troponin at 1390. She was admitted to the hospitalist service with acute respiratory failure and hypotension due to suspected overdose of sedative medications including Oxycodone/Pamelor and NSTEMI. Cardiology consult was ordered and also a ECHO. The echocardiogram showed dissection flap/ascending aortic dissection extending into the abdominal aorta with moderate aortic insufficiency. The EF was estimated at 55 to 60%. An urgent CTA of the abdomen and chest confirmed the aortic dissection. She was emergently transferred to [facility] for cardiothoracic surgery. Surgery was done on 07/04/21. She underwent root replacement #27 Konect, ascending and arch replacement with Gelweave tube graft with single sidearm, frozen elephant trunk CTAG [id number], left subclavian stent and reconstruction of the RCA ostium and left main ostium. In addition to the repair of the dissection she also had a ablation for VT. Post operatively she had increased neuro deficits including dysarthria and left side weakness and a CTH without contrast revealed possibly acute BL cerebellar infarcts and chronic LBG infarct. A cervical spine infarct was suspected by neurology and MRI of the C/T/L was recommended, but to my knowledge were not completed. She also had a blood clot to the L radial artery and has been on anticoagulation (Eliquis). Post op ECHO showed and EF of 55% and the L atrium was not well visualized. Gema was transferred to the inpt acute rehab unit at [facility] on 07/18/21 for 3 hours of therapy daily to restore function/independence at or near her prior level of function. When she arrived in therapy she was very somnolent and could not even stay awake to talk to me without nodding off to sleep. She was quite confused and did poorly on cognitive testing. She was refusing therapy because she was too tired and she would not comply with CPAP. She had a sleep study in late 2020 and still did not have a proper fitting mask which she perseverated on. She was seen by RT and a suitable mask was obtained. she initially kept removing the mask at night after a short time. She was also c/o pain in the left foot which was keeping her awake. She was started on Seroquel and the Gabapentin for neuropathy in the Left foot was restarted at a lower dose of 200 mg Q HS. she began to sleep through the night and was not removing the mask. Performance in every aspect of therapy improved and she was motivated to do therapy so she could go home. She was no longer sleeping all day and she could stay awake during therapy sessions and when she was having conversations. She had a Flores catheter at transfer to rehab and this was discontinued after she improved with cognition and she has been able to straight herself. Nursing has been instructing her in proper sterile technique to minimize UTI's going forward. She had a catheter related UTI in rehab and it was due to E. COLI ESBL. She was treated with Levaquin 250 mg daily for 7 days and the antibiotics concluded prior to DC to [facility]. Xanax was discontinued at admission to rehab due to the severe cognitive dysfunction. she was started on Sertraline and has tolerated this well. She was weaned off Buspar with no change in her demeanor. If anxiety reappears would consider increasing the Sertraline to 100 mg. Systolic BP has been elevated since admission to rehab and She was transitioned from 25 mg Lopressor BID to Metoprolol XL 50 mg daily with some improvement in the BP. Cozaar was increased to 100 mg daily. The systolic is still mildly elevated at the time of DC. If it remains elevated would consider increasing the Metoprolol to 75-100 mg daily in the AM. Blood pressure at discharge from the hospital is 158/70. Prior to discharge Misty was able to ambulate 120 feet with a wheeled walker at contact-guard assist on various surfaces with no wheelchair follow. She was able to ascend/descend 5 steps with 2 handrails at contact-guard assist. The steps were 4 and 6 inches. She completed 7 sit to stands in 30 seconds and was able to do the tug test in 31.41 seconds, down from 65 seconds on 07/30/21. She is still requiring moderate assistance for bathing and maximal assistance for lower body dressing. Gema is impulsive and has poor safety awareness. She has some flight of ideas although her ability to attend to the task asked of her is improving. She was transferred to [facility] on 08/10/21 for additional therapy prior to returning home. She will follow up with Dr. Denson for primary Care, Dr. Lopez for cardiology, Dr. Vazquez for insomnia and with the CT surgeon at the [facility] [place]. Physical Exam Const alert, oriented x3, no apparent distress and well nourished Constitutional Narrative: Still tends to veer off the topic of conversation. Appears in no acute distress. General Appearance: cooperative, well developed, uncooperative and other Not compliant with getting out of bed today for orthostatics or therapy. HEENT normocephalic and head/scalp atraumatic Eyes PERRL, EOMs intact bilaterally, conjunctivae normal and no scleral icterus Eyes Narrative: No scleral icterus and no conjunctival injection. Neck No nuchal rigidity, supple and no carotid bruits Neck Narrative: Bruising about the neck has resolved since admission to rehab. General: trachea midline; Negative for lymphadenopathy Lymph Lymphatic: no lymphadenopathy noted Chest Chest Narrative: The sternal incision is intact with no dehiscence, no erythema and no DC. Chest: symmetrical chest wall rise Resp normal respiratory effort, normal air movement and clear to auscultation bilaterally Resp Narrative: Initially had a few coarse crackles in the bases but, after several deep breaths the lungs were CTA. She is not tachypneic and she is able to speak in full sentences. Effort and Inspection: able to speak in complete sentences; Negative for tachypneic, respiratory distress, labored or uses accessory muscles Auscultation: diminished lung sounds; Negative for wheezes Cardio regular rate, regular rhythm, S1 normal heart sound, S2 normal heart sound, no murmurs, no rub and no gallops Cardio Narrative: Heart sounds are distant over the apex and likely due to body habitus. GI normal to inspection, nondistended, normoactive bowel sounds, soft to palpation and non-tender GI Narrative: She appears in no distress. Narrative: No irritation around the vaginal introitus, no vaginal DC. Extremity no calf tenderness and no pedal edema Extremity Narrative: The left hand/wrist and forearm today are warm with intact sensation. She did not c/o pain in the LUE today. General Extremity: edema; Negative for clubbing or cyanosis Skin no jaundice Skin Narrative: Incisions are healing well and have no erythema or DC. General Skin Exam: no breakdown Rashes: no rashes Neuro CN's II-XII intact bilaterally, moves all extremities and no focal motor deficits Neuro Narrative: Alert, oriented X 3, moving all extremities, She has some weakness in the LUE which may be due to the spinal infarct that was suspected at C3.......this may also be associated with the pain.......which is mild and there is no need to treat at this time as she appears very comfortable. Psych cooperative, denies hallucinations, denies homicidal ideation and denies suicidal ideation Appearance: grossly normal Attitude: calm, engaged, No belligerent, No agitated, No aggressive and No hostile Activity / Motor Behavior: appropriate eye contact and disorganized; Negative for psychomotor agitation, fidgetting, hyperactive or restless Speech: normal speech, excessive and No slurred Mood & Affect: expansive affect; Negative for anxious, sad or tearful Thought Process: flight of ideas and loose associations Thought Content: No depersonalization Memory / Cognition: cognition impaired Insight: poor Judgement: poor Weight / BMI Weight Weight: 181 lb 14.102 oz Body Mass Index (BMI) 37.7 ABG / Lab / Microbiology Data Result Diagrams: 08/05/21 07:15 08/09/21 06:39 Microbiology: Microbiology 07/29/21 23:30 Urine Catheter - Flores Urine Culture - Final Escherichia coli 07/20/21 23:11 Urine Catheter - Flores Urine Culture - Final Lilia albicans D/C Instructions Please Follow Up With: Slim Denson, DO Meaningful Use Info Meaningful Use Diagnoses (Choose all that apply): Ischemic CVA (embolic ) AMI/Post PCI/Angioplasty ASA at discharge?: Yes CVA Therapy Assessed for PT,OT and/or ST?: Yes Ischemic Stroke Antithrombotic order at d/c?: Yes Dx of Atrial fib/flutter?: No Anticoagulant at discharge?: No Reason anticoagulant not ordered: Treatment not Indicated Statins at discharge?: No Reason Statin not ordered: Treatment not Indicated Primary Dx Acute Ischemic CVA?: Yes IV tPA ordered during stay?: No Reason IV t-PA not ordered: Treatment not Indicated Discharge Plan Admission Admit Date/Time: 07/18/21 17:35 Primary Reason for Your Visit: Debility due to aortic dissection/CT surgery, cerebellar and spinal infarct Attending Provider: Liberty Robertson Primary Care Provider: Slim Denson Consulting Providers: Bret Kothari ; Rogelio Lopez Discharge Orders/Prescriptions Prescriptions: New acetaminophen 500 mg Tablet 1,000 mg PO Q8 Qty: 0 RF: 0 lidocaine HCl [Lidocaine Viscous] 2 % Solution 5 ml PO TID PRN PRN (Reason: Pain for right cheek) Qty: 0 RF: 0 losartan 100 mg Tablet 100 mg PO DAILY Qty: 0 RF: 0 ascorbic acid (vitamin C) 500 mg Tablet 1,000 mg PO LUNCH Qty: 0 RF: 0 bisacodyl 10 mg Suppository 10 mg [place] .PRN X 1 PRN (Reason: Constipation) Qty: 0 RF: 0 Ensure Enlive 0.08 gram-1.5 kcal/mL Liquid 120 ml PO 4X/DAY Qty: 1 RF: 0 ferrous sulfate [FeroSul] 325 mg (65 mg iron) Tablet 325 mg PO DAILY@1200 Qty: 0 RF: 0 gabapentin 100 mg Capsule 200 mg PO 2100 7 Days Qty: 14 RF: 0 hydralazine 10 mg Tablet 10 mg PO Q4H PRN PRN (Reason: Sys>160Dist> 90) Qty: 0 RF: 0 sennosides-docusate sodium [Stool Softener-Stimulant Laxat] 8.6-50 mg Tablet 2 tab PO DAILY Qty: 1 RF: 0 pantoprazole 20 mg Tablet,Delayed Release (Dr/Ec) 20 mg PO BID Qty: 0 RF: 0 magnesium hydroxide 400 mg/5 mL Suspension 30 ml PO .PRN X 1 PRN (Reason: Constipation) Qty: 0 RF: 0 alum-mag hydroxide-simeth [Mag-Al Plus Extra Strength] 400-400-40 mg/5 mL Suspension 30 ml PO Q6H PRN PRN (Reason: chest discomfort) Qty: 0 RF: 0 Mag 64 64 mg Tablet,Delayed Release (Dr/Ec) 128 mg PO BID Qty: 0 RF: 0 menthol-zinc oxide [Calmoseptine] 0.44-20.6 % Ointment 1 applic topical BID Qty: 0 RF: 0 trazodone 50 mg Tablet 50 mg PO QHS Qty: 0 RF: 0 sertraline 50 mg Tablet 50 mg PO DAILY Qty: 0 RF: 0 metoprolol succinate 50 mg capsule,sprinkle,ER 24hr 50 mg PO DAILY Qty: 1 RF: 0 Continued cholecalciferol (vitamin D3) [Vitamin D3] 125 mcg (5,000 unit) Tablet 125 mcg PO DAILY RF: 0 aspirin 81 mg Capsule 81 mg PO DAILY RF: 0 apixaban 2.5 mg Tablet 2.5 mg PO BID Qty: 60 RF: 0 Changed oxycodone 5 mg tablet 5 mg PO Q4H PRN PRN (Reason: pain) 7 Days Qty: 14 RF: 0 Discontinued losartan 50 MG tablet 50 mg PO DAILY RF: 0 acetaminophen [Tylenol] 325 mg Tablet 650 mg PO Q4H PRN (Reason: Pain) RF: 0 ipratropium-albuterol 0.5 mg-3 mg(2.5 mg base)/3 mL Solution For Nebulization 3 ml INHALATION Q6H PRN (Reason: wheeze/sob) RF: 0 dextrose 40 % Gel 15 g PO TID PRN PRN (Reason: Hypoglycemia) RF: 0 alprazolam [Xanax] 0.25 mg Tablet 0.25 mg PO BID PRN (Reason: Anxiety) RF: 0 buspirone 10 mg Tablet 10 mg PO TID RF: 0 lidocaine HCl [Lidocaine Viscous] 2 % Solution 1 applic MUCOUS MEMBRANE TID PRN (Reason: Pain for right cheek) RF: 0 Referrals / Follow Up: Piyush Vazquez [Other] - 02/01/22 10:20 am (Sleep Apnea ) Marquita [facility] [Other] Rogelio Lopez MD [STAFF PHYSICIAN] - 08/27/21 3:00 pm Slim Denson DO [Primary Care Provider] - (patient will make follow up appointment) Disposition Disposition (needs filled in before D/C Order can be placed): Long-Term Facility Charges/Coding Visit Charges Inpatient E&M: 56810 Disch Hosp
--- NOTE | 2021-08-07 14:37 | CASEMGMT ---
SW completed 7000 in [employer] system. Elzbieta Jiang CHANNELER OUTSOLE PHOTO TECHNICIAN
[2021-08-07] MEDS: hydrALAZINE 10 MG Tablet PO (17:42)
[2021-08-07] MEDS: Gabapentin 100 MG Capsule 200 MG PO (21:11)
[2021-08-07] MEDS: traZODone 50 MG Tablet PO (21:11)
[2021-08-07] MEDS: Mag Hydrox/Al Hydrox/Simeth 30 ML UDC PO (21:44)
--- NOTE | 2021-08-07 22:54 | NURSING ---
Respiratory called per patient request to discuss issues with gas pain from wearing CPAP. Respiratory assessed and brought her a hospital CPAP set at 11 to ease gas pains. CPAP being placed on at this time.
[2021-08-08] VITALS (10 sets, daily range): BP systolic 152–181; BP diastolic 72–83; PULSE 86–113; RESP 16–26; TEMP 36.6–37; O2SAT 95–98; BMI 37.7
--- NOTE | 2021-08-08 01:53 | NURSING ---
Reviewed and agree with [employer] assessment.
[2021-08-08] MEDS: Acetaminophen 500 MG Tablet 1000 MG PO ×3 (05:37→21:17)
[2021-08-08] MEDS: levoFLOXacin 250 MG Tablet PO (05:37)
[2021-08-08] MEDS: Arthritis Pain Compound 60 CLICK TUBE TOPICAL ×3 (05:38→21:26)
[2021-08-08] MEDS: Aspirin 81 MG TAB.CHEW PO (07:25)
[2021-08-08] MEDS: busPIRone 5 MG Tablet 10 MG PO (10:12)
[2021-08-08] MEDS: APIXABAN 2.5 MG TABLET PO ×2 (10:13→21:17)
[2021-08-08] MEDS: Losartan Potassium 100 MG Tablet PO (10:13)
[2021-08-08] MEDS: Pantoprazole Sodium 20 MG Tablet PO ×2 (10:14→21:18)
[2021-08-08] MEDS: Magnesium Chloride 64 MG Delay Rel.Tablet 128 MG PO ×2 (10:14→21:21)
[2021-08-08] MEDS: Metoprolol(XL)Succ 50 MG Tablet PO (10:16)
[2021-08-08] MEDS: Sertraline 50 MG Tablet PO (10:18)
[2021-08-08] MEDS: Cholecalciferol (Vit D3) 125 MCG CAPSULE (5,000 UNITS) PO (10:18)
[2021-08-08] MEDS: Ferrous Sulfate 325 MG Tablet PO (11:47)
[2021-08-08] MEDS: Ascorbic Acid 500 MG Tablet 1000 MG PO (11:47)
[2021-08-08] MEDS: oxyCODONE 5 MG Tablet PO ×2 (12:19→21:34)
[2021-08-08] MEDS: hydrALAZINE 10 MG Tablet PO ×2 (18:54→23:04)
[2021-08-08] MEDS: traZODone 50 MG Tablet PO (21:18)
[2021-08-08] MEDS: Gabapentin 100 MG Capsule 200 MG PO (21:19)
[2021-08-09] VITALS (13 sets, daily range): BP systolic 150–204; BP diastolic 62–106; PULSE 74–92; RESP 14–16; TEMP 36.3–36.9; O2SAT 95–97; BMI 37.7
[2021-08-09] MEDS: Arthritis Pain Compound 60 CLICK TUBE TOPICAL ×3 (05:51→22:28)
[2021-08-09] MEDS: Acetaminophen 500 MG Tablet 1000 MG PO ×3 (06:17→22:28)
[2021-08-09] MEDS: levoFLOXacin 250 MG Tablet PO (06:17)
[2021-08-09 07:21] LABS: Anion Gap 5 (5-15); BUN 14 mg/dL (7-18); BUN/Creat Ratio 22.3 RATIO (10-20); Calcium,Total 8.6 mg/dL (8.5-10.1); Chloride 110 mmol/L (98-107); Creatinine, Serum 0.63 mg/dL (0.55-1.02); EST Glomerular Filtration Rate 104 mL/min (>60); Est Glom Filt Rate - Afr Amer 126 mL/min (>60); Estimated Creatinine Clearance 76.14 ml/min; Glucose 96 mg/dL (74-106); Potassium 3.9 mmol/L (3.5-5.1); Sodium Level 141 mmol/L (136-145)
[2021-08-09] MEDS: Aspirin 81 MG TAB.CHEW PO (07:55)
[2021-08-09] MEDS: Cholecalciferol (Vit D3) 125 MCG CAPSULE (5,000 UNITS) PO (10:09)
[2021-08-09] MEDS: Metoprolol(XL)Succ 50 MG Tablet PO (10:09)
[2021-08-09] MEDS: APIXABAN 2.5 MG TABLET PO ×2 (10:09→22:28)
[2021-08-09] MEDS: Sertraline 50 MG Tablet PO (10:09)
[2021-08-09] MEDS: Pantoprazole Sodium 20 MG Tablet PO ×2 (10:10→22:28)
[2021-08-09] MEDS: busPIRone 5 MG Tablet 10 MG PO (10:10)
[2021-08-09] MEDS: Losartan Potassium 100 MG Tablet PO (10:10)
[2021-08-09] MEDS: Magnesium Chloride 64 MG Delay Rel.Tablet 128 MG PO ×2 (10:11→22:27)
[2021-08-09] MEDS: Menthol/Lanolin/Calamine/Znox 113 GM Tube 1 APPLIC TOPICAL ×2 (10:12→22:29)
[2021-08-09] MEDS: Ascorbic Acid 500 MG Tablet 1000 MG PO (11:34)
[2021-08-09] MEDS: Ferrous Sulfate 325 MG Tablet PO (11:34)
[2021-08-09] MEDS: oxyCODONE 5 MG Tablet PO ×2 (11:37→20:50)
[2021-08-09] MEDS: hydrALAZINE 10 MG Tablet PO ×3 (11:48→22:31)
[2021-08-09] MEDS: Mag Hydrox/Al Hydrox/Simeth 30 ML UDC PO (20:51)
[2021-08-09] MEDS: Gabapentin 100 MG Capsule 200 MG PO (20:51)
[2021-08-09] MEDS: traZODone 50 MG Tablet PO (22:28)
--- NOTE | 2021-08-09 23:31 | NURSING ---
RT came to pt room for CPAP application. Pt refused at this time saying she wants to watch a movie and can't wear her glasses when CPAP is on. Will monitor.
[2021-08-10] VITALS (7 sets, daily range): BP systolic 146–158; BP diastolic 70–81; PULSE 77–86; RESP 15–18; TEMP 36–36.4; O2SAT 94–96; BMI 37.7
--- NOTE | 2021-08-10 01:10 | NURSING ---
Applied CPAP @ 01:05 and bandaid applied over nose d/t complaint of mask digging into bridge of nose. Within minutes pt is calling staff so pt can blow her nose.
[2021-08-10] MEDS: Arthritis Pain Compound 60 CLICK TUBE TOPICAL (06:41)
[2021-08-10] MEDS: Acetaminophen 500 MG Tablet 1000 MG PO (06:42)
[2021-08-10] MEDS: levoFLOXacin 250 MG Tablet PO (06:42)
[2021-08-10] MEDS: Aspirin 81 MG TAB.CHEW PO (08:18)
[2021-08-10] MEDS: oxyCODONE 5 MG Tablet PO (08:21)
[2021-08-10] MEDS: busPIRone 5 MG Tablet 10 MG PO (09:08)
[2021-08-10] MEDS: APIXABAN 2.5 MG TABLET PO (09:09)
[2021-08-10] MEDS: Losartan Potassium 100 MG Tablet PO (09:09)
[2021-08-10] MEDS: Polyethylene Glycol 3350 17 GM PACKET PO (09:10)
[2021-08-10] MEDS: Senna/Docusate Sodium 1 Tablet 2 TABLET PO (09:10)
[2021-08-10] MEDS: Pantoprazole Sodium 20 MG Tablet PO (09:10)
[2021-08-10] MEDS: Magnesium Chloride 64 MG Delay Rel.Tablet 128 MG PO (09:10)
[2021-08-10] MEDS: Cholecalciferol (Vit D3) 125 MCG CAPSULE (5,000 UNITS) PO (09:11)
[2021-08-10] MEDS: Metoprolol(XL)Succ 50 MG Tablet PO (09:11)
[2021-08-10] MEDS: Sertraline 50 MG Tablet PO (09:11)
[2021-08-10] MEDS: Menthol/Lanolin/Calamine/Znox 113 GM Tube 1 APPLIC TOPICAL (09:17)
[2021-08-10] MEDS: Ferrous Sulfate 325 MG Tablet PO (12:34)
[2021-08-10] MEDS: Ascorbic Acid 500 MG Tablet 1000 MG PO (12:34)
--- NOTE | 2021-08-10 13:18 | NURSING ---
Discharged to [facility]. Report called to Germaine
== END 2021-08-10 13:20 | disposition skilled nursing facility (03) | DRG 949 ==
PROVIDERS: Hospitalist; Admitting Provider Internal Medicine; PCP Student in an Organized Health Care Education/Training Program; Visit Provider Internal Medicine
DX: Z48.812 Encounter for surgical aftercare following surgery on the circulatory system (principal); I71.03 Dissection of thoracoabdominal aorta; I21.4 Non-ST elevation (NSTEMI) myocardial infarction; G95.11 Acute infarction of spinal cord (embolic) (nonembolic); I82 Other venous embolism and thrombosis; I47.2 Ventricular tachycardia; I69.354 Hemiplegia and hemiparesis following cerebral infarction affecting left non-dominant side; I82.622 Acute embolism and thrombosis of deep veins of left upper extremity; D70.9 Neutropenia, unspecified; T83.511A Infection and inflammatory reaction due to indwelling urethral catheter, initial encounter; N39.0 Urinary tract infection, site not specified; G31.84 Mild cognitive impairment of uncertain or unknown etiology; B96.20 Unspecified Escherichia coli [E. coli] as the cause of diseases classified elsewhere; F32.9 Major depressive disorder, single episode, unspecified; K21.9 Gastro-esophageal reflux disease without esophagitis; E78.5 Hyperlipidemia, unspecified; I10 Essential (primary) hypertension; K44.9 Diaphragmatic hernia without obstruction or gangrene; E61.1 Iron deficiency; G47.33 Obstructive sleep apnea (adult) (pediatric); I69.322 Dysarthria following cerebral infarction; G47.00 Insomnia, unspecified; E66.9 Obesity, unspecified; N31.9 Neuromuscular dysfunction of bladder, unspecified; F41.1 Generalized anxiety disorder; Z68.35 Body mass index [BMI] 35.0-35.9, adult; Z87.891 Personal history of nicotine dependence; Z95.810 Presence of automatic (implantable) cardiac defibrillator; Z79.899 Other long term (current) drug therapy; Z79.82 Long term (current) use of aspirin; Z86.16 Personal history of COVID-19
CPT/HCPCS: 36415; 71045; 80048; 80053; 81001; 82728; 82962; 83540; 83550; 83735; 84100; 84484; 85025; 85027; 85652; 86140; 87077; 87086; 87088; 87186; 87426; 92507; 92523; 92610; 93005; 93306; 94002; 94003; 94660; 94667; 94668; 94762; 96125; 97110; 97116; 97129; 97130; 97162; 97166; 97530; 97535; 97802

== ENCOUNTER 2021-08-16 19:24 | Emergency (ER) | payer OTHER, SELFPAY ==
[2021-08-16 19:25] VITALS: BP 204/99; PULSE 69; RESP 16; TEMP 36.3; O2SAT 97; BMI 34.5
--- NOTE | 2021-08-16 19:57 | CT_ITS ---
STUDY: CTA CHEST REASON FOR EXAM: Female, 56 years old. chest pain, high BP, recent aortic dissection RADIATION DOSAGE (If Supplied By Facility): CTDIvol = ( 14.84 ) mGy, DLP = ( 432.01 ) mGycm TECHNIQUE: The examination was performed with the intravenous administration of IV 100mL [id number]-370. Post-processing of the angiographic images was performed, with multiplanar reformation and 3D reconstruction. Individualized dose optimization techniques were used for this CT. COMPARISON: CT chest 07/04/2021. FINDINGS: LUNGS: Dependent atelectasis. Mild hazy opacities throughout the lungs. No large consolidation. PLEURA: Small bilateral pleural effusions greater on the right. Slightly increased compared to the prior study. No pneumothorax. PULMONARY VESSELS: No definite pulmonary emboli identified. Somewhat limited by respiratory motion. MEDIASTINUM: Minimal stranding in the anterior mediastinum retrosternal along the sternotomy site. No large localized collection. Moderate-sized hiatal hernia with approximately one half the stomach in the left lower chest, appears increased size compared to prior mildly distended. The intra-abdominal portion of the stomach relatively decreased caliber with relative transition at the GE junction. HEART: Enlarged. Aortic valve prosthesis. Pacemaker leads. Pericardial effusion. AORTA/GREAT VESSELS: Post repair of aortic dissection. Ascending aorta postsurgical changes, maximal transverse diameter 4 cm at the aortic root just distal to the valve prosthesis, mid ascending is 3 cm, no dissection. Stent in the arch to proximal descending, maximal 2.7 cm at the proximal descending, no dissection. Dissection in the distal descending aorta to the abdomen, maximal transverse diameter of the descending aortic lumen 2.8 cm AP by 2.5 cm transverse, and appears similar to the prior study. Stent in the proximal left subclavian artery. The great vessels are patent with no dissection. UPPER ABDOMEN: No acute findings. BONES/SOFT TISSUES: Sternotomy recent with minimal stranding overlying. OTHER: None. CT/CTA Chest W/WO Contrast IMPRESSION: Post repair of Ezequiel type A dissection, postsurgical changes of the ascending aorta and stent in the arch and left subclavian, with residual [place] B dissection descending aorta to the abdomen. No proximal extension of dissection to the ascending aorta. Ascending aorta 4 cm diameter at the root just distal to the aortic valve prosthesis. No definite evidence of pulmonary emboli. Mild stranding in the anterior mediastinum likely postsurgical changes with recent sternotomy. No large mediastinal collection. Small bilateral pleural effusions slightly increased with basilar atelectasis. Moderate sized hiatal hernia with relative distention of the intrathoracic portion of the stomach and relative transition at the diaphragm, cannot exclude partial degree of outlet obstruction. This is increased compared to the prior study. Electronically Signed: Celsa Gonzalez MD at 21:53 EDT ,
--- NOTE | 2021-08-16 19:57 | EKG12_ITS ---
Test Reason : CP Blood Pressure : / mmHG Vent. Rate : 074 BPM Atrial Rate : 074 BPM P-R Int : 140 ms QRS Dur : 080 ms QT Int : 406 ms P-R-T Axes : 002 -05 032 degrees QTc Int : 450 ms Sinus rhythm with occasional Premature ventricular complexes Poor R wave progression Nonspecific T wave abnormality Confirmed by RADHA GOODWIN, GABRIELLA ([id number]), food expeditor СЕРГЕЙ VALDERRAMA ([id number]) on 08/18/2021 11:15:23 AM Referred By: Confirmed By:GABRIELLA GARCIA MD
--- NOTE | 2021-08-16 20:03 | EX.ED.DYSGE1 ---
HPI History of Present Illness Chief Complaint: Hypertension Informant: patient and family Onset/Context/Timing Onset: Today Narrative Narrative: Patient here from an inpatient rehab, [place], because her pressure has been high all day over 200. They have been giving her prn pills of hydralazine, but it has not come down. The patient states she recently had an aortic dissection repair at [facility], she subsequently had an ablation, this was in June. She had some ischemic stroke complications that put her in rehab, she is there now. She is long she can remember since the surgery, she cannot tell if it is just soreness from the incisions, sometimes she feels it in her back, she denies any severe chest pain drain output she does have discomfort right now that has been there for about 2 or 3 days. She states she has some discomfort in the left side of her neck, she has no idea how long that has been there because I have lots of aches and pains all over. She states that she also has memory lapse from the past month or 2 and does not recall everything. Overall today, it sounds like she denies any new symptoms except for feeling tired. She states she also has a blood clot in her left upper extremity, she is on apixaban. [facility] Medical History Arthritis Cognitive dysfunction COVID-19 DVT (deep venous thrombosis) (07/14/21) Endometrial cancer Former tobacco use Generalized anxiety disorder History of IBS History of traumatic brain injury Hypertension Infarction of left basal ganglia Insomnia Intracerebral bleed due to trauma Major depressive disorder, recurrent severe without psychotic features Neurogenic bladder Non-sustained ventricular tachycardia CLARKE (obstructive sleep apnea) Peripheral neuropathy Prediabetes Right inguinal hernia SBO (small bowel obstruction) Seizure disorder Seizures Sustained ventricular tachycardia Tobacco dependence due to cigarettes, in remission Urinary retention Ventricular tachycardia Home Medications cholecalciferol (vitamin D3) [Vitamin D3] 125 mcg PO DAILY 07/02/21 [History Last Taken Unknown] aspirin 81 mg PO DAILY 07/18/21 [History Last Taken Unknown] acetaminophen 1,000 mg PO Q8 #0 tab 08/07/21 [Rx Last Taken Unknown] alum-mag hydroxide-simeth [Mag-Al Plus Extra Strength] 30 ml PO Q6H PRN PRN #0 ml 08/07/21 [Rx Last Taken Unknown] apixaban 2.5 mg PO BID #60 tab 08/07/21 [Rx Last Taken Unknown] ascorbic acid (vitamin C) 1,000 mg PO LUNCH #0 tab 08/07/21 [Rx Last Taken Unknown] bisacodyl 10 mg GA .PRN X 1 PRN #0 ea 08/07/21 [Rx Last Taken Unknown] ferrous sulfate [FeroSul] 325 mg PO DAILY@1200 #0 tab 08/07/21 [Rx Last Taken Unknown] food supplemt, lactose-reduced [Ensure Enlive] 120 ml PO 4X/DAY #1 ml 08/07/21 [Rx Last Taken Unknown] gabapentin 200 mg PO 2100 7 Days #14 cap 08/07/21 [Rx Last Taken Unknown] hydralazine 10 mg PO Q4H PRN PRN #0 tab 08/07/21 [Rx Last Taken Unknown] lidocaine HCl [Lidocaine Viscous] 5 ml PO TID PRN PRN #0 ml 08/07/21 [Rx Last Taken Unknown] losartan 100 mg PO DAILY #0 tab 08/07/21 [Rx Last Taken Unknown] magnesium chloride [Mag 64] 128 mg PO BID #0 tab 08/07/21 [Rx Last Taken Unknown] magnesium hydroxide 30 ml PO .PRN X 1 PRN #0 ml 08/07/21 [Rx Last Taken Unknown] menthol-zinc oxide [Calmoseptine] 1 applic TOPICAL BID #0 g 08/07/21 [Rx Last Taken Unknown] metoprolol succinate 50 mg PO DAILY #1 ea 08/07/21 [Rx Last Taken Unknown] oxycodone 5 mg PO Q4H PRN PRN 7 Days #14 tab 08/07/21 [Rx Last Taken Unknown] pantoprazole 20 mg PO BID #0 tab 08/07/21 [Rx Last Taken Unknown] sennosides-docusate sodium [Stool Softener-Stimulant Laxat] 2 tab PO DAILY #1 tab 08/07/21 [Rx Last Taken Unknown] sertraline 50 mg PO DAILY #0 tab 08/07/21 [Rx Last Taken Unknown] trazodone 50 mg PO QHS #0 tab 08/07/21 [Rx Last Taken Unknown] hydroxyzine pamoate 50 mg PO Q8H PRN #30 capsule 08/16/21 [Rx Last Taken Unknown] Allergy/AdvReac Type Severity Reaction Status Date / Time nitrofurantoin Allergy Hives Verified 08/16/21 19:29 [From Macrobid] Penicillins [PCN] Allergy Swelling Verified 08/16/21 19:29 amlodipine AdvReac Other Verified 08/16/21 19:29 ciprofloxacin AdvReac Other Verified 08/16/21 19:29 erythromycin base AdvReac Upset Verified 08/16/21 19:29 [Erythromycin Base] Stomach lisinopril AdvReac Other Verified 08/16/21 19:29 sulfamethoxazole AdvReac Upset Verified 08/16/21 19:29 [From Bactrim] Stomach trimethoprim [From Bactrim] AdvReac Upset Verified 08/16/21 19:29 Stomach Family History (Updated 07/20/21 @ 14:[address] Liberty Robertson DO) Mother Cancer Hx endometrial CA. Hypertension Father Myocardial infarction Heart disease Hypertension Grandfather CAD (coronary artery disease) Diabetes Daughter Seizures Surgical History H/O umbilical hernia repair H/O: hysterectomy (~2005) History of cholecystectomy History of implantable cardiac defibrillator (ICD) (05/2020) Hx of breast reduction, elective Hx of repair of dissecting thoracic aortic aneurysm, Ezequiel type A (07/04/21) s/p right inguinal hernia repair with mesh (~06/27/18) Status post club foot correction at Status post implantation of automatic cardioverter/defibrillator (AICD) Social History adopted: No household members: spouse housing: house number of children: 2 current occupational status: employed 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 She had seizures. Smoking Status: Former smoker how long ago did patient quit smoking: She quit smoking in 1995 alcohol intake: current alcohol intake frequency: holidays/special occasions only substance use type: does not use ROS ROS ED Constitutional Constitutional ED: Denies chills or fever(s) Eyes Eyes: Denies change in vision or diplopia ENT ENT ED: Denies rhinorrhea or sore throat Cardiovascular Cardiovascular: Reports as per HPI, chest pain and pedal edema; Denies palpitations Respiratory/Chest Respiratory/Chest: Denies cough or dyspnea Gastrointestinal Gastrointestinal: Denies abdominal pain, diarrhea, nausea or vomiting Genitourinary Genitourinary ED: Denies dysuria or hematuria Musculoskeletal Musculoskeletal: Reports back pain; Denies neck pain Integumentary Denies abscess or rash Neurologic Neurologic: Reports weakness; Denies headache(s) or paresthesias Psychiatric Psychiatric: Denies anxiety or suicidal thoughts EXAM Physical Exam Const Vital Signs: 08/16/21 19:25 08/16/21 20:21 08/16/21 21:06 Temperature 97.4 F L Temperature Source Temporal Pulse Rate 69 72 Respiratory Rate 16 18 Respiratory Effort Non-Labored Respiratory Pattern Normal Blood Pressure 204/99 H 191/82 H Blood Pressure Mean 134 118 Pulse Ox 97 95 Oxygen Delivery Method Room Air Room Air 08/16/21 21:21 08/16/21 22:13 Temperature Temperature Source Pulse Rate 78 84 Respiratory Rate 18 13 Respiratory Effort Respiratory Pattern Blood Pressure 169/88 H 173/74 H Blood Pressure Mean 115 Pulse Ox 98 98 Oxygen Delivery Method Room Air Positive well nourished and well developed General Appearance ED: well developed and NAD HEENT Reports moist mucous membranes normocephalic and atraumatic Eyes PERRL and EOMs intact bilaterally Neck full ROM and supple Resp normal respiratory effort and clear to auscultation bilaterally Cardio regular rate, regular rhythm and no murmurs GI non-tender and non-distended Auscultation: normoactive bowel sounds Palpation: soft Back/Spine no CVA tenderness General Back: other FROM Extremity normal to inspection and no calf tenderness Extremity Narrative: Symmetric 2+/4 radial and dorsalis pedis pulses General Extremety ED: Yes edema; Negative for pulses abnormal or tenderness General Extremity: edema bilateral lower extremity Details: moderate (symmetric); Negative for pulses abnormal Neuro oriented x3, CN's II-XII intact bilaterally and no sensory deficits noted Neuro Narrative: Weakness in both lower extremities symmetrically, able to move them and resist gravity some Sensorium / Orientation: awake and alert Skin no rashes or lesions noted and no wounds MDM MDM MDM Narrative Medical decision making narrative: Patient was given IV hydralazine 20 mg after verifying that her last echocardiogram showed no aortic stenosis. This brought her blood pressure down to the low 170s, she states most nights her blood pressure is in the 170s. She states it tends to be lower in the daytime. Given her chest discomfort and her lack of ability to give me much in the way of details of it or the timing, I obtained a CT angiography of the chest in order to evaluate her repair and possibility of pulmonary emboli. CT shows that she does not have PE and that her type a aortic dissection repair is stable, and there are no other acute abnormalities. Therefore suspect her chest pain is chest wall pain due to her incision which appears to be healing well, and we have her pressure under better control. Started going up a little so I gave her a clonidine 0.1 mg orally which is also ordered prn on her list, she and family state her doctors have been considering giving it to her regularly. When I went in to reevaluate her, she states she is feeling very anxious and would like something for her anxiety. She recently discovered that when she was discharged from rehab here at [place], they discontinued her anxiety medications and she is not happy about that. I advised her she will need to discuss with her primary care provider or someone who will continue caring for her visit after visit with regards to this and any other controlled substances but I gave her a dose of Ativan here which helped. Her a nurse practitioner at the nursing facility she is at now is requesting something temporary so I will prescribe her some Vistaril to use as needed. Lab Data Attestation: I reviewed the patient's lab results. Labs: Laboratory Results - last 24 hr 08/16/21 08/16/21 08/16/21 20:10 20:10 20:10 WBC 4.8 RBC 4.46 Hgb 12.6 Hct 41.0 MCV 91.9 MCH 28.3 MCHC 30.7 L RDW Std Deviation 49.2 H RDW Coeff of Love 14.6 Plt Count 277 MPV 9.6 Immature Gran % (Auto) 0.200 Neut % (Auto) 58.9 Lymph % (Auto) 26.0 [place] % (Auto) 11.5 H Eos % (Auto) 2.1 Baso % (Auto) 1.3 H Absolute Neuts (auto) 2.8 Absolute Lymphs (auto) 1.24 Nucleated RBC % 0 Sodium 141 Potassium 4.0 Chloride 111 H Carbon Dioxide 23.0 Anion Gap 7 BUN 9 Creatinine 0.75 Estim Creat Clear Calc 63.95 Est GFR (MDRD) Af Amer 103 Est GFR (MDRD) Non-Af 85 BUN/Creatinine Ratio 12.0 Glucose 105 Calcium 9.4 Troponin I High Sens 18 Radiography Diagnostic Testing: Clinical Impression(s) from Imaging Studies Chest CTA 08/16/21 19:57 IMPRESSION: Post repair of [place] type A dissection, postsurgical changes of the ascending aorta and stent in the arch and left subclavian, with residual Ezequiel B dissection descending aorta to the abdomen. No proximal extension of dissection to the ascending aorta. Ascending aorta 4 cm diameter at the root just distal to the aortic valve prosthesis. No definite evidence of pulmonary emboli. Mild stranding in the anterior mediastinum likely postsurgical changes with recent sternotomy. No large mediastinal collection. Small bilateral pleural effusions slightly increased with basilar atelectasis. Moderate sized hiatal hernia with relative distention of the intrathoracic portion of the stomach and relative transition at the diaphragm, cannot exclude partial degree of outlet obstruction. This is increased compared to the prior study. Electronically Signed: Celsa Gonzalez MD at 21:53 EDT , Rhythm Strip Rhythm Strip: Sinus Rhythm Rate: 75 Ectopy: PVC(s) EKG Initial EKG: Attestation: I personally reviewed and interpreted this EKG as follows: Interpretation: Sinus Rhythm and No Acute Injury Pattern Comments: Old anterior OH Prior EKG tracings: available for review Prior: Unchanged Discharge Plan Triage Chief Complaint: Hypertension ED Provider: Wesley Schneider Dx/Rx/DC Orders Clinical Impression: Accelerated hypertension, Hx of repair of dissecting thoracic aortic aneurysm, Eezquiel type A, Anxiety, Acute chest wall pain Instructions: Hypertension Dc Prescriptions: New hydroxyzine pamoate [hydroxyzine pamoate] 25 MG capsule 50 mg PO Q8H PRN (Reason: Anxiety) Qty: 30 RF: 0 No Action cholecalciferol (vitamin D3) [Vitamin D3] 125 mcg (5,000 unit) Tablet 125 mcg PO DAILY RF: 0 aspirin 81 mg Capsule 81 mg PO DAILY RF: 0 acetaminophen 500 mg Tablet 1,000 mg PO Q8 Qty: 0 RF: 0 lidocaine HCl [Lidocaine Viscous] 2 % Solution 5 ml PO TID PRN PRN (Reason: Pain for right cheek) Qty: 0 RF: 0 losartan 100 mg Tablet 100 mg PO DAILY Qty: 0 RF: 0 ascorbic acid (vitamin C) 500 mg Tablet 1,000 mg PO LUNCH Qty: 0 RF: 0 bisacodyl 10 mg Suppository 10 mg GA .PRN X 1 PRN (Reason: Constipation) Qty: 0 RF: 0 Ensure Enlive 0.08 gram-1.5 kcal/mL Liquid 120 ml PO 4X/DAY Qty: 1 RF: 0 ferrous sulfate [FeroSul] 325 mg (65 mg iron) Tablet 325 mg PO DAILY@1200 Qty: 0 RF: 0 gabapentin 100 mg Capsule 200 mg PO 2100 7 Days Qty: 14 RF: 0 hydralazine 10 mg Tablet 10 mg PO Q4H PRN PRN (Reason: Sys>160Dist> 90) Qty: 0 RF: 0 sennosides-docusate sodium [Stool Softener-Stimulant Laxat] 8.6-50 mg Tablet 2 tab PO DAILY Qty: 1 RF: 0 pantoprazole 20 mg Tablet,Delayed Release (Dr/Ec) 20 mg PO BID Qty: 0 RF: 0 magnesium hydroxide 400 mg/5 mL Suspension 30 ml PO .PRN X 1 PRN (Reason: Constipation) Qty: 0 RF: 0 alum-mag hydroxide-simeth [Mag-Al Plus Extra Strength] 400-400-40 mg/5 mL Suspension 30 ml PO Q6H PRN PRN (Reason: chest discomfort) Qty: 0 RF: 0 Mag 64 64 mg Tablet,Delayed Release (Dr/Ec) 128 mg PO BID Qty: 0 RF: 0 menthol-zinc oxide [Calmoseptine] 0.44-20.6 % Ointment 1 applic topical BID Qty: 0 RF: 0 trazodone 50 mg Tablet 50 mg PO QHS Qty: 0 RF: 0 sertraline 50 mg Tablet 50 mg PO DAILY Qty: 0 RF: 0 metoprolol succinate 50 mg capsule,sprinkle,ER 24hr 50 mg PO DAILY Qty: 1 RF: 0 oxycodone 5 mg tablet 5 mg PO Q4H PRN PRN (Reason: pain) 7 Days Qty: 14 RF: 0 apixaban 2.5 mg Tablet 2.5 mg PO BID Qty: 60 RF: 0 Primary Care Provider: Slim Denson Referrals: Slim Denson DO [Primary Care Provider] - (Follow-up regarding primary care and any long-term anxiety-controlled medications) Disposition Disposition: Home, Self Care
[2021-08-16 20:21] VITALS: BP 191/82; PULSE 72; RESP 18; O2SAT 95
[2021-08-16 20:22] LABS: Absolute Lymphocyte Count 1.24 X10^3/uL (0.83-4.51); Absolute Neutrophil Count 2.8 X10^3/uL (2.0-7.7); Basophil# 0.06 X10^3/uL; Basophil% 1.3 % (0-1); Eosinophils% 2.1 % (0-5); Hemoglobin 12.6 g/dL (12.0-15.0); Lymphocyte # 1.24 X10^3/ul (0.83-4.51); Mean Corp Hgb Conc 30.7 g/dL (32-36); Mean Corpuscular Hgb 28.3 pg (27.0-32.0); Mean Corpuscular Volume 91.9 fL (81-99); Mean Platelet Vol. 9.6 fl (6.2-12.0); Monocyte# 0.55 X10^3/uL; Monocyte% 11.5 % (0-10); NRBC Flagged by Analyzer 0 % (0-5); Neutrophil # 2.81 X10^3/uL (2.7-7.7); Neutrophil % 58.9 % (47-70); Platelet Count 277 K/mm3 (150-450); RBC Distribution Width CV 14.6 % (11.6-14.6); RBC Distribution Width SD 49.2 fl (35.1-43.9); Red Blood Count 4.46 M/mm3 (4.2-5.4); White Blood Count 4.8 K/mm3 (4.4-11.0)
[2021-08-16 20:40] LABS: Anion Gap 7 (5-15); BUN 9 mg/dL (7-18); Calcium,Total 9.4 mg/dL (8.5-10.1); Chloride 111 mmol/L (98-107); Creatinine, Serum 0.75 mg/dL (0.55-1.02); EST Glomerular Filtration Rate 85 mL/min (>60); Est Glom Filt Rate - Afr Amer 103 mL/min (>60); Estimated Creatinine Clearance 63.95 ml/min; Glucose 105 mg/dL (74-106); Sodium Level 141 mmol/L (136-145)
[2021-08-16 20:48] LABS: Troponin-I HS (w/2H Reflex) 18 pg/mL (3.0-54.0)
[2021-08-16] MEDS: hydrALAZINE 20 MG/ML Vial IV (21:01)
[2021-08-16 21:21] VITALS: BP 169/88; PULSE 78; RESP 18; O2SAT 98
[2021-08-16 22:13] VITALS: BP 173/74; PULSE 84; RESP 13; O2SAT 98
[2021-08-16] MEDS: cloNIDine HCl 0.1 MG Tablet PO (22:21)
[2021-08-16] MEDS: LORazepam 2 MG/ML Syringe 1 MG IV (22:21)
[2021-08-16 22:26] LABS: Reflex Troponin-HS? (from REC) Y
[2021-08-16 23:00] VITALS: BP 126/105; PULSE 85; RESP 17; O2SAT 96
[2021-08-16 23:06] VITALS: BP 126/105; PULSE 85; RESP 16; O2SAT 96
== END 2021-08-16 23:29 | disposition home or self-care (01) ==
PROVIDERS: Emergency Provider Emergency Medicine; PCP Student in an Organized Health Care Education/Training Program; Visit Provider Emergency Medicine
DX: I10 Essential (primary) hypertension (principal); F41.9 Anxiety disorder, unspecified; Z87.891 Personal history of nicotine dependence; R07.89 Other chest pain
CPT/HCPCS: 71275; 80048; 84484; 85025; 93005; 96374; 96375; 99285; Q9967; A4216

== ENCOUNTER → 2021-12-18 | Outpatient (CLI) | payer OTHER, SELFPAY ==
[2021-12-18 16:07] LABS: Absolute Lymphocyte Count 1.59 X10^3/uL (0.83-4.51); Absolute Neutrophil Count 3.5 X10^3/uL (2.0-7.7); Basophil% 1.7 % (0-1); Eosinophil# 0.06 X10^3/uL; Hematocrit 46.7 % (37-47); Lymphocyte # 1.59 X10^3/ul (0.83-4.51); Lymphocyte % 26.9 % (19-41); Mean Corp Hgb Conc 32.1 g/dL (32-36); Mean Corpuscular Hgb 26.6 pg (27.0-32.0); Mean Corpuscular Volume 82.9 fL (81-99); Mean Platelet Vol. 10.8 fl (6.2-12.0); Monocyte# 0.62 X10^3/uL; Monocyte% 10.5 % (0-10); NRBC Flagged by Analyzer 0 % (0-5); Neutrophil # 3.52 X10^3/uL (2.7-7.7); Neutrophil % 59.7 % (47-70); Platelet Count 238 K/mm3 (150-450); RBC Distribution Width CV 17.2 % (11.6-14.6); Red Blood Count 5.63 M/mm3 (4.2-5.4); White Blood Count 5.9 K/mm3 (4.4-11.0)
[2021-12-18 16:50] LABS: Anion Gap 6 (5-15); BUN 13 mg/dL (7-18); BUN/Creat Ratio 15.6 RATIO (10-20); Calcium,Total 9.2 mg/dL (8.5-10.1); Chloride 103 mmol/L (98-107); Creatinine, Serum 0.84 mg/dL (0.55-1.02); EST Glomerular Filtration Rate 75 mL/min (>60); Est Glom Filt Rate - Afr Amer 91 mL/min (>60); Glucose 85 mg/dL (74-106); Potassium 3.9 mmol/L (3.5-5.1); Sodium Level 138 mmol/L (136-145); T4 Free Direct 0.91 ng/dL (0.76-1.46); Thyroid Stim Hormone (TSH) 4.99 uIU/mL (0.358-3.74)
== END | disposition home or self-care (01) ==
LOC: LAB 13:51
PROVIDERS: PCP Student in an Organized Health Care Education/Training Program; Referring Provider Nurse Practitioner Gerontology; Visit Provider Nurse Practitioner Gerontology
DX: R53.83 Other fatigue (principal)
CPT/HCPCS: 36415; 80048; 84439; 84443; 85025

== ENCOUNTER → 2022-02-01 | Outpatient (CLI) | payer OTHER, SELFPAY ==
--- NOTE | 2022-02-01 14:00 | CR.HP_ITS ---
CR - History & Physical - General Arrival date:: 02/01/22 Arrival time:: 13:45 Date of Referral:: 01/25/22 Date of CR Evaluation:: 02/01/22 Referring Physician: DR HUGO LEHMAN Primary Diagnosis: NON-STEMI MA, S/P HEART VALVE REPLACEMENT, PRESCENCE OF DEFIBRILLATOR - History of Present Cardiac Event Onset Date: Enter Onset Date of cardiac illnesses in Comment field below Acute Myocardial Infarction within 12 months:: Yes - NON-STEMI 07/04/2021 Heart valve replacement or repair:: Yes - AORTIC VALVE REPLACEMENT 07/04/2021 Type of Symptoms:: 07/02/21, WAS TOLD SHE CALLED EMS W/CHEST PAIN SHOULDER AND BACK PAIN AND ENDED UP IN THE EMERGENCY ROOM/HOSPITAL. Interventions with present event:: AORTIC DISSECTION SENT BY EMS TO MAIN - IMPLANTABLE DEFIBRILLATOR DEVICE Were there any complications?: CEREBRAL INFARCTION, UNSPECIFIED - Sleep Disorder Evaluation Hx of Sleep Apnea: Yes Do you snore loudly (louder than talking or can be heard through closed doors)?: Yes Do you often feel tired/ fatigued/ sleepy during daytime?: Yes Has anyone observed you stop breathing during sleep?: Yes History of Hypertension (for STOP score): Yes - PREVIOUS DIAGNOSIS OF CLARKE WITH HOME CPAP UNIT STOP Results: Positive - Medications Home Medications: Ambulatory Orders Medication Instructions Recorded cholecalciferol (vitamin D3) 125 125 mcg PO DAILY Check with 07/02/21 mcg (5,000 unit) tablet (Vitamin primary doctor D3) aspirin 81 mg capsule 81 mg PO DAILY heart health 07/18/21 acetaminophen 500 mg tablet 1,000 mg PO Q8 #0 tabs 08/07/21 losartan 100 mg tablet 100 mg PO DAILY #0 tabs 08/07/21 oxycodone 5 mg tablet 5 mg PO Q4H PRN PRN pain 7 days 08/07/21 #14 tabs sennosides 8.6 mg-docusate sodium 2 tab PO DAILY #1 TAB 08/07/21 50 mg tablet (Stool Softener-Stimulant Laxative) clonidine HCl 0.2 mg tablet 0.2 mg PO TID #180 tabs 08/27/21 gabapentin 400 mg capsule 400 mg PO QHS 08/27/21 hydrochlorothiazide 25 mg tablet 25 mg PO DAILY #30 tabs 09/28/21 ascorbic acid (vitamin C) 1,000 mg 1 g PO DAILY 12/03/21 capsule buspirone 30 mg tablet 15 mg PO TID 12/03/21 duloxetine 60 mg capsule,delayed 60 mg PO DAILY 12/03/21 release ferrous sulfate 325 mg (65 mg 325 mg PO DAILY 12/03/21 iron) tablet,delayed release loratadine 10 mg tablet 10 mg PO DAILY 12/03/21 magnesium oxide 400 mg (241.3 mg 400 mg PO DAILY 12/03/21 magnesium) tablet metoprolol succinate 100 mg 100 mg PO DAILY 12/03/21 tablet,extended release 24 hr - Allergies Allergies/Adverse Reactions: Allergies nitrofurantoin [From Macrobid] Allergy (Verified 12/18/21 13:13) Hives Penicillins [PCN] Allergy (Verified 12/18/21 13:13) Swelling amlodipine Adverse Reaction (Verified 12/18/21 13:13) Other ciprofloxacin Adverse Reaction (Verified 12/18/21 13:13) Other erythromycin base [Erythromycin Base] Adverse Reaction (Verified 12/18/21 13:13) Upset Stomach lisinopril Adverse Reaction (Verified 12/18/21 13:13) Other sulfamethoxazole [From Bactrim] Adverse Reaction (Verified 12/18/21 13:13) Upset Stomach trimethoprim [From Bactrim] Adverse Reaction (Verified 12/18/21 13:13) Upset Stomach Advanced Directives - Advanced Directives Power of Lehr Operator: Yes Living Will: Yes Advance Directives Information Provided: No Advance Directives on File: Yes - PATIENT IS NOT POSITIVE THEY ARE ON FILE. DNR Order?:: No - MOLST See MOLST form: No Past Medical History - Covid-19 Screening Fever: No - HAD COVID-19 IN FEBRUARY 2021 LONG-HAUL SYNDROME Unexplained muscle aches: No Current respiratory symptoms: No Upper respiratory infections symptoms: No Gastro-intestinal symptoms: No Prb-Bobq-Qybbtc symptoms: No Has tested positive for COVID-19 in last 30 days: No Date of testin02/01/22 - NO VACCINATIONS RECEIVED. Had contact w/person w/symptoms or Covid-19 (+) last 14 days: No Has High Risk Exposures ID'd by Health dept/Inf Control team: No 65 years or older:: No Lives in Assisted Living facility:: No Has a chronic lung disease or moderate to severe asthma:: No Has a serious heart condition:: No Immunocompromised:: No Severely obese (Body Mass Index of 40 or higher):: No Diabetic:: No Has chronic kidney disease undergoing dialysis:: No Has liver disease:: No - Past Medical Illness Medical History: Past Medical History (Last Reviewed 12/18/21 @ 13:07 by Amy Sorensen NP, INTERNAL AFFAIRS INVESTIGATOR-C) Acute blood loss anemia D62 Anxiety F41.9 Anxiety and depression F41.9, F32.9 Arthritis M19.90 osteoarthritis Cerebellar infarction Onset Date: 07/13/21 I63.9 Likely subacute infarcts in the bilateral cerebellar hemisphere and right lateral thalamus/posterior limb of the internal capsule without significant mass effect or hemorrhagic transformation within limitations of the examination. per MRI 07/13/21 Chronic anemia D64.9 Attributed to iron deficiency Cognitive dysfunction F09 this existed prior to the dissection and strokes due to TBI and is worse now COVID-19 U07.23 JAN 2021 and she had PNA. Went home on O2 but is no longer wearing it. DVT (deep venous thrombosis) Onset Date: 07/14/21 I82.409 left arm post midline Endometrial cancer C54.1 S/P radical hysterectomy Essential hypertension I10 Former tobacco use Z87.891 quit in 1995 Generalized anxiety disorder F41.1 GERD (gastroesophageal reflux disease) K21.9 Hiatal hernia K44.9 History of aortic dissection Onset Date: 07/04/21 Z86.79 into the coronary ostia and extending into the abd aorta History of IBS Z87.19 History of traumatic brain injury Z87.820 in 2016 Infarction of left basal ganglia I63.9 Insomnia G47.00 This started after the TBI in 2016 Intracerebral bleed due to trauma S06.369A 2016 when she fell backward while sitting in a chair and struck her head........she had 1 seizure within 24H of the fall and she has not had another seizure since. She is not on an AED. Iron deficiency E61.1 Left upper extremity deep vein thrombosis I82.622 Major depressive disorder, recurrent severe without psychotic features F33.2 Neurogenic bladder N31.9 She straight cath's herself. Technique is not always good/cleanly. Non-sustained ventricular tachycardia I47.2 Nonobstructive atherosclerosis of coronary artery I25.10 CLARKE (obstructive sleep apnea) G47.33 severe on sleep study 12/23/20. 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 Urinary retention R33.9 requiring self-catheterization Ventricular tachycardia I47.2 - Past Surgical History Surgical History: Past Surgical History (Last Reviewed 12/18/21 @ 13:07 by Amy Sorensen INTERNAL AFFAIRS INVESTIGATOR, INTERNAL AFFAIRS INVESTIGATOR-C) H/O umbilical hernia repair Z98.890, Z87.19 H/O: hysterectomy Onset Date: 2005 Z98.890, Z90.710 History of aortic valve replacement Onset Date: 07/04/21 Z95.2 History of cholecystectomy Z90.49 History of implantable cardiac defibrillator (ICD) Onset Date: 06/18/20 Z95.810 sustained MMVT History of inguinal hernia repair Z98.890, Z87.19 History of left heart catheterization Onset Date: 06/16/20 Z98.890 History of radiofrequency ablation (RFA) procedure for cardiac arrhythmia Onset Date: 07/16/21 Z98.890 RFA recurrent ventricular tachycardia 07/16/21 Hx of breast reduction, elective Z98.890 Hx of repair of dissecting thoracic aortic aneurysm, Ezequiel type A Onset Date: 07/04/21 Z98.890, Z86.79 Repair Type A aortic dissection, root replacement #27 Konect, ,ascending and arch replacement 30 mm Gelweave tube graft with single side arm, Frozen elephant trunk Wilburn CTAG 26 X 26 x 10, Left subclavian artery stent 12 x 40 fluency plus, BSAFER.. Reconstruction right coronary artery ostium and left main ostium. 07/04/2021 Status post club foot correction at Z87.76 present at , multiple surgeries in the past Surgical History: noncontributory, - - Family History Summary Family History: Family History (Last Reviewed 12/18/21 @ 13:07 by Amy Sorensen NP, INTERNAL AFFAIRS INVESTIGATOR-C) Mother Cancer Hx endometrial CA. Hypertension Father Myocardial infarction Heart disease Hypertension Grandfather CAD (coronary artery disease) Diabetes Daughter Seizures Social History - Smoking History Smoking Status: Former smoker Hx Tobacco Use: No Hx Smoking Exposure: No - Alcohol Use Alcohol Usage: Yes - OCCASIONAL USE - Substance Abuse Hx Substance Use: No - Occupation Occupation (List type of work in comments):: Unemployed - DISABILITY - Hobbies, Recreation, Social Activities Hobbies: Sewing - SCRAPBOOKING, Reading - FINDING HERSELF RE-READING MATERIAL, Other Recreational Activities: I am able to engage in a few activities, I can hardly do any recreational activities Social Environment - Status Marital Status: - Current Living Arrangements Living Environment:: Spouse - Children How many children do you have?: 3 - DAUGHTER Do any of your children live nearby?: Yes - Safety Do you feel safe in your surroundings?: Yes - LONG i HAVE USE OF MY WALKER - Assistance Do you need any assistance at home?: HELPS Review of Systems - Review of Systems Hints: Right click = Denies (Slash). Left click = Reports ([place]) Review of Present Symptoms: Reports: Shortness of Breath with Exertion, Operative Discomfort - MIDSTERNAL INCISION STILL HURTS, Dizziness/Lightheadedness - EVERY SO OFTERN BUT RARE PERIODS., Fatigue, Heart Arrhythmia/Irregularities - PACED ATRIAL RHYTHM, Appetite - Normal, Sleep - Normal - BUT DOES FIND HERSELF WAKING UP ALOT IN THE MIDDLE OF THE NIGHT. Denies: Shortness of Breath at Rest, Wound Healing, Appetite - Special Diet - CUT BACK ON PREPARED FODS, LESS ADDED SALT - Pain Is Patient Pain Free?: No Pain Location: back - CHRONIC BACK PAIN Pain Level: 5/10 Risk Factor Assessment - Chief Complaint Chief Complaint: 56 YR OLD FEMALE PATIENT OF DR. LEHMAN WHO PRESENTS TO CR TODAY FOLLOWING RECENT NSTEMI MA AND AORTIC VALVE REPLACEMENT. PATIENT HAD A CEREBRAL INFARCTION WITH SOME RESIDUAL EFFECT RESULTING IN COGNITIVE DYSFUNCTION AND SOME PHYSICAL DISABILITY TO WHERE SHE USES A WHEELCHAIR AND WALKER FOR ASSISTANCE IN AMBULATION LONG DISTANCES. - Vital Signs Temperature: 97.8 F Respiratory Rate: 16 Pulse Ox: 97 Blood Pressure: 141/77 - MECHANICAL - Pulse Pulse Rate: 53 Pulse Rhythm: Regular - Hypertension How long have you been treated?: 04/2020 WHEN SHE HAD THE PACEMAKER IMPLANTED On medication(s)?: YES Blood Pressure Sitting - Left Arm: 141/77 - MECHANICAL - Stress Stress: Recent, Work-related, Home/Family - Blood Cholesterol/Lipids Total Cholesterol (mg/dL) Goal = less than 200 mg/dL: 179 HDL Cholesterol (mg/dL) Goal = less than 40 mg/dL: 63 LDL Cholesterol (mg/dL) Goal = less than 70 mg/dL: 91 Triglycerides (mg/dL) Goal = less than 150 mg/dL: 127 - Diabetes Nutrition Referral for Diabetes: No - Obesity Height: 5 ft 1 in Weight:: 177 lb Weight in Pounds: 177.0 lbs Weight Source: Estimated by Patient Body Mass Index (BMI): 33.4 Nutritional Referral for Obesity: Yes - Physical Inactivity Physical Inactivity: None - Risk Stratification Risk Guidelines: Lowest Risk: Risk Factor for Smoking, Risk Factor for Dyslipidemia, Risk Factor for Diabetes, Moderate Risk: Risk Factor for Hypertension - 141/77 W/MEDICATIONS, Risk Factor for Depression, Highest Risk: Risk Factor for Obesity, Risk Factor for Sedentary Lifestyle - Family History Family History: Family History (Last Reviewed 12/18/21 @ 13:07 by Amy Sorensen NP, INTERNAL AFFAIRS INVESTIGATOR-C) Mother Cancer Hypertension Father Myocardial infarction Heart disease Hypertension Grandfather CAD (coronary artery disease) Diabetes Daughter Seizures Motivation - Motivation to Participate On a scale of 1 to 10, how prepared are you to commit to attending program?: 8 What do you see as barriers to successfully being able to complete the program?: LEGS WEAKNESS, SAW NEUROLOGY THIS AM, SCHEDULED FOR AN MRI, VASCULAR SCAN What do you see as the benefits of succesfully completing the program? In other words, what do you hope to get out of participating in the program?: GET BETTER, LESS STRESS, BUILDING UP THE HEART. Are there issues you are dealing with that will interfere with completing the program?: LEG PAIN, MUSCLE WEAKNESS Do you have a spouse or signficant other, family or friends who will help support you to complete the program?: YES.
--- NOTE | 2022-02-01 14:00 | PCM.CR.ITP ---
Diagnosis - General Information Admitting Diagnosis: NON-ST ELEVATED MYOCARDIAL INFARCTION, AORTIC VALVE REPLACEMENT, IMPLANTABLE DEFIBRILLATOR DEVICE 07/04/2021. Personal Learning Style:: Audio/Visual, Written Barriers to Learning: Cognitive/Learning Impairment - RESULTING FROM THE CEREBRAL INFARCTION 07/13/2021, Vision Impairment Stage of change r/t lifestyle modifications:: Action Gave educational material for:: Treating Heart Disease, Emotions & Heart Disease, Stress Management & Relaxation, Sleep Disorders & Heart Disease, How The Heart Works, What it means to have Heart Disease, How Coronary Artery Disease is Diagnosed, Heart Procedures, What Heart Medications Do, Risk Factors & Modifications, Living an Active Life, Nutrition - Education/Goals Individual Counseling: Initial Assessment: Abnormal Cholesterol Levels, High Blood Pressure, Overweight/Obesity Cardiac Rehabilitation Goals: 1. Maintain the individual as the primary focus of care. 2. To improve the patient's quality of life. 3. Identification of cardiac risk factors and provide cardiac risk factor management. 4. Enhance the psychosocial status of the patient. 5. Reconditioning enough to allow the patient to resume customary activities. 6. Control symptoms of cardiac disease Personal Goals: Initial Assessment: Improve management of stress and emotions, Improve energy level, Improve knowledge of cardiac disease, Improve muscle strength and endurance, Improve diet and eating habits (eat healthier), Control risk factors (learn risk factor modification) Scale for measuring improvement of personal goals: Enter appropriate number in Comments. 2 = Unchanged. 3 = Slightly Better. 4 = Moderate Improvement. 5 = Met my Goal Exercise - Initial Assessment - Visit Date of Eval: 02/01/22 Session #:: 0 - PRE-CARDIAC REHAB EVALUATION Mets: Pre-: >5 METS for 30 minutes by discharge - Physician Prescribed Exercise Modalities: NuStep, SciFit, Lateral Quality Assurance Representative Frequency: 3x/week for 12 weeks [36 sessions] Intensity: Resting heart rate plus 20 to 30 beats/ minute Duration: 30 - 45 minutes Target Heart Rate:: 3 DAY AVG. REST + 30 BMP EKG Type: ELECTRONICALLY ATRIAL PACED RYTHM Current Physical Activity or Exercising minutes: 0 - Outcomes & Goals Goals:: Verbalizes understanding of THR, RPE & goal METS by session 6, Documents in home exercise log/reports 30 min aerobic 5 day/wk by DC, Demonstrates accurate pulse taking by DC - Intervention & Plan Exercise Program Goals: Instruct on personal THR & RPE, Instruct on MET level & personal MET goal, Show patient to take own pulse /validate performance until accurate, Instruct on home exercise - Physical Activity Home Exercise Physical Activity - Home Exercise: Safe Exercise, Warm-up, Self-monitoring, Cool-Down, Home Exercise > 30 min Daily, Sitting Time <3 hours/daily - Outcomes & Goals Outcomes/Goals: Demonstrates correct Warm-up/exercise Cool-Down (S3) if = 2.5 METs, Verbalizes symptoms of exercise intolerance by Session 3 (S3), Demonstrate safe equipment use (S3) & follows exercise prescrition (6) - Intervention & Plan Plan/Intervention: Instruct warm-up & cool-down if exercising at > 2 METs, Instruct on symptoms of exercise intolerance & actions to take, Instruct & monitor on saf, Assess intial functional capacity & safety risk Nutrition - Initial Assessment - Program Goals Nutrition Program Goals: LDL <100 optimal. 100 - 129 Near optimal. 130 - 159 Borderline High. 160 - 189 High. Total Cholesterol <200 desirable. 200 - 239 Borderline High. >/= 240 High. HDL < 40 Low >/=60 High. Triglycerides <150 desirable. <199 optimal. VlDL 5 - 40. HgbA1C <7%. BMI <25 Patient has diagnosis of Hyperlipidemia (ICD E78)?: Yes - Visit Date of Assessment:: 02/01/22 Session #:: 0 - PRE-CARDIAC REHAB EVALUATION - Cholesterol/Lipids (Other Core Measures) Triglycerides (mg/dL): 127 Total Cholesterol (mg/dL): 179 LDL Cholesterol (mg/dL): 91 HDL Cholesterol (mg/dL): 93 Determine presence & major risk factors that modify LDL goal: Hypertension or hypertensive medication, Family history of premature CHD in Male < 55 years: female <65 yearsFa, Age men > 45 years; women >/= 55 years Outcomes/Goals: Pt IDs own risk factors & lifestyle modifications by Session 10, Verbalizes symptoms of angina & response by session 3., Pt independently manages Intervention/Plan: Instruct on personal lipid levels & lipid goals/NCEP guidelines, Instruct on cholesterol Referral to dietitian:: Yes - MEDICAL NUTRITON / WHY WEIGHT PROGRAM - Diabetes (Other Core Measures) Diabetes Type: Not Applicable Fasting blood glucose:: 85 - PRE-DIABETIC DIAGNOSIS - Weight Mgt (Other Care) Not Applicable: No Height: 5 ft 1 in Weight:: 177 lb BMI: 33.4 Diagnosis Overweight/Obesity BMI> 30% ICD-10 E66: Yes Diagnosis High BMI/Morbid Obesity BMI> 35% ICD-10 Z68: No Outcomes/Goals: Pt sets, maintains & shows weight loss goal & trend during rehab Intervention/Plan: Instruct on ideal BMI & set weight loss goal w/patient, Assist pt to ID & incorporate diet changes for weight loss by S9, Refer to Structured Weight Loss program as appropriate, Encourage goal of using 250-300dcal per session for weight loss - Healthy Eating Habits Will attend diet classes:: Yes Outcomes/Goals:: Consume diet rich in vegs,fruits,whole grain/high fiber,fish,lean meat, Limit sat/trans fats,cholesterol & added salts & sugars Intervention/Plan:: Assess current eating habits - Education Gave educational materials for:: Healthy eating Nutrition - 30-Day Assessment Nutrition - 60-Day Assessment Nutrition - 90-Day Assessment Nutrition - Final Assessment Core - Initial Assessment - Visit Date of Eval: 02/01/22 Session #:: 0 - PRE-CARDIAC REHAB EVALUATION - Medication Compliance Preventative Medication(s):: Aspirin, Statin/lipid, Beta adilene H/O mental health issues: depression, anxiety, or addiction?: No Doesn?t believe in the benefits of treatment?: No Believes medications are unnecessary or harmful?: No Has a concern about medication side effects?: No Expresses concern over the cost of medications?: No Outcomes/Goals: Verbalizes medications,desired effect & common side effects @ DC, Pt self-reports following medication regimen, Keeps card in wallet w/medications listed by DC Interventions/plans: Instruct on medication effects & side effects, Review medication list w/patient every two weeks, Instruct importance of taking meds as ordered & assist problem solving - Tobacco Use Tobacco Use: Non-smoker - Hypertension Resting Blood Pressure:: 141/77 - MECHANICAL BP [place] [employer] Hypertension Guidelines: [place] [employer] Hypertension Guidelines. Normal BP Less than 120/80. Elevated BP 120/80. Hypertension Stage 1: BP 130-139/80-89. Hypertesnion Stage 2: BP 140 or higher/90 or higher. Hypertension Crisis: BP higher than 180/120 Outcomes/Goals: Able to verbalize/achieve optimal blood pressure <130/80, Incorporates diet changes & exercise for blood pressure control by DC Interventions/plan: Instruct on optimal blood pressure, hypertension & medications, Instruct on effects of sodium, alcohol, stress, exercise &hypertension - Tobacco Cessation Referral Smoking Cessation Referral:: No Individual Education/Counseling:: No Education Schedule Given:: Yes Core - 30-Day Assessment Core - 60-Day Assessment Core - 90 Day Assessment Core - Final Assessment Psychosocial - Initial Assess - VIsit Date of Eval: 02/01/22 Session #:: 0 - PRE-CARDIAC REHAB EVALUATION Not Applicable: Yes History of previous Mental disease:: No - Psychosocial Test Tool Used:: [employer] Power QOL Cardiac, PHQ-9 Questionnaire phq-9 Severity: Severity. 1-4 Minimal Depression. 5-9 Mild Depression. 10-14 Moderate Depression. 15-19 Moderately Sever Depression. 20-27 Severe Depression. Rule: - Referral to Behavioral Health PS - Interventions: Yes Attend Stress Management Classes, No Referral to Behavioral Health if PHQ-9 score >9:, No Referral to [facility], No Referral to Physician if PHQ-9 if score is 5-9: - Outcomes/Goals: See list Psychosocial Outcomes/Goals:: ID's personal stressors & 2 strategies to manage stress by discharge - Intervention/Plan: See List Interventions/Plan:: Assess stressors,coping strategies & signs of derpression on admission, Instruct/assist pt to develop coping & personal stress Mgt strategies, Instruct patient to recognize signs & symptoms of depression, Instruct patient to recog Psychosocial - 30-Day Assess Psychosocial - 60-Day Assess Psychosocial - 90-Day Assess Psychosocial - Final Assessmen Patient Health Questionnaire Initial Assessment 1. Little interest or pleasure in doing things: Several days 2. Feeling down, depressed, or hopeless: Several days 3. Trouble falling or staying asleep, or sleeping too much: More than half the days 4. Feeling tired or having little energy: More than half the days 5. Poor appetite or overeating: Several days 6. Feeling bad about yourself -- or that you are a failure or have let yourself or your family down: Several days 7. Trouble concentrating on things, such as reading the newspaper or watching television: Several days 8. Moving or speaking so slowly that other people could have noticed. Or the opposite - being so fidgety or restless that you have been moving around a lot more than usual: Nearly every day 9. Thoughts that you would be better off , or of hurting yourself in some way: Not at all How difficult have these problems made it for you to do your work, take care of things at home, or get along with other people?: Very difficult - DIAGNOSED WITH ACUTE DEPRESSION/ANXIETY DISORDER WITHOUT SUICIDAL TENDANCIES Total Score: 12 FRANCISCO-Q SV Test - Statements CAD is a disease of the arteries in the heart: False Examples of risk factors for heart disease: True Angina is chest pain or discomfort: I Don't Know The benefits of resistance training include: True Eating more meat and dairy products: False Anti-platelet medications such as aspirin are important: True The only effective way to manage stress: False An exercise warm-up slowly increases heart rate: True Prepared, processed foods usually have high sodium: True Depression is common after a heart attack: True The statin medications lower cholesterol: I Don't Know To control blood pressure, lower the amount of sodium: True If someone gets chest discomfort during walking: False Transfats are partially hydrogenated vegetable oils: True Sleep apnea that is not treated increases the risk: False To control cholesterol, one should become a vegetarian: False Someone knows if he/she is exercising at the right level: True Diabetes cannot be prevented with exercise & health eating: False Stress is a large risk for heart attack: True A diet that can help lower blood pressure is rich in: True - Total Score Total Correct Responses: 18 Self-Efficacy Initial Assessment We would like to know how confident you are in doing certain activities. Please select your confidence level for:: Select your confidence level for the following using the scale 1-10 where 1 is not at all confident and 10 is totally confident. Your score is the average of all 6 responses. Fatigue: How confident are you that you can keep the fatigue caused by your disease from interfering with the things you want to do? Select Number: 5 Physical Discomfort or Pain: How confident are you that you can keep the physical discomfort or pain of your disease from interfering with the things you want to do? Select Number: 6 Emotional Distress: How confident are you that you can keep the emotional distress caused by your disease from interfering with the things you want to do? Select Number: 6 Other Symptoms or Health Problems: How confident are you that you can keep other symptoms or health problems from interfering with the things you want to do? Select Number: 6 Different Tasks and Activities: How confident are you that you can do the different tasks and activities needed to manage your health condition so as to reduce your need to see a doctor? Select Number: 4 Medication: How confident are you that you can do things other than just taking medication to reduce how much your illness affects your everyday life? Select Number: 5 Total Score:: 5 Nutrition Survey - Nutrition Survey Initial Have you lost >10 lbs over the past 2 months without trying?: No Are you following a special diet at home for diabetes, low fat, or low salt?: No Are you interested in meeting with a dietitian for help understanding your diet?: Yes Do you eat less than 3 meals a day?: Yes Do you eat fatty meats (kaur, sausage, ribs, etc), fried foods, desserts, large amounts of salad dressings, margarine, butter, or cheese most days?: Yes Do you have food allergies? [Enter types in comment field]: No Do you eat in restaurants more than 3 times a week?: Yes Do you season food with salt, seasoning salt, or garlic salt?: Yes Do you used canned, boxed, frozen meals, or soups, seasoning packets?: No Total Score:: 5
[2022-02-01 14:43] VITALS: BP 141/77; PULSE 53; RESP 16; TEMP 36.6; O2SAT 97; BMI 33.4
[2022-02-01 15:24] VITALS: BP 141/77; BMI 33.4
== END | disposition home or self-care (01) ==
LOC: CR 13:48
PROVIDERS: PCP Student in an Organized Health Care Education/Training Program; Visit Provider Internal Medicine Cardiovascular Disease
DX: I21.4 Non-ST elevation (NSTEMI) myocardial infarction (principal); Z95.810 Presence of automatic (implantable) cardiac defibrillator; Z95.2 Presence of prosthetic heart valve

== ENCOUNTER 2022-11-24 19:30 | Observation (INO) | payer OTHER, SELFPAY ==
[2022-02-01 15:24] VITALS: BMI 33.4
[2022-11-24] VITALS (8 sets, daily range): BP systolic 156–185; BP diastolic 74–99; PULSE 60–70; RESP 15–18; TEMP 36.4–36.8; O2SAT 93–99; BMI 38.9; BMI 38.8
--- NOTE | 2022-11-24 19:57 | EKG12_ITS ---
Test Reason : DYSRHYTHMIA Blood Pressure : / mmHG Vent. Rate : 064 BPM Atrial Rate : 064 BPM P-R Int : 136 ms QRS Dur : 086 ms QT Int : 532 ms P-R-T Axes : 024 -17 -07 degrees QTc Int : 548 ms Normal sinus rhythm Low voltage QRS Nonspecific T wave abnormality Abnormal ECG Confirmed by CAITLYN GOODWIN, VAMSI ([id number]), senior editor СЕРГЕЙ VALDERRAMA ([id number]) on 11/26/2022 1:29:04 PM Referred By: JULIA Confirmed By:JALIL BRADY MD
--- NOTE | 2022-11-24 19:58 | EX.ED.DYSGE1 ---
HPI History of Present Illness Chief Complaint: Allergic Reaction Detail of Chief Complaint: Slurred speech and numbness to right side of tongue and right lower lip Informant: patient Narrative Narrative: Patient presents to the emergency department with sudden onset of numbness to right side of tongue and right lower lip that started suddenly around 7:15 PM. Patient per her also had some slurred speech at that time that seemed to resolve. She denies headache. She denies weakness to the extremities. Patient states that she had a keloid injected earlier today and last time she had a keloid injected she had some sort of an allergic reaction with some swelling to her face but they could not definitively tell what may have caused her symptoms that she had had some different foods in a different medication that it started. Patient presented thinking she was having allergic reaction tonight to the keloid medicine. Patient has had prior history of traumatic stroke and prior DVT. She is not currently anticoagulated. Patient has had a aortic aneurysm dissection repair in the past and has an implantable cardioverter. [facility] Medical History Acute blood loss anemia Anxiety Anxiety and depression Arthritis Cerebellar infarction (07/13/21) Chronic anemia Cognitive dysfunction COVID-19 DVT (deep venous thrombosis) (07/14/21) Endometrial cancer Essential hypertension Former tobacco use Generalized anxiety disorder GERD (gastroesophageal reflux disease) Hiatal hernia History of aortic dissection (07/04/21) History of IBS History of traumatic brain injury Infarction of left basal ganglia Insomnia Intracerebral bleed due to trauma Iron deficiency Left upper extremity deep vein thrombosis Major depressive disorder, recurrent severe without psychotic features Neurogenic bladder Non-sustained ventricular tachycardia Nonobstructive atherosclerosis of coronary artery CLARKE (obstructive sleep apnea) Peripheral neuropathy Physical debility Prediabetes Radial artery thrombosis, left Right inguinal hernia SBO (small bowel obstruction) Seizure disorder Seizures Sustained ventricular tachycardia Tobacco dependence due to cigarettes, in remission Urinary retention Ventricular tachycardia Home Medications cholecalciferol (vitamin D3) 125 mcg (5,000 unit) tablet (Vitamin D3) 125 mcg PO DAILY Check with primary doctor 07/02/21 [History Last Taken Unknown] aspirin 81 mg capsule 81 mg PO DAILY heart health 07/18/21 [History Last Taken Unknown] losartan 100 mg tablet 100 mg PO DAILY #0 tabs 08/07/21 [Rx Last Taken Unknown] hydrochlorothiazide 25 mg tablet 25 mg PO DAILY #30 tabs 09/28/21 [Rx Last Taken Unknown] ascorbic acid (vitamin C) 1,000 mg capsule 1 g PO DAILY 12/03/21 [History Last Taken Unknown] duloxetine 60 mg capsule,delayed release 60 mg PO DAILY 12/03/21 [History Last Taken Unknown] ferrous sulfate 325 mg (65 mg iron) tablet,delayed release 325 mg PO DAILY 12/03/21 [History Last Taken Unknown] loratadine 10 mg tablet 10 mg PO DAILY 12/03/21 [History Last Taken Unknown] metoprolol succinate 100 mg tablet,extended release 24 hr 100 mg PO DAILY 12/03/21 [History Last Taken Unknown] clonidine HCl 0.2 mg tablet 0.2 mg PO BID 04/13/22 [History Last Taken Unknown] buspirone 30 mg tablet 15 mg PO BID 09/28/22 [History Last Taken Unknown] fluticasone propionate 50 mcg/actuation nasal spray,suspension (Flonase Allergy Relief) 1 spray intranasal DAILY 09/28/22 [History Last Taken Unknown] gabapentin 400 mg capsule 400 mg PO QHS 09/28/22 [History Last Taken Unknown] magnesium oxide 400 mg (241.3 mg magnesium) tablet 400 mg PO BID 09/28/22 [History Last Taken Unknown] saw palmetto-pumpkin seed oil 160 mg capsule cap PO 09/28/22 [History Last Taken Unknown] sennosides 8.6 mg-docusate sodium 50 mg tablet (Stool Softener-Stimulant Laxative) 2 tab PO DAILY PRN 09/28/22 [History Last Taken Unknown] turmeric curcumin 1 cap PO DAILY 09/28/22 [History Last Taken Unknown] zinc sulfate 50 mg zinc (220 mg) capsule 50 mg PO DAILY 09/28/22 [History Last Taken Unknown] Allergy/AdvReac Type Severity Reaction Status Date / Time nitrofurantoin Allergy Hives Verified 11/24/22 19:39 [From Macrobid] Penicillins [PCN] Allergy Swelling Verified 11/24/22 19:39 amlodipine AdvReac Other Verified 11/24/22 19:39 ciprofloxacin AdvReac Other Verified 11/24/22 19:39 erythromycin base AdvReac Upset Verified 11/24/22 19:39 [Erythromycin Base] Stomach lisinopril AdvReac Other Verified 11/24/22 19:39 sulfamethoxazole AdvReac Upset Verified 11/24/22 19:39 [From Bactrim] Stomach trimethoprim [From Bactrim] AdvReac Upset Verified 11/24/22 19:39 Stomach Family History Mother Cancer Hx endometrial CA. Hypertension Father Myocardial infarction Heart disease Hypertension Grandfather CAD (coronary artery disease) Diabetes Daughter Seizures Surgical History H/O umbilical hernia repair H/O: hysterectomy (2005) History of aortic valve replacement (07/04/21) History of cholecystectomy History of implantable cardiac defibrillator (ICD) (06/18/20) History of inguinal hernia repair History of left heart catheterization (06/16/20) History of radiofrequency ablation (RFA) procedure for cardiac arrhythmia (07/16/21) Hx of breast reduction, elective Hx of repair of dissecting thoracic aortic aneurysm, Ezequiel type A (07/04/21) Status post club foot correction at Social History adopted: No household members: spouse housing: house number of children: 2 current occupational status: employed 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 She had seizures. Smoking Status: Former smoker how long ago did patient quit smoking: She quit smoking in 1995 alcohol intake: current alcohol intake frequency: holidays/special occasions only substance use type: does not use ROS ROS ED Review of Systems ROS Unobtainable: other Constitutional Constitutional ED: Reports lethargy; Denies chills, fever(s), sweats or weight loss Eyes Eyes: Denies blurry vision, change in vision or diplopia ENT ENT ED: Denies rhinorrhea or sore throat Cardiovascular Cardiovascular: Denies chest pain, orthopnea or racing heartbeat Respiratory/Chest Respiratory/Chest: Denies cough, dyspnea, dyspnea on exertion, orthopnea or sputum Gastrointestinal Gastrointestinal: Denies abdominal pain, diarrhea, nausea or vomiting Genitourinary Genitourinary ED: Denies dysuria, hematuria or urinary frequency Musculoskeletal Musculoskeletal: Denies arthralgias, back pain, myalgias or neck pain Integumentary Denies abscess, Abrasions or rash Neurologic Neurologic: Reports other Details: Paresthesias to tongue and right lower limb ; Denies headache(s) or weakness Psychiatric Psychiatric: Denies anxiety, depression or suicidal thoughts Endocrine Endocrinology: Denies polydipsia, polyphagia or polyuria Hematologic/Lymphatic Hematologic/Lymphatic: Denies easy bleeding, easy bruising or lymphadenopathy Allergic/Immunologic Allergic/Immunologic ED: Denies mouth swelling, tongue swelling or urticaria EXAM Physical Exam Const Vital Signs: 11/24/22 19:34 11/24/22 19:57 11/24/22 20:36 Temperature 97.6 F L Temperature Source Temporal Pulse Rate 60 70 Respiratory Rate 15 18 Blood Pressure 159/74 H 156/99 H Blood Pressure Mean 102 118 Pulse Ox 99 97 94 Oxygen Delivery Method Room Air Room Air Room Air Positive well nourished and well developed General Appearance ED: well developed and NAD HEENT Reports TM's clear and moist mucous membranes normocephalic and atraumatic; Negative for trauma or tenderness Tympanic Membrane ED: Yes TM's clear Eyes PERRL and EOMs intact bilaterally General Eye ED: Negative for pale conjunctiva or scleral icterus Neck no lymphadenopathy, supple and no JVD General: Negative for tenderness Chest Wall inspection of chest normal and palpation of chest normal Chest: Negative for tenderness Resp normal respiratory effort and clear to auscultation bilaterally Effort and Inspection: Negative for respiratory distress or pain with movement Auscultation: Negative for rhonchi, wheezes or diminished lung sounds Cardio regular rate, regular rhythm, S1 normal heart sound, S2 normal heart sound and no murmurs Peripheral Pulses: pulses 2+ throughout GI normal to inspection, nondistended, normoactive bowel sounds, soft to palpation, non-tender, non-distended and no masses Back/Spine no CVA tenderness and no thoracic nor lumbar tenderness Extremity normal to inspection General Extremety ED: Negative for edema General Extremity: Negative for edema Neuro oriented x3, CN's II-XII intact bilaterally and gait normal Neuro Narrative: NIH is a 1 for paresthesia to right bottom lip and tongue Sensorium / Orientation: awake, alert, oriented to person, oriented to place and oriented to time Motor Exam: strength 5/5 throughout and strength abnormal Psych mental status grossly normal Skin no rashes or lesions noted and no wounds MDM MDM MDM Narrative Medical decision making narrative: Patient presents with numbness to the right side of tongue and right lower lip. Concern for stroke. Stroke team was called after I evaluated the patient. I feel allergic reaction is less likely as there is no rash or edema or other signs of allergic reaction. Patient was evaluated by stroke neurologist and was not felt to be a candidate for thrombolytics. I am in agreement. CTA of the head and neck was normal. CT scan of the brain without contrast showed chronic involutional changes and small lacunar infarcts otherwise nothing acute. CBC with differential was unremarkable. Chemistries unremarkable. Troponin normal at 4. EKG obtained on arrival shows sinus rhythm with a rate of [address] changes. It was recommended by stroke neurologist that if CTA was negative patient to be admitted for completion of stroke work-up including MRI. Discussed case with hospitalist will evaluate patient for admission. Lab Data Attestation: I reviewed the patient's lab results. Labs: Laboratory Results - last 24 hr 11/24/22 11/24/22 19:58 20:00 WBC 5.5 RBC 5.60 H Hgb 15.7 H Hct 48.8 H MCV 87.1 MCH 28.0 MCHC 32.2 RDW Std Deviation 44.9 H RDW Coeff of Love 14.1 Plt Count 229 MPV 10.2 Immature Gran % (Auto) 0.200 Neut % (Auto) 54.1 Lymph % (Auto) 33.5 Clay % (Auto) 8.2 Eos % (Auto) 2.2 Baso % (Auto) 1.8 H Absolute Neuts (auto) 3.0 Absolute Lymphs (auto) 1.84 Nucleated RBC % 0 PT 12.5 INR 0.9 APTT 27.2 Sodium 139 Potassium 3.5 Chloride 105 Carbon Dioxide 31.0 Anion Gap 3 L BUN 17 Creatinine 1.09 H Estim Creat Clear Calc 43.49 Est GFR (MDRD) Af Amer 67 Est GFR (MDRD) Non-Af 55 L BUN/Creatinine Ratio 15.6 Glucose 137 H Calcium 9.3 Troponin I High Sens 4 POC Glucose 139 H Radiography Diagnostic Testing: Clinical Impression(s) from Imaging Studies Brain CT 11/24/22 20:30 IMPRESSION: 1. Scattered areas of remote infarct and minimal encephalomalacic changes including LEFT frontal lobe, and the cerebellar hemispheres greater on the RIGHT than LEFT. 2. No intracranial mass, hemorrhage or acute territorial infarct. 3. No radiographically significant sinus disease. Electronically Signed: Charlie Padilla MD at 20:43 EDT , ADDENDUM: 11/24/222051 IMPRESSION: 1. Scattered areas of remote infarct and minimal encephalomalacic changes including LEFT frontal lobe, and the cerebellar hemispheres greater on the RIGHT than LEFT. 2. No intracranial mass, hemorrhage or acute territorial infarct. 3. No radiographically significant sinus disease. N.B. : The above Results were Read Back by Charlie Padilla MD to David Wagner DO, and understanding confirmed on 11/24/2022 20:45:28 (ET). Electronically Signed: Charlie Padilla MD at 20:43 EDT , Head/Neck CTA 11/24/22 20:30 IMPRESSION: No large vessel occlusion, aneurysm or significant stenosis. Electronically Signed: Tenzin Mckeon DO at 21:16 EDT , ADDENDUM: 11/24/222130 IMPRESSION: undefined EKG Initial EKG: Attestation: I personally reviewed and interpreted this EKG as follows: Comments: Sinus rhythm with a rate of [address] changes Discharge Plan Triage Chief Complaint: Allergic Reaction ED Provider: David Wagner Dx/Rx/DC Orders Clinical Impression: Paresthesias, Dysarthria, History of hypertension Prescriptions: No Action gabapentin 400 mg capsule 400 mg PO QHS ascorbic acid (vitamin C) 1,000 mg capsule 1 g PO DAILY duloxetine 60 mg capsule,delayed release(DR/EC) 60 mg PO DAILY loratadine 10 mg tablet 10 mg PO DAILY ferrous sulfate 325 mg (65 mg iron) tablet,delayed release (DR/EC) 325 mg PO DAILY metoprolol succinate 100 mg tablet extended release 24 hr 100 mg PO DAILY buspirone 30 mg tablet 15 mg PO BID magnesium oxide 400 mg (241.3 mg magnesium) tablet 400 mg PO BID clonidine HCl 0.2 mg tablet 0.2 mg PO BID zinc sulfate 50 mg zinc (220 mg) capsule 50 mg PO DAILY Patient Comments: TAKE 1 CAPSULE BY MOUTH ONCE DAILY sennosides-docusate sodium [Stool Softener-Stimulant Laxat] 8.6-50 mg tablet 2 tab PO DAILY PRN fluticasone propionate [Flonase Allergy Relief] 50 mcg/actuation spray,suspension 1 spray intranasal DAILY Rx Instructions: administer into each nostril saw palmetto-pumpkin seed oil 160 mg capsule PO turmeric curcumin 1 cap PO DAILY cholecalciferol (vitamin D3) [Vitamin D3] 125 mcg (5,000 unit) Tablet 125 mcg PO DAILY aspirin 81 mg Capsule 81 mg PO DAILY losartan 100 mg Tablet 100 mg PO DAILY Qty: 0 0RF hydrochlorothiazide 25 mg tablet 25 mg PO DAILY Qty: 30 11RF Primary Care Provider: Slim Denson Referrals: Slim Denson DO [Primary Care Provider] - Disposition Disposition: Acute Care Hospital [facility]
[2022-11-24 20:08] LABS: Absolute Lymphocyte Count 1.84 X10^3/uL (0.83-4.51); Basophil% 1.8 % (0-1); Eosinophil# 0.12 X10^3/uL; Eosinophils% 2.2 % (0-5); Hematocrit 48.8 % (37-47); Hemoglobin 15.7 g/dL (12.0-15.0); Lymphocyte # 1.84 X10^3/ul (0.83-4.51); Lymphocyte % 33.5 % (19-41); Mean Corp Hgb Conc 32.2 g/dL (32-36); Mean Corpuscular Volume 87.1 fL (81-99); Mean Platelet Vol. 10.2 fl (6.2-12.0); Monocyte# 0.45 X10^3/uL; Monocyte% 8.2 % (0-10); NRBC Flagged by Analyzer 0 % (0-5); Neutrophil # 2.98 X10^3/uL (2.7-7.7); Neutrophil % 54.1 % (47-70); Platelet Count 229 K/mm3 (150-450); RBC Distribution Width CV 14.1 % (11.6-14.6); RBC Distribution Width SD 44.9 fl (35.1-43.9); White Blood Count 5.5 K/mm3 (4.4-11.0)
[2022-11-24 20:25] LABS: Anion Gap 3 (5-15); BUN 17 mg/dL (7-18); BUN/Creat Ratio 15.6 RATIO (10-20); Calcium,Total 9.3 mg/dL (8.5-10.1); Chloride 105 mmol/L (98-107); Creatinine, Serum 1.09 mg/dL (0.55-1.02); EST Glomerular Filtration Rate 55 mL/min (>60); Est Glom Filt Rate - Afr Amer 67 mL/min (>60); Estimated Creatinine Clearance 43.49 ml/min; Glucose 137 mg/dL (74-106); International Normalized Ratio 0.9; Potassium 3.5 mmol/L (3.5-5.1); Prothrombin Time (Protime)PT. 12.5 SECONDS (11.7-14.9); Sodium Level 139 mmol/L (136-145); Troponin-I HS 4 pg/mL (3.0-54.0)
[2022-11-24 20:26] LABS: Partial Thromboplast Time 27.2 Seconds (24.1-36.2)
--- NOTE | 2022-11-24 20:30 | CT_ITS ---
We are attempting to reach an attending provider to discuss findings. An addendum with communication details will be sent when the communication is complete. INDICATION: Neuro deficit, acute, stroke suspected EXAMINATION: CT BRAIN - CT Head Stroke Protocol W/O Contrast Injection TECHNIQUE: Multiple axial images were obtained of the head without intravenous contrast. A radiation dose optimization technique was used for this scan. IV Contrast dosage and agent: None. Radiation Dose (provided by facility) CTDIvol (NA ) mGy, DLP ( NA) mGy-cm COMPARISON: 07/02/2021 FINDINGS: HEMISPHERES: 1. The cerebral parenchyma, ventricular system, subarachnoid spaces have normal configuration and density. There is a normal gyral pattern. There is normal sigala/white differentiation. No midline shift.. 2. Scattered areas of remote infarct and minimal encephalomalacic changes are present particularly including the medial aspect LEFT frontal lobe. 3. No intraparenchymal mass, hemorrhage, or acute territorial infarct. CEREBELLUM - BRAINSTEM: The cerebellum, brainstem, basilar and suprasellar cisterns have normal configuration, scattered areas of remote infarct present within the cerebellar hemispheres, greater on RIGHT than LEFT.. No Chiari malformation. PITUITARY: Infundibulum and pituitary have normal configuration. Midline structures appear normal. VESSELS: 1. No significant vascular calcifications in the cavernous carotid vessels. 2. No hyperdense vascular signs noted.. ORBITS AND PARANASAL SINUSES: 1. Normal appearance of the bony orbits. Normal appearance of the globes and retrobulbar soft tissues.. 2. Paranasal sinuses are clear. BONY ELEMENTS: Bony elements of the cranial vault, facial skeleton and skull base have normal appearance. SCALP AND SOFT TISSUES: Normal appearance of the soft tissues of the scalp and the visualized face OTHER: None CT/STROKE Brain/Head without Cont IMPRESSION: 1. Scattered areas of remote infarct and minimal encephalomalacic changes including LEFT frontal lobe, and the cerebellar hemispheres greater on the RIGHT than LEFT. 2. No intracranial mass, hemorrhage or acute territorial infarct. 3. No radiographically significant sinus disease. Electronically Signed: Charlie Padilla MD at 20:43 EDT ,
--- NOTE | 2022-11-24 20:30 | CT_ITS ---
INDICATION: Neuro deficit, acute, stroke suspected EXAMINATION: CT BRAIN WITH CONTRAST TECHNIQUE: Routine carotid CT angiogram protocol was performed without and with IV contrast. In addition, images were obtained of the [place] of [place]. NASCET criteria using the distal ICAs for comparison were used for evaluation of stenoses. 3D reconstructions were reviewed. A radiation dose optimization technique was used for this scan. IV Contrast dosage and agent: 100 mL of [id number]-[id number]. COMPARISON: CT head November 24, 2022 FINDINGS: --CTA NECK: AORTIC ARCH AND BRANCHES: No aneurysmal dilation aortic arch. There is a endograft covering the left subclavian artery with left subclavian endograft also present. Note of moderate coronary artery calcifications. RIGHT CCA: No occlusion, significant stenosis or dissection. RIGHT ICA: No occlusion, significant stenosis or dissection. LEFT CCA: No occlusion, significant stenosis or dissection. LEFT ICA: No occlusion, significant stenosis or dissection. RIGHT VERTEBRAL ARTERY: No occlusion, significant stenosis or dissection. LEFT VERTEBRAL ARTERY: No occlusion, significant stenosis or dissection. Tortuous internal carotid and vertebral arteries may be indicative of hypertension. NECK SOFT TISSUES: No lymphadenopathy. Submandibular and parotid glands are normal. Left thyroid gland hypodensities less than 5 mm. No follow-up imaging recommended. --CTA HEAD: --Anterior circulation: ICAs: No significant stenosis at the intracranial/visualized segments. ACAs: No significant stenosis at the visualized segments. ACOM: Present. MCAs: No significant stenosis at the visualized segments. --Posterior circulation: PCOMs: Absent right posterior communicating artery. pickle pumper: No significant stenosis at the visualized segments. Left posterior cerebral artery originates from the anterior circulation. No communication with the basilar artery; normal variant persistent circulation. BASILAR ARTERY: No significant stenosis. VERTEBRAL ARTERIES: No significant stenosis at the intradural/visualized segments. No evidence of intracranial aneurysm or vascular malformation. CT/STROKE CTA Head AND Neck W/Con IMPRESSION: No large vessel occlusion, aneurysm or significant stenosis. Electronically Signed: Tenzin Mckeon DO at 21:16 EDT ,
--- NOTE | 2022-11-24 20:50 | CM.ED ---
Social Work Referral Source: stroke alert Referral reason: emotional support. SW responded to stroke alert and introduced self and role as [facility] SW to patient's . Patient's was agreeable to talk and discussed patient's medical history. SW provided emotional support and reviewed [facility] response to stroke alert including consulting with [facility] neurology. No other needs voiced, SW remains available if needs arise. Jayde Link [employer] HELPER, [place]
--- NOTE | 2022-11-24 21:00 | RAD_ITS ---
INDICATION: Neuro deficit, acute, stroke suspected EXAMINATION/TECHNIQUE: X-RAY - XR Chest 1 View COMPARISON: 07/22/2021 FINDINGS: LIFE-SUPPORT AND LINES: 1. Mediastinal wires, vascular clips, prosthetic valve cage, transvenous pacer/AICD leads, and aortic stent in place. 2. No pneumothorax HEART AND VESSELS: Cardiac silhouette is upper limit of normal, no congestive failure. LUNGS AND PLEURAL SPACES: Mild volume loss atelectasis at LEFT base, there is a small hiatal hernia. Mild atelectasis at the RIGHT base. Remaining lung zones clear. MEDIASTINUM AND HILAR REGIONS: No masses adenopathy noted. No areas of calcification. Visualized upper airway is normal in position. BONY ELEMENTS: No acute bony changes noted. RAD/Chest 1 View IMPRESSION: 1. Median sternotomy and vascular clips prostatic valve ring, aortic stent graft, and transvenous pacer/AICD system without change. 2. No pneumothorax. 3. No congestive failure. 4. Hiatal hernia and LEFT basilar atelectasis without change. 5. Mild atelectasis at the RIGHT base. Electronically Signed: Charlie Padilla MD at 22:26 EDT ,
[2022-11-24 21:10] LABS: Bedside Glucose 139 mg/dL (74-106)
--- NOTE | 2022-11-24 21:39 | PCM.HP.STD ---
HPI - General General Date of Admission: 11/24/22 HPI Narrative ANGELITO LIVE, is a 57 F who presents with a numb tongue and slight dysarthria. She states that she has had a stroke in the past as well as a spinal cord embolism during a surgery for an aortic dissection. She states that today she felt that the right side of her tongue was numb which is not normal for her and her felt that her speech was a little bit more slurred than at baseline. She denies any upper extremity or lower extremity weakness. CTA head and neck was unremarkable as was her CT of the brain. [facility] Medical History Acute blood loss anemia Anxiety Anxiety and depression Arthritis Cerebellar infarction (07/13/21) Chronic anemia Cognitive dysfunction COVID-19 DVT (deep venous thrombosis) (07/14/21) Endometrial cancer Essential hypertension Former tobacco use Generalized anxiety disorder GERD (gastroesophageal reflux disease) Hiatal hernia History of aortic dissection (07/04/21) History of IBS History of traumatic brain injury Infarction of left basal ganglia Insomnia Intracerebral bleed due to trauma Iron deficiency Left upper extremity deep vein thrombosis Major depressive disorder, recurrent severe without psychotic features Neurogenic bladder Non-sustained ventricular tachycardia Nonobstructive atherosclerosis of coronary artery CLARKE (obstructive sleep apnea) Peripheral neuropathy Physical debility Prediabetes Radial artery thrombosis, left Right inguinal hernia SBO (small bowel obstruction) Seizure disorder Seizures Sustained ventricular tachycardia Tobacco dependence due to cigarettes, in remission Urinary retention Ventricular tachycardia Home Medications cholecalciferol (vitamin D3) 125 mcg (5,000 unit) tablet (Vitamin D3) 125 mcg PO DAILY Check with primary doctor 07/02/21 [History Last Taken Unknown] aspirin 81 mg capsule 81 mg PO DAILY heart health 07/18/21 [History Last Taken Unknown] losartan 100 mg tablet 100 mg PO DAILY #0 tabs 08/07/21 [Rx Last Taken Unknown] hydrochlorothiazide 25 mg tablet 25 mg PO DAILY #30 tabs 09/28/21 [Rx Last Taken Unknown] ascorbic acid (vitamin C) 1,000 mg capsule 1 g PO DAILY 12/03/21 [History Last Taken Unknown] duloxetine 60 mg capsule,delayed release 60 mg PO DAILY 12/03/21 [History Last Taken Unknown] ferrous sulfate 325 mg (65 mg iron) tablet,delayed release 325 mg PO DAILY 12/03/21 [History Last Taken Unknown] loratadine 10 mg tablet 10 mg PO DAILY 12/03/21 [History Last Taken Unknown] metoprolol succinate 100 mg tablet,extended release 24 hr 100 mg PO DAILY 12/03/21 [History Last Taken Unknown] clonidine HCl 0.2 mg tablet 0.2 mg PO BID 04/13/22 [History Last Taken Unknown] buspirone 30 mg tablet 15 mg PO BID 09/28/22 [History Last Taken Unknown] fluticasone propionate 50 mcg/actuation nasal spray,suspension (Flonase Allergy Relief) 1 spray intranasal DAILY 09/28/22 [History Last Taken Unknown] gabapentin 400 mg capsule 400 mg PO QHS 09/28/22 [History Last Taken Unknown] magnesium oxide 400 mg (241.3 mg magnesium) tablet 400 mg PO BID 09/28/22 [History Last Taken Unknown] saw palmetto-pumpkin seed oil 160 mg capsule cap PO 09/28/22 [History Last Taken Unknown] sennosides 8.6 mg-docusate sodium 50 mg tablet (Stool Softener-Stimulant Laxative) 2 tab PO DAILY PRN constipation 09/28/22 [History Last Taken Unknown] turmeric curcumin 1 cap PO DAILY 09/28/22 [History Last Taken Unknown] zinc sulfate 50 mg zinc (220 mg) capsule 50 mg PO DAILY 09/28/22 [History Last Taken Unknown] cephalexin 500 mg capsule mg 11/24/22 [History Last Taken Unknown] zinc 50 mg capsule 50 mg PO DAILY 11/24/22 [History Last Taken Unknown] Allergy/AdvReac Type Severity Reaction Status Date / Time nitrofurantoin Allergy Hives Verified 11/24/22 19:39 [From Macrobid] Penicillins [PCN] Allergy Swelling Verified 11/24/22 19:39 amlodipine AdvReac Other Verified 11/24/22 19:39 ciprofloxacin AdvReac Other Verified 11/24/22 19:39 erythromycin base AdvReac Upset Verified 11/24/22 19:39 [Erythromycin Base] Stomach lisinopril AdvReac Other Verified 11/24/22 19:39 sulfamethoxazole AdvReac Upset Verified 11/24/22 19:39 [From Bactrim] Stomach trimethoprim [From Bactrim] AdvReac Upset Verified 11/24/22 19:39 Stomach Family History Mother Cancer Hx endometrial CA. Hypertension Father Myocardial infarction Heart disease Hypertension Grandfather CAD (coronary artery disease) Diabetes Daughter Seizures Surgical History H/O umbilical hernia repair H/O: hysterectomy (2005) History of aortic valve replacement (07/04/21) History of cholecystectomy History of implantable cardiac defibrillator (ICD) (06/18/20) History of inguinal hernia repair History of left heart catheterization (06/16/20) History of radiofrequency ablation (RFA) procedure for cardiac arrhythmia (07/16/21) Hx of breast reduction, elective Hx of repair of dissecting thoracic aortic aneurysm, [place] type A (07/04/21) Status post club foot correction at Social History adopted: No household members: spouse housing: house number of children: 2 current occupational status: employed 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 She had seizures. Smoking Status: Former smoker how long ago did patient quit smoking: She quit smoking in 1995 alcohol intake: current alcohol intake frequency: holidays/special occasions only substance use type: does not use ROS Constitutional Constitutional: Denies chills, fatigue, fever(s) or malaise Eyes Eyes: Denies blurry vision ENT HEENT: Denies headache(s) or nasal discharge Cardiovascular Cardiovascular: Denies chest pain, dyspnea on exertion or syncope Respiratory/Chest Respiratory/Chest: Denies cough, shortness of breath at rest or shortness of breath with exertion Gastrointestinal Gastrointestinal: Denies constipation, diarrhea, nausea or vomiting Genitourinary Genitourinary: Denies dysuria Neurologic Neurologic: Reports abnormal speech and numbness; Denies focal weakness or tremor(s) Psychiatric Psychiatric: Denies anxiety or depression Vital Signs Vital Signs Vital Signs: 11/24/22 19:34 11/24/22 19:57 11/24/22 20:36 Temperature 97.6 F L Temperature Source Temporal Pulse Rate 60 70 Respiratory Rate 15 18 Blood Pressure 159/74 H 156/99 H Blood Pressure Mean 102 118 Pulse Ox 99 97 94 Oxygen Delivery Method Room Air Room Air Room Air 11/24/22 21:00 Temperature Temperature Source Pulse Rate 70 Respiratory Rate 16 Blood Pressure Blood Pressure Mean Pulse Ox 95 Oxygen Delivery Method Room Air Weight Weight: 206 lb 2.115 oz Body Mass Index (BMI) 38.9 Physical Exam Narrative General: Alert, Oriented x3, Cooperative, No apparent distress HEENT: Atraumatic, PERRLA, EOMI, Normocephalic Oral: Moist Mucosa Neck: Supple, No JVD Lungs: Clear to auscultation, Normal air movement, No rhonchi, No wheeze, No rales Cardiovascular: Regular rate, Regular Rhythm, Normal S1, Normal S2, No murmurs Abdomen: Soft, Non Tender, Non-Distended, No Hepato-splenomegaly Extremities: No edema, Capillary Refill Less than 3 Seconds Skin: No rashes, No breakdown, scars evident from previous surgeries, she does have keloids Musculoskeletal: No Tenderness to Palpation of Joints or Extremities Neurological: Cranial nerves II-XII grossly intact, numbness is improving in her right tongue and now just feels odd. Strength and sensation is normal and at baseline Psych/Mental Status: Normal Affect, Appropriate Results Lab / Micro Data 11/24/22 20:00 11/24/22 20:00 Labs: Laboratory Results - last 24 hr 11/24/22 19:58: POC Glucose 139 H 11/24/22 20:00: WBC 5.5, RBC 5.60 H, Hgb 15.7 H, Hct 48.8 H, MCV 87.1, MCH 28.0, MCHC 32.2, RDW Std Deviation 44.9 H, RDW Coeff of Love 14.1, Plt Count 229, MPV 10.2, Immature Gran % (Auto) 0.200, Neut % (Auto) 54.1, Lymph % (Auto) 33.5, [place] % (Auto) 8.2, Eos % (Auto) 2.2, Baso % (Auto) 1.8 H, Absolute Neuts (auto) 3.0, Absolute Lymphs (auto) 1.84, Nucleated RBC % 0, PT 12.5, INR 0.9, APTT 27.2, Sodium 139, Potassium 3.5, Chloride 105, Carbon Dioxide 31.0, Anion Gap 3 L, BUN 17, Creatinine 1.09 H, Estim Creat Clear Calc 43.49, Est GFR (MDRD) Af Amer 67, Est GFR (MDRD) Non-Af 55 L, BUN/Creatinine Ratio 15.6, Glucose 137 H, Calcium 9.3, Troponin I High Sens [address] 11/24/22 20:30 IMPRESSION: 1. Scattered areas of remote infarct and minimal encephalomalacic changes including LEFT frontal lobe, and the cerebellar hemispheres greater on the RIGHT than LEFT. 2. No intracranial mass, hemorrhage or acute territorial infarct. 3. No radiographically significant sinus disease. Electronically Signed: Charlie Padilla MD at 20:43 EDT , ADDENDUM: 11/24/222051 IMPRESSION: 1. Scattered areas of remote infarct and minimal encephalomalacic changes including LEFT frontal lobe, and the cerebellar hemispheres greater on the RIGHT than LEFT. 2. No intracranial mass, hemorrhage or acute territorial infarct. 3. No radiographically significant sinus disease. N.B. : The above Results were Read Back by Charlie Padilla MD to David Wagner DO, and understanding confirmed on 11/24/2022 20:45:28 (ET). Electronically Signed: Charlie Padilla MD at 20:43 EDT , Head/Neck CTA 11/24/22 20:30 IMPRESSION: No large vessel occlusion, aneurysm or significant stenosis. Electronically Signed: Tenzin Mckeon DO at 21:16 EDT , ADDENDUM: 11/24/222130 IMPRESSION: undefined Assessment & Plan Assessment/Plan (1) Dysarthria: PLAN: Plan 1. CVA rule out/previous CVA with previous spinal infarction ? Her symptoms have essentially resolved we will continue to monitor NIH is ? We will proceed with an MRI in the morning, she does have a pacemaker and she does have her cards that can be evaluated by MRI for compatibility though she states that since she had her pacemaker and her heart surgery that she has had MRIs as well. ? We will obtain an echo and resume her home aspirin 2. Status post aortic dissection repair/pacemaker for V. tach/HTN/HLD ? Blood pressures are currently stable we will allow for some permissive hypertension and restart medications in the morning ? Continue with statin overnight secondary to her CVA does not appear that she is on any baseline we will obtain a lipid panel 3. Anxiety/depression ? Stable ? Continue with her home medications DVT: Lovenox 75 minutes was spent on direct patient care, including documentation as well as chart review and collaboration with colleagues Charges/Coding Visit Charges Inpatient E&M: 22869 Init Hosp L3
--- NOTE | 2022-11-24 22:40 | ECHOD_ITS ---
Reason For Study: TIA/CVA Procedure This was a 2D Doppler, Color Flow transthoracic echocardiogram. The study was technically difficult. Exam performed portable in patient room. Left Ventricle Normal LV size. The estimated ejection fraction is 75 %. Unable to assess diastolic dysfunction. No regional wall motion abnormalities noted. Right Ventricle Normal RV size. Normal systolic function. Atria Normal left atrium. Normal right atrium. No doppler evidence for ASD. Mitral Valve There is no mitral valve stenosis. No mitral valve insufficiency. Tricuspid Valve There is no tricuspid stenosis. Unable to estimate RV systolic pressure due to inadequate jet, pulmonary artery pressure probably normal. Aortic Valve There is no aortic stenosis. No aortic valve insufficiency. Pulmonic Valve There is no pulmonic valvular stenosis. No pulmonic valve insufficiency. Great Vessels Normal aortic root. Pericardium/Pleural No pericardial effusion. Medication Previous negative bubble study. MMode/2D Measurements & Calculations LVIDd: 3.6 cm IVSd: 1.5 cm LAV(MOD-sp4): 34.8 ml LVIDs: 2.3 cm LVPWd: 1.3 cm RVDd: 3.2 cm FS: 35.2 % LVAd ap4: 22.5 cm2 LVAd ap2: 23.6 cm2 SV(MOD-sp4): 43.5 ml LVLd ap4: 7.3 cm LVLd ap2: 7.9 cm EDV(MOD-sp4): 57.4 ml EDV(MOD-sp2): 58.3 ml EDV(sp4-el): 58.5 ml EDV(sp2-el): 59.3 ml LVAs ap4: 9.6 cm2 LVAs ap2: 13.3 cm2 LVLs ap4: 5.9 cm LVLs ap2: 7.3 cm ESV(MOD-sp4): 13.9 ml ESV(MOD-sp2): 21.7 ml ESV(sp4-el): 13.2 ml ESV(sp2-el): 20.7 ml EF(MOD-sp4): 75.7 % EF(MOD-sp2): 62.9 % EF(sp4-el): 77.5 % SV(MOD-sp2): 36.7 ml SV(sp4-el): 45.3 ml LA A4 area: 15.6 cm2 RA A4 area: 14.5 cm2 Time Measurements MV dec time: 0.25 sec Doppler Measurements & Calculations MV E max maría elena: 83.6 cm/sec MV dec slope: 339.1 cm/sec2 Ao V2 max: 182.4 cm/sec MV A max maría elena: 97.2 cm/sec Ao max P.3 mmHg MV E/A: 0.86 Ao V2 mean: 139.1 cm/sec Ao mean P.3 mmHg Ao V2 VTI: 40.2 cm AV (velocity ratio): 0.43 LV V1 max: 68.5 cm/sec PA V2 max: 112.3 cm/sec LV V1 max P.9 mmHg PA V2 mean: 72.6 cm/sec LV V1 mean P.3 mmHg LV V1 mean: 54.6 cm/sec LV V1 VTI: 17.4 cm ECHO/Echo Complete Interpretation Summary The estimated ejection fraction is 75 %. Ordering Physician: Isacc Pa Referring Physician: Slim Denson Performed By: Mary Stark, MELVIN, RVT
--- NOTE | 2022-11-24 22:40 | MRI_ITS ---
HISTORY: CVA , SLURRED SPEECH, RT TONGUE AND RT LIP NUMB. TECHNIQUE: Multiplanar and multisequence MR images of the brain were obtained without contrast. 285 images. COMPARISON: CT prior day. FINDINGS: BRAIN PARENCHYMA: Old left posterior frontal hemorrhagic infarct. Old left basal ganglia and right occipital microhemorrhage. Small chronic right cerebellar infarct. Mild chronic white matter changes. No abnormal focus of restricted diffusion. No acute intracranial hemorrhage identified. CSF SPACES: Mild volume loss. No significant midline shift or other mass effect.No extra-axial fluid collection. VASCULAR SYSTEM: Major intracranial flow voids are maintained. PARANASAL SINUSES AND MASTOID AIR CELLS: No significant air fluid levels. ORBITS: Symmetric contents. MRI/Brain without Contrast IMPRESSION: No evidence for acute infarct. Mild chronic involutional and white matter changes. Chronic cerebral and cerebellar infarct with old hemorrhage. Electronically Signed: Antonia Calles MD at 14:12 EDT ,
[2022-11-25] VITALS (15 sets, daily range): BP systolic 158–207; BP diastolic 71–103; PULSE 59–85; RESP 14–18; TEMP 36.2–36.5; O2SAT 92–96; BMI 38.8
[2022-11-25] MEDS: busPIRone 15 MG TABLET PO ×2 (00:27→10:28)
[2022-11-25] MEDS: Loratadine 10 MG Tablet PO (00:28)
[2022-11-25] MEDS: DULoxetine Hcl 60 MG Capsule PO (00:28)
[2022-11-25] MEDS: Atorvastatin Calcium 40 MG Tablet PO (00:28)
[2022-11-25] MEDS: Gabapentin 400 MG Capsule PO (00:40)
[2022-11-25 05:44] LABS: Absolute Lymphocyte Count 2.19 X10^3/uL (0.83-4.51); Absolute Neutrophil Count 3.1 X10^3/uL (2.0-7.7); Basophil# 0.09 X10^3/uL; Basophil% 1.5 % (0-1); Eosinophil# 0.12 X10^3/uL; Hematocrit 43.4 % (37-47); Hemoglobin 14.6 g/dL (12.0-15.0); Lymphocyte # 2.19 X10^3/ul (0.83-4.51); Lymphocyte % 36.5 % (19-41); Mean Corp Hgb Conc 33.6 g/dL (32-36); Mean Corpuscular Hgb 28.7 pg (27.0-32.0); Mean Corpuscular Volume 85.4 fL (81-99); Mean Platelet Vol. 10.4 fl (6.2-12.0); Monocyte% 8.3 % (0-10); NRBC Flagged by Analyzer 0 % (0-5); Neutrophil # 3.08 X10^3/uL (2.7-7.7); Neutrophil % 51.4 % (47-70); Platelet Count 214 K/mm3 (150-450); RBC Distribution Width SD 43.4 fl (35.1-43.9); Red Blood Count 5.08 M/mm3 (4.2-5.4)
[2022-11-25 06:30] LABS: Anion Gap 5 (5-15); BUN 14 mg/dL (7-18); BUN/Creat Ratio 17.1 RATIO (10-20); Calcium,Total 8.8 mg/dL (8.5-10.1); Chloride 109 mmol/L (98-107); Cholesterol 208 mg/dL (200); Creatinine, Serum 0.82 mg/dL (0.55-1.02); EST Glomerular Filtration Rate 76 mL/min (>60); Est Glom Filt Rate - Afr Amer 93 mL/min (>60); Estimated Creatinine Clearance 57.81 ml/min; Glucose 111 mg/dL (74-106); High Density Lipoprotein 47 mg/dL; Potassium 3.5 mmol/L (3.5-5.1); Sodium Level 140 mmol/L (136-145); Triglycerides 303 mg/dL; Very Low Density Lipoprotein 61 mg/dL (5-40)
[2022-11-25] MEDS: Enoxaparin 40 MG/0.4 ML Syringe SC (10:28)
[2022-11-25] MEDS: Aspirin 81 MG TAB.CHEW PO (10:28)
[2022-11-25] MEDS: Metoprolol(XL)Succ 100 MG Tablet PO (10:29)
[2022-11-25] MEDS: Ferrous Sulfate 325 MG Tablet PO (10:29)
--- NOTE | 2022-11-25 10:57 | PN.HOSP_ITS ---
Reason for Visit Reason for Visit: Diagnoses Dysarthria and anarthria (11/24/22) Subjective Subjective Feeling much better this a.m. with neurodeficits resolved in face, has chronic weakness and sensory changes in right lower extremity that are unchanged from baseline Objective Data Objective Data Vital Signs: Vital Signs Temp Pulse Resp BP Pulse Ox O2 Del Method FiO2 97.1 F L 69 16 185/71 H 96 Room Air 21 11/25/22 10:30 11/25/22 10:30 11/25/22 10:30 11/25/22 10:30 11/25/22 10:30 11/25/22 10:30 11/24/22 23:25 Oxygen Delivery Method Room Air Weight: 93.3 kg Body Mass Index (BMI) 38.8 Intake & Output: Intake and Output for Last 24 Hours 11/23/22 11/24/22 11/25/22 23:59 23:59 23:59 Intake Total 800 / 800 Balance 800 / 800 Lab / Micro Data 11/25/22 04:51 11/25/22 04:51 Labs: Laboratory Results - last 24 hr 11/24/22 19:58: POC Glucose 139 H 11/24/22 20:00: WBC 5.5, RBC 5.60 H, Hgb 15.7 H, Hct 48.8 H, MCV 87.1, MCH 28.0, MCHC 32.2, RDW Std Deviation 44.9 H, RDW Coeff of Love 14.1, Plt Count 229, MPV 10.2, Immature Gran % (Auto) 0.200, Neut % (Auto) 54.1, Lymph % (Auto) 33.5, [place] % (Auto) 8.2, Eos % (Auto) 2.2, Baso % (Auto) 1.8 H, Absolute Neuts (auto) 3.0, Absolute Lymphs (auto) 1.84, Nucleated RBC % 0, PT 12.5, INR 0.9, APTT 27.2, Sodium 139, Potassium 3.5, Chloride 105, Carbon Dioxide 31.0, Anion Gap 3 L, BUN 17, Creatinine 1.09 H, Estim Creat Clear Calc 43.49, Est GFR (MDRD) Af Amer 67, Est GFR (MDRD) Non-Af 55 L, BUN/Creatinine Ratio 15.6, Glucose 137 H, Calcium 9.3, Troponin I High Sens 4 11/25/22 04:51: WBC 6.0, RBC 5.08, Hgb 14.6, Hct 43.4, MCV 85.4, MCH 28.7, MCHC 33.6, RDW Std Deviation 43.4, RDW Coeff of Love 14.0, Plt Count 214, MPV 10.4, Immature Gran % (Auto) 0.300, Neut % (Auto) 51.4, Lymph % (Auto) 36.5, [place] % (Auto) 8.3, Eos % (Auto) 2.0, Baso % (Auto) 1.5 H, Absolute Neuts (auto) 3.1, Absolute Lymphs (auto) 2.19, Nucleated RBC % 0, Sodium 140, Potassium 3.5, Chloride 109 H, Carbon Dioxide 26.0, Anion Gap 5, BUN 14, Creatinine 0.82, Estim Creat Clear Calc 57.81, Est GFR (MDRD) Af Amer 93, Est GFR (MDRD) Non-Af 76, BUN/Creatinine Ratio 17.1, Glucose 111 H, Calcium 8.8, Triglycerides 303 H, Cholesterol 208 H, LDL Cholesterol 100, VLDL Cholesterol 61 H, HDL Cholesterol 47 Radiography Diagnostic Testing: Radiology Impression Brain CT 11/24/22 20:30 IMPRESSION: 1. Scattered areas of remote infarct and minimal encephalomalacic changes including LEFT frontal lobe, and the cerebellar hemispheres greater on the RIGHT than LEFT. 2. No intracranial mass, hemorrhage or acute territorial infarct. 3. No radiographically significant sinus disease. Electronically Signed: Charlie Padilla MD at 20:43 EDT , ADDENDUM: 11/24/222051 IMPRESSION: 1. Scattered areas of remote infarct and minimal encephalomalacic changes including LEFT frontal lobe, and the cerebellar hemispheres greater on the RIGHT than LEFT. 2. No intracranial mass, hemorrhage or acute territorial infarct. 3. No radiographically significant sinus disease. N.B. : The above Results were Read Back by Charlie Padlila MD to David Wagner DO, and understanding confirmed on 11/24/2022 20:45:28 (ET). Electronically Signed: Charlie Padilla MD at 20:43 EDT , Head/Neck CTA 11/24/22 20:30 IMPRESSION: No large vessel occlusion, aneurysm or significant stenosis. Electronically Signed: Tenzin Mckeon DO at 21:16 EDT , ADDENDUM: 11/24/222130 IMPRESSION: undefined Chest X-Ray 11/24/22 21:00 IMPRESSION: 1. Median sternotomy and vascular clips prostatic valve ring, aortic stent graft, and transvenous pacer/AICD system without change. 2. No pneumothorax. 3. No congestive failure. 4. Hiatal hernia and LEFT basilar atelectasis without change. 5. Mild atelectasis at the RIGHT base. Electronically Signed: Charlie Padilla MD at 22:26 EDT , Physical Exam Narrative General: Alert, oriented, no apparent distress HEENT: Atraumatic, normocephalic Eyes: Anicteric, normal conjunctiva, extraocular movements grossly intact Neck: Supple Respiratory: Clear to auscultation bilaterally, normal respiratory effort Cardiovascular: Regular rate and rhythm GI: Soft, nontender, nondistended Extremities: No edema Musculoskeletal: Moving all extremities Neuro: No overt focal neurological deficits Skin: No rashes appreciated Psych: Cooperative Assessment & Plan Assessment/Plan (1) Dysarthria: PLAN: Plan 1. CVA rule out/previous CVA with previous spinal infarction ? Her symptoms have essentially resolved we will continue to monitor NIH is ? We will proceed with an MRI in the morning, she does have a pacemaker and she does have her cards that can be evaluated by MRI for compatibility though she states that since she had her pacemaker and her heart surgery that she has had MRIs as well. ? We will obtain an echo and resume her home aspirin -11/25: MRI and echo pending. Will have neurology see patient once these are available. MRI may be delayed as patient reports she has to have somebody from [employer] present during her previous MRIs for her pacemaker. Pending work-up and neuro evaluation will change discharge date. If able to complete all of this today can likely DC later today though suspect more likely tomorrow once results available and patient seen in consultation as long as patient remains stable. Continue aspirin and statin 2. Status post aortic dissection repair/pacemaker for V. tach/HTN/HLD ? Blood pressures are currently stable we will allow for some permissive hypertension and restart medications in the morning ? Continue with statin overnight secondary to her CVA does not appear that she is on any baseline we will obtain a lipid panel -11/25: Patient currently allowing for permissive hypertension, as needed's available, is continued on metoprolol succinate, continue aspirin and statin 3. Anxiety/depression ? Stable ? Continue with her home medications DVT: Lovenox subq 40 minutes was spent on direct patient care, including documentation as well as chart review and collaboration with colleagues Charges/Coding Visit Charges Inpatient E&M: 15422 Subs Hosp L2
[2022-11-25] MEDS: LORazepam 0.5 MG Tablet PO (11:42)
--- NOTE | 2022-11-25 13:23 | CASEMGMT ---
Patient has a Healthcare Power of Warp Splitter and a Healthcare Living Will on file at [facility]. Patient's son Osvaldo is patient's Healthcare Power of Warp Splitter. Elzbieta KINNEY
--- NOTE | 2022-11-25 14:30 | CHAPLAIN ---
Type of Pastoral Visit _x__ Initial Visit ___ Follow-up Visit ___ On-call Visit ___ General Patient Visit ___ Spiritual Assessment ___ Family Conference ___ Bereavement ___ Rapid Response ___ Code Blue ___ Other (describe below) Pastoral Care Referral From _x__ Patient ___ Family ___ Nurse ___ Physician ___ Occupational Health Nurse Supervisor ___ Sub Arc Operator ___ Other (describe below) Sacrament/Intervention _x__ Active listening ___ Anointing ___ Mu-Ism ___ Bereavement ___ Communion ___ Ro exploration ___ _x__ Life review ___ Prayer ___ Reconciliation ___ Sacrament of Sick ___ Supportive presence ___ Wedding ___ Other (describe below) Pastoral Comments patient is expressive about her health history and that she is certainly a miracle because I've and should not be alive today; spouse and then mother also are in the room for patient support; offer of ongoing support as desired
--- NOTE | 2022-11-25 15:40 | CASEMGMT ---
ESMER CM NOTE: Anticipate pt will be ready for discharge home today. PT/OT evals reviewed and it was recommended that pt continue w/OP therapy. RN CM to room. Pt sitting up in recliner chair. Family @ bedside and pt agreeable to them being present. Pt verifies she has been going to OP therapy @ [facility] and plans to resume this once she returns home. She feels close to her baseline She states she has a walker, cane, shower chair, and CPAP @ home and denies any further DME needs and denies further discharge planning needs or concerns. Shady BSN RNCM
[2022-11-25] MEDS: hydrALAZINE 20 MG/ML Vial 5 MG IV (15:51)
--- NOTE | 2022-11-25 17:16 | PCM.DC.SUM ---
Providers Date of Admission: 11/24/22 Date of Discharge: 11/25/22 Primary Care Physician: Dr. Slim Denson DO Reason For Visit: CVA R/O Diagnosis Discharge Diagnosis (1) Dysarthria: Status: Acute Code(s): R47.1 - Dysarthria and anarthria Plan #TIA #History DVT #History of cerebellar infarct #History of aortic dissection #History of depression #GERD #Former tobacco use #Status post aortic dissection repair/pacemaker for V. tach/HTN/HLD Medications at Discharge Home Medications cholecalciferol (vitamin D3) 125 mcg (5,000 unit) tablet (Vitamin D3) 125 mcg PO DAILY Check with primary doctor 07/02/21 aspirin 81 mg capsule 81 mg PO DAILY heart health 07/18/21 losartan 100 mg tablet 100 mg PO DAILY #0 tabs 08/07/21 hydrochlorothiazide 25 mg tablet 25 mg PO DAILY #30 tabs 09/28/21 duloxetine 60 mg capsule,delayed release 60 mg PO DAILY 12/03/21 loratadine 10 mg tablet 10 mg PO DAILY 12/03/21 metoprolol succinate 100 mg tablet,extended release 24 hr 100 mg PO DAILY 12/03/21 clonidine HCl 0.2 mg tablet 0.2 mg PO BID 04/13/22 fluticasone propionate 50 mcg/actuation nasal spray,suspension (Flonase Allergy Relief) 1 spray intranasal DAILY 09/28/22 gabapentin 400 mg capsule 400 mg PO .qpm and tid prn 09/28/22 magnesium oxide 400 mg (241.3 mg magnesium) tablet 400 mg PO DAILY 09/28/22 sennosides 8.6 mg-docusate sodium 50 mg tablet (Stool Softener-Stimulant Laxative) 2 tab PO DAILY PRN constipation 09/28/22 turmeric curcumin 1 cap PO DAILY 09/28/22 zinc sulfate 50 mg zinc (220 mg) capsule 50 mg PO DAILY 09/28/22 cephalexin 500 mg capsule 500 mg PO .weekly 11/24/22 zinc 50 mg capsule 50 mg PO DAILY 11/24/22 ascorbic acid (vitamin C) 500 mg capsule 500 mg PO DAILY 11/25/22 atorvastatin 40 mg tablet 40 mg PO QHS 30 days #30 tabs 11/25/22 buspirone 10 mg tablet 20 mg PO BID 11/25/22 clopidogrel 75 mg tablet (Plavix) 75 mg PO DAILY #30 tabs 11/25/22 ferrous sulfate 325 mg (65 mg iron) tablet (iron) 325 mg PO DAILY 11/25/22 pumpkin seed extract 500 mg capsule (Azo Men) 1,000 mg PO DAILY 11/25/22 Hospital Course Procedures Transthoracic echo Summary of Care Provided Minutes Spent on Discharge: 32 Hospital Course: Patient is a 57-year-old female with history of cerebellar infarct, spinal cord infarct, aortic dissection surgery, GERD, anxiety, DVT not on anticoagulation who presented to [facility] 11/24/2022 due to episode of dysarthria and right-sided tongue numbness. CTA head neck, CT head, MRI without new stroke and only redemonstrated stable old infarcts. She was seen by neurology who recommended statin in addition to continuing aspirin and starting plavix. Patient's symptoms completely resolved by time of discharge. Discharged home in stable condition. DC instructions as follows: -Continue taking aspirin, you have also been started on Plavix and atorvastatin -Please follow-up with your neurologist upon discharge. Please call their office to schedule hospital follow-up appointment upon discharge. -Please call your primary care provider's office upon discharge to schedule a hospital follow up within 1 week. -For any concerning signs or symptoms please call 911 or proceed to the nearest emergency department Physical Exam Narrative General: Alert, oriented, no apparent distress HEENT: Atraumatic, normocephalic Eyes: Anicteric, normal conjunctiva, extraocular movements grossly intact Neck: Supple Respiratory: Clear to auscultation bilaterally, normal respiratory effort Cardiovascular: Regular rate and rhythm GI: Soft, nontender, nondistended Extremities: No edema Musculoskeletal: Moving all extremities Neuro: No dysarthria, facial movements symmetrical Skin: No rashes appreciated Psych: Cooperative Weight / BMI Weight Weight: 93.3 kg Body Mass Index (BMI) 38.8 ABG / Lab / Microbiology Data 11/25/22 04:51 11/25/22 04:51 Laboratory: Laboratory Results - last 24 hr 11/24/22 19:58: POC Glucose 139 H 11/24/22 20:00: WBC 5.5, RBC 5.60 H, Hgb 15.7 H, Hct 48.8 H, MCV 87.1, MCH 28.0, MCHC 32.2, RDW Std Deviation 44.9 H, RDW Coeff of Love 14.1, Plt Count 229, MPV 10.2, Immature Gran % (Auto) 0.200, Neut % (Auto) 54.1, Lymph % (Auto) 33.5, [place] % (Auto) 8.2, Eos % (Auto) 2.2, Baso % (Auto) 1.8 H, Absolute Neuts (auto) 3.0, Absolute Lymphs (auto) 1.84, Nucleated RBC % 0, PT 12.5, INR 0.9, APTT 27.2, Sodium 139, Potassium 3.5, Chloride 105, Carbon Dioxide 31.0, Anion Gap 3 L, BUN 17, Creatinine 1.09 H, Estim Creat Clear Calc 43.49, Est GFR (MDRD) Af Amer 67, Est GFR (MDRD) Non-Af 55 L, BUN/Creatinine Ratio 15.6, Glucose 137 H, Calcium 9.3, Troponin I High Sens 4 11/25/22 04:51: WBC 6.0, RBC 5.08, Hgb 14.6, Hct 43.4, MCV 85.4, MCH 28.7, MCHC 33.6, RDW Std Deviation 43.4, RDW Coeff of Love 14.0, Plt Count 214, MPV 10.4, Immature Gran % (Auto) 0.300, Neut % (Auto) 51.4, Lymph % (Auto) 36.5, [place] % (Auto) 8.3, Eos % (Auto) 2.0, Baso % (Auto) 1.5 H, Absolute Neuts (auto) 3.1, Absolute Lymphs (auto) 2.19, Nucleated RBC % 0, Sodium 140, Potassium 3.5, Chloride 109 H, Carbon Dioxide 26.0, Anion Gap 5, BUN 14, Creatinine 0.82, Estim Creat Clear Calc 57.81, Est GFR (MDRD) Af Amer 93, Est GFR (MDRD) Non-Af 76, BUN/Creatinine Ratio 17.1, Glucose 111 H, Calcium 8.8, Triglycerides 303 H, Cholesterol 208 H, LDL Cholesterol 100, VLDL Cholesterol 61 H, HDL Cholesterol 47 Radiography Diagnostic Testing: Radiology Impression Brain CT 11/24/22 20:30 IMPRESSION: 1. Scattered areas of remote infarct and minimal encephalomalacic changes including LEFT frontal lobe, and the cerebellar hemispheres greater on the RIGHT than LEFT. 2. No intracranial mass, hemorrhage or acute territorial infarct. 3. No radiographically significant sinus disease. Electronically Signed: Charlie Padilla MD at 20:43 EDT , ADDENDUM: 11/24/222051 IMPRESSION: 1. Scattered areas of remote infarct and minimal encephalomalacic changes including LEFT frontal lobe, and the cerebellar hemispheres greater on the RIGHT than LEFT. 2. No intracranial mass, hemorrhage or acute territorial infarct. 3. No radiographically significant sinus disease. N.B. : The above Results were Read Back by Charlie Padilla MD to David Wagner DO, and understanding confirmed on 11/24/2022 20:45:28 (ET). Electronically Signed: Charlie Padilla MD at 20:43 EDT , Head/Neck CTA 11/24/22 20:30 IMPRESSION: No large vessel occlusion, aneurysm or significant stenosis. Electronically Signed: Tenzin Mckeon DO at 21:16 EDT , ADDENDUM: 11/24/222130 IMPRESSION: undefined Chest X-Ray 11/24/22 21:00 IMPRESSION: 1. Median sternotomy and vascular clips prostatic valve ring, aortic stent graft, and transvenous pacer/AICD system without change. 2. No pneumothorax. 3. No congestive failure. 4. Hiatal hernia and LEFT basilar atelectasis without change. 5. Mild atelectasis at the RIGHT base. Electronically Signed: Charlie Padilla MD at 22:26 EDT , Brain MRI 11/24/22 22:40 IMPRESSION: No evidence for acute infarct. Mild chronic involutional and white matter changes. Chronic cerebral and cerebellar infarct with old hemorrhage. Electronically Signed: Antonia Calles MD at 14:12 EDT Reading Location ID and State: [facility] / [place] Tel , Service support , Echocardiogram 11/24/22 22:40 Interpretation Summary The estimated ejection fraction is 75 %. Ordering Physician: Isacc Pa Referring Physician: Slim Denson Performed By: Mary Stark, MELVIN, RVT D/C Instructions Discharge Diet: No restrictions Meaningful Use Info Meaningful Use Diagnoses (Choose all that apply): None applicable Discharge Plan Admission Admit Date/Time: 11/24/22 21:39 Primary Reason for Your Visit: Tongue numbness Attending Provider: Stacey Porras Primary Care Provider: Slim Denson Consulting Providers: Isacc Pa Instructions Patient Instructions: TIA Dc, ED Fall Prevention Additional Instructions / Restrictions: DISCHARGE INSTRUCTIONS PLEASE READ *Please take this with you to your next doctors appointment* -Continue taking aspirin, you have also been started on Plavix and atorvastatin -Please follow-up with your neurologist upon discharge. Please call their office to schedule hospital follow-up appointment upon discharge. -Please call your primary care provider's office upon discharge to schedule a hospital follow up within 1 week. -For any concerning signs or symptoms please call 911 or proceed to the nearest emergency department Discharge Orders/Prescriptions Prescriptions: New atorvastatin 40 mg Tablet 40 mg PO QHS 30 Days Qty: 30 0RF clopidogrel [Plavix] 75 mg tablet 75 mg PO DAILY Qty: 30 0RF Continued gabapentin 400 mg capsule 400 mg PO .qpm and tid prn duloxetine 60 mg capsule,delayed release(DR/EC) 60 mg PO DAILY loratadine 10 mg tablet 10 mg PO DAILY metoprolol succinate 100 mg tablet extended release 24 hr 100 mg PO DAILY magnesium oxide 400 mg (241.3 mg magnesium) tablet 400 mg PO DAILY clonidine HCl 0.2 mg tablet 0.2 mg PO BID zinc sulfate 50 mg zinc (220 mg) capsule 50 mg PO DAILY Patient Comments: TAKE 1 CAPSULE BY MOUTH ONCE DAILY sennosides-docusate sodium [Stool Softener-Stimulant Laxat] 8.6-50 mg tablet 2 tab PO DAILY PRN (Reason: constipation) fluticasone propionate [Flonase Allergy Relief] 50 mcg/actuation spray,suspension 1 spray intranasal DAILY Rx Instructions: administer into each nostril turmeric curcumin 1 cap PO DAILY cholecalciferol (vitamin D3) [Vitamin D3] 125 mcg (5,000 unit) Tablet 125 mcg PO DAILY aspirin 81 mg Capsule 81 mg PO DAILY losartan 100 mg Tablet 100 mg PO DAILY Qty: 0 0RF cephalexin 500 mg capsule 500 mg PO .weekly Patient Comments: tuesday only zinc 50 mg capsule 50 mg PO DAILY ascorbic acid (vitamin C) 500 mg capsule 500 mg PO DAILY buspirone 10 mg tablet 20 mg PO BID ferrous sulfate [iron] 325 mg (65 mg iron) tablet 325 mg PO DAILY Azo Men 500 mg capsule 1,000 mg PO DAILY hydrochlorothiazide 25 mg tablet 25 mg PO DAILY Qty: 30 11RF Referrals / Follow Up: Slim Denson DO [Primary Care Provider] - Within 1 Week Disposition Disposition (needs filled in before D/C Order can be placed): Home, Self Care Charges/Coding Visit Charges Inpatient E&M: 43663 Disch Hosp >30min
[2022-11-25] MEDS: cloNIDine HCl 0.2 MG Tablet PO (17:57)
[2022-11-25] MEDS: hydrALAZINE 20 MG/ML Vial 10 MG IV (18:52)
[2022-11-25] MEDS: 0.9% Saline Lock 10 ML Syringe IV (18:52)
== END 2022-11-25 19:18 | disposition home or self-care (01) ==
LOC: ED 21:34 → PCU 21:49
PROVIDERS: Admitting Provider Family Medicine; Emergency Provider Emergency Medicine; PCP Student in an Organized Health Care Education/Training Program; Visit Provider Internal Medicine
DX: R47.1 Dysarthria and anarthria (principal); F33.2 Major depressive disorder, recurrent severe without psychotic features; Z86.16 Personal history of COVID-19; I25.10 Atherosclerotic heart disease of native coronary artery without angina pectoris; Z79.02 Long term (current) use of antithrombotics/antiplatelets; Z95.810 Presence of automatic (implantable) cardiac defibrillator; Z79.82 Long term (current) use of aspirin; R47.81 Slurred speech; Z87.891 Personal history of nicotine dependence; I10 Essential (primary) hypertension; M62.81 Muscle weakness (generalized); K21.9 Gastro-esophageal reflux disease without esophagitis; R20.0 Anesthesia of skin; F41.1 Generalized anxiety disorder; G47.33 Obstructive sleep apnea (adult) (pediatric); R73.03 Prediabetes; G62.9 Polyneuropathy, unspecified; Z79.899 Other long term (current) drug therapy
CPT/HCPCS: 99284; 36415; 70450; 70496; 70498; 70551; 71045; 80048; 80061; 82962; 84484; 85025; 85610; 85730; 93005; 93306; 94660; 94762; 96372; 96374; 96376; 97162; 97166; 97802; 99221; Q9967; A4216; G0378

== ENCOUNTER 2022-11-29 08:00 | Outpatient (RCR) | payer OTHER, SELFPAY ==
[2022-02-01 15:24] VITALS: BMI 33.4
--- NOTE | 2022-11-29 09:00 | BH.COMM_ITS ---
Communication Note Communication with Client Communication Note: Pt completed initial paperwork. Pt reports TIA and ER/Observation admission since pre-admission screening. No significant changes regarding mental health since pre-admission screening. Completed [facility] Screening with low risk. Consulted with Dr. Kaur with plan to admit to IOP with dx F41.0 and F33.2
--- NOTE | 2022-11-29 09:01 | BH.SGPN.GN ---
Behaviors/Verbalizations/Mental Status: []Pt alert and oriented, casually dressed and groomed. Eye contact fair to good. Motor activity appropriate. Speech within normal limits. Affect congruent, mood depressed and irritable. Thoughts linear, logical, no signs of hallucinations or delusions. Reviewed pt?s symptom tracker, no reported suicidal ideation, denies plan, or active intent as of 11/29/22. Client Response/Progress/Benefit: []Pt responded well to session, open to processing with group and engaged. Pt reports feeling tired this morning. Pt first day in IOP program and spent much of her check-in sharing what brought her to treatment. Pt discussed several unexpected medical issues resulting in a loss of her previous functioning and requiring pt to rely on the assistance of others more. Discussed struggling with anger about her loss of functioning and struggling to accept no longer being able to work as well as needing additional assistance from others. Described feeling vulnerable and guilty. Pt appeared to benefit from supportive feedback of the group. Pt will continue IOP tx to promote mood stability, reduce irritability and guilt, and continue to improve functioning. Narrative Note: []
--- NOTE | 2022-11-29 10:15 | BH.SGPN.GN ---
Behaviors/Verbalizations/Mental Status: []Eye contact is good. Motor activity is appropriate. Appearance is casual. Speech is Appropriate. Mood is anxious. Affect is congruent. Thoughts are linear and logical. No evidence of psychosis. Client Response/Progress/Benefit: []Pt participated during the group discussion. Attentive during psychoeducation and actively engaged during experiential activity. Participated during interactive discussion on aspects of fixed mindset. Group identified several aspects of fixed mindset which include: inflexible, belief that one cannot grow, absolute thinking, and all of one's skills, traits, and behaviors can't change. Group identified personal examples of fixed thinking in which pt shared personal fixed thoughts as: It's too much to work to clean the house and I'm not smart enough. Benefited from increased understanding of personal fixed mindsets and how they can impact mental health. Will continue in IOP to increase healthy coping skills, decrease irritability, and prevent decompensation.
--- NOTE | 2022-11-30 11:05 | BH.SGPN.GN ---
Behaviors/Verbalizations/Mental Status: [] Eye contact is good. Motor activity is appropriate. Appearance is casual. Speech is Appropriate. Mood is depressed. Affect is congruent. Thoughts are linear and logical. No evidence of psychosis Client Response/Progress/Benefit: [] Pt participated at times during group discussions. Attentive during psychoeducation. In small group pt along with peers developed an active plan for their crisis warning signs. Pt identified two crisis warning signs as well as an action plan for each. One crisis warning sign is anger outbursts with an actions plan that involved; take a breath, rehearse it, remove self from stressor. Other warning sign was negative thoughts with an action plan that involved; remind self of better times, reach out to support, watch something inspirational, hobbies, attend scientology. Benefited from increased awareness of crisis warning signs and by developing crisis intervention strategies. Will continue in IOP to prevent decompensation, increase healthy coping, improve functioning, and stabilize mood. Narrative Note: []
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
--- NOTE | 2022-11-30 12:31 | BH.DR.ITP ---
Initial Treatment Plan Patient Information Visit Information: ADMISSION DATE: EXPECTED LOS: 4-6 weeks Problems/Symptoms Problem #1:: Depression Symptom:: Sadness, hopelessness, grief, low energy, decreased concentration, guilt, passive thoughts of Problem #2:: Anxiety Symptom:: Worry, rumination, panic attack
--- NOTE | 2022-12-06 10:20 | BH.SGPN.GN ---
Behaviors/Verbalizations/Mental Status: []Pt alert and oriented, neatly dressed and groomed. Eye contact good. Motor activity appropriate. Speech within normal limits. Affect congruent, mood depressed. Thoughts linear, logical, no signs of hallucinations or delusions. Client Response/Progress/Benefit: []Pt participated in group discussions. Attentive during psychoeducation on stages of change. Participated during experiential activity. Interactive group discussion on why change is difficult in which group verbalized that change involves the unknown, is scary, leads to uncertainly, makes one feel vulnerable, leads to fear of failure, and triggers the pressure of success. However, pt acknowledged that certain changes in her life have allowed pt to be resilience and improve physically. Benefited from increased awareness of stages of changes and how emotions impact change. Will continue in IOP to promote mood stability, increase acceptance and emotional regulation skills, and improve daily functioning. Narrative Note: []
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
--- NOTE | 2022-12-06 10:38 | BH.MTP_ITS ---
Master Treatment Plan Patient Information Program Physician:: Dr. Yoanna Buchanan Primary Therapist:: Mel KINNEY Psychiatric Diagnoses Psychiatric Diagnoses:: Generalized anxiety disorder F 41.1; Major depressive disorder, recurrent, severe without psychosis Diagnosis Code(s):: F 41.1 Estimated LOS Estimated LOS (in weeks):: 6 Problem/Goal #1 Problem/Goal #1 Stated Goal:: Pt will reduce anxiety, rumination, and physical symptoms while increasing ability to function on daily basis. Description of Barriers: Pt has limited mobility due to her medical issues, pt is not working and this causes anger and sadness, pt does not have outpatient counseling or psychiatry, and pt and her have frequent conflict. Functional Impact: Pt is a 57-year-old female with a history of depression and anxiety. Pt previously completed IOP in 2020 and has referred herself back due to depression triggered by several unexpected medical issues. At admission, pt endorses a depressed mood, hopelessness, helplessness, irritability, anger, and feeling like a burden. Pt also worries constantly and this is worsened when pt has to go to the doctors. Due to medical issues, pt's mobility is impaired and this significantly exacerbates pt's depression. Pt's social, occupational, and familial functioning are impaired by her medical issues and her depressive symptoms. Goal Relevant Strengths/Supports: Pt has a strong sophia, enjoys spending time with her grandkids, and is consistent with her medical appointments. Objectives Objective #1: Stated Objective: Pt will identify 2-3 anxiety triggers and 2 coping skills to use when feeling anxious to manage anxiety as shown by decreasing DSM- 5 scores for anxiety. Interventions: Therapist will provide education on anxiety, avoidance behaviors, and maintenance cycles. Therapist will help pt explore personal symptoms and warning signs of anxiety. Therapist will teach pt coping skills to improve emotional regulation, mindfulness, and distress tolerance to help pt cope with anxiety in the moment. Discharge Criteria: Pt will have accomplished this goal when can identify at least 2 triggers and report using 2 coping skills to manage anxiety. Additionally, pt will have accomplished this goal when DSM-5 scores show a reduction for anxiety. Target Date: 01/10/23 Review Date: 12/20/22 Status: open Objective #2: Stated Objective: pt will identify 2-3 cognitive distortions that lead to rumination and learn 2-3 ways to manage these thoughts to better manage anxiety. Interventions: Therapist will provide education on the most common cognitive distortions and teach pt the connection between thoughts, emotions, and feelings. Therapist will assist pt in identifying, challenging, and replacing dysfunctional thoughts with positive, more realistic thoughts. Therapist will use CBT and DBT techniques to help pt gain awareness of thinking errors and learn how to more effectively handle negative thoughts. Discharge Criteria: Pt will have accomplished this goal when can identify at least 2 cognitive distortions and at least 2 coping skills to manage negative thoughts. Target Date: 01/10/23 Review Date: 12/20/22 Status: open Problem/Goal #2 Problem/Goal #2 Stated Goal:: Pt will reduce depressive symptoms, negative self-talk, anger, hopelessness, and guilt due to Major Depressive Disorder through IOP Services. Description of Barriers: Pt has limited mobility due to her medical issues, pt is not working and this causes anger and sadness, pt does not have outpatient counseling or psychiatry, and pt and her have frequent conflict. Functional Impact: Pt is a 57-year-old female with a history of depression and anxiety. Pt previously completed IOP in 2020 and has referred herself back due to depression triggered by several unexpected medical issues. At admission, pt endorses a depressed mood, hopelessness, helplessness, irritability, anger, and feeling like a burden. Pt also worries constantly and this is worsened when pt has to go to the doctors. Due to medical issues, pt's mobility is impaired and this significantly exacerbates pt's depression. Pt's social, occupational, and familial functioning are impaired by her medical issues and her depressive symptoms. Goal Relevant Strengths/Supports: Pt has a strong sophia, enjoys spending time with her grandkids, and is consistent with her medical appointments. Objectives Objective #1: Stated Objective: Pt will learn and utilize 2-3 healthy coping strategies to better manage depressive symptoms and reduce DSM-5 symptoms for depression. Interventions: Through group and individual sessions, therapist will help pt identify triggers and warning signs of depression and emotional dysregulation including emotional, physical, and behavioral changes. Therapist will teach pt various coping skills to manage symptoms. Therapist will use cognitive restructuring techniques and help pt gain awareness of negative thoughts that reinforce depressive cycles. Therapist will help pt incorporate mindfulness and emotional regulation skills when dealing with difficult situations. Discharge Criteria: Pt will have met this goal when pt can report learning and using at least 2 coping skills to manage depressive symptoms and her DSM-5 scores for depression has decreased. Target Date: 01/10/23 Review Date: 12/20/22 Status: open Objective #2: Stated Objective: Pt will identify emotions associated with the loss of her functioning and be able to more effectively process and manage these by using at least 2 healthy coping skills. Interventions: Therapist will help pt explore the emotions, changes, and thought patterns pt experiences in her grief. Therapist will help pt process these emotions and come up with strategies including acceptance, thought challenging, and creating new goals to help pt move forward and find purpose. Discharge Criteria: Pt will have met this goal when she can report increase ability to manage her grief and identify at least two coping skills to help with this. Target Date: 01/10/23 Review Date: 12/20/22 Status: open
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
--- NOTE | 2022-12-09 09:05 | BH.SGPN.GN ---
Behaviors/Verbalizations/Mental Status: []Pt alert and oriented, casually dressed and groomed. Eye contact good. Motor activity appropriate. Speech within normal limits. Affect congruent, mood anxious and euthymic. Thoughts linear, logical, no signs of hallucinations or delusions. Reviewed pt?s symptom tracker, no suicidal ideation reported, denies plan, or active intent as of 12/09/22. Client Response/Progress/Benefit: []Pt responded well to session, open to processing with group and engaged. Pt reports feeling optimistic this morning. Shared this is related to plans to attend a concert with her mother this afternoon. Did well to identify current wins which included signing up for a gym membership, as well as writing back to school encouragement cards for her grandchildren. Current stressor noted as ongoing difficulties with waking up early enough to attend group. Hopeful she will begin to adjust as she gets use to the new routine. Pt appeared to benefit from supportive feedback of the group, as well as reflecting on mental health wins. Pt will continue IOP tx to promote mood stability, improve acceptance of changes in functioning, and continue to prevent decompensation. Narrative Note: []
--- NOTE | 2022-12-09 10:10 | BH.SGPN.GN ---
Behaviors/Verbalizations/Mental Status: []Eye contact is good. Motor activity is appropriate. Appearance is casual. Speech is Appropriate. Mood is euthymic. Affect is congruent. Thoughts are linear and logical. No evidence of psychosis. Client Response/Progress/Benefit: []Pt was an active participant in group discussion. Attentive during psychoeducation on SMART goals. Participated in experiential activity. Engaged during interactive discussion on the benefits of setting goals which group identified as; increase self-worth, increase confidence, can motivate us, can lead to personal growth, and can give one a sense of purpose. Participated during interactive discussion on possible obstacles to obtaining goals and pt self-identified barriers as laziness and finding other things to do.. Benefited from increased understanding of benefits of goals, obstacles to obtaining goals, and methods for setting appropriate goals (SMART goals). Will continue in IOP to prevent decompensation, stabilize mood, and improve acceptance of current functioning. Narrative Note: []
--- NOTE | 2022-12-09 11:10 | BH.SGPN.GN ---
Behaviors/Verbalizations/Mental Status: []Pt alert and oriented, casually dressed, appropriately groomed. Eye contact good. Motor activity appropriate. Speech within normal limits. Affect congruent, mood euthymic. Thoughts linear, logical, no signs of hallucinations or delusions. Client Response/Progress/Benefit: []Pt was engaged during discussion and willing to complete the worksheet challenging them to develop a personal SMART goal. Pt chose the goal of reflecting on negative/irritable thoughts and identifying two positives either about the situation or person. Pt stated this will benefit them by being a better person for myself and others to be around. Pt identified barriers which included forgetfulness and low motivation. Identified for low motivation she can use rewards, breaking goal into smaller parts, and taking breaks. Pt receptive to identifying solutions for these barriers and willing to begin working on this goal. Benefited from this group by developing a short-term SMART goal related to mental health. Will continue IOP to continue use of healthy coping skills, decrease reactivity, and prevent decompensation.
--- NOTE | 2022-12-14 09:05 | BH.SGPN.GN ---
Behaviors/Verbalizations/Mental Status: [] Eye contact is good. Motor activity is appropriate. Appearance is casual. Speech is Appropriate. Mood is anxious/irritable. Affect is congruent. Thoughts are linear and logical. No evidence of psychosis. Reviewed daily check in sheet and no reports of suicidal ideations or intent. Client Response/Progress/Benefit: [] Pt was an active participant in group discussion. Attentive. Daily symptom tracker notes 3/5 for anxiety/irritability and 2/5 for depression. Emotion for today is hopeful. Talked at length regarding relationship conflicts over the weekend. Trust issues with her which resulted in verbal arguments and throwing his stuff outside. Insight that she may have over-reacted however states that when she gets angry or focused on something that could have done wrong she struggles with emotional regulation and rational thought. Long-standing trust issues with which appear to be a significant anger trigger for patient. No progress noted due to struggles with emotion regulation over the weekend. Benefited from group support, encouragement, and feedback. Will continue in IOP to maintain prevent decompensation, stabilize mood, increase coping skills, and improve functioning. Narrative Note: []
--- NOTE | 2022-12-14 10:10 | BH.SGPN.GN ---
Behaviors/Verbalizations/Mental Status: []Eye contact is good. Motor activity is appropriate. Appearance is casual. Speech is Appropriate. Mood is anxious and dysthymic. Affect is congruent. Thoughts are linear and logical. No evidence of psychosis. Client Response/Progress/Benefit: []Pt was an active participant in group discussions. Engaged and provided feedback with group on defining anxiety. Along with peers, pt worked to identify the benefits of anxiety. Participated during interactive discussion on how anxiety impacts one physically, cognitively, and behaviorally. Completed worksheet on how anxiety impacts pt physically, cognitively, and behaviorally. Pt shared physically pt experiences increased blood pressure, tight chest, and stomach ache. Benefited from increased insight into anxiety's benefits and how diagnosable anxiety impacts functioning. Will continue in IOP tx to promote self-care and thought challenging, and further increase mood stability. Narrative Note: []
--- NOTE | 2022-12-14 11:10 | BH.SGPN.GN ---
Behaviors/Verbalizations/Mental Status: []Pt casually dressed and groomed. Eye contact good. Motor activity appropriate. Speech within normal limits. Affect congruent, mood euthymic. Thoughts linear, logical, no signs of hallucinations or delusions. Client Response/Progress/Benefit: []Pt was a passive participant in full group discussion, however did take notes, attentive to others, and showed increased engagement in small group discussion. Pt identified anxiety safety behaviors for self to include: taking on others problems, binge eating, staying in bed all day, and getting on facebook. Attentive during psychoeducation on mindfulness and ways to utilize mindfulness techniques to improve anxiety management. The group receptive to learning about belly breathing and grounding tools. Engaged and attentive during group brainstorm of healthy anxiety reduction skills including thought challenging and behavioral changes. Appeared to benefit from practicing in the moment coping skills and increasing repertoire of anxiety management skills. Pt will continue IOP tx to continue use of healthy coping skills, reduce reactivity, and prevent decompensation.
--- NOTE | 2022-12-16 10:12 | BH.SGPN.GN ---
Behaviors/Verbalizations/Mental Status: []Pt alert and oriented, casually dressed and groomed. Eye contact good. Motor activity appropriate. Speech within normal limits. Affect congruent, mood euthymic and tired. Thoughts linear, logical, no signs of hallucinations or delusions. Client Response/Progress/Benefit: []Pt was an active participant in group discussions. Attentive during psychoeducation on 4 types of conflict styles (Competing, Collaborating, Avoiding, and Accommodating). Worked with group to define conflict and identify how conflict is helpful. With peers identified barriers to addressing or managing conflict which included: not wanting to hurt others, lack of communication skills, and cognitive distortions. Pt believes they use the competing style the most. Pt shared she will ?be aggressive, but it?s triggered by anxiety and just spills out.? Pt sees this leads to hurting others and feeling guilty. Benefited from group due to increase insight and awareness of benefits to conflict, conflict styles, and obstacles to managing conflict. Will continue in IOP to prevent decompensation, increase acceptance skills, and process grief. Narrative Note: []
--- NOTE | 2022-12-16 11:10 | BH.SGPN.GN ---
Behaviors/Verbalizations/Mental Status: [] Eye contact is good. Motor activity is appropriate. Appearance is casual. Speech is Appropriate. Mood is anxious/irritable. Affect is congruent. Thoughts are linear and logical. No evidence of psychosis. Client Response/Progress/Benefit: [] Pt was an active participant in group discussions and activity. Attentive during psychoeducation. Pt was engaged during the group activity and practiced conflict resolutions skills with an emphasis on stepping outside her typical conflict style. Along with peers was able to reflect on what conflict resolution skills she used during the activity. Pt chose to continue to work on the conflict resolution skill of taking turns speaking for the rest of the week. Reports that when upset she tends to dominate and not allow others to speak. Benefited from practicing conflict resolution skills. Will continue in IOP to prevent decompensation, increase healthy coping, and to improve functioning. Narrative Note: []
--- NOTE | 2022-12-17 09:00 | BH.SGPN.GN ---
Behaviors/Verbalizations/Mental Status: [] Pt alert and oriented, neatly dressed and groomed. Eye contact good. Motor activity appropriate. Speech within normal limits. Affect congruent, mood euthymic. Thoughts linear, logical, no signs of hallucinations or delusions. Reviewed pt?s symptom tracker, no risk for suicidal ideation, plan, or intent 12/17/22 Client Response/Progress/Benefit: []Pt responded well to session, attentive and engaged. Pt reports feeling optimistic this morning as pt and her have been getting along better over the past few days. Pt is not sure what changed, but then pt realized maybe I'm starting to change. Pt shared coming back to IOP has helped pt gain more insight and challenge her perspective. Pt is working on coping with the grief and anger pt feels towards her change in functioning and health. Pt stated that learning how to accept will be helpful with this. Pt appeared to benefit from challenging perspective. Pt will continue IOP tx to prevent decompensation, improve acceptance skills, and increase ability to challenge distortions. Narrative Note: []
--- NOTE | 2022-12-17 10:10 | BH.SGPN.GN ---
Behaviors/Verbalizations/Mental Status: [] Eye contact is good. Motor activity is appropriate. Appearance is casual. Speech is Appropriate. Mood is depressed/irritable. Affect is congruent. Thoughts are linear and logical. No evidence of psychosis. Client Response/Progress/Benefit: [] Pt was an active participant in group discussions. Attentive during psychoeducation. Participated during interactive discussion on types of support which included; friends, family, professionals, medications, clubs, hobbies, mentors, pets, local agencies, and certain locations (nature, etc). Along with peers identified and discussed obstacles that can prevent one from seeking support which included; isolation, dishonesty, lack of communication, denial, fear of vulnerability, shame, and stigma. Participated in experiential activity and was able to connect this activity to group topic. Benefited from increased awareness of the benefits and importance of maintaining a balanced support system. Will continue in IOP to prevent decompensation, increase healthy coping, and improve functioning. Narrative Note: []
--- NOTE | 2022-12-20 09:00 | BH.SGPN.GN ---
Behaviors/Verbalizations/Mental Status: [] Pt eye contact good, neat and casually dressed, motor activity appropriate, speech normal rate and tone, mood euthymic, congruent affect, thoughts linear and intact, no evidence of delusions or hallucinations. Per pt's symptom tracker, no report of SI, plan, or intent as of this date Client Response/Progress/Benefit: [] Client respond well to session as evidenced by listening attentively to others and sharing thoughts and feelings. Client reported mental health positive as communicating more consciously with her and found they were able to get along better throughout the weekend. Client reported additional positive as buying a picnic basket to present more opportunities for her to socialize with her extended family as pt's apartment is not large enough to host everyone. Client stated stressor as an upcoming get together her sister was planning. Discussed that she is nervous as she and her sister tend to butt heads. Did well to identify strategies to prevent unnecessary conflict Seemed to benefit from support from peers. Client to continue IOP to continue use of healthy coping skills, work on continued communication with supports, and prevent decompensation. Narrative Note: []
--- NOTE | 2022-12-20 10:10 | BH.SGPN.GN ---
Behaviors/Verbalizations/Mental Status: [] Eye contact is good. Motor activity is appropriate. Appearance is casual. Speech is Appropriate. Mood is euthymic. Affect is congruent. Thoughts are linear and logical. No evidence of psychosis. Client Response/Progress/Benefit: [] Client was an attentive during interactive group discussions by writing notes and sharing when prompted. Attentive during psychoeducation on the six types of boundaries (physical, emotional, intellectual, sexual, time, and material) AEB note-taking. Along with peers contributed to interactive discussion on defining what a boundary is in mental health. Client along with peers identified challenges to setting boundaries which included: fear of other's response, guilt, fear of losing relationships, and lack of confidence. Client along with peers identified the benefits to setting boundaries. Client reported she struggles with setting boundaries because she has fear of hurting others and impacting relationships. Client benefited from increased awareness and insight on the importance/benefit to setting health boundaries. Will continue in IOP to increase positive self care, increase emotional regulations skills, and improve functioning.
--- NOTE | 2022-12-20 11:10 | BH.SGPN.GN ---
Behaviors/Verbalizations/Mental Status: []Pt alert and oriented, neatly dressed and groomed. Eye contact good. Motor activity appropriate. Speech within normal limits. Affect congruent, mood euthymic. Thoughts linear, logical, no signs of hallucinations or delusions. Client Response/Progress/Benefit: []Pt responded well to session, engaged and contributing. Pt attentive during psychoeducation on the different boundary styles. Pt reports having a porous boundary setting style which leads to pt struggling to ask for help and not fully opening up to others. Able to connect impact current boundary styles impact on functioning. Pt was given a handout on strategies for healthy boundary setting. Appeared to benefit from increasing insight to boundary setting and the impacts on mental health. Pt wants to work on listing the pros and cons of setting vs not setting the boundary. Will continue IOP tx to promote use of healthy coping skills, improve mood stability, and reduce negative thinking patterns. Narrative Note: []
--- NOTE | 2022-12-21 10:14 | BH.SGPN.GN ---
Behaviors/Verbalizations/Mental Status: []Client alert and oriented, casually dressed and groomed. Eye contact good. Motor activity appropriate. Speech within normal limits. Affect congruent, mood euthymic. Thoughts linear, logical, no signs of hallucinations or delusions. Client Response/Progress/Benefit: []Client receptive of session AEB providing input throughout, listening attentively to others, and taking notes. Attentive throughout psychoeducation on the cognitive triangle and maintenance cycles. Worked on identifying own vicious cycle. Engaged in group discussion reviewing the impact of daily activities and behaviors on either reinforcing unhealthy maintenance cycles and depression or assisting in reducing symptoms (?down? vs ?up? activities). Client identified common ?down? activities they engage in as: staying in bed, not changing clothes or showering for the day, social media, and avoiding others. Common ?Up? activities client identified included: music, reaching out to supports, reading, cuddling her pets, and personal hygiene. Appeared to benefit from increased awareness of current behaviors and impact these have on mental health. Pt to continue IOP to increase healthy coping skills, challenge distortions, and prevent decompensation. Narrative Note: []
--- NOTE | 2022-12-21 11:10 | BH.SGPN.GN ---
Behaviors/Verbalizations/Mental Status: [] Eye contact is good. Motor activity is appropriate. Appearance is casual. Speech is Appropriate. Mood is anxious/irritable. Affect is congruent. Thoughts are linear and logical. No evidence of psychosis. Client Response/Progress/Benefit: [] Pt responded well to session, attentive and engaged in group discussions and activity. Group shared having patience and being willing to re-evaluate helped the group be successful during activity. Group discussed values and the benefits that knowing one's values can have on one's mental health. Pt explored own values and identified family relationships, emotional health, and spirituality as their top values. Pt set a goal to to take medications, attend therapy, practice sophia, give affection to others, and focus on greater good to live according to values. Pt appeared to benefit from exploring values and creating a weekly goal. Will continue in IOP to prevent decompensation, increase healthy coping, and to improve functioning. Narrative Note: []
--- NOTE | 2022-12-22 15:05 | BH.MTP_ITS ---
Treatment Plan Review Demographics Date of Admission:: 11/29/22 Date of Treatment Plan Review:: 12/22/22 Admitting Diagnoses:: Generalized anxiety disorder F 41.1; Major depressive disorder, recurrent, severe without psychosis Current Diagnoses:: Generalized anxiety disorder F 41.1; Major depressive disorder, recurrent, severe without psychosis Patient Status Patient's Response to Treatment:: Pt has responded well to treatment AEB pt consistently attending IOP sessions and slight reduction of depression and overall symptoms since admission. Pt contributes well during individual sessions and is engaged during group sessions. Pt applies coping skills outside of IOP and reports overall mood is improving and pt is increasing emotional regulation and acceptance skills. Status of Current Problems and Symptoms: Pt's symptoms are ongoing and have not significantly changed since admission. Pt is reporting moderate-severe symptoms of anxiety per the DSM-5, sleep issues, problems with memory, mild depression, and moderate anger. Pt still struggles with accepting her change in functioning, grief, and adjusting to her physical limitations which impacts pt's ability to participate in group at times. Additionally, pt reports marital and financial stressors. Progress Problem #1: Problem Name:: Anxiety, physical symptoms, avoidance, and rumination. Status of Goals:: Objective 1-not complete. Pt?s scores for anxiety have not decreased since admission, but pt reports less physical symptoms. Pt continues to report ruminations that impact her ability to sleep and health anxiety. Objective 2- not complete. Pt is working on catching and reframing her distorted thought patterns that reinforce anxiety. Team Recommendations:: Treatment tx encourages pt to continue working on these objectives as pt's DSM-5 scores have not changed for anxiety. Pt reports less physical symptoms, but pt still reports ruminations that impact sleep and overall functioning. Pt also encouraged to continue working on effective communication with her and daily self-care. Problem #2: Problem Name:: Depression, hopelessness, guilt, anger, and feeling like a burden. Status of Goals:: Objective 1- complete with ongoing work encouraged. Pt?s DSM-5 scores for depression have decreased by 33% since admission and pt reports getting out of the house and not feeling alone has helped her mood. Objective 2- in progress. Pt is learning different ways to increase acceptance of her change in functioning and pt is working on finding new things she can do to find QOL. Pt still struggles with anger, crying spells, and grief which is to be expected. Team Recommendations:: Treatment tx encourages pt to continue working on these objectives to further increase acceptance and improve her quality of life after change in functioning. Pt encouraged to continue going to her mandaen group and also discussed consistently attending the Stroke Support Group at [facility].
== END 2022-12-23 23:59 ==
LOC: BHIOP 08:00
PROVIDERS: PCP Student in an Organized Health Care Education/Training Program; Referring Provider Psychiatry & Neurology Psychiatry; Visit Provider Psychiatry & Neurology Psychiatry
DX: F33.2 Major depressive disorder, recurrent severe without psychotic features (principal); F41.1 Generalized anxiety disorder; R33.9 Retention of urine, unspecified; Z86.73 Personal history of transient ischemic attack (TIA), and cerebral infarction without residual deficits; Z87.820 Personal history of traumatic brain injury; Z95.0 Presence of cardiac pacemaker
CPT/HCPCS: S9480; 90834; 90837; 90853

== ENCOUNTER 2022-12-07 15:00 | Outpatient (RCR) | payer OTHER, SELFPAY ==
[2022-02-01 15:24] VITALS: BMI 33.4
--- NOTE | 2022-09-02 15:58 | HP.PTEVAL_ITS ---
Patient's Visit Information ANGELITO LIVE is a 57 year old F referred to Physical Therapy by Dr. Slim Denson DO with a diagnosis of gait diorder. Date of Evaluation: 09/02/22 Physical Therapist: RAMIRO HansonT, OCS, CSCS - Visit Plan Frequency: 2x /Week Duration: 4-6 Weeks Plan: 2x/week for 6-8 weeks for...aquatic therapy to start for... 1. LE and core strength to I(pt willing possibly, or to land for HEP instruct). 2. work on gait and balance wihtout hands on object - Subjective Extensive PMH including described defibrillation in 2019, not sure what from.. Has pacemaker form around that time. Has had some strokes and had aortic dissection fixed recently. Using wh walker to get around. 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 Cpould not move L foot upon awaking form that oarta surgery in 2021. Has neurologist and has MRI that showed spot on spine that are damaged. CT scan from heart doctor last month. Is here to get stronger. most recent stroke was in June. Needs to be stronger. Uses walker with wheels since June 2021 for balance. Has steps at home 7 to enter with rail. Using walker steps. Spends day sleeping alot. Sleep is OK, has pain sometimes in LB. Has tMJ and being treated else where. Was an employee at [employer] and unable right now. spelling, memory and thinking are all off. Regular exercises: No. Live with . Wants to be on some exercise. Precaution is not lifting over 20# - Pain LBP Pain Intensity (Out of 10): Unrated - Objective Walks slowly with wh walker I 250 feet to PT with short R step[facility]. Walks without AD with very short steps and poor confidence but able to score FGA this way.Does not push off with gait at ankle. Steps are r eciprocal with 2 rail up and down but very weak and mildly unstable. AROM WFL in LE except DF limited to -4 arom but has full PROM, very weak at 3/5, inv/ev WFL and 3/5 strength, PF 3+ and WFL AROM. Knee AROM WFL and 3+ strength hesitant in L knee ext to previous patella sublux. Hips 3/5 abd and ext adn 3+ flexion. reflexes 2/3 patella and achilles. Core strength 3/5 abs and back extension. sensation LE WNL to gross light touch. - Balance/Special Test Scores Functional Gait Assessment Score: 16 % Disability: 46.6700 Lower Extremity Functional Score: 22 TUG Test Time Seconds: 17 30 Second Chair Rise Test Seconds: 10 - Goals Goal 1:: Pt I in appropriate pool ex for group home I to manage weakness Goal Time Frame: 4-6 Weeks Goal 2:: FGA score 22/30 Goal Time Frame: 4-6 Weeks Goal 3:: 12 score on TUG and 15 on 30 sec sit to stand. Goal Time Frame: 4-6 Weeks Goal 4:: Pt feel 50% better in overall mobility Goal Time Frame: 4-6 Weeks Goal 5:: 42 LEFS Goal Time Frame: 4-6 Weeks - Rehabilitation Potential Physical Therapy Diagnosis: wakness and gait difficulty and very sedentary. Rehabilitation Potential: Good - Anticipated Interventions Patient/Client Instruction: Educate patient on: Condition, Plan of Care For the Purpose of:: To decrease pain, To increase ROM, To improve nutrient delivery to tissue, To improve muscle performance and motor function, To increase tolerance to activity/condition/position, To improve ability of physical actions for home/community/work/leisure, To improve gait and locomotor functions Therapeutic Exercise to Include: Strength training, Postural training, Flexibilty training, Gait and locomotor training, In an aquatic setting, Passive ROM, Active ROM For the Purpose of:: To decrease pain, To increase ROM, To improve nutrient delivery to tissue, To increase tolerance to activity/condition/position, To improve ability of physical actions for home/community/work/leisure, To improve gait and locomotor functions Thank you for the opportunity to evaluate your patient. For Medicare and Medicare HMO plans, please review the plan of care and approve it. It will need to be FAXED BACK to us at [phone] for Medicare purposes. For Medicare only, by signing this I certify the plan of care. Please let me know if there are questions or concerns regarding this plan of care. Physician Signature: Date:
--- NOTE | 2022-11-05 15:53 | HP.PTREVAL ---
Re-Evaluation Intro: Dr. Slim Denson, DO, It has been my pleasure to treat ANGELITO LIVE over the last 16 visits for gait diorder. Please see the progress note below for an update on the physical therapy plan of care! Subjective Subjective: A lot better. I can walk further and in the house without walker sometimes. Uses it outside of house. uses walker for balance and pain due to muscle and nerve problems. Pain this week has been up to 5/10 in LB. Walking makes it worse. Sleeping is OK with pain meds. HEP going well, daily. Has I pool program, and will await disability and then will continue on own. Would like to learn other equipment in gym. Objective Objective/Function: FGA is done today without AD and does not trust R leg and gets pain up to 7/10. However , she could not even do this test on day one. REcommended continue use of AD based on score. TUG is improved by 3 seconds. 30 sec sit to stand is same as IE. Pt feeling better and performing slightly better without increasing pain, held back by not yet being able to afford I pool memebership. appropriate to try to get I with gym ex for when she can join and/or HEP for general ex in that whiting snot come through. Plan Plan Plan: 2x/week for 4 weeks for 1. Pt to bring cane and work on gait with cane vs wh walker. 2. Teach gym and HOME ex for trunk and postural and LE strength monitorring R LE pain. Work to I with each based on patients desires and abilities. Same and new goals appropriate for new POC. Fair prognosis. Balance/Gait/Functional tests Balance/Special Test Scores Functional Gait Assessment Score: 16 % Disability: 46.6700 Lower Extremity Functional Score: 33 TUG Test Time Seconds: 14 Tug Test: <20 sec.=mostly independent 30 Second Chair Rise Test Seconds: 10 Goals Goals Goal 1:: Pt I in appropriate pool ex for shelter I to manage weakness Goal Time Frame: 4-6 Weeks Goal Progress: Goal Met Goal 2:: FGA score 22/30 Goal Time Frame: 4-6 Weeks Goal Progress: Progressing, approp Goal 3:: 12 score on TUG and 15 on 30 sec sit to stand. Goal Time Frame: 4-6 Weeks Goal Progress: Progressing Goal 4:: Pt feel 50% better in overall mobility Goal Time Frame: 4-6 Weeks Goal Progress: 40% approp Goal 5:: 42 LEFS Goal Time Frame: 4-6 Weeks Goal 6:: I appropr HEP for LE strength adn gait to do at home I Goal Time Frame: 4-6 Weeks Anticipated Interventions Anticipated Interventions Patient/Client Instruction: Educate patient on: Condition and Plan of Care For the Purpose of:: To decrease pain, To increase ROM, To improve nutrient delivery to tissue, To improve muscle performance and motor function, To increase tolerance to activity/condition/position, To improve ability of physical actions for home/community/work/leisure and To improve gait and locomotor functions Therapeutic Exercise to Include: Strength training, Postural training, Flexibilty training, Gait and locomotor training, In an aquatic setting, Passive ROM and Active ROM For the Purpose of:: To decrease pain, To increase ROM, To improve nutrient delivery to tissue, To increase tolerance to activity/condition/position, To improve ability of physical actions for home/community/work/leisure and To improve gait and locomotor functions Re-Evaluation Ending Re-evaluation ending: Please do not hesitate to contact me at [phone] by phone or if you have questions or concerns regarding this new plan of care! Sincerely, Allan Castillo, DPT, OCS, CSCS
--- NOTE | 2022-12-07 15:59 | HP.PTDCSUM ---
Discharge Summary D/C summary: It has been my pleasure to treat ANGELITO LIVE referred by Dr. Slim Denson DO, with the diagnosis of gait disorder for a total of 23 visit(s). Discharge Date: 12/07/22 Please see the following information for a summary of their discharge status. Subjective Subjective: L shouldr adn neck staarted hurting for no apparent reason Tuesday morning 4 days ago. Almost went to ER but has used icy hot adn put up with it. Walking i apartment more without AD now and then. Turning in kitchen multiple times still causes lack of balance. Suspected TIA in ER 2 weeks ago. HEP: stands at sink for exercises but not daily. Not getting in pool. May get in there soon. I forget sink exercises. Pain LBP: Pain Intensity (Out of 10): 7 RLE: Pain Intensity (Out of 10): 7 LLE: Pain Intensity (Out of 10): 0 L neck and shoulder: Pain Intensity (Out of 10): 8 Overall Improvement % Improvement: 25 Objective Objective/Function: 15 minutes late today due to pain. Using wh walker to get into PT mod I, trasminervaers mod I chair. FGA improving but no time today due to patient tardiness for TUG. Goals Goal 1:: Pt I in appropriate pool ex for [facility] I to manage weakness Goal Progress: Goal Met Goal 2:: FGA score 22/30 Goal Progress: Goal Met Goal 3:: 12 score on TUG and 15 on 30 sec sit to stand. Goal Progress: not tested. Goal 4:: Pt feel 50% better in overall mobility Goal Progress: no, compliance? Goal 5:: 42 LEFS Goal Progress: Progressing Goal 6:: I appropr HEP for LE strength adn gait to do at home I Goal Progress: Goal Met Plan Plan: d/c, pt will continue to use wh walker at home and ex per HEP : home 2x/week, pool 2x/week and gym 2x/week. Will see doctor in a couple days and talk about her new shoulder pain L. D/C Information Discharge Comments: to HEP, gym and pool. Pt to address shoulder pain with doctor in 3 days prior to starting in gym. d/c sentence: If there are questions or concerns regarding this patient's physical therapy, please feel free to call me at [phone]. Thank you for the referral of this patient. Sincerely, Allan Castillo, DPT, OCS, CSCS Balance/Gait/Functional tests Balance/Special Test Scores Functional Gait Assessment Score: 24 % Disability: 20.0000 Lower Extremity Functional Score: 29 TUG Test Time Seconds: 14 Tug Test: <20 sec.=mostly independent 30 Second Chair Rise Test Seconds: 10
--- NOTE | 2022-12-16 14:50 | BH.MDN ---
Multi-Disciplinary Note Note 60-min Individual: Time Started:: 09:15 Date: 12/16/22 Purpose of session/treatment goals addressed:: To work on goal #1 of pt's tx plan. Another goal was to normalize emotions associated with grief and discuss acceptance skills. Eye Contact:: Good Motor Activity:: Appropriate Appearance:: Neat Speech:: Tangential Mood:: Euthymic Affect:: Congruent Thoughts:: Circular and No evidence of hallucinations/delusions noted Staff Interventions:: thought challenging, psychoeducation on: (grief), strengths perspective and taught coping skills Client Response:: Pt responded well to session, open to meeting with therapist. Pt shared that she and her have been doing better, but pt was not sure why. Pt feels that maybe because she is feeling better, he is feeling better. Pt used session to mostly verbally process her grief, discussing her daughter and pt's functioning. Pt stated that there are days when it is easier to accept and days when grief hits her very hard. Pt shared she still feels anger that she cannot work, go to the store alone, or keep her house clean. Pt is working on challenging her perspective and focusing on accepting what she can do. Pt did well with this over the week AEB pt going to a small [employer] study group and going to the store with her . Pt is responding well to acceptance skills, so pt encouraged to practice these skills with the complex emotions in grief. Pt described how she still feels angry and guilty about her daughter's . Pt shared whenever she grieves about her daughter she also gets mad at herself for not moving on. Pt responded well to the jar metaphor and reminding self that emotions are not good or bad. Pt encouraged not to recycling tech how she feels, rather pay attention to it and focus on what she needs. Pt also encouraged to not get rid or move on from her grief, but to learn how to make a bigger jar and live alongside her grief. Pt shared this was helpful and pt will mindfully practice this during the week. Risks/Concerns:: No SI, no thoughts of , no HI. Progress Toward Goals/Plan:: Pt is making progress towards tx goals AEB pt's self-report of improving perspective and mood since starting IOP. Pt feels her relationship with her is improving and pt feels this is also contributing to her improved mood. Pt continues to experience grief, which is to be expected. Pt also endorses anger towards her functioning, ruminations, negative thinking patterns, anxiety, and a depressed mood. Pt will continue IOP tx to promote mood stability, reduce anxiety and anger, and improve daily functioning. Time Stopped:: 10:10
== END 2022-12-07 19:00 | disposition home or self-care (01) ==
LOC: PT 15:00
PROVIDERS: PCP Student in an Organized Health Care Education/Training Program; Visit Provider Student in an Organized Health Care Education/Training Program
DX: R26.9 Unspecified abnormalities of gait and mobility (principal); M54.41 Lumbago with sciatica, right side; M54.42 Lumbago with sciatica, left side; M26.619 Adhesions and ankylosis of temporomandibular joint, unspecified side; I69.351 Hemiplegia and hemiparesis following cerebral infarction affecting right dominant side; I69.354 Hemiplegia and hemiparesis following cerebral infarction affecting left non-dominant side
CPT/HCPCS: 97110; 97113; 97116; 97162; 97164; 97530

== ENCOUNTER 2022-12-24 08:29 | Outpatient (RCR) | payer OTHER, SELFPAY ==
[2022-02-01 15:24] VITALS: BMI 33.4
--- NOTE | 2022-12-24 09:05 | BH.SGPN.GN ---
Behaviors/Verbalizations/Mental Status: [] Eye contact is good. Motor activity is appropriate. Appearance is casual. Speech is Appropriate. Mood is anxious. Affect is congruent. Thoughts are linear and logical. No evidence of psychosis. Reviewed daily check in sheet and no reports of suicidal ideations or intent. Client Response/Progress/Benefit: [] Pt was an active participant in group discussion. Attentive. Daily symptom tracker notes 05/30 for anxiety and irritability. Mental health win was clearing off her table which has been covered with stuff forever. Briefly elaborated on how this positively impacted her mental health. Pt was focused and ruminating on an interaction with her this AM it was both a win and a stressor. She confronted her about her belief that he doesn't want to do things with her. She has confronted him about his numerous times as their relationship struggles are a significant stressor for patient. When asked why this time was beneficial patient states that she told him in a very calm and clear manner. In pt's perspective she utilized assertive communication. Emotion is stressed and anxious regarding if her will address this as I said this as I was walking out the door to give him time to think. Limited progress noted per pt report. Beneifted from group support, encouragement, and feedback. Will continue in IOP to prevent decompensation and stabilize mood. Narrative Note: []
--- NOTE | 2022-12-24 09:10 | BH.SGPN.GN ---
Behaviors/Verbalizations/Mental Status: [] Pt alert and oriented, neatly dressed and groomed. Eye contact good. Motor activity appropriate. Speech within normal limits. Affect congruent, mood euthymic. Thoughts linear, logical, no signs of hallucinations or delusions. Reviewed pt?s symptom tracker, no risk for suicidal ideation, plan, or intent 12/31/22 Client Response/Progress/Benefit: []Pt responded well to session, attentive and engaged. Pt reports feeling neutral this morning and per pt's daily symptom tracker her mood is less depressed today. Pt shared her mental health wins today which included getting self-care time alone yesterday, helping her son, and enjoying a shower. Pt shared she has no stressors today, which therapist helped pt reflect back on how emotions ebb and flow in intensity which pt appeared to benefit from. Pt will continue IOP tx to promote mood stability, improve daily functioning, and increase distress tolerance. Narrative Note: []
--- NOTE | 2022-12-24 10:10 | BH.SGPN.GN ---
Behaviors/Verbalizations/Mental Status: []Pt alert and oriented, casually dressed and groomed. Eye contact good. Motor activity appropriate. Speech within normal limits. Affect congruent, mood euthymic. Thoughts linear, logical, no signs of hallucinations or delusions. Client Response/Progress/Benefit: [] Pt receptive to session AEB contributing to small group discussion, as well as listening attentively to others, and taking notes. Worked with group to brainstorm the positive and negative aspects of stress on physical and mental health. Group did well to identify the benefits of stress as well as the impact of distress on performance, relationships, and mental health. Pt identified their personal top stressors as: medical issues, jewish, and children. Pt seemed to benefit from increased awareness of current stressors and impact stress has on mental health. Recommended to continue IOP tx to increase consistent use of healthy coping, decrease irritability, and prevent decompensation.
--- NOTE | 2022-12-24 11:15 | BH.SGPN.GN ---
Behaviors/Verbalizations/Mental Status: []Pt alert and oriented, neatly dressed and groomed. Eye contact good. Motor activity appropriate. Speech within normal limits. Affect congruent, mood anxious. Thoughts linear, logical, no signs of hallucinations or delusions. Client Response/Progress/Benefit: []Pt was an active participant in group discussions and experiential activity. Attentive during psychoeducation on the 4 A's (Avoid, adapt, alter, accept) of coping with stress as well as strategies to identify stressors in which one has no control, little control, or a great deal of control over. Was able to identify the connection between the experimental activity and utilization of stress management skills. Pt was unable to physically participate in the activity, but pt observed and shared ?I wanted to quit for them.? Pt stated the urge to quit happens a lot when pt is stressed. The group linked effective communication as one of the biggest strategies for managing stressors. Benefited from increased awareness of stress management strategies. Will continue in IOP to promote mood stability, reinforce healthy coping skills, and improve emotional regulation. ??? Narrative Note: []
--- NOTE | 2022-12-24 15:58 | BH.COMM ---
Communication Note Communication with Client Communication Note: Pt no called/no showed for her scheduled IOP group and individual session on 12/23/22 so pt was unable to meet with her individual therapist for the week of 12/20/22-12/24/22. Pt will meet with individual therapist next week.
--- NOTE | 2022-12-30 09:10 | BH.SGPN.GN ---
Behaviors/Verbalizations/Mental Status: [] Eye contact is good. Motor activity is appropriate. Appearance is casual. Speech is Appropriate. Mood is depressed/irritable. Affect is congruent. Thoughts are linear and logical. No evidence of psychosis. Reviewed daily check in sheet and no reports of suicidal ideations or intent. Client Response/Progress/Benefit: [] Pt was an active participant in group discussion. Attentive. Daily symptom tracker notes 04/29 for depression/anxiety. Pt shared a very overwhelming event yesterday stating she has a breakdown while shopping yesterday. Reports panic attacks and overwhelming negative thoughts that she would be better off . Why am I alive?. I should have when she had heart heart attack. Reports this all happened in the middle of [place]. She reports feeling like a burden to her b/c he doesn't ever want to spend time with me. Feels neglected. He physical struggles (walker, tired easily, etc) have also been causing significant negative thoughts and depression. Utilizes humor to cope stating while smiling I'm just such as mess. Group provided support and empathized which was beneficial. Her functioning continues to be impacted by her depression. Will continue in IOP to prevent decompensation, increase healthy coping, and improve functionoing. Narrative Note: []
--- NOTE | 2022-12-30 10:14 | BH.SGPN.GN ---
Behaviors/Verbalizations/Mental Status: []Eye contact is good. Alert and oriented. Motor activity is appropriate. Appearance is casual. grooming is appropriate. Speech is Appropriate. Mood is euthymic and anxious. Affect is congruent. Thoughts are linear and logical. No evidence of psychosis or hallucinations. Client Response/Progress/Benefit: []Client was an active participate AEB providing contributions, listening attentively to others, and taking notes throughout. The group identified the impact of emotions on communication such as blaming or externalizing, shutting down, misperceiving the communication, lashing out, and not being able to express oneself. During group activity, client identified feeling anxious when another peer was walking with their eyes closed. Pt reflected she did not want him to get hurt but also did not want to prevent him from continuing to complete the task. Provided insight that situation in which she has limited control often leads to increased anxiety. Client benefited from session by gaining an increased understanding on the importance of managing emotions to continue IOP to further improve mood stability, improve use of skills for better symptom management, and prevent decompensation. Narrative Note: []
--- NOTE | 2022-12-30 11:10 | BH.SGPN.GN ---
Behaviors/Verbalizations/Mental Status: []Pt alert and oriented, casually dressed and groomed. Eye contact good. Motor activity appropriate. Speech within normal limits. Affect congruent, mood euthymic. Thoughts linear, logical, no signs of hallucinations or delusions. Client Response/Progress/Benefit: [] Pt engaged in session AEB pt listening attentively to peers and providing input. Attentive during psychoeducation on 4 zones of regulation. Pt able to identify feelings and behaviors for each zone. Pt identified coping skills one can use to support self in each zone. Reported skills will practice when needs to manage emotions include: reaching out to supports, cleaning, and using skill delay, distract, and decide to decrease reactivity. Benefited from increased education on zones of regulation or stages of alertness for emotions and healthy coping skills to use for each zone. Pt to continue IOP to increase consistent use of skills, decrease reactivity, and prevent decompensation.
--- NOTE | 2022-12-31 10:15 | BH.SGPN.GN ---
Behaviors/Verbalizations/Mental Status: []Pt alert and oriented, casually dressed and groomed. Eye contact good. Motor activity appropriate. Speech within normal limits. Affect congruent, mood content. Thoughts linear, logical, no signs of hallucinations or delusions. Client Response/Progress/Benefit: []Pt receptive of session, actively engaged throughout AEB taking notes and listening to discussion. Appeared to connect with group topic of cognitive distortions and the impact of thought patterns on mental health, coping behaviors, and relationships. Pt reports connecting with distortions of jumping to conclusions, emotional reasoning, and catastrophizing. Pt stated she struggles with assuming she knows what her is thinking which has led to additional conflict between them in the past. Pt appeared to benefit from gaining insight on distorted thinking patterns and how this impacts overall mental health. Will continue IOP tx to improve conflict resolution, increase healthy coping, and prevent decompensation. Narrative Note: []
--- NOTE | 2022-12-31 11:15 | BH.SGPN.GN ---
Behaviors/Verbalizations/Mental Status: [] Eye contact is good. Motor activity is within normal limits. Appearance is casual. Speech is Appropriate. Mood is euthymic. Affect is congruent. Thoughts are linear and logical. No evidence of psychosis. Client Response/Progress/Benefit: [] Pt was an active participant during group discussions and activity. Pt was placed in a smaller group and participated in quiz-show format in which small groups competed against each-other to answer questions based on identifying, challenging, and reframing cognitive distortions. Pt was engaged in the smaller group, participated in group interactions to brainstorm answers, and appeared to be comprehending cognitive distortions. Stated learning that ?I often personalize things which may impact my ability to see things from other people's perspectives?. Benefited from gaining further insight and awareness of cognitive distortions as well as practicing ways to reframe and challenge thoughts. Will continue in IOP to improve conflict resolution skills, stabilize mood, and increase healthy coping skills. Narrative Note: []
--- NOTE | 2022-12-31 15:46 | BH.MDN_ITS ---
Multi-Disciplinary Note Note 60-min Individual: Time Started:: 12:00 Date: 12/31/22 Purpose of session/treatment goals addressed:: To discuss discharge plan and to process current stressors and symptoms. Eye Contact:: Good Motor Activity:: Appropriate Appearance:: Neat Speech:: Tangential and Rambling Mood:: Euthymic Affect:: Congruent Thoughts:: Linear, Logical and No evidence of hallucinations/delusions noted Staff Interventions:: thought challenging, CBT techniques, discharge evelyn nning, strengths perspective and taught coping skills Client Response:: Pt responded well to session, open to meeting with therapist. Pt uses most of session to process her current stressors and pt often shares I got off topic. Pt has been feeling stressed and frustrated with her lately and pt is still trying to adapt with her loss of functioning. Pt does not have an outpatient therapist right now, so therapist gave pt some options. Discussed potentially going back to stroke support group as pt found that helpful before. Pt shared being at IOP has improved her mood, but pt still ruminates and becomes easily irritable. Pt does well when therapist uses cognitive restructuring techniques which helps pt look at situations with a different lens. Pt recognizes that she will jump to conclusions before thinking through her response. Pt reports benefitting from therapist listening to pt and giving ideas for coping and giving validation. Pt is still having issues with getting out of bed in the morning, which impacts he social functioning and leads to missing appointments at times. Pt shared she has never been a morning person but being less mobile has not helped. Pt could benefit from home health services, but therapist will need to explore criteria. Risks/Concerns:: Pt denies any thoughts of or suicidal ideations. Progress Toward Goals/Plan:: Pt reports overall improvement in her mental health symptoms and ability to regulate emotions. Pt did have a recent break down which was triggered by conflict with her . Pt receptive to discussing aftercare and was given options for outpatient counseling. Pt reports she has been practicing more acceptance skills and pt can continue to benefit from processing the changes in her functioning. Pt will continue IOP tx to establish aftercare, reinforce healthy coping skills, and gain additional resources to support mental and physical health. Time Stopped:: 12:55
--- NOTE | 2023-01-04 09:05 | BH.SGPN.GN ---
Behaviors/Verbalizations/Mental Status: [] Eye contact is good. Motor activity is appropriate. Appearance is casual. Speech is Appropriate. Mood is depressed/irritable. Affect is congruent. Thoughts are linear and logical. No evidence of psychosis. Reviewed daily check in sheet and no reports of suicidal ideations or intent. Client Response/Progress/Benefit: [] Pt was an active participant in group discussion. Attentive. Emotion for today is angry. She continues to identify her relationship as primary stressor. Ruminating and focused on what her partner doesn't do with her and she feels like a burden on her family. Some insight that she was able to be frustrated and sill regulation her thoughts/emotions. Completed self-care and feels like I'm on pace today. Energetic and motivated focusing thoughts on aspects of the day she can control. Progress noted with increase insight and awareness. Benefited from group support, encouragement, and feedback. Will continue in IOP to prevent decompensation, stabilize mood, and improve functioning. Narrative Note: []
--- NOTE | 2023-01-04 10:20 | BH.SGPN.GN ---
Behaviors/Verbalizations/Mental Status: []Pt alert and oriented, casually dressed and groomed. Eye contact good. Motor activity appropriate. Speech within normal limits. Affect congruent, mood euthymic. Thoughts linear, logical, no signs of hallucinations or delusions. Client Response/Progress/Benefit: []Pt was an active participant, AEB taking notes and providing input in group discussions and activities. Attentive during psychoeducation. Pt engaged during interactive discussion in which the group defined self-care and discussed its benefits. Group discussed barriers to engaging in self-care. Pt identified personal barrier of low motivation or it feels like too much effort. Pt participated in small groups where they worked to identify common self-care ?myths?. Benefited from increased awareness of self-care, its benefits, and the consequences of not utilizing self-care strategies. Will continue IOP tx to prevent decompensation, promote healthy coping skill application, and continue to improve mood stability. Narrative Note: []
--- NOTE | 2023-01-04 11:15 | BH.SGPN.GN ---
Behaviors/Verbalizations/Mental Status: []Pt alert and oriented, neatly dressed and groomed. Eye contact good. Motor activity appropriate. Speech within normal limits. Affect congruent, mood calm. Thoughts linear, logical, no signs of hallucinations or delusions. Client Response/Progress/Benefit: [] Pt engaged participant AEB completing self-assessment worksheet and providing input throughout discussion. Pt completed worksheet identifying current self-care practices and what self-care activities pt wants to start using. Pt selected physical self-care to begin practicing more consistently. Pt plans to do this by paying more attention to the food/drink pt consumes and how it impacts her mental health. Appeared to benefit from completing the self-care evaluation and gaining insights into current self-care practices, as well as identifying areas in which pt would like to improve upon.? Pt will continue IOP tx to promote mood stability, improve distress tolerance skills, and further reduce negative thinking patterns. ?? Narrative Note: []
--- NOTE | 2023-01-05 12:41 | PCM.BH.PN_ITS ---
Progress Note Progress Note: History of Present Illness/Interim History: The patient is a 57-year-old female seen in follow-up at the [facility] behavioral health IOP program where she is being seen for depression and anxiety. I last saw the patient about 1 month ago and at that time her Cymbalta was increased to 90 mg p.o. daily. Patient states that her mood has been better in the past few weeks and she is much less depressed than before. She states that she is still anxious and her anxiety worsens often when she is stressed out due to issues with her . She states that her is the major stressor in her life. She feels that they do not think the same way at all and she states that she told him he should leave if he wanted to but she is worried that if he leaves she will have more financial stress. She has been sleeping about 6 to 8 hours a night. Despite the stress with her at times she does feel like she is not getting overall as upset as she used to. She has occasional passive thoughts of but they are less often than before. She denies plan for suicide, suicidal ideation, homicidal ideation, hallucinations or delusions. Current Psychiatric Medications: [] Cymbalta 90 mg p.o. daily (x1 month); BuSpar 20 mg p.o. twice daily Mental Status Examination: [] Patient is a 57-year-old female who is casually dressed and groomed with good hygiene and is seen walking with a walker. She is cooperative during the interview and has no psychomotor agitation or retard ation. Eye contact is good and speech is normal rate and rhythm and fluent with no pressure. Mood is anxious. Affect is full and normal. Thought process is goal-directed and organized. Thought content: There is evidence of passive thoughts of although decreasing in amount. There is no evidence of suicidal ideation, plan for suicide, homicidal ideation, hallucinations or delusions. Reality testing is intact. Intelligence is average. Judgment is intact. Insight is fair to good. Impulsivity is low. Diagnoses: [] 1. Generalized anxiety disorder 2. Major depressive disorder, recurrent, severe without psychosis 3. Status post aortic dissection with strokes following in 2021 4. Urinary retention requiring self-catheterization 5. Traumatic brain injury in 2016 6. History of V. tach with pacemaker in place 7. Primary support and financial issues Plan: [] The patient will continue the IOP program at [facility] as the structure, support, education and group therapy will hopefully prevent worsening of the patient's symptoms. She felt safe during the interview and if it anytime she does not feel safe she will let us know or go to the emergency room. No medication changes were made today but the patient requests refills of Cymbalta and these are given for 60 mg and 30 mg of Cymbalta p.o. daily for total of 90 mg p.o. daily. Prescription are sent in for these. She will continue to follow-up with her outpatient providers and I will see the patient in follow-up in several weeks.
--- NOTE | 2023-01-06 09:05 | BH.SGPN.GN ---
Behaviors/Verbalizations/Mental Status: []Pt alert and oriented, casually dressed and groomed. Eye contact good. Motor activity appropriate. Speech tangential. Affect congruent, mood anxious. Thoughts linear, logical, no signs of hallucinations or delusions. Reviewed pt?s symptom tracker, no suicidal ideation reported, denies plan, or active intent as of 01/06/23. Client Response/Progress/Benefit: []Pt responded well to session, attentive and engaged. Pt reports feeling anxious this morning due to ongoing stress with her . Pt and her have been having marital issues for years and pt feels she is getting close to leaving him. Pt shared her mental health wins today as setting boundaries with her and going to the [facility] with her mother. Pt reported it was nice to get out of the house and talk to people he has not seen in a long time. Pt appeared to benefit from connecting with peers and reflecting on healthy coping skills they could use. Pt will continue IOP tx to reduce ruminations, increase distress tolerance skills, and improve self-worth. Narrative Note: []
--- NOTE | 2023-01-06 10:15 | BH.SGPN.GN ---
Behaviors/Verbalizations/Mental Status: [] Eye contact is good. Motor activity is appropriate. Appearance is casual. Speech is Appropriate. Mood is anxious/irritable. Affect is congruent. Thoughts are linear and logical. No evidence of psychosis. Client Response/Progress/Benefit: [] Pt participated in group discussions. Attentive during psychoeducation AEB note taking. Engaged during interactive discussion on the benefits vs disadvantages to anger, common ways that individuals express anger, and how anger can impact one's mental health. Group members brainstormed common internal and external triggers associated with anger which included; poor communication, being ignored, being disrespected, lack of personal follow-through with a task, laziness, dishonesty, injustice, falling short of one's goals, uncertainty, etc. Benefited from increased understanding of anger, internal/external triggers, and the impact that the anger cycle can have on anxiety and depression. Will continue in IOP to prevent decompensation, increase emotion regulation, and increase healthy coping strategies. Narrative Note: []
--- NOTE | 2023-01-06 15:55 | BH.MDN_ITS ---
Multi-Disciplinary Note Note 45-min Individual: Time Started:: 11:30 Date: 01/06/23 Purpose of session/treatment goals addressed:: To process current stressors, triggers, and conflict. Another goal was to discuss resources. Eye Contact:: Good Motor Activity:: Appropriate Appearance:: Neat Speech:: Tangential and Rambling Mood:: Euthymic Affect:: Congruent Thoughts:: Circular and No evidence of hallucinations/delusions noted Staff Interventions:: thought challenging, motivational interviewing, CBT techniques, discharge planning, strengths perspective, goal setting and other (discussed home health as a resource) Client Response:: Pt responded well to session, open to meeting with therapist. Pt used session mostly to verbally process her current stressors and today pt wanted to talk about her marriage. Pt admits she and her have had a turbulent relationship for many years and they have before. Pt stated she wants to leave him, but there are too many what ifs. Pt feels that she could be independent, but pt worries about taking care of herself financially and physically. Pt responded well to discussion on radical acceptance and how no matter what decision is made, pt will have to do hard things. Pt connected with the concept of picking the right kind of hard thing that will help pt long-term. Pt also reminded that there are resources and people in her life that will support her no matter what choice she makes. Pt encouraged to write out the pros and cons of staying and leaving. Pt also learned about home health services and other additional resource potentially available to pt due to her medical conditions and limited mobility. Risks/Concerns:: No SI and no thoughts of reported. Progress Toward Goals/Plan:: Pt continues to respond well to tx AEB her self-report of improved mood. Pt's relationship with her continues to be one of pt's biggest triggers for irritability, depression, and anxiety. Pt re ceptive to homework of looking at the pros and cons of staying vs . Pt also given resources for couple's counseling should pt and her seek this option in the future. Pt encouraged to continue practicing acceptance, mindfulness skills, and challenging negative thinking. Pt has not called to schedule a therapy appointment yet and was encouraged to do so. Pt will continue IOP tx to establish aftercare, reinforce healthy coping skills, and gain additional resources to support mental and physical health. Time Stopped:: 12:15
--- NOTE | 2023-01-07 09:01 | BH.SGPN.GN ---
Behaviors/Verbalizations/Mental Status: []Pt alert and oriented, casually dressed and groomed. Eye contact good. Motor activity appropriate. Speech within normal limits. Affect congruent, mood anxious. Thoughts at times loose associations and rambling. logical, no signs of hallucinations or delusions. Reviewed pt?s symptom tracker, no suicidal ideation reported, denies plan, or active intent. Client Response/Progress/Benefit: [] Pt responded well to session, open to processing with group and engaged. On symptom tracker pt reports a 1/5, with 5 being severe, for depression and a 3/5 for anxiety. Patient shared mental positive as [place] the [place] with her being able to enjoy herself despite her being more negative. Patient stated she focused on what she wanted to do and engaged in things that she likes. Patient reported additional mental positive as getting to connect with an old friend that she saw when she was at the fair. Patient identified a positive and stressor is having her grandkids coming over to stay for several days which she is excited about but also nervous because it is a lot to manage. Patient did affect continued stressor as her relationship with her knowing is not healthy but not sure how to navigate potential splitting up. Pt appeared to benefit from supportive feedback of the group, as well as reflecting on mental health wins. Pt will continue IOP tx to continue use of healthy skills, challenge distorted thoughts, and prevent decompensation.
--- NOTE | 2023-01-07 10:10 | BH.SGPN.GN ---
Behaviors/Verbalizations/Mental Status: [] Eye contact is good. Motor activity is appropriate. Appearance is casual. Speech is Appropriate. Mood is anxious/irritable. Affect is congruent. Thoughts are linear and logical. No evidence of psychosis. Client Response/Progress/Benefit: [] Pt was an active participant in group discussions. Attentive during psychoeducation AEB by note taking. Pt worked along with her peers in small groups and worked to define guilt, inappropriate guilt, and appropriate guilt. Interactive discussion on examples of both inappropriate and appropriate guilt. Pt identified a personal example of inappropriate guilt which was setting a boundary and getting gaslitand how this impacted her mental health. Benefited from increased awareness of guilt and the differences between appropriate and inappropriate guilt. Will continue in IOP to prevent decompensation, maintain safety, and to stabilize mood. Narrative Note: []
--- NOTE | 2023-01-07 11:15 | BH.SGPN.GN ---
Behaviors/Verbalizations/Mental Status: []Pt alert and oriented, neatly dressed and groomed. Eye contact good. Motor activity appropriate. Speech tangential. Affect congruent, mood euthymic. Thoughts linear, logical, no signs of hallucinations or delusions. Client Response/Progress/Benefit: []Pt engaged participant AEB listening attentively to others and providing input throughout group. During challenge activity pt worked cooperatively with small group. Pt made connection that it takes patience, willingness to be uncomfortable, and problem solving to work through appropriate and inappropriate guilt. Pt worked with their small group to identify strategies to manage inappropriate guilt. Pt stated pt often feels inappropriate guilt about not being able to work anymore. Pt wants to work on overcoming this by determining if this guilt is justified or not. Pt seemed to benefit from learning about strategies to manage appropriate and inappropriate guilt. Pt to continue IOP to improve daily functioning, reduce negative thinking patterns, and increase interpersonal effectiveness skills. Narrative Note: []
--- NOTE | 2023-01-13 09:05 | BH.SGPN.GN ---
Behaviors/Verbalizations/Mental Status: [] Pt alert and oriented, neatly dressed and groomed. Eye contact good. Motor activity appropriate. Speech tangential and rambling. Affect congruent, mood agitated. Thoughts linear, logical, no signs of hallucinations or delusions. Reviewed pt?s symptom tracker, no risk for suicidal ideation, plan, or intent 01/13/23 Client Response/Progress/Benefit: []Pt responded somewhat well to session, attentive, but pt was oversharing about her marital issues. Pt reports feeling anxious this morning as pt reports ongoing issues with her and shared about the most recent trigger. Pt has been encouraged to set boundaries with her , go to marriage counseling, and practice effective communication. Pt plans to have individual therapy after IOP, so hopefully pt will continue to process through these stressors. Pt did have some mental health wins which included spending time her son and [id number]. Pt appeared to benefit from gentle thought challenging from therapist. Pt will discharge from IOP tx as pt has accomplished her tx goals and no longer meets criteria for IOP level of care. Narrative Note: []
--- NOTE | 2023-01-13 10:15 | BH.SGPN.GN ---
Behaviors/Verbalizations/Mental Status: []Pt alert and oriented, casually dressed and groomed. Eye contact good. Motor activity appropriate. Speech within normal limits. Affect congruent, mood euthymic. Thoughts linear, logical, no signs of hallucinations or delusions. Client Response/Progress/Benefit: []Pt was an active participant in group discussions and activity. At time struggling with making off topic remarks distracting herself and fellow participants; however, responded well to redirection. Attentive during psychoeducation. Pt along with peers were able to identify several negatives on the picture given to the group. Pt and peers also identified positives in the picture and made the connection that finding positives is much more difficult. Interactive discussion on the definition of perspective, how perspective is formed, and why perspective is important in treatment. Pt along with peers also identified that perspective can either motivate and encourage treatment or be a barrier to receiving help. Pt shared today her perspective is more hopeful and optimistic, with some skepticism related to addressing ongoing marital issues. Pt stated her current perspective is helping her to focus on creating a mental health maintenance plan but has continued to contribute to maintaining several communication barriers within her relationship. Will d/c from IOP tx given progress made and continue with individual outpatient counseling to maintain gains, encourage consistent skill application, promote healthy communication and conflict resolution, and prevent decompensation. Narrative Note: []
--- NOTE | 2023-01-13 14:12 | BH.AFTERPLAN ---
Aftercare Plan Demographics Treatment End Date:: 01/13/23 Psychiatrist:: Yoanna Buchanan Psychiatrist Office #:: [id number] [facility]/IOP Therapist:: Mel Rodriguez Therapist Phone #:: [phone] Medications Home Medications cholecalciferol (vitamin D3) 125 mcg (5,000 unit) tablet (Vitamin D3) 125 mcg PO DAILY Check with primary doctor 07/02/21 aspirin 81 mg capsule 81 mg PO DAILY heart health 07/18/21 losartan 100 mg tablet 100 mg PO DAILY #0 tabs 08/07/21 hydrochlorothiazide 25 mg tablet 25 mg PO DAILY #30 tabs 09/28/21 loratadine 10 mg tablet 10 mg PO DAILY 12/03/21 metoprolol succinate 100 mg tablet,extended release 24 hr 100 mg PO DAILY 12/03/21 clonidine HCl 0.2 mg tablet 0.2 mg PO BID 04/13/22 fluticasone propionate 50 mcg/actuation nasal spray,suspension (Flonase Allergy Relief) 1 spray intranasal DAILY 09/28/22 gabapentin 400 mg capsule 400 mg PO .qpm and tid prn 09/28/22 magnesium oxide 400 mg (241.3 mg magnesium) tablet 400 mg PO DAILY 09/28/22 sennosides 8.6 mg-docusate sodium 50 mg tablet (Stool Softener-Stimulant Laxative) 2 tab PO DAILY PRN constipation 09/28/22 turmeric curcumin 1 cap PO DAILY 09/28/22 zinc sulfate 50 mg zinc (220 mg) capsule 50 mg PO DAILY 09/28/22 zinc 50 mg capsule 50 mg PO DAILY 11/24/22 ascorbic acid (vitamin C) 500 mg capsule 500 mg PO DAILY 11/25/22 atorvastatin 40 mg tablet 40 mg PO QHS 30 days #30 tabs 11/25/22 buspirone 10 mg tablet 20 mg PO BID 11/25/22 clopidogrel 75 mg tablet (Plavix) 75 mg PO DAILY #30 tabs 11/25/22 ferrous sulfate 325 mg (65 mg iron) tablet (iron) 325 mg PO DAILY 11/25/22 pumpkin seed extract 500 mg capsule (Azo Men) 1,000 mg PO DAILY 11/25/22 duloxetine 30 mg capsule,delayed release (Cymbalta) 30 mg PO DAILY 30 days #30 caps 01/05/23 duloxetine 60 mg capsule,delayed release (Cymbalta) 60 mg PO DAILY 3 days #3 caps 01/05/23 Plan Details Progress/Aftercare Plan Details:: Gema has responded well to treatment as evidenced by Gema consistently attending IOP sessions and her reduction of DSM-5 scores since admission. Gema was always attentive and receptive to learning during group and individual sessions. Gema was able to challenge her perspective and learn acceptance skills. Gema?s overall symptom reduction is 16% since admission with anger decreasing by 25%, depression decreasing by 16%, and anxiety decreasing by 11%. Gema has increased self-confidence in her ability to manage stressors, emotions, and her distorted thinking patterns. Strategies for Success:: 1. Opposite action! Continue to break that cycle of anxiety and depression by not letting emotions be the only drivers of your bus. 2. Remember that thoughts are thoughts NOT facts! You have power in if you give thoughts the time of day or not. 3. self-care! You deserve to take time for you and you also deserve to face the not so fun self-care like setting boundaries and being VULNERABLE 4. Self-compassion! You are human and you will make a mistake?BUT that doesn?t mean you are a failure or not good enough. Give yourself credit for all the wonderful things you do. 5. continue putting in effort to the people and coping skills that serve you 6. Practice positive self-talk and keep track of your wins. 7. Remember progress isn?t linear! You may have a setback or bump in the road, but that doesn?t mean you?ve lost all progress. 8. self-reflection and self-awareness. 10. Live in the watkins!! Appointments Appointments/Referrals to Other Services:: 1. Elyse Tavera for individual counseling. Apt on 01/27/23 at 1:00pm. 2. PCP for medication management. 3. IOP aftercare starting 01/20/23 starting at 2:00pm.
--- NOTE | 2023-01-13 14:17 | BH.DS ---
Discharge Summary Demographics Date of Admission:: 11/29/22 Discharge Date: 01/13/23 Presenting Problems at Admission:: Pt is a 57-year-old female with a history of depression and anxiety. Pt previously completed IOP in 2020 and has referred herself back due to depression triggered by several unexpected medical issues. At admission, pt endorses a depressed mood, hopelessness, helplessness, irritability, anger, and feeling like a burden. Pt also worries constantly and this is worsened when pt has to go to the doctors. Due to medical issues, pt's mobility is impaired and this significantly exacerbates pt's depression. Pt's social, occupational, and familial functioning are impaired by her medical issues and her depressive symptoms. Discharge Diagnoses:: Generalized anxiety disorder F 41.1; Major depressive disorder, recurrent, severe without psychosis Reason for Discharge:: Pt has accomplished her tx goals AEB her reduction of DSM-5 symptoms and self-report of overall improved perspective. Pt no longer meets criteria for IOP level of care and will discharge from [facility] and continue with outpatient counseling and IOP aftercare. Treatment Progress During Treatment & Response: Pt has responded well to treatment as evidenced by pt consistently attending IOP sessions and her reduction of DSM-5 scores since admission. Pt was always attentive and receptive to learning during group and individual sessions. Pt was able to challenge her perspective and learn acceptance skills. Pt's overall symptom reduction is 16% since admission with anger decreasing by 25%, depression decreasing by 16%, and anxiety decreasing by 11%. Pt has increased self-confidence in her ability to manage stressors, emotions, and her distorted thinking patterns. Issues Still to be Addressed:: Pt can benefit from practicing assertive, not passive-aggressive, communication with her , setting weekly goals, and incorporating daily self-care practices. Pt can also work on adjusting to and coping with her change in functioning. Additionally, pt can benefit from working on her martial issues and negative self-talk. Discharge Recommendations/Instructions:: Pt will continue with outpatient counseling at [facility]. Pt sees Elyse Mitchell on 01/27/23. Pt's PCP will continue managing pt's medications. Pt will begin IOP aftercare either on 01/20/23 or 01/27/23. Discharge Handout
--- NOTE | 2023-01-13 14:25 | BH.MDN_ITS ---
Multi-Disciplinary Note Note 45-min Individual: Time Started:: 11:15 Date: 01/13/23 Purpose of session/treatment goals addressed:: To process current stressors and establish aftercare. Eye Contact:: Good Motor Activity:: Appropriate Appearance:: Casual Speech:: Tangential and Rambling Mood:: Anxious Affect:: Congruent Thoughts:: Circular and No evidence of hallucinations/delusions noted Staff Interventions:: thought challenging, motivational interviewing, discharge planning, strengths perspective and reviewed DSM-5 Client Response:: Pt responded well to session, open to meeting with therapist. Pt and therapist used some of session to get pt established with outpatient counseling. Pt selected a therapist that she thought would help her most in pt's current stage in life. Pt is still stressed about her marriage and pt is currently angry and anxiety as her left for a solo vacation. Pt was encouraged to assertively talk to her about her feelings instead of being passive-aggressive towards him. Pt shared that whenever he upsets her, pt will be really sarcastic or I'll start throwing his clothes out of the house. Pt has some insight that this is not the most effective response as she stated I know I'm not easy to live with. However, pt feels justified because her has left pt in the past. Discussed pt's options again with her marriage and challenged pt's perspective. Pt was reminded that if she chooses to stay with her , she has to be willing to forgive him which means less passive- aggressive actions and not holding things against him. Pt also understands that she deserves healthy relationships and no matter what pt decides, it will be challenging. Pt encouraged to continue working on this in her individual sessions with Dr. Tavera. Risks/Concerns:: No report of thoughts of or suicidal ideations. Progress Toward Goals/Plan:: Pt will discharge from IOP tx today as pt has met her tx goals and will continue with outpatient counseling to work on long- term goals. Pt's DSM-5 scores did not significantly decrease, but there was a decrease for anger, depression, and anxiety. Pt will start seeing Dr. Elyse Tavera for individual therapy. Pt's first session is 01/27/23. Time Stopped:: 12:00
== END 2023-01-14 06:28 | disposition home or self-care (01) ==
LOC: BHIOP 08:29
PROVIDERS: PCP Student in an Organized Health Care Education/Training Program; Referring Provider Psychiatry & Neurology Psychiatry; Visit Provider Psychiatry & Neurology Psychiatry
DX: F33.2 Major depressive disorder, recurrent severe without psychotic features (principal); F41.1 Generalized anxiety disorder; R33.9 Retention of urine, unspecified; Z86.73 Personal history of transient ischemic attack (TIA), and cerebral infarction without residual deficits; Z87.820 Personal history of traumatic brain injury; Z95.0 Presence of cardiac pacemaker
CPT/HCPCS: S9480; 90834; 90837; 90853

== ENCOUNTER → 2023-01-27 | Outpatient (CLI) | payer OTHER, SELFPAY ==
[2022-02-01 15:24] VITALS: BMI 33.4
== END | disposition home or self-care (01) ==
LOC: SL 20:21
PROVIDERS: PCP Student in an Organized Health Care Education/Training Program; Visit Provider Psychiatry & Neurology Sleep Medicine
DX: G47.33 Obstructive sleep apnea (adult) (pediatric) (principal); G47.31 Primary central sleep apnea
CPT/HCPCS: 95811

== ENCOUNTER 2023-03-18 17:19 | Emergency (ER) | payer OTHER, SELFPAY ==
[2022-02-01 15:24] VITALS: BMI 33.4
[2023-03-18 17:20] VITALS: BP 138/73; PULSE 64; RESP 18; TEMP 36.3; O2SAT 95
--- NOTE | 2023-03-18 17:52 | EX.ED.DYSGE1 ---
HPI History of Present Illness Chief Complaint: Other, Pain/Inj Informant: patient and spouse/S.O. Narrative Narrative: 58-year-old female presenting to the emergency room chief complaint of right-sided back pain. Patient states for about a week she has had pain from the right base of her neck down to the base of her right scapula. It is worse with movement of the arm and neck. Particularly lifting her arm into abduction rotating the head to the right and neck extension. She denies any fevers. No chest pain. She has a history of aortic dissection and has an ICD. The patient has been using Flexeril and Diflucan cream. She has had this pain before but not as severe. A couple days ago she fell but she was experiencing the pain before the fall. She states she fell because she was trying to carry too much and not use her walker. She denies any radiation into the arms. No sensory loss. No rashes. [facility] Medical History (Updated 03/18/23 @ 18:[address] Issa Phillips, ) Acute blood loss anemia Aortic dissection Arthritis Cerebellar infarction (07/13/21) Chronic anemia Cognitive dysfunction COVID-19 DVT (deep venous thrombosis) (07/14/21) Endometrial cancer Essential hypertension Former tobacco use Generalized anxiety disorder GERD (gastroesophageal reflux disease) Hiatal hernia History of aortic dissection (07/04/21) History of IBS History of traumatic brain injury Infarction of left basal ganglia Insomnia Intracerebral bleed due to trauma Iron deficiency Left upper extremity deep vein thrombosis Major depressive disorder, recurrent severe without psychotic features Neurogenic bladder Non-sustained ventricular tachycardia Nonobstructive atherosclerosis of coronary artery CLARKE (obstructive sleep apnea) Peripheral neuropathy Physical debility Prediabetes Radial artery thrombosis, left Right inguinal hernia SBO (small bowel obstruction) Seizure disorder Seizures Stroke/cerebrovascular accident Sustained ventricular tachycardia Tobacco dependence due to cigarettes, in remission Urinary retention Ventricular tachycardia Home Medications cholecalciferol (vitamin D3) 125 mcg (5,000 unit) tablet (Vitamin D3) 125 mcg PO DAILY Check with primary doctor 07/02/21 [History Last Taken Unknown] losartan 100 mg tablet 100 mg PO DAILY #0 tabs 08/07/21 [Rx Last Taken Unknown] loratadine 10 mg tablet 10 mg PO DAILY 12/03/21 [History Last Taken Unknown] metoprolol succinate 100 mg tablet,extended release 24 hr 100 mg PO DAILY 12/03/21 [History Last Taken Unknown] clonidine HCl 0.2 mg tablet 0.2 mg PO BID 04/13/22 [History Last Taken Unknown] fluticasone propionate 50 mcg/actuation nasal spray,suspension (Flonase Allergy Relief) 1 spray intranasal DAILY 09/28/22 [History Last Taken Unknown] gabapentin 400 mg capsule 400 mg PO .qpm and tid prn 09/28/22 [History Last Taken Unknown] magnesium oxide 400 mg (241.3 mg magnesium) tablet 400 mg PO DAILY 09/28/22 [History Last Taken Unknown] sennosides 8.6 mg-docusate sodium 50 mg tablet (Stool Softener-Stimulant Laxative) 2 tab PO DAILY PRN constipation 09/28/22 [History Last Taken Unknown] turmeric curcumin 1 cap PO DAILY 09/28/22 [History Last Taken Unknown] zinc 50 mg capsule 50 mg PO DAILY 11/24/22 [History Last Taken Unknown] ascorbic acid (vitamin C) 500 mg capsule 500 mg PO DAILY 11/25/22 [History Last Taken Unknown] atorvastatin 40 mg tablet 40 mg PO QHS 30 days #30 tabs 11/25/22 [Rx Last Taken Unknown] buspirone 10 mg tablet 20 mg PO BID 11/25/22 [History Last Taken Unknown] clopidogrel 75 mg tablet (Plavix) 75 mg PO DAILY #30 tabs 11/25/22 [Rx Last Taken Unknown] ferrous sulfate 325 mg (65 mg iron) tablet (iron) 325 mg PO DAILY 11/25/22 [History Last Taken Unknown] pumpkin seed extract 500 mg capsule (Azo Men) 1,000 mg PO DAILY 11/25/22 [History Last Taken Unknown] cephalexin 500 mg capsule 500 mg PO .tuesday03/18/23 [History Last Taken Unknown] duloxetine 30 mg capsule,delayed release (Cymbalta) 90 mg PO QHS 03/18/23 [History Last Taken Unknown] hydrochlorothiazide 25 mg tablet 50 mg PO DAILY 03/18/23 [History Last Taken Unknown] hydrocodone-acetaminophen 5-325mg 5mg-325mg 1 tab PO Q6H PRN PRN Pain 3 days #12 TABLETS 03/18/23 [Rx Last Taken Unknown] Allergy/AdvReac Type Severity Reaction Status Date / Time nitrofurantoin Allergy Hives Verified 03/18/23 17:19 [From Macrobid] Penicillins [PCN] Allergy Swelling Verified 03/18/23 17:19 amlodipine AdvReac Other Verified 03/18/23 17:19 ciprofloxacin AdvReac Other Verified 03/18/23 17:19 erythromycin base AdvReac Upset Verified 03/18/23 17:19 [Erythromycin Base] Stomach lisinopril AdvReac Other Verified 03/18/23 17:19 sulfamethoxazole AdvReac Upset Verified 03/18/23 17:19 [From Bactrim] Stomach trimethoprim [From Bactrim] AdvReac Upset Verified 03/18/23 17:19 Stomach Family History Mother Cancer Hx endometrial CA. Hypertension Father Myocardial infarction Heart disease Hypertension Grandfather CAD (coronary artery disease) Diabetes Daughter Seizures Surgical History H/O umbilical hernia repair H/O: hysterectomy (2005) History of aortic valve replacement (07/04/21) History of cholecystectomy History of implantable cardiac defibrillator (ICD) (06/18/20) History of inguinal hernia repair History of left heart catheterization (06/16/20) History of radiofrequency ablation (RFA) procedure for cardiac arrhythmia (07/16/21) Hx of breast reduction, elective Hx of repair of dissecting thoracic aortic aneurysm, Ezequiel type A (07/04/21) Status post club foot correction at Social History adopted: No household members: spouse housing: house number of children: 2 current occupational status: employed 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 She had seizures. Smoking Status: Former smoker how long ago did patient quit smoking: She quit smoking in 1995 alcohol intake: current alcohol intake frequency: holidays/special occasions only substance use type: does not use ROS ROS ED Constitutional Constitutional ED: Denies chills, fever(s) or weight loss Eyes Eyes: Denies change in vision or diplopia ENT ENT ED: Denies ear pain, rhinorrhea or sore throat Cardiovascular Cardiovascular: Denies chest pain, orthopnea, palpitations or racing heartbeat Respiratory/Chest Respiratory/Chest: Denies cough, dyspnea or orthopnea Gastrointestinal Gastrointestinal: Denies abdominal pain, diarrhea, nausea or vomiting Genitourinary Genitourinary ED: Denies dysuria, hematuria or urinary frequency Musculoskeletal Musculoskeletal: Reports back pain and neck pain; Denies arthralgias or myalgias Integumentary Denies abscess or rash Neurologic Neurologic: Denies headache(s), paresthesias or weakness Psychiatric Psychiatric: Denies anxiety, depression, suicidal ideation or suicidal thoughts Endocrine Endocrinology: Denies polydipsia, polyphagia or polyuria Allergic/Immunologic Allergic/Immunologic ED: Denies mouth swelling, tongue swelling or urticaria EXAM Physical Exam Const Vital Signs: 03/18/23 17:20 03/18/23 18:21 Temperature 97.4 F L Temperature Source Temporal Pulse Rate 64 Respiratory Rate 18 Respiratory Effort Normal Respiratory Pattern Normal Blood Pressure 138/73 H Blood Pressure Mean 94 Pulse Ox 95 Oxygen Delivery Method Room Air Positive well nourished, well developed and obese General Appearance ED: well developed Nutritional Appearance: obese HEENT Reports normocephalic, head/scalp atraumatic and moist mucous membranes Eyes PERRL and EOMs intact bilaterally Neck no lymphadenopathy, supple and no JVD Neck Narrative: Patient has tenderness palpation posteriorly from the occiput inferiorly along the right paraspinal musculature to the base of the scapula. It is worse with movement of the neck particularly rotating to the right and extension. She has no tissue texture changes that would indicate abscess or infection. Resp normal respiratory effort and clear to auscultation bilaterally Cardio regular rate, regular rhythm and no murmurs GI normal to inspection, nondistended, normoactive bowel sounds and non-tender Palpation: soft Back/Spine no CVA tenderness and normal ROM Extremity normal to inspection General Extremety ED: Negative for edema General Extremity: Negative for edema Neuro oriented x3 and CN's II-XII intact bilaterally Sensorium / Orientation: alert Motor Exam: strength 5/5 throughout Psych mental status grossly normal Mood & Affect: Negative for depressed or tearful Skin no rashes or lesions noted and no wounds MDM MDM MDM Narrative Medical decision making narrative: My independent interpretation of the three-view cervical spine x-ray is mild degenerative changes. There is abnormal convex curvature noted. Based on the history and the exam I think is most likely muscular in nature. She is already taking diclofenac and some Flexeril. She has been using ice and I did recommend trialing heat. I can write for a few [place] for severe pain. Would recommend primary care follow-up. Radiography Diagnostic Testing: Clinical Impression(s) from Imaging Studies Cervical Spine X-Ray 03/18/23 18:02 IMPRESSION: 1. No evidence of acute fracture or spondylolisthesis. 2. Mild cervical spondylosis. Mild rightward convex curvature of the cervical spine which can represent sequelae of torticollis. Electronically Signed: Charlie Padilla MD at 18:21 EST , Discharge Plan Triage Chief Complaint: Other, Pain/Inj ED Provider: Issa Phillips Dx/Rx/DC Orders Clinical Impression: Acute neck pain, Cervical paraspinal muscle spasm Instructions: Muscle Spasm Prescriptions: New hydrocodone-acetaminophen [hydrocodone-acetaminophen] 5-325 mg tablet 1 tab PO Q6H PRN PRN (Reason: Pain) 3 Days Qty: 12 0RF No Action gabapentin 400 mg capsule 400 mg PO .qpm and tid prn loratadine 10 mg tablet 10 mg PO DAILY metoprolol succinate 100 mg tablet extended release 24 hr 100 mg PO DAILY magnesium oxide 400 mg (241.3 mg magnesium) tablet 400 mg PO DAILY clonidine HCl 0.2 mg tablet 0.2 mg PO BID sennosides-docusate sodium [Stool Softener-Stimulant Laxat] 8.6-50 mg tablet 2 tab PO DAILY PRN (Reason: constipation) fluticasone propionate [Flonase Allergy Relief] 50 mcg/actuation spray,suspension 1 spray intranasal DAILY Rx Instructions: administer into each nostril turmeric curcumin 1 cap PO DAILY cholecalciferol (vitamin D3) [Vitamin D3] 125 mcg (5,000 unit) Tablet 125 mcg PO DAILY losartan 100 mg Tablet 100 mg PO DAILY Qty: 0 0RF cephalexin 500 mg capsule 500 mg PO .tuesday hydrochlorothiazide 25 mg tablet 50 mg PO DAILY duloxetine [Cymbalta] 30 mg capsule,delayed release(DR/EC) 90 mg PO QHS Rx Instructions: Take with one 60 mg for total of 90 mg po daily. zinc 50 mg capsule 50 mg PO DAILY ascorbic acid (vitamin C) 500 mg capsule 500 mg PO DAILY buspirone 10 mg tablet 20 mg PO BID ferrous sulfate [iron] 325 mg (65 mg iron) tablet 325 mg PO DAILY Azo Men 500 mg capsule 1,000 mg PO DAILY atorvastatin 40 mg Tablet 40 mg PO QHS 30 Days Qty: 30 0RF clopidogrel [Plavix] 75 mg tablet 75 mg PO DAILY Qty: 30 0RF Primary Care Provider: Slim Denson Referrals: Slim Denson DO [Primary Care Provider] - 1 Week Disposition Disposition: Home, Self Care
--- NOTE | 2023-03-18 18:02 | RAD_ITS ---
INDICATION: pain EXAMINATION/TECHNIQUE: X-RAY - XR Spine Cervical 2 or 3 Views COMPARISON: None. FINDINGS: VERTEBRAE: Preserved vertebral body height. No fracture. No spondylolisthesis. Preservation of the normal cervical lordosis. No significant facet arthropathy. There is mild rightward convex curvature of the cervical spine. DISCS: Mild marginal osteophyte formation most notable at C6-7. NECK SOFT TISSUES: No prevertebral soft tissue widening. LUNG APICES: Clear. RAD/Cerv Spine 2 or 3 Views IMPRESSION: 1. No evidence of acute fracture or spondylolisthesis. 2. Mild cervical spondylosis. Mild rightward convex curvature of the cervical spine which can represent sequelae of torticollis. Electronically Signed: Charlie Padilla MD at 18:21 EST ,
[2023-03-18 18:14] VITALS: BMI 41.6
[2023-03-18] MEDS: HYDROcodone Bitartrate/Apap 5/325 Tablet PO (19:04)
== END 2023-03-18 19:32 | disposition home or self-care (01) ==
PROVIDERS: Emergency Provider Emergency Medicine; PCP Student in an Organized Health Care Education/Training Program; Visit Provider Emergency Medicine
DX: M54.2 Cervicalgia (principal); F33.3 Major depressive disorder, recurrent, severe with psychotic symptoms; I25.10 Atherosclerotic heart disease of native coronary artery without angina pectoris; I10 Essential (primary) hypertension; Z87.891 Personal history of nicotine dependence; M62.830 Muscle spasm of back; Y93.89 Activity, other specified; W19.XXXA Unspecified fall, initial encounter; Z86.73 Personal history of transient ischemic attack (TIA), and cerebral infarction without residual deficits; Z79.899 Other long term (current) drug therapy; F41.1 Generalized anxiety disorder; Z79.02 Long term (current) use of antithrombotics/antiplatelets; Z90.710 Acquired absence of both cervix and uterus; Z95.2 Presence of prosthetic heart valve; Z90.49 Acquired absence of other specified parts of digestive tract; Z95.810 Presence of automatic (implantable) cardiac defibrillator
CPT/HCPCS: 72040; 99282

== ENCOUNTER → 2023-04-08 | Outpatient (CLI) | payer OTHER, SELFPAY ==
[2023-04-01 16:09] VITALS: BMI 33.4
--- NOTE | 2023-04-08 13:07 | BI_ITS ---
MAMMOGRAPHY - BILATERAL SCREENING REASON FOR EXAM: Female, 58 years old. Routine annual screening examination. PERTINENT HISTORY: Grandmother with breast cancer. History of prior bilateral breast reduction surgery TECHNIQUE: Digital bilateral breast mike (3D mammographic acquisition) in the CC and MLO projections. 2-D mediolateral oblique (MLO) and craniocaudad (CC) views of both breasts were obtained. CAD: Full Field Digital Mammography with Computer Added Detection was performed. COMPARISON: Comparison is made with prior study August 25, 2018. FINDINGS: Breast Composition: The breasts are almost entirely fatty. There are no dominant masses or suspicious calcifications. Stable densely calcified nodule in the slightly lateral retroareolar region of the right breast. A battery pack of a pacemaker is seen in the left axilla. No other significant abnormalities are identified. There has been no significant change since the prior study. BI/SCRN MAMM (CAD)W/MIKE BILAT IMPRESSION: Stable bilateral screening mammogram. Yearly follow-up mammogram recommended. (A) ASSESSMENT CATEGORY: BIRADS Category 2: Benign. A letter regarding these results will be sent to the patient by the facility within 30 days. Approximately 10% of breast cancers are not detected by mammography. A normal mammogram should not delay biopsy of a clinically suspicious abnormality. [id number] Electronically Signed: Bong Perla MD at 14:16 EST ,
== END | disposition home or self-care (01) ==
LOC: OPBI 13:06
PROVIDERS: PCP Student in an Organized Health Care Education/Training Program; Referring Provider Nurse Practitioner Women's Health; Visit Provider Nurse Practitioner Women's Health
DX: Z12.31 Encounter for screening mammogram for malignant neoplasm of breast (principal); Z80.3 Family history of malignant neoplasm of breast
CPT/HCPCS: 77063; 77067

== ENCOUNTER 2024-01-05 16:21 | Emergency (ER) | payer OTHER, SELFPAY ==
[2023-04-01 16:09] VITALS: BMI 33.4
[2024-01-05 16:21] VITALS: BP 134/84; PULSE 88; RESP 18; TEMP 36.8; O2SAT 94
--- NOTE | 2024-01-05 16:51 | EKG12_ITS ---
Test Reason : CP Blood Pressure : / mmHG Vent. Rate : 086 BPM Atrial Rate : 086 BPM P-R Int : 152 ms QRS Dur : 088 ms QT Int : 390 ms P-R-T Axes : 013 -02 -32 degrees QTc Int : 466 ms Sinus rhythm with sinus arrhythmia with occasional Premature ventricular complexes Nonspecific ST and T wave abnormality Prolonged QT Abnormal ECG Confirmed by Tenzin Bond ([id number]), content editor СЕРГЕЙ VALDERRAMA ([id number]) on 01/10/2024 1:46:15 PM Referred By: OG Confirmed By:Tenzin Bond
--- NOTE | 2024-01-05 16:55 | RAD_ITS ---
INDICATION: Chest discomfort and back pain, status post aortic -- Graft EXAMINATION/TECHNIQUE: X-RAY - XR Chest 2 Views COMPARISON: 11/24/2022. FINDINGS: The lungs are clear. Sternal cerclage wires and vascular clips are present from a prior sternotomy and coronary artery bypass graft procedure (CABG). Left-sided cardiac device. The heart is enlarged. No pleural effusion or pneumothorax. Degenerative changes of the thoracic spine. RAD/Chest PA and Lateral IMPRESSION: No acute radiographic abnormalities. Electronically Signed: Vicente Romo MD at 17:30 EDT ,
[2024-01-05 17:06] LABS: Absolute Lymphocyte Count 1.58 X10^3/uL (0.83-4.51); Absolute Neutrophil Count 4.4 X10^3/uL (2.0-7.7); Basophil# 0.09 X10^3/uL; Basophil% 1.3 % (0-1); Eosinophils% 1.5 % (0-5); Hematocrit 46.9 % (37-47); Hemoglobin 15.1 g/dL (12.0-15.0); Lymphocyte # 1.58 X10^3/ul (0.83-4.51); Lymphocyte % 23.4 % (19-41); Mean Corp Hgb Conc 32.2 g/dL (32-36); Mean Corpuscular Hgb 27.7 pg (27.0-32.0); Mean Corpuscular Volume 86.1 fL (81-99); Mean Platelet Vol. 10.6 fl (6.2-12.0); Monocyte# 0.56 X10^3/uL; Monocyte% 8.3 % (0-10); NRBC Flagged by Analyzer 0 % (0-5); Neutrophil # 4.39 X10^3/uL (2.7-7.7); Neutrophil % 65.1 % (47-70); Platelet Count 277 K/mm3 (150-450); RBC Distribution Width CV 14.6 % (11.6-14.6); RBC Distribution Width SD 45.8 fl (35.1-43.9); Red Blood Count 5.45 M/mm3 (4.2-5.4); White Blood Count 6.8 K/mm3 (4.4-11.0)
--- NOTE | 2024-01-05 17:08 | ED.VIS.CHEST ---
HPI History of Present Illness Chief Complaint: Chest Pain Detail of Chief Complaint: Chest discomfort that started several hours ago. Informant: patient and spouse/S.O. Onset/Context/Timing Onset: Today and Hours Activity at onset: sudden and rest Timing: Continuous Quality: Positive for Aching and Dull Location: Right Parasternal and Left Parasternal Current Severity: Mild Maximum Severity: Moderate Worsened By: Nothing Relieved By: Nothing Associated Symptoms: Negative for Nausea, Vomiting, Diaphoresis, Dyspnea, Cough, Fever, Lightheadedness, Acid Reflux or Palpitations Narrative Narrative: Patient is a 58-year-old female. She has history of thoracic aortic dissection and aneurysm status post stenting, sustained ventricular tachycardia, implantable cardiac defibrillator, nonobstructing atherosclerotic coronary disease, essential hypertension and cerebral infarct. There is also a history of spinal cord infarction. Patient presents with a dull anterior chest discomfort. She also complains of pain in the intrascapular region. Nothing makes the pain better or worse. There is no associated symptoms. Patient denies fever, chills night sweats. Patient denies upper respiratory tract infectious symptoms. Patient denies discomfort with breathing. Patient denies leg pain or discoloration. Her legs according to are more swollen than normal. 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 There is no history of peptic ulcers or hiatal hernia. She denies black or maroon-colored stool. Prior Similar Symptoms: No Recent Illness/Hospitalization: No CVD Risk Factors: Positive for Hypertension, Hypercholesterolemia and Family History 1' </=55 PE Risk Factors: Negative for Recent Travel/Surgery, Recent Immobilization, Prior DVT or PE, Cancer or OCP + Smoking + >/=35 TAD Risk Factors: Positive for Hypertension; Negative for Marfan's Syndrome or Family History [facility] Medical History Aortic dissection Stroke/cerebrovascular accident Hiatal hernia Left upper extremity deep vein thrombosis Nonobstructive atherosclerosis of coronary artery Cerebellar infarction (07/13/21) Essential hypertension Peripheral neuropathy Iron deficiency GERD (gastroesophageal reflux disease) Sustained ventricular tachycardia Cognitive dysfunction Radial artery thrombosis, left Seizure disorder Physical debility Intracerebral bleed due to trauma Acute blood loss anemia Insomnia Infarction of left basal ganglia History of IBS Tobacco dependence due to cigarettes, in remission History of aortic dissection (07/04/21) Neurogenic bladder Prediabetes DVT (deep venous thrombosis) (07/14/21) History of traumatic brain injury Urinary retention Major depressive disorder, recurrent severe without psychotic features Generalized anxiety disorder COVID-19 Ventricular tachycardia Former tobacco use CLARKE (obstructive sleep apnea) Chronic anemia Non-sustained ventricular tachycardia Seizures Arthritis Right inguinal hernia SBO (small bowel obstruction) Endometrial cancer Home Medications ?Medication ?Instructions ?Recorded ?Last Taken ?Type cholecalciferol (vitamin D3) 125 125 mcg PO DAILY Check with 07/02/21 Unknown History mcg (5,000 unit) tablet (Vitamin primary doctor D3) losartan 100 mg tablet 100 mg PO DAILY #0 tabs 08/07/21 Unknown Rx loratadine 10 mg tablet 10 mg PO DAILY 12/03/21 Unknown History metoprolol succinate 100 mg 100 mg PO DAILY 12/03/21 Unknown History tablet,extended release 24 hr clonidine HCl 0.2 mg tablet 0.2 mg PO BID 04/13/22 Unknown History fluticasone propionate 50 1 spray intranasal DAILY 09/28/22 Unknown History mcg/actuation nasal spray,suspension (Flonase Allergy Relief) gabapentin 400 mg capsule 400 mg PO .qpm and tid prn 09/28/22 Unknown History magnesium oxide 400 mg (241.3 mg 400 mg PO DAILY 09/28/22 Unknown History magnesium) tablet sennosides 8.6 mg-docusate sodium 2 tab PO DAILY PRN constipation 09/28/22 Unknown History 50 mg tablet (Stool Softener-Stimulant Laxative) turmeric curcumin 1 cap PO DAILY 09/28/22 Unknown History zinc 50 mg capsule 50 mg PO DAILY 11/24/22 Unknown History ascorbic acid (vitamin C) 500 mg 500 mg PO DAILY 11/25/22 Unknown History capsule atorvastatin 40 mg tablet 40 mg PO QHS 30 days #30 tabs 11/25/22 Unknown Rx buspirone 10 mg tablet 20 mg PO BID 11/25/22 Unknown History clopidogrel 75 mg tablet (Plavix) 75 mg PO DAILY #30 tabs 11/25/22 Unknown Rx ferrous sulfate 325 mg (65 mg 325 mg PO DAILY 11/25/22 Unknown History iron) tablet (iron) pumpkin seed extract 500 mg 1,000 mg PO DAILY 11/25/22 Unknown History capsule (Azo Men) cephalexin 500 mg capsule 500 mg PO .tuesday03/18/23 Unknown History duloxetine 30 mg capsule,delayed 90 mg PO QHS 03/18/23 Unknown History release (Cymbalta) hydrochlorothiazide 25 mg tablet 50 mg PO DAILY 03/18/23 Unknown History hydrocodone-acetaminophen 5-325mg 1 tab PO Q6H PRN PRN Pain 3 days 03/18/23 Unknown Rx 5mg-325mg #12 TABLETS Allergy/AdvReac Type Severity Reaction Status Date / Time nitrofurantoin (From Allergy Hives Verified 01/05/24 16:25 Macrobid) Penicillins (PCN) Allergy Swelling Verified 01/05/24 16:25 amlodipine AdvReac Other Verified 01/05/24 16:25 ciprofloxacin AdvReac Other Verified 01/05/24 16:25 erythromycin base AdvReac Upset Verified 01/05/24 16:25 (Erythromycin Base) Stomach lisinopril AdvReac Other Verified 01/05/24 16:25 sulfamethoxazole (From AdvReac Upset Verified 01/05/24 16:25 Bactrim) Stomach trimethoprim (From Bactrim) AdvReac Upset Verified 01/05/24 16:25 Stomach Family History Mother Cancer Hx endometrial CA. Hypertension Father Myocardial infarction Heart disease Hypertension Grandfather CAD (coronary artery disease) Diabetes Daughter Seizures Surgical History History of aortic valve replacement (07/04/21) History of left heart catheterization (06/16/20) History of inguinal hernia repair History of implantable cardiac defibrillator (ICD) (06/18/20) Hx of repair of dissecting thoracic aortic aneurysm, [place] type A (07/04/21) History of radiofrequency ablation (RFA) procedure for cardiac arrhythmia (07/16/21) H/O umbilical hernia repair Hx of breast reduction, elective Status post club foot correction at History of cholecystectomy H/O: hysterectomy (2005) Social History adopted: No household members: spouse housing: house number of children: 2 current occupational status: disabled other: She is and her dtr at the age of 8. She had seizures. Smoking Status: Former smoker how long ago did patient quit smoking: She quit smoking in 1995 alcohol intake: current alcohol intake frequency: holidays/special occasions only substance use type: does not use additional social history: - Roberto- ODOT ROS ROS ED Constitutional Constitutional ED: Denies chills, fever(s), subjective or sweats Eyes Eyes: Reports none ENT ENT ED: Denies ear pain, rhinorrhea or sore throat Cardiovascular Cardiovascular: Reports as per HPI and chest pain; Denies orthopnea, palpitations, paroxysmal nocturnal dyspnea or racing heartbeat Respiratory/Chest Respiratory/Chest: Denies cough, dyspnea, dyspnea on exertion, orthopnea or paroxysmal nocturnal dyspnea Gastrointestinal Gastrointestinal: Denies abdominal pain, melena, nausea or vomiting Musculoskeletal Musculoskeletal: Reports back pain and other Details: The back pain is intrascapular region. ; Denies arthralgias, myalgias or neck pain Integumentary Denies abscess, Abrasions or rash Neurologic Neurologic: Denies headache(s) or paresthesias Psychiatric Psychiatric: Denies anxiety or depression Hematologic/Lymphatic Hematologic/Lymphatic: Denies easy bleeding or easy bruising EXAM Physical Exam Const Vital Signs: 01/05/24 16:21 01/05/24 17:21 01/05/24 18:00 Temperature 98.2 F Temperature Source Temporal Pulse Rate 88 75 Respiratory Rate 18 Blood Pressure 134/84 H 100/85 H 114/89 H Blood Pressure Mean 100 90 99 Pulse Ox 94 95 Oxygen Delivery Method Room Air Room Air 01/05/24 18:45 01/05/24 19:00 Temperature Temperature Source Pulse Rate 75 74 Respiratory Rate 17 23 H Blood Pressure 134/65 H 124/63 H Blood Pressure Mean 84 80 Pulse Ox 88 90 Oxygen Delivery Method Positive well nourished and well developed General Appearance ED: well developed and NAD HEENT Reports moist mucous membranes HEENT Narrative: Ears are normal. normocephalic and atraumatic Eyes PERRL and EOMs intact bilaterally General Eye ED: Negative for pale conjunctiva or scleral icterus Neck no lymphadenopathy, supple and no JVD Chest Wall inspection of chest normal and palpation of chest normal Resp normal respiratory effort and clear to auscultation bilaterally Cardio regular rate, regular rhythm, S1 normal heart sound, S2 normal heart sound and no murmurs GI normal to inspection, nondistended, normoactive bowel sounds, soft to palpation, non-tender, non-distended and no masses; Negative for hepatosplenomegaly GI Narrative: There is no pulsatile mass or abdominal bruit. Back/Spine no CVA tenderness and no thoracic nor lumbar tenderness Neuro oriented x3, CN's II-XII intact bilaterally, no sensory deficits noted and gait normal Sensorium / Orientation: awake and alert Psych mental status grossly normal Skin no rashes or lesions noted and no wounds Heart Score History: Slightly/Non-Suspicious Age: >45 - <65 years Risk Factors: 1 or 2 Risk Factors Troponin: </= Normal Limit Score: 2 MDM MDM MDM Narrative Medical decision making narrative: Differential diagnosis would be chest pain of unknown etiology, GI etiology, pulmonary etiology history is not consistent with pulmonary embolus. This may be an atypical presentation for cardiac. With patient having repair of thoracic aneurysm/dissection doubt this to be the cause. Her blood pressure is not markedly elevated since hypertension may cause increased afterload causing her to have discomfort since she has nonobstructing coronary disease. History & Record Review Additional record(s) reviewed:: Prior outpatient record, Prior ED visit and Prior labs Lab Data Attestation: I reviewed the patient's lab results. Lab results narrative: CBC is unremarkable. Electrolyte panel is unremarkable. Creatinine slight elevated 1.17 with estimated GFR 51. First troponin is normal at 11. 2-hour troponin is 12 with a delta of 1. This would essentially rule out cardiac etiology. The cause of her pain is uncertain. Will discharge her to home to follow-up with her doctor. Labs: Laboratory Results - last 24 hr 01/05/24 01/05/24 16:39 19:18 WBC 6.8 RBC 5.45 H Hgb 15.1 H Hct 46.9 MCV 86.1 MCH 27.7 MCHC 32.2 RDW Std Deviation 45.8 H RDW Coeff of Love 14.6 Plt Count 277 MPV 10.6 Immature Gran % (Auto) 0.400 Neut % (Auto) 65.1 Lymph % (Auto) 23.4 [place] % (Auto) 8.3 Eos % (Auto) 1.5 Baso % (Auto) 1.3 H Absolute Neuts (auto) 4.4 Absolute Lymphs (auto) 1.58 Nucleated RBC % 0 Sodium 142 Potassium 3.2 L Chloride 107 Carbon Dioxide 29.0 Anion Gap 6 BUN 12 Creatinine 1.17 H Est GFR (MDRD) Af Amer 61 Est GFR (MDRD) Non-Af 51 L BUN/Creatinine Ratio 10.3 Glucose 121 H Calcium 9.5 Troponin I High Sens 11 12 Radiography Chest X-Ray - ED: 2 View and Read by ED Physician (There is no acute findings. There is evidence of a thoracic stent to repair her thoracic dissection. Cardiac silhouette and size normal. Lung parenchyma is unremarkable with no acute findings. Osseous structures are unremarkable.) Diagnostic Testing: Clinical Impression(s) from Imaging Studies Chest X-Ray 01/05/24 16:55 IMPRESSION: No acute radiographic abnormalities. Electronically Signed: Vicente Romo MD at 17:30 EDT , Discharge Plan Triage Chief Complaint: Chest Pain ED Provider: Miguel Up Dx/Rx/DC Orders Clinical Impression: Chest discomfort, History of aortic dissection, Hx of repair of dissecting thoracic aortic aneurysm, [place] type A, History of implantable cardiac defibrillator (ICD), Essential hypertension, Nonobstructive atherosclerosis of coronary artery, History of aortic valve replacement Instructions: ED Chest Pain, Uncertain Cause Prescriptions: No Action gabapentin 400 mg capsule 400 mg PO .qpm and tid prn loratadine 10 mg tablet 10 mg PO DAILY metoprolol succinate 100 mg tablet extended release 24 hr 100 mg PO DAILY magnesium oxide 400 mg (241.3 mg magnesium) tablet 400 mg PO DAILY clonidine HCl 0.2 mg tablet 0.2 mg PO BID sennosides-docusate sodium [Stool Softener-Stimulant Laxat] 8.6-50 mg tablet 2 tab PO DAILY PRN (Reason: constipation) fluticasone propionate [Flonase Allergy Relief] 50 mcg/actuation spray,suspension 1 spray intranasal DAILY Rx Instructions: administer into each nostril turmeric curcumin 1 cap PO DAILY cholecalciferol (vitamin D3) [Vitamin D3] 125 mcg (5,000 unit) Tablet 125 mcg PO DAILY losartan 100 mg Tablet 100 mg PO DAILY Qty: 0 0RF cephalexin 500 mg capsule 500 mg PO .tuesday hydrochlorothiazide 25 mg tablet 50 mg PO DAILY duloxetine [Cymbalta] 30 mg capsule,delayed release(DR/EC) 90 mg PO QHS Rx Instructions: Take with one 60 mg for total of 90 mg po daily. hydrocodone-acetaminophen [hydrocodone-acetaminophen] 5-325 mg tablet 1 tab PO Q6H PRN PRN (Reason: Pain) 3 Days Qty: 12 0RF zinc 50 mg capsule 50 mg PO DAILY ascorbic acid (vitamin C) 500 mg capsule 500 mg PO DAILY buspirone 10 mg tablet 20 mg PO BID ferrous sulfate [iron] 325 mg (65 mg iron) tablet 325 mg PO DAILY Azo Men 500 mg capsule 1,000 mg PO DAILY atorvastatin 40 mg Tablet 40 mg PO QHS 30 Days Qty: 30 0RF clopidogrel [Plavix] 75 mg tablet 75 mg PO DAILY Qty: 30 0RF Primary Care Provider: Slim Denson Referrals: Slim Denson DO [Primary Care Provider] - 3-5 Days Print Language: Kazakh Disposition Disposition: Home, Self Care
[2024-01-05 17:21] VITALS: BP 100/85; PULSE 75; O2SAT 95
[2024-01-05 17:24] LABS: Anion Gap 6 (5-15); BUN 12 mg/dL (7-18); BUN/Creat Ratio 10.3 RATIO (10-20); Calcium,Total 9.5 mg/dL (8.5-10.1); Chloride 107 mmol/L (98-107); Creatinine, Serum 1.17 mg/dL (0.55-1.02); EST Glomerular Filtration Rate 51 mL/min (>60); Est Glom Filt Rate - Afr Amer 61 mL/min (>60); Glucose 121 mg/dL (74-106); Potassium 3.2 mmol/L (3.5-5.1); Sodium Level 142 mmol/L (136-145); Troponin-I HS (w/2H Reflex) 11 pg/mL (3.0-54.0)
[2024-01-05 18:00] VITALS: BP 114/89
[2024-01-05 18:45] VITALS: BP 134/65; PULSE 75; RESP 17; O2SAT 88
[2024-01-05 18:58] LABS: Reflex Troponin-HS? (from REC) Y
[2024-01-05 19:00] VITALS: BP 124/63; PULSE 74; RESP 23; O2SAT 90
[2024-01-05 19:44] LABS: Troponin-I HS 12 pg/mL (3.0-54.0)
[2024-01-05 19:47] VITALS: BP 124/63; PULSE 74; RESP 20; TEMP 36.6; O2SAT 95
== END 2024-01-05 19:50 | disposition home or self-care (01) ==
PROVIDERS: Emergency Provider Emergency Medicine; PCP Student in an Organized Health Care Education/Training Program; Visit Provider Emergency Medicine
DX: R07.89 Other chest pain (principal); I71.010 Dissection of ascending aorta; I25.10 Atherosclerotic heart disease of native coronary artery without angina pectoris; I10 Essential (primary) hypertension; Z87.891 Personal history of nicotine dependence; Z95.2 Presence of prosthetic heart valve; Z95.810 Presence of automatic (implantable) cardiac defibrillator; Z86.73 Personal history of transient ischemic attack (TIA), and cerebral infarction without residual deficits; Z79.899 Other long term (current) drug therapy; Z79.02 Long term (current) use of antithrombotics/antiplatelets; F33.9 Major depressive disorder, recurrent, unspecified; F41.1 Generalized anxiety disorder; Z90.49 Acquired absence of other specified parts of digestive tract; Z90.710 Acquired absence of both cervix and uterus
CPT/HCPCS: 71046; 80048; 84484; 85025; 93005; 99284; A4216

== ENCOUNTER → 2024-08-14 | Outpatient (CLI) | payer MEDICARE, OTHER, SELFPAY ==
[2023-04-01 16:09] VITALS: BMI 33.4
--- NOTE | 2024-08-14 14:47 | MRI_ITS ---
PROCEDURE: SPINE LUMBAR (ROUTINE) 08/14/2024 REASON FOR EXAM: RADICULOPATHY TECHNIQUE: Multiplanar and multisequence images were obtained without IV contrast administration. FINDINGS: Vertebrae: No vertebral fracture. Alignment: Normal alignment. Conus Medullaris: L1. L1-2: Unremarkable L2-3: Some disc desiccation but no disc protrusion, spinal stenosis, or neural foraminal stenosis. L3-4: Mild bilobed disc protrusion produces minimal spinal stenosis and mild right neural foraminal stenosis. L4-5: Unremarkable L5-S1: Unremarkable Sacrum: Unremarkable. Moderate friction related edema of the posterior subcutaneous fat. MRI/Spine Lumbar (Routine) IMPRESSION: MILD DEGENERATIVE CHANGES WITHOUT EVIDENCE OF SIGNIFICANT CENTRAL CANAL STENOSI S OR NERVE ROOT IMPINGEMENT. Reading Location: [id number]
[2024-08-14 15:10] VITALS: BP 121/72; PULSE 62; RESP 14; O2SAT 92
[2024-08-14 15:25] VITALS: BP 132/76; PULSE 80; RESP 16; O2SAT 93
[2024-08-14 15:40] VITALS: BP 109/70; PULSE 79; RESP 16; O2SAT 95
[2024-08-14 15:51] VITALS: BP 116/70; PULSE 81; RESP 16; O2SAT 92
[2024-08-14 15:59] VITALS: BP 121/64; PULSE 60; RESP 16; O2SAT 94
== END | disposition home or self-care (01) ==
LOC: MRI 14:37
PROVIDERS: PCP Student in an Organized Health Care Education/Training Program; Referring Provider Nurse Practitioner Family; Visit Provider Nurse Practitioner Family
DX: M54.16 Radiculopathy, lumbar region (principal)
CPT/HCPCS: 72148

== ENCOUNTER 2024-08-31 14:30 | Outpatient (RCR) | payer OTHER, MEDICARE, SELFPAY ==
[2023-04-01 16:09] VITALS: BMI 33.4
--- NOTE | 2024-06-29 13:24 | HP.PTEVAL2 ---
Patient's Visit Information Visit Information Visit Information: ANGELITO LIVE is a 59 year old F referred to Physical Therapy by CALVIN WELDON APRN, CP with a diagnosis of TMJ. Date of Evaluation: 06/29/24 Physical Therapist: Aric Coy PT, Cert MDT, OCS Visit Plan Frequency: 2x /Week Duration: 4 Weeks Plan: PT INTERVENTIONS FOCUSING ON MANUAL THERAPY STM ( MASSTER ,SCM TMJ ,CERVICAL MUSCLES ,SUB OCCIPITAL,TEMPORALIS ) ,US MHP AND POSTURAL EX'S Subjective Subjective: This 59 y/o female presents to physical therapy with TMJ. Patient has had TMJ ~ 2 years . Patient had PT in past and helped . Recently seen DR and recommended PT. Patient prescribed muscle relaxers . Patient pain location masseters and TMJ. Patient has had sinus problems.Patient grinds mainly at night occasionally during day. Patient has cervical pain and denies TRAN. Stress can causes clenching of the teeth. Patient has sensitive teeth but no loosening. Patient has not seen Dentist. Opening jaw pain. Occasional chew food. Patient has no clicking or popping or locking up. Patient able to eat w/o pain. Patient condition affects QOL and function. Patient goals to have no pain. SOCAIL: VOCATION: disability Pain Bilateral Face: Intensity: 5 Pain Intensity Range: 10 Objective Objective: POSTURE: rounded shoulders head forward GAIT: patient ambulates with fww ( has back pain) PALPATION: TTP- TMJ ,Masster ,SCM Sub Occipital ,UT traps ,posterior cervical paraspinals CERVICAL ROM : flexion min loss ,rotation min loss ,lateral flexion min/mod ,min/mod rotation ,cervical retraction WFL MANAIBLE ROM: vertical opening 32 mm ,right deviation 21 mm ,left 22 mm ,protrusion 5 mm Special Tests C/S Radiculapathy - Left Upper limb tension test: Negative C/S Radiculapathy - Right Upper limb tension test: Negative C/S Radiculapathy - Left Spurlings: Negative C/S Radiculapathy - Right Spurlings: Negative C/S Radiculapathy - Left Cervical distraction: Negative C/S Radiculapathy - Left Relief test: Negative C/S Radiculapathy - Right Relief test: Negative Sharp Sneha: Negative Vertebral Artery Test: Negative Alar Ligament Test: Negative Goals Goal 1:: Patient to be I with HEP for TMJ Goal Time Frame: 4-6 Weeks Goal 2:: Patient to demonstrate 50% improvement with less pain and improved function. Goal Time Frame: 4-6 Weeks Goal 3:: Patient to improve vertical opening mouth by 5mm to diminish soreness TMJ Goal Time Frame: 4-6 Weeks Goal 4:: Patient to have decrease soreness with palpation TMJ Goal Time Frame: 4-6 Weeks Rehabilitation Potential Physical Therapy Diagnosis: Patient has TMJ muscle soreness no clicking/popping decrease vertical opening of mouth but no pain ,juts TTP through jaw and neck region thus benefit from skilled PT Rehabilitation Potential: Good Anticipated Interventions Patient/Client Instruction: Educate patient on: Condition and Plan of Care For the Purpose of:: To decrease pain, To increase ROM, To improve nutrient delivery to tissue, To increase oxygenation perfusion, To improve health of tissue, To decrease soft tissue restriction and To increase flexibility/ROM Therapeutic Exercise to Include: Strength training, Postural training, Flexibilty training and Active ROM For the Purpose of:: To decrease pain, To increase ROM, To improve health of tissue, To decrease soft tissue restriction and Other Other: TMJ Manual Therapy Techniques to Include: Mobilization and Soft tissue mobilization Comment: MASSTER ,SCM TMJ ,CERVICAL MUSCLES ,SUB OCCIPITAL For the Purpose of:: To decrease pain, To increase ROM, To improve health of tissue and To decrease soft tissue restriction Thermo therapy (hot pack): Yes Ultrasound (thermal/non thermal): Yes For the Purpose of:: To decrease pain, To increase ROM, To improve nutrient delivery to tissue, To increase oxygenation perfusion, To improve health of tissue and To decrease soft tissue restriction Other: DRY NEEDLING NEEDED text: Thank you for the opportunity to evaluate your patient. For Medicare and Medicare HMO plans, please review the plan of care and approve it. It will need to be FAXED BACK to us at [phone] for Medicare purposes. For Medicare only, by signing this I certify the plan of care. Please let me know if there are questions or concerns regarding this plan of care. Physician Signature: Date:
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
--- NOTE | 2024-08-08 14:19 | HP.PTREVAL ---
Re-Evaluation Intro: Dr. Olegario Workman MD, It has been my pleasure to treat ANGELITO LIVE over the last 8 visits for CHRONIC MAHI BACK PAIN AND DIFFUSE MYOFASCIAL PAIN SYNDROME. Please see the progress note below for an update on the physical therapy plan of care! Subjective Subjective: PATIENT REPORTS SHE IS GETTING STRONGER AND WALKING BETTER. SHE IS REQUESTING TO CONTINUE AQUATIC THERAPY SO SHE CAN CONTINUE TO IMPROVE AND EVENTUALLY LEARN WHAT TO DO ON HER OWN. DENIES ANY FALLS SINCE SINCE STARTING PT. Objective Objective/Function: PATIENT WAS SEEN TODAY FOR RE-ASSESSMENT OF PROGRESS TOWARD THE SET PT GOALS AND THE NEED FOR FURTHER PHYSICAL THERAPY VS READINESS FOR DISCHARGE. THIS PATIENT IS MAKING GOOD PROGRESS WITH PT AND IS A GOOD CANDIDATE TO CONTINUE PT BASED ON PROGRESS MADE AND ROOM FOR FURTHER IMPROVEMENT. PATINET IS AGREEABLE. UPON EXAM TODAY: PATIENT AMBULATES INDEP'LY INTO PT WITH FWW X APPROX 300 FEET WITHOUT STOPPING TO REST THIS TIME COMPARED TO STOPPING TO REST IN STANDING 2-3 TIMES FOR A FEW MOMENTS AT INITIAL EVAL. ABLE TO INDEP'LY TRANSFER SIT TO STAND TODAY WITHOUT UE ASSIST. Lumbar mvmt loss: flex - MIN ext - MOD R SG - MOD L SG - MOD PATIENT REPORTS MILD INCREASED LOW BACK AND L RIB PAIN WITH MAHI SG TESTING TODAY. Thoracic Mvmt Loss: Rot - RUBIO MVMT LOSS MAHI THORACIC ROT AND TESTING PROVOKES IPSILATERAL RIB PAIN - NW Core strength: poor Palpation: PATIENT DENIES TENDERNESS WITH PALPATION TODAY TUG TEST: 28.11 WITH FWW 30 STS TEST: 5 WITHOUT UE ASSIST. Plan Plan Plan: CONTINUE PT 2X'S A WK X 10 TO 12 VISITS: *NO LIFTING > 20 LBS* AQUATIC THERAPY 2X'S A WK X 6-8 WKS FOR PAIN RELIEF, POSTURE CORRECTION/STRENGTHENING, INSTRUCTION IN APPROPRIATE BODY MECHANICS AND ACTIVITY MODIFICATIONS. DLS WITH A NEUTRAL SPINE ONLY. MAHI LE ROM, STRETCHING AND STRENGTHENING. HEP INSTRUCTION. Balance/Gait/Functional tests Balance/Special Test Scores Oswestry Low Back Score: 29 Oswestry Neck Score: 16 Goals Goals Goal 1:: DECREASE C/O BACK, RIB AND R HIP PAIN BY AT LEAST 50% TO EASE ADL'S Goal Time Frame: 6-8 Weeks Goal Progress: Progressing Goal 2:: INCREASE PAINFREE TRUNK AND LE ROM TO EASE ADL'S. Goal Time Frame: 6-8 Weeks Goal Progress: Progressing Goal 3:: PATIENT WILL COMPLETE 6 STANDS IN 30 SECS WITHOUT UE ASSIST TO DEMONSTRATE IMPROVED FUNCTIONAL STRENGTH Goal Time Frame: 6-8 Weeks Goal Progress: Progressing Goal 4:: PATIENT WILL COMPLETE TUG IN < 25 SECS WITH FWW TO DEMONSTRATE IMPROVED GAIT STABILITY Goal Time Frame: 6-8 Weeks Goal Progress: Progressing Goal 5:: INDEP WATER AND HEP Goal Time Frame: 6-8 Weeks Goal Progress: Progressing Anticipated Interventions Anticipated Interventions Patient/Client Instruction: Educate patient on: Condition, Plan of Care and Risk Factors For the Purpose of:: To improve self management Therapeutic Exercise to Include: Strength training, Body mechanics, Postural training, Flexibilty training, Gait and locomotor training, Neuromotor development, In an aquatic setting and Dynamic Lumbar Stabilization For the Purpose of:: To decrease pain, To improve muscle performance and motor function, To improve ability to perform ADL's, To increase tolerance to activity/condition/position, To improve ability of physical actions for home/community/work/leisure, To improve gait and locomotor functions, To improve safety with gait and To improve self management Re-Evaluation Ending Re-evaluation ending: Please do not hesitate to contact me at [phone] by phone or if you have questions or concerns regarding this new plan of care! Sincerely, Puja Mccarty, PT, Cert MDT
--- NOTE | 2024-08-08 14:34 | HP.PTDCS(2) ---
Discharge Summary D/C Summary: It has been my pleasure to treat ANGELITO LIVE referred by Dr. Olegario Workman MD, with the diagnosis of TMJ for a total of 10 visit(s). Discharge Date: 08/08/24 Please see the following information for a summary of their discharge status. Subjective Subjective: Pain is better is some . Symptoms worse with chewing hard foods Patient has h/o grinding teeth ,but thins less Uses sleep apnea machine HOLD TMJ focus on land Overall Improvement % Improvement: 50 Objective Objective/Function/Assessment: POSTURE: rounded shoulders head forward GAIT: patient ambulates with fww ( has back pain) PALPATION: TTP- TMJ ,Masster ,SCM Sub Occipital ,UT traps ,posterior cervical paraspinals CERVICAL ROM : flexion min loss ,rotation min loss ,lateral flexion min/mod ,min/mod rotation ,cervical retraction WFL MANAIBLE ROM: vertical opening 32 mm ,right deviation 21 mm ,left 22 mm ,protrusion 5 min Goals Patient Goals: Decrease Pain, Alleviate Pain and Improve ROM Goal 1:: Patient to be I with HEP for TMJ Goal Progress: Goal Met Goal 2:: Patient to demonstrate 50% improvement with less pain and improved function. Goal Progress: Goal Met Goal 3:: Patient to improve vertical opening mouth by 5mm to diminish soreness TMJ Goal Progress: Progressing Goal 4:: Patient to have decrease soreness with palpation TMJ Goal Progress: Progressing Plan Plan: D/C RTD AND MAY TO [facility] D/C Information d/c sentence: If there are questions or concerns regarding this patient's physical therapy, please feel free to call me at [phone]. Thank you for the referral of this patient. Sincerely, Aric Coy, PT, Cert MDT, OCS Balance/Special Test Scores Improvement % Improvement: 50
--- NOTE | 2024-08-31 16:43 | HP.PTDCSUM ---
Discharge Summary D/C summary: It has been my pleasure to treat ANGELITO LIVE referred by Dr. Olegario Goins MD, with the diagnosis of CHRONIC MAHI BACK PAIN AND DIFFUSE MYOFASCIAL PAIN SYNDROME for a total of 25 visit(s). Discharge Date: 08/31/24 Please see the following information for a summary of their discharge status. Subjective Subjective: PATIENT REPORTS SHE HAS GOTTEN STRONGER AND IS WALKING BETTER. FEELS SHE HAS BENEFITTED FROM AQUATIC THERAPY AND PLANS TO JOIN [facility] NEXT WEEK TO CONTINUE WATER EX ON HER OWN. ALSO REPORTS SHE IS DOING HER HEP. NO FALLS SINCE LAST RECHECK BUT STILL REPORTS NEAR FALLS. PATIENT REPORTS HER JAW HURTS MORE THAN ANYTHING AT THIS POINT AND PLANS TO PURSUE THERAPY FOR HER JAW IN THE FUTURE IF PCP AGREEABLE. WILL FOLLOW UP WITH DR. GOINS OR PCP NEEDED. Pain RLE: Pain Intensity (Out of 10): 3 BACK: Pain Intensity (Out of 10): 3 B ANKLES: Pain Intensity (Out of 10): 4 B thighs: Pain Intensity (Out of 10): 0 L knee: Pain Intensity (Out of 10): 5 Overall Improvement % Improvement: 75 Objective Objective/Function: PATIENT WAS SEEN TODAY FOR RE-ASSESSMENT OF PROGRESS TOWARD THE SET PT GOALS AND THE NEED FOR FURTHER PHYSICAL THERAPY VS READINESS FOR DISCHARGE. UPON EXAM TODAY: PATIENT AMBULATES INDEP'LY INTO PT WITH FWW X ~300 FEET WITHOUT STOPPING TO REST. ABLE TO INDEP'LY TRANSFER SIT TO STAND WITHOUT UE ASSIST. SHE STATES I NEVER THOUGHT I WOULD BE ABLE TO GET UP WITHOUT USING MY HANDS. Lumbar mvmt loss: flex - MIN ext - MOD R SG - MOD L SG - MOD PATIENT REPORTS MILD INCREASED LBP WITH EXT ROM TESTING AND MAHI RIB PAIN WITH R SG TESTING BUT NW A RESULT. Thoracic Mvmt Loss: Rot - MOD MVMT LOSS MAHI THORACIC ROT AND B TESTING PROVOKES C/O R RIB PAIN TODAY - NW Core strength: POOR TUG TEST: 24.92 WITH FWW 30 STS TEST: 7 WITHOUT UE ASSIST. Goals Goal 1:: DECREASE C/O BACK, RIB AND R HIP PAIN BY AT LEAST 50% TO EASE ADL'S Goal Progress: Goal Met Goal 2:: INCREASE PAINFREE TRUNK AND LE ROM TO EASE ADL'S. Goal Progress: Goal Met Goal 3:: PATIENT WILL COMPLETE 6 STANDS IN 30 SECS WITHOUT UE ASSIST TO DEMONSTRATE IMPROVED FUNCTIONAL STRENGTH Goal Progress: Goal Met Goal 4:: PATIENT WILL COMPLETE TUG IN < 25 SECS WITH FWW TO DEMONSTRATE IMPROVED GAIT STABILITY Goal Progress: Goal Met Goal 5:: INDEP WATER AND HEP Goal Progress: Goal Met Plan Plan: D/C TO INDEP HOME AND WATER EX. D/C Information d/c sentence: If there are questions or concerns regarding this patient's physical therapy, please feel free to call me at [phone]. Thank you for the referral of this patient. Sincerely, Puja Mccarty, PT, Cert MDT Balance/Gait/Functional tests Balance/Special Test Scores Oswestry Low Back Score: 25 Oswestry Neck Score: 16 Improvement % Improvement: 75
== END 2024-08-31 19:00 | disposition home or self-care (01) ==
LOC: PT 14:30
PROVIDERS: PCP Student in an Organized Health Care Education/Training Program; Referring Provider Anesthesiology Pain Medicine; Visit Provider Anesthesiology Pain Medicine
DX: M54.9 Dorsalgia, unspecified (principal); M79.18 Myalgia, other site; G89.29 Other chronic pain
CPT/HCPCS: 97110; 97113; 97140; 97162; 97530

== ENCOUNTER 2024-09-30 20:59 | Emergency (ER) | payer OTHER, MEDICARE, SELFPAY ==
[2023-04-01 16:09] VITALS: BMI 33.4
[2024-09-30 21:00] VITALS: BP 147/77; PULSE 70; RESP 18; TEMP 36.9; O2SAT 95
--- NOTE | 2024-09-30 21:50 | EDS_ITS ---
HPI History of Present Illness Chief Complaint: Ear Problem Informant: patient Narrative Narrative: Patient is a 59-year-old female with history of frequent urinary tract infections and type a thoracic aortic dissection as well as hypertension presenting with worsening ear pain. Patient states that she has had cough for 3 days has been mostly nonproductive. Last night she developed some left-sided ear pain around midnight. Had a hard time sleeping because of it. She did take some Tylenol dual action. Throughout the day she felt okay but around 7 PM she started to have severe left-sided ear pain again. She does have some mild pain in her right ear but is not as bad. Denies any ringing in her ears but does note that her hearing seems off and almost as if she is underwater. Denies any significant nasal congestion, fever or sore throat. Has appointment to see her primary care doctor but did not think she could wait. Did take liquid decongestant around 7 PM with no significant relief of her symptoms. No other complaints or concerns at this time. [facility] Medical History Aortic dissection Stroke/cerebrovascular accident Hiatal hernia Left upper extremity deep vein thrombosis Nonobstructive atherosclerosis of coronary artery Cerebellar infarction (07/13/21) Essential hypertension Peripheral neuropathy Iron deficiency GERD (gastroesophageal reflux disease) Sustained ventricular tachycardia Cognitive dysfunction Radial artery thrombosis, left Seizure disorder Physical debility Intracerebral bleed due to trauma Acute blood loss anemia Insomnia Infarction of left basal ganglia History of IBS Tobacco dependence due to cigarettes, in remission History of aortic dissection (07/04/21) Neurogenic bladder Prediabetes DVT (deep venous thrombosis) (07/14/21) History of traumatic brain injury Urinary retention Major depressive disorder, recurrent severe without psychotic features Generalized anxiety disorder COVID-19 Ventricular tachycardia Former tobacco use CLARKE (obstructive sleep apnea) Chronic anemia Non-sustained ventricular tachycardia Seizures Arthritis Right inguinal hernia SBO (small bowel obstruction) Endometrial cancer Home Medications ?Medication ?Instructions ?Recorded ?Last Taken ?Type cholecalciferol (vitamin D3) 125 125 mcg PO DAILY Chec k with 07/02/21 Unknown History mcg (5,000 unit) tablet (Vitamin primary doctor D3) losartan 100 mg tablet 100 mg PO DAILY #0 tabs 07/24 09/13 Unknown Rx loratadine 10 mg tablet 10 mg PO DAILY 08/11/22 Unkn own History metoprolol succinate 100 mg 100 mg PO DAILY 12/03/21 U nknown History tablet,extended release 24 hr clonidine HCl 0.2 mg tablet 0.2 mg PO BID 04/13/22 Unk nown History fluticasone propionate 50 1 spray intranasal DAILY 10/15 Unknown History mcg/actuation nasal spray,suspension (Flonase Allergy Relief) gabapentin 400 mg capsule 400 mg PO .qpm and tid prn 0 09/28/22 Unknown History magnesium oxide 400 mg (241.3 mg 400 mg PO DAILY 09/28 Unknown History magnesium) tablet sennosides 8.6 mg-docusate sodium 2 tab PO DAILY PRN c onstipation 09/28/22 Unknown History 50 mg tablet (Stool Softener-Stimulant Laxative) turmeric curcumin 1 cap PO DAILY 09/28/22 Unkn own History zinc 50 mg capsule 50 mg PO DAILY 11/24/22 Unkn own History ascorbic acid (vitamin C) 500 mg 500 mg PO DAILY 11/25 Unknown History capsule atorvastatin 40 mg tablet 40 mg PO QHS 30 days #30 tab s 11/25/22 Unknown Rx buspirone 10 mg tablet 20 mg PO BID 11/25/22 Unknow n History clopidogrel 75 mg tablet (Plavix) 75 mg PO DAILY #30 t abs 11/25/22 Unknown Rx ferrous sulfate 325 mg (65 mg 325 mg PO DAILY 11/25/22 Unknown History iron) tablet (iron) pumpkin seed extract 500 mg 1,000 mg PO DAILY 11/25/22 Unknown History capsule (Azo Men) cephalexin 500 mg capsule 500 mg PO .tuesday03/18/23 U nknown History duloxetine 30 mg capsule,delayed 90 mg PO QHS 03/18/23 Unknown History release (Cymbalta) hydrochlorothiazide 25 mg tablet 50 mg PO DAILY Unknown History hydrocodone-acetaminophen 5-325mg 1 tab PO Q6H PRN PRN Pain 3 days 03/18/23 Unknown Rx 5mg-325mg #12 TABLETS cefdinir 300 mg capsule 300 mg PO BID 7 days #14 cap s 09/30/24 Unknown Rx oxycodone 5 mg tablet 5 mg PO BID PRN pain 2 days #4 tabs 09/30/24 Unknown Rx Allergy/AdvReac Type Severity Reaction Status Date / Time nitrofurantoin (From Allergy Hives Verified 09/30/24 21:00 Macrobid) Penicillins (PCN) Allergy Swelling Verified 09/30/24 21:00 amlodipine AdvReac Other Verified 09/30/24 21:00 ciprofloxacin AdvReac Other Verified 09/30/24 21:00 erythromycin base AdvReac Upset Verified 09/30/24 21:00 (Erythromycin Base) Stomach lisinopril AdvReac Other Verified 09/30/24 21:00 sulfamethoxazole (From AdvReac Upset Verified 09/30/24 21:00 Bactrim) Stomach trimethoprim (From Bactrim) AdvReac Upset Verified 09/30/24 21:00 Stomach Family History Mother Cancer Hx endometrial CA. Hypertension Father Myocardial infarction Heart disease Hypertension Grandfather CAD (coronary artery disease) Diabetes Daughter Seizures Surgical History History of aortic valve replacement (07/04/21) History of left heart catheterization (06/16/20) History of inguinal hernia repair History of implantable cardiac defibrillator (ICD) (06/18/20) Hx of repair of dissecting thoracic aortic aneurysm, [place] type A (07/04/21) History of radiofrequency ablation (RFA) procedure for cardiac arrhythmia (07/16/21) H/O umbilical hernia repair Hx of breast reduction, elective Status post club foot correction at History of cholecystectomy H/O: hysterectomy (2005) Social History adopted: No household members: spouse housing: house number of children: 2 current occupational status: disabled other: She is and her dtr at the age of 8. She had seizures. Smoking Status: Former smoker how long ago did patient quit smoking: She quit smoking in 1995 alcohol intake: current alcohol intake frequency: holidays/special occasions only substance use type: does not use additional social history: - Roberto- ODOT ROS ROS ED Constitutional Constitutional ED: Denies chills or fever(s) Eyes Eyes: Denies change in vision ENT ENT ED: Reports ear pain bilateral (Left worse than right); Denies rhinorrhea or sore throat Respiratory/Chest Respiratory/Chest: Reports cough; Denies dyspnea Gastrointestinal Gastrointestinal: Denies nausea or vomiting Integumentary Denies rash Neurologic Neurologic: Reports headache(s) Hematologic/Lymphatic Hematologic/Lymphatic: Denies easy bleeding or easy bruising EXAM Physical Exam Const Vital Signs: 09/30/24 21:00 Temperature 98.4 F Temperature Source Oral Pulse Rate 70 Respiratory Rate 18 Blood Pressure 147/77 H Blood Pressure Mean 100 Pulse Ox 95 Oxygen Delivery Method Room Air Positive well nourished and well developed General Appearance ED: well developed and NAD HEENT Reports moist mucous membranes HEENT Narrative: Mildly injected right tympanic membrane. Normal right ear canal. Normal external right ear. Normal left external ear. Normal left ear canal. Patient has retracted left erythematous eardrum with bulla that appears to be filled with purulent material presents on the eardrum. Unable to visualize the osseous structures behind the eardrum. No mastoid tenderness or redness appreciated. Normal oropharynx. Eyes PERRL and EOMs intact bilaterally Neck supple Chest Wall inspection of chest normal Resp normal respiratory effort and clear to auscultation bilaterally Cardio regular rate and regular rhythm Neuro oriented x3 Sensorium / Orientation: alert Motor Exam: Negative for general weakness Psych mental status grossly normal Skin no rashes or lesions noted and no wounds MDM MDM MDM Narrative Medical decision making narrative: Patient evaluated for about 24 hours of worsening severe left-sided ear pain. She appears nontoxic but uncomfortable. Is given a dose of oxycodone for her ear pain. Physical exam consistent with otitis media and possibly bullous myringitis. She is not having signs of rupture of the eardrum at this time. Because of physical exam findings of the eardrum will place on antibiotics. Patient is multiple antibiotic allergies but is tolerated cephalosporins and per up-to-date will treat with Omnicef. Given first dose in the emergency room. Is given outpatient ENT follow-up. Does have follow-up with her PCP for tomorrow. Given return precautions. Patient discharged home in stable condition. I do not see any vesicular lesions of low suspicion for shingles. Discharge Plan Triage Chief Complaint: Ear Problem ED Provider: Janine Jacobs Dx/Rx/DC Orders Clinical Impression: Acute left otitis media Instructions: ED Otitis Media Adult Prescriptions: New cefdinir 300 mg capsule 300 mg PO BID 7 Days Qty: 14 0RF oxycodone 5 mg tablet 5 mg PO BID PRN (Reason: pain) 2 Days Qty: 4 0RF No Action gabapentin 400 mg capsule 400 mg PO .qpm and tid prn loratadine 10 mg tablet 10 mg PO DAILY metoprolol succinate 100 mg tablet extended release 24 hr 100 mg PO DAILY magnesium oxide 400 mg (241.3 mg magnesium) tablet 400 mg PO DAILY clonidine HCl 0.2 mg tablet 0.2 mg PO BID sennosides-docusate sodium [Stool Softener-Stimulant Laxat] 8.6-50 mg tablet 2 tab PO DAILY PRN (Reason: constipation) fluticasone propionate [Flonase Allergy Relief] 50 mcg/actuation spray,suspension 1 spray intranasal DAILY Rx Instructions: administer into each nostril turmeric curcumin 1 cap PO DAILY cholecalciferol (vitamin D3) [Vitamin D3] 125 mcg (5,000 unit) Tablet 125 mcg PO DAILY losartan 100 mg Tablet 100 mg PO DAILY Qty: 0 0RF cephalexin 500 mg capsule 500 mg PO .tuesday hydrochlorothiazide 25 mg tablet 50 mg PO DAILY duloxetine [Cymbalta] 30 mg capsule,delayed release(DR/EC) 90 mg PO QHS Rx Instructions: Take with one 60 mg for total of 90 mg po daily. hydrocodone-acetaminophen [hydrocodone-acetaminophen] 5-325 mg tablet 1 tab PO Q6H PRN PRN (Reason: Pain) 3 Days Qty: 12 0RF zinc 50 mg capsule 50 mg PO DAILY ascorbic acid (vitamin C) 500 mg capsule 500 mg PO DAILY buspirone 10 mg tablet 20 mg PO BID ferrous sulfate [iron] 325 mg (65 mg iron) tablet 325 mg PO DAILY Azo Men 500 mg capsule 1,000 mg PO DAILY atorvastatin 40 mg Tablet 40 mg PO QHS 30 Days Qty: 30 0RF clopidogrel [Plavix] 75 mg tablet 75 mg PO DAILY Qty: 30 0RF Primary Care Provider: Slim Denson Referrals: Slim Denson DO [Primary Care Provider] - Darren Hoover MD [Med Staff - Active Staff] - Activity Restrictions/Additional Instructions: You must take Tylenol as needed for pain or ibuprofen. You been given a couple pills for stronger pain medication for severe pain. With the next 48 hours once antibiotic and your pain should improve. If you feel a pop and have drainage of your ear please follow-up with ENT. If you continue with pain please follow-up with ENT. Print Language: Spanish Disposition Disposition: Home, Self Care
[2024-09-30] MEDS: oxyCODONE 5 MG Tablet PO (21:56)
[2024-09-30 22:03] VITALS: BP 147/77; PULSE 70; RESP 18; TEMP 36.9; O2SAT 95
[2024-09-30] MEDS: Cefdinir 300 MG Capsule PO (22:05)
== END 2024-09-30 22:09 | disposition home or self-care (01) ==
PROVIDERS: Emergency Provider Emergency Medicine; PCP Student in an Organized Health Care Education/Training Program; Referring Provider Emergency Medicine; Visit Provider Emergency Medicine
DX: H66.92 Otitis media, unspecified, left ear (principal); I25.10 Atherosclerotic heart disease of native coronary artery without angina pectoris; Z82.49 Family history of ischemic heart disease and other diseases of the circulatory system; I10 Essential (primary) hypertension; Z87.891 Personal history of nicotine dependence; Z87.440 Personal history of urinary (tract) infections; Z86.73 Personal history of transient ischemic attack (TIA), and cerebral infarction without residual deficits; Z86.718 Personal history of other venous thrombosis and embolism; Z86.16 Personal history of COVID-19; G47.33 Obstructive sleep apnea (adult) (pediatric); K21.9 Gastro-esophageal reflux disease without esophagitis; Z95.810 Presence of automatic (implantable) cardiac defibrillator; Z90.49 Acquired absence of other specified parts of digestive tract; Z90.710 Acquired absence of both cervix and uterus; R05.9 Cough, unspecified; Z95.2 Presence of prosthetic heart valve
CPT/HCPCS: 99283

== ENCOUNTER → 2024-12-18 | Outpatient (CLI) | payer OTHER, MEDICARE, SELFPAY ==
[2023-04-01 16:09] VITALS: BMI 33.4
[2024-12-18 12:40] LABS: Hematocrit 42.2 % (37-47); Hemoglobin 13.8 g/dL (12.0-15.0); Immature Granulocytes Count 0.020 X10^3/uL (0.0-0.0); Mean Corp Hgb Conc 32.7 g/dL (32-36); Mean Corpuscular Volume 87.7 fL (81-99); Mean Platelet Vol. 10.3 fl (6.2-12.0); NRBC Flagged by Analyzer 0 % (0-5); Platelet Count 234 K/mm3 (150-450); RBC Distribution Width CV 14.0 % (11.6-14.6); RBC Distribution Width SD 44.7 fl (35.1-43.9); Red Blood Count 4.81 M/mm3 (4.2-5.4); White Blood Count 5.2 K/mm3 (4.4-11.0)
[2024-12-18 13:21] LABS: Anion Gap 12 (5-15); BUN 16 mg/dL (4-19); BUN/Creat Ratio 18.5 RATIO (10-20); Calcium,Total 9.2 mg/dL (7.6-11.0); Carbon Dioxide 23.2 mmol/L (21.0-32.0); Chloride 104 mmol/L (98-108); Free T3 2.5 pg/mL (2.18-3.98); Glucose 142 mg/dL (70-99); Potassium 3.4 mmol/L (3.3-5.1); Vitamin D,25 Hydroxy 52.9 ng/mL (30-100)
== END | disposition home or self-care (01) ==
PROVIDERS: PCP Student in an Organized Health Care Education/Training Program; Referring Provider Nurse Practitioner Gerontology; Visit Provider Nurse Practitioner Gerontology
DX: R42 Dizziness and giddiness (principal); R53.83 Other fatigue
CPT/HCPCS: 36415; 80048; 82306; 84439; 84443; 84481; 85025

== ENCOUNTER → 2025-01-03 | Outpatient (CLI) | payer OTHER, MEDICARE, SELFPAY ==
[2023-04-01 16:09] VITALS: BMI 33.4
--- NOTE | 2025-01-03 14:16 | CDU_ITS ---
Reason For Study Reason For Study: DIZZINESS Rt. Velocities/BP Lt. Velocities/BP Prox CCA 101.6/13.9 cm/sec. Prox CCA 136.3/21.2 cm/sec. Mid CCA 103.4/15.7 cm/sec. Mid CCA 171.0/24.8 cm/sec. Dist CCA 105.2/19.4 cm/sec. Dist CCA 132.6/24.8 cm/sec. Prox ICA 71.1/8.5 cm/sec. Prox ICA 16.2/15.7 cm/sec. Mid ICA 91.1/16.3 cm/sec. Mid ICA 87.9/17.9 cm/sec. Dist ICA 27.2/7.4 cm/sec. Dist ICA 36.6/10.8 cm/sec. Rt. ICA/CCA = 91.1/103.4=0.9. Lt. ICA/CCA = 116.2/171.0=0.7. Prox ECA 121.6/13.9 cm/sec. Prox ECA 121.6/8.4 cm/sec. Rt. Vert. 69.5/11.0 cm/sec. LT Vert is bidirectional. Right Extracranial There is intimal thickening but no significant atherosclerotic plaque noted in the right common carotid artery. There is homogeneous, smooth atherosclerotic plaque noted in the right internal carotid artery. There is homogeneous, smooth atherosclerotic plaque noted in the right external carotid artery. Antegrade flow is noted in the right vertebral artery. Left Extracranial There is intimal thickening but no significant atherosclerotic plaque noted in the left common carotid artery. There is homogeneous, smooth atherosclerotic plaque noted in the left internal carotid artery. There is no significant atherosclerotic plaque noted in the left external carotid artery. Biphasic flow is noted in the left vertebral artery. Procedure Carotid Duplex [id number]. This is a Carotid Duplex examination using B-mode, color flow and specral Doppler. The study was technically difficult. Due to body habitus. Exam performed in department. VL/Carotid Duplex Ultrasound Interpretation Summary Mild (<50%) stenosis right extracranial internal carotid. Mild (<50%) stenosis left extracranial internal carotid. Flow within the right verterbral artery is antegrade. Flow within the left verterbra l artery is bidirectional, consistent with subclavian steal phenomenon. Ordering Physician: Amy Sorensen Referring Physician: Slim Denson Performed By: Mary Stark RDCS, RVT
== END | disposition home or self-care (01) ==
LOC: CVS 14:15
PROVIDERS: PCP Student in an Organized Health Care Education/Training Program; Referring Provider Nurse Practitioner Gerontology; Visit Provider Nurse Practitioner Gerontology
DX: R42 Dizziness and giddiness (principal)
CPT/HCPCS: 93880

== ENCOUNTER 2025-01-16 20:08 | Emergency (ER) | payer OTHER, MEDICARE, SELFPAY ==
[2023-04-01 16:09] VITALS: BMI 33.4
[2025-01-16] VITALS (11 sets, daily range): BP systolic 93–134; BP diastolic 52–64; PULSE 60–64; RESP 13–24; TEMP 36; O2SAT 79–95; BMI 44.4
--- NOTE | 2025-01-16 20:25 | EKG12_ITS ---
Test Reason : CP/SHOULDER PAIN Blood Pressure : */* mmHG Vent. Rate : 70 BPM Atrial Rate : 60 BPM P-R Int : 160 ms QRS Dur : 92 ms QT Int : 420 ms P-R-T Axes : -3 -3 -88 degrees QTcB Int : 453 ms Atrial-paced rhythm with occasional Premature ventricular complexes T wave abnormality, consider anterior ischemia Abnormal ECG Confirmed by Tenzin Bond ([id number]), avid editor СЕРГЕЙ VALDERRAMA ([id number]) on 01/18/2025 5:47:31 AM Referred By: ABDELRAHMAN Confirmed By: Tenzin Bond
--- NOTE | 2025-01-16 20:28 | RAD_ITS ---
PROCEDURE: CHEST PA AND LATERAL 01/16/2025 REASON FOR EXAM: CHEST PAIN TECHNIQUE: Procedure Code: RADCXR Modality: DX Procedure: CHEST PA AND LATERAL COMPARISON: 01/05/2024 FINDINGS: Devices: Left chest wall dual lead ICD in stable positioning. Lungs/Pleura: Small left basilar pleural effusion and/or atelectasis. Moderate hiatal hernia in the lower left lung base/mediastinum, no significant change. Right lung is clear. No pneumothorax. Heart/Mediastinum: Cardiomegaly. Aortic arch stent graft, and aortic valve prosthesis. Evidence of prior CABG with sternotomy wires and multiple mediastinal surgical clips. Bones/Soft tissues: Degenerative changes of the spine. Cholecystectomy surgical clips. RAD/Chest PA and Lateral IMPRESSION: 1. Cardiomegaly, with cardiovascular hardware as noted above. 2. Small left basilar pleural effusion and/or atelectasis. 3. Moderate hiatal hernia in the left lower thorax, no significant change. Reading Location: [id number]
[2025-01-16 22:17] LABS: Hematocrit 45.3 % (37-47); Hemoglobin 15.4 g/dL (12.0-15.0); Immature Granulocytes Count 0.030 X10^3/uL (0.0-0.0); Mean Corp Hgb Conc 34.0 g/dL (32-36); Mean Corpuscular Volume 87.1 fL (81-99); NRBC Flagged by Analyzer 0 % (0-5); POSITIVE COUNT YES; RBC Distribution Width CV 14.1 % (11.6-14.6); RBC Distribution Width SD 45.0 fl (35.1-43.9); Red Blood Count 5.20 M/mm3 (4.2-5.4); White Blood Count 8.0 K/mm3 (4.4-11.0)
--- NOTE | 2025-01-16 22:20 | CT_ITS ---
PROCEDURE: CTA CHEST W/WO CONTRAST 01/16/2025 REASON FOR EXAM: CHEST PAIN WITH HISTORY OF PRIOR DISSECTION. TECHNIQUE: Procedure Code: [id number] Modality: CT Procedure: CTA CHEST W/WO CONTRAST Multiplanar Sagittal and Coronal images were obtained. CONTRAST: Isovue 370 VOLUME: 100 mL One or more dose reduction techniques were used (e.g., Automated exposure control, adjustment of the mA and/or kV according to patient size, use of iterative reconstruction technique). RADIATION DOSE SUMMARY: CTDlvol: 20.50 mGy DLP: 860 mGycm COMPARISON: Chest radiograph on 01/16/2025. CT scan on 08/16/2021. FINDINGS: Increased subsegmental atelectatic airspace disease of the lingula. Please evaluate to exclude superimposed pneumonia. Complete resolution of bilateral pleural effusions. Unchanged cardiomegaly. Unchanged coronary artery calcifications. Unchanged enlarged main pulmonary artery, probably pulmonary arterial hypertension. Again is noted unremarkable sternotomy site. Unchanged moderate-sized hiatal hernia. Aortic valve prosthesis is unchanged. Unremarkable pacemaker. Post repair of aortic dissection. Ascending aorta postsurgical changes, maximal transverse diameter 4 cm at the aortic root just distal to the valve prosthesis, mid ascending is 3 cm, no dissection. Stent in the arch to proximal descending, maximal 2.7 cm at the proximal descending, no dissection. Dissection in the distal descending aorta to the abdomen, maximal transverse diameter of the descending aortic lumen 2.8 cm AP by 2.5 cm transverse, and appears similar to the prior study. Stent in the proximal left subclavian artery. The great vessels are patent with no dissection. Normal enhancement of the main pulmonary artery and right and left pulmonary arteries. Normal enhancement of the bilateral peripheral pulmonary arteries. There is no demonstrated pulmonary embolism. Normal thoracic aorta and visualized great vessels. Normal pericardium. Normal mediastinum. Normal hilar regions. Normal visualized trachea and bronchi. Normal pleura. Prior cholecystectomy. Normal remaining visualized upper abdomen. No demonstrated pulmonary embolism or acute arterial dissection. CT/CTA Chest W/WO Contrast IMPRESSION: No demonstrated pulmonary embolism or acute arterial dissection. Increased subsegmental atelectatic airspace disease of the lingula. Please yana luate to exclude superimposed pneumonia. Reading Location[facility]
--- NOTE | 2025-01-16 22:21 | ED.VIS.CHEST ---
HPI History of Present Illness Chief Complaint: Chest Pain Informant: patient Onset/Context/Timing Onset: Today and Hours Activity at onset: gradual Timing: Continuous Quality: Positive for Aching Location: Substernal Current Severity: Moderate Maximum Severity: Moderate Worsened By: Nothing Relieved By: Nothing Associated Symptoms: Negative for Nausea, Vomiting, Diaphoresis, Dyspnea, Cough, Fever, Lightheadedness, Acid Reflux or Palpitations Narrative Narrative: 59-year-old female history of prior aortic dissection repair at the [facility] in 2021. Also history of prior strokes. States that today about 6 hours ago around 4 PM started having chest pain neck pain, pain in both shoulders and her upper back. She cannot remember what it felt like when she had a dissection because she woke up a week later after having it surgically repaired. Denies any recent exertional dyspnea. No pleuritic pain. No hemoptysis. No leg pain or swelling. Recent Illness/Hospitalization: No CVD Risk Factors: Negative for Hypertension, Diabetes or Hypercholesterolemia PE Risk Factors: Negative for Recent Travel/Surgery, Recent Immobilization, Prior DVT or PE, Cancer or OCP + Smoking + >/=35 TAD Risk Factors: Negative for Marfan's Syndrome, Hypertension or Family History [facility] Medical History Aortic dissection Stroke/cerebrovascular accident Hiatal hernia Left upper extremity deep vein thrombosis Nonobstructive atherosclerosis of coronary artery Cerebellar infarction (07/13/21) Essential hypertension Peripheral neuropathy Iron deficiency GERD (gastroesophageal reflux disease) Sustained ventricular tachycardia Cognitive dysfunction Radial artery thrombosis, left Seizure disorder Physical debility Intracerebral bleed due to trauma Acute blood loss anemia Insomnia Infarction of left basal ganglia History of IBS Tobacco dependence due to cigarettes, in remission History of aortic dissection (07/04/21) Neurogenic bladder Prediabetes DVT (deep venous thrombosis) (07/14/21) History of traumatic brain injury Urinary retention Major depressive disorder, recurrent severe without psychotic features Generalized anxiety disorder COVID-19 Ventricular tachycardia Former tobacco use CLARKE (obstructive sleep apnea) Chronic anemia Non-sustained ventricular tachycardia Seizures Arthritis Right inguinal hernia SBO (small bowel obstruction) Endometrial cancer Home Medications ?Medication ?Instructions ?Recorded ?Last Taken ?Type cholecalciferol (vitamin D3) 125 125 mcg PO DAILY Check with 07/02/21 Unknown History mcg (5,000 unit) tablet (Vitamin primary doctor D3) losartan 100 mg tablet 100 mg PO DAILY #0 tabs 08/07/21 Unknown Rx loratadine 10 mg tablet 10 mg PO DAILY 12/03/21 Unknown History metoprolol succinate 100 mg 100 mg PO DAILY 12/03/21 Unknown History tablet,extended release 24 hr clonidine HCl 0.2 mg tablet 0.2 mg PO BID 04/13/22 Unknown History fluticasone propionate 50 1 spray intranasal DAILY 09/28/22 Unknown History mcg/actuation nasal spray,suspension (Flonase Allergy Relief) gabapentin 400 mg capsule 400 mg PO .qpm and tid prn 09/28/22 Unknown History magnesium oxide 400 mg (241.3 mg 400 mg PO DAILY 09/28/22 Unknown History magnesium) tablet sennosides 8.6 mg-docusate sodium 2 tab PO DAILY PRN constipation 09/28/22 Unknown History 50 mg tablet (Stool Softener-Stimulant Laxative) turmeric curcumin 1 cap PO DAILY 09/28/22 Unknown History zinc 50 mg capsule 50 mg PO DAILY 11/24/22 Unknown History ascorbic acid (vitamin C) 500 mg 500 mg PO DAILY 11/25/22 Unknown History capsule buspirone 10 mg tablet 15 mg PO TID 11/25/22 Unknown History clopidogrel 75 mg tablet (Plavix) 75 mg PO DAILY #30 tabs 11/25/22 Unknown Rx ferrous sulfate 325 mg (65 mg 325 mg PO DAILY 11/25/22 Unknown History iron) tablet (iron) cephalexin 500 mg capsule 500 mg PO .tuesday03/18/23 Unknown History duloxetine 30 mg capsule,delayed 60 mg PO QHS 03/18/23 Unknown History release (Cymbalta) hydrochlorothiazide 25 mg tablet 50 mg PO DAILY 03/18/23 Unknown History atorvastatin 40 mg tablet 80 mg PO QHS 12/18/24 Unknown History furosemide 40 mg tablet (Lasix) 40 mg PO QDAY 12/18/24 Unknown History nystatin 100,000 unit/gram topical 1 applic topical QDAY PRN skin 12/18/24 Unknown History powder irritation duloxetine 60 mg capsule,delayed 30 mg PO DAILY 01/16/25 Unknown History release Allergy/AdvReac Type Severity Reaction Status Date / Time nitrofurantoin (From Allergy Hives Verified 01/16/25 20:10 Macrobid) Penicillins (PCN) Allergy Swelling Verified 01/16/25 20:10 amlodipine AdvReac Other Verified 01/16/25 20:10 ciprofloxacin AdvReac Other Verified 01/16/25 20:10 erythromycin base AdvReac Upset Verified 01/16/25 20:10 (Erythromycin Base) Stomach lisinopril AdvReac Other Verified 01/16/25 20:10 sulfamethoxazole (From AdvReac Upset Verified 01/16/25 20:10 Bactrim) Stomach trimethoprim (From Bactrim) AdvReac Upset Verified 01/16/25 20:10 Stomach Family History Mother Cancer Hx endometrial CA. Hypertension Father Myocardial infarction Heart disease Hypertension Grandfather CAD (coronary artery disease) Diabetes Daughter Seizures Surgical History History of aortic valve replacement (07/04/21) History of left heart catheterization (06/16/20) History of inguinal hernia repair History of implantable cardiac defibrillator (ICD) (06/18/20) Hx of repair of dissecting thoracic aortic aneurysm, Ezequiel type A (07/04/21) History of radiofrequency ablation (RFA) procedure for cardiac arrhythmia (07/16/21) H/O umbilical hernia repair Hx of breast reduction, elective Status post club foot correction at History of cholecystectomy H/O: hysterectomy (2005) Social History adopted: No household members: spouse housing: house number of children: 2 current occupational status: disabled other: She is and her dtr at the age of 8. She had seizures. Smoking Status: Former smoker how long ago did patient quit smoking: She quit smoking in 1995 alcohol intake: current alcohol intake frequency: holidays/special occasions only substance use type: does not use additional social history: - Roberto- ODOT ROS ROS ED ROS Narrative Denies recent illness. Denies exertional chest pain. Chest pain, back pain and shoulder pain today. Constitutional Constitutional ED: Denies fever(s) Eyes Eyes: Reports none ENT ENT ED: Denies ear pain Cardiovascular Cardiovascular: Reports as per HPI and chest pain; Denies palpitations or racing heartbeat Respiratory/Chest Respiratory/Chest: Denies cough, dyspnea or dyspnea on exertion Gastrointestinal Gastrointestinal: Denies abdominal pain Genitourinary Genitourinary ED: Denies dysuria or hematuria Musculoskeletal Musculoskeletal: Reports back pain; Denies arthralgias Integumentary Denies abscess or Abrasions Neurologic Neurologic: Denies headache(s) Psychiatric Psychiatric: Denies anxiety or depression Endocrine Endocrinology: Denies cold intolerance Hematologic/Lymphatic Hematologic/Lymphatic: Denies easy bleeding Allergic/Immunologic Allergic/Immunologic ED: Denies mouth swelling, tongue swelling or urticaria EXAM Physical Exam Narrative Exam Narrative: Well-appearing 59-year-old female. Vital signs stable afebrile. Pulse ox 95% on room air no hypoxia. Initial blood pressure 134/59. She does not look septic toxic or in any distress. Significant other at bedside. H EENT exam pupils round react light. Moist mucous membranes. No facial droop. Neck nontender no JVD. Lungs clear to auscultation bilaterally. Heart regular rhythm. Chest wall ribs nontender. Prior well-healed sternotomy. Abdomen soft, nontender, nondistended, normal bowel sounds without peritoneal signs. Patient moving all 4 extremities. 5 out of 5 geographic area intelligence officer strength. Dorsi plantarflexion intact. Neurologically she is awake alert. Answering questions following commands. Good muscle strength. Const Vital Signs: 01/16/25 20:10 01/16/25 21:49 01/16/25 22:04 Temperature 96.8 F L Temperature Source Temporal Pulse Rate 63 60 Respiratory Rate 18 24 H Blood Pressure 134/59 H Blood Pressure Mean 84 Pulse Ox 95 91 Oxygen Delivery Method Room Air Room Air Positive well nourished and well developed; Negative for cachectic, contractures or unkempt General Appearance ED: well developed and NAD; Negative for unkempt, cachectic, contractures or pallor Nutritional Appearance: Negative for cachectic HEENT Reports moist mucous membranes normocephalic and atraumatic Eyes PERRL and EOMs intact bilaterally General Eye ED: Negative for pale conjunctiva or scleral icterus Neck no lymphadenopathy, supple and no JVD Chest Wall inspection of chest normal and palpation of chest normal Resp normal respiratory effort and clear to auscultation bilaterally Cardio regular rate, regular rhythm, S1 normal heart sound and S2 normal heart sound Peripheral Pulses: pulses 2+ throughout GI normal to inspection, nondistended, normoactive bowel sounds, soft to palpation, non-tender, non-distended and no masses Back/Spine no CVA tenderness and no thoracic nor lumbar tenderness Extremity normal to inspection General Extremety ED: Negative for edema, pulses abnormal or tenderness General Extremity: Negative for edema or pulses abnormal Neuro oriented x3 and CN's II-XII intact bilaterally Sensorium / Orientation: awake, alert, oriented to person, oriented to place and oriented to time; Negative for confused, lethargic or stuporous Motor Exam: strength 5/5 throughout Psych mental status grossly normal Appearance: Negative for unkempt Skin no rashes or lesions noted and no wounds General Skin Exam: Negative for jaundice or pallor Rashes: No rashes noted Trauma: Negative for abrasion or laceration Heart Score History: Slightly/Non-Suspicious ECG: Normal Age: >45 - <65 years Risk Factors: 1 or 2 Risk Factors Troponin: </= Normal Limit Score: 2 MDM MDM MDM Narrative Medical decision making narrative: 59-year-old with atypical chest and back pain prior dissections CTA and cardiac workup. Repeat exam patient is resting comfortably at 12:14 AM. Awaiting for 2-hour troponin. Also awaiting for CTA chest results. I did review it myself. I do not see any dissection acutely or aortic rupture. Patient to be turned over to overnight physician to check the 2-hour troponin and the CT results if those are unremarkable other than her prior dissection and chronic changes comfortable being discharged home with chest pain of uncertain etiology. History & Record Review Discussion w/independent historian: Patient Additional record(s) reviewed:: Prior inpatient record, Prior outpatient record, Prior ED visit and Prior labs Lab Data Attestation: I reviewed the patient's lab results. Lab results narrative: CBC shows a normal white count 8 H&H 15 and 45. Chemistries show a gap 14. Normal BUN and creatinine. Glucose 85. Initial troponin 8. 2-hour troponin is Radiography Chest X-Ray - ED: 2 View, Read by ED Physician, Read by Radiologist, Normal, Heart, Mediastinum, Bony Structures, No Acute Disease, Chronic Changes and Left Effusion Diagnostic Testing: Clinical Impression(s) from Imaging Studies Chest X-Ray 01/16/25 20:28 IMPRESSION: 1. Cardiomegaly, with cardiovascular hardware as noted above. 2. Small left basilar pleural effusion and/or atelectasis. 3. Moderate hiatal hernia in the left lower thorax, no significant change. Reading Location: [id number] Chest x-ray, 2 views, AP and lateral, to evaluate a subradiologist. She cardiomegaly. Prior cardiovascular aortic hardware. Left pleural effusion. Chronic changes. Rhythm Strip Rhythm Strip: Paced Rate: 70 Ectopy: None EKG Initial EKG: Attestation: I personally reviewed and interpreted this EKG as follows: Interpretation: Paced Comments: Paced rhythm rate of 70. No acute signs of [place] or ischemia. There is inverted T waves in lead to 3 and aVF. Also V2, V3, V4 5 and 6. Discharge Plan Triage Chief Complaint: Chest Pain ED Provider: Dale Valdez Dx/Rx/DC Orders Clinical Impression: Chest pain, History of aortic dissection, History of stroke Instructions: ED Chest Pain, Uncertain Cause Prescriptions: No Action gabapentin 400 mg capsule 400 mg PO .qpm and tid prn loratadine 10 mg tablet 10 mg PO DAILY metoprolol succinate 100 mg tablet extended release 24 hr 100 mg PO DAILY magnesium oxide 400 mg (241.3 mg magnesium) tablet 400 mg PO DAILY clonidine HCl 0.2 mg tablet 0.2 mg PO BID sennosides-docusate sodium [Stool Softener-Stimulant Laxat] 8.6-50 mg tablet 2 tab PO DAILY PRN (Reason: constipation) fluticasone propionate [Flonase Allergy Relief] 50 mcg/actuation spray,suspension 1 spray intranasal DAILY Rx Instructions: administer into each nostril turmeric curcumin 1 cap PO DAILY furosemide [Lasix] 40 mg tablet 40 mg PO QDAY nystatin 100,000 unit/gram powder 1 applic topical QDAY PRN atorvastatin 40 mg tablet 80 mg PO QHS levothyroxine 75 mcg capsule 75 mcg PO QDAY cholecalciferol (vitamin D3) [Vitamin D3] 125 mcg (5,000 unit) Tablet 125 mcg PO DAILY losartan 100 mg Tablet 100 mg PO DAILY Qty: 0 0RF cephalexin 500 mg capsule 500 mg PO .tuesday hydrochlorothiazide 25 mg tablet 50 mg PO DAILY duloxetine [Cymbalta] 30 mg capsule,delayed release(DR/EC) 90 mg PO QHS Rx Instructions: Take with one 60 mg for total of 90 mg po daily. zinc 50 mg capsule 50 mg PO DAILY ascorbic acid (vitamin C) 500 mg capsule 500 mg PO DAILY buspirone 10 mg tablet 20 mg PO BID ferrous sulfate [iron] 325 mg (65 mg iron) tablet 325 mg PO DAILY Azo Men 500 mg capsule 1,000 mg PO DAILY clopidogrel [Plavix] 75 mg tablet 75 mg PO DAILY Qty: 30 0RF oxycodone 5 mg tablet 5 mg PO BID PRN (Reason: pain) 2 Days Qty: 4 0RF Primary Care Provider: Slim Denson Referrals: Slim Denson DO [Primary Care Provider, Medical] - 3-5 Days if not improving Activity Restrictions/Additional Instructions: Follow-up with your primary care physician if not improving. Return emergency room if feeling a lot worse. Your labs, CAT scan, x-ray and heart enzymes were unremarkable tonight. Print Language: Kiswahili Disposition Disposition: Home, Self Care
[2025-01-16 22:31] LABS: Troponin T High Sensitivity 8 ng/L (<=14)
[2025-01-16 22:37] LABS: Anion Gap 14 (5-15); BUN 18 mg/dL (4-19); BUN/Creat Ratio 17.7 RATIO (10-20); Calcium,Total 9.6 mg/dL (7.6-11.0); Carbon Dioxide 25.8 mmol/L (21.0-32.0); Chloride 100 mmol/L (98-108); Estimated Creatinine Clearance 67.76 ml/min (50-250); Glucose 85 mg/dL (70-99); Potassium 3.6 mmol/L (3.3-5.1)
[2025-01-16 22:54] LABS: Differential Indicated SCAN CRITERIA MET
[2025-01-17] VITALS: BP 106/56; PULSE 60; RESP 16; O2SAT 91
[2025-01-17 00:08] LABS: Differential Comment SCANNED; Red Cell Morphology NORM C+C NORMAL (NORM C&C)
[2025-01-17 00:15] VITALS: BP 101/58; PULSE 60; RESP 22; O2SAT 87
[2025-01-17 00:30] VITALS: BP 112/56; PULSE 60; RESP 17; O2SAT 91
[2025-01-17 00:42] LABS: Troponin T High Sens 2 HR 8 ng/L (<=14)
[2025-01-17 00:45] VITALS: BP 107/70; PULSE 60; RESP 14; O2SAT 92
[2025-01-17 01:00] VITALS: RESP 18
== END 2025-01-17 02:10 | disposition home or self-care (01) ==
PROVIDERS: Emergency Provider Emergency Medicine; PCP Student in an Organized Health Care Education/Training Program; Visit Provider Emergency Medicine
DX: R07.9 Chest pain, unspecified (principal); Z86.718 Personal history of other venous thrombosis and embolism; Z87.891 Personal history of nicotine dependence; I25.10 Atherosclerotic heart disease of native coronary artery without angina pectoris; I10 Essential (primary) hypertension; Z90.710 Acquired absence of both cervix and uterus; M54.9 Dorsalgia, unspecified; Z90.49 Acquired absence of other specified parts of digestive tract; Z86.16 Personal history of COVID-19; Z87.820 Personal history of traumatic brain injury; Z95.2 Presence of prosthetic heart valve; J90 Pleural effusion, not elsewhere classified
CPT/HCPCS: 71046; 71275; 80048; 84484; 85025; 93005; 96374; 96375; 99284; Q9967; A4216; J2405

== ENCOUNTER → 2025-01-21 | Outpatient (CLI) | payer OTHER, MEDICARE, SELFPAY ==
[2023-04-01 16:09] VITALS: BMI 33.4
--- NOTE | 2025-01-21 13:40 | ECHOCS_ITS ---
Reason For Study Reason For Study: Valve Replacement Procedure This was a 2D Doppler, Color Flow transthoracic echocardiogram. The study was technically difficult. Contrast injection was performed. Exam performed in department. Left Ventricle Normal left ventricle. The left ventricular ejection fraction is 65 %. Stage 1 diastolic dysfunction. No regional wall motion abnormalities noted. Right Ventricle Normal RV size. ICD or pacer leads identified within the right ventricle. Normal systolic function. Atria Normal left atrium. Normal right atrium. Mitral Valve Normal mitral valve. Tricuspid Valve Normal tricuspid valve. Mild (1+) tricuspid valve insufficiency. Aortic Valve Bioprosthetic aortic valve. Pulmonic Valve Normal pulmonic valve. Great Vessels Aortic root repair. The pulmonary artery is normal size. Inferior vena cava collapse with respiration. Pericardium/Pleural No pericardial effusion. Medication 22 gauge I.V. with prn adaptor inserted into right arm. Diluted definity 3ml given slow IV push to enhance endocardial definition. MMode/2D Measurements & Calculations LVIDd: 3.6 cm IVSd: 0.76 cm LVOT diam: 2.0 cm LVIDs: 2.4 cm LVPWd: 0.74 cm FS: 33.9 % LVOT area: 3.3 cm2 Ao root diam: 3.6 cm LAV(MOD-sp2): 37.1 ml LVAd ap4: 30.5 cm2 LVLd ap4: 7.7 cm EDV(MOD-sp4): 98.7 ml EDV(sp4-el): 102.6 ml LVAs ap4: 15.7 cm2 LVLs ap4: 6.2 cm ESV(MOD-sp4): 32.0 ml ESV(sp4-el): 33.7 ml EF(MOD-sp4): 67.5 % EF(sp4-el): 67.2 % SV(MOD-sp4): 66.7 ml SV(sp4-el): 69.0 ml SI(MOD-sp4): 33.5 ml/m2 Time Measurements MV dec time: 0.21 sec Doppler Measurements & Calculations MV E max jewel: 75.3 cm/sec Lat Peak E' Jewel: 9.4 cm/sec Med Peak E' Jewel: 5.4 cm/sec MV A max jewel: 87.7 cm/sec E/E' lat: 8.1 E/E' med: 13.9 MV E/A: 0.86 MV V2 max: 107.4 cm/sec MV P1/2t max jewel: 104.5 cm/sec Ao V2 max: 223.3 cm/sec MV max P.6 mmHg MV P1/2t: 77.5 msec Ao max P.2 mmHg MV V2 mean: 51.5 cm/sec Ao V2 mean: 142.9 cm/sec MV mean P.4 mmHg MV dec slope: 394.9 cm/sec2 Ao mean P.9 mmHg MV V2 VTI: 35.3 cm MVA(P1/2t): 2.8 cm2 Ao V2 VTI: 43.2 cm AV (velocity ratio): 0.65 MVA(VTI): 2.6 cm2 LA(I,D): 2.1 cm2 LA(V,D): 1.9 cm2 LV V1 max: 127.7 cm/sec MR max jewel: 563.0 cm/sec SV(LVOT): 91.9 ml LV V1 max P.5 mmHg MR max P.8 mmHg LV V1 mean P.0 mmHg MR mean jewel: 420.0 cm/sec LV V1 mean: 79.7 cm/sec MR mean P.0 mmHg LV V1 VTI: 28.2 cm MR VTI: 186.7 cm TR max jewel: 212.0 cm/sec TR max P.0 mmHg ECHO/Echo Complete W/ Contrast Interpretation Summary Normal left ventricle. The left ventricular ejection fraction is 65 %. No regional wall motion abnormalities noted. Bioprosthetic aortic valve. Aortic root repair. Stage 1 diastolic dysfunction. Contrast injection was performed. Ordering Physician: Amy Sorensen Referring Physician: Amy Sorensen Performed By: Sonido Pedersen RCS
== END | disposition home or self-care (01) ==
PROVIDERS: PCP Student in an Organized Health Care Education/Training Program; Referring Provider Nurse Practitioner Gerontology; Visit Provider Nurse Practitioner Gerontology
DX: Z95.2 Presence of prosthetic heart valve (principal)
CPT/HCPCS: 93306; Q9957; A4216; C8929

== ENCOUNTER → 2025-04-10 | Outpatient (CLI) | payer OTHER, MEDICARE, SELFPAY ==
[2023-04-01 16:09] VITALS: BMI 33.4
--- NOTE | 2025-04-10 13:36 | NEURO ---
NCS and/or EMG Patient Report Ordering Doctor: QUYNH GARAY DATE OF SERVICE: 04/10/25 Gema presents with complaints of altered sensation in the right lower leg and weakness. Electrodiagnostic findings: Right peroneal motor nerve demonstrates normal distal latency with borderline reduced amplitude and conduction velocity. Right tibial motor response demonstrates prolonged distal latency with normal amplitude and normal conduction velocity. Normal right tibial and right peroneal F?wave. Prolonged right tibial H reflex. Normal right sural and right superficial peroneal response. Needle EMG testing was performed in the right lower limb. All muscles tested showed no evidence of denervation with normal motor unit action potentials. Electrodiagnostic impression: This is an abnormal study 1. Electrodiagnostic findings suggestive of a right tibial mononeuropathy. Would recommend correlation with left lower limb to better evaluate for peripheral polyneuropathy. Multi Select Codes Neurology Neurology Interp Codes: 79571-49 Musc test done w/n test comp (interp) and 15996-35 Nrv cndj tst 5-6 studies (interp)
== END | disposition home or self-care (01) ==
LOC: MRI 11:54 → PSN 12:00
PROVIDERS: PCP Student in an Organized Health Care Education/Training Program; Referring Provider Physician Assistant Medical; Visit Provider Physician Assistant Medical
DX: R29.898 Other symptoms and signs involving the musculoskeletal system (principal)
CPT/HCPCS: 95886; 95909